=== PATIENT | female | born 1940 | race Two or more races ===

== ENCOUNTER → 2020-05-24 10:58 | Outpatient (BNVA) | payer MEDICARE, SELFPAY | PROVIDERS: PCP Nurse Practitioner Family; Visit Provider Surgery Vascular Surgery | DX: Z76.89 Persons encountering health services in other specified circumstances (principal) ==

== ENCOUNTER → 2020-05-30 11:12 | Outpatient (BNVA) | payer MEDICARE, SELFPAY | PROVIDERS: PCP Nurse Practitioner Family; Referring Provider Nurse Practitioner Family; Visit Provider Internal Medicine | DX: I10 Essential (primary) hypertension (principal); I20.9 Angina pectoris, unspecified; E11.8 Type 2 diabetes mellitus with unspecified complications; E78.49 Other hyperlipidemia | CPT/HCPCS: 93005; 99202 ==

== ENCOUNTER 2020-06-11 10:39 | Outpatient (REF) | payer MEDICARE, SELFPAY ==
--- NOTE | 2020-06-11 10:57 | XR_ITS ---
EXAMINATION: BILATERAL SHOULDER X-RAY CLINICAL INFORMATION: Bilateral shoulder pain COMPARISON: Right shoulder x-ray January 2020 and left shoulder x-ray September 2015 TECHNIQUE: 3 views of the shoulder FINDINGS: Bone alignment is normal. No fracture or dislocation is seen. There is mild arthritis at the glenohumeral and acromioclavicular joints with small osteophytes. Soft tissues are unremarkable. XR/XR shoulder RT min 2V IMPRESSION: Mild bilateral arthritis.
--- NOTE | 2020-06-11 10:57 | XR_ITS ---
EXAMINATION: BILATERAL SHOULDER X-RAY CLINICAL INFORMATION: Bilateral shoulder pain COMPARISON: Right shoulder x-ray January 2020 and left shoulder x-ray September 2015 TECHNIQUE: 3 views of the shoulder FINDINGS: Bone alignment is normal. No fracture or dislocation is seen. There is mild arthritis at the glenohumeral and acromioclavicular joints with small osteophytes. Soft tissues are unremarkable. XR/XR shoulder LT min 2V IMPRESSION: Mild bilateral arthritis.
== END 2020-06-11 10:40 | disposition home or self-care (01) ==
LOC: HO.HOSX 10:39
PROVIDERS: PCP Nurse Practitioner Family; Referring Provider Nurse Practitioner Family; Visit Provider Orthopaedic Surgery
DX: M25.519 Pain in unspecified shoulder (principal); M25.512 Pain in left shoulder; M75.51 Bursitis of right shoulder
CPT/HCPCS: 20610; 73030; 99212; J1100

== ENCOUNTER → 2020-06-12 10:20 | Outpatient (BNVA) | payer MEDICARE, SELFPAY | PROVIDERS: PCP Nurse Practitioner Family; Referring Provider Nurse Practitioner Family; Visit Provider Hospitalist | DX: R91.8 Other nonspecific abnormal finding of lung field (principal); J45.909 Unspecified asthma, uncomplicated | CPT/HCPCS: 99202 ==

== ENCOUNTER 2020-06-20 09:47 | Outpatient (REF) | payer MEDICARE, SELFPAY ==
--- NOTE | 2020-06-20 10:00 | PFT_ITS ---
FLOWS: FEV1 of 142% of predicted at 2.41 L. FVC 142% of predicted at 3.22 L. FEV1 to FVC ratio of 0.75. No bronchodilator response. LUNG VOLUMES: Total lung capacity 109% of predicted at 5.02 L. Residual volume 83% of predicted at 1.87 L. Slow vital capacity 133% of predicted at 3.14 L. Expiratory reserve volume 199% of predicted at 0.80 L. Diffusion capacity is mildly decreased. IMPRESSION: No obstructive or restrictive ventilatory defect. No bronchodilator response. Decreased diffusion capacity suggests emphysema. Ryan Moran MD AP/MODL / [id number]
[2020-06-20 12:10] LABS: Estimated Average Glucose 194 mg/dL; Hemoglobin A1c % 8.4 %
[2020-06-20 12:23] LABS: Alanine Aminotransferase 41 U/L (0-31); Albumin Level 4.1 g/dL (3.5-5.0); Alkaline Phosphatase 101 U/L (39-117); Anion Gap 13 (12-20); Aspartate Amino Transferase 25 U/L (5-31); Bilirubin Total 1.1 mg/dL (0.0-1.0); Blood Urea Nitrogen 22 mg/dL (9-16); Calcium 9.2 mg/dL (8.4-10.2); Carbon Dioxide 28 mmol/L (22-29); Chloride 103 mmol/L (96-108); Cholesterol 144 mg/dL; Estimated Glomerular Filt Rate 55; Glucose Random 295 mg/dL (60-115); HDL Cholesterol 68 mg/dL; LDL Cholesterol Calculated 56 mg/dl; Potassium 3.9 mmol/l (3.3-5.1); Sodium 140 mmol/L (135-145); Total Protein 6.9 g/dL (6.5-8.0); Triglycerides 100 mg/dL
[2020-06-20 12:24] LABS: Creatinine Urine 55.15 mg/dL; Microalbumin Urine < 5.0 mg/L
[2020-06-21 12:01] LABS: LDL Cholesterol Direct 57 mg/dL (<100)
== END 2020-06-20 09:48 | disposition home or self-care (01) ==
LOC: HO.RESP 09:47
PROVIDERS: PCP Nurse Practitioner Family; Visit Provider Hospitalist
DX: J44.9 Chronic obstructive pulmonary disease, unspecified (principal); R06.02 Shortness of breath
CPT/HCPCS: 80053; 80061; 82043; 83036; 83721; 94060; 94727; 94729

== ENCOUNTER → 2020-06-28 13:19 | Outpatient (BNVA) | payer MEDICARE, SELFPAY | PROVIDERS: PCP Nurse Practitioner Family; Visit Provider Internal Medicine | DX: E11.65 Type 2 diabetes mellitus with hyperglycemia (principal); Z79.4 Long term (current) use of insulin; E78.5 Hyperlipidemia, unspecified; I10 Essential (primary) hypertension | CPT/HCPCS: 82947; Q3014 ==

== ENCOUNTER 2020-07-13 10:28 | Outpatient (REF) | payer MEDICARE, SELFPAY | END 2020-07-13 10:29 | disposition home or self-care (01) | LOC: HO.LAB 10:28 | PROVIDERS: PCP Nurse Practitioner Family; Visit Provider Internal Medicine | DX: Z20.828 Contact with and (suspected) exposure to other viral communicable diseases (principal) | CPT/HCPCS: C9803; U0003 ==

== ENCOUNTER → 2020-07-18 08:22 | Outpatient (REF) | payer MEDICARE, SELFPAY ==
--- NOTE | 2020-07-18 | NM_ITS ---
Myocardial perfusion study Indication: Chest pain to evaluate for myocardial ischemia Technique: The patient was brought in for a Lexiscan perfusion study on 07/18/2020. Patient performed low-level exercise and was injected 0.4 mg of Lexiscan intravenously. Within a minute of injection, 25 mCi of sestamibi was given intravenously. Images were obtained using the SPECT gamma camera interlaced with the gating device. Images were obtained in supine position. Resting perfusion study was performed on 07/25/2020. Patient was administered 25 mCi of sestamibi intravenously at rest. Images were then obtained in supine position. Images obtained with and without CT attenuation. Total DLP 68 mGy-cm. Images were processed with the software and compared side to side in short axis, horizontal long axis and vertical long axis views. Findings: The stress perfusion study showed non attenuated images show small area of mildly to moderately reduced uptake in the apex of the LV myocardium. Attenuation corrected images also shows small area of mildly reduced uptake in the apex of the LV myocardium. The gated study shows normal LV systolic function with calculated LVEF of greater than 70 %. LV cavity is normal in size. The gated study shows normal systolic wall thickening and contraction of segments. Resting study shows normal uptake of radiotracer in all segments of LV myocardium. Gating at rest reveals systolic wall motion with ejection fraction at greater than 70 %. The findings are consistent with small area of mild intensity apical ischemia. NM/NM velma perf SPECT rest & str Impression: 1. Myocardial perfusion imaging study shows mild intensity apical ischemia 2. Gated LVEF is greater than 70% 3. Transient ischemic dilatation not present EKG is nondiagnostic for ischemia
--- NOTE | 2020-07-18 08:38 | CA_ITS ---
Transthoracic Echocardiogram Patient (Last, First, Middle): Ana Varghese, Gender: Female Date of : 1940 Age: 79 Procedure Date: 07/18/2020 Procedure Type: Transthoracic Echocardiogram Location: OP Height: 154.94 cm Weight: 65.77 kg BSA: 1.65 m2 Heart Rate: bpm BP: 118 / 54 mmHg Racecar Driver: Lisandro MD: [place] MD General Internist And Physician Leader: Lionel Mcdermott MD Symptoms: I20.9 - Angina pectoris, unspecified Study Quality: Good ECG Rhythm: Sinus Conclusions: - 1. Normal LV systolic function with grade 1 diastolic dysfunction 2. Normal cardiac valvular Doppler 3. Normal RV systolic pressure 4. No pericardial effusion Findings Left Ventricle Normal left ventricular size, thickness, and systolic function. The visually estimated ejection fraction is between 60-65%. Spectral Doppler is indicative of an impaired relaxation filling pattern. E/E prime ratio is <8, consistent with normal filling pressures. Evidence suggests grade I (mild) diastolic dysfunction. Atria The left atrium is normal in size. There is lipomatous hypertrophy of the interatrial septum. There is no evidence of interatrial shunt. The right atrium is normal in size. Aortic Valve There is mild thickening of the aortic valve. There is no aortic valve stenosis. There is no aortic valve regurgitation. Mitral Valve There is mild anterior and posterior mitral leaflet thickening. There is trace mitral valve regurgitation. There is no mitral valve stenosis. Pulmonic Valve The pulmonic valve was not well visualized. Tricuspid Valve Likely normal tricuspid valve structure and function. There is trace tricuspid valve regurgitation. The right ventricular systolic pressure is normal. The right ventricular systolic pressure is 23 mmHg. Normal right atrial pressure. There is no evidence of pulmonary hypertension. Great Vessels All visible segments of the aorta are normal in size. The pulmonary artery was not well visualized. Venous The inferior vena cava is normal in size and collapses greater than 50% with inspiration. Pericardium/Pleural There is no evidence of pericardial effusion. Prior Study Comparison No previous study in the last 5 years for comparison Measurements 2D Linear Measurements RVIDd: 3.22 RVIDd Index: 1.95 IVSd: 1.06 0.6-0.9/0.6-1.0 cm LVIDd: 3.73 3.9-5.3/4.2-5.9 cm LVIDd Index: 2.26 2.4-3.2/2.2-3.1 cm/m2 LVIDs: 2.55 2.0-3.6 cm LVPWd: 0.97 0.7-1.1 cm Ao Root: 2.70 2.1-3.5 cm LA Diam: 3.10 2.7-3.8/3.0-4.0 cm LAIDs Index: 1.88 1.5-2.3 cm/m2 LV Mass: 144.26 67-162/88-224 g LV Mass Index: 87.43 43-95/49-115 g/m2 LVOT Diam: 2.00 3.0+(-)1.3 cm 2D Systolic Function EF 4C: 42.40 >55% EF 2C: 72.30 >55% EF BiP: 59.10 >55% Mitral Valve MV Pk E: 0.55 MV PK A: 1.12 MV Decel Time: 155.00 E/A: 0.50 E'Lateral: 8.27 E'Medial: 4.79 E/E' Med: 11.40 E/E' Lat: 6.60 Aortic Valve AoV Pk Paulino: 1.31 AoV Mn Paulino: 1.08 AoV VTI: 0.24 AoV Pk Grad: 7.00 Aov Mn Grad: 5.00 PIPPA Cont.VTI: 2.57 LVOT LVOT Pk Paulino: 1.14 LVOT Mn Paulino: 0.76 LVOT VTI: 0.20 LVOT Pk Grad: 5.00 LVOT Mn Grad: 3.00 LVOT Diam: 2.00 LVOT Area: 3.14 Diastolic Function MV Pk E: 0.55 MV Pk A: 1.12 E/A: 0.50 E'Medial: 4.79 E/E' Med: 11.40 E' Laterial: 8.27 E/E' Lat: 6.60 Tricuspid Valve TR Pk Paulino: 2.21 TR Pk Grad: 20.00 RA Press: 3.00 RVSP: 23.00 Great Vessels Aorta Ao Root-2D: 2.70 2.0-3.7 cm Ao Asc: 3.30 2.1-3.4 cm Ao Arch: 2.20 Updated in Other Vendor System with Status of Final Lionel Mcdermott MD electronically signed on 07/19/2020 2:24:15 PM with status of Final
--- NOTE | 2020-07-18 08:38 | CA_ITS ---
Acquisition Time: 2020-07-18 10:29:14 Total Exercise Time: 00:02:00 Test Indications: CP Medications: SEE CHART Protocol: LEXISCAN Max HR: 120 BPM 85% of Pred: 140 BPM Max BP: 124/076 mmHG Max Work Load: 1.0 METS Pharmacological stress test with Lexiscan injection, while sitting and kicking her legs, without anginal symptoms, without arrythmia, with normotensive response to injection, with nondiagnostic EKG for ischemia. In recovery she had report of fatigue and was treated with Aminophylline 50mg IVP to reverse Lexiscan with improvement in symptom. Nuclear images pending. Test reviewed with Dr Mcdermott. Referred By: [place] Overread By: ALLYN DOUGLAS
== END ==
LOC: HO.CARD 08:22
PROVIDERS: PCP Nurse Practitioner Family; Visit Provider Internal Medicine
DX: I20.9 Angina pectoris, unspecified (principal)
CPT/HCPCS: 78452; 93017; 93306; A9500; J0280; J2785

== ENCOUNTER → 2020-08-07 12:56 | Outpatient (BNVA) | payer MEDICARE, SELFPAY | PROVIDERS: PCP Nurse Practitioner Family; Visit Provider Internal Medicine | DX: I25.118 Atherosclerotic heart disease of native coronary artery with other forms of angina pectoris (principal); I10 Essential (primary) hypertension; E78.49 Other hyperlipidemia; E11.8 Type 2 diabetes mellitus with unspecified complications | CPT/HCPCS: 99212 ==

== ENCOUNTER 2020-08-14 13:37 | Outpatient (REF) | payer MEDICARE, SELFPAY | END 2020-08-14 13:38 | disposition home or self-care (01) | LOC: HO.LAB 13:37 | PROVIDERS: Visit Provider Internal Medicine | DX: Z20.822 Contact with and (suspected) exposure to COVID-19 (principal) | CPT/HCPCS: 36415; C9803; U0003 ==

== ENCOUNTER 2020-08-15 13:25 | Outpatient (REF) | payer MEDICARE, SELFPAY ==
--- NOTE | 2020-08-15 13:34 | XR_ITS ---
EXAMINATION: XR CHEST CLINICAL INFORMATION: Shortness of breath COMPARISON: Previous chest x-rays most recent September [address] a May 2016 TECHNIQUE: 2 views of the chest were obtained. FINDINGS: The cardiac and mediastinal contours are stable. There are nodules seen at both lung bases. The largest measures approximately 1.6 x 1.8 cm at the right lung base. These do not appear appreciably changed from most recent chest x-ray. B better assessed with chest CT scan if clinically indicated. The lungs are otherwise clear. There is no pleural effusion or pneumothorax. There are degenerative changes of the spine. XR/XR chest 2V IMPRESSION: No change in nodules at the lung bases from previous chest x-ray. No evidence for acute disease in the chest.
== END 2020-08-15 13:26 | disposition home or self-care (01) ==
LOC: HO.XRAY 13:25
PROVIDERS: Absent Provider Nurse Practitioner Family; PCP Nurse Practitioner Family; Visit Provider Nurse Practitioner Family
DX: R06.02 Shortness of breath (principal)
CPT/HCPCS: 71046

== ENCOUNTER 2020-08-20 09:46 | Inpatient (IN) | payer MEDICARE, SELFPAY ==
[2020-08-20] VITALS (8 sets, daily range): BP systolic 114–118; BP diastolic 45–62; PULSE 74–115; RESP 20–116; TEMP 36.7–36.9; O2SAT 68–94; BMI 27.3
--- NOTE | ~2020-08-20 | XR_ITS ---
EXAMINATION: XR CHEST CLINICAL INFORMATION: Dyspnea COMPARISON: Previous chest x-rays most recent 08/27/[address] a July 2020 TECHNIQUE: Frontal view of the chest was obtained. FINDINGS: The cardiac and mediastinal contours are normal. The lung volumes are low. There is evidence of diffuse interstitial lung disease. This does not appear appreciably changed from recent exam. There is question of a new nodular opacity projecting over the left upper lobe scapula and fourth left posterior fourth rib measuring 8 mm. There is question of several new nodular opacities in the right lateral mid lung example measuring 8 mm projecting over the right posterior eighth rib. There may be right apical pleural thickening. There is blunting at the right lateral costophrenic angle questionable. For a small right pleural effusion. There is no left pleural effusion. There is no pneumothorax. There are degenerative changes of the spine and curvature of the lower thoracic and upper lumbar spine to the left. XR/XR chest 1V IMPRESSION: Diffuse interstitial lung disease. This is not appreciably changed from recent exams. Question new small bilateral nodular opacities.
--- NOTE | 2020-08-20 10:10 | ECG_ITS ---
Test Reason : SOB Blood Pressure : / mmHG Vent. Rate : 111 BPM Atrial Rate : 111 BPM P-R Int : 138 ms QRS Dur : 078 ms QT Int : 332 ms P-R-T Axes : 030 -15 035 degrees QTc Int : 451 ms Sinus tachycardia Otherwise normal ECG When compared with ECG of 02-MAY-2017 02:59, Vent. rate has increased BY 45 BPM Referred By: Sruthi Hall Electronically Signed By:Socrates Izaguirre
--- NOTE | 2020-08-20 10:10 | XR_ITS ---
EXAMINATION: XR CHEST CLINICAL INFORMATION: SOB. Covid Positive. COMPARISON: None TECHNIQUE: Frontal view of the chest was obtained. FINDINGS: The lungs are well-expanded with increase interstitial markings in both lungs suggestive of interstitial pneumonitis. No pleural effusion or confluent infiltrate seen. Punctate nodular densities in the left lung base likely small nodules are stable but less distinct. The heart size and pulmonary vascularity is normal. XR/XR chest 1V IMPRESSION: New bilateral interstitial prominence suggestive of interstitial pneumonitis/infiltrate.
--- NOTE | 2020-08-20 10:11 | ED.URI ---
HPI - URI/Sore Throat General Chief Complaint: Upper Respiratory Symptoms Stated Complaint: SOB,LOW SAT 95% ON NRB Time Seen by Provider: 08/20/20 09:58 Source: patient Mode of arrival: ambulatory Limitations: language barrier (Ecuadorean-speaking) History of Present Illness HPI Narrative: 79yoF c PMHx of arthrosclerotic cardiovascular disease, angina pectoralis, hypertension, hyperlipidemia, type 2 diabetes, asthma, COPD and pulmonary nodules presenting to the ED via EMS with complaints of worsening shortness of breath that started yesterday. Reports that she was recently diagnosed with COVID on 08/14/2020 although patient has been having symptoms for 2 weeks. She reports she has been having a sore throat and a dry cough and the shortness of breath started yesterday. Reports that despite taking her albuterol inhalers and nebulized solutions there is no symptomatic relief therefore she called the ambulance to come to the emergency department. Denies any fevers, dizziness, lightheadedness, , headaches, changes in vision, neck pain/stiffness, palpitations, chest pain, focal weakness, extremity edema, any symptoms or any other symptoms complaints or concerns at this time. Patient stated that her daughter's father here of COVID-19 and that she wants to live until she is 89. Related Data Home Medications Medication Instructions Recorded Confirmed atorvastatin 80 mg tablet 80 mg PO BEDTIME 05/30/20 08/20/20 calcium carbonate 600 mg (1,500 1 tab PO BID 05/30/20 08/20/20 mg)-vitamin D3 400 unit tablet clopidogrel 75 mg tablet 75 mg PO DAILY 05/30/20 08/20/20 ergocalciferol (vitamin D2) 1,250 1,250 mcg PO DAILY 05/30/20 08/20/20 mcg (50,000 unit) capsule ezetimibe 10 mg tablet 10 mg PO QAM 05/30/20 08/20/20 metformin 1,000 mg tablet 1,000 mg PO BID 05/30/20 08/20/20 metoprolol succinate 50 mg 50 mg PO DAILY 05/30/20 08/20/20 tablet,extended release 24 hr multivitamin with minerals 1 tab PO QAM 05/30/20 08/20/20 nitroglycerin 0.4 mg sublingual 0.4 mg SUBLINGUAL Q5M PRN 05/30/20 08/20/20 tablet oxybutynin chloride 5 mg 5 mg PO BEDTIME 05/30/20 08/20/20 tablet,extended release 24 hr ramipril 10 mg capsule 10 mg PO QAM 05/30/20 08/20/20 sennosides 8.6 mg tablet 8.6 mg PO BEDTIME PRN 05/30/20 08/20/20 albuterol sulfate 90 mcg/actuation 90 mcg INHALATION Q4H PRN 06/12/20 08/20/20 aerosol inhaler fluticasone propionate 50 2 spray INTRANASAL DAILY PRN 06/12/20 08/20/20 mcg/actuation nasal spray,suspension loratadine 10 mg tablet 10 mg PO QAM 06/12/20 08/20/20 semaglutide 1 mg/dose (2 mg/1.5 2 mg SUBCUT Q28D 06/12/20 08/20/20 mL) subcutaneous pen injector tramadol 50 mg tablet 50 mg PO TID PRN 06/12/20 08/20/20 blood sugar diagnostic #10 ea 06/28/20 08/07/20 insulin glargine 100 unit/mL (3 8 unit SUBCUT BEDTIME ml 06/28/20 08/20/20 mL) subcutaneous pen lancets 33 gauge #100 ea 06/28/20 08/07/20 pen needle, diabetic 32 gauge x #50 ea 06/28/20 08/07/20 5/32 empagliflozin [Jardiance] 1 tab PO QAM 08/20/20 08/20/20 trazodone 1 tab PO BEDTIME PRN 08/20/20 08/20/20 Previous Rx's Medication Instructions Recorded repaglinide 1 mg tablet 1 mg PO TID 30 Days #90 tab 06/28/20 Allergies Allergy/AdvReac Type Severity Reaction Status Date / Time codeine [Codeine] Allergy Mild DIZZINESS, Verified 06/28/20 13:46 VOMITING insulin lispro Allergy Unknown NAUSEA & Verified 06/28/20 13:46 [INSULIN LISPRO] VOMITING oxycodone [OXYCODONE] Allergy Unknown NAUSEA & Verified 06/28/20 13:46 VOMITING Review of Systems Review of Systems: Constitutional : denies med noncompliance, no history of PE or DVT, denies recent travel, No Fever, No Chills ENT/Mouth : No Hoarseness, + sore throat, No Rhinorrhea Eyes: No Redness, No Discharge, No Vision Changes Cardiovascular : +SOB, No Chest Pain, No SOB, No Dyspnea on Exertion, No Edema, no pleurisy, Respiratory : +Cough, No Sputum, no stridor, no hemoptysis, Gastrointestinal : No Nausea, No Vomiting, No Diarrhea, No abdominal Pain Genitourinary : No Dysuria, No Hematuria Musculoskeletal : No joint pain, No Myalgias Extremities: no extremity swelling /pain Skin : No rash, no itching, no swelling Neuro : No Weakness, No Numbness, No Headache Psych : No anxiety, depression Heme/Lymph: No Bruising, No Bleeding Endocrine : No Polyuria, No Polydipsia Yes all other systems are reviewed and are negative [facility] Past Medical History Medical History Asthma Atherosclerotic cardiovascular disease Bursitis of right shoulder COPD (chronic obstructive pulmonary disease) Essential hypertension High cholesterol HLD (hyperlipidemia) HTN (hypertension) Hyperlipidemia, unspecified Pulmonary nodules T2DM (type 2 diabetes mellitus) Type 2 diabetes mellitus with unspecified complications Surgical History History of bunionectomy History of total abdominal hysterectomy and bilateral salpingo-oophorectomy Hx of colonoscopy Family History Family History Mother HTN (hypertension) Social History Social History Smoking Status: Former smoker Advance Directives: No Advance Directives Information Provided: No Physical Exam Vital Signs: Vital Signs: Last Vital Signs Temp 98.5 F 08/20/20 12:43 Pulse 99 08/20/20 14:20 Resp 26 H 08/20/20 14:20 BP 118/62 08/20/20 12:43 Pulse Ox 88 L 08/20/20 14:20 Body Mass Index 27.3 vital signs have been reviewed as normal and appeared to be correct. Blood pressure normal. Heart rate tachycardic. Respiration rate tachypneic. Temperature normal. Oxygen saturation hypoxic. Appearance: Alert. Oriented X3. In respiratory distress oxygen saturations at 68% on room air. Head: Normal external exam. Normocephalic. Atraumatic. Eyes: PERRLA. EOMI. Conjunctiva and sclera normal. Eyelids normal. ENT: Pharynx normal. Uvula midline. Moist mucous membranes. No trismus noted. No drooling noted. No muffled voice noted. Neck: Normal inspection. Neck supple. FROM. No adenopathy. Trachea midline. No meningeal signs. CVS: Normal heart rate and rhythm. Heart sound normal. No murmurs noted. Pulses normal throughout. Respiratory: + respiratory distress. Patient with crackles at bilateral bases of the lungs and decreased breath sounds and accessory muscle usage otherwise no wheezes noted. Chest nontender. Back: Full range of motion noted. Skin: Skin warm and dry. Normal skin color. Normal skin turgor. No rashes/lesions/lacerations noted. Extremities: No lower extremity edema. No calf tenderness noted. No pitting edema noted. Extremities exhibit normal range of motion. Extremities nontender. Neuro: Oriented X 3. No motor deficit. No sensory deficit. Reflexes normal. Course Course Course Narrative: 10:25am - 79yoF c PMHx of arthrosclerotic cardiovascular disease, angina pectoralis, hypertension, hyperlipidemia, type 2 diabetes, asthma, COPD and pulmonary nodules presenting to the ED via EMS with complaints of worsening shortness of breath that started yesterday has been having these symptoms for 2 weeks. Tested positive for COVID on 08/14/2020. Reports has been taking her albuterol and nebulizer solutions without any symptomatic relief. - patient arrived placed on a cardiac cath technologist immediately she was noted to be hypoxic at 68% on room air therefore was placed on 15 L of high-flow nasal cannula oxygen and is now up to 89-91% at 15 L. patient is also tachypneic and tachycardic. Is afebrile. Otherwise appears comfortable. Not septic appearing. - Concern for PE vs COVID-19 PNA - Plan: Labs, CXR, EKG, CT scan of chest for PE. ABGs. Blood cultures and lactic acid although I believe this is viral COVID pneumonia due to patient positive on 08/14/2020. Provide a L of IV fluids and 10 mg of IV Decadron then re-evaluate. Reevaluation(s) Reevaluation #1: - patient's ABG is consistent with mix primary respiratory alkalosis and metabolic acidosis. Troponin 12.9. D-dimer 371. Blood glucose level 503 although patient received a L of IV fluids and rechecking the patient's blood glucose is 300. BUN 34. COVID labs including ferritin/total bilirubin/direct bilirubin/AST/ALT/alkaline phosphate/LDH all elevated. Procalcitonin within normal limits. Lactic acid 2.3. Otherwise all other labs are within normal limits. - chest x-ray revealed new bilateral interstitial prominence suggestive of interstitial pneumonitis/infiltrate. - therefore due to elevated D-dimer and patient having a low O2 sat/hypoxia a CTA was obtained and revealed a pulmonary nodule that has increased in size from 1.5-1.6. Chronic changes no acute processes and no acute consolidation. - patient was given Rocephin. - will repeat troponin 3 hours after the 1st although patient denies any active chest pain and EKG was sinus tachycardia no acute ischemic changes noted. - Will plan to admit for COVID pneumonia/hypoxia/respiratory failure. Patient understands agrees the plan. Time: 13:13 Reevaluation #2: - repeat troponin 22.7 although patient continues to deny any active chest pain. This is most likely elevated due to hypoxic demand. I consulted with soa architect Dr. Izaguirre who reported there is nothing else to do at this time. Will plan to admit. Kemi Santana at room this time evaluating patient. Patient understands agrees the plan. Time: 14:51 MDM - URI/Sore Throat Medical Records Attestation: I reviewed the patient's medical records. Lab Data Attestation: I reviewed the patient's lab results. Result diagrams: 08/20/20 10:23 08/20/20 10:23 Labs: Lab Results 08/20/20 08/20/20 08/20/20 Range/Units 10:15 10:23 10:23 WBC 8.7 (4.8-10.8) X10*3/uL RBC 4.91 (4.20-5.50) X10*6/uL Hgb 12.9 (12.0-16.0) g/dl Hct 39.8 (37-47) % MCV 81.1 (80-98) fL MCH 26.3 L (27.0-33.0) pg MCHC 32.4 (31.0-35.0) g/dl RDW 12.4 (11.0-16.0) % Plt Count 215 (160-400) X10*3/uL MPV 9.4 (9.4-12.3) fL Immature Gran % (Auto) 0.5 H (0.0-0.4) % Neut % (Auto) 90.8 H (45-73) % Lymph % (Auto) 5.3 L (20-40) % Mccone % (Auto) 3.3 (2-11) % Eos % (Auto) 0.0 (0-4) % Baso % (Auto) 0.1 (0-2) % Lymph # (Auto) 0.5 L (1.2-4.9) X10*3/uL Mccone # (Auto) 0.3 (0.1-1.2) X10*3/uL Eos # (Auto) 0.0 (0.0-0.4) X10*3/uL Baso # (Auto) 0.0 (0.0-0.2) X10*3/uL Abs Immat Gran (auto) 0.04 H (0.00-0.03) X10*3/uL Absolute Neuts (auto) 7.9 (2.0-8.3) X10*3/uL Absolute Nucleated RBC 0.000 (0.0-0.012) X10*3/uL Nucleated RBC % (auto) 0.0 (0.0-0.2) /100WBC Smear Tech's Comments VERIFIED PT (10.8-13.0) SEC INR (0.9-1.1) APTT (24.1-38.0) SEC D-Dimer NG/ML ABG pH 7.42 (7.35-7.45) ABG pCO2 30 L (32-45) mmHg ABG pO2 68 L (83-108) mmHg ABG HCO3 20 L (22-26) mmol/L ABG O2 Saturation 92.0 % ABG Base Excess -3.1 Oxygen Given 9-15 L Sodium 136 (135-145) mmol/L Potassium 3.7 (3.3-5.1) mmol/l Chloride 99 (96-108) mmol/L Carbon Dioxide 23 (22-29) mmol/L Anion Gap 18 (12-20) BUN 34 H D (9-16) mg/dL Creatinine 1.05 (0.5-1.4) mg/dL Estim Creat Clear Calc 37.1 Estimated GFR 50 POC Glucose (60-115) mg/dL Random Glucose 503 H* (60-115) mg/dL Lactic Acid (0.5-2.0) mmol/L Lactic Acid Fup @ 2Hr (0.5-2.0) mmol/L Calcium 8.4 D (8.4-10.2) mg/dL Magnesium 2.2 (1.6-2.6) mg/dL Ferritin (10-250) ng/mL Total Bilirubin 1.2 H (0.0-1.0) mg/dL Direct Bilirubin 0.6 H (0.0-0.5) mg/dL AST 39 H D (5-31) U/L ALT 37 H (0-31) U/L Alkaline Phosphatase 118 H (39-117) U/L Lactate Dehydrogenase 320 H (122-220) U/L Troponin I High Sens (<3.5-17.0) ng/L B-Natriuretic Peptide (<100) pg/mL Total Protein 7.0 (6.5-8.0) g/dL Albumin 4.0 (3.5-5.0) g/dL Procalcitonin ng/mL 08/20/20 08/20/20 08/20/20 Range/Units 10:23 10:23 10:23 WBC (4.8-10.8) X10*3/uL RBC (4.20-5.50) X10*6/uL Hgb (12.0-16.0) g/dl Hct (37-47) % MCV (80-98) fL MCH (27.0-33.0) pg MCHC (31.0-35.0) g/dl RDW (11.0-16.0) % Plt Count (160-400) X10*3/uL MPV (9.4-12.3) fL Immature Gran % (Auto) (0.0-0.4) % Neut % (Auto) (45-73) % Lymph % (Auto) (20-40) % Mccone % (Auto) (2-11) % Eos % (Auto) (0-4) % Baso % (Auto) (0-2) % Lymph # (Auto) (1.2-4.9) X10*3/uL Mccone # (Auto) (0.1-1.2) X10*3/uL Eos # (Auto) (0.0-0.4) X10*3/uL Baso # (Auto) (0.0-0.2) X10*3/uL Abs Immat Gran (auto) (0.00-0.03) X10*3/uL Absolute Neuts (auto) (2.0-8.3) X10*3/uL Absolute Nucleated RBC (0.0-0.012) X10*3/uL Nucleated RBC % (auto) (0.0-0.2) /100WBC Smear Tech's Comments PT 14.0 H (10.8-13.0) SEC INR 1.2 H (0.9-1.1) APTT 28.5 (24.1-38.0) SEC D-Dimer 371 NG/ML ABG pH (7.35-7.45) ABG pCO2 (32-45) mmHg ABG pO2 (83-108) mmHg ABG HCO3 (22-26) mmol/L ABG O2 Saturation % ABG Base Excess Oxygen Given Sodium (135-145) mmol/L Potassium (3.3-5.1) mmol/l Chloride (96-108) mmol/L Carbon Dioxide (22-29) mmol/L Anion Gap (12-20) BUN (9-16) mg/dL Creatinine (0.5-1.4) mg/dL Estim Creat Clear Calc Estimated GFR POC Glucose (60-115) mg/dL Random Glucose (60-115) mg/dL Lactic Acid 2.3 H* (0.5-2.0) mmol/L Lactic Acid Fup @ 2Hr (0.5-2.0) mmol/L Calcium (8.4-10.2) mg/dL Magnesium (1.6-2.6) mg/dL Ferritin 453 H (10-250) ng/mL Total Bilirubin (0.0-1.0) mg/dL Direct Bilirubin (0.0-0.5) mg/dL AST (5-31) U/L ALT (0-31) U/L Alkaline Phosphatase (39-117) U/L Lactate Dehydrogenase (122-220) U/L Troponin I High Sens (<3.5-17.0) ng/L B-Natriuretic Peptide (<100) pg/mL Total Protein (6.5-8.0) g/dL Albumin (3.5-5.0) g/dL Procalcitonin ng/mL 08/20/20 08/20/20 08/20/20 Range/Units 10:23 10:23 13:05 WBC (4.8-10.8) X10*3/uL RBC (4.20-5.50) X10*6/uL Hgb (12.0-16.0) g/dl Hct (37-47) % MCV (80-98) fL MCH (27.0-33.0) pg MCHC (31.0-35.0) g/dl RDW (11.0-16.0) % Plt Count (160-400) X10*3/uL MPV (9.4-12.3) fL Immature Gran % (Auto) (0.0-0.4) % Neut % (Auto) (45-73) % Lymph % (Auto) (20-40) % Mccone % (Auto) (2-11) % Eos % (Auto) (0-4) % Baso % (Auto) (0-2) % Lymph # (Auto) (1.2-4.9) X10*3/uL Mccone # (Auto) (0.1-1.2) X10*3/uL Eos # (Auto) (0.0-0.4) X10*3/uL Baso # (Auto) (0.0-0.2) X10*3/uL Abs Immat Gran (auto) (0.00-0.03) X10*3/uL Absolute Neuts (auto) (2.0-8.3) X10*3/uL Absolute Nucleated RBC (0.0-0.012) X10*3/uL Nucleated RBC % (auto) (0.0-0.2) /100WBC Smear Tech's Comments PT (10.8-13.0) SEC INR (0.9-1.1) APTT (24.1-38.0) SEC D-Dimer NG/ML ABG pH (7.35-7.45) ABG pCO2 (32-45) mmHg ABG pO2 (83-108) mmHg ABG HCO3 (22-26) mmol/L ABG O2 Saturation % ABG Base Excess Oxygen Given Sodium (135-145) mmol/L Potassium (3.3-5.1) mmol/l Chloride (96-108) mmol/L Carbon Dioxide (22-29) mmol/L Anion Gap (12-20) BUN (9-16) mg/dL Creatinine (0.5-1.4) mg/dL Estim Creat Clear Calc Estimated GFR POC Glucose 300 H (60-115) mg/dL Random Glucose (60-115) mg/dL Lactic Acid (0.5-2.0) mmol/L Lactic Acid Fup @ 2Hr (0.5-2.0) mmol/L Calcium (8.4-10.2) mg/dL Magnesium (1.6-2.6) mg/dL Ferritin (10-250) ng/mL Total Bilirubin (0.0-1.0) mg/dL Direct Bilirubin (0.0-0.5) mg/dL AST (5-31) U/L ALT (0-31) U/L Alkaline Phosphatase (39-117) U/L Lactate Dehydrogenase (122-220) U/L Troponin I High Sens 12.9 (<3.5-17.0) ng/L B-Natriuretic Peptide 27 (<100) pg/mL Total Protein (6.5-8.0) g/dL Albumin (3.5-5.0) g/dL Procalcitonin 0.13 ng/mL 08/20/20 08/20/20 Range/Units 13:54 13:54 WBC (4.8-10.8) X10*3/uL RBC (4.20-5.50) X10*6/uL Hgb (12.0-16.0) g/dl Hct (37-47) % MCV (80-98) fL MCH (27.0-33.0) pg MCHC (31.0-35.0) g/dl RDW (11.0-16.0) % Plt Count (160-400) X10*3/uL MPV (9.4-12.3) fL Immature Gran % (Auto) (0.0-0.4) % Neut % (Auto) (45-73) % Lymph % (Auto) (20-40) % Mccone % (Auto) (2-11) % Eos % (Auto) (0-4) % Baso % (Auto) (0-2) % Lymph # (Auto) (1.2-4.9) X10*3/uL Mccone # (Auto) (0.1-1.2) X10*3/uL Eos # (Auto) (0.0-0.4) X10*3/uL Baso # (Auto) (0.0-0.2) X10*3/uL Abs Immat Gran (auto) (0.00-0.03) X10*3/uL Absolute Neuts (auto) (2.0-8.3) X10*3/uL Absolute Nucleated RBC (0.0-0.012) X10*3/uL Nucleated RBC % (auto) (0.0-0.2) /100WBC Smear Tech's Comments PT (10.8-13.0) SEC INR (0.9-1.1) APTT (24.1-38.0) SEC D-Dimer NG/ML ABG pH (7.35-7.45) ABG pCO2 (32-45) mmHg ABG pO2 (83-108) mmHg ABG HCO3 (22-26) mmol/L ABG O2 Saturation % ABG Base Excess Oxygen Given Sodium (135-145) mmol/L Potassium (3.3-5.1) mmol/l Chloride (96-108) mmol/L Carbon Dioxide (22-29) mmol/L Anion Gap (12-20) BUN (9-16) mg/dL Creatinine (0.5-1.4) mg/dL Estim Creat Clear Calc Estimated GFR POC Glucose (60-115) mg/dL Random Glucose (60-115) mg/dL Lactic Acid (0.5-2.0) mmol/L Lactic Acid Fup @ 2Hr 1.1 (0.5-2.0) mmol/L Calcium (8.4-10.2) mg/dL Magnesium (1.6-2.6) mg/dL Ferritin (10-250) ng/mL Total Bilirubin (0.0-1.0) mg/dL Direct Bilirubin (0.0-0.5) mg/dL AST (5-31) U/L ALT (0-31) U/L Alkaline Phosphatase (39-117) U/L Lactate Dehydrogenase (122-220) U/L Troponin I High Sens 22.7 H D (<3.5-17.0) ng/L B-Natriuretic Peptide (<100) pg/mL Total Protein (6.5-8.0) g/dL Albumin (3.5-5.0) g/dL Procalcitonin ng/mL Imaging Data Chest x-ray: Attestation: I personally reviewed and interpreted this imaging study as follows: Radiologist's impression: FINDINGS: The lungs are well-expanded with increase interstitial markings in both lungs suggestive of interstitial pneumonitis. No pleural effusion or confluent infiltrate seen. Punctate nodular densities in the left lung base likely small nodules are stable but less distinct. The heart size and pulmonary vascularity is normal. XR/XR chest 1V IMPRESSION: New bilateral interstitial prominence suggestive of interstitial pneumonitis/infiltrate. CTA of chest for PE: Attestation: I personally reviewed and interpreted this imaging study as follows: Radiologist's impression: FINDINGS: QUALITY OF STUDY/CONTRAST BOLUS: Satisfactory. PULMONARY ARTERIES: No central or segmental pulmonary emboli. THORACIC AORTA: No aneurysm or dissection. LUNG: There is diffuse paraseptal emphysema with extensive reticular linear changes and honeycombing in both upper lobes, lower lobes, right middle lobe and lingula suggestive of chronic interstitial lung changes. There is a 1.7 cm nodule right lower lobe, appears comminuted the right inferior pulmonary artery. On previous CTA chest it measured 1.6 cm. No additional nodules seen. PLEURA: No pleural effusion or pneumothorax. MEDIASTINUM: The heart size is normal. The great vessels are normal caliber. No evidence of septal bowing or right heart strain. There is widely patent. Moderate shotty lymph nodes in the mediastinum. CHEST WALL/AXILLA: No axillary or internal mammary lymphadenopathy. OSSEOUS STRUCTURES: No acute or suspicious osseous abnormality. UPPER ABDOMEN: Visualized liver, spleen, pancreas and bilateral adrenal glands are unremarkable. No radiopaque gallstones. No reflux of contrast into the hepatic veins to suggest elevated right heart pressures. CT/CT angio chest PE protocol IMPRESSION: No evidence of. No evidence of aortic dissection or aneurysm. Findings suggestive chronic interstitial fibrosis. Large enhancing pulmonary nodule right lower lobe likely indicating to the inferior pulmonary artery. No major change. Para spiculated lesion seen in the right upper lobe on the previous exam is not seen at this time. There is no suggestion for acute consolidation. ECG Data Attestation: I personally reviewed and interpreted this ECG as follows: ECG interpretation date: 08/20/20 ECG interpretation time: 10:05 Interpretation: Sinus tachycardia with a ventricular rate of 111 with a normal NV interval normal QRS duration normal QT/QTC interval. No acute ischemic changes noted. Compared to prior EKG on 05/30/2020. Critical Care Time Critical Care Time Critical Care Time: Yes Total Critical Care Time: 60 Attestation: I personally attest to this time spent taking care of the patient Discharge Plan Discharge Clinical Impression: COVID-19, Hypoxia, Acute respiratory alkalosis, Metabolic acidosis, Acute respiratory failure due to COVID-19, Viral sepsis Patient Disposition: Admitted As Inpatient
--- NOTE | 2020-08-20 10:19 | CT_ITS ---
EXAMINATION: CT ANGIOGRAM OF THE CHEST WITH AND WITHOUT CONTRAST (CT PULMONARY ANGIOGRAM FOR PE) CLINICAL INFORMATION: Reason for Exam pt c sob + covid ? PE COMPARISON: Chest x-ray 08/15/2020 and CTA chest 05/27/2016 TECHNIQUE: Prior to contrast administration, noncontrast localization images were obtained. Subsequently, multidetector volumetric imaging was performed from the thoracic inlet to below the diaphragms following the administration of 80 mL Omnipaque 350 intravenous contrast. No contrast reaction reported Sagittal, coronal, and MIP oblique sagittal reformatted images were obtained on the CT workstation, uploaded to PACS, and reviewed. This CT examination was performed using dose optimization techniques as appropriate, variously including the following: *Automated exposure control *Adjustment of mA and/or kV according to patient size (this includes techniques or standardized protocols for targeted exams where dose is matched to indication/reason for exam; i.e. extremities or head) *Use of iterative reconstruction technique Total exam dose-length product 242 mGy-cm FINDINGS: QUALITY OF STUDY/CONTRAST BOLUS: Satisfactory. PULMONARY ARTERIES: No central or segmental pulmonary emboli. THORACIC AORTA: No aneurysm or dissection. LUNG: There is diffuse paraseptal emphysema with extensive reticular linear changes and honeycombing in both upper lobes, lower lobes, right middle lobe and lingula suggestive of chronic interstitial lung changes. There is a 1.7 cm nodule right lower lobe, appears comminuted the right inferior pulmonary artery. On previous CTA chest it measured 1.6 cm. No additional nodules seen. PLEURA: No pleural effusion or pneumothorax. MEDIASTINUM: The heart size is normal. The great vessels are normal caliber. No evidence of septal bowing or right heart strain. There is widely patent. Moderate shotty lymph nodes in the mediastinum. CHEST WALL/AXILLA: No axillary or internal mammary lymphadenopathy. OSSEOUS STRUCTURES: No acute or suspicious osseous abnormality. UPPER ABDOMEN: Visualized liver, spleen, pancreas and bilateral adrenal glands are unremarkable. No radiopaque gallstones. No reflux of contrast into the hepatic veins to suggest elevated right heart pressures. CT/CT angio chest PE protocol IMPRESSION: No evidence of. No evidence of aortic dissection or aneurysm. Findings suggestive chronic interstitial fibrosis. Large enhancing pulmonary nodule right lower lobe likely indicating to the inferior pulmonary artery. No major change. Para spiculated lesion seen in the right upper lobe on the previous exam is not seen at this time. There is no suggestion for acute consolidation.
[2020-08-20 10:32] LABS: Basophils Percent Auto 0.1 % (0-2); Hematocrit 39.8 % (37-47); Hemoglobin 12.9 g/dl (12.0-16.0); Imm Gran Abs Auto 0.04 X10*3/uL (0.00-0.03); Imm Gran Pct Auto 0.5 % (0.0-0.4); Lymphocytes Absolute Auto 0.5 X10*3/uL (1.2-4.9); Lymphocytes Percent Auto 5.3 % (20-40); MANUAL DIFF FLAG SCAN; Mean Corpuscular HGB Conc 32.4 g/dl (31.0-35.0); Mean Corpuscular Hemoglobin 26.3 pg (27.0-33.0); Mean Corpuscular Volume 81.1 fL (80-98); Mean Platelet Volume 9.4 fL (9.4-12.3); Monocytes Absolute Auto 0.3 X10*3/uL (0.1-1.2); Monocytes Percent Auto 3.3 % (2-11); Neutrophils Absolute Auto 7.9 X10*3/uL (2.0-8.3); Neutrophils Percent Auto 90.8 % (45-73); Platelet Count 215 X10*3/uL (160-400); Red Blood Count 4.91 X10*6/uL (4.20-5.50); Red Cell Distribution Width 12.4 % (11.0-16.0); SCAN SMEAR FLAG 1; White Blood Count 8.7 X10*3/uL (4.8-10.8)
[2020-08-20] MEDS: 0.9 % Sodium Chloride 1,000 ML 999 ML IVCONT ×2 (10:32→14:22)
[2020-08-20 10:33] LABS: ABG PCO2 30 mmHg (32-45); Base Excess ABG -3.1; HCO3 ABG 20 mmol/L (22-26); PO2 ABG 68 mmHg (83-108); pH ABG 7.42 (7.35-7.45)
[2020-08-20 10:38] LABS: INTERNATIONAL NORM RATIO 1.2 (0.9-1.1)
[2020-08-20 10:41] LABS: Partial Thromboplastin Time 28.5 SEC (24.1-38.0)
[2020-08-20 10:47] LABS: D Dimer 371 NG/ML
[2020-08-20 10:59] LABS: Lactic Acid 2.3 mmol/L (0.5-2.0)
[2020-08-20 11:05] LABS: B Type Natriuretic Peptide 27 pg/mL (<100); Troponin-I High Sensitivity 12.9 ng/L (<3.5-17.0)
[2020-08-20 11:10] LABS: SLIDE REVIEW VERIFIED
[2020-08-20 11:21] LABS: Procalcitonin 0.13 ng/mL
[2020-08-20 11:24] LABS: Ferritin 453 ng/mL (10-250)
[2020-08-20 11:35] LABS: Alanine Aminotransferase 37 U/L (0-31); Alkaline Phosphatase 118 U/L (39-117); Anion Gap 18 (12-20); Aspartate Amino Transferase 39 U/L (5-31); Bilirubin Direct 0.6 mg/dL (0.0-0.5); Bilirubin Total 1.2 mg/dL (0.0-1.0); Blood Urea Nitrogen 34 mg/dL (9-16); Calcium 8.4 mg/dL (8.4-10.2); Carbon Dioxide 23 mmol/L (22-29); Chloride 99 mmol/L (96-108); Creatinine Clr Calc Pharmacy 37.1; Estimated Glomerular Filt Rate 50; Glucose Random 503 mg/dL (60-115); Lactate Dehydrogenase 320 U/L (122-220); Magnesium 2.2 mg/dL (1.6-2.6); Potassium 3.7 mmol/l (3.3-5.1); Sodium 136 mmol/L (135-145)
[2020-08-20 12:29] LABS: Reflex Lactate? Lactic Acid Added
[2020-08-20] MEDS: iohexoL 350 MG/ML 100 ML INFUS..BTL 65 ML IV (12:39)
[2020-08-20] MEDS: cefTRIAXone sodium 1 GM in 0.9 % Sodium Chloride 50 ML IV (12:44)
[2020-08-20 13:08] LABS: Glucose, Whole Blood 300 mg/dL (60-115)
[2020-08-20 14:21] LABS: ~Lactic Acid-LAB USE ONLY 1.1 mmol/L (0.5-2.0)
[2020-08-20 14:34] LABS: Troponin-I High Sensitivity 22.7 ng/L (<3.5-17.0)
--- NOTE | 2020-08-20 14:43 | PC.NURSE ---
PT SPO2 NOTED TO BE IN MID-UPPER 80'S, O2 INCREASED FROM 12LPM TO 15LPM, PT C/O ABD PAIN, APPEARS TO BE IN DISCOMFORT, MOANING, GUARDING ABDOMEN. PT PLACED ON BED RESENDIZ, LINENS CHANGED. WITH MINIMAL MOVEMENT TO SIT UPRIGHT IN BED PT'S SPO2 DROPPED FROM 89% TO LOW 80'S, LIS BENJAMIN AT BEDSIDE AWARE. PT ASKING FOR FOOD.
--- NOTE | 2020-08-20 15:17 | P.HPHOSP_ITS ---
History of Present Illness Date of Service: 08/20/20 Chief Complaint: shortness of breath This is a female recently diagnosed with COVID-19 who presents to the emergency department with shortness of breath. She was tested last Thursday (6 days ago) found on as she was positive. Symptoms started 3 days prior to being tested. As well as dry cough. Today she checked her oxygen saturation at home and it was low and her daughter told her to come to the emergency department. Oxygen saturation was documented as low as 68% on room air. She was was tachycardic and tachypneic on arrival. Has improved somewhat on supplemental oxygen, oxygen saturation 88-91% on 12 L nasal cannula. CTA shows chronic i nterstitial fibrosis, pulmonary nodule, no evidence for PE. COVID 19 test positive, Inflammatory markers elevated ferritin 453, LDH 320, CRP 12.84. She was started on Decadron and the decision was made to admit her for further management Review of Systems Review of Systems: Yes all other systems are reviewed and are negative Constitutional: Constitutional: Denies chills and Denies fever(s) Cardiovascular: Cardiovascular: Denies chest pain and Reports dyspnea Respiratory: Respiratory: Reports cough and Reports dyspnea Gastrointestinal: Gastrointestinal: Denies abdominal pain [facility] Medical History Asthma Atherosclerotic cardiovascular disease Bursitis of right shoulder COPD (chronic obstructive pulmonary disease) Essential hypertension High cholesterol HLD (hyperlipidemia) HTN (hypertension) Hyperlipidemia, unspecified Pulmonary nodules T2DM (type 2 diabetes mellitus) Type 2 diabetes mellitus with unspecified complications Functional capacity: uses cane/walker Family History Mother HTN (hypertension) Surgical History History of bunionectomy History of total abdominal hysterectomy and bilateral salpingo-oophorectomy Hx of colonoscopy Social History (Updated 08/20/20 @ 15:26 by LIS Schmitt) Alcohol intake: never Smoking Status: Former smoker Use of substances other than those prescribed or required for medical reasons: No Advance Directives: No Advance Directives Information Provided: No Meds Allergies Allergy/AdvReac Type Severity Reaction Status Date / Time codeine [Codeine] Allergy Mild DIZZINESS, Verified 06/28/20 13:46 VOMITING insulin lispro Allergy Unknown NAUSEA & Verified 06/28/20 13:46 [INSULIN LISPRO] VOMITING oxycodone [OXYCODONE] Allergy Unknown NAUSEA & Verified 06/28/20 13:46 VOMITING Home Medications Medication Instructions Recorded Confirmed Type atorvastatin 80 mg tablet 80 mg PO BEDTIME 05/30/20 08/20/20 History calcium carbonate 600 mg (1,500 1 tab PO BID 05/30/20 08/20/20 History mg)-vitamin D3 400 unit tablet clopidogrel 75 mg tablet 75 mg PO DAILY 05/30/20 08/20/20 History ergocalciferol (vitamin D2) 1,250 1,250 mcg PO DAILY 05/30/20 08/20/20 History mcg (50,000 unit) capsule ezetimibe 10 mg tablet 10 mg PO QAM 05/30/20 08/20/20 History metformin 1,000 mg tablet 1,000 mg PO BID 05/30/20 08/20/20 History metoprolol succinate 50 mg 50 mg PO DAILY 05/30/20 08/20/20 History tablet,extended release 24 hr multivitamin with minerals 1 tab PO QAM 05/30/20 08/20/20 History nitroglycerin 0.4 mg sublingual 0.4 mg SUBLINGUAL Q5M PRN 05/30/20 08/20/20 History tablet oxybutynin chloride 5 mg 5 mg PO BEDTIME 05/30/20 08/20/20 History tablet,extended release 24 hr ramipril 10 mg capsule 10 mg PO QAM 05/30/20 08/20/20 History sennosides 8.6 mg tablet 8.6 mg PO BEDTIME PRN 05/30/20 08/20/20 History albuterol sulfate 90 mcg/actuation 90 mcg INHALATION Q4H PRN 06/12/20 08/20/20 History aerosol inhaler fluticasone propionate 50 2 spray INTRANASAL DAILY PRN 06/12/20 08/20/20 History mcg/actuation nasal spray,suspension loratadine 10 mg tablet 10 mg PO QAM 06/12/20 08/20/20 History semaglutide 1 mg/dose (2 mg/1.5 2 mg SUBCUT Q28D 06/12/20 08/20/20 History mL) subcutaneous pen injector tramadol 50 mg tablet 50 mg PO TID PRN 06/12/20 08/20/20 History blood sugar diagnostic #10 ea 06/28/20 08/07/20 History insulin glargine 100 unit/mL (3 8 unit SUBCUT BEDTIME ml 06/28/20 08/20/20 History mL) subcutaneous pen lancets 33 gauge #100 ea 06/28/20 08/07/20 History pen needle, diabetic 32 gauge x #50 ea 06/28/20 08/07/20 History empagliflozin [Jardiance] 1 tab PO QAM 08/20/20 08/20/20 History trazodone 1 tab PO BEDTIME PRN 08/20/20 08/20/20 History Physical Exam Vital Signs and Narrative: Vital Signs: Last Vital Signs Temp 98.5 F 08/20/20 12:43 Pulse 99 08/20/20 14:20 Resp 26 H 08/20/20 14:20 BP 118/62 08/20/20 12:43 Pulse Ox 88 L 08/20/20 14:20 Body Mass Index 27.3 Const: Nutritional Appearance: well nourished Orientation/consciousness: patient oriented x3 HENMT: Head: Yes normocephalic and Yes atraumatic Eyes: Sclerae: sclerae normal Chest: Chest palpation & inspection: normal inspection of the chest Resp: Effort & Inspection: tachypneic Cardio: Rate: regular rate Rhythm: regular rhythm GI: Palpation (GI): Soft to palpation and nontender Skin: General skin exam: no rashes or lesions noted Neuro: General: patient oriented x3 Cranial nerves: Yes CN's II-XII intact bilaterally and Yes Bilaterally intact EOM present Extrem: General: Yes normal to inspection Results Labs CBC and Chem 7: 08/20/20 10:23 08/20/20 10:23 Labs: Laboratory Results - last 24 hr 08/20/20 08/20/20 08/20/20 10:15 10:23 10:23 MCV 81.1 MCH 26.3 L MCHC 32.4 RDW 12.4 Plt Count 215 MPV 9.4 Immature Gran % (Auto) 0.5 H Neut % (Auto) 90.8 H Lymph % (Auto) 5.3 L [place] % (Auto) 3.3 Eos % (Auto) 0.0 Baso % (Auto) 0.1 Lymph # (Auto) 0.5 L [place] # (Auto) 0.3 Eos # (Auto) 0.0 Baso # (Auto) 0.0 Abs Immat Gran (auto) 0.04 H Absolute Neuts (auto) 7.9 Absolute Nucleated RBC 0.000 Nucleated RBC % (auto) 0.0 Smear Tech's Comments VERIFIED PT INR APTT D-Dimer ABG pH 7.42 ABG pCO2 30 L ABG pO2 68 L ABG HCO3 20 L ABG O2 Saturation 92.0 ABG Base Excess -3.1 Oxygen Given 9-15 L Anion Gap 18 Estim Creat Clear Calc 37.1 Estimated GFR 50 POC Glucose Random Glucose 503 H* Lactic Acid Lactic Acid Fup @ 2Hr Calcium 8.4 D Magnesium 2.2 Ferritin Total Bilirubin 1.2 H Direct Bilirubin 0.6 H AST 39 H D ALT 37 H Alkaline Phosphatase 118 H Lactate Dehydrogenase 320 H Troponin I High Sens B-Natriuretic Peptide Total Protein 7.0 Albumin 4.0 Procalcitonin 08/20/20 08/20/20 08/20/20 10:23 10:23 10:23 MCV MCH MCHC RDW Plt Count MPV Immature Gran % (Auto) Neut % (Auto) Lymph % (Auto) [place] % (Auto) Eos % (Auto) Baso % (Auto) Lymph # (Auto) [place] # (Auto) Eos # (Auto) Baso # (Auto) Abs Immat Gran (auto) Absolute Neuts (auto) Absolute Nucleated RBC Nucleated RBC % (auto) Smear Tech's Comments PT 14.0 H INR 1.2 H APTT 28.5 D-Dimer 371 ABG pH ABG pCO2 ABG pO2 ABG HCO3 ABG O2 Saturation ABG Base Excess Oxygen Given Anion Gap Estim Creat Clear Calc Estimated GFR POC Glucose Random Glucose Lactic Acid 2.3 H* Lactic Acid Fup @ 2Hr Calcium Magnesium Ferritin 453 H Total Bilirubin Direct Bilirubin AST ALT Alkaline Phosphatase Lactate Dehydrogenase Troponin I High Sens B-Natriuretic Peptide Total Protein Albumin Procalcitonin 08/20/20 08/20/20 08/20/20 10:23 10:23 13:05 MCV MCH MCHC RDW Plt Count MPV Immature Gran % (Auto) Neut % (Auto) Lymph % (Auto) [place] % (Auto) Eos % (Auto) Baso % (Auto) Lymph # (Auto) [place] # (Auto) Eos # (Auto) Baso # (Auto) Abs Immat Gran (auto) Absolute Neuts (auto) Absolute Nucleated RBC Nucleated RBC % (auto) Smear Tech's Comments PT INR APTT D-Dimer ABG pH ABG pCO2 ABG pO2 ABG HCO3 ABG O2 Saturation ABG Base Excess Oxygen Given Anion Gap Estim Creat Clear Calc Estimated GFR POC Glucose 300 H Random Glucose Lactic Acid Lactic Acid Fup @ 2Hr Calcium Magnesium Ferritin Total Bilirubin Direct Bilirubin AST ALT Alkaline Phosphatase Lactate Dehydrogenase Troponin I High Sens 12.9 B-Natriuretic Peptide 27 Total Protein Albumin Procalcitonin 0.13 08/20/20 08/20/20 13:54 13:54 MCV MCH MCHC RDW Plt Count MPV Immature Gran % (Auto) Neut % (Auto) Lymph % (Auto) [place] % (Auto) Eos % (Auto) Baso % (Auto) Lymph # (Auto) [place] # (Auto) Eos # (Auto) Baso # (Auto) Abs Immat Gran (auto) Absolute Neuts (auto) Absolute Nucleated RBC Nucleated RBC % (auto) Smear Tech's Comments PT INR APTT D-Dimer ABG pH ABG pCO2 ABG pO2 ABG HCO3 ABG O2 Saturation ABG Base Excess Oxygen Given Anion Gap Estim Creat Clear Calc Estimated GFR POC Glucose Random Glucose Lactic Acid Lactic Acid Fup @ 2Hr 1.1 Calcium Magnesium Ferritin Total Bilirubin Direct Bilirubin AST ALT Alkaline Phosphatase Lactate Dehydrogenase Troponin I High Sens 22.7 H D B-Natriuretic Peptide Total Protein Albumin Procalcitonin Imaging Radiologist's Impressions: Impressions Chest X-Ray 08/20/20 10:10 IMPRESSION: New bilateral interstitial prominence suggestive of interstitial pneumonitis/infiltrate. Chest CTA 08/20/20 10:19 IMPRESSION: No evidence of. No evidence of aortic dissection or aneurysm. Findings suggestive chronic interstitial fibrosis. Large enhancing pulmonary nodule right lower lobe likely indicating to the inferior pulmonary artery. No major change. Para spiculated lesion seen in the right upper lobe on the previous exam is not seen at this time. There is no suggestion for acute consolidation. 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 Status: Acute This is an 79-year-old female with history of hypertension, dyslipidemia, diabetes, emphysema, recent diagnosis of COVID-19 who to the emergency department with worsening shortness of breath Acute respiratory failure with hypoxia pneumonia secondary to COVID-19 viral sepsis elevated inflammatory markers ferritin 453, LDH 320, CRP 12.84 -dexamethasone -supplemental o2 Diabetes with hyperglycemia random sugar 503 on multiple medications -was ozempic, Jardiance, repaglinide NF -hold metformin for increased LA -increase home dose of lantus from 8 to 20 -SSI, POC, ADA diet Hyperlipidemia Continue statin, zetia Hypertension Continue Andrae, beta-michelle Urinary incontinence Continue oxybutynin DVT prophylaxis-Lovenox Code status-full code This case was discussed with Dr. Suarez
[2020-08-20] MEDS: Dicyclomine HCl 10 MG CAPSULE PO (15:18)
[2020-08-20 15:21] LABS: C Reactive Protein 12.84 mg/dL (< or = 0.50)
--- NOTE | 2020-08-20 18:33 | PC.NURSE ---
SALAMANCA, INCREASED WORK OF BREATHING AND SAO2 DROPS TO 77% WHILE ON 15L NC DURING TRANSFER TO COMMODE. PT INSISTS ON USING COMMODE.
[2020-08-20] MEDS: 0.9 % Sodium Chloride Flush 3 ML SYRINGE IVFLUSH (18:38)
[2020-08-20 19:00] LABS: Glucose, Whole Blood 252 mg/dL (60-115)
--- NOTE | 2020-08-20 19:06 | PC.NURSE ---
pt to nuclear med in stretcher in NAD.
--- NOTE | 2020-08-20 19:31 | PC.NURSE ---
PT UPRIGHT IN BED WATCHING TV, RR EVEN UNLABORED, PT REPEATEDLY COUGHING, SPO2 WITH CONSISTENT PLETH WAVE 85%, RT CONTACTED, PT PLACED ON HFNC PER HOSPITALIST ORDER, PT TOLERATING WELL, SPO2 INCREASED TO 96% ATT.
--- NOTE | 2020-08-20 20:53 | PC.NURSE ---
PT SITTING UP IN STRETCHER IN NAD. PT REMAINS ON MONITOR WITH HR 75. PT IN NAD, RESPIRATIONS EASY, N/L. SKIN W/D. PT AWAITING FOR BED ASSIGNMENT. WILL CONTINUE TO MONITOR PT.
[2020-08-20 21:21] LABS: Glucose, Whole Blood 341 mg/dL (60-115)
[2020-08-20] MEDS: Enoxaparin Sodium 40 MG/0.4 ML SYRINGE SUBCUT (21:32)
[2020-08-20] MEDS: Atorvastatin Calcium 80 MG TABLET PO (21:33)
[2020-08-20] MEDS: Insulin Lispro 100 UNIT/ML 3 ML VIAL SUBCUT (21:33)
[2020-08-20] MEDS: Calcium + Vitamin D 250 MG TABLET 500 MG PO (21:33)
[2020-08-20] MEDS: Insulin Glargine,Hum.rec.anlog 100 UNIT/ML 10 ML VIAL 20 UNIT SUBCUT (21:34)
[2020-08-20 22:22] LABS: Troponin-I High Sensitivity 11.8 ng/L (<3.5-17.0)
[2020-08-21] VITALS (11 sets, daily range): BP systolic 122–129; BP diastolic 42–61; PULSE 67–102; RESP 14–30; TEMP 36.6–37.3; O2SAT 84–92
[2020-08-21] MEDS: 0.9 % Sodium Chloride Flush 3 ML SYRINGE IVFLUSH ×3 (02:09→17:53)
[2020-08-21 02:11] LABS: Troponin-I High Sensitivity 11.6 ng/L (<3.5-17.0)
--- NOTE | 2020-08-21 03:58 | PC.NURSE ---
PT HAD WITNESSED DESATURATION WITH GOOD PLETH TO 48%. PATIENT REPOSITIONED SATURATION ON HIGHFLOW REMAINS 68%. RT CONTACTED ED PROVIDER. PLAN OF CARE TO PLACE ON NRB ON HIGHFLOW. PATIETN SATS REMAIN IN HIGH 70S MENTATION IS FINE. HOSPITALIST CONTACTED. AWAITING HOSPITALIST ORALIA.
--- NOTE | 2020-08-21 04:35 | PC.RT ---
rn called stated PT sats decreased to the 40s at one point and now up to the 60s, upon arrival pt SATS in the 70s added a NRB sats now 82-89%. MD and Rn at bedside. inter. called to discuss code status.
--- NOTE | 2020-08-21 04:57 | PM.EVENT ---
Event Note Date of Service: 08/21/20 Event Note: Called to bedside for increasing oxygen requirements. Patient is now on high-flow as well as nonrebreather and oxygen sats are in the mid to upper 80's. She reports some chest pain with deep breathing but otherwise is not dyspneic. Some coughing noted-whitish phlegm produced. Exam: Dry inspiratory crackles at the lung bases, no exp wheezing. CV: regular rate, no murmur. Patient listed as full code. Had goals of care discussion at bedside with her using correspondence representative and also her healthcare proxy Katia who we reached by phone. Patient stated she did not want to be intubated at this very moment but when I asked whether she understood that if her breathing worsened and she did not want intubation that she would likely she did not answer. As such I do not think she fully understands the rammifications of being DNR/DNI so will continue full code. Her healthcare proxy also stated that she would defer to mom on this decision but would discuss with her siblings. Continue full code for now and she is on max support with high flow and NRB. Time spent in advanced care planning was 20 minutes.
--- NOTE | 2020-08-21 06:02 | PC.NURSE ---
late entry: 424: pt a and o x3. md at bedside refuses intubation. vs: Hr84, SPO2 88% on nrb and highflow. bp 110/46. Pt reports generalized face pain. maybe i'm better until morning. pt denies needs at this time. MD educated patient on potential . pt appears to understand and wishes to remain full code at this time. Parameter to call MD and RT if SPo2 drops to 80%. 0432: 3x calls placed to codie no answer. 0435: call to kenzie. Per kenzie phonumber for codie is [phone]. Contact made to codie, she is not HCP. Sister merrill is. phone number [phone]. 0445: call placed to merrill. full code at this time. but no wishes were expressly discussed. Sisters need to be involved.
--- NOTE | 2020-08-21 06:11 | PC.NURSE ---
permission given to give [facility] updates regarding condition and status
[2020-08-21 06:35] LABS: MANUAL DIFF FLAG NO
[2020-08-21 06:47] LABS: Basophils Percent Auto 0.2 % (0-2); Hemoglobin 12.3 g/dl (12.0-16.0); Imm Gran Abs Auto 0.04 X10*3/uL (0.00-0.03); Imm Gran Pct Auto 0.3 % (0.0-0.4); Lymphocytes Absolute Auto 1.1 X10*3/uL (1.2-4.9); Lymphocytes Percent Auto 9.7 % (20-40); Mean Corpuscular HGB Conc 32.4 g/dl (31.0-35.0); Mean Corpuscular Volume 80.3 fL (80-98); Mean Platelet Volume 9.7 fL (9.4-12.3); Monocytes Absolute Auto 0.5 X10*3/uL (0.1-1.2); Neutrophils Absolute Auto 9.8 X10*3/uL (2.0-8.3); Neutrophils Percent Auto 85.8 % (45-73); Platelet Count 246 X10*3/uL (160-400); Red Blood Count 4.73 X10*6/uL (4.20-5.50); Red Cell Distribution Width 12.3 % (11.0-16.0); White Blood Count 11.4 X10*3/uL (4.8-10.8)
--- NOTE | 2020-08-21 07:00 | PC.NURSE ---
PT ON THE BED RESENDIZ, HAD A MEDIUM WATERY BROWN STOOL, PT REPORTS LOWER ABD PAIN AT 4/10. PT SATTING AT 82-85 ON THE HIGH FLOW AT 100% AND NON-REBREATHER AT THE SAME TIME. NS ON THE MONITOR.
--- NOTE | 2020-08-21 07:17 | PM.EVENT ---
Event Note Date of Service: 08/20/20 Event Note: the patient was seen and evaluated with LIS Mejia. I agree with her note, assessment and plan with the following. In summary, an 79 years old lady with PMH of COPD, HTN, type 2 diabetes, CAD among others who presented to the hospital with with shortness of breath. She developed symptoms of upper respiratory tract infection around 9 days ago and was tested positive for COVID 6 days ago. Her oxygen level was noticed to be low with increased symptoms of shortness of breath and respiratory distress. In the emergency she was found to be hypoxic and a CTA showed interstitial fibrosis, nodules the with ground grass opacities suggestive of COVID infection. She was admitted for further treatment. On exam she looks respiratory distress with increased work of breathing, alert, bilateral chest wall movement, no accessory muscle usage.. Acute hypoxic respiratory failure COVID-19 pneumonia Start dexamethasone On high-dose requirement of nasal cannula at 12 L, Start high-flow To wean oxygen down as tolerated Rest of evaluations by PA note.
[2020-08-21 07:21] LABS: Anion Gap 15 (12-20); Blood Urea Nitrogen 19 mg/dL (9-16); Calcium 8.8 mg/dL (8.4-10.2); Carbon Dioxide 22 mmol/L (22-29); Chloride 109 mmol/L (96-108); Creatinine Clr Calc Pharmacy 59.8; Estimated Glomerular Filt Rate > 60; Glucose Random 125 mg/dL (60-115); Potassium 3.9 mmol/l (3.3-5.1); Sodium 142 mmol/L (135-145)
--- NOTE | 2020-08-21 08:39 | PC.NURSE ---
REPORT GIVEN TO ISO RN
--- NOTE | 2020-08-21 09:06 | MHC.CM.PN ---
pt is in iso unit, kyrgyz speaking c high flow o2. pt's daughter/primary contact - codie clay ph: [phone] called x 2 , both times line was busy. call was made in effort to ascertain home living situation of patient and preliminarily develope dc plan as patient is not picking up phone. will cont. to try to contact daughter for this information. dc plan uncertain at this time. cm to cont. to follow.
[2020-08-21] MEDS: Metoprolol Succinate ER 50 MG TAB.ER.24H PO (10:27)
[2020-08-21] MEDS: Calcium + Vitamin D 250 MG TABLET 500 MG PO ×2 (10:27→21:59)
[2020-08-21] MEDS: Loratadine 10 MG TABLET PO (10:27)
[2020-08-21] MEDS: Clopidogrel Bisulfate 75 MG TABLET PO (10:27)
[2020-08-21] MEDS: Ezetimibe 10 MG TABLET PO (10:28)
[2020-08-21 12:01] LABS: Glucose, Whole Blood 199 mg/dL (60-115)
--- NOTE | 2020-08-21 12:12 | HO.PM.IMPN ---
Subjective Subjective Date of Service: 08/21/20 Interval History: the patient was seen and evaluated this morning Laying in bed, for requiring high-flow oxygen and non-rebreather mask, looks fairly comfortable but her oxygen drops with any minimal exertion No reported fever, chills No reported other overnight events. Systemic review: No fever, chills complain of generalized weakness No chest pain, palpitation Increased dyspnea and shortness of breath with minimal exertion No abdominal pain, nausea or vomiting No urinary symptoms No any rash or wounds Physical Exam Vital Signs: Vital Signs: Last Vital Signs Temp 98 F 08/21/20 09:40 Pulse 69 08/21/20 10:28 Resp 14 08/21/20 11:34 BP 124/53 L 08/21/20 10:28 Pulse Ox 86 L 08/21/20 09:40 Body Mass Index 27.3 Constitutional : Alert, in mild respiratory distress Neck : Normal inspection, Supple Cardiovascular : RRR, no lower extremity edema Respiratory : Chest wall moving bilaterally, no accessory muscle usage, mild respiratory distress, on high-flow and non-rebreather mask Gastrointestinal: soft, lax, Normal bowel sounds, Non tender Skin : Warm/Dry, No rash Neurological : Alert , oriented, No focal deficit Objective Data Current Medications Generic Name Dose Route Start Last Admin Trade Name Freq PRN Reason Stop Dose Admin Acetaminophen 650 mg 08/20/20 16:18 Acetaminophen 325 Mg Tablet PO Q6H PRN Pain, Mild (Pain Scale 1-3) Albuterol Sulfate 2 puff 08/20/20 16:18 Albuterol Sulfate 90 Mcg 8 Gm Inhaler INHALE Q4H PRN Wheezing Atorvastatin Calcium 80 mg 08/20/20 21:00 08/20/20 21:33 Atorvastatin Calcium 80 Mg Tablet PO 80 mg BEDTIME LUCIE Administration Calcium Carbonate/Cholecalciferol 500 mg 08/20/20 21:00 08/21/20 10:27 Calcium + Vitamin D 250 Mg Tablet PO 500 mg BID LUCIE Administration Clopidogrel Bisulfate 75 mg 08/21/20 09:00 08/21/20 10:27 Clopidogrel Bisulfate 75 Mg Tablet PO 75 mg DAILY LUCIE Administration Dexamethasone Sodium Phosphate 6 mg 08/21/20 09:00 08/21/20 10:29 Dexamethasone Sod Phosphate/Pf 10 Mg/Ml Vial IVPUSH 6 mg DAILY LUCIE Administration Docusate Sodium 100 mg 08/20/20 16:18 Docusate Sodium 100 Mg Capsule PO DAILY PRN Constipation Ezetimibe 10 mg 08/21/20 09:00 08/21/20 10:28 Ezetimibe 10 Mg Tablet PO 10 mg DAILY [facility] Administration Enoxaparin Sodium 40 mg 08/20/20 18:00 08/20/20 21:32 Enoxaparin Sodium 40 Mg/0.4 Ml Syringe SUBCUT 40 mg Q24H [facility] Administration Ergocalciferol 1,250 mcg 09/10/20 09:00 Ergocalciferol (Vitamin D2) 1,250 Mcg Capsule PO Q30D [facility] Fluticasone Propionate 2 spray 08/20/20 16:18 Fluticasone Propionate Nasal 16 Gm [place] NOSTRIL-B DAILY PRN ashma Insulin Glargine 20 unit 08/20/20 21:00 08/20/20 21:34 Insulin Glargine,Hum.Rec.Anlog 100 Unit/Ml 10 Ml Vial SUBCUT 20 unit BEDTIME [facility] Administration Insulin Human Lispro 0 unit 08/20/20 16:30 08/21/20 07:37 Insulin Lispro 100 Unit/Ml 3 Ml Vial SUBCUT Not Given QIDACHS [facility] Protocol Lisinopril 40 mg 08/21/20 09:00 08/21/20 10:28 Lisinopril 40 Mg Tablet PO 40 mg DAILY [facility] Administration Loratadine 10 mg 08/21/20 09:00 08/21/20 10:27 Loratadine 10 Mg Tablet PO 10 mg DAILY [facility] Administration Metoprolol Succinate 50 mg 08/21/20 09:00 08/21/20 10:27 Metoprolol Succinate Er 50 Mg Tab.Er.24h PO 50 mg DAILY [facility] Administration Protocol Ondansetron HCl 4 mg 08/20/20 16:18 Ondansetron Hcl 4 Mg/2 Ml Vial IVPUSH Q8H PRN Nausea and Vomiting Oxybutynin Chloride 5 mg 08/20/20 21:00 08/20/20 21:00 Oxybutynin Chloride Er 5 Mg Tab.Er.24 PO 5 mg BEDTIME [facility] Administration Pharmacy Consult 1 each 08/20/20 10:14 Consult Rx Perform Med Rec MISCELLANE ONCE PRN Consult order Senna 8.6 mg 08/20/20 16:18 Sennosides 8.6 Mg Tablet PO BEDTIME PRN constipation Sodium Chloride 3 ml 08/20/20 16:18 08/21/20 09:38 0.9 % Sodium Chloride Flush 3 Ml Syringe IVFLUSH 3 ml QSHIFT LUCIE Administration Tramadol HCl 50 mg 08/20/20 16:18 Tramadol Hcl 50 Mg Tablet PO TID PRN Pain Trazodone HCl 50 mg 08/20/20 16:18 Trazodone Hcl 50 Mg Tablet PO BEDTIME PRN Insomnia Labs CBC & Chem 7: 08/21/20 06:28 08/21/20 06:28 Assessment and Plan (1) Acute respiratory failure due to COVID-19: Status: Acute (2) T2DM (type 2 diabetes mellitus): Status: Acute Assessment and Plan: This is an 79-year-old female with history of hypertension, dyslipidemia, diabetes, emphysema, recent diagnosis of COVID-19 who to the emergency department with worsening shortness of breath Acute respiratory failure with hypoxia pneumonia secondary to COVID-19 Increased oxygen requirement continue high-flow, non-rebreather, Consider [facility] aware of the patient Continue IV dexamethasone Wean oxygen down as tolerated Diabetes with hyperglycemia Sugar better controlled today on multiple medications at home ozempic, Jardiance, repaglinide NF increase home dose of lantus from 8 to 20 SSI, POC, ADA diet Hyperlipidemia Continue statin, zetia Hypertension Continue Andrae, beta-michelle Urinary incontinence Continue oxybutynin DVT prophylaxis Lovenox Code status full code
[2020-08-21] MEDS: Insulin Lispro 100 UNIT/ML 3 ML VIAL SUBCUT ×3 (12:47→22:00)
[2020-08-21 15:06] LABS: Glucose, Whole Blood 122 mg/dL (60-115)
[2020-08-21 15:40] LABS: Glucose, Whole Blood 192 mg/dL (60-115)
[2020-08-21 17:01] LABS: Pt Ventilation O2% 100%
[2020-08-21 17:10] LABS: ABG PCO2 48 mmHg (32-45); pH ABG 7.43 (7.35-7.45)
[2020-08-21 17:11] LABS: HCO3 ABG 32 mmol/L (22-26)
[2020-08-21 17:13] LABS: PO2 ABG 45 mmHg (83-108)
[2020-08-21] MEDS: Enoxaparin Sodium 40 MG/0.4 ML SYRINGE SUBCUT (17:53)
[2020-08-21 20:32] LABS: Glucose, Whole Blood 344 mg/dL (60-115)
[2020-08-21] MEDS: Atorvastatin Calcium 80 MG TABLET PO (21:59)
[2020-08-21] MEDS: Insulin Glargine,Hum.rec.anlog 100 UNIT/ML 10 ML VIAL 20 UNIT SUBCUT (22:00)
[2020-08-22] VITALS (23 sets, daily range): BP systolic 96–165; BP diastolic 40–65; PULSE 52–91; RESP 14–35; TEMP 36.2–36.6; O2SAT 87–98
[2020-08-22] MEDS: 0.9 % Sodium Chloride Flush 3 ML SYRINGE IVFLUSH ×3 (00:34→17:15)
[2020-08-22 07:44] LABS: Glucose, Whole Blood 94 mg/dL (60-115)
[2020-08-22 07:59] LABS: Hematocrit 39.1 % (37-47); Hemoglobin 12.6 g/dl (12.0-16.0); Mean Corpuscular HGB Conc 32.2 g/dl (31.0-35.0); Mean Corpuscular Hemoglobin 26.4 pg (27.0-33.0); Mean Platelet Volume 9.4 fL (9.4-12.3); Platelet Count 280 X10*3/uL (160-400); Red Blood Count 4.77 X10*6/uL (4.20-5.50); Red Cell Distribution Width 12.6 % (11.0-16.0); White Blood Count 12.7 X10*3/uL (4.8-10.8)
[2020-08-22 08:25] LABS: Anion Gap 13 (12-20); Blood Urea Nitrogen 17 mg/dL (9-16); Calcium 8.7 mg/dL (8.4-10.2); Carbon Dioxide 26 mmol/L (22-29); Chloride 106 mmol/L (96-108); Estimated Glomerular Filt Rate > 60; Glucose Random 75 mg/dL (60-115); Potassium 4.1 mmol/l (3.3-5.1); Sodium 141 mmol/L (135-145)
--- NOTE | 2020-08-22 09:23 | PC.NURSE ---
pt has had oxygen saturations of 82 to 83%. She has become anxious and removes all oxygen, then has saturations of 64-70%. She is difficult to reassure. Sitter at bedside, oxygen saturations not improving. Pt has respiratory rate 38, also has been coughing bloody sputum. Repositioned pt, she has taken deep breaths but not improving.
--- NOTE | 2020-08-22 09:26 | PC.NURSE ---
rapid response called, MD and director wholesale to bedside, respiratory to bedside. pt to be placed on CPAP and transferred to ICU when bed available
--- NOTE | 2020-08-22 09:41 | HO.PM.IMPN ---
Subjective Subjective Date of Service: 08/22/20 Interval History: Patient was seen this morning upon rapid response called. More lethargic respiratory distress. Requiring high-flow oxygen, non-rebreather mask and surgeries in dropping to 70s. Patient was not able to verbalize her concerns. Physical Exam Vital Signs: Vital Signs: Last Vital Signs Temp 97.2 F 08/22/20 07:39 Pulse 71 08/22/20 07:39 Resp 22 H 08/22/20 07:39 BP 136/63 08/22/20 07:39 Pulse Ox 93 08/22/20 07:39 Body Mass Index 27.3 Const: Other: Patient in respiratory distress, on oxygen requirement tachypneic, regular rhythm No JVD or Edema No rash Alert, interactive but very anxious Resp: Effort & Inspection: tachypneic Objective Data Current Medications Generic Name Dose Route Start Last Admin Trade Name Freq PRN Reason Stop Dose Admin Acetaminophen 650 mg 08/20/20 16:18 Acetaminophen 325 Mg Tablet PO Q6H PRN Pain, Mild (Pain Scale 1-3) Albuterol Sulfate 2 puff 08/20/20 16:18 Albuterol Sulfate 90 Mcg 8 Gm Inhaler INHALE Q4H PRN Wheezing Atorvastatin Calcium 80 mg 08/20/20 21:00 08/21/20 21:59 Atorvastatin Calcium 80 Mg Tablet PO 80 mg BEDTIME LUCIE Administration Calcium Carbonate/Cholecalciferol 500 mg 08/20/20 21:00 08/22/20 09:30 Calcium + Vitamin D 250 Mg Tablet PO Not Given BID LUCIE Clopidogrel Bisulfate 75 mg 08/21/20 09:00 08/22/20 09:30 Clopidogrel Bisulfate 75 Mg Tablet PO Not Given DAILY LUCIE Dexamethasone Sodium Phosphate 6 mg 08/21/20 09:00 08/22/20 09:36 Dexamethasone Sod Phosphate/Pf 10 Mg/Ml Vial IVPUSH 6 mg DAILY LUCIE Administration Docusate Sodium 100 mg 08/20/20 16:18 Docusate Sodium 100 Mg Capsule PO DAILY PRN Constipation Ezetimibe 10 mg 08/21/20 09:00 08/22/20 09:30 Ezetimibe 10 Mg Tablet PO Not Given DAILY LUCIE Enoxaparin Sodium 40 mg 08/20/20 18:00 08/21/20 17:53 Enoxaparin Sodium 40 Mg/0.4 Ml Syringe SUBCUT 40 mg Q24H LUCIE Administration Ergocalciferol 1,250 mcg 09/10/20 09:00 Ergocalciferol (Vitamin D2) 1,250 Mcg Capsule PO Q30D [facility] Fluticasone Propionate 2 spray 08/20/20 16:18 Fluticasone Propionate Nasal 16 Gm [place] NOSTRIL-B DAILY PRN ashma Insulin Glargine 20 unit 08/20/20 21:00 08/21/20 22:00 Insulin Glargine,Hum.Rec.Anlog 100 Unit/Ml 10 Ml Vial SUBCUT 20 unit BEDTIME [facility] Administration Insulin Human Lispro 0 unit 08/20/20 16:30 08/22/20 08:37 Insulin Lispro 100 Unit/Ml 3 Ml Vial SUBCUT Not Given QIDACHS [facility] Protocol Lisinopril 40 mg 08/21/20 09:00 08/22/20 09:30 Lisinopril 40 Mg Tablet PO Not Given DAILY [facility] Loratadine 10 mg 08/21/20 09:00 08/22/20 09:31 Loratadine 10 Mg Tablet PO Not Given DAILY [facility] Metoprolol Succinate 50 mg 08/21/20 09:00 08/22/20 09:31 Metoprolol Succinate Er 50 Mg Tab.Er.24h PO Not Given DAILY [facility] Protocol Ondansetron HCl 4 mg 08/20/20 16:18 Ondansetron Hcl 4 Mg/2 Ml Vial IVPUSH Q8H PRN Nausea and Vomiting Oxybutynin Chloride 5 mg 08/20/20 21:00 08/21/20 21:59 Oxybutynin Chloride Er 5 Mg Tab.Er.24 PO 5 mg BEDTIME [facility] Administration Pharmacy Consult 1 each 08/20/20 10:14 Consult Rx Perform Med Rec MISCELLANE ONCE PRN Consult order Senna 8.6 mg 08/20/20 16:18 Sennosides 8.6 Mg Tablet PO BEDTIME PRN constipation Sodium Chloride 3 ml 08/20/20 16:18 08/22/20 09:30 0.9 % Sodium Chloride Flush 3 Ml Syringe IVFLUSH 3 ml QSHIFT [facility] Administration Tramadol HCl 50 mg 08/20/20 16:18 Tramadol Hcl 50 Mg Tablet PO TID PRN Pain Trazodone HCl 50 mg 08/20/20 16:18 Trazodone Hcl 50 Mg Tablet PO BEDTIME PRN Insomnia Labs CBC & Chem 7: 08/22/20 07:41 08/22/20 07:41 Microbiology Microbiology Results: Microbiology 08/20/20 10:59 Blood - Venous Blood Culture - Preliminary No growth after 24 hours. 08/20/20 10:55 Blood - Venous Blood Culture - Preliminary No growth after 24 hours. Assessment and Plan (1) Acute respiratory failure due to COVID-19: Status: Acute (2) T2DM (type 2 diabetes mellitus): Status: Acute Assessment and Plan: This is an 79-year-old female with history of hypertension, dyslipidemia, diabetes, emphysema, recent diagnosis of COVID-19 who to the emergency department with worsening shortness of breath Acute respiratory failure with hypoxia pneumonia secondary to COVID-19 Continue to desat Increased oxygen requirement to max high-flow, non-rebreather, Continue IV dexamethasone Transfer to ICU for CPAP pending possible intubation Diabetes with hyperglycemia Sugar better controlled today on multiple medications at home ozempic, Jardiance, repaglinide NF increase home dose of lantus from 8 to 20 SSI, POC, ADA diet Hyperlipidemia Continue statin, zetia Hypertension Continue Andrae, beta-michelle Urinary incontinence Continue oxybutynin DVT prophylaxis Lovenox Code status full code
[2020-08-22 11:02] LABS: Glucose, Whole Blood 79 mg/dL (60-115)
--- NOTE | 2020-08-22 12:58 | PM.CCPN ---
Subjective Subjective Date of Service: 08/22/20 Interval History: 79-year-old lady with underlying history of asthma/COPD, hypertension, diabetes mellitus COVID positive on 08/14/2020 admitted on 08/21/2020 with progressive dyspnea initially able to maintain normoxemia on high-flow nasal cannula. Treated with dexamethasone. Hospital course complicated by worsening hypoxemia requiring initiation of CPAP support on 08/22/2020 and transfer to intensive care. Physical Exam Vital Signs: Vital Signs: Last Vital Signs Temp 97.2 F 08/22/20 07:39 Pulse 64 08/22/20 11:22 Resp 35 H 08/22/20 11:28 BP 165/44 H 08/22/20 11:22 Pulse Ox 97 08/22/20 11:22 Body Mass Index 27.3 Const: General: no acute distress, alert and awake Eyes: Sclerae: sclerae normal EOM: EOMs intact bilaterally Neck: Neck: Yes no lymphadenopathy, Yes trachea midline and Yes supple Resp: Effort & Inspection: normal respiratory effort and no respiratory distress Auscultation: crackles (Diffuse bilateral) Cardio: Rate: regular rate Rhythm: regular rhythm Heart sounds: no gallops, no murmurs and no rubs GI: Palpation (GI): Soft to palpation and Other GI palpation findings present ( Nontender) Auscultation: normal bowel sounds Extrem: General: No clubbing, No cyanosis and Yes edema (Trace bilateral) Objective Data Labs CBC & Chem 7: 08/22/20 07:41 08/22/20 07:41 Labs: Laboratory Results - last 24 hr 08/21/20 08/21/20 08/21/20 07:34 15:34 16:50 WBC RBC Hgb Hct MCV MCH MCHC RDW Plt Count MPV Absolute Nucleated RBC Nucleated RBC % (auto) ABG pH 7.43 ABG pCO2 48 H ABG pO2 45 L* ABG HCO3 32 H ABG O2 Saturation 75.0 ABG Base Excess 7.0 Oxygen Given 100% Sodium Potassium Chloride Carbon Dioxide Anion Gap BUN Creatinine Estim Creat Clear Calc Estimated GFR POC Glucose 122 H 192 H Random Glucose Calcium 08/21/20 08/22/20 08/22/20 20:30 07:41 07:41 WBC 12.7 H RBC 4.77 Hgb 12.6 Hct 39.1 MCV 82.0 MCH 26.4 L MCHC 32.2 RDW 12.6 Plt Count 280 MPV 9.4 Absolute Nucleated RBC 0.000 Nucleated RBC % (auto) 0.0 ABG pH ABG pCO2 ABG pO2 ABG HCO3 ABG O2 Saturation ABG Base Excess Oxygen Given Sodium 141 Potassium 4.1 Chloride 106 Carbon Dioxide 26 Anion Gap 13 BUN 17 H Creatinine 0.59 Estim Creat Clear Calc 66.0 Estimated GFR > 60 POC Glucose 344 H Random Glucose 75 D Calcium 8.7 08/22/20 08/22/20 07:41 10:58 WBC RBC Hgb Hct MCV MCH MCHC RDW Plt Count MPV Absolute Nucleated RBC Nucleated RBC % (auto) ABG pH ABG pCO2 ABG pO2 ABG HCO3 ABG O2 Saturation ABG Base Excess Oxygen Given Sodium Potassium Chloride Carbon Dioxide Anion Gap BUN Creatinine Estim Creat Clear Calc Estimated GFR POC Glucose 94 79 Random Glucose Calcium Microbiology Microbiology Results: Microbiology 08/20/20 10:59 Blood - Venous Blood Culture - Preliminary No growth after 24 hours. 08/20/20 10:55 Blood - Venous Blood Culture - Preliminary No growth after 24 hours. Progress Note: A&P Assessment and plan (1) Acute respiratory failure due to COVID-19: Status: Acute Assessment and Plan: Assessment: 79-year-old lady with underlying history of asthma/COPD, hypertension, and diabetes mellitus COVID positive on 08/14/2020, admitted on 08/21/2020 with acute hypoxic respiratory failure secondary to COVID-19 ARDS with progressive hypoxemia requiring initiation of CPAP support and transfer to intensive care. Plan: Neuro: No acute issues. Cardiac: No acute issues. Underlying history of hypertension. Pulmonary: Acute hypoxic respiratory failure secondary to COVID-19 ARDS. Continue to titrate off noninvasive positive pressure ventilatory support as tolerated. Renal: No acute issues. Endo: No acute issues. Underlying diabetes mellitus. GI: No acute issues. ID: COVID-19 ARDS on continue with dexamethasone. Heme/Onc: No acute issues. Psych: No acute issues. Miscellaneous: No acute issues. Prophylaxis: Lovenox Diet: Diabetic Critical care time spent: 45 minutes (2) Asthma: Status: Acute (3) Type 2 diabetes mellitus with unspecified complications: Status: Acute (4) Essential hypertension: Status: Acute (5) Acute respiratory failure with hypoxia: Status: Acute Time Spent With Patient Total time spent with greater than 50% in coordination of care (as documented) at patient's floor/unit and/or counseling patient:: 0 Critical Care Time 45
[2020-08-22 16:52] LABS: Glucose, Whole Blood 89 mg/dL (60-115)
--- NOTE | 2020-08-22 17:37 | PC.NURSE ---
Patient transferred from Iso unit to ICU for increased oxygen demands and increased work of breathing. Patient placed on CPAP and transferred to ICU. Patient had decreased agitation and decreased work of breathing on cpap. Remains NPO while on Cpap. Vitals stable. Family updated. Will continue to monitor.
[2020-08-22] MEDS: Enoxaparin Sodium 40 MG/0.4 ML SYRINGE SUBCUT (18:01)
[2020-08-22 20:57] LABS: Glucose, Whole Blood 100 mg/dL (60-115)
[2020-08-22] MEDS: Dextrose 5 % 1,000 ML 50 ML IVCONT (22:08)
[2020-08-23] VITALS (28 sets, daily range): BP systolic 92–136; BP diastolic 36–84; PULSE 54–102; RESP 14–30; TEMP 36.1–36.6; O2SAT 86–97
[2020-08-23 00:29] LABS: Glucose, Whole Blood 111 mg/dL (60-115)
[2020-08-23 05:28] LABS: Base Excess VBG 4.8 mmol/L; HCO3 VBG 29 mmol/L; PCO2 VBG 43 mmHg; PO2 VBG 142 mmHg; pH VBG 7.43 (7.32-7.43)
[2020-08-23 05:35] LABS: MANUAL DIFF FLAG NO
[2020-08-23 05:37] LABS: Basophils Percent Auto 0.1 % (0-2); Hematocrit 37.6 % (37-47); Hemoglobin 12.1 g/dl (12.0-16.0); Imm Gran Abs Auto 0.05 X10*3/uL (0.00-0.03); Imm Gran Pct Auto 0.5 % (0.0-0.4); Lymphocytes Absolute Auto 1.2 X10*3/uL (1.2-4.9); Lymphocytes Percent Auto 10.8 % (20-40); Mean Corpuscular HGB Conc 32.2 g/dl (31.0-35.0); Mean Corpuscular Hemoglobin 26.3 pg (27.0-33.0); Mean Corpuscular Volume 81.7 fL (80-98); Mean Platelet Volume 9.2 fL (9.4-12.3); Monocytes Absolute Auto 0.4 X10*3/uL (0.1-1.2); Neutrophils Absolute Auto 9.4 X10*3/uL (2.0-8.3); Neutrophils Percent Auto 84.6 % (45-73); Platelet Count 288 X10*3/uL (160-400); Red Cell Distribution Width 12.5 % (11.0-16.0); White Blood Count 11.1 X10*3/uL (4.8-10.8)
--- NOTE | 2020-08-23 06:08 | PC.NURSE ---
ASSUMED CARE OF PT AT 1900. PT SLEPT MOST OF THE NIGHT WHILE ON CPAP FACEMASK 12/80% O2. SHE IS AROUSABLE AND FOLLOWS COMMADS/PROMPTS MUCH SHE CAN UNDERSTAND WITH HER LIMITED [place]DA. SHE SPEAKS SOME K[place]YAR[place]ANDA BUT IS MOSTLY LATVIAN SPEAKING. FIO2 WAS DECREASED TO 70% O2 SATS HAVE BEEN IN THE MID 90'S RANGE. POC AT HS WAS 100. RETAIL ACCOUNT EXECUTIVE [place] AWARE AND IV OF D5W AT 50 ML/HR ORDERED. POC REPEATED AT MIDNIGHT WAS 111. PT NPO WHILE ON CPAP. IN BED WITH HOB UP 30-45 DEGREES. NO ACUTE RESP DISTRESS. PT CALM AND COOPERATIVE. AVASYS CAMERA IN ROOM. BED ALARM ON. PT OFFERED BEDPAN AND VOIDED SMALL AMOUNTS, 100-200 ML DARK [place] URINE ON BEDPAN. ALSO HAS BEEN INCONTINENT OF URINE. SMITA CARE GIVEN AND PT REPOS. SKIN IS INTACT. VITAL SIGNS STABLE. MONITOR SHOWS SB, 50'S-60'S, RARE PVC NOTED.
[2020-08-23 06:23] LABS: Alanine Aminotransferase 26 U/L (0-31); Albumin Level 3.2 g/dL (3.5-5.0); Alkaline Phosphatase 108 U/L (39-117); Anion Gap 16 (12-20); Aspartate Amino Transferase 40 U/L (5-31); Blood Urea Nitrogen 23 mg/dL (9-16); Calcium 8.2 mg/dL (8.4-10.2); Carbon Dioxide 25 mmol/L (22-29); Chloride 106 mmol/L (96-108); Creatinine Clr Calc Pharmacy 64.9; Estimated Glomerular Filt Rate > 60; Glucose Random 114 mg/dL (60-115); Magnesium 2.1 mg/dL (1.6-2.6); Phosphorus 3.7 mg/dL (2.7-4.5); Potassium 4.1 mmol/l (3.3-5.1); Sodium 143 mmol/L (135-145); Total Protein 5.9 g/dL (6.5-8.0)
--- NOTE | 2020-08-23 07:24 | P.CDIC_ITS ---
CDI Concurrent Query Service Date: 08/23/20 Documentation Clarification: Please clarify if you are treating a proba ble/suspected/likely or confirmed: Consistency and clarity of documentation within the medial record: Viral Sepsis due to Covid-19/ARDS with acute hypoxic respiratory failure, POA Covid-19/ARDS w acute hypoxic respiratory failure Please specify if known or other Provider Response: Other Other Diagnosis: Viral Sepsis due to Covid-19/ARDS with acute hypoxic respiratory failure, POA PLEASE DO NOT DELETE/MODIFY EXISTING CONTENT Additional information is needed in order to code to the highest accuracy and appropriate Severity of Illness (SOI). Please clarify the information noted below in your progress notes and discharge summary. Risk Factors/Clinical Indicators/Treatments ED: hypoxic, tachycardic, tachypneic, using accessory muscles, covid positive. Impression: acute respiratory failure due to Covid-19, viral sepsis. H&P: 08/20 - Acute hypoxic respiratory failure pna 2nd to Covid-19 Viral Sepsis. Dexamethasone, oxygen w RR 26 LA 2.3 WBC 12.7 ICU admit CDS: Lilly Schwab CCS, [facility]IS Contact Number: [phone] Please Review the information above and exercise your independent professional judgment in responding to the query. If you concur, pleas document in the PROGRESS NOTES and DISCHARGE SUMMARY. If you do not agree with the query, please document in the query above. THIS QUERY IS PART OF THE PERMANENT MEDICAL RECORD
[2020-08-23 07:33] LABS: Glucose, Whole Blood 125 mg/dL (60-115)
[2020-08-23] MEDS: 0.9 % Sodium Chloride Flush 3 ML SYRINGE IVFLUSH ×2 (10:40→17:27)
[2020-08-23] MEDS: Clopidogrel Bisulfate 75 MG TABLET PO (10:40)
[2020-08-23 11:17] LABS: Glucose, Whole Blood 118 mg/dL (60-115)
--- NOTE | 2020-08-23 14:57 | P.PNCC_ITS ---
Subjective Subjective Date of Service: 08/23/20 Interval History: 79-year-old lady with underlying history of asthma/COPD, hypertension, diabetes mellitus COVID positive on 08/14/2020 admitted on 08/21/2020 with progressive dyspnea initially able to maintain normoxemia on high-flow nasal cannula. Treated with dexamethasone. Hospital course complicated by worsening hypoxemia requiring initiation of CPAP support on 08/22/2020 and transfer to intensive care. No events overnight. Continues to require CPAP support. Tolerated being on high-flow nasal cannula for several hours today. Physical Exam Vital Signs: Vital Signs: Last Vital Signs Temp 96.9 F 08/23/20 12:00 Pulse 78 08/23/20 14:00 Resp 30 H 08/23/20 14:00 BP 126/52 L 08/23/20 14:00 Pulse Ox 89 L 08/23/20 14:00 Body Mass Index 27.3 Const: General: no acute distress, alert and awake Eyes: Sclerae: sclerae normal EOM: EOMs intact bilaterally Neck: Neck: Yes no lymphadenopathy, Yes trachea midline and Yes supple Resp: Effort & Inspection: normal respiratory effort (On CPAP) and no respiratory distress Auscultation: crackles (Diffuse bilateral) Cardio: Rate: regular rate Rhythm: regular rhythm Heart sounds: no g allops, no murmurs and no rubs GI: Palpation (GI): Soft to palpation and Other GI palpation findings present ( Nontender) Auscultation: normal bowel sounds Extrem: General: No clubbing, No cyanosis and Yes edema (Trace bilateral) Objective Data Labs CBC & Chem 7: 08/23/20 05:17 08/23/20 05:17 Labs: Laboratory Results - last 24 hr 08/22/20 08/22/20 08/23/20 16:49 20:39 00:12 WBC RBC Hgb Hct MCV MCH MCHC RDW Plt Count MPV Immature Gran % (Auto) Neut % (Auto) Lymph % (Auto) [place] % (Auto) Eos % (Auto) Baso % (Auto) Lymph # (Auto) [place] # (Auto) Eos # (Auto) Baso # (Auto) Abs Immat Gran (auto) Absolute Neuts (auto) Absolute Nucleated RBC Nucleated RBC % (auto) VBG pH VBG pCO2 VBG pO2 VBG HCO3 VBG O2 Saturation VBG Base Excess Sodium Potassium Chloride Carbon Dioxide Anion Gap BUN Creatinine Estim Creat Clear Calc Estimated GFR POC Glucose 89 100 111 Random Glucose Calcium Phosphorus Magnesium Total Bilirubin AST ALT Alkaline Phosphatase Total Protein Albumin 08/23/20 08/23/20 08/23/20 05:17 05:17 05:17 WBC 11.1 H RBC 4.60 Hgb 12.1 Hct 37.6 MCV 81.7 MCH 26.3 L MCHC 32.2 RDW 12.5 Plt Count 288 MPV 9.2 L Immature Gran % (Auto) 0.5 H Neut % (Auto) 84.6 H Lymph % (Auto) 10.8 L [place] % (Auto) 4.0 Eos % (Auto) 0.0 Baso % (Auto) 0.1 Lymph # (Auto) 1.2 [place] # (Auto) 0.4 Eos # (Auto) 0.0 Baso # (Auto) 0.0 Abs Immat Gran (auto) 0.05 H Absolute Neuts (auto) 9.4 H Absolute Nucleated RBC 0.000 Nucleated RBC % (auto) 0.0 VBG pH 7.43 VBG pCO2 43 VBG pO2 142 VBG HCO3 29 VBG O2 Saturation 99.0 VBG Base Excess 4.8 Sodium 143 Potassium 4.1 Chloride 106 Carbon Dioxide 25 Anion Gap 16 BUN 23 H Creatinine 0.60 Estim Creat Clear Calc 64.9 Estimated GFR > 60 POC Glucose Random Glucose 114 D Calcium 8.2 L Phosphorus 3.7 Magnesium 2.1 Total Bilirubin 1.0 AST 40 H ALT 26 Alkaline Phosphatase 108 Total Protein 5.9 L Albumin 3.2 L 08/23/20 08/23/20 07:27 11:10 WBC RBC Hgb Hct MCV MCH MCHC RDW Plt Count MPV Immature Gran % (Auto) Neut % (Auto) Lymph % (Auto) [place] % (Auto) Eos % (Auto) Baso % (Auto) Lymph # (Auto) [place] # (Auto) Eos # (Auto) Baso # (Auto) Abs Immat Gran (auto) Absolute Neuts (auto) Absolute Nucleated RBC Nucleated RBC % (auto) VBG pH VBG pCO2 VBG pO2 VBG HCO3 VBG O2 Saturation VBG Base Excess Sodium Potassium Chloride Carbon Dioxide Anion Gap BUN Creatinine Estim Creat Clear Calc Estimated GFR POC Glucose 125 H 118 H Random Glucose Calcium Phosphorus Magnesium Total Bilirubin AST ALT Alkaline Phosphatase Total Protein Albumin Microbiology Microbiology Results: Microbiology 08/20/20 10:59 Blood - Venous Blood Culture - Preliminary No growth after 48 hours. 08/20/20 10:55 Blood - Venous Blood Culture - Preliminary No growth after 48 hours. Progress Note: A&P Assessment and plan (1) Acute respiratory failure with hypoxia: Status: Acute Assessment and Plan: Assessment: 79-year-old lady with underlying history of asthma/COPD, hypertension, and diabetes mellitus COVID positive on 08/14/2020, admitted on 08/21/2020 with acute hypoxic respiratory failure secondary to COVID-19 ARDS with progressive hypoxemia requiring initiation of CPAP support and transfer to intensive care. Plan: Neuro: No acute issues. Cardiac: No acute issues. Underlying history of hypertension and CAD. Pulmonary: Acute hypoxic respiratory failure secondary to COVID-19 ARDS. Continue to titrate off noninvasive positive pressure ventilatory support as tolerated. Renal: No acute issues. Endo: No acute issues. Underlying diabetes mellitus. GI: No acute issues. ID: COVID-19 ARDS on continue with dexamethasone. Heme/Onc: No acute issues. Psych: No acute issues. Miscellaneous: No acute issues. Prophylaxis: Lovenox Diet: Diabetic Critical care time spent: 45 minutes (2) COVID-19: Status: Acute (3) Acute respiratory failure due to COVID-19: Status: Acute (4) T2DM (type 2 diabetes mellitus): Status: Acute (5) HTN (hypertension): Status: Acute (6) Atherosclerotic cardiovascular disease: Status: Acute Time Spent With Patient Total time spent with greater than 50% in coordination of care (as documented) at patient's floor/unit and/or counseling patient:: 0 Critical Care Time 45
[2020-08-23] MEDS: Enoxaparin Sodium 40 MG/0.4 ML SYRINGE SUBCUT (17:27)
[2020-08-23] MEDS: Insulin Lispro 100 UNIT/ML 3 ML VIAL SUBCUT ×2 (17:36→23:16)
--- NOTE | 2020-08-23 18:14 | PC.NURSE ---
Patient transitioned from CPAP to high [place] and nonrebreather. Patient has been eating and drinking and able to take PO meds. Family updated and patient spoke with family over the phone. Vitals stable. Will continue to monitor.
[2020-08-23 18:23] LABS: Glucose, Whole Blood 311 mg/dL (60-115)
[2020-08-23 23:01] LABS: Glucose, Whole Blood 211 mg/dL (60-115)
[2020-08-23] MEDS: Insulin Glargine,Hum.rec.anlog 100 UNIT/ML 10 ML VIAL 20 UNIT SUBCUT (23:15)
[2020-08-24] VITALS (31 sets, daily range): BP systolic 110–177; BP diastolic 53–69; PULSE 64–97; RESP 20–31; TEMP 36.2–37.2; O2SAT 85–99
[2020-08-24] MEDS: 0.9 % Sodium Chloride Flush 3 ML SYRINGE IVFLUSH ×3 (01:48→15:38)
[2020-08-24 05:29] LABS: MANUAL DIFF FLAG NO
[2020-08-24 05:31] LABS: Basophils Percent Auto 0.2 % (0-2); Eosinophils Percent Auto 0.2 % (0-4); Hematocrit 40.1 % (37-47); Hemoglobin 12.9 g/dl (12.0-16.0); Imm Gran Pct Auto 0.8 % (0.0-0.4); Lymphocytes Absolute Auto 1.6 X10*3/uL (1.2-4.9); Lymphocytes Percent Auto 12.5 % (20-40); Mean Corpuscular HGB Conc 32.2 g/dl (31.0-35.0); Mean Corpuscular Hemoglobin 26.1 pg (27.0-33.0); Mean Corpuscular Volume 81.2 fL (80-98); Monocytes Absolute Auto 0.3 X10*3/uL (0.1-1.2); Monocytes Percent Auto 2.1 % (2-11); Neutrophils Absolute Auto 10.6 X10*3/uL (2.0-8.3); Neutrophils Percent Auto 84.2 % (45-73); Platelet Count 294 X10*3/uL (160-400); Red Blood Count 4.94 X10*6/uL (4.20-5.50); Red Cell Distribution Width 12.2 % (11.0-16.0); White Blood Count 12.6 X10*3/uL (4.8-10.8)
[2020-08-24 05:33] LABS: Base Excess VBG 14.8 mmol/L; HCO3 VBG 42 mmol/L; PCO2 VBG 64 mmHg; PO2 VBG 59 mmHg; pH VBG 7.42 (7.32-7.43)
--- NOTE | 2020-08-24 05:54 | PC.NURSE ---
1 assist to commode prior to being placed on cpap for the night. gait is weak. pt is moroccan speaking. with the assistance of screenplay writer ankita alvarez as interpretter, pt presents with clear sensorium. she follows commands. complexion patricio. trace pedal and ankle edema. placed on cpap 10 cm with fio2 100%. monet with minimal exertion. sao2 93-95%. breath sounds coarse with scattered exp rhonchi. ecg displays sr. with activity hr will increase 110-120 bpm. hemodynamically stable. abdomen round/semisoft. pt passed a large fromed brown stool. voiding conc shell urine.
[2020-08-24 06:18] LABS: Albumin Level 3.3 g/dL (3.5-5.0); Anion Gap 15 (12-20); Blood Urea Nitrogen 18 mg/dL (9-16); Calcium 8.7 mg/dL (8.4-10.2); Carbon Dioxide 28 mmol/L (22-29); Chloride 104 mmol/L (96-108); Creatinine Clr Calc Pharmacy 68.3; Estimated Glomerular Filt Rate > 60; Glucose Random 53 mg/dL (60-115); Phosphorus 2.4 mg/dL (2.7-4.5); Potassium 3.9 mmol/l (3.3-5.1); Sodium 143 mmol/L (135-145)
[2020-08-24 07:18] LABS: Glucose, Whole Blood 168 mg/dL (60-115)
[2020-08-24] MEDS: Insulin Lispro 100 UNIT/ML 3 ML VIAL SUBCUT (08:29)
[2020-08-24] MEDS: Clopidogrel Bisulfate 75 MG TABLET PO (08:30)
[2020-08-24] MEDS: Potassium Phosphate 30 MMOL in 0.9 % Sodium Chloride 500 ML 85 MMOL IV (09:32)
--- NOTE | 2020-08-24 10:33 | P.PNCC_ITS ---
Subjective Subjective Date of Service: 08/24/20 Interval History: 79-year-old lady with underlying history of asthma/COPD, hypertension, diabetes mellitus COVID positive on 08/14/2020 admitted on 08/21/2020 with progressive dyspnea initially able to maintain normoxemia on high-flow nasal cannula. Treated with dexamethasone. Hospital course complicated by worsening hypoxemia requiring initiation of CPAP support on 08/22/2020 and transfer to intensive care. No events overnight. Continues to require being on and off CPAP support. Physical Exam Vital Signs: Vital Signs: Last Vital Signs Temp 98.8 F 08/24/20 09:00 Pulse 82 08/24/20 10:00 Resp 26 H 08/24/20 10:00 BP 120/65 08/24/20 10:00 Pulse Ox 95 08/24/20 10:00 Body Mass Index 27.3 Const: General: no acute distress, alert and awake Eyes: Sclerae: sclerae normal EOM: EOMs intact bilaterally Neck: Neck: Yes no lymphadenopathy, Yes trachea midline and Yes supple Resp: Effort & Inspection: normal respiratory effort (On CPAP support) and no respiratory distress Auscultation: clear to auscultation bilaterally Cardio: Rate: tachycardic Rhythm: regular rhythm Heart sounds: no gallops, no murmurs and no rubs GI: Palpation (GI): Soft to palpation and Other GI palpation findings present ( Nontender) Auscultation: normal bowel sounds Extrem: General: Yes no pedal edema, No clubbing and No cyanosis Objective Data Labs CBC & Chem 7: 08/24/20 05:20 08/24/20 05:20 Labs: Laboratory Results - last 24 hr 08/23/20 08/23/20 08/23/20 11:10 17:31 22:56 WBC RBC Hgb Hct MCV MCH MCHC RDW Plt Count MPV Immature Gran % (Auto) Neut % (Auto) Lymph % (Auto) [place] % (Auto) Eos % (Auto) Baso % (Auto) Lymph # (Auto) [place] # (Auto) Eos # (Auto) Baso # (Auto) Abs Immat Gran (auto) Absolute Neuts (auto) Absolute Nucleated RBC Nucleated RBC % (auto) VBG pH VBG pCO2 VBG pO2 VBG HCO3 VBG O2 Saturation VBG Base Excess Sodium Potassium Chloride Carbon Dioxide Anion Gap BUN Creatinine Estim Creat Clear Calc Estimated GFR POC Glucose 118 H 311 H 211 H Random Glucose Calcium Phosphorus Magnesium Albumin 08/24/20 08/24/20 08/24/20 05:20 05:20 05:20 WBC 12.6 H RBC 4.94 Hgb 12.9 Hct 40.1 MCV 81.2 MCH 26.1 L MCHC 32.2 RDW 12.2 Plt Count 294 MPV 9.0 L Immature Gran % (Auto) 0.8 H Neut % (Auto) 84.2 H Lymph % (Auto) 12.5 L [place] % (Auto) 2.1 Eos % (Auto) 0.2 Baso % (Auto) 0.2 Lymph # (Auto) 1.6 [place] # (Auto) 0.3 Eos # (Auto) 0.0 Baso # (Auto) 0.0 Abs Immat Gran (auto) 0.10 H Absolute Neuts (auto) 10.6 H Absolute Nucleated RBC 0.000 Nucleated RBC % (auto) 0.0 VBG pH 7.42 VBG pCO2 64 VBG pO2 59 VBG HCO3 42 VBG O2 Saturation 88.0 VBG Base Excess 14.8 Sodium 143 Potassium 3.9 Chloride 104 Carbon Dioxide 28 Anion Gap 15 BUN 18 H Creatinine 0.57 Estim Creat Clear Calc 68.3 Estimated GFR > 60 POC Glucose Random Glucose 53 L* Calcium 8.7 D Phosphorus 2.4 L Magnesium 2.0 Albumin 3.3 L 08/24/20 07:13 WBC RBC Hgb Hct MCV MCH MCHC RDW Plt Count MPV Immature Gran % (Auto) Neut % (Auto) Lymph % (Auto) [place] % (Auto) Eos % (Auto) Baso % (Auto) Lymph # (Auto) [place] # (Auto) Eos # (Auto) Baso # (Auto) Abs Immat Gran (auto) Absolute Neuts (auto) Absolute Nucleated RBC Nucleated RBC % (auto) VBG pH VBG pCO2 VBG pO2 VBG HCO3 VBG O2 Saturation VBG Base Excess Sodium Potassium Chloride Carbon Dioxide Anion Gap BUN Creatinine Estim Creat Clear Calc Estimated GFR POC Glucose 168 H Random Glucose Calcium Phosphorus Magnesium Albumin Microbiology Microbiology Results: Microbiology 08/20/20 10:59 Blood - Venous Blood Culture - Preliminary No growth after 48 hours. 08/20/20 10:55 Blood - Venous Blood Culture - Preliminary No growth after 48 hours. Progress Note: A&P Assessment and plan (1) Acute respiratory failure with hypoxia: Status: Acute Assessment and Plan: Assessment: 79-year-old lady with underlying history of asthma/COPD, hypertension, and diabetes mellitus COVID positive on 08/14/2020, admitted on 08/21/2020 with acute hypoxic respiratory failure secondary to COVID-19 ARDS with progressive hypoxemia requiring initiation of CPAP support and transfer to intensive care. Plan: Neuro: No acute issues. Cardiac: No acute issues. Underlying history of hypertension and CAD. Pulmonary: Acute hypoxic respiratory failure secondary to COVID-19 ARDS. Requires being on and off CPAP/high-flow nasal cannula support Continue to titrate off noninvasive positive pressure ventilatory support as tolerated. Renal: No acute issues. Endo: No acute issues. Underlying diabetes mellitus. GI: No acute issues. ID: COVID-19 ARDS on continue with dexamethasone. Heme/Onc: No acute issues. Psych: No acute issues. Miscellaneous: No acute issues. Prophylaxis: Lovenox Diet: Diabetic Critical care time spent: 45 minutes (2) COVID-19: Status: Acute (3) HTN (hypertension): Status: Acute (4) T2DM (type 2 diabetes mellitus): Status: Acute (5) Asthma: Status: Acute (6) COPD (chronic obstructive pulmonary disease): Status: Acute Time Spent With Patient Total time spent with greater than 50% in coordination of care (as documented) at patient's floor/unit and/or counseling patient:: 0 Critical Care Time 45
[2020-08-24 11:22] LABS: Glucose, Whole Blood 79 mg/dL (60-115)
[2020-08-24 11:22] LABS: Glucose, Whole Blood 58 mg/dL (60-115)
[2020-08-24] MEDS: Dextrose 5 % 1,000 ML 50 ML IVCONT (15:52)
[2020-08-24 17:30] LABS: Glucose, Whole Blood 139 mg/dL (60-115)
[2020-08-24] MEDS: Enoxaparin Sodium 40 MG/0.4 ML SYRINGE SUBCUT (18:01)
--- NOTE | 2020-08-24 19:04 | PC.NURSE ---
Attempt to switch patient back on highflow/nonrebreather with respiratory x3 today without success. sao2 as low as 70%. pt unable to eat. iv fluids restarted. oob to chair/commode with minimal monet. update to [facility] x2. continue on cpap and continue skin protectant to maintain skin integrity.
[2020-08-24 20:09] LABS: Glucose, Whole Blood 166 mg/dL (60-115)
[2020-08-25] VITALS (29 sets, daily range): BP systolic 100–141; BP diastolic 43–69; PULSE 65–100; RESP 20–30; TEMP 36.1–37.3; O2SAT 80–94
[2020-08-25 05:36] LABS: MANUAL DIFF FLAG NO
[2020-08-25 05:37] LABS: Eosinophils Percent Auto 0.3 % (0-4); Hematocrit 39.2 % (37-47); Hemoglobin 12.5 g/dl (12.0-16.0); Imm Gran Pct Auto 0.9 % (0.0-0.4); Lymphocytes Absolute Auto 1.1 X10*3/uL (1.2-4.9); Mean Corpuscular HGB Conc 31.9 g/dl (31.0-35.0); Mean Corpuscular Hemoglobin 25.9 pg (27.0-33.0); Mean Corpuscular Volume 81.2 fL (80-98); Monocytes Absolute Auto 0.2 X10*3/uL (0.1-1.2); Monocytes Percent Auto 1.9 % (2-11); Neutrophils Absolute Auto 9.6 X10*3/uL (2.0-8.3); Neutrophils Percent Auto 86.9 % (45-73); Platelet Count 276 X10*3/uL (160-400); Red Blood Count 4.83 X10*6/uL (4.20-5.50); Red Cell Distribution Width 12.2 % (11.0-16.0)
[2020-08-25 05:44] LABS: HCO3 VBG 34 mmol/L; PCO2 VBG 45 mmHg; PO2 VBG 82 mmHg; pH VBG 7.47 (7.32-7.43)
[2020-08-25 05:45] LABS: Base Excess VBG 9.5 mmol/L
[2020-08-25 06:07] LABS: Anion Gap 14 (12-20); Blood Urea Nitrogen 15 mg/dL (9-16); Carbon Dioxide 30 mmol/L (22-29); Chloride 102 mmol/L (96-108); Estimated Glomerular Filt Rate > 60; Glucose Random 179 mg/dL (60-115); Phosphorus 2.6 mg/dL (2.7-4.5); Sodium 142 mmol/L (135-145)
[2020-08-25] MEDS: 0.9 % Sodium Chloride Flush 3 ML SYRINGE IVFLUSH ×2 (07:38→15:32)
[2020-08-25 07:52] LABS: Glucose, Whole Blood 168 mg/dL (60-115)
--- NOTE | 2020-08-25 08:38 | PC.NURSE ---
VERIFIED WITH MD THAT TUBE FEEDS REMAIN ON HOLD AT THIS TIME. MD ORDERED AND ADMINISTERED D5 @ 100ML/HR.
[2020-08-25] MEDS: Potassium Phosphate 30 MMOL in 0.9 % Sodium Chloride 500 ML 85 MMOL IV (08:53)
--- NOTE | 2020-08-25 10:52 | P.PNCC_ITS ---
Subjective Subjective Date of Service: 08/25/20 Interval History: 79-year-old lady with underlying history of asthma/COPD, hypertension, diabetes mellitus COVID positive on 08/14/2020 admitted on 08/21/2020 with progressive dyspnea initially able to maintain normoxemia on high-flow nasal cannula. Treated with dexamethasone. Hospital course complicated by worsening hypoxemia requiring initiation of CPAP support on 08/22/2020 and transfer to intensive care. No events overnight. Continues to require CPAP support. Physical Exam Vital Signs: Vital Signs: Last Vital Signs Temp 97.8 F 08/25/20 03:00 Pulse 100 08/25/20 09:59 Resp 29 H 08/25/20 09:59 BP 128/64 08/25/20 09:59 Pulse Ox 90 L 08/25/20 09:59 Body Mass Index 27.3 Const: General: no acute distress, alert and awake Eyes: Sclerae: sclerae normal EOM: EOMs intact bilaterally Neck: Neck: Yes no lymphadenopathy, Yes trachea midline and Yes supple Resp: Effort & Inspection: normal respiratory effort (On CPAP) and no respiratory distress Auscultation: crackles (Diffuse bilateral) Cardio: Rate: regular rate Rhythm: regular rhythm Heart sounds: no gallops, no murmurs and no rubs GI: Palpation (GI): Soft to palpation and Other GI palpation findings present ( Nontender) Auscultation: normal bowel sounds Extrem: General: No clubbing, No cyanosis and Yes edema (Trace bilateral) Objective Data Labs CBC & Chem 7: 08/25/20 05:30 08/25/20 05:30 Labs: Laboratory Results - last 24 hr 08/24/20 08/24/20 08/24/20 11:16 11:18 17:20 WBC RBC Hgb Hct MCV MCH MCHC RDW Plt Count MPV Immature Gran % (Auto) Neut % (Auto) Lymph % (Auto) [place] % (Auto) Eos % (Auto) Baso % (Auto) Lymph # (Auto) [place] # (Auto) Eos # (Auto) Baso # (Auto) Abs Immat Gran (auto) Absolute Neuts (auto) Absolute Nucleated RBC Nucleated RBC % (auto) VBG pH VBG pCO2 VBG pO2 VBG HCO3 VBG O2 Saturation VBG Base Excess Sodium Potassium Chloride Carbon Dioxide Anion Gap BUN Creatinine Estim Creat Clear Calc Estimated GFR POC Glucose 58 L* 79 139 H Random Glucose Calcium Phosphorus Magnesium Albumin 08/24/20 08/25/20 08/25/20 19:58 05:30 05:30 WBC 11.0 H RBC 4.83 Hgb 12.5 Hct 39.2 MCV 81.2 MCH 25.9 L MCHC 31.9 RDW 12.2 Plt Count 276 MPV 9.0 L Immature Gran % (Auto) 0.9 H Neut % (Auto) 86.9 H Lymph % (Auto) 10.0 L [place] % (Auto) 1.9 L Eos % (Auto) 0.3 Baso % (Auto) 0.0 Lymph # (Auto) 1.1 L [place] # (Auto) 0.2 Eos # (Auto) 0.0 Baso # (Auto) 0.0 Abs Immat Gran (auto) 0.10 H Absolute Neuts (auto) 9.6 H Absolute Nucleated RBC 0.000 Nucleated RBC % (auto) 0.0 VBG pH VBG pCO2 VBG pO2 VBG HCO3 VBG O2 Saturation VBG Base Excess Sodium 142 Potassium 4.0 Chloride 102 Carbon Dioxide 30 H Anion Gap 14 BUN 15 Creatinine 0.59 Estim Creat Clear Calc 66.0 Estimated GFR > 60 POC Glucose 166 H Random Glucose 179 H D Calcium 8.0 L D Phosphorus 2.6 L Magnesium 2.0 Albumin 3.0 L 08/25/20 08/25/20 05:30 07:39 WBC RBC Hgb Hct MCV MCH MCHC RDW Plt Count MPV Immature Gran % (Auto) Neut % (Auto) Lymph % (Auto) [place] % (Auto) Eos % (Auto) Baso % (Auto) Lymph # (Auto) [place] # (Auto) Eos # (Auto) Baso # (Auto) Abs Immat Gran (auto) Absolute Neuts (auto) Absolute Nucleated RBC Nucleated RBC % (auto) VBG pH 7.47 H VBG pCO2 45 VBG pO2 82 VBG HCO3 34 VBG O2 Saturation 95.0 VBG Base Excess 9.5 Sodium Potassium Chloride Carbon Dioxide Anion Gap BUN Creatinine Estim Creat Clear Calc Estimated GFR POC Glucose 168 H Random Glucose Calcium Phosphorus Magnesium Albumin Microbiology Microbiology Results: Microbiology 08/20/20 10:59 Blood - Venous Blood Culture - Preliminary No growth after 48 hours. 08/20/20 10:55 Blood - Venous Blood Culture - Preliminary No growth after 48 hours. Progress Note: A&P Assessment and plan (1) Acute respiratory failure with hypoxia: Status: Acute Assessment and Plan: Assessment: 79-year-old lady with underlying history of asthma/COPD, hypertension, and diabetes mellitus COVID positive on 08/14/2020, admitted on 08/21/2020 with acute hypoxic respiratory failure secondary to COVID-19 ARDS with progressive hypoxemia requiring initiation of CPAP support and transfer to intensive care. Plan: Neuro: No acute issues. Cardiac: No acute issues. Underlying history of hypertension and CAD. Pulmonary: Acute hypoxic respiratory failure secondary to COVID-19 ARDS. Requires being on and off CPAP/high-flow nasal cannula support Continue to titrate off noninvasive positive pressure ventilatory support as tolerated. Renal: No acute issues. Endo: No acute issues. Underlying diabetes mellitus. GI: No acute issues. ID: COVID-19 ARDS continue with dexamethasone. Heme/Onc: No acute issues. Psych: No acute issues. Miscellaneous: No acute issues. Prophylaxis: Lovenox Diet: Diabetic Critical care time spent: 45 minutes (2) COVID-19: Status: Acute (3) ARDS (adult respiratory distress syndrome): Status: Acute (4) HTN (hypertension): Status: Acute (5) T2DM (type 2 diabetes mellitus): Status: Acute (6) COPD (chronic obstructive pulmonary disease): Status: Acute Time Spent With Patient Total time spent with greater than 50% in coordination of care (as documented) at patient's floor/unit and/or counseling patient:: 0 Critical Care Time 45
[2020-08-25 11:35] LABS: Glucose, Whole Blood 186 mg/dL (60-115)
[2020-08-25] MEDS: Dextrose 5 % 1,000 ML 30 ML IVCONT (11:55)
[2020-08-25] MEDS: Insulin Lispro 100 UNIT/ML 3 ML VIAL SUBCUT (17:07)
[2020-08-25 17:27] LABS: Glucose, Whole Blood 240 mg/dL (60-115)
[2020-08-25] MEDS: fentaNYL citrate/PF 100 MCG/2 ML VIAL 50 MCG IVPUSH (17:27)
[2020-08-25] MEDS: Enoxaparin Sodium 40 MG/0.4 ML SYRINGE SUBCUT (17:28)
--- NOTE | 2020-08-25 17:28 | PC.RT ---
Pt removed from CPAP for a HFNC trial. Pt was coughing and spitting, having trouble swallowing. RN and I observed airway. to find large hardened mucus plug stuck to tongue and roof of mouth. Pt unable to swallow normally till removed. MD notified. once airway was clear returned to CPAP 12 100%. Since HFNC 100/60 and NRB sPo2 was 73-83%. Pt complaining of chest pain under left breast and tingling in her right hand fingers. MD aware. Will continue to monitor. Dressing applied to bridge of nose for sore red area.
--- NOTE | 2020-08-25 17:44 | PC.NURSE ---
Addendum entered by Zuleyka Samuel RN 08/25/20 18:10: BREAKFAST AND LUNCH INSULIN HELD DUE TO NOT BEING ABLE TO COME OFF CPAP TO EAT. DINNER POC 240, NOTIFIED AND INSTRUCTED TO COVER WITH SLIDING SCALE DOSE ORDERED. Original Note: CPAP REMOVED AT 1435 TO TRY TO SWITCH OVER TO HIGH FLOW. ORAL CAVITY OCCULTED BY LARGE, THICK, DRIED MUCUS PLUG STUCK TO TONGUE, ROOF OF MOUTH AND BACK OF THROAT BY RN AND RT. ORAL CARE DONE WITH ASSIST FROM PATIENT. UPPER PARTIAL DENTURE REMOVED, CLEANED AND NOW SOAKING IN LABELED DENTURE CUP. PT UNABLE TO MAINTAIN 02 ON HIGH FLOW, DE-SAT TO 78-80%. MD NOTIFIED. PT RETURNED TO CPAP 12 ON 100% AND 02 RETURNED > 90% BRIDGE OF NOSE NOTED TO BE PINK, BUT BLANCHABLE - DRESSING APPLIED FOR PROTECTION. PT STARTING POINTING TO HER CHEST, PASTE MIXING SUPERVISOR CALLED BEDSIDE. PT STATES SHE IS HAVING PAIN IN HER CHEST. 8/10 AND IT'S A CRUNCHING FEELING. MD NOTIFIED AND ORDERED PRN FENTANYL 50 MCG. ADMINISTERED AND PT IS NOW RESTING COMFORTABLY. AFEBRILE. VSS. SR W/ PACS ON TELE. LS DIMINISHED THROUGHOUT. OOB TO COMMODE W/ 1 ASSIST TO VOID. NO BM THIS SHIFT. Q2H REPO, BARRIER CREAM, BATHED, PILLOWS UTILIZED. FAMILY UPDATED MULTIPLE TIMES THROUGHOUT SHIFT.
[2020-08-25 22:43] LABS: Glucose, Whole Blood 140 mg/dL (60-115)
[2020-08-26] VITALS (30 sets, daily range): BP systolic 110–161; BP diastolic 51–73; PULSE 70–125; RESP 16–32; TEMP 36.5–37.3; O2SAT 85–96
[2020-08-26 05:33] LABS: MANUAL DIFF FLAG NO
[2020-08-26 05:34] LABS: Basophils Percent Auto 0.1 % (0-2); Eosinophils Absolute Auto 0.1 X10*3/uL (0.0-0.4); Eosinophils Percent Auto 0.4 % (0-4); Hematocrit 38.4 % (37-47); Hemoglobin 12.2 g/dl (12.0-16.0); Imm Gran Abs Auto 0.12 X10*3/uL (0.00-0.03); Lymphocytes Absolute Auto 1.1 X10*3/uL (1.2-4.9); Lymphocytes Percent Auto 8.9 % (20-40); Mean Corpuscular HGB Conc 31.8 g/dl (31.0-35.0); Mean Corpuscular Hemoglobin 25.9 pg (27.0-33.0); Mean Corpuscular Volume 81.5 fL (80-98); Mean Platelet Volume 9.2 fL (9.4-12.3); Monocytes Absolute Auto 0.2 X10*3/uL (0.1-1.2); Monocytes Percent Auto 1.2 % (2-11); Neutrophils Absolute Auto 10.8 X10*3/uL (2.0-8.3); Neutrophils Percent Auto 88.4 % (45-73); Platelet Count 277 X10*3/uL (160-400); Red Blood Count 4.71 X10*6/uL (4.20-5.50); Red Cell Distribution Width 12.2 % (11.0-16.0); White Blood Count 12.2 X10*3/uL (4.8-10.8)
[2020-08-26 05:35] LABS: pH VBG 7.42 (7.32-7.43)
[2020-08-26 05:36] LABS: Base Excess VBG 12.8 mmol/L; HCO3 VBG 39 mmol/L; PCO2 VBG 60 mmHg; PO2 VBG 50 mmHg
[2020-08-26 06:12] LABS: Anion Gap 14 (12-20); Blood Urea Nitrogen 15 mg/dL (9-16); Carbon Dioxide 30 mmol/L (22-29); Chloride 100 mmol/L (96-108); Creatinine Clr Calc Pharmacy 67.2; Estimated Glomerular Filt Rate > 60; Glucose Random 141 mg/dL (60-115); Magnesium 2.2 mg/dL (1.6-2.6); Phosphorus 2.3 mg/dL (2.7-4.5); Potassium 4.2 mmol/L (3.3-5.1); Sodium 140 mmol/L (135-145)
[2020-08-26 07:44] LABS: Glucose, Whole Blood 177 mg/dL (60-115)
[2020-08-26] MEDS: 0.9 % Sodium Chloride Flush 3 ML SYRINGE IVFLUSH ×2 (08:17→13:55)
[2020-08-26] MEDS: Potassium Phosphate 30 MMOL in 0.9 % Sodium Chloride 500 ML 85 MMOL IV (10:29)
--- NOTE | 2020-08-26 11:26 | P.PNCC_ITS ---
Subjective Subjective Date of Service: 08/26/20 Interval History: ICU day 5 for acute hypoxic respiratory failure secondary to COVID-19 ARDS. 79-year-old lady with underlying history of asthma/COPD, hypertension, diabetes mellitus COVID positive on 08/14/2020 admitted on 08/21/2020 with progressive dyspnea initially able to maintain normoxemia on high-flow nasal cannula. Treated with dexamethasone. Hospital course complicated by worsening hypoxemia requiring initiation of CPAP support on 08/22/2020 and transfer to intensive care. No events overnight. Continues to require CPAP support. Physical Exam Vital Signs: Vital Signs: Last Vital Signs Temp 97.1 F 08/25/20 21:00 Pulse 101 H 08/26/20 11:00 Resp 20 08/26/20 11:00 BP 142/67 H 08/26/20 11:00 Pulse Ox 93 08/26/20 11:00 Body Mass Index 27.3 Const: General: no acute distress, alert and awake Eyes: Sclerae: sclerae normal EOM: EOMs intact bilaterally Neck: Neck: Yes no lymphadenopathy, Yes trachea midline and Yes supple Resp: Effort & Inspection: normal respiratory effort and no respiratory distress Auscultation: crackles (Diffuse bilateral) Cardio: Rate: regular rate Rhythm: regular rhythm Heart sounds: no gal lops, no murmurs and no rubs GI: Palpation (GI): Soft to palpation and Other GI palpation findings present ( Nontender) Auscultation: normal bowel sounds Extrem: General: No clubbing, No cyanosis and Yes edema (Trace bilateral) Objective Data Labs CBC & Chem 7: 08/26/20 05:27 08/26/20 05:27 Labs: Laboratory Results - last 24 hr 08/25/20 08/25/20 08/25/20 11:32 16:31 22:32 WBC RBC Hgb Hct MCV MCH MCHC RDW Plt Count MPV Immature Gran % (Auto) Neut % (Auto) Lymph % (Auto) [place] % (Auto) Eos % (Auto) Baso % (Auto) Lymph # (Auto) [place] # (Auto) Eos # (Auto) Baso # (Auto) Abs Immat Gran (auto) Absolute Neuts (auto) Absolute Nucleated RBC Nucleated RBC % (auto) VBG pH VBG pCO2 VBG pO2 VBG HCO3 VBG O2 Saturation VBG Base Excess Sodium Potassium Chloride Carbon Dioxide Anion Gap BUN Creatinine Estim Creat Clear Calc Estimated GFR POC Glucose 186 H 240 H 140 H Random Glucose Calcium Phosphorus Magnesium Albumin 08/26/20 08/26/20 08/26/20 05:27 05:27 05:27 WBC 12.2 H RBC 4.71 Hgb 12.2 Hct 38.4 MCV 81.5 MCH 25.9 L MCHC 31.8 RDW 12.2 Plt Count 277 MPV 9.2 L Immature Gran % (Auto) 1.0 H Neut % (Auto) 88.4 H Lymph % (Auto) 8.9 L [place] % (Auto) 1.2 L Eos % (Auto) 0.4 Baso % (Auto) 0.1 Lymph # (Auto) 1.1 L [place] # (Auto) 0.2 Eos # (Auto) 0.1 Baso # (Auto) 0.0 Abs Immat Gran (auto) 0.12 H Absolute Neuts (auto) 10.8 H Absolute Nucleated RBC 0.000 Nucleated RBC % (auto) 0.0 VBG pH 7.42 VBG pCO2 60 VBG pO2 50 VBG HCO3 39 VBG O2 Saturation 80.0 VBG Base Excess 12.8 Sodium 140 Potassium 4.2 Chloride 100 Carbon Dioxide 30 H Anion Gap 14 BUN 15 Creatinine 0.58 Estim Creat Clear Calc 67.2 Estimated GFR > 60 POC Glucose Random Glucose 141 H Calcium 8.0 L Phosphorus 2.3 L Magnesium 2.2 Albumin 3.0 L 08/26/20 07:38 WBC RBC Hgb Hct MCV MCH MCHC RDW Plt Count MPV Immature Gran % (Auto) Neut % (Auto) Lymph % (Auto) [place] % (Auto) Eos % (Auto) Baso % (Auto) Lymph # (Auto) [place] # (Auto) Eos # (Auto) Baso # (Auto) Abs Immat Gran (auto) Absolute Neuts (auto) Absolute Nucleated RBC Nucleated RBC % (auto) VBG pH VBG pCO2 VBG pO2 VBG HCO3 VBG O2 Saturation VBG Base Excess Sodium Potassium Chloride Carbon Dioxide Anion Gap BUN Creatinine Estim Creat Clear Calc Estimated GFR POC Glucose 177 H Random Glucose Calcium Phosphorus Magnesium Albumin Microbiology Microbiology Results: Microbiology 08/20/20 10:59 Blood - Venous Blood Culture - Final No growth after 5 days. 08/20/20 10:55 Blood - Venous Blood Culture - Final No growth after 5 days. Progress Note: A&P Assessment and plan (1) ARDS (adult respiratory distress syndrome): Status: Acute Assessment and Plan: Assessment: 79-year-old lady with underlying history of asthma/COPD, hypertension, and diabetes mellitus COVID positive on 08/14/2020, admitted on 08/21/2020 with acute hypoxic respiratory failure secondary to COVID-19 ARDS with progressive hypoxemia requiring initiation of CPAP support and transfer to intensive care. Plan: Neuro: No acute issues. Cardiac: No acute issues. Underlying history of hypertension and CAD. Pulmonary: Acute hypoxic respiratory failure secondary to COVID-19 ARDS requ iring CPAP support. Continue to titrate off noninvasive positive pressure ventilatory support as tolerated. Renal: No acute issues. Endo: No acute issues. Underlying diabetes mellitus. GI: No acute issues. ID: COVID-19 ARDS continue with dexamethasone. Heme/Onc: No acute issues. Psych: No acute issues. Miscellaneous: No acute issues. Prophylaxis: Lovenox Diet: Diabetic Critical care time spent: 45 minutes (2) Acute respiratory failure with hypoxia: Status: Acute (3) COVID-19: Status: Acute (4) HTN (hypertension): Status: Acute (5) T2DM (type 2 diabetes mellitus): Status: Acute (6) COPD (chronic obstructive pulmonary disease): Status: Acute (7) Asthma: Status: Acute Time Spent With Patient Total time spent with greater than 50% in coordination of care (as documented) at patient's floor/unit and/or counseling patient:: 0 Critical Care Time 45 minutes
[2020-08-26 11:34] LABS: Glucose, Whole Blood 235 mg/dL (60-115)
[2020-08-26] MEDS: Insulin Lispro 100 UNIT/ML 3 ML VIAL SUBCUT ×3 (11:36→21:04)
[2020-08-26] MEDS: Dextrose 5 % 1,000 ML 30 ML IVCONT (11:38)
[2020-08-26] MEDS: Metoprolol Succinate ER 50 MG TAB.ER.24H PO (13:54)
[2020-08-26] MEDS: Enoxaparin Sodium 40 MG/0.4 ML SYRINGE SUBCUT (16:53)
[2020-08-26 16:55] LABS: Glucose, Whole Blood 381 mg/dL (60-115)
--- NOTE | 2020-08-26 18:41 | PC.NURSE ---
Pt changed to nasal cpap 15 FiO2 100%, at 0930, SaO2 down to 76%, instructed to keep mouth closed to hold pressure, SaO2 up to 91%. RR 18-32. Lungs dim all lobes, FC bases bilat. Started to drink ensure for meals and tolerated well. Suctioned oropharynx with yankeur suction for moderate amt thick patricio/white sputum from intermittent coughing. HR trending up to 130 STACH, 50mg PO metoprolol given, HR 90, mild JVD, no edema. Urine output 990ml, intake 2L. clear yellow. Fungal rash to groin bilat, coccyx red blanchable, barrier cream applied. Incontinent of stool x1, attempt bed holm. POC 177, 235-4unit lispro, 381-10unit MD crys aware. Granddaughter updated. Bed locked and in lowest position, bed alarm on, call ornelas in reach. Plan to use CPAP full mask at night.
[2020-08-26] MEDS: Insulin Glargine,Hum.rec.anlog 100 UNIT/ML 10 ML VIAL 20 UNIT SUBCUT (21:04)
[2020-08-26 21:32] LABS: Glucose, Whole Blood 289 mg/dL (60-115)
[2020-08-26] MEDS: Acetaminophen 325 MG TABLET 650 MG PO (22:26)
[2020-08-27] VITALS (30 sets, daily range): BP systolic 112–153; BP diastolic 56–77; PULSE 25–116; RESP 17–35; TEMP 37.4–38.6; O2SAT 85–95
--- NOTE | 2020-08-27 | XR_ITS ---
EXAMINATION: XR CHEST CLINICAL INFORMATION: IJ placement COMPARISON: Chest x-ray 08/27/2020, 11:47 AM TECHNIQUE: Frontal portable view of the chest was obtained. 10:27 PM FINDINGS: Tubes and lines: 1. Right IJ catheter tip at caval atrial junction in the superior vena cava. There is no pneumothorax. There is persistent extensive bilateral alveolar and interstitial airspace disease unchanged since prior chest x-ray. Findings concerning for Covid pneumonia. No pleural effusion. Heart size normal. Cardiac mediastinal contours are normal. XR/XR chest 1V IMPRESSION: Right IJ catheter tip at caval atrial junction in the superior vena cava. There is no pneumothorax.
--- NOTE | 2020-08-27 | XR_ITS ---
EXAMINATION: XR CHEST CLINICAL INFORMATION: COVID pneumonia. COMPARISON: Chest done on 08/20/2020. TECHNIQUE: Frontal view of the chest was obtained. FINDINGS: Diffuse interstitial airspace opacities are noted bilaterally with predominant involvement of both lower lobes. In the appropriate clinical setting, the finding may represent COVID pneumonia. No dense airspace consolidation. No evidence of any effusion or pneumothorax. The heart size is within normal limits. XR/XR chest 1V IMPRESSION: Bilateral diffuse interstitial airspace disease with predominant involvement of both lower lobes, shows significant progression since 08/20/2020. In the appropriate clinical setting, the finding may represent COVID pneumonia.
[2020-08-27 05:40] LABS: MANUAL DIFF FLAG NO
[2020-08-27 05:43] LABS: Base Excess VBG 13.6 mmol/L; HCO3 VBG 38 mmol/L; PCO2 VBG 47 mmHg; PO2 VBG 76 mmHg; pH VBG 7.51 (7.32-7.43)
[2020-08-27 05:44] LABS: Basophils Percent Auto 0.1 % (0-2); Eosinophils Absolute Auto 0.1 X10*3/uL (0.0-0.4); Eosinophils Percent Auto 0.8 % (0-4); Hematocrit 40.9 % (37-47); Hemoglobin 13.2 g/dl (12.0-16.0); Imm Gran Abs Auto 0.22 X10*3/uL (0.00-0.03); Imm Gran Pct Auto 1.4 % (0.0-0.4); Lymphocytes Absolute Auto 1.2 X10*3/uL (1.2-4.9); Lymphocytes Percent Auto 7.7 % (20-40); Mean Corpuscular HGB Conc 32.3 g/dl (31.0-35.0); Mean Corpuscular Hemoglobin 26.2 pg (27.0-33.0); Mean Corpuscular Volume 81.2 fL (80-98); Mean Platelet Volume 9.6 fL (9.4-12.3); Monocytes Absolute Auto 0.2 X10*3/uL (0.1-1.2); Neutrophils Absolute Auto 14.2 X10*3/uL (2.0-8.3); Platelet Count 217 X10*3/uL (160-400); Red Blood Count 5.04 X10*6/uL (4.20-5.50); Red Cell Distribution Width 12.1 % (11.0-16.0)
[2020-08-27 06:14] LABS: Albumin Level 3.1 g/dL (3.5-5.0); Anion Gap 13 (12-20); Blood Urea Nitrogen 16 mg/dL (9-16); Calcium 8.4 mg/dL (8.4-10.2); Carbon Dioxide 29 mmol/L (22-29); Chloride 103 mmol/L (96-108); Creatinine Clr Calc Pharmacy 73.4; Estimated Glomerular Filt Rate > 60; Glucose Random 99 mg/dL (60-115); Magnesium 2.1 mg/dL (1.6-2.6); Phosphorus 2.3 mg/dL (2.7-4.5); Potassium 4.4 mmol/L (3.3-5.1); Sodium 141 mmol/L (135-145)
[2020-08-27 07:26] LABS: Glucose, Whole Blood 118 mg/dL (60-115)
--- NOTE | 2020-08-27 07:57 | PC.NURSE ---
Shift eval 7p-7a: Patient on CPAP 15, 100% nasal pillows. Anytime mouth breathing occurs or off mask, 02sat drops to 70's at start of night. At approx 4am, patient desat to 80's, with no activity, Per Daniel NEGATIVE RETOUCHER - tire changer to facemask CPAP, patient tolerated better. Patient attempted to have one drink, O2sat dropped to 50's, but recovered w/ mask back on. Dyspnea without oxygen, but then able to rest. crackles heard at bases. Temp up to 100.8 - NEGATIVE RETOUCHER made aware. Patient repositioning on own and with 1 assist. RR low 20's. Productive cough - clear sputum.
[2020-08-27] MEDS: acetaZOLAMIDE sodium 500 MG VIAL IVPUSH (10:21)
[2020-08-27] MEDS: Nystatin Powder 15 GM BOTTLE 1 APPL TOPICAL ×2 (11:12→20:29)
[2020-08-27 11:21] LABS: Glucose, Whole Blood 151 mg/dL (60-115)
--- NOTE | 2020-08-27 12:48 | P.PNCC_ITS ---
Subjective Subjective Date of Service: 08/27/20 Interval History: Mrs. Varghese was admitted to the ICU on August 22 with hypoxemic respiratory failure secondary to COVID pneumonia. The patient is an 79-year-old lady with underlying history of ASCVD with angina, asthma/COPD, hypertension, diabetes mellitus, hyperlipidemia, and pulmonary nodules. She tested COVID positive on 08/14/2020 after having been symptomatic since approximately August 11. CXR on Aug 15 showed NAPD. She was admitted to [facility] on 08/20/2020 with hypoxemia at home, Sat?s down to 68% on room air, and progressive dyspnea. Sat in ED improved to 88-91% on 12L NC. CTA showed no evidence of PE; there was diffuse emphysema with extensive severe reticular changes and honeycombing throughout, suggestive of chronic interstitial lung disease. By my reading, there may also be some subtle ground glass changes c/w COVID pneumonia. COVID 19 test was positive, biomarkers showed DDimer 371, ferritin 453, LDH 320, CRP 12.84. She was admitted and started on Decadron. Initial initially able to maintain oxygenation on high-flow nasal cannula. Worsening hypoxemia lead to initiation of CPAP support on 08/22 and transfer to ICU. Since Aug 23, she?s been on 100% FiO2 continuously, mostly by CPAP. Has not been able to come off CPAP to HFNC at all today. See vital signs below. New low-grade temps up to 101.5 degrees this morning. This morning, she?s on facemask CPAP +15/100%; when the RT tried nasal pillows or naso/oral CPAP, her Sat?s plummeted. Tidal vols on the CPAP are running 600?s, Ve about 18L, RR 27- 31, Sat low 90?s. Venous blood gas this morning showed 7.51/47/+13. She has no JVD. Expiratory phase is normal. She has minimal accessory muscle use, work of breathing looks almost normal, other than that attributable to her respiratory rate. She has no gross edema. LABORATORY DATA: As below. Notably, white count today's bumped to 16. IMAGING: Chest x-ray today shows diffuse bilateral interstitial disease, significantly worse than the chest x-ray of August 20. IMPRESSION: 1. Underlying baseline severe interstitial lung disease. 2. Bilateral acute COVID pneumonia. Changed her Decadron to Solu-Medrol 80 mg bid. Added vitamin-C, vitamin-D, Pepcid, and thiamine. (Was not a candidate for remdesivir or convalescent plasma -- presented too late. 3. Severe acute hypoxemic respiratory failure, secondary to the above. Supportive management with CPAP and opiates prn. Diurese, given her normal BUN & creat. Can up to BiPAP if/when necessary. Considering pulse steroids. 4. ID: New fever and bumped white count. Rule out bacterial superinfection. Discussed with pharmacy. Started her on doxycycline. 5. Diabetes. On Lantus plus sliding scale. 6. Hypertension. On beta-blockers. Change to esmolol if unable to take po?s. 7. Coronary artery disease. Asymptomatic at present. Continue Plavix. 8. Metabolic alkalosis. Started Diamox. 9. Anticoagulation. Currently only standard dose Lovenox DVT prophylaxis. Prognosis is very guarded. Hard to believe she will survive this with the severity of her underlying lung disease. Seems like only a matter of time till she winds up intubated. Critical care time (including full chart review and hospital course summary): 75+ minutes. Physical Exam Vital Signs: Vital Signs: Last Vital Signs Temp 101.1 F H 08/27/20 12:00 Pulse 97 08/27/20 12:00 Resp 25 H 08/27/20 12:00 BP 153/59 H 08/27/20 12:00 Pulse Ox 91 L 08/27/20 12:00 Body Mass Index 27.3 Objective Data Labs CBC & Chem 7: 08/27/20 05:31 08/27/20 05:31 Labs: Laboratory Results - last 24 hr 08/26/20 08/26/20 08/27/20 16:46 20:58 05:31 WBC 16.0 H RBC 5.04 Hgb 13.2 Hct 40.9 MCV 81.2 MCH 26.2 L MCHC 32.3 RDW 12.1 Plt Count 217 MPV 9.6 Immature Gran % (Auto) 1.4 H Neut % (Auto) 89.0 H Lymph % (Auto) 7.7 L [place] % (Auto) 1.0 L Eos % (Auto) 0.8 Baso % (Auto) 0.1 Lymph # (Auto) 1.2 [place] # (Auto) 0.2 Eos # (Auto) 0.1 Baso # (Auto) 0.0 Abs Immat Gran (auto) 0.22 H Absolute Neuts (auto) 14.2 H Absolute Nucleated RBC 0.000 Nucleated RBC % (auto) 0.0 VBG pH VBG pCO2 VBG pO2 VBG HCO3 VBG O2 Saturation VBG Base Excess Sodium Potassium Chloride Carbon Dioxide Anion Gap BUN Creatinine Estim Creat Clear Calc Estimated GFR POC Glucose 381 H* 289 H Random Glucose Calcium Phosphorus Magnesium Albumin 08/27/20 08/27/20 08/27/20 05:31 05:31 07:19 WBC RBC Hgb Hct MCV MCH MCHC RDW Plt Count MPV Immature Gran % (Auto) Neut % (Auto) Lymph % (Auto) [place] % (Auto) Eos % (Auto) Baso % (Auto) Lymph # (Auto) [place] # (Auto) Eos # (Auto) Baso # (Auto) Abs Immat Gran (auto) Absolute Neuts (auto) Absolute Nucleated RBC Nucleated RBC % (auto) VBG pH 7.51 H VBG pCO2 47 VBG pO2 76 VBG HCO3 38 VBG O2 Saturation 96.0 VBG Base Excess 13.6 Sodium 141 Potassium 4.4 Chloride 103 Carbon Dioxide 29 Anion Gap 13 BUN 16 Creatinine 0.53 Estim Creat Clear Calc 73.4 Estimated GFR > 60 POC Glucose 118 H Random Glucose 99 Calcium 8.4 Phosphorus 2.3 L Magnesium 2.1 Albumin 3.1 L 08/27/20 11:17 WBC RBC Hgb Hct MCV MCH MCHC RDW Plt Count MPV Immature Gran % (Auto) Neut % (Auto) Lymph % (Auto) [place] % (Auto) Eos % (Auto) Baso % (Auto) Lymph # (Auto) [place] # (Auto) Eos # (Auto) Baso # (Auto) Abs Immat Gran (auto) Absolute Neuts (auto) Absolute Nucleated RBC Nucleated RBC % (auto) VBG pH VBG pCO2 VBG pO2 VBG HCO3 VBG O2 Saturation VBG Base Excess Sodium Potassium Chloride Carbon Dioxide Anion Gap BUN Creatinine Estim Creat Clear Calc Estimated GFR POC Glucose 151 H Random Glucose Calcium Phosphorus Magnesium Albumin Microbiology Microbiology Results: Microbiology 08/20/20 10:59 Blood - Venous Blood Culture - Final No growth after 5 days. 08/20/20 10:55 Blood - Venous Blood Culture - Final No growth after 5 days. Progress Note: A&P Time Spent With Patient Time: Total time spent is greater than 50% in coordination of care (as documented) at patient's floor/unit and/or counseling patient: Total time spent with greater than 50% in coordination of care (as documented) at patient's floor/unit and/or counseling patient:: 0 Critical Care Time Critical Care Time (minutes): 90
[2020-08-27 13:50] LABS: Appearance Urine HAZY; Color Urine YELLOW; Glucose Urine UA NEG (NEG); Leukocyte Esterase Urine NEG (NEG); Nitrite Urine NEG (NEG); PH >= 9.0 (5.0-8.0); Urine Blood 2+ (NEG); Urine Ketones NEG (NEG); Urine Protein 1+ MG/DL (NEG-TRACE)
[2020-08-27 13:56] LABS: Mucus Urine TRACE /LPF; RBC Urine 30-49 /HPF (0); Squamous Epithelial Cell Urine 1+ /LPF
[2020-08-27 13:58] LABS: Lactic Acid 1.9 mmol/L (0.5-2.0)
[2020-08-27] MEDS: methylPREDNISolone Sod Succ/PF 125 MG/2 ML VIAL 80 MG IVPUSH (14:23)
[2020-08-27] MEDS: Doxycycline Hyclate 100 MG in 0.9 % Sodium Chloride 250 ML 166.67 MG IV (14:23)
[2020-08-27] MEDS: Furosemide 20 MG/2 ML VIAL IVPUSH (14:24)
[2020-08-27 16:32] LABS: Glucose, Whole Blood 263 mg/dL (60-115)
[2020-08-27] MEDS: Famotidine/PF 20 MG/2 ML VIAL IVPUSH (20:27)
[2020-08-27] MEDS: Enoxaparin Sodium 40 MG/0.4 ML SYRINGE SUBCUT (20:27)
[2020-08-27] MEDS: Thiamine HCL 200 MG/2 ML VIAL IVPUSH (20:27)
[2020-08-27] MEDS: Insulin Glargine,Hum.rec.anlog 100 UNIT/ML 10 ML VIAL 20 UNIT SUBCUT (20:27)
[2020-08-27] MEDS: Insulin Lispro 100 UNIT/ML 3 ML VIAL SUBCUT (21:00)
[2020-08-27 22:15] LABS: Glucose, Whole Blood 306 mg/dL (60-115)
--- NOTE | 2020-08-27 22:23 | P.PCNCC_ITS ---
Procedures Central Line Placement A QUICK TIME-OUT WAS MADE FOR CLARIFICATION AND PROPER PATIENT IDENTIFICATION, PATIENT WAS POSITIONED, LANDMARKS WERE IDENTIFIED, US USED TO LOCATE A LARGE COMPRESSIBLE IJ. THE RIGHT NECK WAS WIDELY PREPPED AND DRAPED IN A FULL STERILE FASHION. ULTRASOUND WAS USED TO LOCATE AGAIN THE RIGHT IJ, THE VEIN WAS CANNUL ATED ON THE 1ST PASS WITH AN 18 GAUGE THIN NEEDLE, DARK NONPULSATILE BLOOD RETURN WAS OBTAINED. THE WIRE WAS THREADED, A SMALL INCISION WAS MADE AT ITS BASE AND DILATOR INSERTED. A TRIPLE-LUMEN CENTRAL VENOUS CATHETER WAS ADVANCED INTO THE VEIN UP TO THE HUB WITHOUT PROBLEMS, WIRED WAS REMOVED. PORTS HAD GOOD BLOOD RETURN AND FLUSHED X3. THE CATHETER WAS SECURED WITH 3 SUTURES AT 3 SITES, A BIOPATCH AND DRY STERILE DRESSING WERE APPLIED.POST PROCEDURE CHEST X- RAY SHOWED THE LINE TO BE IN GOOD POSITION WITHOUT PNEUMOTHORAX. NO BLEEDING OR COMPLICATIONS NOTED.: Consent for Procedure: Elective - informed consent obtained Time out performed: Yes Sterile Technique Used: Yes Patient placed on monitor/pulse ox: Yes MD prep: mask Central line prep: Povidone-Iodine 1% Local anesthesia used: other anesthetic (Dilaudid 0.5 mg x 1 IV ) Ultrasound used for placement: Yes Central line lumen inserted: single Post procedure: sutured in place, good blood return, all ports aspirated, flushed, capped and sterile dressing applied Post procedure x-ray: tip of catheter in good position Patient tolerated procedure: well Complications: none
[2020-08-27] MEDS: HYDROmorphone HCl 0.5 MG/0.5 ML SYRINGE IVPUSH (22:25)
[2020-08-28] VITALS (32 sets, daily range): BP systolic 107–145; BP diastolic 31–92; PULSE 72–108; RESP 16–34; TEMP 36.4–37.4; O2SAT 86–98
[2020-08-28] MEDS: Doxycycline Hyclate 100 MG in 0.9 % Sodium Chloride 250 ML 166.67 MG IV ×2 (00:04→13:36)
[2020-08-28] MEDS: methylPREDNISolone Sod Succ/PF 125 MG/2 ML VIAL 80 MG IVPUSH ×2 (00:04→13:36)
[2020-08-28 06:14] LABS: Basophils Percent Auto 0.1 % (0-2); Hematocrit 38.8 % (37-47); Hemoglobin 12.4 g/dl (12.0-16.0); Imm Gran Abs Auto 0.15 X10*3/uL (0.00-0.03); Imm Gran Pct Auto 1.2 % (0.0-0.4); Lymphocytes Absolute Auto 0.7 X10*3/uL (1.2-4.9); MANUAL DIFF FLAG SCAN; Mean Corpuscular Hemoglobin 26.3 pg (27.0-33.0); Mean Corpuscular Volume 82.4 fL (80-98); Mean Platelet Volume 9.6 fL (9.4-12.3); Monocytes Absolute Auto 0.1 X10*3/uL (0.1-1.2); Monocytes Percent Auto 0.9 % (2-11); Neutrophils Absolute Auto 11.4 X10*3/uL (2.0-8.3); Neutrophils Percent Auto 91.8 % (45-73); Platelet Count 194 X10*3/uL (160-400); Red Blood Count 4.71 X10*6/uL (4.20-5.50); Red Cell Distribution Width 12.4 % (11.0-16.0); SCAN SMEAR FLAG 1; White Blood Count 12.4 X10*3/uL (4.8-10.8)
[2020-08-28 06:48] LABS: SLIDE REVIEW VERIFIED
[2020-08-28 06:59] LABS: Anion Gap 13 (12-20); Blood Urea Nitrogen 23 mg/dL (9-16); C Reactive Protein 15.68 mg/dL (< or = 0.50); Calcium 8.3 mg/dL (8.4-10.2); Carbon Dioxide 27 mmol/L (22-29); Chloride 104 mmol/L (96-108); Creatinine Clr Calc Pharmacy 62.8; Estimated Glomerular Filt Rate > 60; Glucose Random 191 mg/dL (60-115); Magnesium 2.2 mg/dL (1.6-2.6); Phosphorus 2.8 mg/dL (2.7-4.5); Sodium 140 mmol/L (135-145)
[2020-08-28 07:07] LABS: D Dimer 36280 NG/ML
[2020-08-28 07:12] LABS: Procalcitonin 0.09 ng/mL
[2020-08-28 07:14] LABS: Ferritin 715 ng/mL (10-250)
[2020-08-28 07:25] LABS: Glucose, Whole Blood 200 mg/dL (60-115)
[2020-08-28 07:28] LABS: Base Excess VBG 0.2 mmol/L; HCO3 VBG 26 mmol/L; PCO2 VBG 46 mmHg; PO2 VBG 47 mmHg; pH VBG 7.35 (7.32-7.43)
--- NOTE | 2020-08-28 10:07 | MHC.CM.PN ---
pt lives alone in her apt. she is still in the icu and requiring 100% o2 via cpap at this time. pt does have children in the area. she will benefit from a PT eval when able to participate. depending on the results patient may benefit from going to [facility]. if pt is able then she may stay c one of her children and have vna at home. dc plan remains uncertain at this time. cm to cont. to follow.
[2020-08-28] MEDS: Famotidine/PF 20 MG/2 ML VIAL IVPUSH ×2 (10:30→22:08)
[2020-08-28] MEDS: Nystatin Powder 15 GM BOTTLE 1 APPL TOPICAL ×2 (10:30→22:19)
[2020-08-28] MEDS: Thiamine HCL 200 MG/2 ML VIAL IVPUSH ×2 (10:30→22:08)
[2020-08-28] MEDS: Morphine Sulfate 2 MG/ML CARTRIDGE 1 MG IVPUSH (10:44)
[2020-08-28] MEDS: Insulin Glargine,Hum.rec.anlog 100 UNIT/ML 10 ML VIAL 15 UNIT SUBCUT ×2 (10:44→22:08)
[2020-08-28 11:15] LABS: Glucose, Whole Blood 209 mg/dL (60-115)
--- NOTE | 2020-08-28 14:24 | US_ITS ---
EXAMINATION: US VENOUS ULTRASOUND WITH DOPPLER LOWER EXTREMITY, BILATERAL CLINICAL INFORMATION: Covid positive COMPARISON: None TECHNIQUE: Ultrasound of the deep veins is performed from the hip to the calf with compression sonography and color and pulse Doppler assessment. Spectral analysis with color-flow imaging is performed. FINDINGS: RIGHT: There is normal vascular flow demonstrated from the groin to the popliteal vein. Within the calf there is thrombus at the gastrocnemius vein extending into the lower saphenous vein. There is also thrombus in the proximal posterior tibial vein. LEFT: There is normal vascular flow demonstrated in the groin through the popliteal vein. Within the calf there is thrombus in the gastrocnemius vein extending into the lower saphenous vein. There is thrombus in the proximal to mid posterior tibial vein. US/US venous duplex LE BI IMPRESSION: Deep vein thrombosis involving the calf bilaterally. This critical result was discussed with Dr. Monico Camarillo on 08/28/2020, 10:22 PM and it was ascertained that the content and urgency of the report was understood at the time of direct communication.
--- NOTE | 2020-08-28 14:33 | PC.NURSE ---
pt alert and oriented to situation, napping throughout the day, pt remains on CPAP 15 and 100%, when mask comes off patient desats to 50's, NPO at this time, unable to take PO meds, MD aware, explained plan of care to patient and family. SR occasioanlly ST, BP stable, queen intact, pt bathed, barrier cream to coccyx, nystatin powder to fungal groin, pt repositioned q2h, will cont to monitor
--- NOTE | 2020-08-28 14:37 | PM.CCPN ---
Subjective Subjective Date of Service: 08/28/20 Interval History: Mrs. Varghese was admitted to the ICU on August 22 with hypoxemic respiratory failure secondary to COVID pneumonia. The patient is an 79-year-old lady with underlying history of ASCVD with angina, asthma/COPD, hypertension, diabetes mellitus, hyperlipidemia, and pulmonary nodules. She tested COVID positive on 08/14/2020 after having been symptomatic since approximately August 11. CXR on Aug 15 showed NAPD. [place] [facility] [place] with hypoxemia at home, Sat?s down to 68% on room air, and progressive dyspnea. Sat in ED improved to 88-91% on 12L NC. CTA showed no evidence of PE; there was diffuse emphysema with extensive severe reticular changes and honeycombing throughout, suggestive of chronic interstitial lung disease. By my reading, there may also be some subtle ground glass changes c/w COVID pneumonia. COVID 19 test was positive, biomarkers showed DDimer 371, ferritin 453, LDH 320, CRP 12.84. She was admitted and started on Decadron. Initial initially able to maintain oxygenation on high-flow nasal cannula. Worsening hypoxemia lead to initiation of CPAP support on 08/22 and transfer to ICU. Since Aug 23, she?s been on 100% FiO2 continuously, mostly by CPAP. Has not been able to come off CPAP to HFNC at all yesterday or today. See vital signs below. Yesterday had new low-grade temps up to 101.5 degrees. We started her on doxycycline and she?s been afebrile since then. We also bumped her steroids yest to Solumedrol 80mg bid, and added Pepcid and thiamine. This afternoon, she?s on facemask CPAP +15/100%. See Vital Signs below. RR 20-23, Vt 450cc, Ve down to 10L, Sat up to 95-96%. Venous blood gas this morning showed 7.35/46/+0 (base deficit down to 0 after Diamox yesterday). She has no JVD. Expiratory phase is normal. She has minimal accessory muscle use, work of breathing looks almost normal, other than that attributable to her respiratory rate. She has no gross edema. LABORATORY DATA: As below. Notably, white count today is down to 12. BUN/creat bumped slightly to 23/0.6 after the [place] [address]. Ferritin up to 715 CRP up slightly to 15. IMPRESSION: 1. Underlying baseline severe interstitial lung disease. 2. Bilateral acute COVID pneumonia. Upped her steroids and added Pepcid and thiamine. Unable to take Vit C and Vit D bec unable to take orals. (Was not a candidate for remdesivir or convalescent plasma -- presented too late. 3. Severe acute hypoxemic respiratory failure, secondary to the above. Supportive management with CPAP and opiates prn. Hold further diuresis. Can change to BiPAP if/when necessary. Considering pulse steroids, but her Sat is signif improved today, Ve is down, so maybe she?s turned the corner. 4. ID: New fever and bumped white count yesterday. Rule out bacterial superinfection. Blood cx?s negative so far. Started her on doxycycline, with subsequent resolution of fever, decr in WBC. 5. Diabetes. On Lantus plus sliding scale. Upped her Lantus to 15 mg bid. 6. Hypertension. On beta-blockers. Change to esmolol if unable to take po?s. 7. Coronary artery disease. Asymptomatic at present. Continue Plavix if/when able to take po?s. 8. Metabolic alkalosis. Resolved on Diamox. 9. Anticoagulation. Currently only standard dose Lovenox DVT prophylaxis. Prognosis is very guarded. Hard to believe she will survive this with the severity of her underlying lung disease. Central line placed last night by LIS Camarillo for IV access and resp monitoring. Critical care time: 50 minutes. Physical Exam Vital Signs: Vital Signs: Last Vital Signs Temp 99.0 F 08/28/20 14:00 Pulse 95 08/28/20 14:00 Resp 25 H 08/28/20 14:00 BP 128/61 08/28/20 14:00 Pulse Ox 95 08/28/20 14:00 Body Mass Index 27.3 Objective Data Labs CBC & Chem 7: 08/28/20 05:50 08/28/20 05:50 Labs: Laboratory Results - last 24 hr 08/27/20 08/27/20 08/28/20 16:27 20:45 05:49 WBC RBC Hgb Hct MCV MCH MCHC RDW Plt Count MPV Immature Gran % (Auto) Neut % (Auto) Lymph % (Auto) [place] % (Auto) Eos % (Auto) Baso % (Auto) Lymph # (Auto) [place] # (Auto) Eos # (Auto) Baso # (Auto) Abs Immat Gran (auto) Absolute Neuts (auto) Absolute Nucleated RBC Nucleated RBC % (auto) Smear Tech's Comments D-Dimer VBG pH VBG pCO2 VBG pO2 VBG HCO3 VBG O2 Saturation VBG Base Excess Sodium Potassium Chloride Carbon Dioxide Anion Gap BUN Creatinine Estim Creat Clear Calc Estimated GFR POC Glucose 263 H 306 H Random Glucose Calcium Phosphorus Magnesium Ferritin 715 H C-Reactive Protein Procalcitonin 08/28/20 08/28/20 08/28/20 05:49 05:49 05:50 WBC RBC Hgb Hct MCV MCH MCHC RDW Plt Count MPV Immature Gran % (Auto) Neut % (Auto) Lymph % (Auto) [place] % (Auto) Eos % (Auto) Baso % (Auto) Lymph # (Auto) [place] # (Auto) Eos # (Auto) Baso # (Auto) Abs Immat Gran (auto) Absolute Neuts (auto) Absolute Nucleated RBC Nucleated RBC % (auto) Smear Tech's Comments D-Dimer VBG pH Cancelled VBG pCO2 Cancelled VBG pO2 Cancelled VBG HCO3 Cancelled VBG O2 Saturation Cancelled VBG Base Excess Cancelled Sodium 140 Potassium 4.0 Chloride 104 Carbon Dioxide 27 Anion Gap 13 BUN 23 H Creatinine 0.62 Estim Creat Clear Calc 62.8 Estimated GFR > 60 POC Glucose Random Glucose 191 H D Calcium 8.3 L Phosphorus 2.8 Magnesium 2.2 Ferritin C-Reactive Protein 15.68 H Procalcitonin 0.09 08/28/20 08/28/20 08/28/20 05:50 05:50 07:17 WBC 12.4 H RBC 4.71 Hgb 12.4 Hct 38.8 MCV 82.4 MCH 26.3 L MCHC 32.0 RDW 12.4 Plt Count 194 MPV 9.6 Immature Gran % (Auto) 1.2 H Neut % (Auto) 91.8 H Lymph % (Auto) 6.0 L [place] % (Auto) 0.9 L Eos % (Auto) 0.0 Baso % (Auto) 0.1 Lymph # (Auto) 0.7 L [place] # (Auto) 0.1 Eos # (Auto) 0.0 Baso # (Auto) 0.0 Abs Immat Gran (auto) 0.15 H Absolute Neuts (auto) 11.4 H Absolute Nucleated RBC 0.000 Nucleated RBC % (auto) 0.0 Smear Tech's Comments VERIFIED D-Dimer 97066 VBG pH VBG pCO2 VBG pO2 VBG HCO3 VBG O2 Saturation VBG Base Excess Sodium Potassium Chloride Carbon Dioxide Anion Gap BUN Creatinine Estim Creat Clear Calc Estimated GFR POC Glucose 200 H Random Glucose Calcium Phosphorus Magnesium Ferritin C-Reactive Protein Procalcitonin 08/28/20 08/28/20 07:22 11:10 WBC RBC Hgb Hct MCV MCH MCHC RDW Plt Count MPV Immature Gran % (Auto) Neut % (Auto) Lymph % (Auto) [place] % (Auto) Eos % (Auto) Baso % (Auto) Lymph # (Auto) [place] # (Auto) Eos # (Auto) Baso # (Auto) Abs Immat Gran (auto) Absolute Neuts (auto) Absolute Nucleated RBC Nucleated RBC % (auto) Smear Tech's Comments D-Dimer VBG pH 7.35 VBG pCO2 46 VBG pO2 47 VBG HCO3 26 VBG O2 Saturation 76.0 VBG Base Excess 0.2 Sodium Potassium Chloride Carbon Dioxide Anion Gap BUN Creatinine Estim Creat Clear Calc Estimated GFR POC Glucose 209 H Random Glucose Calcium Phosphorus Magnesium Ferritin C-Reactive Protein Procalcitonin Microbiology Microbiology Results: Microbiology 08/27/20 13:24 Blood - Venous Blood Culture - Preliminary No growth after 24 hours. 08/20/20 10:59 Blood - Venous Blood Culture - Final No growth after 5 days. 08/20/20 10:55 Blood - Venous Blood Culture - Final No growth after 5 days. Progress Note: A&P Time Spent With Patient Time: Total time spent is greater than 50% in coordination of care (as documented) at patient's floor/unit and/or counseling patient: Total time spent with greater than 50% in coordination of care (as documented) at patient's floor/unit and/or counseling patient:: 0 Critical Care Time Critical Care Time (minutes): 60
--- NOTE | 2020-08-28 14:45 | CA_ITS ---
Transthoracic Echocardiogram Patient (Last, First, Middle): Ana Varghese, Gender: Female Date of : 1940 Age: 79 Procedure Date: 08/28/2020 Procedure Type: Transthoracic Echocardiogram Location: ICU Height: 154.94 cm Weight: 65.77 kg BSA: 1.65 m2 Heart Rate: bpm BP: 122 / 66 mmHg Song Lyricist: KALEIGH Referring MD: Samuel Baez Pest Management Supervisor: Lionel Mcdermott MD Symptoms: r/o pulmon embolism Study Quality: Fair ECG Rhythm: Sinus Conclusions: - 1. Hyperdynamic LV systolic function with impaired relaxation filling pattern 2. Trivial aortic regurgitation 3. Normal RV systolic pressure 4. No pericardial effusion Findings Left Ventricle Normal left ventricular cavity size. There is normal left ventricular wall thickness. The left ventricular systolic function is hyperdynamic. The visually estimated ejection fraction is >70%. Spectral Doppler is indicative of an impaired relaxation filling pattern. E/E prime ratio is between 8 and 15 consistent with indeterminate filling pressures. Right Ventricle The right ventricle was not well visualized. Atria The left atrium is normal in size. Interatrial shunt cannot be excluded. The right atrium was not well visualized. Aortic Valve The aortic valve was not well visualized. There is no aortic valve stenosis. There is trace (trivial) aortic valve regurgitation. Mitral Valve Likely normal mitral valve structure and function. There is trace mitral valve regurgitation. There is no mitral valve stenosis. Pulmonic Valve The pulmonic valve was not well visualized. Tricuspid Valve Likely normal tricuspid valve structure and function. There is trace tricuspid valve regurgitation. The right ventricular systolic pressure is normal. The right ventricular systolic pressure is 27 mmHg. There is no evidence of pulmonary hypertension. Great Vessels All visible segments of the aorta are normal in size. The pulmonary artery was not well visualized. Venous The inferior vena cava is normal in size and collapses greater than 50% with inspiration. Pericardium/Pleural There is no evidence of pericardial effusion. Prior Study Comparison No significant change compared to prior study. Measurements 2D Linear Measurements IVSd: 1.04 0.6-0.9/0.6-1.0 cm LVIDd: 2.57 3.9-5.3/4.2-5.9 cm LVIDd Index: 1.56 2.4-3.2/2.2-3.1 cm/m2 LVIDs: 1.68 2.0-3.6 cm LVPWd: 1.09 0.7-1.1 cm Ao Root: 3.30 2.1-3.5 cm LA Diam: 2.80 2.7-3.8/3.0-4.0 cm LAIDs Index: 1.70 1.5-2.3 cm/m2 LV Mass: 90.32 67-162/88-224 g LV Mass Index: 54.74 43-95/49-115 g/m2 LVOT Diam: 1.90 3.0+(-)1.3 cm Mitral Valve MV Pk E: 0.82 MV PK A: 1.02 MV Decel Time: 144.00 E/A: 0.80 E'Lateral: 3.09 E'Medial: 5.42 E/E' Med: 15.10 E/E' Lat: 26.50 PHT: 42.00 MVA PHT: 5.24 Decel [place]: 5.68 Aortic Valve AoV Pk [place]: 1.39 AoV Mn Paulino: 0.93 AoV VTI: 0.28 AoV Pk Grad: 8.00 Aov Mn Grad: 4.00 PIPPA Cont.VTI: 2.44 LVOT LVOT Pk [place]: 1.00 LVOT Mn [place]: 0.72 LVOT VTI: 0.24 LVOT Pk Grad: 4.00 LVOT Mn Grad: 2.00 LVOT Diam: 1.90 LVOT Area: 2.84 Diastolic Function MV Pk E: 0.82 MV Pk A: 1.02 E/A: 0.80 E'Medial: 5.42 E/E' Med: 15.10 E' Laterial: 3.09 E/E' Lat: 26.50 Tricuspid Valve TR Pk [place]: 2.45 TR Pk Grad: 24.00 RA Press: 3.00 RVSP: 27.00 Great Vessels Aorta Ao Root-2D: 3.30 2.0-3.7 cm Pulmonary Valve PV Pk Paulino: 1.03 Peak PV Grad: 4.00 Updated in Other Vendor System with Status of Final Lionel Mcdermott MD electronically signed on 08/28/2020 4:24:24 PM with status of Final
[2020-08-28] MEDS: 0.9 % Sodium Chloride Flush 3 ML SYRINGE IVFLUSH ×2 (18:09→22:09)
[2020-08-28] MEDS: Enoxaparin Sodium 40 MG/0.4 ML SYRINGE SUBCUT (18:09)
[2020-08-28 20:41] LABS: Appearance Urine HAZY; Color Urine YELLOW; Glucose Urine UA NEG (NEG); Leukocyte Esterase Urine NEG (NEG); Nitrite Urine NEG (NEG); Specific Gravity - Urine >= 1.030 (1.005-1.025); Urine Blood 3+ (NEG); Urine Ketones 15 MG/DL (NEG); Urine Protein NEG (NEG-TRACE)
[2020-08-28 20:47] LABS: RBC Urine TNTC /HPF (0); WBC Urine 0-2 /HPF (0-4)
[2020-08-28] MEDS: Insulin Lispro 100 UNIT/ML 3 ML VIAL SUBCUT (22:14)
[2020-08-28 22:17] LABS: Glucose, Whole Blood 269 mg/dL (60-115)
[2020-08-28] MEDS: Enoxaparin Sodium 30 MG/0.3 ML SYRINGE SUBCUT (22:38)
--- NOTE | 2020-08-28 23:13 | PC.NURSE ---
PT AWAKE AND ALERT. FOLLOWS COMMANDS APPROPRIATELY. IN BED WITH HOB UP 30-40 DEGREES. WAS ON CPAP FACEMASK BUT THIS WAS CHANGED TO HIGH FLOW NASAL CANNULA AT 2010 OF 100% AND 60 L WITH NRB MASK OVER IT. PT WAS REPOSITIONED PRIOR TO THIS CHANGE AND BACK CARE WAS GIVEN WITH C&DB DONE. PT WAS GIVEN MOUTH CARE WITH A SWAB AND MOUTH MOISTURIZER. ORAL MUCOSA IS VERY DRY. PT HAS A STRONG COUGH AND EXPECTORATED A LARGE THICK MUCOUS BOLUS. SHE IS TOLERATING THE HIGH FLOW AND MAINTAINING O2 SATS 85-94%. PER LIS DE DIOS, GOAL IS TO MAINTAIN O2 SAT >85%. SHE SUCTIONS SELF WITH YANKAUR SUCTION WHEN SHE CAN COUGH UP SPUTUM TO THE BACK OF HER THROAT. VITAL SIGNS STABLE. MONITOR SHOWS NSR, 80'S, RARE PVC. HR WILL GO UP TO 120'S WHEN COUGHING BUT COMES RIGHT BACK DOWN. PT DENIES PAIN. VENOUS DOPPLAR STUDY OF LOWER EXTREMITIES WAS DONE AND RADIOLOGIST REPORTED TO LIS DE DIOS POSITIVE DVT BILAT. LOVENOX SQ DOSE WAS INCREASED AND EXTRA DOSE WAS GIVEN.
[2020-08-29] VITALS (30 sets, daily range): BP systolic 107–138; BP diastolic 45–79; PULSE 77–132; RESP 16–29; TEMP 36.8–37.7; O2SAT 85–98
[2020-08-29] MEDS: methylPREDNISolone Sod Succ/PF 125 MG/2 ML VIAL 80 MG IVPUSH ×2 (02:25→13:13)
[2020-08-29] MEDS: Doxycycline Hyclate 100 MG in 0.9 % Sodium Chloride 250 ML 166.67 MG IV ×2 (02:25→13:16)
--- NOTE | 2020-08-29 03:23 | PC.NURSE ---
O2 SATS STARTED TO DROP WHILE PT WAS ON HIGH FLOW O2 AFTER SHE FELL ASLEEP. SATS LOW 82%. IT WAS AT THIS TIME PT WAS PUT BACK ON CPAP WITH THE SAME PREVIOUS SETTINGS OF 15 AND 100% O2. O2 SATS 92-96 WHILE PT ASLEEP. SHE WAS ON HIGH FLOW FROM 2009 TO 2339. SHE WAS ABLE TO HAVE MOUTH CARE WHILE ON HIGH FLOW AND EXPECTORATE THICK MOON SPUTUM. MOUTH CARE WAS DIFFICULT WITH CPAP BECAUSE PT WOULD DESAT TO 60'S-70'S IMMEDIATELY IF MASK WAS OFF. PT RESTING COMFORTABLE AT PRESENT. NO RESP DIFFICULTIES NOTED. O2 SAT CURRENTLY 96%.
[2020-08-29] MEDS: Enoxaparin Sodium 80 MG/0.8 ML SYRINGE 65 MG SUBCUT ×2 (05:55→17:02)
[2020-08-29 06:15] LABS: Basophils Percent Auto 0.1 % (0-2); Hematocrit 40.1 % (37-47); Hemoglobin 12.9 g/dl (12.0-16.0); Imm Gran Abs Auto 0.25 X10*3/uL (0.00-0.03); Imm Gran Pct Auto 1.3 % (0.0-0.4); Lymphocytes Absolute Auto 0.8 X10*3/uL (1.2-4.9); Lymphocytes Percent Auto 4.2 % (20-40); MANUAL DIFF FLAG SCAN; Mean Corpuscular HGB Conc 32.2 g/dl (31.0-35.0); Mean Corpuscular Hemoglobin 26.5 pg (27.0-33.0); Mean Corpuscular Volume 82.5 fL (80-98); Mean Platelet Volume 9.8 fL (9.4-12.3); Monocytes Absolute Auto 0.2 X10*3/uL (0.1-1.2); Monocytes Percent Auto 1.2 % (2-11); Neutrophils Absolute Auto 18.1 X10*3/uL (2.0-8.3); Neutrophils Percent Auto 93.2 % (45-73); Platelet Count 240 X10*3/uL (160-400); Red Blood Count 4.86 X10*6/uL (4.20-5.50); Red Cell Distribution Width 12.4 % (11.0-16.0); SCAN SMEAR FLAG 1; White Blood Count 19.4 X10*3/uL (4.8-10.8)
[2020-08-29 06:20] LABS: Base Excess VBG 9.8 mmol/L; HCO3 VBG 37 mmol/L; PCO2 VBG 60 mmHg; PO2 VBG 57 mmHg; pH VBG 7.39 (7.32-7.43)
[2020-08-29 06:36] LABS: Anion Gap 12 (12-20); Blood Urea Nitrogen 33 mg/dL (9-16); C Reactive Protein 6.63 mg/dL (< or = 0.50); Calcium 8.6 mg/dL (8.4-10.2); Carbon Dioxide 31 mmol/L (22-29); Chloride 109 mmol/L (96-108); Creatinine Clr Calc Pharmacy 64.9; Estimated Glomerular Filt Rate > 60; Glucose Random 126 mg/dL (60-115); Potassium 4.4 mmol/L (3.3-5.1); SLIDE REVIEW VERIFIED; Sodium 148 mmol/L (135-145)
[2020-08-29 06:58] LABS: Ferritin 820 ng/mL (10-250)
[2020-08-29 06:59] LABS: Procalcitonin 0.06 ng/mL
[2020-08-29 07:14] LABS: Glucose, Whole Blood 136 mg/dL (60-115)
[2020-08-29 07:30] LABS: D Dimer 23560 NG/ML
[2020-08-29 07:57] LABS: B Type Natriuretic Peptide 23 pg/mL (<100); Troponin-I High Sensitivity < 3.5 ng/L (<3.5-17.0)
[2020-08-29] MEDS: 0.9 % Sodium Chloride Flush 3 ML SYRINGE IVFLUSH ×2 (08:12→17:03)
[2020-08-29] MEDS: Famotidine/PF 20 MG/2 ML VIAL IVPUSH ×2 (08:12→19:24)
[2020-08-29] MEDS: Insulin Glargine,Hum.rec.anlog 100 UNIT/ML 10 ML VIAL 15 UNIT SUBCUT (08:12)
[2020-08-29] MEDS: Clopidogrel Bisulfate 75 MG TABLET PO (08:13)
[2020-08-29] MEDS: Cholecalciferol (Vitamin D3) 25 MCG TABLET 50 MCG PO (08:13)
[2020-08-29] MEDS: Ascorbic Acid 500 MG TABLET PO ×3 (08:13→19:25)
[2020-08-29] MEDS: Nystatin Powder 15 GM BOTTLE 1 APPL TOPICAL ×2 (08:57→19:25)
--- NOTE | 2020-08-29 10:27 | PM.CCPN ---
Subjective Subjective Date of Service: 08/29/20 Interval History: Mrs. Varghese was admitted to the ICU on August 22 with hypoxemic respiratory failure secondary to COVID pneumonia. The patient is an 79-year-old lady with underlying history of ASCVD with angina, asthma/COPD, hypertension, diabetes mellitus, hyperlipidemia, and pulmonary nodules. She tested COVID positive on 08/14/2020 after having been symptomatic since approximately August 11. CXR on Aug 15 showed NAPD. She was admitted to [facility] [place] on 08/20/2020 with hypoxemia at home, Sat?s down to 68% on room air, and progressive dyspnea. Sat in ED improved to 88-91% on 12L NC. 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 By my reading, there may also be some subtle ground glass changes c/w COVID pneumonia. COVID 19 test was positive, biomarkers showed DDimer 371, ferritin 453, LDH 320, CRP 12.84. She was admitted and started on Decadron. (Was not a candidate for remdesivir or convalescent plasma -- presented too late.) Initially able to maintain oxygenation on high-flow nasal cannula. Worsening hypoxemia lead to initiation of CPAP support on 08/22 and transfer to ICU. Since Aug 23, she?s been on 100% FiO2 continuously, mostly by CPAP. On Aug 27 we upped her steroids to Solu-Medrol 80 mg bid and added Pepcid and thiamine. Doxycycline was added because of new fevers. On Aug 27 and Aug 28 she was not able to come off CPAP to HFNC at all, but yesterday afternoon, her Sat was up and Ve was down significantly. She was able to change to HFNC with NRBFM last night. This morning she?s on HFNC 60L/100%. Only trivial accessory musc use and WOB. See vital signs below. RR is 20-25, with SpO2 88-92%. CVBG this morning showed 7.39/60/+9. Heart rate is 109, sinus rhythm. Blood pressure 133/45. She is afebrile since the doxycycline was started on August 27. This morning she is much more alert and animated than she was yesterday. She?s eating breakfast and having coffee. She?s currently watching television. She has no JVD. Expiratory phase is normal. She has no gross edema. LABORATORY DATA: As below. Notably, white count today is up to 19. BUN bumped further to 33, creat stable at 0[place] [address]. Ferritin up slightly, CRP is down, PCT is 0.06. Troponin and BNP both negative this morning. IMAGING: Duplex scan of her lower extremities last night showed bilateral calf DVT. She was started on full dose bid Lovenox. ECHO yesterday: Normal LV cavity size, wall thickness, systolic function is hyperdynamic, EF is >70%. Impaired relaxation filling pattern. RV probably normal size. No significant valvular dz. IVC normal in size w > 50% insp collapse. RVSP estimate 27mm. IMPRESSION: 1. Underlying baseline severe interstitial lung disease. 2. Bilateral acute COVID pneumonia. Upped her steroids and added Pepcid and thiamine. Added Vit C and Vit D and Zinc today bec she?s able to take orals 3. Severe acute hypoxemic respiratory failure, secondary to the above. Supportive management with CPAP and opiates prn. Hold further diuresis. Can change to BiPAP if necessary. Considering pulse steroids, but w her Sat signif improved and Ve down, no reason to do so now. 4. ID: New fever and bumped white count on Aug 27. Started her on doxycycline, with subsequent resolution of fever, and improved resp parameters. It?s possible she had a bacterial or atypical infection. BC?s were negative, screening u/a negative. I?ve sent mycoplasma and Legionella titers. 5. DVT. Increased to full dose Lovenox. 6. Diabetes. On Lantus plus sliding scale. I upped her Lantus further to 20 mg bid. 7. Hypertension. On beta-blockers. Restart metoprolol, now that she?s able to take orals. 8. Coronary artery disease. Asymptomatic at present. Continue Plavix. 9. Metabolic alkalosis. Restart oral Diamox today. Prognosis is guarded, but we?re heartened to see the improvement over the last 24 hrs. Critical care time: 50 minutes. Physical Exam Vital Signs: Vital Signs: Last Vital Signs Temp 99.0 F 08/29/20 10:00 Pulse 103 H 08/29/20 10:00 Resp 20 08/29/20 10:00 BP 133/45 L 08/29/20 10:00 Pulse Ox 93 08/29/20 10:00 Body Mass Index 27.3 Objective Data Labs CBC & Chem 7: 08/29/20 06:00 08/29/20 06:00 Labs: Laboratory Results - last 24 hr 08/28/20 08/28/20 08/28/20 11:10 22:11 Unknown WBC RBC Hgb Hct MCV MCH MCHC RDW Plt Count MPV Immature Gran % (Auto) Neut % (Auto) Lymph % (Auto) [place] % (Auto) Eos % (Auto) Baso % (Auto) Lymph # (Auto) [place] # (Auto) Eos # (Auto) Baso # (Auto) Abs Immat Gran (auto) Absolute Neuts (auto) Absolute Nucleated RBC Nucleated RBC % (auto) Smear Tech's Comments D-Dimer VBG pH VBG pCO2 VBG pO2 VBG HCO3 VBG O2 Saturation VBG Base Excess Sodium Potassium Chloride Carbon Dioxide Anion Gap BUN Creatinine Estim Creat Clear Calc Estimated GFR POC Glucose 209 H 269 H Random Glucose Calcium Ferritin Troponin I High Sens C-Reactive Protein B-Natriuretic Peptide Procalcitonin Urine Color YELLOW Urine Appearance HAZY Urine pH 6.0 Ur Specific [place] >= 1.030 H Urine Protein NEG Urine Glucose (UA) NEG Urine Ketones 15 Urine Blood 3+ H Urine Nitrite NEG Ur Leukocyte Esterase NEG Urine RBC TNTC H Urine WBC 0-2 Ur Squamous Epith Cells NONE Urine Bacteria NONE Urine Yeast 3+ 08/29/20 08/29/20 08/29/20 06:00 06:00 06:00 WBC 19.4 H RBC 4.86 Hgb 12.9 Hct 40.1 MCV 82.5 MCH 26.5 L MCHC 32.2 RDW 12.4 Plt Count 240 MPV 9.8 Immature Gran % (Auto) 1.3 H Neut % (Auto) 93.2 H Lymph % (Auto) 4.2 L [place] % (Auto) 1.2 L Eos % (Auto) 0.0 Baso % (Auto) 0.1 Lymph # (Auto) 0.8 L [place] # (Auto) 0.2 Eos # (Auto) 0.0 Baso # (Auto) 0.0 Abs Immat Gran (auto) 0.25 H Absolute Neuts (auto) 18.1 H Absolute Nucleated RBC 0.000 Nucleated RBC % (auto) 0.0 Smear Tech's Comments VERIFIED D-Dimer 19176 VBG pH VBG pCO2 VBG pO2 VBG HCO3 VBG O2 Saturation VBG Base Excess Sodium 148 H Potassium 4.4 Chloride 109 H Carbon Dioxide 31 H Anion Gap 12 BUN 33 H Creatinine 0.60 Estim Creat Clear Calc 64.9 Estimated GFR > 60 POC Glucose Random Glucose 126 H Calcium 8.6 Ferritin 820 H Troponin I High Sens C-Reactive Protein 6.63 H B-Natriuretic Peptide Procalcitonin Urine Color Urine Appearance Urine pH Ur Specific [place] Urine Protein Urine Glucose (UA) Urine Ketones Urine Blood Urine Nitrite Ur Leukocyte Esterase Urine RBC Urine WBC Ur Squamous Epith Cells Urine Bacteria Urine Yeast 08/29/20 08/29/20 08/29/20 06:00 06:00 07:09 WBC RBC Hgb Hct MCV MCH MCHC RDW Plt Count MPV Immature Gran % (Auto) Neut % (Auto) Lymph % (Auto) [place] % (Auto) Eos % (Auto) Baso % (Auto) Lymph # (Auto) [place] # (Auto) Eos # (Auto) Baso # (Auto) Abs Immat Gran (auto) Absolute Neuts (auto) Absolute Nucleated RBC Nucleated RBC % (auto) Smear Tech's Comments D-Dimer VBG pH 7.39 VBG pCO2 60 VBG pO2 57 VBG HCO3 37 VBG O2 Saturation 87.0 VBG Base Excess 9.8 Sodium Potassium Chloride Carbon Dioxide Anion Gap BUN Creatinine Estim Creat Clear Calc Estimated GFR POC Glucose 136 H Random Glucose Calcium Ferritin Troponin I High Sens C-Reactive Protein B-Natriuretic Peptide Procalcitonin 0.06 Urine Color Urine Appearance Urine pH Ur Specific [place] Urine Protein Urine Glucose (UA) Urine Ketones Urine Blood Urine Nitrite Ur Leukocyte Esterase Urine RBC Urine WBC Ur Squamous Epith Cells Urine Bacteria Urine Yeast 08/29/20 07:20 WBC RBC Hgb Hct MCV MCH MCHC RDW Plt Count MPV Immature Gran % (Auto) Neut % (Auto) Lymph % (Auto) [place] % (Auto) Eos % (Auto) Baso % (Auto) Lymph # (Auto) [place] # (Auto) Eos # (Auto) Baso # (Auto) Abs Immat Gran (auto) Absolute Neuts (auto) Absolute Nucleated RBC Nucleated RBC % (auto) Smear Tech's Comments D-Dimer VBG pH VBG pCO2 VBG pO2 VBG HCO3 VBG O2 Saturation VBG Base Excess Sodium Potassium Chloride Carbon Dioxide Anion Gap BUN Creatinine Estim Creat Clear Calc Estimated GFR POC Glucose Random Glucose Calcium Ferritin Troponin I High Sens < 3.5 D C-Reactive Protein B-Natriuretic Peptide 23 Procalcitonin Urine Color Urine Appearance Urine pH Ur Specific [place] Urine Protein Urine Glucose (UA) Urine Ketones Urine Blood Urine Nitrite Ur Leukocyte Esterase Urine RBC Urine WBC Ur Squamous Epith Cells Urine Bacteria Urine Yeast Microbiology Microbiology Results: Microbiology 08/27/20 13:24 Blood - Venous Blood Culture - Preliminary No growth after 24 hours. 08/27/20 13:24 Blood - Venous Blood Culture - Preliminary No growth after 24 hours. 08/20/20 10:59 Blood - Venous Blood Culture - Final No growth after 5 days. 08/20/20 10:55 Blood - Venous Blood Culture - Final No growth after 5 days. Progress Note: A&P Time Spent With Patient Time: Total time spent is greater than 50% in coordination of care (as documented) at patient's floor/unit and/or counseling patient: Total time spent with greater than 50% in coordination of care (as documented) at patient's floor/unit and/or counseling patient:: 0 Critical Care Time Critical Care Time (minutes): 60
[2020-08-29] MEDS: Insulin Lispro 100 UNIT/ML 3 ML VIAL SUBCUT ×3 (11:18→19:37)
[2020-08-29] MEDS: Thiamine HCL 200 MG/2 ML VIAL IVPUSH ×2 (11:18→19:25)
[2020-08-29 11:45] LABS: Glucose, Whole Blood 353 mg/dL (60-115)
[2020-08-29] MEDS: acetaZOLAMIDE 250 MG TABLET PO ×2 (13:14→19:24)
[2020-08-29] MEDS: Metoprolol Tartrate 25 MG TABLET PO ×2 (13:14→19:24)
[2020-08-29] MEDS: Zinc Sulfate 220 MG CAPSULE PO (13:15)
--- NOTE | 2020-08-29 15:07 | MHC.CM.PN ---
Review of EMR: pt making progress towards recovery: original d/c plan is dependent on pt's physical capabilty to manage at home. Call placed to pt's dtr/HCP Tiana [phone] x 3 varied times throughout the day: busy: Call placed to pt's secondary contact, Marimar: message left to have Marimar contact [facility] CM to revisit d/c plan. Referral placed to [facility] in the event pt can return to home with skilled RN visits. CM to follow
[2020-08-29 16:32] LABS: Glucose, Whole Blood 273 mg/dL (60-115)
[2020-08-29 19:37] LABS: Glucose, Whole Blood 276 mg/dL (60-115)
[2020-08-29] MEDS: Insulin Glargine,Hum.rec.anlog 100 UNIT/ML 10 ML VIAL 20 UNIT SUBCUT (19:37)
[2020-08-30] VITALS (33 sets, daily range): BP systolic 103–131; BP diastolic 35–68; PULSE 76–122; RESP 18–32; TEMP 37.1–38.6; O2SAT 83–95
[2020-08-30] MEDS: methylPREDNISolone Sod Succ/PF 125 MG/2 ML VIAL 80 MG IVPUSH ×2 (00:45→14:24)
[2020-08-30] MEDS: Doxycycline Hyclate 100 MG in 0.9 % Sodium Chloride 250 ML 166.67 MG IV ×2 (00:45→14:21)
[2020-08-30] MEDS: 0.9 % Sodium Chloride Flush 3 ML SYRINGE IVFLUSH ×4 (00:46→21:52)
[2020-08-30] MEDS: Enoxaparin Sodium 80 MG/0.8 ML SYRINGE 65 MG SUBCUT ×2 (05:18→17:29)
[2020-08-30 05:19] LABS: Basophils Percent Auto 0.1 % (0-2); Hematocrit 39.2 % (37-47); Hemoglobin 12.4 g/dl (12.0-16.0); Imm Gran Abs Auto 0.17 X10*3/uL (0.00-0.03); Imm Gran Pct Auto 0.9 % (0.0-0.4); Lymphocytes Absolute Auto 1.2 X10*3/uL (1.2-4.9); Lymphocytes Percent Auto 5.9 % (20-40); MANUAL DIFF FLAG SCAN; Mean Corpuscular HGB Conc 31.6 g/dl (31.0-35.0); Mean Corpuscular Hemoglobin 26.3 pg (27.0-33.0); Mean Corpuscular Volume 83.2 fL (80-98); Mean Platelet Volume 9.9 fL (9.4-12.3); Monocytes Absolute Auto 0.4 X10*3/uL (0.1-1.2); Monocytes Percent Auto 1.8 % (2-11); Neutrophils Absolute Auto 18.2 X10*3/uL (2.0-8.3); Neutrophils Percent Auto 91.3 % (45-73); Platelet Count 278 X10*3/uL (160-400); Red Blood Count 4.71 X10*6/uL (4.20-5.50); Red Cell Distribution Width 12.4 % (11.0-16.0); SCAN SMEAR FLAG 1; White Blood Count 19.9 X10*3/uL (4.8-10.8)
[2020-08-30 05:27] LABS: Base Excess VBG -0.1 mmol/L; HCO3 VBG 22 mmol/L; PCO2 VBG 31 mmHg; PO2 VBG 60 mmHg; pH VBG 7.46 (7.32-7.43)
[2020-08-30 05:39] LABS: SLIDE REVIEW VERIFIED
[2020-08-30 05:41] LABS: Anion Gap 13 (12-20); Blood Urea Nitrogen 30 mg/dL (9-16); Calcium 8.5 mg/dL (8.4-10.2); Carbon Dioxide 25 mmol/L (22-29); Chloride 110 mmol/L (96-108); Creatinine Clr Calc Pharmacy 62.8; Estimated Glomerular Filt Rate > 60; Glucose Random 164 mg/dL (60-115); Potassium 3.7 mmol/L (3.3-5.1); Sodium 144 mmol/L (135-145)
[2020-08-30 05:55] LABS: D Dimer 6630 NG/ML
--- NOTE | 2020-08-30 06:31 | PC.NURSE ---
A&Ox3. SPA only. Membership Manager at bedside to facilitate assessment/education. On highflow 100%/69 LPM at start of shift, satting low-mid 90's, respirations unlabored. Switched to CPAP @ 2000 with good effect. Able to titrate fio2 down to 80%. Patient tolerating short breaks for sips of H20 and mouth care. Redness to groin, and buttocks (blanchable)- nystatin and barrier cream applied.
[2020-08-30 07:11] LABS: Glucose, Whole Blood 107 mg/dL (60-115)
[2020-08-30] MEDS: Famotidine/PF 20 MG/2 ML VIAL IVPUSH ×2 (08:22→21:51)
[2020-08-30] MEDS: Nystatin Powder 15 GM BOTTLE 1 APPL TOPICAL ×2 (08:22→21:52)
[2020-08-30] MEDS: Thiamine HCL 200 MG/2 ML VIAL IVPUSH ×2 (08:22→21:51)
[2020-08-30] MEDS: Insulin Glargine,Hum.rec.anlog 100 UNIT/ML 10 ML VIAL 20 UNIT SUBCUT ×2 (08:23→21:51)
[2020-08-30] MEDS: Zinc Sulfate 220 MG CAPSULE PO (08:23)
[2020-08-30] MEDS: Ascorbic Acid 500 MG TABLET PO ×3 (08:23→21:51)
[2020-08-30] MEDS: acetaZOLAMIDE 250 MG TABLET PO (08:23)
[2020-08-30] MEDS: Metoprolol Tartrate 25 MG TABLET PO ×2 (08:23→21:50)
[2020-08-30] MEDS: Clopidogrel Bisulfate 75 MG TABLET PO (08:23)
[2020-08-30] MEDS: Cholecalciferol (Vitamin D3) 25 MCG TABLET 50 MCG PO (08:24)
[2020-08-30 09:02] LABS: Glucose, Whole Blood 349 mg/dL (60-115)
[2020-08-30 09:18] LABS: Procalcitonin 0.04 ng/mL
[2020-08-30 11:43] LABS: Glucose, Whole Blood 86 mg/dL (60-115)
[2020-08-30 16:12] LABS: Glucose, Whole Blood 138 mg/dL (60-115)
--- NOTE | 2020-08-30 16:24 | P.PNCC_ITS ---
Subjective Subjective Date of Service: 08/30/20 Interval History: Mrs. Varghese was admitted to the ICU on August 22 with hypoxemic respiratory failure secondary to COVID pneumonia. The patient is an 79-year-old lady with underlying history of ASCVD with angina, asthma/COPD, hypertension, diabetes mellitus, hyperlipidemia, and pulmonary nodules. She tested COVID positive on 08/14/2020 after having been symptomatic since approximately August 11. CXR on Aug 15 showed NAPD. She was admitted to [facility] on 08/20/2020 with hypoxemia at home, Sat?s down to 68% on room air, and progressive dyspnea. Sat in ED improved to 88-91% on 12L NC. 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 By my reading, there may also be some subtle ground glass changes c/w COVID pneumonia. COVID 19 test was positive, biomarkers showed DDimer 371, ferritin 453, LDH 320, CRP 12.84. She was admitted and started on Decadron. (Was not a candidate for remdesivir or convalescent plasma -- presented too late.) Initially able to maintain oxygenation on high-flow nasal cannula. Worsening hypoxemia lead to initiation of CPAP support on 08/22 and transfer to ICU. Since Aug 23, she?s been on 100% FiO2 continuously, mostly by CPAP. On Aug 27 we upped her steroids to Solu-Medrol 80 mg bid and added Pepcid and thiamine. Doxycycline was added because of new fevers. On Aug 28 Sat?s improved and Ve came down. She was able to come off CPAP to HFNC w NRBFM that night. A Duplex scan of her LEs showed bilat calf DVT. Her Lovenox was increased to 1mg/kg bid. Did well on Aug 29 on HFNC most of the day. Able to east breakfast, lunch and dinner. Spent the night last night on CPAP +15/80%. This morning switched over to HFNC 60L/100%. Sat?s have been mid-high 80?s all day, but she?s comfortable. No accessory musc use, only increased WOB attributa ble to her respiratory rate. See Vital Signs below. RR is 18-28. CVBG this morning showed 7.46/31/0. She was afebrile for almost 3 days since the doxycycline was started on August 27, but started having low grade temps again this morning, up to 101.5?. She remains alert though, and eating br eakfast and lunch with gusto. She has no JVD. Expiratory phase is normal. She has no gross edema. LABORATORY DATA: As below. Notably, white count is steady. BUN/creat steady. DDimer is down to 6600. Ferritin up slightly, CRP down further, PCT is 0.04. Trop and BNP were negative on Aug 28. ECHO Aug 28: Normal LV cavity size, wall thickness, systolic function is hyperdynamic, EF is >70%. Impaired relaxation filling pattern. RV probably normal size. No significant valvular dz. IVC normal in size w > 50% insp collapse. RVSP estimate 27mm. IMPRESSION: 1. Underlying baseline severe interstitial lung disease. 2. Bilateral acute COVID pneumonia. Upped her steroids and added Pepcid and thiamine. Added Vit C and Vit D and Zinc. 3. Severe acute hypoxemic respiratory failure, secondary to the above. She fulfills criteria for ARDS. Supportive management with CPAP and opiates prn. Hold further diuresis. Can change to BiPAP if necessary. Considering pulse steroids, d/w Dr. Moran. 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 No real value to pulsing her. 4. ID: Fulfills criteria for viral sepsis. The fever and white count she had on Aug 27 responded well to doxycycline, with subsequent resolution of fever, and improved resp parameters. It?s possible she had a bacterial or atypical infection. BC?s were negative, screening u/a negative. I?ve sent mycoplasma and Legionella titers. But now she has new fever. Reculturing. No change in abx at this point. 5. DVT. Increased to full dose Lovenox. PE unlikely (or at least clinically insignificant), based on echo, troponin, and BNP. 6. Diabetes. On Lantus plus sliding scale. I upped her Lantus further to 20 mg bid, resulting in much improved POCs. 7. Hypertension. On beta-blockers. Restarted metoprolol now that she?s able to take orals. 8. Coronary artery disease. Asymptomatic at present. Continuing Plavix. 9. Metabolic alkalosis. Resolved after Diamox. Prognosis is guarded, but we?re heartened that at least she came off CPAP. Critical care time: 50 minutes. Physical Exam Vital Signs: Vital Signs: Last Vital Signs Temp 101.5 F H 08/30/20 16:00 Pulse 114 H 08/30/20 16:00 Resp 24 H 08/30/20 16:00 BP 126/59 L 08/30/20 16:00 Pulse Ox 85 L 08/30/20 16:00 Body Mass Index 27.3 Objective Data Labs CBC & Chem 7: 08/30/20 05:04 08/30/20 05:04 Labs: Laboratory Results - last 24 hr 08/29/20 08/29/20 08/29/20 11:13 16:22 19:30 WBC RBC Hgb Hct MCV MCH MCHC RDW Plt Count MPV Immature Gran % (Auto) Neut % (Auto) Lymph % (Auto) [place] % (Auto) Eos % (Auto) Baso % (Auto) Lymph # (Auto) [place] # (Auto) Eos # (Auto) Baso # (Auto) Abs Immat Gran (auto) Absolute Neuts (auto) Absolute Nucleated RBC Nucleated RBC % (auto) Smear Tech's Comments D-Dimer VBG pH VBG pCO2 VBG pO2 VBG HCO3 VBG O2 Saturation VBG Base Excess Sodium Potassium Chloride Carbon Dioxide Anion Gap BUN Creatinine Estim Creat Clear Calc Estimated GFR POC Glucose 349 H 273 H 276 H Random Glucose Calcium C-Reactive Protein Procalcitonin 08/30/20 08/30/20 08/30/20 05:04 05:04 05:04 WBC 19.9 H RBC 4.71 Hgb 12.4 Hct 39.2 MCV 83.2 MCH 26.3 L MCHC 31.6 RDW 12.4 Plt Count 278 MPV 9.9 Immature Gran % (Auto) 0.9 H Neut % (Auto) 91.3 H Lymph % (Auto) 5.9 L [place] % (Auto) 1.8 L Eos % (Auto) 0.0 Baso % (Auto) 0.1 Lymph # (Auto) 1.2 [place] # (Auto) 0.4 Eos # (Auto) 0.0 Baso # (Auto) 0.0 Abs Immat Gran (auto) 0.17 H Absolute Neuts (auto) 18.2 H Absolute Nucleated RBC 0.000 Nucleated RBC % (auto) 0.0 Smear Tech's Comments VERIFIED D-Dimer 6630 VBG pH VBG pCO2 VBG pO2 VBG HCO3 VBG O2 Saturation VBG Base Excess Sodium 144 Potassium 3.7 Chloride 110 H Carbon Dioxide 25 Anion Gap 13 BUN 30 H Creatinine 0.62 Estim Creat Clear Calc 62.8 Estimated GFR > 60 POC Glucose Random Glucose 164 H Calcium 8.5 C-Reactive Protein 2.90 H Procalcitonin 08/30/20 08/30/20 08/30/20 05:04 05:04 07:07 WBC RBC Hgb Hct MCV MCH MCHC RDW Plt Count MPV Immature Gran % (Auto) Neut % (Auto) Lymph % (Auto) [place] % (Auto) Eos % (Auto) Baso % (Auto) Lymph # (Auto) [place] # (Auto) Eos # (Auto) Baso # (Auto) Abs Immat Gran (auto) Absolute Neuts (auto) Absolute Nucleated RBC Nucleated RBC % (auto) Smear Tech's Comments D-Dimer VBG pH 7.46 H VBG pCO2 31 VBG pO2 60 VBG HCO3 22 VBG O2 Saturation 92.0 VBG Base Excess -0.1 Sodium Potassium Chloride Carbon Dioxide Anion Gap BUN Creatinine Estim Creat Clear Calc Estimated GFR POC Glucose 107 Random Glucose Calcium C-Reactive Protein Procalcitonin 0.04 08/30/20 08/30/20 11:39 16:05 WBC RBC Hgb Hct MCV MCH MCHC RDW Plt Count MPV Immature Gran % (Auto) Neut % (Auto) Lymph % (Auto) [place] % (Auto) Eos % (Auto) Baso % (Auto) Lymph # (Auto) [place] # (Auto) Eos # (Auto) Baso # (Auto) Abs Immat Gran (auto) Absolute Neuts (auto) Absolute Nucleated RBC Nucleated RBC % (auto) Smear Tech's Comments D-Dimer VBG pH VBG pCO2 VBG pO2 VBG HCO3 VBG O2 Saturation VBG Base Excess Sodium Potassium Chloride Carbon Dioxide Anion Gap BUN Creatinine Estim Creat Clear Calc Estimated GFR POC Glucose 86 138 H Random Glucose Calcium C-Reactive Protein Procalcitonin Microbiology Microbiology Results: Microbiology 08/27/20 13:24 Blood - Venous Blood Culture - Preliminary No growth after 48 hours. 08/27/20 13:24 Blood - Venous Blood Culture - Preliminary No growth after 48 hours. 08/20/20 10:59 Blood - Venous Blood Culture - Final No growth after 5 days. 08/20/20 10:55 Blood - Venous Blood Culture - Final No growth after 5 days. Progress Note: A&P Time Spent With Patient Time: Total time spent is greater than 50% in coordination of care (as docume nted) at patient's floor/unit and/or counseling patient: Total time spent with greater than 50% in coordination of care (as documented) at patient's floor/unit and/or counseling patient:: 0 Critical Care Time Critical Care Time (minutes): 60
--- NOTE | 2020-08-30 16:46 | PC.NURSE ---
Addendum entered by Zuleyka Samuel RN 08/30/20 18:26: CRITICAL LACTIC OF 3.1. MD NOTIFIED AND ORDERED A BOLUS 1/2 NS AT 250 ML X 2 HOURS. 02 DROPPING TO 80-82%. CHANGED BACK TO CPAP 15 AT 90% AT 1825. 02 NOW 91%. WILL CONTINUE TO MONITOR. Original Note: TMAX 101.5 W/ CORE TEMP AND HR 120S ON TELE, MD NOTIFIED. MD ORDERED AND COLLECTED BC X 2, URINE SAMPLE, SPUTUM SAMPLE, AND LACTIC ACID. WILL CONTINUE TO MONITOR. CPAP 15 ON 80% WHILE SLEEPING, CHANGED TO HIGH FLOW 100%/60L DURING THE DAY TO MAINTAIN 02 GOAL > 85% PER MD. FAMILY UPDATED MULTIPLE TIMES THROUGHOUT THE DAY BY THIS RN.
[2020-08-30 16:49] LABS: Glucose Urine UA NEG (NEG); Leukocyte Esterase Urine NEG (NEG); Nitrite Urine NEG (NEG); Specific Gravity - Urine 1.015 (1.005-1.025); Urine Blood 3+ (NEG); Urine Ketones NEG (NEG); Urine Protein NEG (NEG-TRACE)
[2020-08-30 16:50] LABS: Appearance Urine CLOUDY; Color Urine YELLOW
[2020-08-30 16:57] LABS: Amorphous Sediment Urine 1+ /LPF; Bacteria Urine 1+ /LPF; RBC Urine 50-75 /HPF (0); WBC Urine 0 /HPF (0-4)
[2020-08-30 17:19] LABS: Lactic Acid 3.1 mmol/L (0.5-2.0)
[2020-08-30 17:35] LABS: Cancel Lactic Acid Canceled
[2020-08-30 21:17] LABS: Glucose, Whole Blood 210 mg/dL (60-115)
[2020-08-30] MEDS: Insulin Lispro 100 UNIT/ML 3 ML VIAL SUBCUT (21:51)
[2020-08-31] VITALS (28 sets, daily range): BP systolic 102–140; BP diastolic 45–85; PULSE 74–108; RESP 14–30; TEMP 36.2–37.6; O2SAT 82–95
[2020-08-31] MEDS: Doxycycline Hyclate 100 MG in 0.9 % Sodium Chloride 250 ML 166.67 MG IV ×2 (00:29→14:14)
[2020-08-31] MEDS: methylPREDNISolone Sod Succ/PF 125 MG/2 ML VIAL 80 MG IVPUSH ×2 (00:29→14:14)
[2020-08-31 05:22] LABS: Basophils Percent Auto 0.1 % (0-2); Hemoglobin 12.1 g/dl (12.0-16.0); Imm Gran Abs Auto 0.12 X10*3/uL (0.00-0.03); Imm Gran Pct Auto 0.7 % (0.0-0.4); Lymphocytes Absolute Auto 0.7 X10*3/uL (1.2-4.9); Lymphocytes Percent Auto 4.2 % (20-40); MANUAL DIFF FLAG SCAN; Mean Corpuscular HGB Conc 31.8 g/dl (31.0-35.0); Mean Corpuscular Volume 81.7 fL (80-98); Monocytes Absolute Auto 0.1 X10*3/uL (0.1-1.2); Monocytes Percent Auto 0.4 % (2-11); Neutrophils Absolute Auto 15.2 X10*3/uL (2.0-8.3); Neutrophils Percent Auto 94.6 % (45-73); Platelet Count 241 X10*3/uL (160-400); Red Blood Count 4.65 X10*6/uL (4.20-5.50); Red Cell Distribution Width 12.6 % (11.0-16.0); SCAN SMEAR FLAG 1; White Blood Count 16.1 X10*3/uL (4.8-10.8)
[2020-08-31 05:46] LABS: Lactic Acid 1.3 mmol/L (0.5-2.0)
[2020-08-31 05:50] LABS: Anion Gap 11 (12-20); Blood Urea Nitrogen 25 mg/dL (9-16); C Reactive Protein 8.58 mg/dL (< or = 0.50); Calcium 7.8 mg/dL (8.4-10.2); Carbon Dioxide 24 mmol/L (22-29); Chloride 111 mmol/L (96-108); Creatinine Clr Calc Pharmacy 68.3; Estimated Glomerular Filt Rate > 60; Glucose Random 141 mg/dL (60-115); Sodium 142 mmol/L (135-145)
[2020-08-31] MEDS: Enoxaparin Sodium 80 MG/0.8 ML SYRINGE 65 MG SUBCUT ×2 (05:55→17:52)
[2020-08-31] MEDS: 0.9 % Sodium Chloride Flush 3 ML SYRINGE IVFLUSH ×2 (08:32→17:07)
[2020-08-31] MEDS: Insulin Lispro 100 UNIT/ML 3 ML VIAL SUBCUT (08:32)
[2020-08-31] MEDS: Famotidine/PF 20 MG/2 ML VIAL IVPUSH (08:33)
[2020-08-31] MEDS: Metoprolol Tartrate 25 MG TABLET PO (08:33)
[2020-08-31] MEDS: Cholecalciferol (Vitamin D3) 25 MCG TABLET 50 MCG PO (08:33)
[2020-08-31] MEDS: Ascorbic Acid 500 MG TABLET PO (08:33)
[2020-08-31] MEDS: Zinc Sulfate 220 MG CAPSULE PO (08:33)
[2020-08-31] MEDS: Thiamine HCL 200 MG/2 ML VIAL IVPUSH (08:33)
[2020-08-31] MEDS: Insulin Glargine,Hum.rec.anlog 100 UNIT/ML 10 ML VIAL 20 UNIT SUBCUT (08:35)
[2020-08-31] MEDS: Clopidogrel Bisulfate 75 MG TABLET PO (08:35)
[2020-08-31] MEDS: Nystatin Powder 15 GM BOTTLE 1 APPL TOPICAL (08:36)
[2020-08-31 09:12] LABS: SLIDE REVIEW VERIFIED
[2020-08-31 10:30] LABS: Glucose, Whole Blood 160 mg/dL (60-115)
[2020-08-31 11:23] LABS: Glucose, Whole Blood 147 mg/dL (60-115)
--- NOTE | 2020-08-31 11:59 | P.PNCC_ITS ---
Subjective Subjective Date of Service: 08/31/20 Interval History: Mrs. Varghese was admitted to the ICU on August 22 with hypoxemic respiratory failure secondary to COVID pneumonia. The patient is an 79-year-old lady with underlying history of ASCVD with angina, asthma/COPD, hypertension, diabetes mellitus, hyperlipidemia, and pulmonary nodules. She tested COVID positive on 08/14/2020 after having been symptomatic since approximately August 11. CXR on Aug 15 showed NAPD. She was admitted to [facility] on 08/20/2020 with hypoxemia at home, Sat?s down to 68% on room air, and progressive dyspnea. Sat in ED improved to 88-91% on 12L NC. 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 By my reading, there may also be some subtle ground glass changes c/w COVID pneumonia. COVID 19 test was positive, biomarkers showed DDimer 371, ferritin 453, LDH 320, CRP 12.84. She was admitted and started on Decadron. (Was not a candidate for remdesivir or convalescent plasma -- presented too late.) Initially able to maintain oxygenation on high-flow nasal cannula. Worsening hypoxemia lead to initiation of CPAP support on 08/22 and transfer to ICU. For the next few days she was on 100% FiO2 continuously, mostly by CPAP. On Aug 27 we upped her steroids to Solu-Medrol 80 mg bid and added Pepcid and thiamine. Doxycycline was added because of new fevers. On Aug 28, her Sat?s improved and Ve came down. She was able to come off CPAP to HFNC w NRBFM that night. A Duplex scan of her LEs showed bilat calf DVT. Her Lovenox was increased to 1mg/kg bid. Last two days she?s been doing well on HFNC during the day and CPAP at night.Did well on Aug 29 on HFNC most of the day. Able to east breakfast, lunch and dinner. FiO2 on CPAP las night was down to 75%. This morning switched when she switched over to HFNC, she required the addition of the NRBFM. Currently, on HFNC 60L/100% + NRBFM @ 15L, Sat?s are mid-high 80?s. See Vital Signs below. RR is 22-26, no accessory musc use, excellent excursion, only increased WOB attributable to her respiratory rate. She ran a low grade temp up to 101.5? for six hours yest afternoon, but has been afebrile since. She continues on doxycycline since August 27. Looks more washed out today compared w yesterday. She has no JVD. Expiratory phase is normal. She has no gross edema. LABORATORY DATA: As below. Notably, white count is down slightly. BUN/creat down slightly. CRP up to 8. MICROBIOLOGY: Blood cultures from 08/30 are negative. Sputum Gram stain from 08/30 shows 1+ polys and 2+ Gram-positive cocci. Culture negative so far. Screening urinalysis from 08/30 was negative. SEROLOGIES: Legionella urinary antigen and mycoplasma titers are pending. ECHO Aug 28: Normal LV cavity size, wall thickness, systolic function is hyperdynamic, EF is >70%. Impaired relaxation filling pattern. RV probably normal size. No significant valvular dz. IVC normal in size w > 50% insp collapse. RVSP estimate 27mm. IMPRESSION: 1. Underlying baseline severe interstitial lung disease. 2. Bilateral acute COVID pneumonia. On Solu-Medrol 80 mg bid, plus Pepcid, thiamine, Vit C, Vit D, and Zinc. 3. Severe acute hypoxemic respiratory failure, secondary to the above. She fulfills [place] criteria for ARDS. Supportive management with CPAP and opiates prn. Hold further diuresis. Can change to BiPAP if necessary. 4. ID: Fulfills criteria for viral sepsis. The fever and white count she had on Aug 27 responded well to doxycycline, with subsequent resolution of fever, and improved resp parameters, but she had recurrent low grade fever yesterday. All cultures negative so far; serologies are pending. We?ll continue the doxycycline for now. 5. DVT. On full dose Lovenox. PE unlikely (or at least clinically insignificant), based on echo, troponin, and BNP. 6. Diabetes. On Lantus plus sliding scale. I?ll up her Lantus further to 25 units bid. 7. Hypertension. On beta-blockers. Restarted metoprolol. 8. Coronary artery disease. Asymptomatic at present. Continuing Plavix. 9. Metabolic alkalosis. Resolved after Diamox. Prognosis remains guarded. Critical care time: 50 minutes. Physical Exam Vital Signs: Vital Signs: Last Vital Signs Temp 99.5 F 08/31/20 11:00 Pulse 78 08/31/20 11:00 Resp 21 H 08/31/20 11:00 BP 140/59 H 08/31/20 11:00 Pulse Ox 89 L 08/31/20 11:00 Body Mass Index 27.3 Objective Data Labs CBC & Chem 7: 08/31/20 05:09 08/31/20 05:09 Labs: Laboratory Results - last 24 hr 08/30/20 08/30/20 08/30/20 16:05 16:35 16:45 WBC RBC Hgb Hct MCV MCH MCHC RDW Plt Count MPV Immature Gran % (Auto) Neut % (Auto) Lymph % (Auto) [place] % (Auto) Eos % (Auto) Baso % (Auto) Lymph # (Auto) [place] # (Auto) Eos # (Auto) Baso # (Auto) Abs Immat Gran (auto) Absolute Neuts (auto) Absolute Nucleated RBC Nucleated RBC % (auto) Smear Tech's Comments Sodium Potassium Chloride Carbon Dioxide Anion Gap BUN Creatinine Estim Creat Clear Calc Estimated GFR POC Glucose 138 H Random Glucose Lactic Acid 3.1 H* Calcium C-Reactive Protein Urine Color YELLOW Urine Appearance CLOUDY Urine pH 8.0 Ur Specific [place] 1.015 Urine Protein NEG Urine Glucose (UA) NEG Urine Ketones NEG Urine Blood 3+ H Urine Nitrite NEG Ur Leukocyte Esterase NEG Urine RBC 50-75 H Urine WBC 0 Ur Squamous Epith Cells NONE Amorphous Sediment 1+ Urine Bacteria 1+ Urine Yeast 3+ 08/30/20 08/30/20 08/31/20 21:12 22:06 05:09 WBC 16.1 H RBC 4.65 Hgb 12.1 Hct 38.0 MCV 81.7 MCH 26.0 L MCHC 31.8 RDW 12.6 Plt Count 241 MPV 10.0 Immature Gran % (Auto) 0.7 H Neut % (Auto) 94.6 H Lymph % (Auto) 4.2 L [place] % (Auto) 0.4 L Eos % (Auto) 0.0 Baso % (Auto) 0.1 Lymph # (Auto) 0.7 L [place] # (Auto) 0.1 Eos # (Auto) 0.0 Baso # (Auto) 0.0 Abs Immat Gran (auto) 0.12 H Absolute Neuts (auto) 15.2 H Absolute Nucleated RBC 0.000 Nucleated RBC % (auto) 0.0 Smear Tech's Comments VERIFIED Sodium Potassium Chloride Carbon Dioxide Anion Gap BUN Creatinine Estim Creat Clear Calc Estimated GFR POC Glucose 210 H Random Glucose Lactic Acid 2.0 Calcium C-Reactive Protein Urine Color Urine Appearance Urine pH Ur Specific [place] Urine Protein Urine Glucose (UA) Urine Ketones Urine Blood Urine Nitrite Ur Leukocyte Esterase Urine RBC Urine WBC Ur Squamous Epith Cells Amorphous Sediment Urine Bacteria Urine Yeast 08/31/20 08/31/20 08/31/20 05:09 05:09 08:16 WBC RBC Hgb Hct MCV MCH MCHC RDW Plt Count MPV Immature Gran % (Auto) Neut % (Auto) Lymph % (Auto) [place] % (Auto) Eos % (Auto) Baso % (Auto) Lymph # (Auto) [place] # (Auto) Eos # (Auto) Baso # (Auto) Abs Immat Gran (auto) Absolute Neuts (auto) Absolute Nucleated RBC Nucleated RBC % (auto) Smear Tech's Comments Sodium 142 Potassium 4.0 Chloride 111 H Carbon Dioxide 24 Anion Gap 11 L BUN 25 H Creatinine 0.57 Estim Creat Clear Calc 68.3 Estimated GFR > 60 POC Glucose 160 H Random Glucose 141 H Lactic Acid 1.3 Calcium 7.8 L D C-Reactive Protein 8.58 H Urine Color Urine Appearance Urine pH Ur Specific [place] Urine Protein Urine Glucose (UA) Urine Ketones Urine Blood Urine Nitrite Ur Leukocyte Esterase Urine RBC Urine WBC Ur Squamous Epith Cells Amorphous Sediment Urine Bacteria Urine Yeast 08/31/20 11:19 WBC RBC Hgb Hct MCV MCH MCHC RDW Plt Count MPV Immature Gran % (Auto) Neut % (Auto) Lymph % (Auto) [place] % (Auto) Eos % (Auto) Baso % (Auto) Lymph # (Auto) [place] # (Auto) Eos # (Auto) Baso # (Auto) Abs Immat Gran (auto) Absolute Neuts (auto) Absolute Nucleated RBC Nucleated RBC % (auto) Smear Tech's Comments Sodium Potassium Chloride Carbon Dioxide Anion Gap BUN Creatinine Estim Creat Clear Calc Estimated GFR POC Glucose 147 H Random Glucose Lactic Acid Calcium C-Reactive Protein Urine Color Urine Appearance Urine pH Ur Specific [place] Urine Protein Urine Glucose (UA) Urine Ketones Urine Blood Urine Nitrite Ur Leukocyte Esterase Urine RBC Urine WBC Ur Squamous Epith Cells Amorphous Sediment Urine Bacteria Urine Yeast Microbiology Microbiology Results: Microbiology 08/30/20 16:35 Sputum - Suctioned Gram Stain - Final 08/27/20 13:24 Blood - Venous Blood Culture - Preliminary No growth after 48 hours. 08/27/20 13:24 Blood - Venous Blood Culture - Preliminary No growth after 48 hours. 08/20/20 10:59 Blood - Venous Blood Culture - Final No growth after 5 days. 08/20/20 10:55 Blood - Venous Blood Culture - Final No growth after 5 days. Progress Note: A&P Time Spent With Patient Time: Total time spent is greater than 50% in coordination of care (as documented) at patient's floor/unit and/or counseling patient: Total time spent with greater than 50% in coordination of care (as documented) at patient's floor/unit and/or counseling patient:: 0 Critical Care Time Critical Care Time (minutes): 60
--- NOTE | 2020-08-31 15:00 | MHC.CM.PN ---
Call placed to grand daughter Jenna who has been the family contact manager for pt. Jenna is a SW in [place] at a [employer] hospital and is fluent in Lithuanian and Greenlandic. Discussed goals of care at d/c: Jenna states her two aunts, Tiana and Katia are able to provide 24/7 care for pt when she is discharged. They prefer pt to return to home vs STR. Jenna notes that pt was very independent at home prior to admission with ? services for light housekeeping. Family assisted pt with any care needs including transportation. CM requested a conference call with Jenna and pt's daughters to review d/c plan and answer any questions they may have. We will discuss on Thursday, 2.8 at 1pm. CM to contact Jenna at # listed.
--- NOTE | 2020-08-31 15:01 | PC.NURSE ---
Pt A&Ox3, on highflow at 60L/min FiO2 100% and NRB fully open 100%, lung sounds clear. Intermittent cough with thick white sputum, suctioned with yankeur, on doxycycline Pt intermittently desat as low as 70% at times. RR 23. Pt ate breakfast with assist to maintain oxygenation, only ate 15%. Pt NSR 90s, BP stable. No edema. Khoury cath in place, urine output 325ml [id number] clear yellow. Fungal rash groin bilat nystatin given. coccyx red, blanchable barrier cream applied, skin dry. Pt had BM this shift soft stool on bed holm. At 1400 pt placed back on CPAP 10 FiO2 80%, SaO2 87%.
[2020-08-31 17:14] LABS: Glucose, Whole Blood 47 mg/dL (60-115)
[2020-08-31 17:14] LABS: Glucose, Whole Blood 46 mg/dL (60-115)
[2020-08-31 22:02] LABS: Glucose, Whole Blood 86 mg/dL (60-115)
[2020-09-01] VITALS (38 sets, daily range): BP systolic 113–148; BP diastolic 48–89; PULSE 80–118; RESP 14–37; TEMP 37–37.9; O2SAT 80–92
[2020-09-01] MEDS: Nystatin Powder 15 GM BOTTLE 1 APPL TOPICAL ×3 (01:44→22:18)
[2020-09-01] MEDS: methylPREDNISolone Sod Succ/PF 125 MG/2 ML VIAL 80 MG IVPUSH ×2 (02:29→12:40)
[2020-09-01] MEDS: 0.9 % Sodium Chloride Flush 3 ML SYRINGE IVFLUSH ×3 (02:29→17:06)
[2020-09-01] MEDS: Doxycycline Hyclate 100 MG in 0.9 % Sodium Chloride 250 ML 166.67 MG IV ×2 (02:30→12:40)
[2020-09-01] MEDS: Enoxaparin Sodium 80 MG/0.8 ML SYRINGE 65 MG SUBCUT ×2 (05:43→18:46)
[2020-09-01 05:53] LABS: Base Excess VBG 7.2 mmol/L; HCO3 VBG 32 mmol/L; PCO2 VBG 48 mmHg; PO2 VBG 43 mmHg; pH VBG 7.43 (7.32-7.43)
[2020-09-01 05:54] LABS: Basophils Percent Auto 0.1 % (0-2); Hematocrit 37.8 % (37-47); Hemoglobin 12.3 g/dl (12.0-16.0); Imm Gran Abs Auto 0.18 X10*3/uL (0.00-0.03); Lymphocytes Absolute Auto 0.7 X10*3/uL (1.2-4.9); Lymphocytes Percent Auto 3.6 % (20-40); MANUAL DIFF FLAG SCAN; Mean Corpuscular HGB Conc 32.5 g/dl (31.0-35.0); Mean Corpuscular Hemoglobin 26.3 pg (27.0-33.0); Mean Corpuscular Volume 80.8 fL (80-98); Mean Platelet Volume 10.2 fL (9.4-12.3); Monocytes Absolute Auto 0.2 X10*3/uL (0.1-1.2); Neutrophils Absolute Auto 17.7 X10*3/uL (2.0-8.3); Neutrophils Percent Auto 94.3 % (45-73); Platelet Count 307 X10*3/uL (160-400); Red Blood Count 4.68 X10*6/uL (4.20-5.50); Red Cell Distribution Width 12.7 % (11.0-16.0); SCAN SMEAR FLAG 1; White Blood Count 18.7 X10*3/uL (4.8-10.8)
[2020-09-01 06:19] LABS: SLIDE REVIEW VERIFIED
[2020-09-01 06:20] LABS: Alanine Aminotransferase 28 U/L (0-31); Albumin Level 2.7 g/dL (3.5-5.0); Alkaline Phosphatase 136 U/L (39-117); Anion Gap 12 (12-20); Aspartate Amino Transferase 25 U/L (5-31); Bilirubin Total 0.9 mg/dL (0.0-1.0); Blood Urea Nitrogen 21 mg/dL (9-16); C Reactive Protein 4.12 mg/dL (< or = 0.50); Carbon Dioxide 27 mmol/L (22-29); Chloride 109 mmol/L (96-108); Creatinine Clr Calc Pharmacy 74.9; Estimated Glomerular Filt Rate > 60; Glucose Random 121 mg/dL (60-115); Magnesium 2.2 mg/dL (1.6-2.6); Phosphorus 2.2 mg/dL (2.7-4.5); Sodium 144 mmol/L (135-145); Total Protein 5.6 g/dL (6.5-8.0)
[2020-09-01 06:30] LABS: D Dimer 7005 NG/ML
[2020-09-01 06:39] LABS: Ferritin 870 ng/mL (10-250)
[2020-09-01 07:30] LABS: Glucose, Whole Blood 145 mg/dL (60-115)
[2020-09-01] MEDS: Metoprolol Tartrate 25 MG TABLET PO ×2 (08:46→20:05)
[2020-09-01] MEDS: Cholecalciferol (Vitamin D3) 25 MCG TABLET 50 MCG PO (08:47)
[2020-09-01] MEDS: Famotidine/PF 20 MG/2 ML VIAL IVPUSH ×2 (08:47→20:02)
[2020-09-01] MEDS: Ascorbic Acid 500 MG TABLET PO ×3 (08:47→20:05)
[2020-09-01] MEDS: Thiamine HCL 200 MG/2 ML VIAL IVPUSH ×2 (08:48→20:01)
[2020-09-01] MEDS: Insulin Glargine,Hum.rec.anlog 100 UNIT/ML 10 ML VIAL 25 UNIT SUBCUT ×2 (08:48→22:16)
[2020-09-01] MEDS: Zinc Sulfate 220 MG CAPSULE PO (08:48)
[2020-09-01] MEDS: Clopidogrel Bisulfate 75 MG TABLET PO (08:48)
[2020-09-01 11:29] LABS: Glucose, Whole Blood 307 mg/dL (60-115)
[2020-09-01] MEDS: Insulin Lispro 100 UNIT/ML 3 ML VIAL SUBCUT ×3 (11:56→22:17)
--- NOTE | 2020-09-01 12:25 | PM.CCPN ---
Subjective Subjective Date of Service: 09/01/20 Interval History: Mrs. Varghese was admitted to the ICU on August 22 with hypoxemic respiratory failure secondary to COVID pneumonia. The patient is an 79-year-old lady with underlying history of ASCVD with angina, asthma/COPD, hypertension, diabetes mellitus, hyperlipidemia, and pulmonary nodules. She tested COVID positive on 08/14/2020 after having been symptomatic since approximately August 11. CXR on Aug 15 showed NAPD. She was admitted to [facility] [place] on 08/20/2020 with hypoxemia at home, Sat?s down to 68% on room air, and progressive dyspnea. Sat in ED improved to 88-91% on 12L NC. 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 By my reading, there may also be some subtle ground glass changes c/w COVID pneumonia. COVID 19 test was positive, biomarkers showed DDimer 371, ferritin 453, LDH 320, CRP 12.84. She was admitted and started on Decadron. (Was not a candidate for remdesivir or convalescent plasma -- presented too late.) Initially able to maintain oxygenation on high-flow nasal cannula. Worsening hypoxemia lead to initiation of CPAP support on 08/22 and transfer to ICU. For the next few days she was on 100% FiO2 continuously, mostly by CPAP. On Aug 27 we upped her steroids to Solu-Medrol 80 mg bid and added Pepcid and thiamine. Doxycycline was added because of new fevers. On Aug 28, her Sat?s improved and Ve came down. She was able to come off CPAP to HFNC w NRBFM that night. A Duplex scan of her LEs showed bilat calf DVT. Her Lovenox was increased to 1mg/kg bid. Last three days she?s been doing well on HFNC during the day, +/- NRBFM, and CPAP at night. Able to east breakfast, lunch and dinner. Demands her coffee in the morning. Last night, FiO2 on CPAP las night was down to 80% early on, but had to be bumped up to 100% this morning. And since the switchover to HFNC this morning, she?s needed the addition of the NRBFM most of the day. She?s been able to drink some of her coffee and eat some breakfast and lunch though. See Vital Signs below. Currently on HFNC 60L/100% + NRBFM @ 15L, Sat?s are steady at 85%. RR has been 21-29, maybe trivial accessory musc use, good excursion, minor increased WOB attributable to her respiratory rate. Central venous blood gas this morning showed 7.43/48/+7. She was afebrile yesterday, today is running 99.4-100.2?. She continues on doxycycline since August 27. Looks a little more animated today than yesterday. She has no JVD. Expiratory phase is normal. She has no gross edema. LABORATORY DATA: As below. Notably, BUN/creat down slightly. D-dimer and ferritin steady, CRP is down. MICROBIOLOGY: Blood cultures from 08/30 are negative. Sputum Gram stain from 08/30 shows 1+ polys and 2+ Gram-positive cocci. Culture grew mixed resp james. Screening urinalysis from 08/30 was negative. SEROLOGIES: Legionella urinary antigen and mycoplasma titers are pending. ECHO Aug 28: Normal LV cavity size, wall thickness, systolic function is hyperdynamic, EF is >70%. Impaired relaxation filling pattern. RV probably normal size. No significant valvular dz. IVC normal in size w > 50% insp collapse. RVSP estimate 27mm. IMPRESSION: 1. Underlying baseline severe interstitial lung disease. 2. Bilateral acute COVID pneumonia. On Solu-Medrol 80 mg bid, plus Pepcid, thiamine, Vit C, Vit D, and Zinc. 3. Severe acute hypoxemic respiratory failure, secondary to the above. She fulfills [place] criteria for ARDS. Supportive management with CPAP and opiates prn. Hold further diuresis. Can up to BiPAP if necessary. 4. ID: Fulfills criteria for viral sepsis. The fever and white count she had on Aug 27 responded well to doxycycline, with subsequent resolution of fever, and improved resp parameters, but she had recurrent low grade fever yesterday and today. All cultures negative so far; serologies are pending. We?ll continue the doxycycline for now. 5. DVT. On full dose Lovenox. PE unlikely (or at least clinically insignificant), based on echo, troponin, and BNP. 6. Diabetes. On Lantus plus sliding scale. Episode of hypoglycemia to the 40?s yesterday. Dropped her Lantus back down to 15 units bid. 7. Hypertension. On beta-blockers. Restarted metoprolol. 8. Coronary artery disease. Asymptomatic at present. Continuing Plavix. 9. Metabolic alkalosis. Restart Diamox 250 mg tid. Prognosis is very guarded. Critical care time: 50 minutes. Physical Exam Vital Signs: Vital Signs: Last Vital Signs Temp 99.9 F 09/01/20 11:00 Pulse 86 09/01/20 11:00 Resp 29 H 09/01/20 11:36 BP 127/60 09/01/20 11:00 Pulse Ox 84 L 09/01/20 11:00 Body Mass Index 27.3 Objective Data Labs CBC & Chem 7: 09/01/20 05:40 09/01/20 05:40 Labs: Laboratory Results - last 24 hr 08/31/20 08/31/20 08/31/20 16:42 16:44 21:46 WBC RBC Hgb Hct MCV MCH MCHC RDW Plt Count MPV Immature Gran % (Auto) Neut % (Auto) Lymph % (Auto) [place] % (Auto) Eos % (Auto) Baso % (Auto) Lymph # (Auto) [place] # (Auto) Eos # (Auto) Baso # (Auto) Abs Immat Gran (auto) Absolute Neuts (auto) Absolute Nucleated RBC Nucleated RBC % (auto) Smear Tech's Comments D-Dimer VBG pH VBG pCO2 VBG pO2 VBG HCO3 VBG O2 Saturation VBG Base Excess Sodium Potassium Chloride Carbon Dioxide Anion Gap BUN Creatinine Estim Creat Clear Calc Estimated GFR POC Glucose 47 L* 46 L* 86 Random Glucose Calcium Phosphorus Magnesium Ferritin Total Bilirubin AST ALT Alkaline Phosphatase C-Reactive Protein Total Protein Albumin 09/01/20 09/01/20 09/01/20 05:40 05:40 05:40 WBC 18.7 H RBC 4.68 Hgb 12.3 Hct 37.8 MCV 80.8 MCH 26.3 L MCHC 32.5 RDW 12.7 Plt Count 307 D MPV 10.2 Immature Gran % (Auto) 1.0 H Neut % (Auto) 94.3 H Lymph % (Auto) 3.6 L [place] % (Auto) 1.0 L Eos % (Auto) 0.0 Baso % (Auto) 0.1 Lymph # (Auto) 0.7 L [place] # (Auto) 0.2 Eos # (Auto) 0.0 Baso # (Auto) 0.0 Abs Immat Gran (auto) 0.18 H Absolute Neuts (auto) 17.7 H Absolute Nucleated RBC 0.000 Nucleated RBC % (auto) 0.0 Smear Tech's Comments VERIFIED D-Dimer 7005 VBG pH VBG pCO2 VBG pO2 VBG HCO3 VBG O2 Saturation VBG Base Excess Sodium 144 Potassium 4.0 Chloride 109 H Carbon Dioxide 27 Anion Gap 12 BUN 21 H Creatinine 0.52 Estim Creat Clear Calc 74.9 Estimated GFR > 60 POC Glucose Random Glucose 121 H Calcium 8.0 L Phosphorus 2.2 L Magnesium 2.2 Ferritin 870 H Total Bilirubin 0.9 AST 25 ALT 28 Alkaline Phosphatase 136 H D C-Reactive Protein 4.12 H Total Protein 5.6 L Albumin 2.7 L 09/01/20 09/01/20 09/01/20 05:40 07:26 11:21 WBC RBC Hgb Hct MCV MCH MCHC RDW Plt Count MPV Immature Gran % (Auto) Neut % (Auto) Lymph % (Auto) [place] % (Auto) Eos % (Auto) Baso % (Auto) Lymph # (Auto) [place] # (Auto) Eos # (Auto) Baso # (Auto) Abs Immat Gran (auto) Absolute Neuts (auto) Absolute Nucleated RBC Nucleated RBC % (auto) Smear Tech's Comments D-Dimer VBG pH 7.43 VBG pCO2 48 VBG pO2 43 VBG HCO3 32 VBG O2 Saturation 74.0 VBG Base Excess 7.2 Sodium Potassium Chloride Carbon Dioxide Anion Gap BUN Creatinine Estim Creat Clear Calc Estimated GFR POC Glucose 145 H 307 H Random Glucose Calcium Phosphorus Magnesium Ferritin Total Bilirubin AST ALT Alkaline Phosphatase C-Reactive Protein Total Protein Albumin Microbiology Microbiology Results: Microbiology 08/27/20 13:24 Blood - Venous Blood Culture - Final No growth after 5 days. 08/30/20 16:35 Sputum - Suctioned Gram Stain - Final 08/30/20 16:35 Sputum - Suctioned Sputum Culture - Final 08/30/20 16:44 Blood - Venous Blood Culture - Preliminary No growth after 24 hours. 08/30/20 16:44 Blood - Venous Blood Culture - Preliminary No growth after 24 hours. 08/27/20 13:24 Blood - Venous Blood Culture - Preliminary No growth after 48 hours. 08/20/20 10:59 Blood - Venous Blood Culture - Final No growth after 5 days. 08/20/20 10:55 Blood - Venous Blood Culture - Final No growth after 5 days. Progress Note: A&P Time Spent With Patient Time: Total time spent is greater than 50% in coordination of care (as documented) at patient's floor/unit and/or counseling patient: Total time spent with greater than 50% in coordination of care (as documented) at patient's floor/unit and/or counseling patient:: 0 Critical Care Time Critical Care Time (minutes): 60
[2020-09-01] MEDS: Morphine Sulfate 2 MG/ML CARTRIDGE 1 MG IVPUSH (15:00)
[2020-09-01] MEDS: acetaZOLAMIDE 250 MG TABLET PO ×2 (15:01→20:06)
[2020-09-01 16:51] LABS: Glucose, Whole Blood 211 mg/dL (60-115)
[2020-09-01 19:07] LABS: Legionella Ag Urine Not Detected (Not Detected)
[2020-09-01 20:48] LABS: Glucose, Whole Blood 167 mg/dL (60-115)
[2020-09-02] VITALS (30 sets, daily range): BP systolic 105–146; BP diastolic 44–118; PULSE 71–119; RESP 16–34; TEMP 36.6–37.6; O2SAT 86–95
[2020-09-02] MEDS: 0.9 % Sodium Chloride Flush 3 ML SYRINGE IVFLUSH ×3 (00:33→16:25)
[2020-09-02] MEDS: Doxycycline Hyclate 100 MG in 0.9 % Sodium Chloride 250 ML 166.67 MG IV ×2 (00:44→13:00)
[2020-09-02] MEDS: methylPREDNISolone Sod Succ/PF 125 MG/2 ML VIAL 80 MG IVPUSH ×2 (00:45→12:59)
[2020-09-02] MEDS: Enoxaparin Sodium 80 MG/0.8 ML SYRINGE 65 MG SUBCUT ×2 (05:25→17:17)
[2020-09-02 07:37] LABS: Glucose, Whole Blood 128 mg/dL (60-115)
[2020-09-02] MEDS: Clopidogrel Bisulfate 75 MG TABLET PO (07:41)
[2020-09-02] MEDS: acetaZOLAMIDE 250 MG TABLET PO (07:41)
[2020-09-02] MEDS: Famotidine/PF 20 MG/2 ML VIAL IVPUSH ×2 (07:41→20:41)
[2020-09-02] MEDS: Metoprolol Tartrate 25 MG TABLET PO ×2 (07:41→20:41)
[2020-09-02] MEDS: Insulin Glargine,Hum.rec.anlog 100 UNIT/ML 10 ML VIAL 25 UNIT SUBCUT (09:15)
[2020-09-02 10:17] LABS: Base Excess VBG 0.3 mmol/L; HCO3 VBG 25 mmol/L; PCO2 VBG 44 mmHg; PO2 VBG 54 mmHg; pH VBG 7.37 (7.32-7.43)
[2020-09-02 10:35] LABS: Lactic Acid 1.4 mmol/L (0.5-2.0)
[2020-09-02 10:38] LABS: D Dimer 3593 NG/ML
[2020-09-02 10:46] LABS: Blood Urea Nitrogen 25 mg/dL (9-16); Calcium 8.1 mg/dL (8.4-10.2); Estimated Glomerular Filt Rate > 60; Glucose Random 253 mg/dL (60-115); Magnesium 2.2 mg/dL (1.6-2.6); Phosphorus 2.7 mg/dL (2.7-4.5)
[2020-09-02 10:57] LABS: Anion Gap 13 (12-20); Carbon Dioxide 24 mmol/L (22-29); Chloride 113 mmol/L (96-108); Potassium 3.8 mmol/L (3.3-5.1); Sodium 146 mmol/L (135-145)
[2020-09-02 11:14] LABS: Procalcitonin 0.03 ng/mL
[2020-09-02 11:31] LABS: Glucose, Whole Blood 296 mg/dL (60-115)
[2020-09-02] MEDS: Thiamine HCL 200 MG/2 ML VIAL IVPUSH ×2 (11:42→20:41)
[2020-09-02] MEDS: Insulin Lispro 100 UNIT/ML 3 ML VIAL SUBCUT ×2 (11:42→20:42)
[2020-09-02] MEDS: Nystatin Powder 15 GM BOTTLE 1 APPL TOPICAL ×2 (11:42→20:41)
--- NOTE | 2020-09-02 13:54 | P.PNCC_ITS ---
Subjective Subjective Date of Service: 09/02/20 Interval History: Mrs. Varghese was admitted to the ICU on August 22 with hypoxemic respiratory failure secondary to COVID pneumonia. The patient is an 79-year-old lady with underlying history of ASCVD with angina, asthma/COPD, hypertension, diabetes mellitus, hyperlipidemia, and pulmonary nodules. She tested COVID positive on 08/14/2020 after having been symptomatic since approximately August 11. CXR on Aug 15 showed no acute disease. She was admitted to [facility] [place] on 08/20/2020 with hypoxemia at home, Sat?s down to 60?s on room air, and progressive dyspnea. Sat in ED improved to 88-91% on 12L NC. 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 By my reading, there were also be some subtle ground glass changes c/w COVID pneumonia. COVID 19 test was positive, biomarkers showed DDimer 371, ferritin 453, LDH 320, CRP 12.84. She was admitted and started on Decadron. (Was not a candidate for remdesivir or convalescent plasma -- presented too late.) Initially able to maintain oxygenation on high-flow nasal cannula. Worsening hypoxemia lead to initiation of CPAP support on 08/22 and transfer to ICU. For the next few days she was on 100% FiO2 continuously, mostly by CPAP. On Aug 27 we upped her steroids to Solu-Medrol 80 mg bid and added Pepcid and thiamine. Doxycycline was added because of new fevers. On Aug 28, her Sat?s improved and Ve came down. She was able to come off CPAP to HFNC w NRBFM. A Duplex scan of her LEs showed bilat calf DVT. Her Lovenox was increased to 1mg/kg bid. In subsequent days she?d been doing well on HFNC during the day, with or without NRBFM. She?s been going on CPAP at night. She?s been able to east breakfast, lunch and dinner during the day. Loves her coffee in the morning. Yesterday, she required the high-flow nasal cannula plus non-rebreather all day long. Last night, FiO2 on CPAP was down to 90% all night. Today she has been on the high flow +non-rebreather all day. See Vital Signs below. Currently on HFNC 60L/100% + NRBFM @ 15L, Sat?s are 88-92%. RR was 20-30 this morning; currently low 30?s. Trivial accessory musc use, good excursion, minor increased WOB attributable to her respiratory rate. Central venous blood gas this morning showed 7.37/44/0. (Base excess down to 0 after Diamox.) Afebrile today. She continues on doxycycline since August 27. Reasonably animated, about the same as yesterday. She has no JVD. Expiratory phase is normal. She has no gross edema. LABORATORY DATA: As below. Notably, sodium is up to 146, BUN/creat up slightly, glucose up into the 200s. D-dimer is down. Procalcitonin is normal. MICROBIOLOGY: Blood cultures from 08/30 are negative. Sputum Gram stain from 08/30 shows 1+ polys and 2+ Gram-positive cocci. Culture grew mixed resp james. Screening urinalysis from 08/30 was negative. SEROLOGIES: Legionella urinary antigen was negative; mycoplasma titers are pending. ECHO Aug 28: Normal LV cavity size, wall thickness, systolic function is hyper dynamic, EF is >70%. Impaired relaxation filling pattern. RV probably normal size. No significant valvular dz. IVC normal in size w > 50% insp collapse. RVSP estimate 27mm. IMPRESSION: 1. Underlying baseline severe interstitial lung disease. 2. Bilateral acute COVID pneumonia. On Solu-Medrol 80 mg bid, plus Pepcid, thiamine, Vit C, Vit D, and Zinc. 3. Severe acute hypoxemic respiratory failure, secondary to the above. She fulfills [place] criteria for ARDS. Supportive management with CPAP and opiates prn. Hold further diuresis. Can up to BiPAP if necessary. 4. ID: Fulfills criteria for viral sepsis. The fever and white count she had on Aug 27 responded well to doxycycline, with subsequent resolution of fever, and improved resp parameters. All cultures negative so far; serologies are pending. Not clear how long to continue the doxycycline. I would suggest d/c after tomorrow?s afternoon dose (which would be a 7-day course). 5. DVT. On full dose Lovenox. PE unlikely (or at least clinically insignificant), based on echo, troponin, and BNP. 6. Diabetes. On Lantus plus sliding scale. Episode of hypoglycemia to the 40?s on Aug 31. I?ll change her Lantus to 20 units bid. 7. Hypertension. On beta-blockers. Restarted metoprolol. 8. Coronary artery disease. Asymptomatic at present. Continuing Plavix. 9. Metabolic alkalosis. Resolved with Diamox. Now d/c?d. 10. Hypernatremia. She?s not on any IV fluids. I?ll add D5W at 30cc/hr. Prognosis is very guarded. Critical care time: 50 minutes. Physical Exam Vital Signs: Vital Signs: Last Vital Signs Temp 99.7 F 09/02/20 12:00 Pulse 101 H 09/02/20 13:00 Resp 25 H 09/02/20 13:00 BP 130/61 09/02/20 13:00 Pulse Ox 86 L 09/02/20 13:00 Body Mass Index 27.3 Objective Data Labs CBC & Chem 7: 09/01/20 05:40 09/02/20 10:01 Labs: Laboratory Results - last 24 hr 08/29/20 09/01/20 09/01/20 11:50 16:43 20:42 D-Dimer VBG pH VBG pCO2 VBG pO2 VBG HCO3 VBG O2 Saturation VBG Base Excess Sodium Potassium Chloride Carbon Dioxide Anion Gap BUN Creatinine Estim Creat Clear Calc Estimated GFR POC Glucose 211 H 167 H Random Glucose Lactic Acid Calcium Phosphorus Magnesium Procalcitonin Ur L.pneumophila Ag Not Detected 09/02/20 09/02/20 09/02/20 07:30 10:01 10:01 D-Dimer 3593 VBG pH VBG pCO2 VBG pO2 VBG HCO3 VBG O2 Saturation VBG Base Excess Sodium Potassium Chloride Carbon Dioxide Anion Gap BUN Creatinine Estim Creat Clear Calc Estimated GFR POC Glucose 128 H Random Glucose Lactic Acid 1.4 Calcium Phosphorus Magnesium Procalcitonin Ur L.pneumophila Ag 09/02/20 09/02/20 09/02/20 10:01 10:01 10:01 D-Dimer VBG pH 7.37 VBG pCO2 44 VBG pO2 54 VBG HCO3 25 VBG O2 Saturation 84.0 VBG Base Excess 0.3 Sodium 146 H Potassium 3.8 Chloride 113 H Carbon Dioxide 24 Anion Gap 13 BUN 25 H Creatinine 0.59 Estim Creat Clear Calc 66.0 Estimated GFR > 60 POC Glucose Random Glucose 253 H D Lactic Acid Calcium 8.1 L Phosphorus 2.7 Magnesium 2.2 Procalcitonin 0.03 Ur L.pneumophila Ag 09/02/20 11:26 D-Dimer VBG pH VBG pCO2 VBG pO2 VBG HCO3 VBG O2 Saturation VBG Base Excess Sodium Potassium Chloride Carbon Dioxide Anion Gap BUN Creatinine Estim Creat Clear Calc Estimated GFR POC Glucose 296 H Random Glucose Lactic Acid Calcium Phosphorus Magnesium Procalcitonin Ur L.pneumophila Ag Microbiology Microbiology Results: Microbiology 08/30/20 16:44 Blood - Venous Blood Culture - Preliminary No growth after 48 hours. 08/30/20 16:44 Blood - Venous Blood Culture - Preliminary No growth after 48 hours. 08/27/20 13:24 Blood - Venous Blood Culture - Final No growth after 5 days. 08/27/20 13:24 Blood - Venous Blood Culture - Final No growth after 5 days. 08/30/20 16:35 Sputum - Suctioned Gram Stain - Final 08/30/20 16:35 Sputum - Suctioned Sputum Culture - Final 08/20/20 10:59 Blood - Venous Blood Culture - Final No growth after 5 days. 08/20/20 10:55 Blood - Venous Blood Culture - Final No growth after 5 days. Progress Note: A&P Time Spent With Patient Time: Total time spent is greater than 50% in coordination of care (as documented) at patient's floor/unit and/or counseling patient: Total time spent with greater than 50% in coordination of care (as documented) at patient's floor/unit and/or counseling patient:: 0 Critical Care Time Critical Care Time (minutes): 60
[2020-09-02] MEDS: Ascorbic Acid 500 MG TABLET PO ×2 (16:24→20:41)
[2020-09-02] MEDS: Dextrose 5 % 1,000 ML 30 ML IVCONT (16:24)
[2020-09-02 16:27] LABS: Glucose, Whole Blood 147 mg/dL (60-115)
--- NOTE | 2020-09-02 17:50 | PC.NURSE ---
Patient was taken off of CPAP at approximately 0800 and placed on NRBM/HFNC. Patient had been holding sats of 84-91% and has been able to eat all three meals and take PO meds. Nystatin powder to groin rash. Vitals stable. Khoury catheter pulled and external catheter placed. Grand daughter updated and patient spoke with granddaughter on the phone. Will continue to monitor.
[2020-09-02] MEDS: Insulin Glargine,Hum.rec.anlog 100 UNIT/ML 10 ML VIAL 20 UNIT SUBCUT (20:41)
[2020-09-02 21:21] LABS: Glucose, Whole Blood 335 mg/dL (60-115)
[2020-09-03] VITALS (27 sets, daily range): BP systolic 92–161; BP diastolic 47–87; PULSE 71–118; RESP 17–50; TEMP 36.4–37.3; O2SAT 83–95
[2020-09-03] MEDS: methylPREDNISolone Sod Succ/PF 125 MG/2 ML VIAL 80 MG IVPUSH ×2 (00:26→13:51)
[2020-09-03] MEDS: Doxycycline Hyclate 100 MG in 0.9 % Sodium Chloride 250 ML 166.67 MG IV ×2 (00:27→13:52)
[2020-09-03] MEDS: Enoxaparin Sodium 80 MG/0.8 ML SYRINGE 65 MG SUBCUT ×2 (05:33→17:53)
[2020-09-03 05:50] LABS: Basophils Percent Auto 0.1 % (0-2); Hematocrit 39.5 % (37-47); Hemoglobin 12.6 g/dl (12.0-16.0); Imm Gran Abs Auto 0.36 X10*3/uL (0.00-0.03); Imm Gran Pct Auto 1.7 % (0.0-0.4); Lymphocytes Absolute Auto 0.9 X10*3/uL (1.2-4.9); Lymphocytes Percent Auto 4.2 % (20-40); MANUAL DIFF FLAG SCAN; Mean Corpuscular HGB Conc 31.9 g/dl (31.0-35.0); Mean Corpuscular Volume 81.6 fL (80-98); Mean Platelet Volume 9.7 fL (9.4-12.3); Monocytes Absolute Auto 0.1 X10*3/uL (0.1-1.2); Monocytes Percent Auto 0.5 % (2-11); Neutrophils Absolute Auto 20.2 X10*3/uL (2.0-8.3); Neutrophils Percent Auto 93.5 % (45-73); Platelet Count 467 X10*3/uL (160-400); Red Blood Count 4.84 X10*6/uL (4.20-5.50); SCAN SMEAR FLAG 1; White Blood Count 21.6 X10*3/uL (4.8-10.8)
[2020-09-03 06:13] LABS: Anion Gap 12 (12-20); Blood Urea Nitrogen 20 mg/dL (9-16); C Reactive Protein 2.14 mg/dL (< or = 0.50); Calcium 8.1 mg/dL (8.4-10.2); Carbon Dioxide 25 mmol/L (22-29); Chloride 114 mmol/L (96-108); Creatinine Clr Calc Pharmacy 73.4; Estimated Glomerular Filt Rate > 60; Glucose Random 99 mg/dL (60-115); Potassium 3.8 mmol/L (3.3-5.1); Sodium 147 mmol/L (135-145)
[2020-09-03 06:14] LABS: D Dimer 3430 NG/ML
[2020-09-03 07:51] LABS: Glucose, Whole Blood 108 mg/dL (60-115)
[2020-09-03] MEDS: 0.9 % Sodium Chloride Flush 3 ML SYRINGE IVFLUSH ×3 (08:18→19:53)
[2020-09-03] MEDS: Ascorbic Acid 500 MG TABLET PO (08:18)
[2020-09-03] MEDS: Cholecalciferol (Vitamin D3) 25 MCG TABLET 50 MCG PO (08:18)
[2020-09-03] MEDS: Nystatin Powder 15 GM BOTTLE 1 APPL TOPICAL ×2 (08:19→19:52)
[2020-09-03] MEDS: Clopidogrel Bisulfate 75 MG TABLET PO (08:19)
[2020-09-03] MEDS: Metoprolol Tartrate 25 MG TABLET PO (08:19)
[2020-09-03] MEDS: Insulin Glargine,Hum.rec.anlog 100 UNIT/ML 10 ML VIAL 20 UNIT SUBCUT (08:20)
[2020-09-03] MEDS: Famotidine/PF 20 MG/2 ML VIAL IVPUSH (08:21)
[2020-09-03] MEDS: Thiamine HCL 200 MG/2 ML VIAL IVPUSH (08:21)
[2020-09-03 09:45] LABS: Rheumatoid Factor < 15.0 IU/mL (<15.0)
[2020-09-03 11:04] LABS: Erythrocyte Sedimentation Rate 7 MM/HR (0-20)
[2020-09-03 11:18] LABS: SLIDE REVIEW VERIFIED
[2020-09-03 11:24] LABS: Glucose, Whole Blood 175 mg/dL (60-115)
--- NOTE | 2020-09-03 13:24 | MHC.CM.PN ---
Addendum entered by Lashay Shukal 09/03/20 14:36: with family but they are holding out for a miracle from God and do not wish to consider Hospice at this time. Family requested another conference call on Tuesday 09/05 at 1pm to discuss d/c options again. At this time, consensus was for a return to home with family support and VNA however, this seems unlikely d/t pt's high flow O2 needs. Will revisit on 09/05 with family Original Note: Family phone conference with pt's dtrs Tiana Montalvo and grand daughter Fide to discuss d/c goals of care. Explored all possible d/c scenairos: home with VNA and family, Home with Hospice, STR vs LTAC, even a return to family in [place]: Educated family on barriers and advantages to each scenario: answered all questions and provided resource information Family would like pt to be able to return to home with VNA and family report but understand the d/c plan may need to be modified based on the pt's medical condition. Very gently suggested the possibility of Hospice care
--- NOTE | 2020-09-03 13:59 | PM.CCPN ---
Subjective Subjective Date of Service: 09/03/20 Interval History: 79-year-old female hospitalized now for 14 days remaining on noninvasive support with 100% non-rebreather maintaining oxygen saturations 86-91% but recently declared herself in conjunction with her family as a DNR and DNI and wishes not to progress to intubation as she is a advanced COVID-19 bilateral pneumonitis and ARDS apparently superimposed on very extensive interstitial fibrotic pulmonary disease/emphysema noted on her a CT scan She has known ischemic heart disease with history of coronary stenting on Plavix and is an underlying hypertensive type 2 diabetic with COPD and hyperlipidemia and reactive airway disease as well Currently stable but in any movement creates oxygen desaturation with secondary elevation of heart rate along with a drop in her oxygen saturations Has noted bilateral lower extremity deep vein thrombosis on full dose Lovenox No other apparent organ system involvement Physical Exam Vital Signs: Vital Signs: Last Vital Signs Temp 97.6 F 09/03/20 11:58 Pulse 86 09/03/20 13:00 Resp 27 H 09/03/20 13:00 BP 127/55 L 09/03/20 13:00 Pulse Ox 90 L 09/03/20 13:00 Body Mass Index 27.3 Const: Other: Awake and oriented and nonfocal neurologically Skin with no acrocyanosis no wounds Cardiac with normal S1 and normal S2 and no neck vein distension and good bilateral carotid upstrokes Chest with scattered bilateral rales Abdomen benign with no organomegaly and good bowel sounds nontender tolerating diet Objective Data Labs CBC & Chem 7: 09/03/20 05:30 09/03/20 05:30 Labs: Laboratory Results - last 24 hr 09/02/20 09/02/20 09/03/20 16:19 20:49 05:30 WBC 21.6 H RBC 4.84 Hgb 12.6 Hct 39.5 MCV 81.6 MCH 26.0 L MCHC 31.9 RDW 13.0 Plt Count 467 H D MPV 9.7 Immature Gran % (Auto) 1.7 H Neut % (Auto) 93.5 H Lymph % (Auto) 4.2 L [place] % (Auto) 0.5 L Eos % (Auto) 0.0 Baso % (Auto) 0.1 Lymph # (Auto) 0.9 L [place] # (Auto) 0.1 Eos # (Auto) 0.0 Baso # (Auto) 0.0 Abs Immat Gran (auto) 0.36 H Absolute Neuts (auto) 20.2 H Absolute Nucleated RBC 0.000 Nucleated RBC % (auto) 0.0 Smear Tech's Comments VERIFIED ESR D-Dimer Sodium Potassium Chloride Carbon Dioxide Anion Gap BUN Creatinine Estim Creat Clear Calc Estimated GFR POC Glucose 147 H 335 H Random Glucose Calcium C-Reactive Protein Rheumatoid Factor 09/03/20 09/03/20 09/03/20 05:30 05:30 07:45 WBC RBC Hgb Hct MCV MCH MCHC RDW Plt Count MPV Immature Gran % (Auto) Neut % (Auto) Lymph % (Auto) [place] % (Auto) Eos % (Auto) Baso % (Auto) Lymph # (Auto) [place] # (Auto) Eos # (Auto) Baso # (Auto) Abs Immat Gran (auto) Absolute Neuts (auto) Absolute Nucleated RBC Nucleated RBC % (auto) Smear Tech's Comments ESR D-Dimer 3430 Sodium 147 H Potassium 3.8 Chloride 114 H Carbon Dioxide 25 Anion Gap 12 BUN 20 H Creatinine 0.53 Estim Creat Clear Calc 73.4 Estimated GFR > 60 POC Glucose 108 Random Glucose 99 D Calcium 8.1 L C-Reactive Protein 2.14 H Rheumatoid Factor 09/03/20 09/03/20 09/03/20 09:18 09:18 11:20 WBC RBC Hgb Hct MCV MCH MCHC RDW Plt Count MPV Immature Gran % (Auto) Neut % (Auto) Lymph % (Auto) [place] % (Auto) Eos % (Auto) Baso % (Auto) Lymph # (Auto) [place] # (Auto) Eos # (Auto) Baso # (Auto) Abs Immat Gran (auto) Absolute Neuts (auto) Absolute Nucleated RBC Nucleated RBC % (auto) Smear Tech's Comments ESR 7 D-Dimer Sodium Potassium Chloride Carbon Dioxide Anion Gap BUN Creatinine Estim Creat Clear Calc Estimated GFR POC Glucose 175 H Random Glucose Calcium C-Reactive Protein Rheumatoid Factor < 15.0 Microbiology Microbiology Results: Microbiology 08/30/20 16:44 Blood - Venous Blood Culture - Preliminary No growth after 48 hours. 08/30/20 16:44 Blood - Venous Blood Culture - Preliminary No growth after 48 hours. 08/27/20 13:24 Blood - Venous Blood Culture - Final No growth after 5 days. 08/27/20 13:24 Blood - Venous Blood Culture - Final No growth after 5 days. 08/30/20 16:35 Sputum - Suctioned Gram Stain - Final 08/30/20 16:35 Sputum - Suctioned Sputum Culture - Final 08/20/20 10:59 Blood - Venous Blood Culture - Final No growth after 5 days. 08/20/20 10:55 Blood - Venous Blood Culture - Final No growth after 5 days. Progress Note: A&P Assessment and plan (1) ARDS (adult respiratory distress syndrome): Status: Acute (2) Acute respiratory failure with hypoxia: Status: Acute (3) Angina pectoris: Status: Acute (4) COVID-19: Status: Acute (5) Hypoxia: Status: Acute (6) Metabolic acidosis: Status: Acute (7) Acute respiratory failure due to COVID-19: Status: Acute (8) Viral sepsis: Status: Acute (9) Elevated troponin: Status: Acute (10) Atherosclerotic cardiovascular disease: Status: Acute (11) HLD (hyperlipidemia): Status: Acute (12) HTN (hypertension): Status: Acute (13) T2DM (type 2 diabetes mellitus): Status: Acute (14) COPD (chronic obstructive pulmonary disease): Status: Acute (15) Asthma: Status: Acute (16) Hyperlipidemia, unspecified: Status: Acute (17) Hypernatremia: Status: Acute Assessment and Plan: The plan is to continue low-dose D5W for the hypernatremia and metabolic acidosis appears to be iatrogenic from normal saline and noninvasive oxygen support will continue no advanced life support however according to the patient Time Spent With Patient Time: Total time spent is greater than 50% in coordination of care (as documented) at patient's floor/unit and/or counseling patient: Total time spent with greater than 50% in coordination of care (as documented) at patient's floor/unit and/or counseling patient:: 35
[2020-09-03 15:02] LABS: Mycoplasma Pneumoniae - IgG 1.59 (<=0.90); Mycoplasma Pneumoniae - IgM 129 U/mL (<770)
[2020-09-03 16:32] LABS: Glucose, Whole Blood 124 mg/dL (60-115)
[2020-09-03] MEDS: Morphine Sulfate 4 MG/ML CARTRIDGE IVPUSH (19:52)
[2020-09-04] VITALS (11 sets, daily range): BP systolic 94–123; BP diastolic 44–53; PULSE 83–122; RESP 16–36; TEMP 35.8; O2SAT 90–96
[2020-09-04] MEDS: methylPREDNISolone Sod Succ/PF 125 MG/2 ML VIAL 80 MG IVPUSH ×2 (01:32→14:23)
[2020-09-04] MEDS: Morphine Sulfate 4 MG/ML CARTRIDGE IVPUSH (04:00)
[2020-09-04 07:48] LABS: Glucose, Whole Blood 59 mg/dL (60-115)
[2020-09-04 08:35] LABS: Glucose, Whole Blood 55 mg/dL (60-115)
[2020-09-04 08:44] LABS: Glucose, Whole Blood 190 mg/dL (60-115)
[2020-09-04 09:28] LABS: Glucose Random 208 mg/dL (60-115)
[2020-09-04] MEDS: Thiamine HCL 200 MG/2 ML VIAL IVPUSH ×2 (10:16→21:40)
[2020-09-04] MEDS: Famotidine/PF 20 MG/2 ML VIAL IVPUSH ×2 (10:16→21:40)
[2020-09-04] MEDS: Nystatin Powder 15 GM BOTTLE 1 APPL TOPICAL ×2 (10:17→21:51)
[2020-09-04 11:27] LABS: Glucose, Whole Blood 95 mg/dL (60-115)
[2020-09-04 12:41] LABS: Myeloperoxidase Antibody <1.0 AI; Proteinase 3 PR3 Antibodies <1.0 AI
[2020-09-04 13:26] LABS: Anti Nuclear Antibody Screen NEGATIVE (NEGATIVE)
--- NOTE | 2020-09-04 13:42 | PC.NURSE ---
pt remains on CPAP mask 10 and 100%, when mask off pt desats to high 60's low 70's within 30 seconds, took mask off with RT to swab mouth, mouth is extremely dry, cracked and bloody, pt coughed up 2 large amounts of sputum patricio and brown and bloody. Pt hr SR but up to ST with any exertion, TLC in RIJ, pt bathed, pad changed, purewick in place, spoke with mirtha in am for update, Dr. Kwok at bedside to see patient and will speak with family about plan of care later today, Pt unable to tolerate PO meds, aware, barrier cream applied to coccyx, will cont to monitor
[2020-09-04] MEDS: Enoxaparin Sodium 80 MG/0.8 ML SYRINGE 65 MG SUBCUT (15:14)
[2020-09-04] MEDS: Morphine Sulfate 2 MG/ML CARTRIDGE IVPUSH (15:14)
--- NOTE | 2020-09-04 15:43 | HO.PM.IMPN ---
Subjective Subjective Date of Service: 09/04/20 Interval History: Quite short of breath. On CPAP at fiO2 100% and immediately desaturates if mask removed. C/o abd discomfort. Physical Exam Vital Signs: Vital Signs: Last Vital Signs Temp 98.3 F 09/03/20 23:51 Pulse 113 H 09/04/20 12:00 Resp 24 H 09/04/20 15:32 BP 123/51 L 09/04/20 12:00 Pulse Ox 91 L 09/04/20 12:00 Body Mass Index 27.3 Gen: iill-appearing HEENT: sclera anicteric, very dry oral mucosa Neck: supple Lungs: moderate respiratory distress, auscultation deferred due to COVID-19 Heart: normal peripheral pulses Abd: soft, non-tender, non-distended Ext: no cyanosis, clubbing, or edema Skin: warm/well-perfused Neuro: no focal findings Psych: appropriate affect Objective Data Current Medications Generic Name Dose Route Start Last Admin Trade Name Freq PRN Reason Stop Dose Admin Acetaminophen 650 mg 08/20/20 16:18 08/26/20 22:26 Acetaminophen 325 Mg Tablet PO 650 mg Q6H PRN Administration Pain, Mild (Pain Scale 1-3) Ascorbic Acid 500 mg 08/27/20 15:00 09/04/20 14:23 Ascorbic Acid 500 Mg Tablet PO Not Given TID [facility] Clopidogrel Bisulfate 75 mg 08/21/20 09:00 09/04/20 10:17 Clopidogrel Bisulfate 75 Mg Tablet PO Not Given DAILY [facility] Docusate Sodium 100 mg 08/20/20 16:18 Docusate Sodium 100 Mg Capsule PO DAILY PRN Constipation Enoxaparin Sodium 65 mg 08/29/20 06:00 09/04/20 15:14 Enoxaparin Sodium 80 Mg/0.8 Ml Syringe 1 mg/kg (65 mg) 65 mg SUBCUT Administration Q12H LUCIE Famotidine 20 mg 08/27/20 21:00 09/04/20 10:16 Famotidine/Pf 20 Mg/2 Ml Vial IVPUSH 20 mg BID LUCIE Administration Dextrose 1,000 mls @ 30 mls/hr 09/02/20 14:00 09/04/20 03:25 D5w IVCONT Infused .Q24H LUCIE Infusion Insulin Human Lispro 0 unit 08/20/20 16:30 09/04/20 12:59 Insulin Lispro 100 Unit/Ml 3 Ml Vial SUBCUT Not Given QIDACHS [facility] Protocol Lisinopril 40 mg 08/21/20 09:00 09/04/20 10:17 Lisinopril 40 Mg Tablet PO Not Given DAILY [facility] Methylprednisolone Sodium Succinate 80 mg 08/27/20 13:00 09/04/20 14:23 Methylprednisolone Sod Succ/Pf 125 Mg/2 Ml Vial IVPUSH 80 mg Q12H LUCIE Administration Metoprolol Tartrate 25 mg 08/29/20 12:55 09/04/20 10:17 Metoprolol Tartrate 25 Mg Tablet PO Not Given BID [facility] Protocol Morphine Sulfate 2 mg 09/04/20 11:51 09/04/20 15:14 Morphine Sulfate 2 Mg/Ml Cartridge IVPUSH 2 mg Q2H PRN Administration severe pain or discomfort Nystatin 1 appl 08/27/20 11:00 09/04/20 10:17 Nystatin Powder 15 Gm Bottle TOPICAL 1 appl BID [facility] Administration Protocol Ondansetron HCl 4 mg 08/20/20 16:18 Ondansetron Hcl 4 Mg/2 Ml Vial IVPUSH Q8H PRN Nausea and Vomiting Sodium Chloride 3 ml 08/20/20 16:18 09/04/20 07:40 0.9 % Sodium Chloride Flush 3 Ml Syringe IVFLUSH Not Given QSHIFT [facility] Thiamine HCl 200 mg 08/27/20 21:00 09/04/20 10:16 Thiamine Hcl 200 Mg/2 Ml Vial IVPUSH 200 mg BID [facility] Administration Vitamin D 50 mcg 08/28/20 09:00 09/04/20 10:17 Cholecalciferol (Vitamin D3) 25 Mcg Tablet PO Not Given DAILY [facility] Zinc Sulfate 220 mg 08/29/20 12:45 09/04/20 10:17 Zinc Sulfate 220 Mg Capsule PO Not Given DAILY [facility] Labs CBC & Chem 7: 09/03/20 05:30 09/04/20 08:34 Labs: Laboratory Results - last 24 hr 09/03/20 09/03/20 09/03/20 09:18 09:18 16:27 POC Glucose 124 H Random Glucose TARI Screen NEGATIVE TARI Titer TNP TARI Titer 2 TNP TARI Titer 3 TNP TARI Pattern TNP TARI Pattern 2 TNP TARI Pattern 3 TNP Proteinase 3 (PR3) Ab <1.0 Myeloperoxidase Ab <1.0 09/04/20 09/04/20 09/04/20 07:42 07:43 08:34 POC Glucose 59 L* 55 L* Random Glucose 208 H D TARI Screen TARI Titer TARI Titer 2 TARI Titer 3 TARI Pattern TARI Pattern 2 TARI Pattern 3 Proteinase 3 (PR3) Ab Myeloperoxidase Ab 09/04/20 09/04/20 08:34 11:18 POC Glucose 190 H 95 Random Glucose TARI Screen TARI Titer TARI Titer 2 TARI Titer 3 TARI Pattern TARI Pattern 2 TARI Pattern 3 Proteinase 3 (PR3) Ab Myeloperoxidase Ab Microbiology Microbiology Results: Microbiology 08/30/20 16:44 Blood - Venous Blood Culture - Preliminary No growth after 48 hours. 08/30/20 16:44 Blood - Venous Blood Culture - Preliminary No growth after 48 hours. 08/27/20 13:24 Blood - Venous Blood Culture - Final No growth after 5 days. 08/27/20 13:24 Blood - Venous Blood Culture - Final No growth after 5 days. 08/30/20 16:35 Sputum - Suctioned Gram Stain - Final 08/30/20 16:35 Sputum - Suctioned Sputum Culture - Final 08/20/20 10:59 Blood - Venous Blood Culture - Final No growth after 5 days. 08/20/20 10:55 Blood - Venous Blood Culture - Final No growth after 5 days. Assessment and Plan (1) Acute respiratory failure due to COVID-19: Status: Acute (2) T2DM (type 2 diabetes mellitus): Status: Acute Assessment and Plan: hospital d#16 79yo F with HTN, DM2, COPD admitted for hypoxia due to COVID-19 pneumonia symptom onset 08/11, test positive 08/14, admit 08/20, ICU 08/22 severely hypoxic on HFNC+NRB, now on CPAP BLE DVTs diagnosed 08/28 DNR/DNI 09/02 IMC status 09/03 # acute hypoxic resp failure - CPAP vs HFNC + NRB # COVID-19 pneumonia - on steroids- methylprednisolone 80mg q12h. presented out of window for remdesivir. on EV[facility] vit B1/C/D protocol. # bilateral DVTs - therapeutic LMWH # hyperNa - continue D5W # DM2 with hypoglycemia - d/c Lantus; give correction-dose Humalog # CAD - clopidogrel # HLD - statin # HTN - lisinopril, metoprolol Very grave prognosis. Spoke with pt's guardian/granddaughter Jenna Varghese and pt's daughters Tiana, Katia and Melinda by phone
[2020-09-04 15:54] LABS: Glucose, Whole Blood 70 mg/dL (60-115)
--- NOTE | 2020-09-04 16:04 | P.ACPN_ITS ---
Advanced Care Planning Note Advanced Care Planning Note Discussed with: family member(s) Time spent (in minutes): 20 Narrative: Pt with refractory hypoxia and now hypoglycemia as well. Unable to take off CPAP fiO2 100% due to hypoxia. On D5W. Very grave prognosis. I discussed her situation with pt's guardian/granddaughter Jenna Varghese and pt's daughters Katia Montiel and Rosanne by phone. Jenna provided interpretation between [place] and [place]. 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 Will update CM. A Problems Discussed (1) Acute respiratory failure due to COVID-19: (2) Hypoglycemia:
[2020-09-04] MEDS: Dextrose 5 % 1,000 ML 100 ML IVCONT (16:23)
[2020-09-04] MEDS: 0.9 % Sodium Chloride Flush 3 ML SYRINGE IVFLUSH ×2 (16:25→21:41)
[2020-09-04 20:40] LABS: Glucose, Whole Blood 119 mg/dL (60-115)
[2020-09-05] VITALS (9 sets, daily range): BP systolic 102–121; BP diastolic 45–80; PULSE 77–114; RESP 17–26; TEMP 36.2–36.5; O2SAT 88–96
[2020-09-05] MEDS: Dextrose 5 % 1,000 ML 100 ML IVCONT (01:04)
[2020-09-05] MEDS: methylPREDNISolone Sod Succ/PF 125 MG/2 ML VIAL 80 MG IVPUSH (01:04)
[2020-09-05 05:50] LABS: Basophils Percent Auto 0.1 % (0-2); Hematocrit 35.8 % (37-47); Hemoglobin 11.3 g/dl (12.0-16.0); Imm Gran Abs Auto 0.18 X10*3/uL (0.00-0.03); Imm Gran Pct Auto 1.1 % (0.0-0.4); Lymphocytes Absolute Auto 0.6 X10*3/uL (1.2-4.9); Lymphocytes Percent Auto 3.8 % (20-40); MANUAL DIFF FLAG SCAN; Mean Corpuscular HGB Conc 31.6 g/dl (31.0-35.0); Mean Corpuscular Hemoglobin 26.2 pg (27.0-33.0); Mean Corpuscular Volume 82.9 fL (80-98); Mean Platelet Volume 9.8 fL (9.4-12.3); Monocytes Absolute Auto 0.1 X10*3/uL (0.1-1.2); Monocytes Percent Auto 0.4 % (2-11); Neutrophils Absolute Auto 15.9 X10*3/uL (2.0-8.3); Neutrophils Percent Auto 94.6 % (45-73); Platelet Count 458 X10*3/uL (160-400); Red Blood Count 4.32 X10*6/uL (4.20-5.50); Red Cell Distribution Width 13.2 % (11.0-16.0); SCAN SMEAR FLAG 1; White Blood Count 16.8 X10*3/uL (4.8-10.8)
[2020-09-05 06:13] LABS: SLIDE REVIEW VERIFIED
[2020-09-05 06:18] LABS: Alanine Aminotransferase 27 U/L (0-31); Albumin Level 2.5 g/dL (3.5-5.0); Alkaline Phosphatase 104 U/L (39-117); Anion Gap 12 (12-20); Aspartate Amino Transferase 22 U/L (5-31); Bilirubin Total 1.2 mg/dL (0.0-1.0); Blood Urea Nitrogen 25 mg/dL (9-16); C Reactive Protein 7.85 mg/dL (< or = 0.50); Calcium 7.9 mg/dL (8.4-10.2); Carbon Dioxide 30 mmol/L (22-29); Chloride 102 mmol/L (96-108); Creatinine Clr Calc Pharmacy 69.5; Estimated Glomerular Filt Rate > 60; Glucose Random 281 mg/dL (60-115); Lactate Dehydrogenase 432 U/L (122-220); Sodium 140 mmol/L (135-145)
[2020-09-05] MEDS: Enoxaparin Sodium 80 MG/0.8 ML SYRINGE 65 MG SUBCUT ×2 (06:21→16:49)
[2020-09-05 06:38] LABS: Ferritin 788 ng/mL (10-250)
[2020-09-05 07:16] LABS: Procalcitonin 0.04 ng/mL
[2020-09-05 07:22] LABS: Glucose, Whole Blood 288 mg/dL (60-115)
[2020-09-05] MEDS: 0.9 % Sodium Chloride Flush 3 ML SYRINGE IVFLUSH ×3 (09:12→22:08)
[2020-09-05] MEDS: Famotidine/PF 20 MG/2 ML VIAL IVPUSH ×2 (09:13→22:07)
[2020-09-05] MEDS: Thiamine HCL 200 MG/2 ML VIAL IVPUSH ×2 (09:13→22:08)
[2020-09-05] MEDS: Nystatin Powder 15 GM BOTTLE 1 APPL TOPICAL ×2 (09:15→22:08)
[2020-09-05] MEDS: Insulin Lispro 100 UNIT/ML 3 ML VIAL SUBCUT ×4 (09:25→22:06)
--- NOTE | 2020-09-05 09:59 | P.PNIM_ITS ---
Subjective Subjective Date of Service: 09/05/20 Interval History: SaO2 93-95% on CPAP with fiO2 100% wants to try going back on HFNC + NRB denies pain Physical Exam Vital Signs: Vital Signs: Last Vital Signs Temp 97.5 F 09/05/20 00:00 Pulse 80 09/05/20 08:00 Resp 19 09/05/20 08:00 BP 105/50 L 09/05/20 08:00 Pulse Ox 96 09/05/20 08:00 Body Mass Index 27.3 Gen: iill-appearing HEENT: sclera anicteric, very dry oral mucosa Neck: supple Lungs: mild respiratory distress, auscultation deferred due to COVID-19 Heart: normal peripheral pulses Abd: soft, non-tender, non-distended Ext: no cyanosis, clubbing, or edema Skin: warm/well-perfused Neuro: no focal findings Psych: appropriate affect Objective Data Current Medications Generic Name Dose Route Start Last Admin Trade Name Freq PRN Reason Stop Dose Admin Acetaminophen 650 mg 08/20/20 16:18 08/26/20 22:26 Acetaminophen 325 Mg Tablet PO 650 mg Q6H PRN Administration Pain, Mild (Pain Scale 1-3) Ascorbic Acid 500 mg 08/27/20 15:00 09/05/20 09:14 Ascorbic Acid 500 Mg Tablet PO Not Given TID [facility] Clopidogrel Bisulfate 75 mg 08/21/20 09:00 09/05/20 09:14 Clopidogrel Bisulfate 75 Mg Tablet PO Not Given DAILY [facility] Docusate Sodium 100 mg 08/20/20 16:18 Docusate Sodium 100 Mg Capsule PO DAILY PRN Constipation Enoxaparin Sodium 65 mg 08/29/20 06:00 09/05/20 06:21 Enoxaparin Sodium 80 Mg/0.8 Ml Syringe 1 mg/kg (65 mg) 65 mg SUBCUT Administration Q12H LUCIE Famotidine 20 mg 08/27/20 21:00 09/05/20 09:13 Famotidine/Pf 20 Mg/2 Ml Vial IVPUSH 20 mg BID LUCIE Administration Insulin Human Lispro 0 unit 08/20/20 16:30 09/05/20 09:25 Insulin Lispro 100 Unit/Ml 3 Ml Vial SUBCUT 6 unit QIDACHS [facility] Administration Protocol Lisinopril 40 mg 08/21/20 09:00 09/05/20 09:14 Lisinopril 40 Mg Tablet PO Not Given DAILY [facility] Methylprednisolone Sodium Succinate 80 mg 08/27/20 13:00 09/05/20 01:04 Methylprednisolone Sod Succ/Pf 125 Mg/2 Ml Vial IVPUSH 80 mg Q12H LUCIE Administration Metoprolol Tartrate 25 mg 08/29/20 12:55 09/05/20 09:15 Metoprolol Tartrate 25 Mg Tablet PO Not Given BID [facility] Protocol Morphine Sulfate 2 mg 09/04/20 11:51 09/04/20 15:14 Morphine Sulfate 2 Mg/Ml Cartridge IVPUSH 2 mg Q2H PRN Administration severe pain or discomfort Nystatin 1 appl 08/27/20 11:00 09/05/20 09:15 Nystatin Powder 15 Gm Bottle TOPICAL 1 appl BID [facility] Administration Protocol Ondansetron HCl 4 mg 08/20/20 16:18 Ondansetron Hcl 4 Mg/2 Ml Vial IVPUSH Q8H PRN Nausea and Vomiting Sodium Chloride 3 ml 08/20/20 16:18 09/05/20 09:12 0.9 % Sodium Chloride Flush 3 Ml Syringe IVFLUSH 3 ml QSHIFT [facility] Administration Thiamine HCl 200 mg 08/27/20 21:00 09/05/20 09:13 Thiamine Hcl 200 Mg/2 Ml Vial IVPUSH 200 mg BID [facility] Administration Vitamin D 50 mcg 08/28/20 09:00 09/05/20 09:14 Cholecalciferol (Vitamin D3) 25 Mcg Tablet PO Not Given DAILY [facility] Zinc Sulfate 220 mg 08/29/20 12:45 09/05/20 09:16 Zinc Sulfate 220 Mg Capsule PO Not Given DAILY [facility] Labs CBC & Chem 7: 09/05/20 05:30 09/05/20 05:30 Microbiology Microbiology Results: Microbiology 08/30/20 16:44 Blood - Venous Blood Culture - Final No growth after 5 days. 08/30/20 16:44 Blood - Venous Blood Culture - Final No growth after 5 days. 08/27/20 13:24 Blood - Venous Blood Culture - Final No growth after 5 days. 08/27/20 13:24 Blood - Venous Blood Culture - Final No growth after 5 days. 08/30/20 16:35 Sputum - Suctioned Gram Stain - Final 08/30/20 16:35 Sputum - Suctioned Sputum Culture - Final 08/20/20 10:59 Blood - Venous Blood Culture - Final No growth after 5 days. 08/20/20 10:55 Blood - Venous Blood Culture - Final No growth after 5 days. Assessment and Plan (1) Acute respiratory failure due to COVID-19: Status: Acute (2) T2DM (type 2 diabetes mellitus): Status: Acute Assessment and Plan: hospital d#17 79yo F with HTN, DM2, COPD admitted for hypoxia due to COVID-19 pneumonia symptom onset 08/11, test positive 08/14, admit 08/20, ICU 08/22 severely hypoxic on HFNC+NRB, now on CPAP BLE DVTs diagnosed 08/28 DNR/DNI 09/02 IMC status 09/03 # acute hypoxic resp failure - will try to transition back to HFNC + NRB # COVID-19 pneumonia - on methylprednisolone 80mg q12h- wean gradually. presented out of window for remdesivir. on [facility] vit B1/C/D protocol. # bilateral DVTs - therapeutic LMWH # hyperNa - resolved, d/c D5W # DM2 - Lantus stopped, hypoglycemia resolved, and now hyperglycemic; d/c D5W; continue correction-dose Humalog # CAD - clopidogrel # HLD - statin # HTN - lisinopril, metoprolol # dispo - family considering MEDICAL RESEARCH SCIENTIST status pending visit. will update by phone
[2020-09-05 11:23] LABS: Glucose, Whole Blood 338 mg/dL (60-115)
[2020-09-05] MEDS: methylPREDNISolone Sod Succ/PF 125 MG/2 ML VIAL 60 MG IVPUSH ×2 (13:18→22:07)
--- NOTE | 2020-09-05 13:22 | MHC.CM.PN ---
Patient remains in ICU as an IMC patient. Currently on 100% NRB. 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 Continue to monitor for d/c needs.
[2020-09-05 16:20] LABS: Glucose, Whole Blood 187 mg/dL (60-115)
[2020-09-05 21:43] LABS: Glucose, Whole Blood 262 mg/dL (60-115)
[2020-09-05] MEDS: Ascorbic Acid 500 MG TABLET PO (22:08)
[2020-09-06] VITALS (16 sets, daily range): BP systolic 108–122; BP diastolic 46–66; PULSE 82–129; RESP 15–38; TEMP 36.6–36.9; O2SAT 82–96
[2020-09-06] MEDS: Morphine Sulfate 2 MG/ML CARTRIDGE IVPUSH ×2 (00:35→05:14)
--- NOTE | 2020-09-06 04:56 | PC.NURSE ---
CARE ASSUMED 23:15..AWAKE...RR 36-40...HI-KAYLEY CANNULA 100% & 50 L/M AND 100% NRB MASK IN PLACE...SAO2 82-83%...RETURNED TO CPAP 10CM & FIO2 100%...MEDICATED PRN MORPHINE 2MG IV FOR WORK OF BREATHING...SAO2 GRADUALLY IMPROVED TO 93-94% AND RR 20-24 AND DECREASED WORK OF BREATHING
[2020-09-06] MEDS: Enoxaparin Sodium 80 MG/0.8 ML SYRINGE 65 MG SUBCUT ×2 (05:13→22:07)
[2020-09-06 07:21] LABS: Glucose, Whole Blood 215 mg/dL (60-115)
--- NOTE | 2020-09-06 09:52 | MHC.CLN ---
F/U O INTAKE REMAINS POOR 0-25% DIET RX; 1500DM-APPROPRIATE PT RECEIVES GLUCERNA TID TO INCREASE KCALS PT WITH 100% ACCEPTANCE OF SUPPLEMENT PT POSSIBLE PENDING FRONT END UI DEVELOPER FOLLOWING
[2020-09-06] MEDS: 0.9 % Sodium Chloride Flush 3 ML SYRINGE IVFLUSH ×3 (10:07→22:09)
[2020-09-06] MEDS: Nystatin Powder 15 GM BOTTLE 1 APPL TOPICAL ×2 (10:09→22:09)
[2020-09-06] MEDS: Insulin Glargine,Hum.rec.anlog 100 UNIT/ML 10 ML VIAL 10 UNIT SUBCUT (10:15)
[2020-09-06] MEDS: methylPREDNISolone Sod Succ/PF 125 MG/2 ML VIAL 60 MG IVPUSH ×2 (10:17→22:08)
[2020-09-06] MEDS: Famotidine/PF 20 MG/2 ML VIAL IVPUSH ×2 (10:17→22:08)
[2020-09-06] MEDS: Thiamine HCL 200 MG/2 ML VIAL IVPUSH (10:26)
[2020-09-06] MEDS: Zinc Oxide 20% Ointment 28.35 GM TUBE 1 APPL TOPICAL (10:27)
--- NOTE | 2020-09-06 11:20 | HO.PM.IMPN ---
Subjective Subjective Date of Service: 09/06/20 Interval History: awake and alert desaturated overnight and placed back on CPAP at FiO2 100% thirsty, wants ice no pain Physical Exam Vital Signs: Vital Signs: Last Vital Signs Temp 98.1 F 09/06/20 08:00 Pulse 82 09/06/20 08:00 Resp 31 H 09/06/20 08:00 BP 111/61 09/06/20 08:00 Pulse Ox 96 09/06/20 08:00 Body Mass Index 27.3 Gen: ill-appearing but awake and alert HEENT: sclera anicteric, very dry oral mucosa Neck: supple Lungs: moderate respiratory distress, auscultation deferred due to COVID-19 Heart: normal peripheral pulses Abd: soft, non-tender, non-distended Ext: no cyanosis, clubbing, or edema Skin: warm/well-perfused Neuro: no focal findings Psych: appropriate affect Objective Data Current Medications Generic Name Dose Route Start Last Admin Trade Name Freq PRN Reason Stop Dose Admin Acetaminophen 650 mg 08/20/20 16:18 08/26/20 22:26 Acetaminophen 325 Mg Tablet PO 650 mg Q6H PRN Administration Pain, Mild (Pain Scale 1-3) Ascorbic Acid 500 mg 08/27/20 15:00 09/06/20 10:19 Ascorbic Acid 500 Mg Tablet PO Not Given TID [facility] Clopidogrel Bisulfate 75 mg 08/21/20 09:00 09/06/20 10:19 Clopidogrel Bisulfate 75 Mg Tablet PO Not Given DAILY [facility] Docusate Sodium 100 mg 08/20/20 16:18 Docusate Sodium 100 Mg Capsule PO DAILY PRN Constipation Enoxaparin Sodium 65 mg 08/29/20 06:00 09/06/20 05:13 Enoxaparin Sodium 80 Mg/0.8 Ml Syringe 1 mg/kg (65 mg) 65 mg SUBCUT Administration Q12H LUCIE Famotidine 20 mg 08/27/20 21:00 09/06/20 10:17 Famotidine/Pf 20 Mg/2 Ml Vial IVPUSH 20 mg BID LUCIE Administration Insulin Glargine 10 unit 09/06/20 09:00 09/06/20 10:15 Insulin Glargine,Hum.Rec.Anlog 100 Unit/Ml 10 Ml Vial SUBCUT 10 unit DAILY [facility] Administration Insulin Human Lispro 0 unit 08/20/20 16:30 09/06/20 10:19 Insulin Lispro 100 Unit/Ml 3 Ml Vial SUBCUT Not Given QIDACHS [facility] Protocol Lisinopril 40 mg 08/21/20 09:00 09/06/20 10:11 Lisinopril 40 Mg Tablet PO Not Given DAILY [facility] Methylprednisolone Sodium Succinate 60 mg 09/05/20 10:02 09/06/20 10:17 Methylprednisolone Sod Succ/Pf 125 Mg/2 Ml Vial IVPUSH 60 mg Q12H LUCIE Administration Metoprolol Tartrate 25 mg 08/29/20 12:55 09/06/20 10:10 Metoprolol Tartrate 25 Mg Tablet PO Not Given BID [facility] Protocol Morphine Sulfate 2 mg 09/04/20 11:51 09/06/20 05:14 Morphine Sulfate 2 Mg/Ml Cartridge IVPUSH 2 mg Q2H PRN Administration severe pain or discomfort Nystatin 1 appl 08/27/20 11:00 09/06/20 10:09 Nystatin Powder 15 Gm Bottle TOPICAL 1 appl BID [facility] Administration Protocol Ondansetron HCl 4 mg 08/20/20 16:18 Ondansetron Hcl 4 Mg/2 Ml Vial IVPUSH Q8H PRN Nausea and Vomiting Sodium Chloride 3 ml 08/20/20 16:18 09/06/20 10:07 0.9 % Sodium Chloride Flush 3 Ml Syringe IVFLUSH 3 ml QSHIFT [facility] Administration Thiamine HCl 200 mg 08/27/20 21:00 09/06/20 10:26 Thiamine Hcl 200 Mg/2 Ml Vial IVPUSH 200 mg BID [facility] Administration Vitamin D 50 mcg 08/28/20 09:00 09/06/20 10:19 Cholecalciferol (Vitamin D3) 25 Mcg Tablet PO Not Given DAILY [facility] Zinc Sulfate 220 mg 08/29/20 12:45 09/06/20 10:09 Zinc Sulfate 220 Mg Capsule PO Not Given DAILY [facility] Labs CBC & Chem 7: 09/05/20 05:30 09/05/20 05:30 Labs: Laboratory Results - last 24 hr 09/05/20 09/05/20 09/06/20 16:13 21:37 07:12 POC Glucose 187 H 262 H 215 H Microbiology Microbiology Results: Microbiology 08/30/20 16:44 Blood - Venous Blood Culture - Final No growth after 5 days. 08/30/20 16:44 Blood - Venous Blood Culture - Final No growth after 5 days. 08/27/20 13:24 Blood - Venous Blood Culture - Final No growth after 5 days. 08/27/20 13:24 Blood - Venous Blood Culture - Final No growth after 5 days. 08/30/20 16:35 Sputum - Suctioned Gram Stain - Final 08/30/20 16:35 Sputum - Suctioned Sputum Culture - Final 08/20/20 10:59 Blood - Venous Blood Culture - Final No growth after 5 days. 08/20/20 10:55 Blood - Venous Blood Culture - Final No growth after 5 days. Assessment and Plan (1) Acute respiratory failure due to COVID-19: Status: Acute (2) T2DM (type 2 diabetes mellitus): Status: Acute Assessment and Plan: hospital d#18 79yo F with HTN, DM2, COPD admitted for hypoxia due to COVID-19 pneumonia symptom onset 08/11, test positive 08/14, admit 08/20, ICU 08/22 for ARDS severely hypoxic on HFNC+NRB, now on CPAP BLE DVTs diagnosed 08/28 DNR/DNI 09/02 [facility] status 09/03 # acute hypoxic resp failure - alternating between CPAP and HFNC+NRB at fiO2 100% # COVID-19 pneumonia - continue to taper down methylprednisolone- on 60 mg q12h currently. presented out of window for remdesivir. 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 family updated by phone.
[2020-09-06 11:39] LABS: Glucose, Whole Blood 188 mg/dL (60-115)
[2020-09-06 16:29] LABS: Glucose, Whole Blood 212 mg/dL (60-115)
--- NOTE | 2020-09-06 16:31 | P.CONIM_ITS ---
History of Present Illness Data of Consult Service Date: 09/05/20 Requesting physician: Nanci Kwok Primary Care Provider: Alva Keyes NP HPI Reason for consult: rash on buttocks and groin The patient is a 79-year-old female who is admitted to the ICU with COVID respiratory issues. Generally she is slowly improving requiring less oxygenation. Unfortunately she has been in the hospital for a long time and has developed a rash on the buttocks going into the perineum and gluteal cleft. As result wound care consultation is requested. The been using barrier cream in the area. The patient does not speak Hungarian and automotive parts coordinator was used to speak and [place] with her. She was also little short of breath secondary to needing high flow oxygenation due to her respiratory status and so limited conversation was had. Review of Systems 2 Review of Systems: Constitutional : denies med noncompliance, no history of PE or DVT, denies recent travel, No Fever, No Chills ENT/Mouth : No Hoarseness, + sore throat, No Rhinorrhea Eyes: No Redness, No Discharge, No Vision Changes Cardiovascular : +SOB, No Chest Pain, No SOB, No Dyspnea on Exertion, No Edema, no pleurisy, Respiratory : +Cough, No Sputum, no stridor, no hemoptysis, Gastrointestinal : No Nausea, No Vomiting, No Diarrhea, No abdominal Pain Genitourinary : No Dysuria, No Hematuria Musculoskeletal : No joint pain, No Myalgias Extremities: no extremity swelling /pain Skin : No rash, no itching, no swelling Neuro : No Weakness, No Numbness, No Headache Psych : No anxiety, depression Heme/Lymph: No Bruising, No Bleeding Endocrine : No Polyuria, No Polydipsia Yes all other systems are reviewed and are negative Constitutional: Constitutional: Denies chills and Denies fever(s) Cardiovascular: Cardiovascular: Denies chest pain and Reports dyspnea Respiratory: Respiratory: Reports cough and Reports dyspnea Gastrointestinal: Gastrointestinal: Denies abdominal pain [facility] Medical History Asthma Atherosclerotic cardiovascular disease Bursitis of right shoulder COPD (chronic obstructive pulmonary disease) Essential hypertension High cholesterol HLD (hyperlipidemia) HTN (hypertension) Hyperlipidemia, unspecified Pulmonary nodules T2DM (type 2 diabetes mellitus) Type 2 diabetes mellitus with unspecified complications Functional capacity: uses cane/walker Family History Mother HTN (hypertension) Surgical History History of bunionectomy History of total abdominal hysterectomy and bilateral salpingo-oophorectomy Hx of colonoscopy Social History (Updated 08/20/20 @ 15:26 by LIS Schmitt) Household Members: None Housing: Apartment Alcohol intake: never Smoking Status: Former smoker Second Hand Smoke Exposure: No service: No Current occupational status: retired [employer] Allergies Allergy/AdvReac Type Severity Reaction Status Date / Time codeine [Codeine] Allergy Mild DIZZINESS, Verified 06/28/20 13:46 VOMITING insulin lispro Allergy Unknown NAUSEA & Verified 06/28/20 13:46 [INSULIN LISPRO] VOMITING oxycodone [OXYCODONE] Allergy Unknown NAUSEA & Verified 06/28/20 13:46 VOMITING Active Medications: Current Medications Generic Name Dose Route Start Last Admin Trade Name Freq PRN Reason Stop Dose Admin Acetaminophen 650 mg 08/20/20 16:18 08/26/20 22:26 Acetaminophen 325 Mg Tablet PO 650 mg Q6H PRN Administration Pain, Mild (Pain Scale 1-3) Clopidogrel Bisulfate 75 mg 08/21/20 09:00 09/06/20 10:19 Clopidogrel Bisulfate 75 Mg Tablet PO Not Given DAILY LUCIE Docusate Sodium 100 mg 08/20/20 16:18 Docusate Sodium 100 Mg Capsule PO DAILY PRN Constipation Enoxaparin Sodium 65 mg 08/29/20 06:00 09/06/20 05:13 Enoxaparin Sodium 80 Mg/0.8 Ml Syringe 1 mg/kg (65 mg) 65 mg SUBCUT Administration Q12H LUCIE Famotidine 20 mg 08/27/20 21:00 09/06/20 10:17 Famotidine/Pf 20 Mg/2 Ml Vial IVPUSH 20 mg BID [facility]CIE Administration Insulin Glargine 10 unit 09/06/20 09:00 09/06/20 10:15 Insulin Glargine,Hum.Rec.Anlog 100 Unit/Ml 10 Ml Vial SUBCUT 10 unit DAILY [facility]E Administration Insulin Human Lispro 0 unit 08/20/20 16:30 09/06/20 12:40 Insulin Lispro 100 Unit/Ml 3 Ml Vial SUBCUT Not Given QIDACHS [facility] Protocol Lisinopril 40 mg 08/21/20 09:00 09/06/20 10:11 Lisinopril 40 Mg Tablet PO Not Given DAILY [facility] Methylprednisolone Sodium Succinate 60 mg 09/05/20 10:02 09/06/20 10:17 Methylprednisolone Sod Succ/Pf 125 Mg/2 Ml Vial IVPUSH 60 mg Q12H [facility]CIE Administration Metoprolol Tartrate 25 mg 08/29/20 12:55 09/06/20 10:10 Metoprolol Tartrate 25 Mg Tablet PO Not Given BID [facility] Protocol Morphine Sulfate 2 mg 09/04/20 11:51 09/06/20 05:14 Morphine Sulfate 2 Mg/Ml Cartridge IVPUSH 2 mg Q2H PRN Administration severe pain or discomfort Nystatin 1 appl 08/27/20 11:00 09/06/20 10:09 Nystatin Powder 15 Gm Bottle TOPICAL 1 appl BID [facility] Administration Protocol Ondansetron HCl 4 mg 08/20/20 16:18 Ondansetron Hcl 4 Mg/2 Ml Vial IVPUSH Q8H PRN Nausea and Vomiting Sodium Chloride 3 ml 08/20/20 16:18 09/06/20 15:22 0.9 % Sodium Chloride Flush 3 Ml Syringe IVFLUSH 3 ml QSHIFT [facility] Administration Vitamin D 50 mcg 08/28/20 09:00 09/06/20 10:19 Cholecalciferol (Vitamin D3) 25 Mcg Tablet PO Not Given DAILY [facility] Home Medications Medication Instructions Recorded Confirmed Last Taken Type atorvastatin 80 mg tablet 80 mg PO BEDTIME 05/30/20 08/20/20 Unknown History calcium carbonate 600 mg (1,500 1 tab PO BID 05/30/20 08/20/20 Unknown History mg)-vitamin D3 400 unit tablet clopidogrel 75 mg tablet 75 mg PO DAILY 05/30/20 08/20/20 Unknown History ergocalciferol (vitamin D2) 1,250 1,250 mcg PO Q30D 05/30/20 08/20/20 Unknown History mcg (50,000 unit) capsule ezetimibe 10 mg tablet 10 mg PO QAM 05/30/20 08/20/20 Unknown History metformin 1,000 mg tablet 1,000 mg PO BID 05/30/20 08/20/20 Unknown History metoprolol succinate 50 mg 50 mg PO DAILY 05/30/20 08/20/20 Unknown History tablet,extended release 24 hr multivitamin with minerals 1 tab PO QAM 05/30/20 08/20/20 Unknown History nitroglycerin 0.4 mg sublingual 0.4 mg SUBLINGUAL Q5M PRN 05/30/20 08/20/20 Unknown History tablet oxybutynin chloride 5 mg 5 mg PO BEDTIME 05/30/20 08/20/20 Unknown History tablet,extended release 24 hr ramipril 10 mg capsule 10 mg PO QAM 05/30/20 08/20/20 Unknown History sennosides 8.6 mg tablet 8.6 mg PO BEDTIME PRN 05/30/20 08/20/20 Unknown History albuterol sulfate 90 mcg/actuation 90 mcg INHALATION Q4H PRN 06/12/20 08/20/20 Unknown History aerosol inhaler fluticasone propionate 50 2 spray INTRANASAL DAILY PRN 06/12/20 08/20/20 Unknown History mcg/actuation nasal spray,suspension loratadine 10 mg tablet 10 mg PO QAM 06/12/20 08/20/20 Unknown History semaglutide 1 mg/dose (2 mg/1.5 2 mg SUBCUT Q28D 06/12/20 08/20/20 Unknown History mL) subcutaneous pen injector tramadol 50 mg tablet 50 mg PO TID PRN 06/12/20 08/20/20 Unknown History blood sugar diagnostic #10 ea 06/28/20 09/02/20 Unknown History insulin glargine 100 unit/mL (3 8 unit SUBCUT BEDTIME ml 06/28/20 08/20/20 Unknown History mL) subcutaneous pen lancets 33 gauge #100 ea 06/28/20 09/02/20 Unknown History pen needle, diabetic 32 gauge x #50 ea 06/28/20 09/02/20 Unknown History empagliflozin [Jardiance] 1 tab PO QAM 08/20/20 08/20/20 Unknown History trazodone 1 tab PO BEDTIME PRN 08/20/20 08/20/20 Unknown History Physical Exam Vital Signs and Narrative: Vital Signs: Last Vital Signs Temp 97.8 F 09/06/20 16:00 Pulse 124 H 09/06/20 16:00 Resp 20 09/06/20 16:00 BP 122/59 L 09/06/20 16:00 Pulse Ox 83 L 09/06/20 16:00 Body Mass Index 27.3 Const: General: no acute distress, alert and awake Nutritional Appearance: well nourished Resp: Effort & Inspection: tachypneic Skin: Other: Patient has along the lower sacral coccygeal area going into the gluteal cleft perianal area and down into the perineum some erythema and petechial changes that are consistent with a slight fungal reaction. There is some mild erythema and little bit of dry skin with maybe some very superficial epidermal sloughing but no true full-thickness skin breakdown. Patient describes this areas being tender not itchy Neuro: Cranial nerves: Yes CN's II-XII intact bilaterally and Yes Bilaterally intact EOM present Extrem: General: Yes normal to inspection, Yes no pedal edema, No clubbing, No cyanosis and Yes edema (Trace bilateral) Results Labs CBC and Chem 7: 09/05/20 05:30 09/05/20 05:30 Labs: Laboratory Results - last 24 hr 09/05/20 09/06/20 09/06/20 21:37 07:12 11:24 POC Glucose 262 H 215 H 188 H 09/06/20 16:24 POC Glucose 212 H Assessment and Plan (1) Fungal dermatitis: Status: Acute hospital d#18 79yo F with HTN, DM2, COPD admitted for hypoxia due to COVID-19 pneumonia symptom onset 08/11, test positive 08/14, admit 08/20, ICU 08/22 for ARDS severely hypoxic on HFNC+NRB, now on CPAP BLE DVTs diagnosed 08/28 DNR/DNI 09/02 [facility] status 09/03 # acute hypoxic resp failure - alternating between CPAP and HFNC+NRB at fiO2 100% # COVID-19 pneumonia - continue to taper down methylprednisolone- on 60 mg q12h currently. presented out of window for remdesivir. 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 family updated by phone. Wound care fungal dermatitis. Recommend offloading pressure point changing patient position frequently. Also use mixture of nystatin cream and zinc oxide 20% to the buttock and perineal area affected and changed daily. Discussed with nursing team
[2020-09-06 20:44] LABS: Glucose, Whole Blood 188 mg/dL (60-115)
[2020-09-06] MEDS: Metoprolol Tartrate 25 MG TABLET PO (22:08)
[2020-09-06] MEDS: Insulin Lispro 100 UNIT/ML 3 ML VIAL SUBCUT (22:09)
[2020-09-07] VITALS (13 sets, daily range): BP systolic 111–152; BP diastolic 56–76; PULSE 76–115; RESP 16–37; TEMP 35.9–36.6; O2SAT 82–99
[2020-09-07] MEDS: Enoxaparin Sodium 80 MG/0.8 ML SYRINGE 65 MG SUBCUT ×2 (05:53→17:08)
[2020-09-07 06:21] LABS: Basophils Percent Auto 0.1 % (0-2); Hematocrit 34.1 % (37-47); Hemoglobin 10.8 g/dl (12.0-16.0); Imm Gran Abs Auto 0.11 X10*3/uL (0.00-0.03); Imm Gran Pct Auto 0.8 % (0.0-0.4); Lymphocytes Absolute Auto 0.5 X10*3/uL (1.2-4.9); Lymphocytes Percent Auto 3.6 % (20-40); MANUAL DIFF FLAG SCAN; Mean Corpuscular HGB Conc 31.7 g/dl (31.0-35.0); Mean Corpuscular Hemoglobin 26.3 pg (27.0-33.0); Mean Corpuscular Volume 83.2 fL (80-98); Mean Platelet Volume 9.7 fL (9.4-12.3); Monocytes Absolute Auto 0.1 X10*3/uL (0.1-1.2); Monocytes Percent Auto 0.5 % (2-11); Neutrophils Absolute Auto 13.6 X10*3/uL (2.0-8.3); Platelet Count 415 X10*3/uL (160-400); Red Cell Distribution Width 13.3 % (11.0-16.0); SCAN SMEAR FLAG 1; White Blood Count 14.3 X10*3/uL (4.8-10.8)
[2020-09-07 06:43] LABS: Alanine Aminotransferase 22 U/L (0-31); Albumin Level 2.4 g/dL (3.5-5.0); Alkaline Phosphatase 102 U/L (39-117); Anion Gap 12 (12-20); Aspartate Amino Transferase 19 U/L (5-31); Bilirubin Total 1.4 mg/dL (0.0-1.0); Blood Urea Nitrogen 22 mg/dL (9-16); Calcium 7.9 mg/dL (8.4-10.2); Carbon Dioxide 33 mmol/L (22-29); Chloride 103 mmol/L (96-108); Creatinine Clr Calc Pharmacy 76.3; Estimated Glomerular Filt Rate > 60; Glucose Random 166 mg/dL (60-115); Potassium 4.8 mmol/L (3.3-5.1); Sodium 143 mmol/L (135-145); Total Protein 4.8 g/dL (6.5-8.0)
[2020-09-07 07:49] LABS: SLIDE REVIEW VERIFIED
[2020-09-07 07:55] LABS: Glucose, Whole Blood 182 mg/dL (60-115)
[2020-09-07] MEDS: 0.9 % Sodium Chloride Flush 3 ML SYRINGE IVFLUSH ×3 (09:08→20:48)
[2020-09-07] MEDS: Morphine Sulfate 2 MG/ML CARTRIDGE IVPUSH ×2 (09:10→20:46)
[2020-09-07] MEDS: methylPREDNISolone Sod Succ/PF 125 MG/2 ML VIAL 40 MG IVPUSH ×2 (09:11→20:45)
[2020-09-07] MEDS: Famotidine/PF 20 MG/2 ML VIAL IVPUSH ×2 (09:11→20:49)
[2020-09-07] MEDS: Clopidogrel Bisulfate 75 MG TABLET PO (09:12)
[2020-09-07] MEDS: Insulin Glargine,Hum.rec.anlog 100 UNIT/ML 10 ML VIAL 10 UNIT SUBCUT (09:12)
[2020-09-07] MEDS: Cholecalciferol (Vitamin D3) 25 MCG TABLET 50 MCG PO (09:12)
[2020-09-07] MEDS: Metoprolol Tartrate 25 MG TABLET PO ×2 (09:12→20:48)
[2020-09-07] MEDS: Nystatin Powder 15 GM BOTTLE 1 APPL TOPICAL ×2 (09:14→20:48)
--- NOTE | 2020-09-07 09:32 | P.PNIM_ITS ---
Subjective Subjective Date of Service: 09/07/20 Interval History: Dyspneic but denies pain. Alternating between CPAP and HFNC + NRB, always on fiO2 100%. Hungry- requests mashed potatoes, orange juice, and tomato juice. Physical Exam Vital Signs: Vital Signs: Last Vital Signs Temp 97.8 F 09/07/20 08:00 Pulse 115 H 09/07/20 08:00 Resp 24 H 09/07/20 08:12 BP 152/76 H 09/07/20 08:00 Pulse Ox 86 L 09/07/20 08:00 Body Mass Index 27.3 Gen: moderate respiratory distress but alert and not tired-appearing HEENT: sclera anicteric, moist mucus membranes Neck: supple Lungs: moderate respiratory distress, auscultation deferred due to COVID-19 Heart: normal peripheral pulses Abd: soft, non-tender, non-distended Ext: no cyanosis, clubbing, or edema Skin: warm/well-perfused Neuro: alert and oriented x3, no focal findings Psych: appropriate affect Objective Data Current Medications Generic Name Dose Route Start Last Admin Trade Name Freq PRN Reason Stop Dose Admin Acetaminophen 650 mg 08/20/20 16:18 08/26/20 22:26 Acetaminophen 325 Mg Tablet PO 650 mg Q6H PRN Administration Pain, Mild (Pain Scale 1-3) Clopidogrel Bisulfate 75 mg 08/21/20 09:00 09/07/20 09:12 Clopidogrel Bisulfate 75 Mg Tablet PO 75 mg DAILY LUCIE Administration Docusate Sodium 100 mg 08/20/20 16:18 Docusate Sodium 100 Mg Capsule PO DAILY PRN Constipation Enoxaparin Sodium 65 mg 08/29/20 06:00 09/07/20 05:53 Enoxaparin Sodium 80 Mg/0.8 Ml Syringe 1 mg/kg (65 mg) 65 mg SUBCUT Administration Q12H LUCIE Famotidine 20 mg 08/27/20 21:00 09/07/20 09:11 Famotidine/Pf 20 Mg/2 Ml Vial IVPUSH 20 mg BID [facility] Administration Insulin Glargine 10 unit 09/06/20 09:00 09/07/20 09:12 Insulin Glargine,Hum.Rec.Anlog 100 Unit/Ml 10 Ml Vial SUBCUT 10 unit DAILY [facility] Administration Insulin Human Lispro 0 unit 08/20/20 16:30 09/07/20 09:07 Insulin Lispro 100 Unit/Ml 3 Ml Vial SUBCUT Not Given QIDACHS [facility] Protocol Lisinopril 40 mg 08/21/20 09:00 09/07/20 09:12 Lisinopril 40 Mg Tablet PO 40 mg DAILY [facility] Administration Methylprednisolone Sodium Succinate 40 mg 09/07/20 08:00 09/07/20 09:11 Methylprednisolone Sod Succ/Pf 125 Mg/2 Ml Vial IVPUSH 40 mg Q12H [facility] Administration Metoprolol Tartrate 25 mg 08/29/20 12:55 09/07/20 09:12 Metoprolol Tartrate 25 Mg Tablet PO 25 mg BID [facility] Administration Protocol Morphine Sulfate 2 mg 09/04/20 11:51 09/07/20 09:10 Morphine Sulfate 2 Mg/Ml Cartridge IVPUSH 2 mg Q2H PRN Administration severe pain or discomfort Nystatin 1 appl 08/27/20 11:00 09/07/20 09:14 Nystatin Powder 15 Gm Bottle TOPICAL 1 appl BID [facility] Administration Protocol Ondansetron HCl 4 mg 08/20/20 16:18 Ondansetron Hcl 4 Mg/2 Ml Vial IVPUSH Q8H PRN Nausea and Vomiting Sodium Chloride 3 ml 08/20/20 16:18 09/07/20 09:08 0.9 % Sodium Chloride Flush 3 Ml Syringe IVFLUSH 3 ml QSHIFT [facility] Administration Vitamin D 50 mcg 08/28/20 09:00 09/07/20 09:12 Cholecalciferol (Vitamin D3) 25 Mcg Tablet PO 50 mcg DAILY [facility] Administration Labs CBC & Chem 7: 09/07/20 05:23 09/07/20 05:23 Labs: Laboratory Results - last 24 hr 09/06/20 09/06/20 09/06/20 11:24 16:24 20:37 WBC RBC Hgb Hct MCV MCH MCHC RDW Plt Count MPV Immature Gran % (Auto) Neut % (Auto) Lymph % (Auto) [place] % (Auto) Eos % (Auto) Baso % (Auto) Lymph # (Auto) [place] # (Auto) Eos # (Auto) Baso # (Auto) Abs Immat Gran (auto) Absolute Neuts (auto) Absolute Nucleated RBC Nucleated RBC % (auto) Smear Tech's Comments Sodium Potassium Chloride Carbon Dioxide Anion Gap BUN Creatinine Estim Creat Clear Calc Estimated GFR POC Glucose 188 H 212 H 188 H Random Glucose Calcium Total Bilirubin AST ALT Alkaline Phosphatase C-Reactive Protein Total Protein Albumin 09/07/20 09/07/20 09/07/20 05:23 05:23 07:44 WBC 14.3 H RBC 4.10 L Hgb 10.8 L Hct 34.1 L MCV 83.2 MCH 26.3 L MCHC 31.7 RDW 13.3 Plt Count 415 H MPV 9.7 Immature Gran % (Auto) 0.8 H Neut % (Auto) 95.0 H Lymph % (Auto) 3.6 L [place] % (Auto) 0.5 L Eos % (Auto) 0.0 Baso % (Auto) 0.1 Lymph # (Auto) 0.5 L [place] # (Auto) 0.1 Eos # (Auto) 0.0 Baso # (Auto) 0.0 Abs Immat Gran (auto) 0.11 H Absolute Neuts (auto) 13.6 H Absolute Nucleated RBC 0.000 Nucleated RBC % (auto) 0.0 Smear Tech's Comments VERIFIED Sodium 143 Potassium 4.8 Chloride 103 Carbon Dioxide 33 H Anion Gap 12 BUN 22 H Creatinine 0.51 Estim Creat Clear Calc 76.3 Estimated GFR > 60 POC Glucose 182 H Random Glucose 166 H D Calcium 7.9 L Total Bilirubin 1.4 H AST 19 ALT 22 Alkaline Phosphatase 102 C-Reactive Protein 6.40 H Total Protein 4.8 L Albumin 2.4 L Microbiology Microbiology Results: Microbiology 08/30/20 16:44 Blood - Venous Blood Culture - Final No growth after 5 days. 08/30/20 16:44 Blood - Venous Blood Culture - Final No growth after 5 days. 08/27/20 13:24 Blood - Venous Blood Culture - Final No growth after 5 days. 08/27/20 13:24 Blood - Venous Blood Culture - Final No growth after 5 days. 08/30/20 16:35 Sputum - Suctioned Gram Stain - Final 08/30/20 16:35 Sputum - Suctioned Sputum Culture - Final 08/20/20 10:59 Blood - Venous Blood Culture - Final No growth after 5 days. 08/20/20 10:55 Blood - Venous Blood Culture - Final No growth after 5 days. Assessment and Plan (1) Acute respiratory failure due to COVID-19: Status: Acute (2) T2DM (type 2 diabetes mellitus): Status: Acute Assessment and Plan: hospital d#19 79yo F with HTN, DM2, COPD admitted for hypoxia due to COVID-19 pneumonia symptom onset 08/11, test positive 08/14, admit 08/20, ICU 08/22 for ARDS BLE DVTs diagnosed 08/28 DNR/DNI 09/02 [facility] [place] status 09/03 persistent severe hypoxia, dependent on HFNC+NRB and CPAP # acute hypoxic resp failure - alternating between CPAP and HFNC+NRB at fiO2 100%. awake proning not really practical but will try to get up to chair # COVID-19 pneumonia - continue to taper down methylprednisolone, 60 -> 40 mg q12h. presented out of window for remdesivir. now in postviral inflammatory phase. 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 family updated by phone- pt's grandda vitor Varghese [phone]
[2020-09-07] MEDS: HYDROcodone Bit/Acetam 5/325 TABLET 1 TAB PO ×2 (10:58→14:41)
[2020-09-07 11:43] LABS: Glucose, Whole Blood 261 mg/dL (60-115)
[2020-09-07] MEDS: Insulin Lispro 100 UNIT/ML 3 ML VIAL SUBCUT ×3 (11:56→20:47)
--- NOTE | 2020-09-07 12:36 | MHC.CM.PN ---
Patient is on IV Solu-medrol and O2 at 30 liters with an FIO2 of 100% NRB mask for +COVID. Per morning rounds MD reports patient is more alert today and will be holding off on making patient SPEAR FISHER at this time. CM will continue to follow Patient for discharge needs.
[2020-09-07] MEDS: Zinc Oxide (Triple Paste) 56.7 GM OINT 1 APPL TOPICAL (14:41)
[2020-09-07 16:52] LABS: Glucose, Whole Blood 277 mg/dL (60-115)
[2020-09-07 20:43] LABS: Glucose, Whole Blood 192 mg/dL (60-115)
[2020-09-08] VITALS (13 sets, daily range): BP systolic 94–136; BP diastolic 48–76; PULSE 80–116; RESP 18–25; TEMP 35.5–36.6; O2SAT 88–99
[2020-09-08] MEDS: Morphine Sulfate 2 MG/ML CARTRIDGE IVPUSH ×2 (03:24→20:44)
[2020-09-08] MEDS: Enoxaparin Sodium 80 MG/0.8 ML SYRINGE 65 MG SUBCUT ×2 (03:25→17:38)
[2020-09-08 07:26] LABS: Glucose, Whole Blood 182 mg/dL (60-115)
[2020-09-08] MEDS: 0.9 % Sodium Chloride Flush 3 ML SYRINGE IVFLUSH ×3 (08:06→20:49)
[2020-09-08] MEDS: methylPREDNISolone Sod Succ/PF 125 MG/2 ML VIAL 40 MG IVPUSH ×2 (08:06→20:43)
[2020-09-08] MEDS: Insulin Lispro 100 UNIT/ML 3 ML VIAL SUBCUT ×3 (08:06→17:38)
[2020-09-08] MEDS: Insulin Glargine,Hum.rec.anlog 100 UNIT/ML 10 ML VIAL 12 UNIT SUBCUT (08:06)
[2020-09-08] MEDS: Clopidogrel Bisulfate 75 MG TABLET PO (08:07)
[2020-09-08] MEDS: Nystatin Powder 15 GM BOTTLE 1 APPL TOPICAL ×2 (08:07→20:47)
[2020-09-08] MEDS: Famotidine/PF 20 MG/2 ML VIAL IVPUSH ×2 (08:07→20:45)
[2020-09-08] MEDS: Metoprolol Tartrate 25 MG TABLET PO (08:07)
[2020-09-08] MEDS: Cholecalciferol (Vitamin D3) 25 MCG TABLET 50 MCG PO (08:07)
[2020-09-08 11:23] LABS: Glucose, Whole Blood 236 mg/dL (60-115)
--- NOTE | 2020-09-08 13:32 | P.PNIM_ITS ---
Subjective Subjective Date of Service: 09/08/20 Interval History: SaO2 down to 81% on HFNC + NRB fiO2 100%, recovered to mid-90s with CPAP 10 cm other than dyspnea, c/o some trouble swallowing very alert and makes her needs known Physical Exam Vital Signs: Vital Signs: Last Vital Signs Temp 96 F L 09/08/20 11:06 Pulse 88 09/08/20 11:06 Resp 23 H 09/08/20 11:30 BP 116/55 L 09/08/20 11:06 Pulse Ox 95 09/08/20 11:06 Body Mass Index 27.3 Gen: moderate respiratory distress but alert and not tired-appearing HEENT: sclera anicteric, moist mucus membranes Neck: supple Lungs: moderate respiratory distress, auscultation deferred due to COVID-19 Heart: normal peripheral pulses Abd: soft, non-tender, non-distended Ext: no cyanosis, clubbing, or edema Skin: warm/well-perfused Neuro: alert and oriented x3, no focal findings Psych: appropriate affect Objective Data Current Medications Generic Name Dose Route Start Last Admin Trade Name Freq PRN Reason Stop Dose Admin Acetaminophen 650 mg 08/20/20 16:18 08/26/20 22:26 Acetaminophen 325 Mg Tablet PO 650 mg Q6H PRN Administration Pain, Mild (Pain Scale 1-3) Hydrocodone Bitart/Acetaminophen 1 tab 09/07/20 10:46 09/07/20 14:41 Hydrocodone Bit/Acetam 5/325 Tablet PO 1 tab Q4H PRN Administration moderate pain Clopidogrel Bisulfate 75 mg 08/21/20 09:00 09/08/20 08:07 Clopidogrel Bisulfate 75 Mg Tablet PO 75 mg DAILY [facility]E Administration Docusate Sodium 100 mg 08/20/20 16:18 Docusate Sodium 100 Mg Capsule PO DAILY PRN Constipation Enoxaparin Sodium 65 mg 08/29/20 06:00 09/08/20 03:25 Enoxaparin Sodium 80 Mg/0.8 Ml Syringe 1 mg/kg (65 mg) 65 mg SUBCUT Administration Q12H LUCIE Famotidine 20 mg 08/27/20 21:00 09/08/20 08:07 Famotidine/Pf 20 Mg/2 Ml Vial IVPUSH 20 mg BID [facility] Administration Insulin Glargine 12 unit 09/08/20 09:00 09/08/20 08:06 Insulin Glargine,Hum.Rec.Anlog 100 Unit/Ml 10 Ml Vial SUBCUT 12 unit DAILY [facility] Administration Insulin Human Lispro 0 unit 08/20/20 16:30 09/08/20 12:01 Insulin Lispro 100 Unit/Ml 3 Ml Vial SUBCUT 4 unit QIDACHS [facility] Administration Protocol Lisinopril 40 mg 08/21/20 09:00 09/08/20 08:07 Lisinopril 40 Mg Tablet PO 40 mg DAILY [facility] Administration Methylprednisolone Sodium Succinate 40 mg 09/07/20 08:00 09/08/20 08:06 Methylprednisolone Sod Succ/Pf 125 Mg/2 Ml Vial IVPUSH 40 mg Q12H [facility]E Administration Metoprolol Tartrate 25 mg 08/29/20 12:55 09/08/20 08:07 Metoprolol Tartrate 25 Mg Tablet PO 25 mg BID [facility] Administration Protocol Morphine Sulfate 2 mg 09/04/20 11:51 09/08/20 03:24 Morphine Sulfate 2 Mg/Ml Cartridge IVPUSH 2 mg Q2H PRN Administration severe pain or discomfort Nystatin 1 appl 08/27/20 11:00 09/08/20 08:07 Nystatin Powder 15 Gm Bottle TOPICAL 1 appl BID [facility] Administration Protocol Ondansetron HCl 4 mg 08/20/20 16:18 Ondansetron Hcl 4 Mg/2 Ml Vial IVPUSH Q8H PRN Nausea and Vomiting Sodium Chloride 3 ml 08/20/20 16:18 09/08/20 08:06 0.9 % Sodium Chloride Flush 3 Ml Syringe IVFLUSH 3 ml QSHIFT [facility] Administration Vitamin D 50 mcg 08/28/20 09:00 09/08/20 08:07 Cholecalciferol (Vitamin D3) 25 Mcg Tablet PO 50 mcg DAILY [facility] Administration Zinc Oxide 1 appl 09/07/20 10:47 09/07/20 14:41 Zinc Oxide (Triple Paste) 56.7 Gm Oint TOPICAL 1 appl QID PRN Administration SKIN BREAKDOWN/BUTTOCKS/PERINE Labs CBC & Chem 7: 09/07/20 05:23 09/07/20 05:23 Microbiology Microbiology Results: Microbiology 08/30/20 16:44 Blood - Venous Blood Culture - Final No growth after 5 days. 08/30/20 16:44 Blood - Venous Blood Culture - Final No growth after 5 days. 08/27/20 13:24 Blood - Venous Blood Culture - Final No growth after 5 days. 08/27/20 13:24 Blood - Venous Blood Culture - Final No growth after 5 days. 08/30/20 16:35 Sputum - Suctioned Gram Stain - Final 08/30/20 16:35 Sputum - Suctioned Sputum Culture - Final 08/20/20 10:59 Blood - Venous Blood Culture - Final No growth after 5 days. 08/20/20 10:55 Blood - Venous Blood Culture - Final No growth after 5 days. Assessment and Plan (1) Acute respiratory failure due to COVID-19: Status: Acute (2) T2DM (type 2 diabetes mellitus): Status: Acute Assessment and Plan: hospital d#20 79yo F with HTN, DM2, COPD admitted for hypoxia due to COVID-19 pneumonia symptom onset 08/11, test positive 08/14, admit 08/20, ICU 08/22 for ARDS BLE DVTs diagnosed 08/28 DNR/DNI 09/02 [facility] status 09/03 persistent severe hypoxia, dependent on HFNC+NRB and CPAP # acute hypoxic resp failure - alternating between CPAP 10 cm and HFNC+NRB at fiO2 100%. try to get up to chair. # COVID-19 pneumonia - continue to taper down methylprednisolone, 40 -> 20 mg q12h starting tomorrow. presented out of window for remdesivir. now in postviral inflammatory phase. 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 family updated by phone- pt's granddaughter Jenna Varghese [phone]
[2020-09-08 16:13] LABS: Glucose, Whole Blood 262 mg/dL (60-115)
--- NOTE | 2020-09-08 18:29 | PC.NURSE ---
02 sat this am dropping to 60's on high flow/NRB mask with little exertion. RT at bedside and placed pt back on CPAP. 02 sats maintaining mid 90's throughout shift. liquids offered to pt, can only tolerate a few sips at a time. repositioned q 2 hours to maintain skin integrity. fungal redness to luis area. nystatin applied.
[2020-09-08 19:55] LABS: Glucose, Whole Blood 121 mg/dL (60-115)
[2020-09-09] VITALS (16 sets, daily range): BP systolic 90–138; BP diastolic 54–75; PULSE 80–118; RESP 15–32; TEMP 36.3–36.9; O2SAT 88–97
[2020-09-09] MEDS: Enoxaparin Sodium 80 MG/0.8 ML SYRINGE 65 MG SUBCUT ×2 (03:56→16:35)
[2020-09-09] MEDS: Morphine Sulfate 2 MG/ML CARTRIDGE IVPUSH ×3 (03:57→20:01)
[2020-09-09 06:37] LABS: Basophils Percent Auto 0.1 % (0-2); Eosinophils Percent Auto 0.1 % (0-4); Hematocrit 36.2 % (37-47); Hemoglobin 11.2 g/dl (12.0-16.0); Imm Gran Pct Auto 0.7 % (0.0-0.4); Lymphocytes Absolute Auto 0.9 X10*3/uL (1.2-4.9); Lymphocytes Percent Auto 6.6 % (20-40); MANUAL DIFF FLAG SCAN; Mean Corpuscular HGB Conc 30.9 g/dl (31.0-35.0); Mean Corpuscular Volume 84.2 fL (80-98); Mean Platelet Volume 9.6 fL (9.4-12.3); Monocytes Absolute Auto 0.2 X10*3/uL (0.1-1.2); Monocytes Percent Auto 1.2 % (2-11); Neutrophils Absolute Auto 12.7 X10*3/uL (2.0-8.3); Neutrophils Percent Auto 91.3 % (45-73); Platelet Count 416 X10*3/uL (160-400); Red Cell Distribution Width 13.6 % (11.0-16.0); SCAN SMEAR FLAG 1; White Blood Count 13.9 X10*3/uL (4.8-10.8)
[2020-09-09 07:22] LABS: Alanine Aminotransferase 27 U/L (0-31); Albumin Level 2.6 g/dL (3.5-5.0); Alkaline Phosphatase 98 U/L (39-117); Anion Gap 11 (12-20); Aspartate Amino Transferase 23 U/L (5-31); Bilirubin Total 1.4 mg/dL (0.0-1.0); Blood Urea Nitrogen 18 mg/dL (9-16); C Reactive Protein 2.79 mg/dL (< or = 0.50); Calcium 8.4 mg/dL (8.4-10.2); Carbon Dioxide 37 mmol/L (22-29); Chloride 100 mmol/L (96-108); Creatinine Clr Calc Pharmacy 81.1; Estimated Glomerular Filt Rate > 60; Glucose Random 128 mg/dL (60-115); Magnesium 2.3 mg/dL (1.6-2.6); Potassium 5.1 mmol/L (3.3-5.1); Sodium 143 mmol/L (135-145); Total Protein 5.1 g/dL (6.5-8.0)
[2020-09-09 07:23] LABS: Ferritin 678 ng/mL (10-250)
[2020-09-09 07:33] LABS: Procalcitonin 0.02 ng/mL
[2020-09-09 07:50] LABS: SLIDE REVIEW VERIFIED
[2020-09-09 07:52] LABS: Glucose, Whole Blood 117 mg/dL (60-115)
[2020-09-09] MEDS: Clopidogrel Bisulfate 75 MG TABLET PO (09:38)
[2020-09-09] MEDS: Cholecalciferol (Vitamin D3) 25 MCG TABLET 50 MCG PO (09:38)
[2020-09-09] MEDS: Insulin Glargine,Hum.rec.anlog 100 UNIT/ML 10 ML VIAL 12 UNIT SUBCUT (09:38)
[2020-09-09] MEDS: Famotidine/PF 20 MG/2 ML VIAL IVPUSH ×2 (09:39→20:00)
[2020-09-09] MEDS: 0.9 % Sodium Chloride Flush 3 ML SYRINGE IVFLUSH ×3 (09:43→20:01)
[2020-09-09] MEDS: Metoprolol Tartrate 25 MG TABLET PO (09:48)
[2020-09-09] MEDS: Lidocaine HCl Viscous 2 % 15 ML SOLUTION MUCOUS MEM (10:05)
[2020-09-09] MEDS: Nystatin Powder 15 GM BOTTLE 1 APPL TOPICAL ×2 (11:00→20:01)
[2020-09-09 11:44] LABS: Glucose, Whole Blood 116 mg/dL (60-115)
--- NOTE | 2020-09-09 11:47 | P.PNIM_ITS ---
Subjective Subjective Date of Service: 09/09/20 Interval History: pt interviewed in Turkmen very short of breath but very much alert and hungry otherwise no complaints pt spoke to her family members via Face Time this am and bright, alert, and in good humor Physical Exam Vital Signs: Vital Signs: Last Vital Signs Temp 97.5 F 09/09/20 08:00 Pulse 111 H 09/09/20 09:48 Resp 28 H 09/09/20 10:52 BP 137/65 09/09/20 09:48 Pulse Ox 94 09/09/20 08:00 Body Mass Index 27.3 Gen: moderate respiratory distress on CPAP 10 cm H20 HEENT: sclera anicteric, moist mucus membranes Neck: supple Lungs: moderate respiratory distress, auscultation deferred due to COVID-19 Heart: normal peripheral pulses Abd: soft, non-tender, non-distended Ext: no cyanosis, clubbing, or edema Skin: warm/well-perfused Neuro: alert and oriented x3, no focal findings Psych: appropriate affect Objective Data Current Medications Generic Name Dose Route Start Last Admin Trade Name Caseq PRN Reason Stop Dose Admin Acetaminophen 650 mg 08/20/20 16:18 08/26/20 22:26 Acetaminophen 325 Mg Tablet PO 650 mg Q6H PRN Administration Pain, Mild (Pain Scale 1-3) Hydrocodone Bitart/Acetaminophen 1 tab 09/07/20 10:46 09/07/20 14:41 Hydrocodone Bit/Acetam 5/325 Tablet PO 1 tab Q4H PRN Administration moderate pain Clopidogrel Bisulfate 75 mg 08/21/20 09:00 09/09/20 09:38 Clopidogrel Bisulfate 75 Mg Tablet PO 75 mg DAILY [facility] Administration Docusate Sodium 100 mg 08/20/20 16:18 Docusate Sodium 100 Mg Capsule PO DAILY PRN Constipation Enoxaparin Sodium 65 mg 08/29/20 06:00 09/09/20 03:56 Enoxaparin Sodium 80 Mg/0.8 Ml Syringe 1 mg/kg (65 mg) 65 mg SUBCUT Administration Q12H [facility] Famotidine 20 mg 08/27/20 21:00 09/09/20 09:39 Famotidine/Pf 20 Mg/2 Ml Vial IVPUSH 20 mg BID [facility] Administration Insulin Glargine 12 unit 09/08/20 09:00 09/09/20 09:38 Insulin Glargine,Hum.Rec.Anlog 100 Unit/Ml 10 Ml Vial SUBCUT 12 unit DAILY [facility] Administration Insulin Human Lispro 0 unit 08/20/20 16:30 09/09/20 09:43 Insulin Lispro 100 Unit/Ml 3 Ml Vial SUBCUT Not Given QIDACHS [facility] Protocol Lidocaine HCl 15 ml 09/08/20 14:05 09/09/20 10:05 Lidocaine Hcl Viscous 2 % 15 Ml Solution MUCOUS MEM 15 ml Q3H PRN Administration oral pain Lisinopril 40 mg 08/21/20 09:00 09/09/20 09:47 Lisinopril 40 Mg Tablet PO 40 mg DAILY [facility] Administration Methylprednisolone Sodium Succinate 20 mg 09/09/20 09:00 09/09/20 09:39 Methylprednisolone Sod Succ/Pf 40 Mg/Ml Vial IVPUSH 20 mg Q12H [facility] Administration Metoprolol Tartrate 25 mg 08/29/20 12:55 09/09/20 09:48 Metoprolol Tartrate 25 Mg Tablet PO 25 mg BID [facility] Administration Protocol Morphine Sulfate 2 mg 09/04/20 11:51 09/09/20 10:05 Morphine Sulfate 2 Mg/Ml Cartridge IVPUSH 2 mg Q2H PRN Administration severe pain or discomfort Nystatin 1 appl 08/27/20 11:00 09/09/20 11:00 Nystatin Powder 15 Gm Bottle TOPICAL 1 appl BID [facility] Administration Protocol Ondansetron HCl 4 mg 08/20/20 16:18 Ondansetron Hcl 4 Mg/2 Ml Vial IVPUSH Q8H PRN Nausea and Vomiting Sodium Chloride 3 ml 08/20/20 16:18 09/09/20 09:43 0.9 % Sodium Chloride Flush 3 Ml Syringe IVFLUSH 3 ml QSHIFT [facility] Administration Vitamin D 50 mcg 08/28/20 09:00 09/09/20 09:38 Cholecalciferol (Vitamin D3) 25 Mcg Tablet PO 50 mcg DAILY [facility] Administration Zinc Oxide 1 appl 09/07/20 10:47 09/07/20 14:41 Zinc Oxide (Triple Paste) 56.7 Gm Oint TOPICAL 1 appl QID PRN Administration SKIN BREAKDOWN/BUTTOCKS/PERINE Labs CBC & Chem 7: 09/09/20 05:52 09/09/20 05:52 Microbiology Microbiology Results: Microbiology 08/30/20 16:44 Blood - Venous Blood Culture - Final No growth after 5 days. 08/30/20 16:44 Blood - Venous Blood Culture - Final No growth after 5 days. 08/27/20 13:24 Blood - Venous Blood Culture - Final No growth after 5 days. 08/27/20 13:24 Blood - Venous Blood Culture - Final No growth after 5 days. 08/30/20 16:35 Sputum - Suctioned Gram Stain - Final 08/30/20 16:35 Sputum - Suctioned Sputum Culture - Final 08/20/20 10:59 Blood - Venous Blood Culture - Final No growth after 5 days. 08/20/20 10:55 Blood - Venous Blood Culture - Final No growth after 5 days. Assessment and Plan (1) Acute respiratory failure due to COVID-19: Status: Acute (2) T2DM (type 2 diabetes mellitus): Status: Acute Assessment and Plan: hospital d#21 79yo F with HTN, DM2, COPD admitted to [facility] [place] for hypoxia due to COVID-19 pneumonia symptom onset 08/11, test positive 08/14, admit 08/20, ICU 08/22 for ARDS BLE DVTs diagnosed 08/28 DNR/DNI 09/02 [facility] status 09/03 persistent severe hypoxia, dependent on HFNC+NRB and CPAP # acute hypoxic resp failure - alternating between CPAP 10 cm and HFNC+NRB at fiO2 100%. try to get up to chair. # COVID-19 pneumonia - continue to taper down methylprednisolone, 40 -> 20 mg q12h today. she presented out of window for remdesivir and is now in a prolonged postviral inflammatory phase. # bilateral DVTs - therapeutic LMWH 1 mg/kg bid # hyperNa - resolved # DM2 - Lantus + Humalog # CAD - clopidogrel # HLD - statin # HTN - lisinopril, metoprolol # fungal sacral/perineal dermatitis - nystatin + Zn oxide, appreciate Wound Care consult # FEN - NDD2 regular diet, Glucerna tid. family will bring in some foods from home that she likes. # dispo - we discussed [employer] status on 09/04 but since the pt's mental status is excellent, she is hungry/eating, and she expresses hope that she can improve, we are continuing the current care. - updated pt's granddaughter, her HCP, Jenna Varghese [phone]
[2020-09-09 16:01] LABS: Glucose, Whole Blood 166 mg/dL (60-115)
[2020-09-09] MEDS: Insulin Lispro 100 UNIT/ML 3 ML VIAL SUBCUT ×2 (16:35→20:01)
[2020-09-09 19:55] LABS: Glucose, Whole Blood 225 mg/dL (60-115)
[2020-09-10] VITALS (15 sets, daily range): BP systolic 98–120; BP diastolic 44–59; PULSE 77–127; RESP 12–28; TEMP 36.4–36.7; O2SAT 85–100
[2020-09-10] MEDS: Enoxaparin Sodium 80 MG/0.8 ML SYRINGE 65 MG SUBCUT ×2 (05:13→16:45)
[2020-09-10 07:14] LABS: PCO2 VBG 58 mmHg; pH VBG 7.47 (7.32-7.43)
[2020-09-10 07:15] LABS: Base Excess VBG 16.8 mmol/L; HCO3 VBG 43 mmol/L; PO2 VBG 35 mmHg
[2020-09-10 07:44] LABS: Glucose, Whole Blood 97 mg/dL (60-115)
--- NOTE | 2020-09-10 09:31 | PC.NURSE ---
pt vomited mucus-like liquid with small red blood clots while wearing CPAP this am. RT and t/w in to assess. lungs rhonchorous throughout, similar to yesterday. productive cough noted. md aware. spo02 91-94% on 60L HF and NRB. requires frequent redirection to keep mask on at times. states she is hungry. able to eat and rink with frequent breaks to place NRB back on. a & o x 3. denies pain/discomfort at this time.
[2020-09-10] MEDS: 0.9 % Sodium Chloride Flush 3 ML SYRINGE IVFLUSH ×3 (09:36→21:46)
[2020-09-10] MEDS: Insulin Glargine,Hum.rec.anlog 100 UNIT/ML 10 ML VIAL 12 UNIT SUBCUT (09:36)
[2020-09-10] MEDS: Famotidine/PF 20 MG/2 ML VIAL IVPUSH ×2 (09:37→21:38)
[2020-09-10] MEDS: Cholecalciferol (Vitamin D3) 25 MCG TABLET 50 MCG PO (09:37)
[2020-09-10] MEDS: Clopidogrel Bisulfate 75 MG TABLET PO (09:37)
[2020-09-10] MEDS: Metoprolol Tartrate 25 MG TABLET PO ×2 (09:43→21:41)
[2020-09-10] MEDS: Morphine Sulfate 2 MG/ML CARTRIDGE IVPUSH (09:43)
[2020-09-10] MEDS: Nystatin Powder 15 GM BOTTLE 1 APPL TOPICAL ×2 (09:44→21:45)
[2020-09-10 11:49] LABS: Glucose, Whole Blood 188 mg/dL (60-115)
[2020-09-10] MEDS: Insulin Lispro 100 UNIT/ML 3 ML VIAL SUBCUT ×3 (11:55→21:37)
--- NOTE | 2020-09-10 12:29 | HO.PM.IMPN ---
Subjective Subjective Date of Service: 09/10/20 Interval History: coughing, otherwise not uncomfortable Cardiovascular Cardiovascular: Reports no additional cardiovascular complaints Gastrointestinal Gastrointestinal: Reports no additional gastrointestinal complaints Physical Exam Vital Signs: Vital Signs: Last Vital Signs Temp 98.0 F 09/10/20 08:00 Pulse 122 H 09/10/20 09:43 Resp 18 09/10/20 11:52 BP 98/50 L 09/10/20 09:43 Pulse Ox 85 L 09/10/20 08:00 Body Mass Index 27.3 General: AO X 3, ill appearing Resp: rhonchi CVS: S1,S2,RRR GI: soft, non tender, non distended Neuro: motor grossly intact Psych: appropriate affect Objective Data Current Medications Generic Name Dose Route Start Last Admin Trade Name Freq PRN Reason Stop Dose Admin Acetaminophen 650 mg 08/20/20 16:18 08/26/20 22:26 Acetaminophen 325 Mg Tablet PO 650 mg Q6H PRN Administration Pain, Mild (Pain Scale 1-3) Hydrocodone Bitart/Acetaminophen 1 tab 09/07/20 10:46 09/07/20 14:41 Hydrocodone Bit/Acetam 5/325 Tablet PO 1 tab Q4H PRN Administration moderate pain Clopidogrel Bisulfate 75 mg 08/21/20 09:00 09/10/20 09:37 Clopidogrel Bisulfate 75 Mg Tablet PO 75 mg DAILY [facility] Administration Docusate Sodium 100 mg 08/20/20 16:18 Docusate Sodium 100 Mg Capsule PO DAILY PRN Constipation Enoxaparin Sodium 65 mg 08/29/20 06:00 09/10/20 05:13 Enoxaparin Sodium 80 Mg/0.8 Ml Syringe 1 mg/kg (65 mg) 65 mg SUBCUT Administration Q12H [facility] Famotidine 20 mg 08/27/20 21:00 09/10/20 09:37 Famotidine/Pf 20 Mg/2 Ml Vial IVPUSH 20 mg BID [facility] Administration Insulin Glargine 12 unit 09/08/20 09:00 09/10/20 09:36 Insulin Glargine,Hum.Rec.Anlog 100 Unit/Ml 10 Ml Vial SUBCUT 12 unit DAILY [facility] Administration Insulin Human Lispro 0 unit 08/20/20 16:30 09/10/20 11:55 Insulin Lispro 100 Unit/Ml 3 Ml Vial SUBCUT 2 unit QIDACHS [facility] Administration Protocol Lidocaine HCl 15 ml 09/08/20 14:05 09/09/20 10:05 Lidocaine Hcl Viscous 2 % 15 Ml Solution MUCOUS MEM 15 ml Q3H PRN Administration oral pain Lisinopril 40 mg 08/21/20 09:00 09/10/20 09:37 Lisinopril 40 Mg Tablet PO 40 mg DAILY [facility] Administration Methylprednisolone Sodium Succinate 20 mg 09/09/20 09:00 09/10/20 09:37 Methylprednisolone Sod Succ/Pf 40 Mg/Ml Vial IVPUSH 20 mg Q12H [facility] Administration Metoprolol Tartrate 25 mg 08/29/20 12:55 09/10/20 09:43 Metoprolol Tartrate 25 Mg Tablet PO 25 mg BID [facility] Administration Protocol Morphine Sulfate 2 mg 09/04/20 11:51 09/10/20 09:43 Morphine Sulfate 2 Mg/Ml Cartridge IVPUSH 2 mg Q2H PRN Administration severe pain or discomfort Nystatin 1 appl 08/27/20 11:00 09/10/20 09:44 Nystatin Powder 15 Gm Bottle TOPICAL 1 appl BID [facility] Administration Protocol Ondansetron HCl 4 mg 08/20/20 16:18 Ondansetron Hcl 4 Mg/2 Ml Vial IVPUSH Q8H PRN Nausea and Vomiting Sodium Chloride 3 ml 08/20/20 16:18 09/10/20 09:36 0.9 % Sodium Chloride Flush 3 Ml Syringe IVFLUSH 3 ml QSHIFT [facility] Administration Vitamin D 50 mcg 08/28/20 09:00 09/10/20 09:37 Cholecalciferol (Vitamin D3) 25 Mcg Tablet PO 50 mcg DAILY [facility] Administration Zinc Oxide 1 appl 09/07/20 10:47 09/07/20 14:41 Zinc Oxide (Triple Paste) 56.7 Gm Oint TOPICAL 1 appl QID PRN Administration SKIN BREAKDOWN/BUTTOCKS/PERINE Labs CBC & Chem 7: 09/09/20 05:52 09/09/20 05:52 Microbiology Microbiology Results: Microbiology 08/30/20 16:44 Blood - Venous Blood Culture - Final No growth after 5 days. 08/30/20 16:44 Blood - Venous Blood Culture - Final No growth after 5 days. 08/27/20 13:24 Blood - Venous Blood Culture - Final No growth after 5 days. 08/27/20 13:24 Blood - Venous Blood Culture - Final No growth after 5 days. 08/30/20 16:35 Sputum - Suctioned Gram Stain - Final 08/30/20 16:35 Sputum - Suctioned Sputum Culture - Final 08/20/20 10:59 Blood - Venous Blood Culture - Final No growth after 5 days. 08/20/20 10:55 Blood - Venous Blood Culture - Final No growth after 5 days. Assessment and Plan (1) Acute respiratory failure due to COVID-19: Status: Acute (2) T2DM (type 2 diabetes mellitus): Status: Acute Assessment and Plan: hospital d#21 79yo F with HTN, DM2, COPD admitted to [facility] [place] for hypoxia due to COVID-19 pneumonia symptom onset 08/11, test positive 08/14, admit 08/20, ICU 08/22 for ARDS BLE DVTs diagnosed 08/28 DNR/DNI 09/02 [facility] status 09/03 persistent severe hypoxia, dependent on HFNC+NRB and CPAP acute hypoxic resp failure due to covid pneumonia alternating between CPAP 10 cm and HFNC+NRB at fiO2 100%. try to get up to chair. - continue to taper down methylprednisolone, 20 mg q12h. she presented out of window for remdesivir and is now in a prolonged postviral inflammatory phase. bilateral DVTs - therapeutic LMWH 1 mg/kg bid hyperNa - resolved DM2 - Lantus + Humalog CAD - clopidogrel HLD - statin HTN - lisinopril, metoprolol fungal sacral/perineal dermatitis - nystatin + Zn oxide, appreciate Wound Care consult FEN - NDD2 regular diet, Glucerna tid. family will bring in some foods from home that she likes. abhijeeto had discussed [employer] status on 09/04 but since the pt's mental status is excellent, she is hungry/eating, and she expresses hope that she can improve, continuing the current care. updated pt's granddaughter, her HCP, Jenna Varghese [phone]
[2020-09-10 16:15] LABS: Glucose, Whole Blood 271 mg/dL (60-115)
[2020-09-10 19:54] LABS: Glucose, Whole Blood 186 mg/dL (60-115)
[2020-09-11] VITALS (15 sets, daily range): BP systolic 103–135; BP diastolic 54–66; PULSE 70–120; RESP 18–24; TEMP 36.6–37.1; O2SAT 88–97
[2020-09-11] MEDS: Enoxaparin Sodium 80 MG/0.8 ML SYRINGE 65 MG SUBCUT ×2 (05:58→17:14)
[2020-09-11 07:35] LABS: Glucose, Whole Blood 131 mg/dL (60-115)
[2020-09-11] MEDS: Metoprolol Tartrate 25 MG TABLET PO ×2 (09:50→21:46)
[2020-09-11] MEDS: Cholecalciferol (Vitamin D3) 25 MCG TABLET 50 MCG PO (09:50)
[2020-09-11] MEDS: 0.9 % Sodium Chloride Flush 3 ML SYRINGE IVFLUSH ×2 (09:51→17:14)
[2020-09-11] MEDS: Clopidogrel Bisulfate 75 MG TABLET PO (09:51)
[2020-09-11] MEDS: Famotidine/PF 20 MG/2 ML VIAL IVPUSH ×2 (09:51→21:47)
[2020-09-11] MEDS: Insulin Glargine,Hum.rec.anlog 100 UNIT/ML 10 ML VIAL 12 UNIT SUBCUT (09:51)
[2020-09-11] MEDS: Nystatin Powder 15 GM BOTTLE 1 APPL TOPICAL ×2 (10:16→21:47)
[2020-09-11 11:14] LABS: Glucose, Whole Blood 174 mg/dL (60-115)
[2020-09-11] MEDS: Insulin Lispro 100 UNIT/ML 3 ML VIAL SUBCUT ×3 (12:01→21:46)
--- NOTE | 2020-09-11 14:32 | HO.PM.IMPN ---
Subjective Subjective Date of Service: 09/11/20 Interval History: tired Cardiovascular Cardiovascular: Reports no additional cardiovascular complaints Respiratory Respiratory: Reports no additional respiratory complaints Physical Exam Vital Signs: Vital Signs: Last Vital Signs Temp 98.7 F 09/11/20 11:39 Pulse 70 09/11/20 11:39 Resp 20 09/11/20 11:44 BP 135/66 09/11/20 11:39 Pulse Ox 95 09/11/20 11:39 Body Mass Index 27.3 General: Alert, ill appearing Resp: diminished CVS: S1,S2,RRR GI: soft, non tender, non distended Neuro: motor grossly intact Psych: appropriate affect Objective Data Current Medications Generic Name Dose Route Start Last Admin Trade Name Freq PRN Reason Stop Dose Admin Acetaminophen 650 mg 08/20/20 16:18 08/26/20 22:26 Acetaminophen 325 Mg Tablet PO 650 mg Q6H PRN Administration Pain, Mild (Pain Scale 1-3) Hydrocodone Bitart/Acetaminophen 1 tab 09/07/20 10:46 09/07/20 14:41 Hydrocodone Bit/Acetam 5/325 Tablet PO 1 tab Q4H PRN Administration moderate pain Clopidogrel Bisulfate 75 mg 08/21/20 09:00 09/11/20 09:51 Clopidogrel Bisulfate 75 Mg Tablet PO 75 mg DAILY [facility] Administration Docusate Sodium 100 mg 08/20/20 16:18 Docusate Sodium 100 Mg Capsule PO DAILY PRN Constipation Enoxaparin Sodium 65 mg 08/29/20 06:00 09/11/20 05:58 Enoxaparin Sodium 80 Mg/0.8 Ml Syringe 1 mg/kg (65 mg) 65 mg SUBCUT Administration Q12H [facility] Famotidine 20 mg 08/27/20 21:00 09/11/20 09:51 Famotidine/Pf 20 Mg/2 Ml Vial IVPUSH 20 mg BID [facility] Administration Insulin Glargine 12 unit 09/08/20 09:00 09/11/20 09:51 Insulin Glargine,Hum.Rec.Anlog 100 Unit/Ml 10 Ml Vial SUBCUT 12 unit DAILY [facility] Administration Insulin Human Lispro 0 unit 08/20/20 16:30 09/11/20 12:01 Insulin Lispro 100 Unit/Ml 3 Ml Vial SUBCUT 2 unit QIDACHS [facility] Administration Protocol Lidocaine HCl 15 ml 09/08/20 14:05 09/09/20 10:05 Lidocaine Hcl Viscous 2 % 15 Ml Solution MUCOUS MEM 15 ml Q3H PRN Administration oral pain Lisinopril 40 mg 08/21/20 09:00 09/11/20 09:50 Lisinopril 40 Mg Tablet PO 40 mg DAILY [facility] Administration Methylprednisolone Sodium Succinate 20 mg 09/09/20 09:00 09/11/20 09:51 Methylprednisolone Sod Succ/Pf 40 Mg/Ml Vial IVPUSH 20 mg Q12H [facility] Administration Metoprolol Tartrate 25 mg 08/29/20 12:55 09/11/20 09:50 Metoprolol Tartrate 25 Mg Tablet PO 25 mg BID [facility] Administration Protocol Morphine Sulfate 2 mg 09/04/20 11:51 09/10/20 09:43 Morphine Sulfate 2 Mg/Ml Cartridge IVPUSH 2 mg Q2H PRN Administration severe pain or discomfort Nystatin 1 appl 08/27/20 11:00 09/11/20 10:16 Nystatin Powder 15 Gm Bottle TOPICAL 1 appl BID [facility] Administration Protocol Ondansetron HCl 4 mg 08/20/20 16:18 Ondansetron Hcl 4 Mg/2 Ml Vial IVPUSH Q8H PRN Nausea and Vomiting Sodium Chloride 3 ml 08/20/20 16:18 09/11/20 09:51 0.9 % Sodium Chloride Flush 3 Ml Syringe IVFLUSH 3 ml QSHIFT [facility] Administration Vitamin D 50 mcg 08/28/20 09:00 09/11/20 09:50 Cholecalciferol (Vitamin D3) 25 Mcg Tablet PO 50 mcg DAILY [facility] Administration Zinc Oxide 1 appl 09/07/20 10:47 09/07/20 14:41 Zinc Oxide (Triple Paste) 56.7 Gm Oint TOPICAL 1 appl QID PRN Administration SKIN BREAKDOWN/BUTTOCKS/PERINE Labs CBC & Chem 7: 09/09/20 05:52 09/09/20 05:52 Microbiology Microbiology Results: Microbiology 08/30/20 16:44 Blood - Venous Blood Culture - Final No growth after 5 days. 08/30/20 16:44 Blood - Venous Blood Culture - Final No growth after 5 days. 08/27/20 13:24 Blood - Venous Blood Culture - Final No growth after 5 days. 08/27/20 13:24 Blood - Venous Blood Culture - Final No growth after 5 days. 08/30/20 16:35 Sputum - Suctioned Gram Stain - Final 08/30/20 16:35 Sputum - Suctioned Sputum Culture - Final 08/20/20 10:59 Blood - Venous Blood Culture - Final No growth after 5 days. 08/20/20 10:55 Blood - Venous Blood Culture - Final No growth after 5 days. Assessment and Plan (1) Acute respiratory failure due to COVID-19: Status: Acute (2) T2DM (type 2 diabetes mellitus): Status: Acute Assessment and Plan: hospital d#21 79yo F with HTN, DM2, COPD admitted to [facility] [place] for hypoxia due to COVID-19 pneumonia symptom onset 08/11, test positive 08/14, admit 08/20, ICU 08/22 for ARDS BLE DVTs diagnosed 08/28 DNR/DNI 09/02 [facility] [place] status 09/03 persistent severe hypoxia, dependent on HFNC+NRB and CPAP acute hypoxic resp failure due to covid pneumonia alternating between CPAP 10 cm and HFNC+NRB at fiO2 100%. try to get up to chair. - continue to taper down methylprednisolone, 20 mg q12h. she presented out of window for remdesivir and is now in a prolonged postviral inflammatory phase. continues to require high o2, family to monitor comfort level and determine if/when transition to comfort measures will be appropriate bilateral DVTs - therapeutic LMWH 1 mg/kg bid hyperNa - resolved DM2 - Lantus + Humalog CAD - clopidogrel HLD - statin HTN - lisinopril, metoprolol fungal sacral/perineal dermatitis - nystatin + Zn oxide, appreciate Wound Care consult FEN - NDD2 regular diet, Glucerna tid. family will bring in some foods from home that she likes.
[2020-09-11 16:45] LABS: Glucose, Whole Blood 302 mg/dL (60-115)
--- NOTE | 2020-09-11 18:41 | PC.NURSE ---
facetimed after dinner with HCP, patient with improved spirits and alertness.
[2020-09-11 20:19] LABS: Glucose, Whole Blood 333 mg/dL (60-115)
--- NOTE | 2020-09-11 22:12 | PC.NURSE ---
TLC TO R IJ REMOVED. CATHETER TIP INTACT. OCCLUSIVE DRESSING APPLIED. PRESSURE HELD. NO IMMEDIATE COMPLICATIONS NOTED, TOLERATED WELL. HOB LOWERED TOLERATED. SpO2 90% VIA CPAP 10/100%, HR 100s.
[2020-09-12] VITALS (15 sets, daily range): BP systolic 90–157; BP diastolic 50–81; PULSE 90–112; RESP 16–27; TEMP 36.1–36.7; O2SAT 90–98
[2020-09-12] MEDS: 0.9 % Sodium Chloride Flush 3 ML SYRINGE IVFLUSH ×4 (00:02→22:28)
[2020-09-12] MEDS: Enoxaparin Sodium 80 MG/0.8 ML SYRINGE 65 MG SUBCUT ×2 (05:26→17:31)
[2020-09-12 08:25] LABS: Glucose, Whole Blood 169 mg/dL (60-115)
[2020-09-12] MEDS: Insulin Glargine,Hum.rec.anlog 100 UNIT/ML 10 ML VIAL 12 UNIT SUBCUT (08:41)
[2020-09-12] MEDS: Insulin Lispro 100 UNIT/ML 3 ML VIAL SUBCUT ×3 (08:41→17:31)
[2020-09-12] MEDS: Metoprolol Tartrate 25 MG TABLET PO ×2 (08:42→21:56)
[2020-09-12] MEDS: Cholecalciferol (Vitamin D3) 25 MCG TABLET 50 MCG PO (08:42)
[2020-09-12] MEDS: Clopidogrel Bisulfate 75 MG TABLET PO (08:42)
[2020-09-12] MEDS: Nystatin Powder 15 GM BOTTLE 1 APPL TOPICAL ×2 (08:43→22:28)
[2020-09-12] MEDS: Famotidine/PF 20 MG/2 ML VIAL IVPUSH ×2 (08:43→22:28)
--- NOTE | 2020-09-12 11:50 | P.PNIM_ITS ---
Subjective Subjective Date of Service: 09/12/20 Interval History: told meño she feels well, wants to go home, has good appetitie Cardiovascular Cardiovascular: Reports no additional cardiovascular complaints Respiratory Respiratory: Reports no additional respiratory complaints Physical Exam Vital Signs: Vital Signs: Last Vital Signs Temp 97.7 F 09/12/20 08:00 Pulse 90 09/12/20 08:00 Resp 22 H 09/12/20 11:24 BP 90/50 L 09/12/20 08:00 Pulse Ox 90 L 09/12/20 08:00 Body Mass Index 27.3 General: AO X 3, no acute distress Resp: diminished CVS: S1,S2,RRR GI: soft, non tender, non distended Neuro: motor grossly intact Psych: appropriate affect Objective Data Current Medications Generic Name Dose Route Start Last Admin Trade Name Freq PRN Reason Stop Dose Admin Acetaminophen 650 mg 08/20/20 16:18 08/26/20 22:26 Acetaminophen 325 Mg Tablet PO 650 mg Q6H PRN Administration Pain, Mild (Pain Scale 1-3) Clopidogrel Bisulfate 75 mg 08/21/20 09:00 09/12/20 08:42 Clopidogrel Bisulfate 75 Mg Tablet PO 75 mg DAILY [facility] Administration Docusate Sodium 100 mg 08/20/20 16:18 Docusate Sodium 100 Mg Capsule PO DAILY PRN Constipation Enoxaparin Sodium 65 mg 08/29/20 06:00 09/12/20 05:26 Enoxaparin Sodium 80 Mg/0.8 Ml Syringe 1 mg/kg (65 mg) 65 mg SUBCUT Administration Q12H [facility] Famotidine 20 mg 08/27/20 21:00 09/12/20 08:43 Famotidine/Pf 20 Mg/2 Ml Vial IVPUSH 20 mg BID [facility] Administration Insulin Glargine 12 unit 09/08/20 09:00 09/12/20 08:41 Insulin Glargine,Hum.Rec.Anlog 100 Unit/Ml 10 Ml Vial SUBCUT 12 unit DAILY [facility] Administration Insulin Human Lispro 0 unit 08/20/20 16:30 09/12/20 08:41 Insulin Lispro 100 Unit/Ml 3 Ml Vial SUBCUT 2 unit QIDACHS [facility] Administration Protocol Lidocaine HCl 15 ml 09/08/20 14:05 09/09/20 10:05 Lidocaine Hcl Viscous 2 % 15 Ml Solution MUCOUS MEM 15 ml Q3H PRN Administration oral pain Lisinopril 40 mg 08/21/20 09:00 09/12/20 08:45 Lisinopril 40 Mg Tablet PO Not Given DAILY [facility] Methylprednisolone Sodium Succinate 20 mg 09/09/20 09:00 09/12/20 08:43 Methylprednisolone Sod Succ/Pf 40 Mg/Ml Vial IVPUSH 20 mg Q12H [facility] Administration Metoprolol Tartrate 25 mg 08/29/20 12:55 09/12/20 08:42 Metoprolol Tartrate 25 Mg Tablet PO 25 mg BID [facility] Administration Protocol Morphine Sulfate 2 mg 09/04/20 11:51 09/10/20 09:43 Morphine Sulfate 2 Mg/Ml Cartridge IVPUSH 2 mg Q2H PRN Administration severe pain or discomfort Nystatin 1 appl 08/27/20 11:00 09/12/20 08:43 Nystatin Powder 15 Gm Bottle TOPICAL 1 appl BID [facility] Administration Protocol Ondansetron HCl 4 mg 08/20/20 16:18 Ondansetron Hcl 4 Mg/2 Ml Vial IVPUSH Q8H PRN Nausea and Vomiting Sodium Chloride 3 ml 08/20/20 16:18 09/12/20 08:43 0.9 % Sodium Chloride Flush 3 Ml Syringe IVFLUSH 3 ml QSHIFT [facility] Administration Vitamin D 50 mcg 08/28/20 09:00 09/12/20 08:42 Cholecalciferol (Vitamin D3) 25 Mcg Tablet PO 50 mcg DAILY [facility] Administration Zinc Oxide 1 appl 09/07/20 10:47 09/07/20 14:41 Zinc Oxide (Triple Paste) 56.7 Gm Oint TOPICAL 1 appl QID PRN Administration SKIN BREAKDOWN/BUTTOCKS/PERINE Labs CBC & Chem 7: 09/09/20 05:52 09/09/20 05:52 Microbiology Microbiology Results: Microbiology 08/30/20 16:44 Blood - Venous Blood Culture - Final No growth after 5 days. 08/30/20 16:44 Blood - Venous Blood Culture - Final No growth after 5 days. 08/27/20 13:24 Blood - Venous Blood Culture - Final No growth after 5 days. 08/27/20 13:24 Blood - Venous Blood Culture - Final No growth after 5 days. 08/30/20 16:35 Sputum - Suctioned Gram Stain - Final 08/30/20 16:35 Sputum - Suctioned Sputum Culture - Final 08/20/20 10:59 Blood - Venous Blood Culture - Final No growth after 5 days. 08/20/20 10:55 Blood - Venous Blood Culture - Final No growth after 5 days. Assessment and Plan (1) Acute respiratory failure due to COVID-19: Status: Acute (2) T2DM (type 2 diabetes mellitus): Status: Acute Assessment and Plan: hospital d#21 79yo F with HTN, DM2, COPD admitted to [facility] [place] for hypoxia due to COVID-19 pneumonia symptom onset 08/11, test positive 08/14, admit 08/20, ICU 08/22 for ARDS BLE DVTs diagnosed 08/28 DNR/DNI 09/02 C status 09/03 persistent severe hypoxia, dependent on HFNC+NRB and CPAP acute hypoxic resp failure due to covid pneumonia alternating between CPAP 10 cm and HFNC+NRB at fiO2 100%. try to get up to chair. - continue to tapered down methylprednisolone, 20 mg q12h. she presented out of window for remdesivir and is now in a prolonged postviral inflammatory phase. continues to require high o2, family to monitor comfort level and determine if/when transition to comfort measures will be appropriate, currently still appears comfortable bilateral DVTs - therapeutic LMWH 1 mg/kg bid hyperNa - resolved DM2 - Lantus + Humalog CAD - clopidogrel HLD - statin HTN - lisinopril, metoprolol fungal sacral/perineal dermatitis - nystatin + Zn oxide, appreciate Wound Care consult FEN - NDD2 regular diet, Glucerna tid.
--- NOTE | 2020-09-12 11:56 | MHC.CM.PN ---
Patient continues to require O2 at 40 liters high flow with FIO2 at 100% NRB mask and also using CPAP intermittently for +COVID on 08/14/20. Also on IV Solu-medrol and IV MS for resp distress. Discharge plan is home no services once O2 needs have decreased. CM will continue to follow patient for discharge needs.
[2020-09-12 12:03] LABS: Glucose, Whole Blood 296 mg/dL (60-115)
[2020-09-12 16:31] LABS: Glucose, Whole Blood 362 mg/dL (60-115)
[2020-09-12 20:47] LABS: Glucose, Whole Blood 98 mg/dL (60-115)
[2020-09-13] VITALS (15 sets, daily range): BP systolic 84–128; BP diastolic 44–70; PULSE 96–123; RESP 18–36; TEMP 36.1–36.3; O2SAT 82–100
--- NOTE | 2020-09-13 02:06 | PC.NURSE ---
CARE ASSUMED 23:15...HS 100% NRB MASK AND HI-KAYLEY CANNULA 100%/60 L/M..NO DISTRESS AT REST..SAO2 90-91%...INITIALLY HAD REFUSED HS CPAP ..SAO2 DECREASED TO 85-86% ASLEEP...RT PRESENT AND PLACED ON CPAP WITH ASSENT..NO DISTRESS ON CPAP...SAO2 93%
[2020-09-13] MEDS: Enoxaparin Sodium 80 MG/0.8 ML SYRINGE 65 MG SUBCUT ×2 (05:40→18:42)
[2020-09-13 05:59] LABS: MANUAL DIFF FLAG NO
[2020-09-13 06:10] LABS: Basophils Percent Auto 0.2 % (0-2); Eosinophils Absolute Auto 0.1 X10*3/uL (0.0-0.4); Eosinophils Percent Auto 0.4 % (0-4); Hemoglobin 10.8 g/dl (12.0-16.0); Imm Gran Abs Auto 0.22 X10*3/uL (0.00-0.03); Imm Gran Pct Auto 1.8 % (0.0-0.4); Lymphocytes Absolute Auto 0.9 X10*3/uL (1.2-4.9); Mean Corpuscular HGB Conc 30.9 g/dl (31.0-35.0); Mean Corpuscular Hemoglobin 25.7 pg (27.0-33.0); Mean Corpuscular Volume 83.1 fL (80-98); Mean Platelet Volume 9.5 fL (9.4-12.3); Monocytes Absolute Auto 0.2 X10*3/uL (0.1-1.2); Monocytes Percent Auto 1.2 % (2-11); Neutrophils Percent Auto 89.4 % (45-73); Platelet Count 299 X10*3/uL (160-400); Red Blood Count 4.21 X10*6/uL (4.20-5.50); Red Cell Distribution Width 13.9 % (11.0-16.0); White Blood Count 12.3 X10*3/uL (4.8-10.8)
[2020-09-13 06:27] LABS: D Dimer 1456 NG/ML
[2020-09-13 06:31] LABS: Anion Gap 16 (12-20); Blood Urea Nitrogen 15 mg/dL (9-16); Carbon Dioxide 31 mmol/L (22-29); Chloride 99 mmol/L (96-108); Creatinine Clr Calc Pharmacy 81.1; Estimated Glomerular Filt Rate > 60; Glucose Fasting 139 mg/dL (60-99); Potassium 4.7 mmol/L (3.3-5.1); Sodium 141 mmol/L (135-145)
[2020-09-13] MEDS: 0.9 % Sodium Chloride Flush 3 ML SYRINGE IVFLUSH ×3 (07:50→22:01)
[2020-09-13 08:03] LABS: Glucose, Whole Blood 132 mg/dL (60-115)
[2020-09-13] MEDS: Cholecalciferol (Vitamin D3) 25 MCG TABLET 50 MCG PO (09:57)
[2020-09-13] MEDS: Metoprolol Tartrate 25 MG TABLET PO (09:57)
[2020-09-13] MEDS: Clopidogrel Bisulfate 75 MG TABLET PO (09:57)
[2020-09-13] MEDS: Famotidine/PF 20 MG/2 ML VIAL IVPUSH ×2 (09:57→22:01)
--- NOTE | 2020-09-13 09:57 | HO.PM.IMPN ---
Subjective Subjective Date of Service: 09/13/20 Interval History: secretions bothering her Cardiovascular Cardiovascular: Reports no additional cardiovascular complaints Gastrointestinal Gastrointestinal: Reports no additional gastrointestinal complaints Physical Exam Vital Signs: Vital Signs: Last Vital Signs Temp 97.2 F 09/13/20 08:00 Pulse 109 H 09/13/20 08:00 Resp 20 09/13/20 09:22 BP 123/68 09/13/20 08:00 Pulse Ox 99 09/13/20 08:00 Body Mass Index 27.3 General: AO X 3, ill appearing Resp: rhonchi CVS: S1,S2,RRR GI: soft, non tender, non distended Neuro: motor grossly intact Psych: appropriate affect Objective Data Current Medications Generic Name Dose Route Start Last Admin Trade Name Freq PRN Reason Stop Dose Admin Acetaminophen 650 mg 08/20/20 16:18 08/26/20 22:26 Acetaminophen 325 Mg Tablet PO 650 mg Q6H PRN Administration Pain, Mild (Pain Scale 1-3) Clopidogrel Bisulfate 75 mg 08/21/20 09:00 09/12/20 08:42 Clopidogrel Bisulfate 75 Mg Tablet PO 75 mg DAILY [facility]CIE Administration Docusate Sodium 100 mg 08/20/20 16:18 Docusate Sodium 100 Mg Capsule PO DAILY PRN Constipation Enoxaparin Sodium 65 mg 08/29/20 06:00 09/13/20 05:40 Enoxaparin Sodium 80 Mg/0.8 Ml Syringe 1 mg/kg (65 mg) 65 mg SUBCUT Administration Q12H [facility] Famotidine 20 mg 08/27/20 21:00 09/12/20 22:28 Famotidine/Pf 20 Mg/2 Ml Vial IVPUSH 20 mg BID [facility]CIE Administration Insulin Glargine 12 unit 09/08/20 09:00 09/12/20 08:41 Insulin Glargine,Hum.Rec.Anlog 100 Unit/Ml 10 Ml Vial SUBCUT 12 unit DAILY [facility] Administration Insulin Human Lispro 0 unit 08/20/20 16:30 09/13/20 08:43 Insulin Lispro 100 Unit/Ml 3 Ml Vial SUBCUT Not Given QIDACHS [facility] Protocol Lidocaine HCl 15 ml 09/08/20 14:05 09/09/20 10:05 Lidocaine Hcl Viscous 2 % 15 Ml Solution MUCOUS MEM 15 ml Q3H PRN Administration oral pain Lisinopril 40 mg 08/21/20 09:00 09/12/20 08:45 Lisinopril 40 Mg Tablet PO Not Given DAILY [facility] Methylprednisolone Sodium Succinate 20 mg 09/09/20 09:00 09/12/20 21:50 Methylprednisolone Sod Succ/Pf 40 Mg/Ml Vial IVPUSH 20 mg Q12H [facility] Administration Metoprolol Tartrate 25 mg 08/29/20 12:55 09/12/20 21:56 Metoprolol Tartrate 25 Mg Tablet PO 25 mg BID [facility] Administration Protocol Morphine Sulfate 2 mg 09/04/20 11:51 09/10/20 09:43 Morphine Sulfate 2 Mg/Ml Cartridge IVPUSH 2 mg Q2H PRN Administration severe pain or discomfort Nystatin 1 appl 08/27/20 11:00 09/12/20 22:28 Nystatin Powder 15 Gm Bottle TOPICAL 1 appl BID [facility] Administration Protocol Ondansetron HCl 4 mg 08/20/20 16:18 Ondansetron Hcl 4 Mg/2 Ml Vial IVPUSH Q8H PRN Nausea and Vomiting Sodium Chloride 3 ml 08/20/20 16:18 09/13/20 07:50 0.9 % Sodium Chloride Flush 3 Ml Syringe IVFLUSH 3 ml QSHIFT [facility] Administration Vitamin D 50 mcg 08/28/20 09:00 09/12/20 08:42 Cholecalciferol (Vitamin D3) 25 Mcg Tablet PO 50 mcg DAILY [facility] Administration Zinc Oxide 1 appl 09/07/20 10:47 09/07/20 14:41 Zinc Oxide (Triple Paste) 56.7 Gm Oint TOPICAL 1 appl QID PRN Administration SKIN BREAKDOWN/BUTTOCKS/PERINE Labs CBC & Chem 7: 09/13/20 05:28 09/13/20 05:28 Microbiology Microbiology Results: Microbiology 08/30/20 16:44 Blood - Venous Blood Culture - Final No growth after 5 days. 08/30/20 16:44 Blood - Venous Blood Culture - Final No growth after 5 days. 08/27/20 13:24 Blood - Venous Blood Culture - Final No growth after 5 days. 08/27/20 13:24 Blood - Venous Blood Culture - Final No growth after 5 days. 08/30/20 16:35 Sputum - Suctioned Gram Stain - Final 08/30/20 16:35 Sputum - Suctioned Sputum Culture - Final 08/20/20 10:59 Blood - Venous Blood Culture - Final No growth after 5 days. 08/20/20 10:55 Blood - Venous Blood Culture - Final No growth after 5 days. Assessment and Plan (1) Acute respiratory failure due to COVID-19: Status: Acute (2) T2DM (type 2 diabetes mellitus): Status: Acute Assessment and Plan: hospital d#21 79yo F with HTN, DM2, COPD admitted to [facility] for hypoxia due to COVID-19 pneumonia symptom onset 08/11, test positive 08/14, admit 08/20, ICU 08/22 for ARDS BLE DVTs diagnosed 08/28 DNR/DNI 09/02 C status 09/03 persistent severe hypoxia acute hypoxic resp failure due to covid pneumonia continue to tapered down methylprednisolone, 20 mg q24h. she presented out of window for remdesivir and is now in a prolonged postviral inflammatory phase. continues to require high o2, family to monitor comfort level and determine if/when transition to comfort measures will be appropriate, currently still appears comfortable wean o2 as tolerated bilateral DVTs - therapeutic LMWH 1 mg/kg bid hyperNa - resolved DM2 - Lantus + Humalog CAD - clopidogrel HLD - statin HTN - lisinopril, metoprolol fungal sacral/perineal dermatitis - nystatin + Zn oxide, appreciate Wound Care consult FEN - NDD2 regular diet, Glucerna tid.
[2020-09-13] MEDS: Insulin Glargine,Hum.rec.anlog 100 UNIT/ML 10 ML VIAL 12 UNIT SUBCUT (09:58)
[2020-09-13] MEDS: Nystatin Powder 15 GM BOTTLE 1 APPL TOPICAL ×2 (10:23→22:02)
[2020-09-13 11:38] LABS: Glucose, Whole Blood 307 mg/dL (60-115)
[2020-09-13] MEDS: Insulin Lispro 100 UNIT/ML 3 ML VIAL SUBCUT ×2 (11:51→22:01)
--- NOTE | 2020-09-13 13:25 | MHC.CLN ---
F/U PO INTAKE 50% DIET RX; GRD/M/S -APPROPRIATE PT RECEIVES GLUCERNA TID TO INCREASE KCALS FOLLOWING
[2020-09-13 16:38] LABS: Glucose, Whole Blood 126 mg/dL (60-115)
[2020-09-13 20:37] LABS: Glucose, Whole Blood 257 mg/dL (60-115)
[2020-09-13] MEDS: 0.9 % Sodium Chloride 500 ML 250 ML IV (22:34)
--- NOTE | 2020-09-13 23:01 | PC.NURSE ---
Pt was recorded to have a Bp of 84/44. Md advised to reposition patient and retake BP. BP was 87/54. Md ordered 500 normal saline running @ 250.
[2020-09-14] VITALS (14 sets, daily range): BP systolic 98–116; BP diastolic 41–71; PULSE 100–120; RESP 14–28; TEMP 36–37.5; O2SAT 88–99
[2020-09-14] MEDS: Enoxaparin Sodium 80 MG/0.8 ML SYRINGE 65 MG SUBCUT ×2 (05:26→16:53)
[2020-09-14 07:56] LABS: Glucose, Whole Blood 91 mg/dL (60-115)
[2020-09-14] MEDS: Insulin Glargine,Hum.rec.anlog 100 UNIT/ML 10 ML VIAL 12 UNIT SUBCUT (09:25)
[2020-09-14] MEDS: 0.9 % Sodium Chloride Flush 3 ML SYRINGE IVFLUSH ×3 (09:26→20:59)
[2020-09-14] MEDS: Famotidine/PF 20 MG/2 ML VIAL IVPUSH ×2 (09:27→20:58)
[2020-09-14] MEDS: Cholecalciferol (Vitamin D3) 25 MCG TABLET 50 MCG PO (09:28)
[2020-09-14] MEDS: Clopidogrel Bisulfate 75 MG TABLET PO (09:28)
[2020-09-14] MEDS: Metoprolol Tartrate 25 MG TABLET PO (09:49)
[2020-09-14] MEDS: Nystatin Powder 15 GM BOTTLE 1 APPL TOPICAL ×2 (10:08→21:12)
--- NOTE | 2020-09-14 11:18 | HO.PM.IMPN ---
Subjective Subjective Date of Service: 09/14/20 Interval History: sob Cardiovascular Cardiovascular: Reports no additional cardiovascular complaints Gastrointestinal Gastrointestinal: Reports no additional gastrointestinal complaints Physical Exam Vital Signs: Vital Signs: Last Vital Signs Temp 99.5 F 09/14/20 08:00 Pulse 120 H 09/14/20 09:49 Resp 24 H 09/14/20 08:00 BP 98/50 L 09/14/20 09:49 Pulse Ox 88 L 09/14/20 08:00 Body Mass Index 27.3 General: AO X 3, ill appearing Resp: rhonchi CVS: S1,S2,RRR GI: soft, non tender, non distended Neuro: motor grossly intact Psych: appropriate affect Objective Data Current Medications Generic Name Dose Route Start Last Admin Trade Name Freq PRN Reason Stop Dose Admin Acetaminophen 650 mg 08/20/20 16:18 08/26/20 22:26 Acetaminophen 325 Mg Tablet PO 650 mg Q6H PRN Administration Pain, Mild (Pain Scale 1-3) Clopidogrel Bisulfate 75 mg 08/21/20 09:00 09/14/20 09:28 Clopidogrel Bisulfate 75 Mg Tablet PO 75 mg DAILY [facility] Administration Docusate Sodium 100 mg 08/20/20 16:18 Docusate Sodium 100 Mg Capsule PO DAILY PRN Constipation Enoxaparin Sodium 65 mg 08/29/20 06:00 09/14/20 05:26 Enoxaparin Sodium 80 Mg/0.8 Ml Syringe 1 mg/kg (65 mg) 65 mg SUBCUT Administration Q12H [facility] Famotidine 20 mg 08/27/20 21:00 09/14/20 09:27 Famotidine/Pf 20 Mg/2 Ml Vial IVPUSH 20 mg BID [facility]CIE Administration Insulin Glargine 12 unit 09/08/20 09:00 09/14/20 09:25 Insulin Glargine,Hum.Rec.Anlog 100 Unit/Ml 10 Ml Vial SUBCUT 12 unit DAILY [facility] Administration Insulin Human Lispro 0 unit 08/20/20 16:30 09/14/20 09:26 Insulin Lispro 100 Unit/Ml 3 Ml Vial SUBCUT Not Given QIDACHS [facility] Protocol Lidocaine HCl 15 ml 09/08/20 14:05 09/09/20 10:05 Lidocaine Hcl Viscous 2 % 15 Ml Solution MUCOUS MEM 15 ml Q3H PRN Administration oral pain Lisinopril 40 mg 08/21/20 09:00 09/13/20 09:57 Lisinopril 40 Mg Tablet PO 40 mg DAILY [facility] Administration Methylprednisolone Sodium Succinate 20 mg 09/13/20 10:00 09/14/20 09:27 Methylprednisolone Sod Succ/Pf 40 Mg/Ml Vial IVPUSH 20 mg Q24H [facility] Administration Metoprolol Tartrate 25 mg 08/29/20 12:55 09/14/20 09:49 Metoprolol Tartrate 25 Mg Tablet PO 25 mg BID [facility] Administration Protocol Morphine Sulfate 2 mg 09/13/20 12:52 Morphine Sulfate 2 Mg/Ml Cartridge IVPUSH Q2H PRN severe pain or discomfort Nystatin 1 appl 08/27/20 11:00 09/14/20 10:08 Nystatin Powder 15 Gm Bottle TOPICAL 1 appl BID [facility] Administration Protocol Ondansetron HCl 4 mg 08/20/20 16:18 Ondansetron Hcl 4 Mg/2 Ml Vial IVPUSH Q8H PRN Nausea and Vomiting Sodium Chloride 3 ml 08/20/20 16:18 09/14/20 09:26 0.9 % Sodium Chloride Flush 3 Ml Syringe IVFLUSH 3 ml QSHIFT [facility] Administration Vitamin D 50 mcg 08/28/20 09:00 09/14/20 09:28 Cholecalciferol (Vitamin D3) 25 Mcg Tablet PO 50 mcg DAILY [facility] Administration Zinc Oxide 1 appl 09/07/20 10:47 09/07/20 14:41 Zinc Oxide (Triple Paste) 56.7 Gm Oint TOPICAL 1 appl QID PRN Administration SKIN BREAKDOWN/BUTTOCKS/PERINE Labs CBC & Chem 7: 09/13/20 05:28 09/13/20 05:28 Microbiology Microbiology Results: Microbiology 08/30/20 16:44 Blood - Venous Blood Culture - Final No growth after 5 days. 08/30/20 16:44 Blood - Venous Blood Culture - Final No growth after 5 days. 08/27/20 13:24 Blood - Venous Blood Culture - Final No growth after 5 days. 08/27/20 13:24 Blood - Venous Blood Culture - Final No growth after 5 days. 08/30/20 16:35 Sputum - Suctioned Gram Stain - Final 08/30/20 16:35 Sputum - Suctioned Sputum Culture - Final 08/20/20 10:59 Blood - Venous Blood Culture - Final No growth after 5 days. 08/20/20 10:55 Blood - Venous Blood Culture - Final No growth after 5 days. Assessment and Plan (1) Acute respiratory failure due to COVID-19: Status: Acute (2) T2DM (type 2 diabetes mellitus): Status: Acute Assessment and Plan: 79yo F with HTN, DM2, COPD admitted to [facility] [place] for hypoxia due to COVID-19 pneumonia symptom onset 08/11, test positive 08/14, admit 08/20, ICU 08/22 for ARDS BLE DVTs diagnosed 08/28 DNR/DNI 09/02 [facility] status 09/03 persistent severe hypoxia acute hypoxic resp failure due to covid pneumonia continue to tapered down methylprednisolone, 20 mg q24h. she presented out of window for remdesivir and is now in a prolonged postviral inflammatory phase. continues to require high o2, family to monitor comfort level and determine if/when transition to comfort measures will be appropriate, currently still appears comfortable, with moments of fatigue and distress wean o2 as tolerated bilateral DVTs - therapeutic LMWH 1 mg/kg bid hyperNa - resolved DM2 - Lantus + Humalog CAD - clopidogrel HLD - statin HTN - lisinopril, metoprolol fungal sacral/perineal dermatitis - nystatin + Zn oxide, appreciate Wound Care consult FEN - NDD2 regular diet, Glucerna tid.
--- NOTE | 2020-09-14 11:20 | MHC.CM.PN ---
Patient is needing CPAP to keep O2 sats >90%. Also continues on IV Solu-medrol and IV MS for +COVID. Discharge disposition will be pending PT eval once patient is medically stable. CM will continue to follow patient for discharge needs.
[2020-09-14 11:25] LABS: Glucose, Whole Blood 124 mg/dL (60-115)
[2020-09-14 16:18] LABS: Glucose, Whole Blood 178 mg/dL (60-115)
[2020-09-14] MEDS: Insulin Lispro 100 UNIT/ML 3 ML VIAL SUBCUT ×2 (16:52→21:02)
[2020-09-14 20:08] LABS: Glucose, Whole Blood 218 mg/dL (60-115)
[2020-09-15] VITALS (15 sets, daily range): BP systolic 100–116; BP diastolic 50–70; PULSE 87–124; RESP 18–26; TEMP 36.2–37.1; O2SAT 88–98
--- NOTE | 2020-09-15 03:22 | PC.NURSE ---
Bilateral stage 2's noted to buttocks. Pictures updated in patients chart. Triad applied to open areas, with foams. Nystatin and zinc oxide applied to surrounding area and groin. Patient continues to desat to 60s when coughing and suctioning. Patient wore CPAP until 0300. Now back on high flow 100% and non-rebreather. Repo Q2H, airloss bed in place.
[2020-09-15] MEDS: Enoxaparin Sodium 80 MG/0.8 ML SYRINGE 65 MG SUBCUT ×2 (05:24→17:09)
[2020-09-15 07:55] LABS: Glucose, Whole Blood 84 mg/dL (60-115)
[2020-09-15] MEDS: Famotidine/PF 20 MG/2 ML VIAL IVPUSH ×2 (10:34→21:30)
[2020-09-15] MEDS: Clopidogrel Bisulfate 75 MG TABLET PO (10:35)
[2020-09-15] MEDS: Metoprolol Tartrate 25 MG TABLET PO ×2 (10:35→21:31)
[2020-09-15] MEDS: Cholecalciferol (Vitamin D3) 25 MCG TABLET 50 MCG PO (10:35)
[2020-09-15] MEDS: Insulin Glargine,Hum.rec.anlog 100 UNIT/ML 10 ML VIAL 12 UNIT SUBCUT (10:35)
[2020-09-15] MEDS: 0.9 % Sodium Chloride Flush 3 ML SYRINGE IVFLUSH ×3 (10:35→21:30)
[2020-09-15] MEDS: Nystatin Powder 15 GM BOTTLE 1 APPL TOPICAL ×2 (10:36→22:43)
[2020-09-15 11:20] LABS: Glucose, Whole Blood 122 mg/dL (60-115)
--- NOTE | 2020-09-15 12:21 | P.PNIM_ITS ---
Subjective Subjective Date of Service: 09/15/20 Interval History: tired Cardiovascular Cardiovascular: Reports no additional cardiovascular complaints Gastrointestinal Gastrointestinal: Reports no additional gastrointestinal complaints Physical Exam Vital Signs: Vital Signs: Last Vital Signs Temp 97.6 F 09/15/20 11:24 Pulse 111 H 09/15/20 11:24 Resp 22 H 09/15/20 11:33 BP 115/59 L 09/15/20 11:24 Pulse Ox 96 09/15/20 11:24 Body Mass Index 27.3 General: ill appearing Resp: rhonchi CVS: S1,S2,RRR GI: soft, non tender, non distended Neuro: motor grossly intact Psych: appropriate affect Objective Data Current Medications Generic Name Dose Route Start Last Admin Trade Name Freq PRN Reason Stop Dose Admin Acetaminophen 650 mg 08/20/20 16:18 08/26/20 22:26 Acetaminophen 325 Mg Tablet PO 650 mg Q6H PRN Administration Pain, Mild (Pain Scale 1-3) Clopidogrel Bisulfate 75 mg 08/21/20 09:00 09/15/20 10:35 Clopidogrel Bisulfate 75 Mg Tablet PO 75 mg DAILY [facility]CIE Administration Docusate Sodium 100 mg 08/20/20 16:18 Docusate Sodium 100 Mg Capsule PO DAILY PRN Constipation Enoxaparin Sodium 65 mg 08/29/20 06:00 09/15/20 05:24 Enoxaparin Sodium 80 Mg/0.8 Ml Syringe 1 mg/kg (65 mg) 65 mg SUBCUT Administration Q12H [facility] Famotidine 20 mg 08/27/20 21:00 09/15/20 10:34 Famotidine/Pf 20 Mg/2 Ml Vial IVPUSH 20 mg BID [facility] Administration Insulin Glargine 12 unit 09/08/20 09:00 09/15/20 10:35 Insulin Glargine,Hum.Rec.Anlog 100 Unit/Ml 10 Ml Vial SUBCUT 12 unit DAILY [facility] Administration Insulin Human Lispro 0 unit 08/20/20 16:30 09/15/20 12:16 Insulin Lispro 100 Unit/Ml 3 Ml Vial SUBCUT Not Given QIDACHS [facility] Protocol Lidocaine HCl 15 ml 09/08/20 14:05 09/09/20 10:05 Lidocaine Hcl Viscous 2 % 15 Ml Solution MUCOUS MEM 15 ml Q3H PRN Administration oral pain Lisinopril 40 mg 08/21/20 09:00 09/13/20 09:57 Lisinopril 40 Mg Tablet PO 40 mg DAILY [facility] Administration Methylprednisolone Sodium Succinate 20 mg 09/13/20 10:00 09/15/20 10:35 Methylprednisolone Sod Succ/Pf 40 Mg/Ml Vial IVPUSH 20 mg Q24H [facility] Administration Metoprolol Tartrate 25 mg 08/29/20 12:55 09/15/20 10:35 Metoprolol Tartrate 25 Mg Tablet PO 25 mg BID [facility] Administration Protocol Morphine Sulfate 2 mg 09/13/20 12:52 Morphine Sulfate 2 Mg/Ml Cartridge IVPUSH Q2H PRN severe pain or discomfort Nystatin 1 appl 08/27/20 11:00 09/15/20 10:36 Nystatin Powder 15 Gm Bottle TOPICAL 1 appl BID [facility] Administration Protocol Ondansetron HCl 4 mg 08/20/20 16:18 Ondansetron Hcl 4 Mg/2 Ml Vial IVPUSH Q8H PRN Nausea and Vomiting Sodium Chloride 3 ml 08/20/20 16:18 09/15/20 10:35 0.9 % Sodium Chloride Flush 3 Ml Syringe IVFLUSH 3 ml QSHIFT [facility] Administration Vitamin D 50 mcg 08/28/20 09:00 09/15/20 10:35 Cholecalciferol (Vitamin D3) 25 Mcg Tablet PO 50 mcg DAILY [facility] Administration Zinc Oxide 1 appl 09/07/20 10:47 09/07/20 14:41 Zinc Oxide (Triple Paste) 56.7 Gm Oint TOPICAL 1 appl QID PRN Administration SKIN BREAKDOWN/BUTTOCKS/PERINE Labs CBC & Chem 7: 09/13/20 05:28 09/13/20 05:28 Microbiology Microbiology Results: Microbiology 08/30/20 16:44 Blood - Venous Blood Culture - Final No growth after 5 days. 08/30/20 16:44 Blood - Venous Blood Culture - Final No growth after 5 days. 08/27/20 13:24 Blood - Venous Blood Culture - Final No growth after 5 days. 08/27/20 13:24 Blood - Venous Blood Culture - Final No growth after 5 days. 08/30/20 16:35 Sputum - Suctioned Gram Stain - Final 08/30/20 16:35 Sputum - Suctioned Sputum Culture - Final 08/20/20 10:59 Blood - Venous Blood Culture - Final No growth after 5 days. 08/20/20 10:55 Blood - Venous Blood Culture - Final No growth after 5 days. Assessment and Plan (1) Acute respiratory failure due to COVID-19: Status: Acute (2) T2DM (type 2 diabetes mellitus): Status: Acute Assessment and Plan: 79yo F with HTN, DM2, COPD admitted to [facility] [place] for hypoxia due to COVID-19 pneumonia symptom onset 08/11, test positive 08/14, admit 08/20, ICU 08/22 for ARDS BLE DVTs diagnosed 08/28 DNR/DNI 09/02 [facility] status 09/03 persistent severe hypoxia no significant changes today acute hypoxic resp failure due to covid pneumonia continue to tapere down methylprednisolone, 20 mg q24h. she presented out of window for remdesivir and is now in a prolonged postviral inflammatory phase. continues to require high o2, family to monitor comfort level and determine if/when transition to comfort measures will be appropriate, currently still appears comfortable, with moments of fatigue and distress wean o2 as tolerated bilateral DVTs - therapeutic LMWH 1 mg/kg bid hyperNa - resolved DM2 - Lantus + Humalog CAD - clopidogrel HLD - statin HTN - lisinopril, metoprolol fungal sacral/perineal dermatitis - nystatin + Zn oxide, appreciate Wound Care consult FEN - NDD2 regular diet, Glucerna tid.
[2020-09-15 16:28] LABS: Glucose, Whole Blood 155 mg/dL (60-115)
[2020-09-15] MEDS: Insulin Lispro 100 UNIT/ML 3 ML VIAL SUBCUT (17:09)
--- NOTE | 2020-09-15 17:58 | PC.NURSE ---
Pt fatigued throughout day but able to make needs known. Pt tolerated titration to high flow 60L/85%, Pt resting comfortabley throughout shift, repo q2hr.
[2020-09-15 21:10] LABS: Glucose, Whole Blood 150 mg/dL (60-115)
[2020-09-16] VITALS (13 sets, daily range): BP systolic 96–142; BP diastolic 40–77; PULSE 79–109; RESP 16–24; TEMP 36.1–36.8; O2SAT 89–99
[2020-09-16] MEDS: Enoxaparin Sodium 80 MG/0.8 ML SYRINGE 65 MG SUBCUT ×2 (05:16→16:56)
[2020-09-16 07:40] LABS: Glucose, Whole Blood 80 mg/dL (60-115)
[2020-09-16] MEDS: Cholecalciferol (Vitamin D3) 25 MCG TABLET 50 MCG PO (09:10)
[2020-09-16] MEDS: Clopidogrel Bisulfate 75 MG TABLET PO (09:10)
[2020-09-16] MEDS: Metoprolol Tartrate 25 MG TABLET PO ×2 (09:10→21:07)
[2020-09-16] MEDS: 0.9 % Sodium Chloride Flush 3 ML SYRINGE IVFLUSH ×3 (09:10→21:08)
[2020-09-16] MEDS: Insulin Glargine,Hum.rec.anlog 100 UNIT/ML 10 ML VIAL 12 UNIT SUBCUT (09:11)
[2020-09-16] MEDS: Famotidine/PF 20 MG/2 ML VIAL IVPUSH ×2 (09:11→21:08)
--- NOTE | 2020-09-16 11:31 | HO.PM.IMPN ---
Subjective Subjective Date of Service: 09/16/20 Interval History: feels ok Cardiovascular Cardiovascular: Reports no additional cardiovascular complaints Gastrointestinal Gastrointestinal: Reports no additional gastrointestinal complaints Physical Exam Vital Signs: Vital Signs: Last Vital Signs Temp 97.0 F 09/16/20 10:59 Pulse 101 H 09/16/20 10:59 Resp 18 09/16/20 10:59 BP 115/56 L 09/16/20 10:59 Pulse Ox 96 09/16/20 10:59 Body Mass Index 27.3 General: AO X 3, ill appearing Resp: CTA bilateral CVS: S1,S2,RRR GI: soft, non tender, non distended Neuro: motor grossly intact Psych: appropriate affect Objective Data Current Medications Generic Name Dose Route Start Last Admin Trade Name Freq PRN Reason Stop Dose Admin Acetaminophen 650 mg 08/20/20 16:18 08/26/20 22:26 Acetaminophen 325 Mg Tablet PO 650 mg Q6H PRN Administration Pain, Mild (Pain Scale 1-3) Clopidogrel Bisulfate 75 mg 08/21/20 09:00 09/16/20 09:10 Clopidogrel Bisulfate 75 Mg Tablet PO 75 mg DAILY [facility] Administration Docusate Sodium 100 mg 08/20/20 16:18 Docusate Sodium 100 Mg Capsule PO DAILY PRN Constipation Enoxaparin Sodium 65 mg 08/29/20 06:00 09/16/20 05:16 Enoxaparin Sodium 80 Mg/0.8 Ml Syringe 1 mg/kg (65 mg) 65 mg SUBCUT Administration Q12H [facility] Famotidine 20 mg 08/27/20 21:00 09/16/20 09:11 Famotidine/Pf 20 Mg/2 Ml Vial IVPUSH 20 mg BID [facility] Administration Insulin Glargine 12 unit 09/08/20 09:00 09/16/20 09:11 Insulin Glargine,Hum.Rec.Anlog 100 Unit/Ml 10 Ml Vial SUBCUT 12 unit DAILY [facility] Administration Insulin Human Lispro 0 unit 08/20/20 16:30 09/16/20 09:11 Insulin Lispro 100 Unit/Ml 3 Ml Vial SUBCUT Not Given QIDACHS [facility] Protocol Lidocaine HCl 15 ml 09/08/20 14:05 09/09/20 10:05 Lidocaine Hcl Viscous 2 % 15 Ml Solution MUCOUS MEM 15 ml Q3H PRN Administration oral pain Lisinopril 40 mg 08/21/20 09:00 09/13/20 09:57 Lisinopril 40 Mg Tablet PO 40 mg DAILY [facility] Administration Methylprednisolone Sodium Succinate 20 mg 09/13/20 10:00 09/16/20 09:10 Methylprednisolone Sod Succ/Pf 40 Mg/Ml Vial IVPUSH 20 mg Q24H [facility] Administration Metoprolol Tartrate 25 mg 08/29/20 12:55 09/16/20 09:10 Metoprolol Tartrate 25 Mg Tablet PO 25 mg BID [facility] Administration Protocol Morphine Sulfate 2 mg 09/13/20 12:52 Morphine Sulfate 2 Mg/Ml Cartridge IVPUSH Q2H PRN severe pain or discomfort Nystatin 1 appl 08/27/20 11:00 09/15/20 22:43 Nystatin Powder 15 Gm Bottle TOPICAL 1 appl BID [facility] Administration Protocol Ondansetron HCl 4 mg 08/20/20 16:18 Ondansetron Hcl 4 Mg/2 Ml Vial IVPUSH Q8H PRN Nausea and Vomiting Sodium Chloride 3 ml 08/20/20 16:18 09/16/20 09:10 0.9 % Sodium Chloride Flush 3 Ml Syringe IVFLUSH 3 ml QSHIFT [facility] Administration Vitamin D 50 mcg 08/28/20 09:00 09/16/20 09:10 Cholecalciferol (Vitamin D3) 25 Mcg Tablet PO 50 mcg DAILY [facility] Administration Zinc Oxide 1 appl 09/07/20 10:47 09/07/20 14:41 Zinc Oxide (Triple Paste) 56.7 Gm Oint TOPICAL 1 appl QID PRN Administration SKIN BREAKDOWN/BUTTOCKS/PERINE Labs CBC & Chem 7: 09/13/20 05:28 09/13/20 05:28 Microbiology Microbiology Results: Microbiology 08/30/20 16:44 Blood - Venous Blood Culture - Final No growth after 5 days. 08/30/20 16:44 Blood - Venous Blood Culture - Final No growth after 5 days. 08/27/20 13:24 Blood - Venous Blood Culture - Final No growth after 5 days. 08/27/20 13:24 Blood - Venous Blood Culture - Final No growth after 5 days. 08/30/20 16:35 Sputum - Suctioned Gram Stain - Final 08/30/20 16:35 Sputum - Suctioned Sputum Culture - Final 08/20/20 10:59 Blood - Venous Blood Culture - Final No growth after 5 days. 01/25/21 10:55 Blood - Venous Blood Culture - Final No growth after 5 days. Assessment and Plan (1) Acute respiratory failure due to COVID-19: Status: Acute (2) T2DM (type 2 diabetes mellitus): Status: Acute Assessment and Plan: 79yo F with HTN, DM2, COPD admitted to [facility] [place] for hypoxia due to COVID-19 pneumonia symptom onset 08/11, test positive 08/14, admit 08/20, ICU 08/22 for ARDS BLE DVTs diagnosed 08/28 DNR/DNI 09/02 [facility] status 09/03 persistent severe hypoxia no significant changes today acute hypoxic resp failure due to covid pneumonia continue to tapere down methylprednisolone, 20 mg q24h. she presented out of window for remdesivir and is now in a prolonged postviral inflammatory phase. continues to require high o2, family to monitor comfort level and determine if/when transition to comfort measures will be appropriate, currently still appears comfortable, with moments of fatigue and distress wean o2 as tolerated, expect to take a long time, but wishes to continue with high level o2 support bilateral DVTs - therapeutic LMWH 1 mg/kg bid hyperNa - resolved DM2 - Lantus + Humalog CAD - clopidogrel HLD - statin HTN - lisinopril, metoprolol fungal sacral/perineal dermatitis - nystatin + Zn oxide, appreciate Wound Care consult FEN - NDD2 regular diet, Glucerna tid.
[2020-09-16 11:32] LABS: Glucose, Whole Blood 239 mg/dL (60-115)
[2020-09-16] MEDS: Insulin Lispro 100 UNIT/ML 3 ML VIAL SUBCUT ×2 (12:07→21:08)
[2020-09-16 16:37] LABS: Glucose, Whole Blood 107 mg/dL (60-115)
[2020-09-16 20:20] LABS: Glucose, Whole Blood 167 mg/dL (60-115)
[2020-09-16] MEDS: Nystatin Powder 15 GM BOTTLE 1 APPL TOPICAL (22:57)
[2020-09-17] VITALS (14 sets, daily range): BP systolic 94–118; BP diastolic 54–64; PULSE 89–114; RESP 0–26; TEMP 35.8–36.3; O2SAT 90–99
[2020-09-17] MEDS: Enoxaparin Sodium 80 MG/0.8 ML SYRINGE 65 MG SUBCUT ×2 (05:15→17:27)
[2020-09-17 07:33] LABS: Glucose, Whole Blood 62 mg/dL (60-115)
[2020-09-17] MEDS: Cholecalciferol (Vitamin D3) 25 MCG TABLET 50 MCG PO (09:35)
[2020-09-17] MEDS: Metoprolol Tartrate 25 MG TABLET PO ×2 (09:38→21:20)
[2020-09-17] MEDS: 0.9 % Sodium Chloride Flush 3 ML SYRINGE IVFLUSH ×3 (09:45→21:21)
[2020-09-17] MEDS: Famotidine/PF 20 MG/2 ML VIAL IVPUSH ×2 (09:45→21:20)
[2020-09-17] MEDS: Insulin Glargine,Hum.rec.anlog 100 UNIT/ML 10 ML VIAL 12 UNIT SUBCUT (09:53)
[2020-09-17 09:54] LABS: Glucose, Whole Blood 249 mg/dL (60-115)
[2020-09-17] MEDS: Clopidogrel Bisulfate 75 MG TABLET PO (09:55)
[2020-09-17] MEDS: Nystatin Powder 15 GM BOTTLE 1 APPL TOPICAL ×2 (09:59→21:26)
--- NOTE | 2020-09-17 11:31 | MHC.CM.PN ---
Patient is requiring 10 liters via CPAP to keep o2 sats >90% r/t +COVID. Also on IV Solu-Medrol. Discharge plan is home with new referral to [facility] and 16/02 family support. CM will continue to follow patient for discharge needs.
[2020-09-17 12:10] LABS: Glucose, Whole Blood 302 mg/dL (60-115)
--- NOTE | 2020-09-17 12:29 | HO.PM.IMPN ---
Subjective Subjective Date of Service: 09/17/20 Interval History: feeling ok, occasionally sob Cardiovascular Cardiovascular: Reports no additional cardiovascular complaints Respiratory Respiratory: Reports no additional respiratory complaints Physical Exam Vital Signs: Vital Signs: Last Vital Signs Temp 97.2 F 09/17/20 12:00 Pulse 101 H 09/17/20 12:00 Resp 20 09/17/20 12:00 BP 99/59 L 09/17/20 12:00 Pulse Ox 94 09/17/20 12:00 Body Mass Index 27.3 General: Alert, ill appearing, no acute distress Resp: rhonchi CVS: S1,S2,RRR GI: soft, non tender, non distended Neuro: motor grossly intact Psych: appropriate affect Objective Data Current Medications Generic Name Dose Route Start Last Admin Trade Name Freq PRN Reason Stop Dose Admin Acetaminophen 650 mg 08/20/20 16:18 08/26/20 22:26 Acetaminophen 325 Mg Tablet PO 650 mg Q6H PRN Administration Pain, Mild (Pain Scale 1-3) Clopidogrel Bisulfate 75 mg 08/21/20 09:00 09/17/20 09:55 Clopidogrel Bisulfate 75 Mg Tablet PO 75 mg DAILY [facility] Administration Docusate Sodium 100 mg 08/20/20 16:18 Docusate Sodium 100 Mg Capsule PO DAILY PRN Constipation Enoxaparin Sodium 65 mg 08/29/20 06:00 09/17/20 05:15 Enoxaparin Sodium 80 Mg/0.8 Ml Syringe 1 mg/kg (65 mg) 65 mg SUBCUT Administration Q12H [facility] Famotidine 20 mg 08/27/20 21:00 09/17/20 09:45 Famotidine/Pf 20 Mg/2 Ml Vial IVPUSH 20 mg BID [facility] Administration Insulin Glargine 12 unit 09/08/20 09:00 09/17/20 09:53 Insulin Glargine,Hum.Rec.Anlog 100 Unit/Ml 10 Ml Vial SUBCUT 12 unit DAILY [facility] Administration Insulin Human Lispro 0 unit 08/20/20 16:30 09/17/20 09:44 Insulin Lispro 100 Unit/Ml 3 Ml Vial SUBCUT Not Given QIDACHS [facility] Protocol Lidocaine HCl 15 ml 09/08/20 14:05 09/09/20 10:05 Lidocaine Hcl Viscous 2 % 15 Ml Solution MUCOUS MEM 15 ml Q3H PRN Administration oral pain Lisinopril 40 mg 08/21/20 09:00 09/13/20 09:57 Lisinopril 40 Mg Tablet PO 40 mg DAILY [facility] Administration Methylprednisolone Sodium Succinate 20 mg 09/13/20 10:00 09/17/20 09:45 Methylprednisolone Sod Succ/Pf 40 Mg/Ml Vial IVPUSH 20 mg Q24H [facility] Administration Metoprolol Tartrate 25 mg 08/29/20 12:55 09/17/20 09:38 Metoprolol Tartrate 25 Mg Tablet PO 25 mg BID [facility] Administration Protocol Morphine Sulfate 2 mg 09/13/20 12:52 Morphine Sulfate 2 Mg/Ml Cartridge IVPUSH Q2H PRN severe pain or discomfort Nystatin 1 appl 08/27/20 11:00 09/17/20 09:59 Nystatin Powder 15 Gm Bottle TOPICAL 1 appl BID [facility] Administration Protocol Ondansetron HCl 4 mg 08/20/20 16:18 Ondansetron Hcl 4 Mg/2 Ml Vial IVPUSH Q8H PRN Nausea and Vomiting Sodium Chloride 3 ml 08/20/20 16:18 09/17/20 09:45 0.9 % Sodium Chloride Flush 3 Ml Syringe IVFLUSH 3 ml QSHIFT [facility] Administration Vitamin D 50 mcg 08/28/20 09:00 09/17/20 09:35 Cholecalciferol (Vitamin D3) 25 Mcg Tablet PO 50 mcg DAILY [facility] Administration Zinc Oxide 1 appl 09/07/20 10:47 09/07/20 14:41 Zinc Oxide (Triple Paste) 56.7 Gm Oint TOPICAL 1 appl QID PRN Administration SKIN BREAKDOWN/BUTTOCKS/PERINE Labs CBC & Chem 7: 09/13/20 05:28 09/13/20 05:28 Microbiology Microbiology Results: Microbiology 08/30/20 16:44 Blood - Venous Blood Culture - Final No growth after 5 days. 08/30/20 16:44 Blood - Venous Blood Culture - Final No growth after 5 days. 08/27/20 13:24 Blood - Venous Blood Culture - Final No growth after 5 days. 08/27/20 13:24 Blood - Venous Blood Culture - Final No growth after 5 days. 08/30/20 16:35 Sputum - Suctioned Gram Stain - Final 08/30/20 16:35 Sputum - Suctioned Sputum Culture - Final 08/20/20 10:59 Blood - Venous Blood Culture - Final No growth after 5 days. 08/20/20 10:55 Blood - Venous Blood Culture - Final No growth after 5 days. Assessment and Plan (1) Acute respiratory failure due to COVID-19: Status: Acute (2) T2DM (type 2 diabetes mellitus): Status: Acute Assessment and Plan: 79yo F with HTN, DM2, COPD admitted to [facility] [place] [place] for hypoxia due to COVID-19 pneumonia symptom onset 08/11, test positive 08/14, admit 08/20, ICU 08/22 for ARDS BLE DVTs diagnosed 08/28 DNR/DNI 09/02 [facility] [place] [place] status 09/03 persistent severe hypoxia acute hypoxic resp failure due to covid pneumonia continue to taper down to prednisone 10mg daily. she presented out of window for remdesivir and is now in a prolonged postviral inflammatory phase. continues to require high o2, family to monitor comfort level and determine if/when transition to comfort measures will be appropriate, currently still appears comfortable, with moments of fatigue and distress wean o2 as tolerated, expect to take a long time, but wishes to continue with high level o2 support bilateral DVTs - therapeutic LMWH 1 mg/kg bid hyperNa - resolved DM2 - Lantus + Humalog CAD - clopidogrel HLD - statin HTN - lisinopril, metoprolol fungal sacral/perineal dermatitis - nystatin + Zn oxide, appreciate Wound Care consult FEN - NDD2 regular diet, Glucerna tid.
[2020-09-17] MEDS: Insulin Lispro 100 UNIT/ML 3 ML VIAL SUBCUT (13:12)
[2020-09-17 16:54] LABS: Glucose, Whole Blood 135 mg/dL (60-115)
[2020-09-17 20:47] LABS: Glucose, Whole Blood 85 mg/dL (60-115)
[2020-09-18] VITALS (13 sets, daily range): BP systolic 91–128; BP diastolic 47–56; PULSE 88–130; RESP 14–23; TEMP 36.1–37.2; O2SAT 81–95
[2020-09-18] MEDS: Enoxaparin Sodium 80 MG/0.8 ML SYRINGE 65 MG SUBCUT ×2 (05:49→05:54)
[2020-09-18 06:52] LABS: Eosinophils Percent Auto 2.1 % (0-4); Hematocrit 34.9 % (37-47); MANUAL DIFF FLAG SCAN; PLT CLUMP 1; SCAN SMEAR FLAG 1
[2020-09-18 06:54] LABS: Basophils Percent Auto 0.4 % (0-2); Eosinophils Absolute Auto 0.2 X10*3/uL (0.0-0.4); Hemoglobin 11.2 g/dl (12.0-16.0); Imm Gran Abs Auto 0.15 X10*3/uL (0.00-0.03); Imm Gran Pct Auto 1.8 % (0.0-0.4); Lymphocytes Absolute Auto 1.8 X10*3/uL (1.2-4.9); Lymphocytes Percent Auto 21.5 % (20-40); Mean Corpuscular HGB Conc 32.1 g/dl (31.0-35.0); Mean Corpuscular Hemoglobin 26.5 pg (27.0-33.0); Mean Corpuscular Volume 82.7 fL (80-98); Mean Platelet Volume 10.3 fL (9.4-12.3); Monocytes Absolute Auto 0.2 X10*3/uL (0.1-1.2); Monocytes Percent Auto 2.5 % (2-11); NRBC Pct Auto 0.2 /100WBC (0.0-0.2); Neutrophils Percent Auto 71.7 % (45-73); Red Blood Count 4.22 X10*6/uL (4.20-5.50); Red Cell Distribution Width 13.8 % (11.0-16.0); White Blood Count 8.4 X10*3/uL (4.8-10.8)
[2020-09-18 07:28] LABS: Anion Gap 14 (12-20); Blood Urea Nitrogen 10 mg/dL (9-16); Calcium 7.9 mg/dL (8.4-10.2); Carbon Dioxide 28 mmol/L (22-29); Chloride 103 mmol/L (96-108); Creatinine Clr Calc Pharmacy 88.5; Estimated Glomerular Filt Rate > 60; Potassium 4.6 mmol/L (3.3-5.1); Sodium 140 mmol/L (135-145)
[2020-09-18 07:34] LABS: Glucose Fasting 52 mg/dL (60-99)
[2020-09-18 07:39] LABS: Glucose, Whole Blood 59 mg/dL (60-115)
[2020-09-18] MEDS: 0.9 % Sodium Chloride Flush 3 ML SYRINGE IVFLUSH ×3 (07:40→21:40)
[2020-09-18] MEDS: Cholecalciferol (Vitamin D3) 25 MCG TABLET 50 MCG PO (07:41)
[2020-09-18] MEDS: predniSONE 10 MG TABLET PO (07:41)
[2020-09-18] MEDS: Nystatin Powder 15 GM BOTTLE 1 APPL TOPICAL ×2 (07:41→21:45)
[2020-09-18] MEDS: Clopidogrel Bisulfate 75 MG TABLET PO (07:41)
[2020-09-18] MEDS: Famotidine/PF 20 MG/2 ML VIAL IVPUSH (07:41)
[2020-09-18 07:49] LABS: Platelet Count 225 X10*3/uL (160-400); SLIDE REVIEW VERIFIED
[2020-09-18] MEDS: Metoprolol Tartrate 25 MG TABLET PO ×2 (07:59→21:44)
[2020-09-18 08:13] LABS: Glucose, Whole Blood 105 mg/dL (60-115)
[2020-09-18 11:21] LABS: Glucose, Whole Blood 233 mg/dL (60-115)
[2020-09-18] MEDS: Insulin Lispro 100 UNIT/ML 3 ML VIAL SUBCUT ×2 (12:03→16:53)
--- NOTE | 2020-09-18 15:43 | P.PNIM_ITS ---
Subjective Subjective Date of Service: 09/19/20 Interval History: No acute issues overnight complaining of shortness of breath requiring high-flow oxygen, noted to have low blood sugars this morning but improved with orange juice. General no headache, no dizziness no fever chills. CVS no chest pain, no palpitation. Respiratory no cough, persistent shortness of breath Gastrointestinal no nausea, no vomiting, no abdominal pain Physical Exam Vital Signs: Vital Signs: Last Vital Signs Temp 98.4 F 09/18/20 11:59 Pulse 109 H 09/18/20 11:59 Resp 18 09/18/20 15:20 BP 91/56 L 09/18/20 11:59 Pulse Ox 95 09/18/20 11:59 Body Mass Index 27.3 General no acute distress, appears tired and weak. Neck is supple no JVD. CVS regular rate rhythm, Respiratory lungs clear to auscultation, no respiratory distress, no wheeze, no rhonchi. Gastrointestinal abdomen soft, nontender, bowel sounds audible, no guarding , no rigidity. Extremities no clubbing cyanosis or edema. Neuro nonfocal ,speech clear. Skin no rash Objective Data Current Medications Generic Name Dose Route Start Last Admin Trade Name Freq PRN Reason Stop Dose Admin Acetaminophen 650 mg 08/20/20 16:18 08/26/20 22:26 Acetaminophen 325 Mg Tablet PO 650 mg Q6H PRN Administration Pain, Mild (Pain Scale 1-3) Clopidogrel Bisulfate 75 mg 08/21/20 09:00 09/18/20 07:41 Clopidogrel Bisulfate 75 Mg Tablet PO 75 mg DAILY [facility] Administration Docusate Sodium 100 mg 08/20/20 16:18 Docusate Sodium 100 Mg Capsule PO DAILY PRN Constipation Enoxaparin Sodium 65 mg 08/29/20 06:00 09/18/20 05:54 Enoxaparin Sodium 80 Mg/0.8 Ml Syringe 1 mg/kg (65 mg) 65 mg SUBCUT Administration Q12H [facility] Famotidine 20 mg 08/27/20 21:00 09/18/20 07:41 Famotidine/Pf 20 Mg/2 Ml Vial IVPUSH 20 mg BID [facility] Administration Insulin Glargine 12 unit 09/08/20 09:00 09/18/20 09:22 Insulin Glargine,Hum.Rec.Anlog 100 Unit/Ml 10 Ml Vial SUBCUT Not Given DAILY [facility] Insulin Human Lispro 0 unit 08/20/20 16:30 09/18/20 12:03 Insulin Lispro 100 Unit/Ml 3 Ml Vial SUBCUT 4 unit QIDACHS [facility] Administration Protocol Lidocaine HCl 15 ml 09/08/20 14:05 09/09/20 10:05 Lidocaine Hcl Viscous 2 % 15 Ml Solution MUCOUS MEM 15 ml Q3H PRN Administration oral pain Lisinopril 40 mg 08/21/20 09:00 09/13/20 09:57 Lisinopril 40 Mg Tablet PO 40 mg DAILY [facility] Administration Metoprolol Tartrate 25 mg 08/29/20 12:55 09/18/20 07:59 Metoprolol Tartrate 25 Mg Tablet PO 25 mg BID [facility] Administration Protocol Nystatin 1 appl 08/27/20 11:00 09/18/20 07:41 Nystatin Powder 15 Gm Bottle TOPICAL 1 appl BID [facility] Administration Protocol Ondansetron HCl 4 mg 08/20/20 16:18 Ondansetron Hcl 4 Mg/2 Ml Vial IVPUSH Q8H PRN Nausea and Vomiting Prednisone 10 mg 09/18/20 09:00 09/18/20 07:41 Prednisone 10 Mg Tablet PO 10 mg DAILY [facility] Administration Sodium Chloride 3 ml 08/20/20 16:18 09/18/20 07:40 0.9 % Sodium Chloride Flush 3 Ml Syringe IVFLUSH 3 ml QSHIFT [facility] Administration Vitamin D 50 mcg 08/28/20 09:00 09/18/20 07:41 Cholecalciferol (Vitamin D3) 25 Mcg Tablet PO 50 mcg DAILY [facility] Administration Zinc Oxide 1 appl 09/07/20 10:47 09/07/20 14:41 Zinc Oxide (Triple Paste) 56.7 Gm Oint TOPICAL 1 appl QID PRN Administration SKIN BREAKDOWN/BUTTOCKS/PERINE Labs CBC & Chem 7: 09/18/20 05:49 09/18/20 05:49 Microbiology Microbiology Results: Microbiology 08/30/20 16:44 Blood - Venous Blood Culture - Final No growth after 5 days. 08/30/20 16:44 Blood - Venous Blood Culture - Final No growth after 5 days. 08/27/20 13:24 Blood - Venous Blood Culture - Final No growth after 5 days. 08/27/20 13:24 Blood - Venous Blood Culture - Final No growth after 5 days. 08/30/20 16:35 Sputum - Suctioned Gram Stain - Final 08/30/20 16:35 Sputum - Suctioned Sputum Culture - Final 08/20/20 10:59 Blood - Venous Blood Culture - Final No growth after 5 days. 08/20/20 10:55 Blood - Venous Blood Culture - Final No growth after 5 days. Assessment and Plan (1) Acute respiratory failure with hypoxia: Status: Acute (2) Hypernatremia: Status: Acute (3) Acute respiratory failure due to COVID-19: Status: Acute (4) T2DM (type 2 diabetes mellitus): Status: Acute (5) HTN (hypertension): Status: Acute (6) HLD (hyperlipidemia): Status: Acute Assessment and Plan: 79yo F with HTN, DM2, COPD admitted to [facility] [place] for hypoxia due to COVID-19 pneumonia symptom onset 08/11, test positive 08/14, admit 08/20, ICU 08/22 for ARDS patient subsequently transferred to [facility] [place] BLE DVTs diagnosed 08/28 on Lovenox, persistent severe hypoxia, acute hypoxic resp failure due to covid pneumonia continue to taper down prednisone gradually currently on 10mg daily. she presented out of window for remdesivir and is now in a prolonged postviral inflammatory phase. continues to require high o2, recommend to use incentive spirometry, out of bed to chair, patient currently appears comfortable will wean oxygen as tolerated. bilateral DVTs cont. therapeutic LMWH 1 mg/kg bid will change to Eliquis hyperNa resolved DM2 Low BS therefore held Lantus , will decrease dose of Lantus and continue Humalog CAD continue clopidogrel and statins HTN low bp will decrease dose of lisinopril from 40 mg to 10 mg daily, continue metoprolol and follow blood pressure closely fungal sacral/perineal dermatitis Continue nystatin + Zn oxide, appreciate Wound Care consult FEN NDD2 regular diet, Glucerna tid.
[2020-09-18 16:36] LABS: Glucose, Whole Blood 227 mg/dL (60-115)
[2020-09-18 20:42] LABS: Glucose, Whole Blood 159 mg/dL (60-115)
[2020-09-19] VITALS (14 sets, daily range): BP systolic 82–136; BP diastolic 48–59; PULSE 95–127; RESP 18–39; TEMP 35.7–36.7; O2SAT 87–98
[2020-09-19] MEDS: Docusate Sodium 100 MG CAPSULE PO (03:54)
[2020-09-19] MEDS: Omeprazole 20 MG CAPSULE.DR PO (05:07)
[2020-09-19] MEDS: Enoxaparin Sodium 80 MG/0.8 ML SYRINGE 65 MG SUBCUT ×2 (05:12→18:27)
[2020-09-19 07:37] LABS: Glucose, Whole Blood 170 mg/dL (60-115)
[2020-09-19] MEDS: Clopidogrel Bisulfate 75 MG TABLET PO (09:01)
[2020-09-19] MEDS: predniSONE 10 MG TABLET PO (09:01)
[2020-09-19] MEDS: Metoprolol Tartrate 25 MG TABLET PO ×2 (09:01→21:24)
[2020-09-19] MEDS: Cholecalciferol (Vitamin D3) 25 MCG TABLET 50 MCG PO (09:01)
[2020-09-19] MEDS: Insulin Lispro 100 UNIT/ML 3 ML VIAL SUBCUT ×3 (09:02→21:23)
[2020-09-19] MEDS: Insulin Glargine,Hum.rec.anlog 100 UNIT/ML 10 ML VIAL 8 UNIT SUBCUT (09:02)
[2020-09-19] MEDS: 0.9 % Sodium Chloride Flush 3 ML SYRINGE IVFLUSH ×2 (09:02→21:23)
[2020-09-19] MEDS: Nystatin Powder 15 GM BOTTLE 1 APPL TOPICAL ×2 (09:03→21:31)
--- NOTE | 2020-09-19 10:57 | MHC.CM.PN ---
Patient is still requiring O2 at 50 liters high flow with FIO2 at 95% NRB mask r/t +COVID. Patient also requiring CPAP at night. Discharge plan pending PT eval when medically stable. CM will continue to follow patient for discharge needs.
[2020-09-19 11:15] LABS: Glucose, Whole Blood 196 mg/dL (60-115)
[2020-09-19] MEDS: Albumin Human 25 % 100 ML IV ×2 (12:21→15:10)
[2020-09-19 16:33] LABS: Glucose, Whole Blood 121 mg/dL (60-115)
--- NOTE | 2020-09-19 17:17 | P.PNIM_ITS ---
Subjective Subjective Date of Service: 09/20/20 Interval History: History obtained via bowling teacher, patient is not offering any acute complaints but generally not feeling well, feels weak and refusing to be out of bed to chair, appetite is poor by mouth. General no headache, no dizziness no fever chills. CVS no chest pain, no palpitation. Respiratory no cough, no shortness of breath (appears short of breath) Gastrointestinal no nausea, no vomiting, no abdominal pain Physical Exam Vital Signs: Vital Signs: Last Vital Signs Temp 97.2 F 09/19/20 15:51 Pulse 108 H 09/19/20 15:51 Resp 18 09/19/20 15:51 BP 104/52 L 09/19/20 15:51 Pulse Ox 91 L 09/19/20 15:51 Body Mass Index 27.3 General appears tired and weak. Neck is supple no JVD. CVS regular rate rhythm, Respiratory lungs clear to auscultation, mild respiratory distress, no wheeze, no rhonchi. Gastrointestinal abdomen soft, nontender, bowel sounds audible, no guarding , no rigidity. Extremities no clubbing cyanosis or edema. Neuro nonfocal ,speech clear. Skin no rash Objective Data Current Medications Generic Name Dose Route Start Last Admin Trade Name Freq PRN Reason Stop Dose Admin Acetaminophen 650 mg 08/20/20 16:18 08/26/20 22:26 Acetaminophen 325 Mg Tablet PO 650 mg Q6H PRN Administration Pain, Mild (Pain Scale 1-3) Clopidogrel Bisulfate 75 mg 08/21/20 09:00 09/19/20 09:01 Clopidogrel Bisulfate 75 Mg Tablet PO 75 mg DAILY [facility] Administration Docusate Sodium 100 mg 08/20/20 16:18 09/19/20 03:54 Docusate Sodium 100 Mg Capsule PO 100 mg DAILY PRN Administration Constipation Enoxaparin Sodium 65 mg 08/29/20 06:00 09/19/20 05:12 Enoxaparin Sodium 80 Mg/0.8 Ml Syringe 1 mg/kg (65 mg) 65 mg SUBCUT Administration Q12H [facility] Insulin Glargine 8 unit 09/19/20 09:00 09/19/20 09:02 Insulin Glargine,Hum.Rec.Anlog 100 Unit/Ml 10 Ml Vial SUBCUT 8 unit DAILY [facility] Administration Insulin Human Lispro 0 unit 08/20/20 16:30 09/19/20 16:49 Insulin Lispro 100 Unit/Ml 3 Ml Vial SUBCUT Not Given QIDACHS [facility] Protocol Lidocaine HCl 15 ml 09/08/20 14:05 09/09/20 10:05 Lidocaine Hcl Viscous 2 % 15 Ml Solution MUCOUS MEM 15 ml Q3H PRN Administration oral pain Metoprolol Tartrate 25 mg 08/29/20 12:55 09/19/20 09:01 Metoprolol Tartrate 25 Mg Tablet PO 25 mg BID [facility] Administration Protocol Nystatin 1 appl 08/27/20 11:00 09/19/20 09:03 Nystatin Powder 15 Gm Bottle TOPICAL 1 appl BID [facility] Administration Protocol Omeprazole 20 mg 09/19/20 06:30 09/19/20 05:07 Omeprazole 20 Mg Capsule. PO 20 mg DAILY@0630 [facility] Administration Ondansetron HCl 4 mg 08/20/20 16:18 Ondansetron Hcl 4 Mg/2 Ml Vial IVPUSH Q8H PRN Nausea and Vomiting Prednisone 10 mg 09/18/20 09:00 09/19/20 09:01 Prednisone 10 Mg Tablet PO 10 mg DAILY [facility] Administration Sodium Chloride 3 ml 08/20/20 16:18 09/19/20 15:10 0.9 % Sodium Chloride Flush 3 Ml Syringe IVFLUSH Not Given QSHIFT [facility] Vitamin D 50 mcg 08/28/20 09:00 09/19/20 09:01 Cholecalciferol (Vitamin D3) 25 Mcg Tablet PO 50 mcg DAILY [facility] Administration Zinc Oxide 1 appl 09/07/20 10:47 09/07/20 14:41 Zinc Oxide (Triple Paste) 56.7 Gm Oint TOPICAL 1 appl QID PRN Administration SKIN BREAKDOWN/BUTTOCKS/PERINE Labs CBC & Chem 7: 09/18/20 05:49 09/18/20 05:49 Microbiology Microbiology Results: Microbiology 08/30/20 16:44 Blood - Venous Blood Culture - Final No growth after 5 days. 08/30/20 16:44 Blood - Venous Blood Culture - Final No growth after 5 days. 08/27/20 13:24 Blood - Venous Blood Culture - Final No growth after 5 days. 08/27/20 13:24 Blood - Venous Blood Culture - Final No growth after 5 days. 08/30/20 16:35 Sputum - Suctioned Gram Stain - Final 08/30/20 16:35 Sputum - Suctioned Sputum Culture - Final 08/20/20 10:59 Blood - Venous Blood Culture - Final No growth after 5 days. 08/20/20 10:55 Blood - Venous Blood Culture - Final No growth after 5 days. Assessment and Plan (1) Acute respiratory failure with hypoxia: Status: Acute (2) ARDS (adult respiratory distress syndrome): Status: Acute (3) Hypernatremia: Status: Acute (4) Hypoglycemia: Status: Acute (5) HTN (hypertension): Status: Acute (6) T2DM (type 2 diabetes mellitus): Status: Acute Assessment and Plan: 79yo F with HTN, DM2, COPD admitted to [facility] [place] for hypoxia due to COVID-19 pneumonia symptom onset 08/11, test positive 08/14, admit 08/20, ICU 08/22 for ARDS patient subsequently transferred to [facility] [place] BLE DVTs diagnosed 08/28 on Lovenox, persistent severe hypoxia, acute hypoxic resp failure due to covid pneumonia Persistent hypoxia although patient denies shortness of breath or chest pain on po prednisone 10mg daily. she presented out of window for remdesivir and is now in a prolonged postviral inflammatory phase. continues to require high o2, recommend to use incentive spirometry, out of bed to chair, patient currently feels weak, appears comfortable will wean oxygen as tolerated. bilateral DVTs cont. therapeutic LMWH 1 mg/kg bid will transition to Eliquis hyperNa resolved DM2 Blood sugars improved continue low-dose of Lantus and continue Humalog CAD continue clopidogrel and statins question need for Plavix patient is on it for > 15 years. HTN low bp will discontinue lisinopril , continue metoprolol and follow blood pressure closely fungal sacral/perineal dermatitis Continue nystatin + Zn oxide, appreciate Wound Care consult FEN NDD2 regular diet, Glucerna tid.
[2020-09-19 21:16] LABS: Glucose, Whole Blood 204 mg/dL (60-115)
[2020-09-20] VITALS (15 sets, daily range): BP systolic 109–133; BP diastolic 47–62; PULSE 92–129; RESP 18–38; TEMP 36.4–37.3; O2SAT 87–99; BMI 27.3
[2020-09-20] MEDS: Omeprazole 20 MG CAPSULE.DR PO (05:24)
[2020-09-20] MEDS: Enoxaparin Sodium 80 MG/0.8 ML SYRINGE 65 MG SUBCUT ×2 (05:25→18:15)
[2020-09-20 07:29] LABS: Glucose, Whole Blood 126 mg/dL (60-115)
[2020-09-20] MEDS: Insulin Glargine,Hum.rec.anlog 100 UNIT/ML 10 ML VIAL 8 UNIT SUBCUT (09:05)
[2020-09-20] MEDS: 0.9 % Sodium Chloride Flush 3 ML SYRINGE IVFLUSH ×2 (09:05→16:27)
[2020-09-20] MEDS: Cholecalciferol (Vitamin D3) 25 MCG TABLET 50 MCG PO (09:05)
[2020-09-20] MEDS: predniSONE 10 MG TABLET PO (09:06)
[2020-09-20] MEDS: Nystatin Powder 15 GM BOTTLE 1 APPL TOPICAL ×2 (09:06→20:38)
[2020-09-20] MEDS: Clopidogrel Bisulfate 75 MG TABLET PO (09:06)
[2020-09-20] MEDS: Metoprolol Tartrate 25 MG TABLET PO ×2 (09:07→20:38)
[2020-09-20 11:52] LABS: Glucose, Whole Blood 253 mg/dL (60-115)
[2020-09-20] MEDS: Insulin Lispro 100 UNIT/ML 3 ML VIAL SUBCUT ×2 (12:37→16:27)
--- NOTE | 2020-09-20 13:44 | P.PNIM_ITS ---
Subjective Subjective Date of Service: 09/21/20 Interval History: History obtained via human resources operations coordinator, Appears very weak not offering any acute complaints, appears tachypneic, denies chest pain, no headache no fever no chills, used CPAP at night, Currently on high-flow oxygen, finger oximetry 95% ros General no headache, no dizziness no fever chills. CVS no chest pain, no palpitation. Respiratory no cough, no shortness of breath (appears short of breath) Gastrointestinal no nausea, no vomiting, no abdominal pain Physical Exam 2 Vital Signs: Vital Signs: Last Vital Signs Temp 98.6 F 09/20/20 12:00 Pulse 104 H 09/20/20 12:00 Resp 28 H 09/20/20 12:09 BP 110/54 L 09/20/20 12:00 Pulse Ox 95 09/20/20 12:00 Body Mass Index 27.3 General appears weak, fatigued, tachypneic Neck is supple no JVD. CVS regular rate rhythm, Respiratory lungs clear to auscultation, mild respiratory distress, no wheeze, no rhonchi. Gastrointestinal abdomen soft, nontender, bowel sounds audible, no guarding , no rigidity. Extremities no clubbing cyanosis or edema. Neuro nonfocal ,speech clear. Skin no rash Objective Data Current Medications Generic Name Dose Route Start Last Admin Trade Name Freq PRN Reason Stop Dose Admin Acetaminophen 650 mg 08/20/20 16:18 08/26/20 22:26 Acetaminophen 325 Mg Tablet PO 650 mg Q6H PRN Administration Pain, Mild (Pain Scale 1-3) Clopidogrel Bisulfate 75 mg 08/21/20 09:00 09/20/20 09:06 Clopidogrel Bisulfate 75 Mg Tablet PO 75 mg DAILY [facility] Administration Docusate Sodium 100 mg 08/20/20 16:18 09/19/20 03:54 Docusate Sodium 100 Mg Capsule PO 100 mg DAILY PRN Administration Constipation Enoxaparin Sodium 65 mg 08/29/20 06:00 09/20/20 05:25 Enoxaparin Sodium 80 Mg/0.8 Ml Syringe 1 mg/kg (65 mg) 65 mg SUBCUT Administration Q12H [facility] Insulin Glargine 8 unit 09/19/20 09:00 09/20/20 09:05 Insulin Glargine,Hum.Rec.Anlog 100 Unit/Ml 10 Ml Vial SUBCUT 8 unit DAILY [facility] Administration Insulin Human Lispro 0 unit 08/20/20 16:30 09/20/20 12:37 Insulin Lispro 100 Unit/Ml 3 Ml Vial SUBCUT 6 unit QIDACHS [facility] Administration Protocol Lidocaine HCl 15 ml 09/08/20 14:05 09/09/20 10:05 Lidocaine Hcl Viscous 2 % 15 Ml Solution MUCOUS MEM 15 ml Q3H PRN Administration oral pain Metoprolol Tartrate 25 mg 08/29/20 12:55 09/20/20 09:07 Metoprolol Tartrate 25 Mg Tablet PO 25 mg BID [facility] Administration Protocol Morphine Sulfate 1 mg 09/20/20 10:31 Morphine Sulfate 2 Mg/Ml Cartridge IVPUSH Q6H PRN sob Nystatin 1 appl 08/27/20 11:00 09/20/20 09:06 Nystatin Powder 15 Gm Bottle TOPICAL 1 appl BID [facility] Administration Protocol Omeprazole 20 mg 09/19/20 06:30 09/20/20 05:24 Omeprazole 20 Mg Capsule.Dr PO 20 mg DAILY@0630 [facility] Administration Ondansetron HCl 4 mg 08/20/20 16:18 Ondansetron Hcl 4 Mg/2 Ml Vial IVPUSH Q8H PRN Nausea and Vomiting Sodium Chloride 3 ml 08/20/20 16:18 09/20/20 09:05 0.9 % Sodium Chloride Flush 3 Ml Syringe IVFLUSH 3 ml QSHIFT [facility] Administration Vitamin D 50 mcg 08/28/20 09:00 09/20/20 09:05 Cholecalciferol (Vitamin D3) 25 Mcg Tablet PO 50 mcg DAILY [facility] Administration Zinc Oxide 1 appl 09/07/20 10:47 09/07/20 14:41 Zinc Oxide (Triple Paste) 56.7 Gm Oint TOPICAL 1 appl QID PRN Administration SKIN BREAKDOWN/BUTTOCKS/PERINE Labs CBC & Chem 7: 09/21/20 05:41 09/21/20 05:41 Microbiology Microbiology Results: Microbiology 08/30/20 16:44 Blood - Venous Blood Culture - Final No growth after 5 days. 08/30/20 16:44 Blood - Venous Blood Culture - Final No growth after 5 days. 08/27/20 13:24 Blood - Venous Blood Culture - Final No growth after 5 days. 08/27/20 13:24 Blood - Venous Blood Culture - Final No growth after 5 days. 08/30/20 16:35 Sputum - Suctioned Gram Stain - Final 08/30/20 16:35 Sputum - Suctioned Sputum Culture - Final 08/20/20 10:59 Blood - Venous Blood Culture - Final No growth after 5 days. 08/20/20 10:55 Blood - Venous Blood Culture - Final No growth after 5 days. Assessment and Plan (1) Acute respiratory failure with hypoxia: Status: Acute (2) Pulmonary nodules: Status: Acute (3) COVID-19: Status: Acute (4) Hypernatremia: Status: Acute Assessment and Plan: 79yo F with HTN, DM2, COPD admitted to [facility] [place] hypoxia due to COVID-19 pneumonia symptom onset 08/11, test positive 08/14, admit 08/20, ICU 08/22 for ARDS patient subsequently transferred to [facility] [place] BLE DVTs diagnosed 08/28 on Lovenox, persistent severe hypoxia. acute hypoxic resp failure due to covid pneumonia Persistent hypoxia, tachypnea and tachycardia, although patient denies shortness of breath or chest pain Continue high-flow oxygen, IV Solu Medrol 40mg twice daily she presented out of window for remdesivir and now in postviral inflammatory phase. Patient feels weak to be out of bed to chair, recommended to sit upright and change position, minimize use of phone,continue oxygen and supportive care Spoke with patient's daughter with help of financial foundations associate in the presence of patient and updated her regarding patient's clinical condition informed her about persistent use of high-flow oxygen and guarded condition. bilateral DVTs cont. therapeutic LMWH 1 mg/kg bid will transition to Eliquis hyperNa resolved DM2 Blood sugars fluctuating continue low-dose of Lantus to avoid hypoglycemia and continue Humalog sliding scale. CAD continue clopidogrel and statins question need for Plavix patient is on it for > 15 years. HTN bp low normal, cont. metoprolol and follow blood pressure closely, lisinopril discontinued. fungal sacral/perineal dermatitis Continue nystatin + Zn oxide, appreciate Wound Care consult FEN NDD2 regular diet, Glucerna tid.
[2020-09-20 16:07] LABS: Glucose, Whole Blood 194 mg/dL (60-115)
[2020-09-20 20:34] LABS: Glucose, Whole Blood 79 mg/dL (60-115)
[2020-09-21] VITALS (11 sets, daily range): BP systolic 99–130; BP diastolic 43–75; PULSE 91–136; RESP 20–41; TEMP 36–37.1; O2SAT 91–99
[2020-09-21] MEDS: 0.9 % Sodium Chloride Flush 3 ML SYRINGE IVFLUSH ×4 (00:29→23:41)
[2020-09-21] MEDS: Omeprazole 20 MG CAPSULE.DR PO (06:08)
[2020-09-21] MEDS: Enoxaparin Sodium 80 MG/0.8 ML SYRINGE 65 MG SUBCUT ×2 (06:08→17:28)
[2020-09-21 06:39] LABS: MANUAL DIFF FLAG NO
[2020-09-21 06:51] LABS: Basophils Percent Auto 0.2 % (0-2); Eosinophils Absolute Auto 0.2 X10*3/uL (0.0-0.4); Eosinophils Percent Auto 2.2 % (0-4); Hematocrit 33.5 % (37-47); Hemoglobin 10.3 g/dl (12.0-16.0); Imm Gran Abs Auto 0.18 X10*3/uL (0.00-0.03); Imm Gran Pct Auto 1.9 % (0.0-0.4); Lymphocytes Percent Auto 31.2 % (20-40); Mean Corpuscular HGB Conc 30.7 g/dl (31.0-35.0); Mean Corpuscular Hemoglobin 25.4 pg (27.0-33.0); Mean Corpuscular Volume 82.7 fL (80-98); Mean Platelet Volume 9.2 fL (9.4-12.3); Monocytes Absolute Auto 0.3 X10*3/uL (0.1-1.2); Monocytes Percent Auto 2.7 % (2-11); Neutrophils Percent Auto 61.8 % (45-73); Platelet Count 276 X10*3/uL (160-400); Red Blood Count 4.05 X10*6/uL (4.20-5.50); Red Cell Distribution Width 14.3 % (11.0-16.0); White Blood Count 9.7 X10*3/uL (4.8-10.8)
[2020-09-21 07:28] LABS: Anion Gap 11 (12-20); Blood Urea Nitrogen 10 mg/dL (9-16); Calcium 8.4 mg/dL (8.4-10.2); Carbon Dioxide 33 mmol/L (22-29); Chloride 101 mmol/L (96-108); Creatinine Clr Calc Pharmacy 92.7; Estimated Glomerular Filt Rate > 60; Glucose Random 107 mg/dL (60-115); Potassium 4.1 mmol/L (3.3-5.1); Sodium 141 mmol/L (135-145)
[2020-09-21 07:51] LABS: Glucose, Whole Blood 139 mg/dL (60-115)
[2020-09-21] MEDS: Metoprolol Tartrate 25 MG TABLET PO ×2 (09:44→22:19)
[2020-09-21] MEDS: Insulin Glargine,Hum.rec.anlog 100 UNIT/ML 10 ML VIAL 8 UNIT SUBCUT (09:44)
[2020-09-21] MEDS: Cholecalciferol (Vitamin D3) 25 MCG TABLET 50 MCG PO (09:44)
[2020-09-21] MEDS: Clopidogrel Bisulfate 75 MG TABLET PO (09:44)
[2020-09-21] MEDS: Nystatin Powder 15 GM BOTTLE 1 APPL TOPICAL ×2 (10:01→22:20)
[2020-09-21 11:31] LABS: Glucose, Whole Blood 222 mg/dL (60-115)
--- NOTE | 2020-09-21 11:47 | MHC.CM.PN ---
Patient is requiring CPAP with 10 liters O2 for +COVID. Discharge disposition is pending PT eval when patient is medically stable. CM will continue to follow patient for discharge needs.
[2020-09-21] MEDS: Insulin Lispro 100 UNIT/ML 3 ML VIAL SUBCUT ×2 (12:11→17:29)
--- NOTE | 2020-09-21 14:15 | MHC.CLN ---
F/U PO INTAKE 25-50% DIET RX; GRD/M/S -APPROPRIATE PT RECEIVES ENSURE AND BELEM TO INCREASE KCALS AND PROMOTE WOUND HEALING WILL ADD PROSOURCE BID TO INCREASE PO PROTEIN FOLLOWING
[2020-09-21 16:09] LABS: Glucose, Whole Blood 175 mg/dL (60-115)
[2020-09-21 19:34] LABS: Glucose, Whole Blood 110 mg/dL (60-115)
[2020-09-22] VITALS (14 sets, daily range): BP systolic 98–127; BP diastolic 54–67; PULSE 80–127; RESP 18–32; TEMP 36–37.1; O2SAT 88–99
[2020-09-22] MEDS: Omeprazole 20 MG CAPSULE.DR PO (06:06)
[2020-09-22] MEDS: Enoxaparin Sodium 80 MG/0.8 ML SYRINGE 65 MG SUBCUT (06:06)
[2020-09-22 07:18] LABS: Glucose, Whole Blood 121 mg/dL (60-115)
[2020-09-22] MEDS: Clopidogrel Bisulfate 75 MG TABLET PO (08:59)
[2020-09-22] MEDS: Insulin Glargine,Hum.rec.anlog 100 UNIT/ML 10 ML VIAL 8 UNIT SUBCUT (08:59)
[2020-09-22] MEDS: Metoprolol Tartrate 25 MG TABLET PO ×2 (08:59→21:01)
[2020-09-22] MEDS: Cholecalciferol (Vitamin D3) 25 MCG TABLET 50 MCG PO (08:59)
[2020-09-22] MEDS: 0.9 % Sodium Chloride 1,000 ML 100 ML IVCONT (08:59)
[2020-09-22] MEDS: 0.9 % Sodium Chloride Flush 3 ML SYRINGE IVFLUSH ×3 (08:59→21:01)
[2020-09-22] MEDS: Nystatin Powder 15 GM BOTTLE 1 APPL TOPICAL ×2 (09:58→21:00)
[2020-09-22] MEDS: guaiFENesin DM 100/10/5 ML 5 ML SYRUP 10 ML PO ×3 (11:10→21:01)
[2020-09-22 11:16] LABS: Glucose, Whole Blood 102 mg/dL (60-115)
--- NOTE | 2020-09-22 13:16 | PM.CCN ---
Critical Care Event Note Summary Date of Service: 09/22/20 Code activated: No Narrative: On exam, respiratory rate 18 to 24, saturating 90-96% on high-flow nasal cannula/non-rebreather, comfortable. Would advised to continue with current management. At this time does not require intensive care unit level of monitoring. Critical Care Time (minutes): 0
--- NOTE | 2020-09-22 15:43 | HO.PM.IMPN ---
Subjective Subjective Date of Service: 09/21/20 Interval History: Patient feels okay, denies chest pain or shortness of breath but noted to be coughing, and hypoxic currently on high-flow oxygen, is tolerating CPAP at night.. ros General no headache, no dizziness no fever chills. CVS no chest pain, no palpitation. Respiratory cough with brown phlegm, no shortness of breath Gastrointestinal no nausea, no vomiting, no abdominal pain Physical Exam Vital Signs: Vital Signs: Last Vital Signs Temp 96.9 F 09/22/20 15:18 Pulse 80 09/22/20 15:18 Resp 20 09/22/20 15:18 BP 114/60 09/22/20 15:18 Pulse Ox 90 L 09/22/20 15:18 Body Mass Index 27.3 General appears weak, tachypneic, not anxious appearing Neck is supple no JVD. CVS regular rate rhythm, Respiratory lungs basilar rhonchi, mild respiratory distress, no wheeze Gastrointestinal abdomen soft, nontender, bowel sounds audible, no guarding , no rigidity. Extremities no clubbing cyanosis or edema. Neuro nonfocal ,speech clear. Skin no rash Objective Data Current Medications Generic Name Dose Route Start Last Admin Trade Name Freq PRN Reason Stop Dose Admin Acetaminophen 650 mg 08/20/20 16:18 08/26/20 22:26 Acetaminophen 325 Mg Tablet PO 650 mg Q6H PRN Administration Pain, Mild (Pain Scale 1-3) Docusate Sodium 100 mg 08/20/20 16:18 09/19/20 03:54 Docusate Sodium 100 Mg Capsule PO 100 mg DAILY PRN Administration Constipation Enoxaparin Sodium 65 mg 08/29/20 06:00 09/22/20 06:06 Enoxaparin Sodium 80 Mg/0.8 Ml Syringe 1 mg/kg (65 mg) 65 mg SUBCUT Administration Q12H [facility] Guaifenesin/Dextromethorphan 10 ml 09/22/20 10:15 09/22/20 11:10 Guaifenesin Dm 100/10/5 Ml 5 Ml Syrup PO 10 ml Q6H [facility] Administration Sodium Chloride 1,000 mls @ 100 mls/hr 09/22/20 08:15 09/22/20 14:17 Ns IVCONT Not Given .Q10H [facility] Insulin Glargine 8 unit 09/19/20 09:00 09/22/20 08:59 Insulin Glargine,Hum.Rec.Anlog 100 Unit/Ml 10 Ml Vial SUBCUT 8 unit DAILY [facility] Administration Insulin Human Lispro 0 unit 08/20/20 16:30 09/22/20 11:30 Insulin Lispro 100 Unit/Ml 3 Ml Vial SUBCUT Not Given QIDACHS [facility] Protocol Lidocaine HCl 15 ml 09/08/20 14:05 09/09/20 10:05 Lidocaine Hcl Viscous 2 % 15 Ml Solution MUCOUS MEM 15 ml Q3H PRN Administration oral pain Metoprolol Tartrate 25 mg 08/29/20 12:55 09/22/20 08:59 Metoprolol Tartrate 25 Mg Tablet PO 25 mg BID [facility] Administration Protocol Morphine Sulfate 1 mg 09/20/20 10:31 Morphine Sulfate 2 Mg/Ml Cartridge IVPUSH Q6H PRN sob Nystatin 1 appl 08/27/20 11:00 09/22/20 09:58 Nystatin Powder 15 Gm Bottle TOPICAL 1 appl BID [facility] Administration Protocol Omeprazole 20 mg 09/19/20 06:30 09/22/20 06:06 Omeprazole 20 Mg Capsule.Dr PO 20 mg DAILY@0630 [facility] Administration Ondansetron HCl 4 mg 08/20/20 16:18 Ondansetron Hcl 4 Mg/2 Ml Vial IVPUSH Q8H PRN Nausea and Vomiting Sodium Chloride 3 ml 08/20/20 16:18 09/22/20 08:59 0.9 % Sodium Chloride Flush 3 Ml Syringe IVFLUSH 3 ml QSHIFT [facility] Administration Vitamin D 50 mcg 08/28/20 09:00 09/22/20 08:59 Cholecalciferol (Vitamin D3) 25 Mcg Tablet PO 50 mcg DAILY [facility] Administration Zinc Oxide 1 appl 09/07/20 10:47 09/07/20 14:41 Zinc Oxide (Triple Paste) 56.7 Gm Oint TOPICAL 1 appl QID PRN Administration SKIN BREAKDOWN/BUTTOCKS/PERINE Labs CBC & Chem 7: 09/21/20 05:41 09/21/20 05:41 Microbiology Microbiology Results: Microbiology 08/30/20 16:44 Blood - Venous Blood Culture - Final No growth after 5 days. 08/30/20 16:44 Blood - Venous Blood Culture - Final No growth after 5 days. 08/27/20 13:24 Blood - Venous Blood Culture - Final No growth after 5 days. 08/27/20 13:24 Blood - Venous Blood Culture - Final No growth after 5 days. 08/30/20 16:35 Sputum - Suctioned Gram Stain - Final 08/30/20 16:35 Sputum - Suctioned Sputum Culture - Final 08/20/20 10:59 Blood - Venous Blood Culture - Final No growth after 5 days. 08/20/20 10:55 Blood - Venous Blood Culture - Final No growth after 5 days. Assessment and Plan (1) Hypernatremia: Status: Acute (2) Acute respiratory failure due to COVID-19: Status: Acute (3) DVT, bilateral lower limbs: Status: Acute Assessment and Plan: 79yo F with HTN, DM2, COPD admitted [place] [facility] for hypoxia due to COVID-19 pneumonia symptom onset 08/11, test positive 08/14, admit 08/20, ICU 08/22 for ARDS patient subsequently transferred to [facility] [place] BLE DVTs diagnosed 08/28 on Lovenox, persistent severe hypoxia. acute hypoxic resp failure due to covid pneumonia No change in hypoxia, tachypnea and tachycardia, therefore will continue high-flow oxygen, IV Solu Medrol 40mg twice daily, goal of oxygen around 90 she presented out of window for remdesivir and now in postviral inflammatory phase. Continue supportive care, cough medicine, encourage Ensure Spoke with patient's daughter with help of rn imcu in the presence of patient and updated her regarding patient's clinical condition informed her about persistent use of high-flow oxygen and guarded condition. bilateral DVTs cont. therapeutic LMWH 1 mg/kg bid will transition to Eliquis hyperNa resolved DM2 Blood sugars fluctuating continue low-dose of Lantus to avoid hypoglycemia and continue Humalog sliding scale. CAD continue statins will discontinue Plavix, due to blood tinged sputum. HTN bp low normal, cont. metoprolol and follow blood pressure closely, lisinopril discontinued. fungal sacral/perineal dermatitis Continue nystatin + Zn oxide, appreciate Wound Care consult FEN NDD2 regular diet, Glucerna tid.
[2020-09-22 16:05] LABS: Glucose, Whole Blood 128 mg/dL (60-115)
--- NOTE | 2020-09-22 16:08 | P.PNIM_ITS ---
Subjective Subjective Date of Service: 09/22/20 Interval History: Patient feeling better this morning history via tube backer patient denies chest pain or shortness of breath wishes to be out of bed to chair for couple hours only, requesting physical therapy for ambulation, noted to have blood-tinged sputum. ros General no headache, no dizziness no fever chills. CVS no chest pain, no palpitation. Respiratory blood tinged sputum, no shortness of breath Gastrointestinal no nausea, no vomiting, no abdominal pain Physical Exam Vital Signs: Vital Signs: Last Vital Signs Temp 96.9 F 09/22/20 15:18 Pulse 80 09/22/20 15:18 Resp 20 09/22/20 15:44 BP 114/60 09/22/20 15:18 Pulse Ox 90 L 09/22/20 15:18 Body Mass Index 27.3 General appears weak, fatigued, tachypneic Neck is supple, no JVD. CVS regular rate rhythm, Respiratory lungs rhonchi at bases, no respiratory distress, no wheeze Gastrointestinal abdomen soft, nontender, bowel sounds audible, no guarding , no rigidity. Extremities no clubbing cyanosis or edema. Neuro nonfocal ,speech clear. Skin no rash Objective Data Current Medications Generic Name Dose Route Start Last Admin Trade Name Freq PRN Reason Stop Dose Admin Acetaminophen 650 mg 08/20/20 16:18 08/26/20 22:26 Acetaminophen 325 Mg Tablet PO 650 mg Q6H PRN Administration Pain, Mild (Pain Scale 1-3) Docusate Sodium 100 mg 08/20/20 16:18 09/19/20 03:54 Docusate Sodium 100 Mg Capsule PO 100 mg DAILY PRN Administration Constipation Enoxaparin Sodium 65 mg 08/29/20 06:00 09/22/20 06:06 Enoxaparin Sodium 80 Mg/0.8 Ml Syringe 1 mg/kg (65 mg) 65 mg SUBCUT Administration Q12H [facility] Guaifenesin/Dextromethorphan 10 ml 09/22/20 10:15 09/22/20 15:43 Guaifenesin Dm 100/10/5 Ml 5 Ml Syrup PO 10 ml Q6H [facility] Administration Sodium Chloride 1,000 mls @ 100 mls/hr 09/22/20 08:15 09/22/20 14:17 Ns IVCONT Not Given .Q10H [facility] Insulin Glargine 8 unit 09/19/20 09:00 09/22/20 08:59 Insulin Glargine,Hum.Rec.Anlog 100 Unit/Ml 10 Ml Vial SUBCUT 8 unit DAILY [facility] Administration Insulin Human Lispro 0 unit 08/20/20 16:30 09/22/20 11:30 Insulin Lispro 100 Unit/Ml 3 Ml Vial SUBCUT Not Given QIDACHS [facility] Protocol Lidocaine HCl 15 ml 09/08/20 14:05 09/09/20 10:05 Lidocaine Hcl Viscous 2 % 15 Ml Solution MUCOUS MEM 15 ml Q3H PRN Administration oral pain Metoprolol Tartrate 25 mg 08/29/20 12:55 09/22/20 08:59 Metoprolol Tartrate 25 Mg Tablet PO 25 mg BID [facility] Administration Protocol Morphine Sulfate 1 mg 09/20/20 10:31 Morphine Sulfate 2 Mg/Ml Cartridge IVPUSH Q6H PRN sob Nystatin 1 appl 08/27/20 11:00 09/22/20 09:58 Nystatin Powder 15 Gm Bottle TOPICAL 1 appl BID [facility] Administration Protocol Omeprazole 20 mg 09/19/20 06:30 09/22/20 06:06 Omeprazole 20 Mg Capsule. PO 20 mg DAILY@0630 [facility] Administration Ondansetron HCl 4 mg 08/20/20 16:18 Ondansetron Hcl 4 Mg/2 Ml Vial IVPUSH Q8H PRN Nausea and Vomiting Sodium Chloride 3 ml 08/20/20 16:18 09/22/20 15:42 0.9 % Sodium Chloride Flush 3 Ml Syringe IVFLUSH 3 ml QSHIFT [facility] Administration Vitamin D 50 mcg 08/28/20 09:00 09/22/20 08:59 Cholecalciferol (Vitamin D3) 25 Mcg Tablet PO 50 mcg DAILY [facility] Administration Zinc Oxide 1 appl 09/07/20 10:47 09/07/20 14:41 Zinc Oxide (Triple Paste) 56.7 Gm Oint TOPICAL 1 appl QID PRN Administration SKIN BREAKDOWN/BUTTOCKS/PERINE Labs CBC & Chem 7: 09/21/20 05:41 09/21/20 05:41 Microbiology Microbiology Results: Microbiology 08/30/20 16:44 Blood - Venous Blood Culture - Final No growth after 5 days. 08/30/20 16:44 Blood - Venous Blood Culture - Final No growth after 5 days. 08/27/20 13:24 Blood - Venous Blood Culture - Final No growth after 5 days. 08/27/20 13:24 Blood - Venous Blood Culture - Final No growth after 5 days. 08/30/20 16:35 Sputum - Suctioned Gram Stain - Final 08/30/20 16:35 Sputum - Suctioned Sputum Culture - Final 08/20/20 10:59 Blood - Venous Blood Culture - Final No growth after 5 days. 08/20/20 10:55 Blood - Venous Blood Culture - Final No growth after 5 days. Assessment and Plan (1) DVT, bilateral lower limbs: Status: Acute (2) Hypernatremia: Status: Acute (3) Acute respiratory failure with hypoxia: Status: Acute (4) COVID-19: Status: Acute (5) Acute respiratory failure due to COVID-19: Status: Acute (6) HLD (hyperlipidemia): Status: Acute (7) HTN (hypertension): Status: Acute Assessment and Plan: 79yo F with HTN, DM2, COPD admitted to [facility] [place] for hypoxia due to COVID-19 pneumonia symptom onset 08/11, test positive 08/14, admit 08/20, ICU 08/22 for ARDS patient subsequently transferred to [facility] [place] BLE DVTs diagnosed 08/28 on Lovenox, persistent severe hypoxia. acute hypoxic resp failure due to covid pneumonia Persistent hypoxia, tachypnea and tachycardia, but clinically feeling better, denies shortness of breath or chest pain Continue high-flow oxygen, IV Solu Medrol 40mg twice daily, case discussed with streetcar starter and he recommended to continue current treatment Will recommend out of bed to chair, and change position, minimize use of phone,continue oxygen , add cough medicine and supportive care Blood tinged sputum likely due to lovenox , will DC Lovenox follow CBC. Patient is not a candidate for physical therapy due to significant hypoxia. Will give 500 mL of IV fluid due to decreased by mouth intake, encourage Ensure can bilateral DVTs on therapeutic LMWH 1 mg/kg bid will transition to low-dose Eliquis due to blood-tinged sputum, total duration 3 months, patient made aware of risk of bleeding with anticoagulation and is agreeable for treatment. hyperNa resolved DM2 Blood sugars fluctuating continue low-dose of Lantus to avoid hypoglycemia and continue Humalog sliding scale. CAD continue beta-blockers and statins HTN bp low normal, cont. metoprolol and follow blood pressure closely, lisinopril discontinued. fungal sacral/perineal dermatitis Continue nystatin + Zn oxide, appreciate Wound Care consult FEN NDD2 regular diet, Glucerna tid.
[2020-09-22 19:39] LABS: Glucose, Whole Blood 112 mg/dL (60-115)
[2020-09-22] MEDS: Apixaban 2.5 MG TABLET PO (21:01)
[2020-09-23] VITALS (10 sets, daily range): BP systolic 103–140; BP diastolic 52–75; PULSE 103–134; RESP 20–22; TEMP 35.9–36.7; O2SAT 88–100
[2020-09-23] MEDS: Omeprazole 20 MG CAPSULE.DR PO (05:28)
[2020-09-23] MEDS: guaiFENesin DM 100/10/5 ML 5 ML SYRUP 10 ML PO ×3 (05:28→15:52)
[2020-09-23 06:59] LABS: MANUAL DIFF FLAG NO
[2020-09-23 07:10] LABS: Basophils Percent Auto 0.4 % (0-2); Eosinophils Absolute Auto 0.2 X10*3/uL (0.0-0.4); Eosinophils Percent Auto 1.5 % (0-4); Hematocrit 34.4 % (37-47); Hemoglobin 10.7 g/dl (12.0-16.0); Imm Gran Abs Auto 0.13 X10*3/uL (0.00-0.03); Imm Gran Pct Auto 1.3 % (0.0-0.4); Lymphocytes Absolute Auto 3.7 X10*3/uL (1.2-4.9); Lymphocytes Percent Auto 36.3 % (20-40); Mean Corpuscular HGB Conc 31.1 g/dl (31.0-35.0); Mean Corpuscular Volume 83.7 fL (80-98); Mean Platelet Volume 8.9 fL (9.4-12.3); Monocytes Absolute Auto 0.3 X10*3/uL (0.1-1.2); Monocytes Percent Auto 2.7 % (2-11); Neutrophils Absolute Auto 5.9 X10*3/uL (2.0-8.3); Neutrophils Percent Auto 57.8 % (45-73); Platelet Count 306 X10*3/uL (160-400); Red Blood Count 4.11 X10*6/uL (4.20-5.50); Red Cell Distribution Width 14.2 % (11.0-16.0); White Blood Count 10.3 X10*3/uL (4.8-10.8)
[2020-09-23 07:12] LABS: Glucose, Whole Blood 102 mg/dL (60-115)
[2020-09-23 07:38] LABS: Anion Gap 12 (12-20); Blood Urea Nitrogen 12 mg/dL (9-16); Carbon Dioxide 33 mmol/L (22-29); Chloride 98 mmol/L (96-108); Creatinine Clr Calc Pharmacy 90.5; Estimated Glomerular Filt Rate > 60; Glucose Random 113 mg/dL (60-115); Sodium 139 mmol/L (135-145)
[2020-09-23] MEDS: Morphine Sulfate 2 MG/ML CARTRIDGE 1 MG IVPUSH (08:42)
[2020-09-23] MEDS: Docusate Sodium 100 MG CAPSULE PO ×2 (09:56→20:41)
[2020-09-23] MEDS: 0.9 % Sodium Chloride Flush 3 ML SYRINGE IVFLUSH ×2 (09:56→15:52)
[2020-09-23] MEDS: Cholecalciferol (Vitamin D3) 25 MCG TABLET 50 MCG PO (09:56)
[2020-09-23] MEDS: Metoprolol Tartrate 25 MG TABLET PO ×2 (09:56→20:41)
[2020-09-23] MEDS: Apixaban 2.5 MG TABLET PO ×2 (09:57→20:41)
[2020-09-23] MEDS: Insulin Glargine,Hum.rec.anlog 100 UNIT/ML 10 ML VIAL 8 UNIT SUBCUT (09:57)
[2020-09-23] MEDS: Nystatin Powder 15 GM BOTTLE 1 APPL TOPICAL ×2 (09:58→21:00)
--- NOTE | 2020-09-23 10:00 | HO.PM.IMPN ---
Subjective Subjective Date of Service: 09/23/20 Interval History: History obtained via data services developer patient denies shortness of breath , complaining of right lower abdominal discomfort, denies bowel movement in last couple days, denies nausea vomiting, decreased by mouth intake noted by RN. No further episodes of blood-tinged sputum. ROS General no headache, no dizziness no fever chills. CVS no chest pain, no palpitation. Respiratory cough , no shortness of breath Gastrointestinal no nausea, no vomiting, right lower quadrant abdominal pain, constipation Physical Exam Vital Signs: Vital Signs: Last Vital Signs Temp 98.1 F 09/23/20 07:02 Pulse 118 H 09/23/20 07:02 Resp 20 09/23/20 07:49 BP 122/75 09/23/20 07:02 Pulse Ox 100 09/23/20 07:02 Body Mass Index 27.3 General sitting comfortably up appears less fatigue and weak, no distress Neck is supple, no JVD. CVS regular rate rhythm, Respiratory lungs rhonchi at bases, no respiratory distress, no wheeze Gastrointestinal abdomen soft, bowel sounds audible, no guarding , no rigidity, mild right lower abdominal discomfort with palpation, no palpable mass. Extremities no clubbing cyanosis or edema. Neuro nonfocal ,speech clear. Skin no rash Objective Data Current Medications Generic Name Dose Route Start Last Admin Trade Name Freq PRN Reason Stop Dose Admin Acetaminophen 650 mg 08/20/20 16:18 08/26/20 22:26 Acetaminophen 325 Mg Tablet PO 650 mg Q6H PRN Administration Pain, Mild (Pain Scale 1-3) Apixaban 2.5 mg 09/22/20 21:00 09/23/20 09:57 Apixaban 2.5 Mg Tablet PO 2.5 mg BID [facility] Administration Docusate Sodium 100 mg 08/20/20 16:18 09/23/20 09:56 Docusate Sodium 100 Mg Capsule PO 100 mg DAILY PRN Administration Constipation Guaifenesin/Dextromethorphan 10 ml 09/22/20 10:15 09/23/20 09:56 Guaifenesin Dm 100/10/5 Ml 5 Ml Syrup PO 10 ml Q6H [facility] Administration Insulin Glargine 8 unit 09/19/20 09:00 09/23/20 09:57 Insulin Glargine,Hum.Rec.Anlog 100 Unit/Ml 10 Ml Vial SUBCUT 8 unit DAILY [facility] Administration Insulin Human Lispro 0 unit 08/20/20 16:30 09/23/20 08:36 Insulin Lispro 100 Unit/Ml 3 Ml Vial SUBCUT Not Given QIDACHS [facility] Protocol Lidocaine HCl 15 ml 09/08/20 14:05 09/09/20 10:05 Lidocaine Hcl Viscous 2 % 15 Ml Solution MUCOUS MEM 15 ml Q3H PRN Administration oral pain Metoprolol Tartrate 25 mg 08/29/20 12:55 09/23/20 09:56 Metoprolol Tartrate 25 Mg Tablet PO 25 mg BID [facility] Administration Protocol Morphine Sulfate 1 mg 09/20/20 10:31 09/23/20 08:42 Morphine Sulfate 2 Mg/Ml Cartridge IVPUSH 1 mg Q6H PRN Administration sob Nystatin 1 appl 08/27/20 11:00 09/23/20 09:58 Nystatin Powder 15 Gm Bottle TOPICAL 1 appl BID [facility] Administration Protocol Omeprazole 20 mg 09/19/20 06:30 09/23/20 05:28 Omeprazole 20 Mg Capsule. PO 20 mg DAILY@0630 [facility] Administration Ondansetron HCl 4 mg 08/20/20 16:18 Ondansetron Hcl 4 Mg/2 Ml Vial IVPUSH Q8H PRN Nausea and Vomiting Sodium Chloride 3 ml 08/20/20 16:18 09/23/20 09:56 0.9 % Sodium Chloride Flush 3 Ml Syringe IVFLUSH 3 ml QSHIFT [facility] Administration Vitamin D 50 mcg 08/28/20 09:00 09/23/20 09:56 Cholecalciferol (Vitamin D3) 25 Mcg Tablet PO 50 mcg DAILY [facility] Administration Zinc Oxide 1 appl 09/07/20 10:47 09/07/20 14:41 Zinc Oxide (Triple Paste) 56.7 Gm Oint TOPICAL 1 appl QID PRN Administration SKIN BREAKDOWN/BUTTOCKS/PERINE Labs CBC & Chem 7: 09/23/20 05:59 09/23/20 05:59 Microbiology Microbiology Results: Microbiology 08/30/20 16:44 Blood - Venous Blood Culture - Final No growth after 5 days. 08/30/20 16:44 Blood - Venous Blood Culture - Final No growth after 5 days. 08/27/20 13:24 Blood - Venous Blood Culture - Final No growth after 5 days. 08/27/20 13:24 Blood - Venous Blood Culture - Final No growth after 5 days. 08/30/20 16:35 Sputum - Suctioned Gram Stain - Final 08/30/20 16:35 Sputum - Suctioned Sputum Culture - Final 08/20/20 10:59 Blood - Venous Blood Culture - Final No growth after 5 days. 08/20/20 10:55 Blood - Venous Blood Culture - Final No growth after 5 days. Assessment and Plan (1) Acute respiratory failure with hypoxia: Status: Acute (2) DVT, bilateral lower limbs: Status: Acute (3) Hypernatremia: Status: Acute (4) COVID-19: Status: Acute (5) HLD (hyperlipidemia): Status: Acute (6) HTN (hypertension): Status: Acute (7) T2DM (type 2 diabetes mellitus): Status: Acute (8) COPD (chronic obstructive pulmonary disease): Status: Acute Assessment and Plan: 79yo F with HTN, DM2, COPD admitted to [facility] [place] for hypoxia due to COVID-19 pneumonia symptom onset 08/11, test positive 08/14, admit 08/20, ICU 08/22 for ARDS patient subsequently transferred to [facility] [place] BLE DVTs diagnosed 08/28 on Lovenox, persistent severe hypoxia. acute hypoxic resp failure due to covid pneumonia, did not receive remdesivir since presented out of window for remdesivir Persistent hypoxia, and tachycardia, but patient clinically feeling better, denies shortness of breath or chest pain, tolerated out of bed to chair for few hours yesterday Continue high-flow oxygen, IV Solu Medrol 40mg twice daily, and gradually wean, rec. change in position, continue cough medicine and supportive care Once oxygenation stabilizes will obtain physical therapy consult, encourage Ensure bilateral DVTs s/p therapeutic LMWH 1 mg/kg bid from 08/29/20 thru 09/21 now on low-dose Eliquis due to blood-tinged sputum, total duration 3 months, patient made aware of risk of bleeding with anticoagulation Constipation will add stool softener hyperNa resolved repeat sodium 139 today DM2 Blood sugars stable, continue low-dose of Lantus to avoid hypoglycemia and continue Humalog sliding scale. CAD continue beta-blockers and statins HTN bp stable on metoprolol 25 b.i.d. follow blood pressure closely, lisinopril discontinued. fungal sacral/perineal dermatitis improving continue nystatin + Zn oxide, appreciate Wound Care consult FEN NDD2 regular diet, Glucerna tid.
[2020-09-23 11:10] LABS: Glucose, Whole Blood 273 mg/dL (60-115)
[2020-09-23] MEDS: Milk of Magnesia 30 ML ORAL.SUSP PO (11:52)
[2020-09-23] MEDS: Insulin Lispro 100 UNIT/ML 3 ML VIAL SUBCUT (11:52)
[2020-09-23] MEDS: Nystatin Oral Susp 500,000 UNIT/5 ML ORAL.SUSP 500000 UNIT PO ×3 (13:50→20:41)
[2020-09-23 16:10] LABS: Glucose, Whole Blood 97 mg/dL (60-115)
[2020-09-23 19:54] LABS: Glucose, Whole Blood 145 mg/dL (60-115)
[2020-09-23] MEDS: Lidocaine HCl Viscous 2 % 15 ML SOLUTION MUCOUS MEM (20:41)
[2020-09-24] VITALS (16 sets, daily range): BP systolic 96–121; BP diastolic 51–78; PULSE 85–131; RESP 16–22; TEMP 36–36.7; O2SAT 92–99
[2020-09-24] MEDS: 0.9 % Sodium Chloride Flush 3 ML SYRINGE IVFLUSH ×3 (00:53→23:59)
[2020-09-24] MEDS: Omeprazole 20 MG CAPSULE.DR PO (06:16)
[2020-09-24 07:43] LABS: Glucose, Whole Blood 124 mg/dL (60-115)
[2020-09-24] MEDS: Insulin Glargine,Hum.rec.anlog 100 UNIT/ML 10 ML VIAL 8 UNIT SUBCUT (09:00)
[2020-09-24] MEDS: Apixaban 2.5 MG TABLET PO ×2 (09:01→20:56)
[2020-09-24] MEDS: Metoprolol Tartrate 25 MG TABLET PO ×2 (09:01→20:55)
[2020-09-24] MEDS: Docusate Sodium 100 MG CAPSULE PO ×2 (09:01→20:56)
[2020-09-24] MEDS: Cholecalciferol (Vitamin D3) 25 MCG TABLET 50 MCG PO (09:01)
[2020-09-24] MEDS: Nystatin Powder 15 GM BOTTLE 1 APPL TOPICAL ×2 (09:01→21:11)
--- NOTE | 2020-09-24 09:20 | MHC.CM.PN ---
Patient continues to need O2 at 60 liters high flow with FIO2 at 100% via NRB mask r/t +COVID. Discharge plan is pending PT rose. CM will continue to follow for discharge needs.
[2020-09-24] MEDS: Morphine Sulfate 2 MG/ML CARTRIDGE 1 MG IVPUSH (09:39)
[2020-09-24] MEDS: Lactulose 20 GM/30 ML SOLUTION 10 GM PO (10:04)
[2020-09-24] MEDS: Lactated Ringers 500 ML 100 ML IVCONT (10:08)
[2020-09-24 11:49] LABS: Glucose, Whole Blood 92 mg/dL (60-115)
--- NOTE | 2020-09-24 12:55 | HO.PM.IMPN ---
Subjective Subjective Date of Service: 09/24/20 Interval History: History via interpreter for the deaf patient complaining of lower abdominal discomfort, has poor appetite , denies nausea vomiting, complaining of palpitations, denies chest pain, currently on 100% non-rebreather and 70 L of high-flow oxygen. ROS General no headache, no dizziness no fever chills. CVS no chest pain, palpitation. Respiratory cough , no shortness of breath Gastrointestinal no nausea, no vomiting, right lower quadrant abdominal pain, constipation Physical Exam Vital Signs: Vital Signs: Last Vital Signs Temp 97.4 F 09/24/20 11:28 Pulse 104 H 09/24/20 11:28 Resp 18 09/24/20 11:49 BP 112/78 09/24/20 11:45 Pulse Ox 99 09/24/20 08:00 Body Mass Index 27.3 General appears tired, fatigue and weak, no distress Neck is supple, no JVD. CVS regular rate rhythm, Respiratory lungs rhonchi at bases, no respiratory distress, no wheeze Gastrointestinal abdomen soft, bowel sounds audible, no guarding , no rigidity, mild bilateral lower abdominal discomfort with palpation, no palpable mass. Extremities no clubbing cyanosis or edema. Neuro nonfocal ,speech clear. Skin no rash Objective Data Current Medications Generic Name Dose Route Start Last Admin Trade Name Freq PRN Reason Stop Dose Admin Acetaminophen 650 mg 08/20/20 16:18 08/26/20 22:26 Acetaminophen 325 Mg Tablet PO 650 mg Q6H PRN Administration Pain, Mild (Pain Scale 1-3) Apixaban 2.5 mg 09/22/20 21:00 09/24/20 09:01 Apixaban 2.5 Mg Tablet PO 2.5 mg BID [facility] Administration Docusate Sodium 100 mg 09/23/20 10:45 09/24/20 09:01 Docusate Sodium 100 Mg Capsule PO 100 mg BID [facility] Administration Guaifenesin/Dextromethorphan 10 ml 09/22/20 10:15 09/24/20 09:17 Guaifenesin Dm 100/10/5 Ml 5 Ml Syrup PO Not Given Q6H [facility] Lactated Ringer's 500 mls @ 100 mls/hr 09/24/20 10:00 09/24/20 10:08 Lr IVCONT 100 mls/hr .Q5H [facility] Administration Insulin Glargine 8 unit 09/19/20 09:00 09/24/20 09:00 Insulin Glargine,Hum.Rec.Anlog 100 Unit/Ml 10 Ml Vial SUBCUT 8 unit DAILY [facility] Administration Insulin Human Lispro 0 unit 08/20/20 16:30 09/24/20 12:31 Insulin Lispro 100 Unit/Ml 3 Ml Vial SUBCUT Not Given QIDACHS [facility] Protocol Lidocaine HCl 15 ml 09/08/20 14:05 09/23/20 20:41 Lidocaine Hcl Viscous 2 % 15 Ml Solution MUCOUS MEM 15 ml Q3H PRN Administration oral pain Magnesium Hydroxide 30 ml 09/23/20 10:32 09/23/20 11:52 Milk Of Magnesia 30 Ml Oral.Susp PO 30 ml DAILY PRN Administration constipation Metoprolol Tartrate 25 mg 08/29/20 12:55 09/24/20 09:01 Metoprolol Tartrate 25 Mg Tablet PO 25 mg BID [facility] Administration Protocol Morphine Sulfate 1 mg 09/20/20 10:31 09/24/20 09:39 Morphine Sulfate 2 Mg/Ml Cartridge IVPUSH 1 mg Q6H PRN Administration sob Nystatin 1 appl 08/27/20 11:00 09/24/20 09:01 Nystatin Powder 15 Gm Bottle TOPICAL 1 appl BID [facility] Administration Protocol Nystatin 500,000 unit 09/23/20 13:00 09/24/20 09:17 Nystatin Oral Susp 500,000 Unit/5 Ml Oral.Susp PO Not Given QID [facility] Protocol Omeprazole 20 mg 09/19/20 06:30 09/24/20 06:16 Omeprazole 20 Mg Capsule. PO 20 mg DAILY@0630 [facility] Administration Ondansetron HCl 4 mg 08/20/20 16:18 Ondansetron Hcl 4 Mg/2 Ml Vial IVPUSH Q8H PRN Nausea and Vomiting Sodium Chloride 3 ml 08/20/20 16:18 09/24/20 09:00 0.9 % Sodium Chloride Flush 3 Ml Syringe IVFLUSH 3 ml QSHIFT [facility] Administration Vitamin D 50 mcg 08/28/20 09:00 09/24/20 09:01 Cholecalciferol (Vitamin D3) 25 Mcg Tablet PO 50 mcg DAILY [facility] Administration Zinc Oxide 1 appl 09/07/20 10:47 09/07/20 14:41 Zinc Oxide (Triple Paste) 56.7 Gm Oint TOPICAL 1 appl QID PRN Administration SKIN BREAKDOWN/BUTTOCKS/PERINE Labs CBC & Chem 7: 09/23/20 05:59 09/23/20 05:59 Microbiology Microbiology Results: Microbiology 08/30/20 16:44 Blood - Venous Blood Culture - Final No growth after 5 days. 08/30/20 16:44 Blood - Venous Blood Culture - Final No growth after 5 days. 08/27/20 13:24 Blood - Venous Blood Culture - Final No growth after 5 days. 08/27/20 13:24 Blood - Venous Blood Culture - Final No growth after 5 days. 08/30/20 16:35 Sputum - Suctioned Gram Stain - Final 08/30/20 16:35 Sputum - Suctioned Sputum Culture - Final 08/20/20 10:59 Blood - Venous Blood Culture - Final No growth after 5 days. 08/20/20 10:55 Blood - Venous Blood Culture - Final No growth after 5 days. Assessment and Plan (1) Acute respiratory failure with hypoxia: Status: Acute (2) DVT, bilateral lower limbs: Status: Acute (3) Hypernatremia: Status: Acute (4) COVID-19: Status: Acute (5) Acute respiratory failure due to COVID-19: Status: Acute (6) HLD (hyperlipidemia): Status: Acute (7) HTN (hypertension): Status: Acute (8) T2DM (type 2 diabetes mellitus): Status: Acute (9) COPD (chronic obstructive pulmonary disease): Status: Acute Assessment and Plan: 79yo F with HTN, DM2, COPD admitted to [facility] for hypoxia due to COVID-19 pneumonia symptom onset 08/11, test positive 08/14, admit 08/20, ICU 08/22 for ARDS patient subsequently transferred to [facility] BLE DVTs diagnosed 08/28 on Lovenox, persistent severe hypoxia. acute hypoxic resp failure due to covid pneumonia, did not receive remdesivir since presented out of window for remdesivir Persistent hypoxia, and tachycardia, patient appears weak this morning, but denies shortness of breath or chest pain Continue high-flow oxygen, IV Solu Medrol 40mg twice daily, and gradually wean, rec. change in position, continue cough medicine and supportive care Will give 500 mL of IV fluid due to decreased by mouth intake likely dehydration contributing to tachycardia, encouraged to take Ensure, On repeat examination later patient appears better, oxygenation is stable will DC 100% non-rebreather continue high-flow oxygen., continue as needed morphine for distress Patient evaluated by rail car loader on 09/22 he recommend to continue current treatment and if oxygenation drops below mid 80s will reconsult rail car loader. bilateral DVTs s/p therapeutic LMWH 1 mg/kg bid from 08/29/20 thru 09/21 now on low-dose Eliquis due to blood-tinged sputum, total duration 3 months, patient made aware of risk of bleeding with anticoagulation Constipation continue stool softener Colace 100 mg b.i.d. add lactulose if no response will give enema hyperNa resolved repeat sodium 139 DM2 Blood sugars stable, continue low-dose of Lantus to avoid hypoglycemia and continue Humalog sliding scale. CAD continue beta-blockers and statins HTN bp stable on metoprolol 25 b.i.d. follow blood pressure closely, lisinopril discontinued due to hypotension. No room to increase dose of metoprolol for tachycardia due to low blood pressure. fungal sacral/perineal dermatitis improving continue nystatin + Zn oxide, appreciate Wound Care consult FEN NDD2 regular diet, Glucerna tid.
--- NOTE | 2020-09-24 14:03 | PC.NURSE ---
At bedside with [employer] financials developer and MD. Patient c/o tachycardia , and lower abdominal pain due to constipation. HR 120s-140s on tele. New order for 500CC LR and 1mg IV morphine given for SOB. Lactulose given for constipation. Patient repositioned q2 hrs. Awaiting wound consult for pressure injury to buttocks. Resting comfortably in bed. At this time sinus HR 90s on tele. Denies any chest pain or discomfort. Encouraged to increase po intake.
--- NOTE | 2020-09-24 14:13 | MHC.CLN ---
RE: CONSULT PO INTAKE 25-50%CONTINUES DIET RX; GRD/M/S -APPROPRIATE PT RECEIVES ENSURE, PROSOURCE AND BELEM TO INCREASE KCALS AND PROMOTE WOUND HEALING PT IS RECEIVING MAXIMUM PO NUTRITION SUPPORT CONSIDER PPN D10 AA4.25 AT 40CC/HR TO MAXIMIZE NUTRITION FOLLOWING
--- NOTE | 2020-09-24 15:33 | HO.WOUNDCONS ---
History of Present Illness Data of Consult Service Date: 09/24/20 Requesting physician: Yaima Ghotra Primary Care Provider: Alva Keyes NP HPI Reason for consult: coccyx wound 79-year-old female admitted on August 20 now with prolonged hospital stay for primary diagnosis of respiratory illness associated with COVID-19, superimposed upon history of asthma, interstital fibrosis and COPD. On chronic inhalers. Carries a history of diabetes mellitus. On decadron. CT scan showed no evidence of PE. Not on remdesivir severe due to chronicity of presentation. No prior history of debility is reported. She has a history of right shoulder bursitis. [facility] Medical History Asthma Atherosclerotic cardiovascular disease Bursitis of right shoulder COPD (chronic obstructive pulmonary disease) Essential hypertension High cholesterol HLD (hyperlipidemia) HTN (hypertension) Hyperlipidemia, unspecified Pulmonary nodules T2DM (type 2 diabetes mellitus) Type 2 diabetes mellitus with unspecified complications Functional capacity: uses cane/walker Family History Mother HTN (hypertension) Surgical History History of bunionectomy History of total abdominal hysterectomy and bilateral salpingo-oophorectomy Hx of colonoscopy Social History (Updated 08/20/20 @ 15:26 by LIS Schmitt) Household Members: None Housing: Apartment Alcohol intake: never Smoking Status: Former smoker Second Hand Smoke Exposure: No service: No Current occupational status: retired Meds Allergies Allergy/AdvReac Type Severity Reaction Status Date / Time codeine [Codeine] Allergy Mild DIZZINESS, Verified 06/28/20 13:46 VOMITING insulin lispro Allergy Unknown NAUSEA & Verified 06/28/20 13:46 [INSULIN LISPRO] VOMITING oxycodone [OXYCODONE] Allergy Unknown NAUSEA & Verified 06/28/20 13:46 VOMITING Active Medications: Current Medications Generic Name Dose Route Start Last Admin Trade Name Freq PRN Reason Stop Dose Admin Acetaminophen 650 mg 08/20/20 16:18 08/26/20 22:26 Acetaminophen 325 Mg Tablet PO 650 mg Q6H PRN Administration Pain, Mild (Pain Scale 1-3) Apixaban 2.5 mg 09/22/20 21:00 09/24/20 09:01 Apixaban 2.5 Mg Tablet PO 2.5 mg BID LUCIE Administration Docusate Sodium 100 mg 09/23/20 10:45 09/24/20 09:01 Docusate Sodium 100 Mg Capsule PO 100 mg BID [facility] Administration Guaifenesin/Dextromethorphan 10 ml 09/22/20 10:15 09/24/20 09:17 Guaifenesin Dm 100/10/5 Ml 5 Ml Syrup PO Not Given Q6H [facility] Lactated Ringer's 500 mls @ 100 mls/hr 09/24/20 10:00 09/24/20 10:08 Lr IVCONT 100 mls/hr .Q5H [facility] Administration Insulin Glargine 8 unit 09/19/20 09:00 09/24/20 09:00 Insulin Glargine,Hum.Rec.Anlog 100 Unit/Ml 10 Ml Vial SUBCUT 8 unit DAILY [facility] Administration Insulin Human Lispro 0 unit 08/20/20 16:30 09/24/20 12:31 Insulin Lispro 100 Unit/Ml 3 Ml Vial SUBCUT Not Given QIDACHS [facility] Protocol Lidocaine HCl 15 ml 09/08/20 14:05 09/23/20 20:41 Lidocaine Hcl Viscous 2 % 15 Ml Solution MUCOUS MEM 15 ml Q3H PRN Administration oral pain Magnesium Hydroxide 30 ml 09/23/20 10:32 09/23/20 11:52 Milk Of Magnesia 30 Ml Oral.Susp PO 30 ml DAILY PRN Administration constipation Metoprolol Tartrate 25 mg 08/29/20 12:55 09/24/20 09:01 Metoprolol Tartrate 25 Mg Tablet PO 25 mg BID [facility] Administration Protocol Morphine Sulfate 1 mg 09/20/20 10:31 09/24/20 09:39 Morphine Sulfate 2 Mg/Ml Cartridge IVPUSH 1 mg Q6H PRN Administration sob Nystatin 1 appl 08/27/20 11:00 09/24/20 09:01 Nystatin Powder 15 Gm Bottle TOPICAL 1 appl BID [facility] Administration Protocol Nystatin 500,000 unit 09/23/20 13:00 09/24/20 14:50 Nystatin Oral Susp 500,000 Unit/5 Ml Oral.Susp PO Not Given QID [facility] Protocol Omeprazole 20 mg 09/19/20 06:30 09/24/20 06:16 Omeprazole 20 Mg Capsule. PO 20 mg DAILY@0630 [facility] Administration Ondansetron HCl 4 mg 08/20/20 16:18 Ondansetron Hcl 4 Mg/2 Ml Vial IVPUSH Q8H PRN Nausea and Vomiting Sodium Chloride 3 ml 08/20/20 16:18 09/24/20 09:00 0.9 % Sodium Chloride Flush 3 Ml Syringe IVFLUSH 3 ml QSHIFT [facility] Administration Vitamin D 50 mcg 08/28/20 09:00 09/24/20 09:01 Cholecalciferol (Vitamin D3) 25 Mcg Tablet PO 50 mcg DAILY [facility] Administration Zinc Oxide 1 appl 09/07/20 10:47 09/07/20 14:41 Zinc Oxide (Triple Paste) 56.7 Gm Oint TOPICAL 1 appl QID PRN Administration SKIN BREAKDOWN/BUTTOCKS/PERINE Home Medications Medication Instructions Recorded Confirmed Last Taken Type atorvastatin 80 mg tablet 80 mg PO BEDTIME 05/30/20 08/20/20 Unknown History calcium carbonate 600 mg (1,500 1 tab PO BID 05/30/20 08/20/20 Unknown History mg)-vitamin D3 400 unit tablet clopidogrel 75 mg tablet 75 mg PO DAILY 05/30/20 08/20/20 Unknown History ergocalciferol (vitamin D2) 1,250 1,250 mcg PO Q30D 05/30/20 08/20/20 Unknown History mcg (50,000 unit) capsule ezetimibe 10 mg tablet 10 mg PO QAM 05/30/20 08/20/20 Unknown History metformin 1,000 mg tablet 1,000 mg PO BID 05/30/20 08/20/20 Unknown History metoprolol succinate 50 mg 50 mg PO DAILY 05/30/20 08/20/20 Unknown History tablet,extended release 24 hr multivitamin with minerals 1 tab PO QAM 05/30/20 08/20/20 Unknown History nitroglycerin 0.4 mg sublingual 0.4 mg SUBLINGUAL Q5M PRN 05/30/20 08/20/20 Unknown History tablet oxybutynin chloride 5 mg 5 mg PO BEDTIME 05/30/20 08/20/20 Unknown History tablet,extended release 24 hr ramipril 10 mg capsule 10 mg PO QAM 05/30/20 08/20/20 Unknown History sennosides 8.6 mg tablet 8.6 mg PO BEDTIME PRN 05/30/20 08/20/20 Unknown History albuterol sulfate 90 mcg/actuation 90 mcg INHALATION Q4H PRN 06/12/20 08/20/20 Unknown History aerosol inhaler fluticasone propionate 50 2 spray INTRANASAL DAILY PRN 06/12/20 08/20/20 Unknown History mcg/actuation nasal spray,suspension loratadine 10 mg tablet 10 mg PO QAM 06/12/20 08/20/20 Unknown History semaglutide 1 mg/dose (2 mg/1.5 2 mg SUBCUT Q28D 06/12/20 08/20/20 Unknown History mL) subcutaneous pen injector tramadol 50 mg tablet 50 mg PO TID PRN 06/12/20 08/20/20 Unknown History blood sugar diagnostic #10 ea 06/28/20 09/02/20 Unknown History insulin glargine 100 unit/mL (3 8 unit SUBCUT BEDTIME ml 06/28/20 08/20/20 Unknown History mL) subcutaneous pen lancets 33 gauge #100 ea 06/28/20 09/02/20 Unknown History pen needle, diabetic 32 gauge x #50 ea 06/28/20 09/02/20 Unknown History empagliflozin [Jardiance] 1 tab PO QAM 08/20/20 08/20/20 Unknown History trazodone 1 tab PO BEDTIME PRN 08/20/20 08/20/20 Unknown History Physical Exam Vital Signs and Narrative: Vital Signs: Last Vital Signs Temp 97.4 F 09/24/20 11:28 Pulse 104 H 09/24/20 11:28 Resp 20 09/24/20 15:24 BP 112/78 09/24/20 11:45 Pulse Ox 99 09/24/20 08:00 Body Mass Index 27.3 These shallow open ulcers are bilateral, left larger than right with a fair amount of slough at the base of the wounds. There is no evidence of blistering on this examination. They are partial thickness. I do not see any evidence of periwound erythema or edema to suggest active infection. It does appear that there is active drainage on the bed sheets, patricio in appearance without significant odor. Results Labs CBC and Chem 7: 09/23/20 05:59 09/23/20 05:59 Labs: Laboratory Results - last 24 hr 09/23/20 09/23/20 09/24/20 16:04 19:51 07:36 POC Glucose 97 145 H 124 H 09/24/20 11:30 POC Glucose 92 Assessment and Plan (1) Pressure ulcer of sacral region, stage 2: Start date: 09/24/20 Problem details: sacral PI stage 2 Status: Acute Patient was seen initially and treated with antifungal, improvement noted. When on to develop partial thickness ulceration. Difficult to say if this is directly related to COVID as I have not seen typical blistering with necrotic epidermis at the start of the course. Today, the appearance is that of stage II pressure ulcer over the sacral region. Do not culture 10 exudate. The wound does not appear to be infected. Manage drainage with alginate. Try hyper fix to apply alginate and change daily or every other day depending on output. Consider alternative to hyper fix if skin does not tolerate it. Avoid foam with this much drainage as maceration is anticipated with occlusive dressing.
[2020-09-24 16:25] LABS: Glucose, Whole Blood 69 mg/dL (60-115)
[2020-09-24 20:36] LABS: Glucose, Whole Blood 89 mg/dL (60-115)
[2020-09-24] MEDS: Nystatin Oral Susp 500,000 UNIT/5 ML ORAL.SUSP 500000 UNIT PO (20:55)
[2020-09-25] VITALS (14 sets, daily range): BP systolic 85–112; BP diastolic 53–67; PULSE 98–120; RESP 16–28; TEMP 36.1–36.9; O2SAT 89–99
[2020-09-25] MEDS: Omeprazole 20 MG CAPSULE.DR PO (05:34)
[2020-09-25 07:45] LABS: Glucose, Whole Blood 90 mg/dL (60-115)
[2020-09-25] MEDS: Apixaban 2.5 MG TABLET PO ×2 (09:20→21:24)
[2020-09-25] MEDS: Metoprolol Tartrate 25 MG TABLET PO (09:20)
[2020-09-25] MEDS: Cholecalciferol (Vitamin D3) 25 MCG TABLET 50 MCG PO (09:20)
[2020-09-25] MEDS: guaiFENesin DM 100/10/5 ML 5 ML SYRUP 10 ML PO ×3 (09:21→21:24)
[2020-09-25] MEDS: Nystatin Oral Susp 500,000 UNIT/5 ML ORAL.SUSP 500000 UNIT PO ×4 (09:21→21:24)
[2020-09-25] MEDS: Docusate Sodium 100 MG CAPSULE PO ×2 (09:21→21:24)
[2020-09-25] MEDS: 0.9 % Sodium Chloride Flush 3 ML SYRINGE IVFLUSH ×2 (10:51→18:06)
[2020-09-25] MEDS: Nystatin Powder 15 GM BOTTLE 1 APPL TOPICAL ×2 (10:51→21:47)
--- NOTE | 2020-09-25 10:54 | HO.PM.IMPN ---
Subjective Subjective Date of Service: 09/25/20 Interval History: tired Cardiovascular Cardiovascular: Reports no additional cardiovascular complaints Gastrointestinal Gastrointestinal: Reports no additional gastrointestinal complaints Physical Exam Vital Signs: Vital Signs: Last Vital Signs Temp 98.2 F 09/25/20 07:37 Pulse 114 H 09/25/20 07:37 Resp 20 09/25/20 07:56 BP 112/65 09/25/20 07:38 Pulse Ox 96 09/25/20 07:37 Body Mass Index 27.3 General: no acute distress, ill appearing Resp: rhonchi CVS: S1,S2,RRR GI: soft, non tender, non distended Neuro: motor grossly intact Psych: appropriate affect fungal sacral/perineal dermatitis Objective Data Current Medications Generic Name Dose Route Start Last Admin Trade Name Freq PRN Reason Stop Dose Admin Acetaminophen 650 mg 08/20/20 16:18 08/26/20 22:26 Acetaminophen 325 Mg Tablet PO 650 mg Q6H PRN Administration Pain, Mild (Pain Scale 1-3) Apixaban 2.5 mg 09/22/20 21:00 09/25/20 09:20 Apixaban 2.5 Mg Tablet PO 2.5 mg BID [facility] Administration Docusate Sodium 100 mg 09/23/20 10:45 09/25/20 09:21 Docusate Sodium 100 Mg Capsule PO 100 mg BID [facility] Administration Guaifenesin/Dextromethorphan 10 ml 09/22/20 10:15 09/25/20 09:21 Guaifenesin Dm 100/10/5 Ml 5 Ml Syrup PO 10 ml Q6H [facility] Administration Lactated Ringer's 500 mls @ 100 mls/hr 09/24/20 10:00 09/25/20 05:22 Lr IVCONT Not Given .Q5H [facility] Insulin Glargine 8 unit 09/19/20 09:00 09/25/20 09:41 Insulin Glargine,Hum.Rec.Anlog 100 Unit/Ml 10 Ml Vial SUBCUT Not Given DAILY [facility] Insulin Human Lispro 0 unit 08/20/20 16:30 09/25/20 09:39 Insulin Lispro 100 Unit/Ml 3 Ml Vial SUBCUT Not Given QIDACHS [facility] Protocol Lidocaine HCl 15 ml 09/08/20 14:05 09/23/20 20:41 Lidocaine Hcl Viscous 2 % 15 Ml Solution MUCOUS MEM 15 ml Q3H PRN Administration oral pain Magnesium Hydroxide 30 ml 09/23/20 10:32 09/23/20 11:52 Milk Of Magnesia 30 Ml Oral.Susp PO 30 ml DAILY PRN Administration constipation Metoprolol Tartrate 25 mg 08/29/20 12:55 09/25/20 09:20 Metoprolol Tartrate 25 Mg Tablet PO 25 mg BID [facility] Administration Protocol Morphine Sulfate 1 mg 09/25/20 10:35 Morphine Sulfate 2 Mg/Ml Cartridge IVPUSH Q6H PRN SHORTNESS OF BREATH Nystatin 1 appl 08/27/20 11:00 09/25/20 10:51 Nystatin Powder 15 Gm Bottle TOPICAL 1 appl BID [facility] Administration Protocol Nystatin 500,000 unit 09/23/20 13:00 09/25/20 09:21 Nystatin Oral Susp 500,000 Unit/5 Ml Oral.Susp PO 500,000 unit QID [facility] Administration Protocol Omeprazole 20 mg 09/19/20 06:30 09/25/20 05:34 Omeprazole 20 Mg Capsule.Dr PO 20 mg DAILY@0630 [facility] Administration Ondansetron HCl 4 mg 08/20/20 16:18 Ondansetron Hcl 4 Mg/2 Ml Vial IVPUSH Q8H PRN Nausea and Vomiting Sodium Chloride 3 ml 08/20/20 16:18 09/25/20 10:51 0.9 % Sodium Chloride Flush 3 Ml Syringe IVFLUSH 3 ml QSHIFT [facility] Administration Vitamin D 50 mcg 08/28/20 09:00 09/25/20 09:20 Cholecalciferol (Vitamin D3) 25 Mcg Tablet PO 50 mcg DAILY [facility] Administration Zinc Oxide 1 appl 09/07/20 10:47 09/07/20 14:41 Zinc Oxide (Triple Paste) 56.7 Gm Oint TOPICAL 1 appl QID PRN Administration SKIN BREAKDOWN/BUTTOCKS/PERINE Labs CBC & Chem 7: 09/23/20 05:59 09/23/20 05:59 Microbiology Microbiology Results: Microbiology 08/30/20 16:44 Blood - Venous Blood Culture - Final No growth after 5 days. 08/30/20 16:44 Blood - Venous Blood Culture - Final No growth after 5 days. 08/27/20 13:24 Blood - Venous Blood Culture - Final No growth after 5 days. 08/27/20 13:24 Blood - Venous Blood Culture - Final No growth after 5 days. 08/30/20 16:35 Sputum - Suctioned Gram Stain - Final 08/30/20 16:35 Sputum - Suctioned Sputum Culture - Final 08/20/20 10:59 Blood - Venous Blood Culture - Final No growth after 5 days. 08/20/20 10:55 Blood - Venous Blood Culture - Final No growth after 5 days. Assessment and Plan (1) Acute respiratory failure with hypoxia: Status: Acute (2) DVT, bilateral lower limbs: Status: Acute (3) Hypernatremia: Status: Acute (4) COVID-19: Status: Acute (5) Acute respiratory failure due to COVID-19: Status: Acute (6) HLD (hyperlipidemia): Status: Acute (7) HTN (hypertension): Status: Acute (8) T2DM (type 2 diabetes mellitus): Status: Acute (9) COPD (chronic obstructive pulmonary disease): Status: Acute Assessment and Plan: 79yo F with HTN, DM2, COPD admitted to [facility] for hypoxia due to COVID-19 pneumonia symptom onset 08/11, test positive 08/14, admit 08/20, ICU 08/22 for ARDS patient subsequently transferred to [facility] BLE DVTs diagnosed 08/28 initially on Lovenox changed to low dose eliquis do to hemoptysis, continues with persistent severe hypoxia. acute hypoxic resp failure due to covid pneumonia, did not receive remdesivir since presented out of window for remdesivir Persistent hypoxia, and tachycardia, patient appears weak this morning, but denies shortness of breath or chest pain Continue high-flow oxygen, and gradually wean, rec. change in position, continue cough medicine and supportive care encouraged to take Ensure, On repeat examination later patient appears better, oxygenation is stable will DC 100% non-rebreather continue high-flow oxygen., continue as needed morphine for distress Patient evaluated by director emergency services on 09/22 he recommend to continue current treatment and if oxygenation drops below mid 80s will reconsult director emergency services. overall grave prognosis, but patient and family wishes to continue current management bilateral DVTs s/p therapeutic LMWH 1 mg/kg bid from 08/29/20 thru 09/21 now on low-dose Eliquis due to blood-tinged sputum, total duration 3 months, patient made aware of risk of bleeding with anticoagulation DM2 Blood sugars stable, continue low-dose of Lantus to avoid hypoglycemia and continue Humalog sliding scale. CAD continue beta-blockers and statins, eliwuis HTN bp stable on metoprolol 25 b.i.d. follow blood pressure closely, lisinopril discontinued due to hypotension. No room to increase dose of metoprolol for tachycardia due to low blood pressure. fungal sacral/perineal dermatitis improving continue nystatin + Zn oxide, appreciate Wound Care appreciared FEN NDD2 regular diet, Glucerna tid.
[2020-09-25 11:19] LABS: Glucose, Whole Blood 317 mg/dL (60-115)
[2020-09-25] MEDS: Insulin Glargine,Hum.rec.anlog 100 UNIT/ML 10 ML VIAL 8 UNIT SUBCUT (11:47)
[2020-09-25] MEDS: Insulin Lispro 100 UNIT/ML 3 ML VIAL SUBCUT (11:48)
[2020-09-25] MEDS: Morphine Sulfate 2 MG/ML CARTRIDGE 1 MG IVPUSH (15:09)
[2020-09-25 17:04] LABS: Glucose, Whole Blood 43 mg/dL (60-115)
[2020-09-25 17:30] LABS: Glucose, Whole Blood 78 mg/dL (60-115)
[2020-09-25 18:22] LABS: Glucose Random 91 mg/dL (60-115)
[2020-09-25 20:26] LABS: Glucose, Whole Blood 127 mg/dL (60-115)
[2020-09-26] VITALS (15 sets, daily range): BP systolic 103–139; BP diastolic 56–70; PULSE 92–119; RESP 16–30; TEMP 36.1–37.3; O2SAT 86–98
[2020-09-26] MEDS: 0.9 % Sodium Chloride Flush 3 ML SYRINGE IVFLUSH ×2 (00:48→08:43)
[2020-09-26] MEDS: guaiFENesin DM 100/10/5 ML 5 ML SYRUP 10 ML PO ×4 (04:29→21:23)
[2020-09-26] MEDS: Omeprazole 20 MG CAPSULE.DR PO (06:11)
[2020-09-26 07:25] LABS: Glucose, Whole Blood 148 mg/dL (60-115)
[2020-09-26] MEDS: Apixaban 2.5 MG TABLET PO ×2 (08:31→21:23)
[2020-09-26] MEDS: Cholecalciferol (Vitamin D3) 25 MCG TABLET 50 MCG PO (08:31)
[2020-09-26] MEDS: Metoprolol Tartrate 25 MG TABLET PO ×2 (08:31→21:24)
[2020-09-26] MEDS: Docusate Sodium 100 MG CAPSULE PO ×2 (08:31→21:23)
[2020-09-26] MEDS: Nystatin Oral Susp 500,000 UNIT/5 ML ORAL.SUSP 500000 UNIT PO ×3 (08:31→21:23)
[2020-09-26] MEDS: Nystatin Powder 15 GM BOTTLE 1 APPL TOPICAL ×2 (10:02→22:22)
--- NOTE | 2020-09-26 10:57 | PC.NURSE ---
Pt. A+O, mexican speaking, LS dim bilat, 60L high flow at 100% with NRB, sats in high 90s, occasional productive cough noted, cream-colored sputum, pt. using yankhauer, occasionally incontinent of urine, poor intake for breakfast, resting in bed, alarm on for safety
[2020-09-26 11:35] LABS: Glucose, Whole Blood 165 mg/dL (60-115)
--- NOTE | 2020-09-26 11:57 | HO.PM.IMPN ---
Subjective Subjective Date of Service: 09/26/20 Interval History: unchanged Cardiovascular Cardiovascular: Reports no additional cardiovascular complaints Gastrointestinal Gastrointestinal: Reports no additional gastrointestinal complaints Physical Exam Vital Signs: Vital Signs: Last Vital Signs Temp 97.5 F 09/26/20 11:30 Pulse 106 H 09/26/20 11:30 Resp 22 H 09/26/20 11:40 BP 139/57 L 09/26/20 11:30 Pulse Ox 93 09/26/20 11:30 Body Mass Index 27.3 General: AO X 3, ill appearing Resp: rhonchi CVS: S1,S2,RRR GI: soft, non tender, non distended Neuro: motor grossly intact Psych: appropriate affect Objective Data Current Medications Generic Name Dose Route Start Last Admin Trade Name Freq PRN Reason Stop Dose Admin Acetaminophen 650 mg 08/20/20 16:18 08/26/20 22:26 Acetaminophen 325 Mg Tablet PO 650 mg Q6H PRN Administration Pain, Mild (Pain Scale 1-3) Apixaban 2.5 mg 09/22/20 21:00 09/26/20 08:31 Apixaban 2.5 Mg Tablet PO 2.5 mg BID [facility] Administration Docusate Sodium 100 mg 09/23/20 10:45 09/26/20 08:31 Docusate Sodium 100 Mg Capsule PO 100 mg BID [facility] Administration Guaifenesin/Dextromethorphan 10 ml 09/22/20 10:15 09/26/20 11:47 Guaifenesin Dm 100/10/5 Ml 5 Ml Syrup PO 10 ml Q6H [facility] Administration Insulin Glargine 8 unit 09/19/20 09:00 09/26/20 09:57 Insulin Glargine,Hum.Rec.Anlog 100 Unit/Ml 10 Ml Vial SUBCUT Not Given DAILY [facility] Insulin Human Lispro 0 unit 08/20/20 16:30 09/26/20 11:47 Insulin Lispro 100 Unit/Ml 3 Ml Vial SUBCUT Not Given QIDACHS [facility] Protocol Lidocaine HCl 15 ml 09/08/20 14:05 09/23/20 20:41 Lidocaine Hcl Viscous 2 % 15 Ml Solution MUCOUS MEM 15 ml Q3H PRN Administration oral pain Magnesium Hydroxide 30 ml 09/23/20 10:32 09/23/20 11:52 Milk Of Magnesia 30 Ml Oral.Susp PO 30 ml DAILY PRN Administration constipation Metoprolol Tartrate 25 mg 08/29/20 12:55 09/26/20 08:31 Metoprolol Tartrate 25 Mg Tablet PO 25 mg BID [facility] Administration Protocol Morphine Sulfate 1 mg 09/25/20 10:35 09/25/20 15:09 Morphine Sulfate 2 Mg/Ml Cartridge IVPUSH 1 mg Q6H PRN Administration SHORTNESS OF BREATH Nystatin 1 appl 08/27/20 11:00 09/26/20 10:02 Nystatin Powder 15 Gm Bottle TOPICAL 1 appl BID [facility] Administration Protocol Nystatin 500,000 unit 09/23/20 13:00 09/26/20 08:31 Nystatin Oral Susp 500,000 Unit/5 Ml Oral.Susp PO 500,000 unit QID [facility] Administration Protocol Omeprazole 20 mg 09/19/20 06:30 09/26/20 06:11 Omeprazole 20 Mg Capsule.Dr PO 20 mg DAILY@0630 [facility] Administration Ondansetron HCl 4 mg 08/20/20 16:18 Ondansetron Hcl 4 Mg/2 Ml Vial IVPUSH Q8H PRN Nausea and Vomiting Sodium Chloride 3 ml 08/20/20 16:18 09/26/20 08:43 0.9 % Sodium Chloride Flush 3 Ml Syringe IVFLUSH 3 ml QSHIFT [facility] Administration Vitamin D 50 mcg 08/28/20 09:00 09/26/20 08:31 Cholecalciferol (Vitamin D3) 25 Mcg Tablet PO 50 mcg DAILY [facility] Administration Zinc Oxide 1 appl 09/07/20 10:47 09/07/20 14:41 Zinc Oxide (Triple Paste) 56.7 Gm Oint TOPICAL 1 appl QID PRN Administration SKIN BREAKDOWN/BUTTOCKS/PERINE Labs CBC & Chem 7: 09/23/20 05:59 09/25/20 17:36 Microbiology Microbiology Results: Microbiology 08/30/20 16:44 Blood - Venous Blood Culture - Final No growth after 5 days. 08/30/20 16:44 Blood - Venous Blood Culture - Final No growth after 5 days. 08/27/20 13:24 Blood - Venous Blood Culture - Final No growth after 5 days. 08/27/20 13:24 Blood - Venous Blood Culture - Final No growth after 5 days. 08/30/20 16:35 Sputum - Suctioned Gram Stain - Final 08/30/20 16:35 Sputum - Suctioned Sputum Culture - Final 08/20/20 10:59 Blood - Venous Blood Culture - Final No growth after 5 days. 08/20/20 10:55 Blood - Venous Blood Culture - Final No growth after 5 days. Assessment and Plan (1) Acute respiratory failure with hypoxia: Status: Acute (2) DVT, bilateral lower limbs: Status: Acute (3) Hypernatremia: Status: Acute (4) COVID-19: Status: Acute (5) Acute respiratory failure due to COVID-19: Status: Acute (6) HLD (hyperlipidemia): Status: Acute (7) HTN (hypertension): Status: Acute (8) T2DM (type 2 diabetes mellitus): Status: Acute (9) COPD (chronic obstructive pulmonary disease): Status: Acute Assessment and Plan: 79yo F with HTN, DM2, COPD admitted to [facility] [place] for hypoxia due to COVID-19 pneumonia symptom onset 08/11, test positive 08/14, admit 08/20, ICU 08/22 for ARDS patient subsequently transferred to [facility] [place] BLE DVTs diagnosed 08/28 initially on Lovenox changed to low dose eliquis do to hemoptysis, continues with persistent severe hypoxia. acute hypoxic resp failure due to covid pneumonia, did not receive remdesivir since presented out of window for remdesivir Persistent hypoxia, and tachycardia Continue high-flow oxygen, and gradually wean, rec. change in position, continue cough medicine and supportive care encouraged to take Ensure, dessaturates everytime she is off nrb to eat Patient evaluated by fur trimmer on 09/22 he recommend to continue current treatment and if oxygenation drops below mid 80s will reconsult fur trimmer. overall grave prognosis, but patient and family wishes to continue current management bilateral DVTs s/p therapeutic LMWH 1 mg/kg bid from 08/29/20 thru 09/21 now on low-dose Eliquis due to blood-tinged sputum, total duration 3 months, patient made aware of risk of bleeding with anticoagulation/non full dose AC DM2 Blood sugars stable, continue low-dose of Lantus to avoid hypoglycemia and continue Humalog sliding scale. CAD continue beta-blockers and statins, eliquis HTN bp stable on metoprolol 25 b.i.d. follow blood pressure closely, lisinopril discontinued due to hypotension. No room to increase dose of metoprolol for tachycardia due to low blood pressure. fungal sacral/perineal dermatitis improving continue nystatin + Zn oxide, appreciate Wound Care appreciared FEN NDD2 regular diet, Glucerna tid.
[2020-09-26] MEDS: Morphine Sulfate 2 MG/ML CARTRIDGE 1 MG IVPUSH (11:59)
--- NOTE | 2020-09-26 12:08 | MHC.CLN ---
F/U PO INTAKE 25% CONTINUES DIET RX; GRD/M/S -APPROPRIATE PT RECEIVES ENSURE, PROSOURCE AND BELEM TO INCREASE KCALS AND PROMOTE WOUND HEALING PT IS RECEIVING MAXIMUM PO NUTRITION SUPPORT CONSIDER PPN IF CONDITION DETERIORATES FOLLOWING
--- NOTE | 2020-09-26 13:31 | MHC.CM.PN ---
Patient does require O2 at 60 liters high flow O2 with FIO2 100% NRB mask for COVID +. Discharge plan is pending PT eval when medically stable. CM will continue to follow patient for discharge needs.
[2020-09-26 16:18] LABS: Glucose, Whole Blood 161 mg/dL (60-115)
[2020-09-26 20:01] LABS: Glucose, Whole Blood 157 mg/dL (60-115)
[2020-09-26] MEDS: Insulin Lispro 100 UNIT/ML 3 ML VIAL SUBCUT (21:26)
[2020-09-27] VITALS (14 sets, daily range): BP systolic 103–144; BP diastolic 55–70; PULSE 66–111; RESP 18–32; TEMP 35.9–36.7; O2SAT 90–98
[2020-09-27] MEDS: guaiFENesin DM 100/10/5 ML 5 ML SYRUP 10 ML PO ×4 (04:15→21:38)
[2020-09-27] MEDS: 0.9 % Sodium Chloride Flush 3 ML SYRINGE IVFLUSH ×3 (04:16→15:46)
[2020-09-27] MEDS: Omeprazole 20 MG CAPSULE.DR PO (05:47)
[2020-09-27 07:32] LABS: Glucose, Whole Blood 138 mg/dL (60-115)
[2020-09-27] MEDS: Nystatin Oral Susp 500,000 UNIT/5 ML ORAL.SUSP 500000 UNIT PO ×4 (09:46→21:38)
[2020-09-27] MEDS: Insulin Glargine,Hum.rec.anlog 100 UNIT/ML 10 ML VIAL 8 UNIT SUBCUT (09:46)
[2020-09-27] MEDS: Cholecalciferol (Vitamin D3) 25 MCG TABLET 50 MCG PO (09:47)
[2020-09-27] MEDS: Docusate Sodium 100 MG CAPSULE PO ×2 (09:47→21:39)
[2020-09-27] MEDS: Apixaban 2.5 MG TABLET PO ×2 (09:47→21:39)
[2020-09-27] MEDS: Metoprolol Tartrate 25 MG TABLET PO ×2 (09:47→21:39)
[2020-09-27] MEDS: Nystatin Powder 15 GM BOTTLE 1 APPL TOPICAL ×2 (09:48→21:40)
--- NOTE | 2020-09-27 11:24 | HO.PM.IMPN ---
Subjective Subjective Date of Service: 09/27/20 Interval History: tired, but overall ok Cardiovascular Cardiovascular: Reports no additional cardiovascular complaints Gastrointestinal Gastrointestinal: Reports no additional gastrointestinal complaints Physical Exam Vital Signs: Vital Signs: Last Vital Signs Temp 97.9 F 09/27/20 07:46 Pulse 102 H 09/27/20 09:47 Resp 32 H 09/27/20 07:55 BP 126/62 09/27/20 09:47 Pulse Ox 94 09/27/20 07:46 Body Mass Index 27.3 General: AO X 3, ill appearing Resp: decreased CVS: S1,S2,RRR GI: soft, non tender, non distended Neuro: motor grossly intact Psych: appropriate affect Objective Data Current Medications Generic Name Dose Route Start Last Admin Trade Name Freq PRN Reason Stop Dose Admin Acetaminophen 650 mg 08/20/20 16:18 08/26/20 22:26 Acetaminophen 325 Mg Tablet PO 650 mg Q6H PRN Administration Pain, Mild (Pain Scale 1-3) Apixaban 2.5 mg 09/22/20 21:00 09/27/20 09:47 Apixaban 2.5 Mg Tablet PO 2.5 mg BID [facility]CIE Administration Docusate Sodium 100 mg 09/23/20 10:45 09/27/20 09:47 Docusate Sodium 100 Mg Capsule PO 100 mg BID [facility] Administration Guaifenesin/Dextromethorphan 10 ml 09/22/20 10:15 09/27/20 09:47 Guaifenesin Dm 100/10/5 Ml 5 Ml Syrup PO 10 ml Q6H [facility] Administration Insulin Glargine 8 unit 09/19/20 09:00 09/27/20 09:46 Insulin Glargine,Hum.Rec.Anlog 100 Unit/Ml 10 Ml Vial SUBCUT 8 unit DAILY [facility] Administration Insulin Human Lispro 0 unit 08/20/20 16:30 09/27/20 07:34 Insulin Lispro 100 Unit/Ml 3 Ml Vial SUBCUT Not Given QIDACHS [facility] Protocol Lidocaine HCl 15 ml 09/08/20 14:05 09/23/20 20:41 Lidocaine Hcl Viscous 2 % 15 Ml Solution MUCOUS MEM 15 ml Q3H PRN Administration oral pain Magnesium Hydroxide 30 ml 09/23/20 10:32 09/23/20 11:52 Milk Of Magnesia 30 Ml Oral.Susp PO 30 ml DAILY PRN Administration constipation Metoprolol Tartrate 25 mg 08/29/20 12:55 09/27/20 09:47 Metoprolol Tartrate 25 Mg Tablet PO 25 mg BID [facility] Administration Protocol Morphine Sulfate 1 mg 09/25/20 10:35 09/26/20 11:59 Morphine Sulfate 2 Mg/Ml Cartridge IVPUSH 1 mg Q6H PRN Administration SHORTNESS OF BREATH Nystatin 1 appl 08/27/20 11:00 09/27/20 09:48 Nystatin Powder 15 Gm Bottle TOPICAL 1 appl BID [facility] Administration Protocol Nystatin 500,000 unit 09/23/20 13:00 09/27/20 09:46 Nystatin Oral Susp 500,000 Unit/5 Ml Oral.Susp PO 500,000 unit QID [facility] Administration Protocol Omeprazole 20 mg 09/19/20 06:30 09/27/20 05:47 Omeprazole 20 Mg Capsule.Dr PO 20 mg DAILY@0630 [facility] Administration Ondansetron HCl 4 mg 08/20/20 16:18 Ondansetron Hcl 4 Mg/2 Ml Vial IVPUSH Q8H PRN Nausea and Vomiting Sodium Chloride 3 ml 08/20/20 16:18 09/27/20 09:46 0.9 % Sodium Chloride Flush 3 Ml Syringe IVFLUSH 3 ml QSHIFT [facility] Administration Vitamin D 50 mcg 08/28/20 09:00 09/27/20 09:47 Cholecalciferol (Vitamin D3) 25 Mcg Tablet PO 50 mcg DAILY [facility] Administration Zinc Oxide 1 appl 09/07/20 10:47 09/07/20 14:41 Zinc Oxide (Triple Paste) 56.7 Gm Oint TOPICAL 1 appl QID PRN Administration SKIN BREAKDOWN/BUTTOCKS/PERINE Labs CBC & Chem 7: 09/23/20 05:59 09/25/20 17:36 Microbiology Microbiology Results: Microbiology 08/30/20 16:44 Blood - Venous Blood Culture - Final No growth after 5 days. 08/30/20 16:44 Blood - Venous Blood Culture - Final No growth after 5 days. 08/27/20 13:24 Blood - Venous Blood Culture - Final No growth after 5 days. 08/27/20 13:24 Blood - Venous Blood Culture - Final No growth after 5 days. 08/30/20 16:35 Sputum - Suctioned Gram Stain - Final 08/30/20 16:35 Sputum - Suctioned Sputum Culture - Final 08/20/20 10:59 Blood - Venous Blood Culture - Final No growth after 5 days. 08/20/20 10:55 Blood - Venous Blood Culture - Final No growth after 5 days. Assessment and Plan (1) Acute respiratory failure with hypoxia: Status: Acute (2) DVT, bilateral lower limbs: Status: Acute (3) Hypernatremia: Status: Acute (4) COVID-19: Status: Acute (5) Acute respiratory failure due to COVID-19: Status: Acute (6) HLD (hyperlipidemia): Status: Acute (7) HTN (hypertension): Status: Acute (8) T2DM (type 2 diabetes mellitus): Status: Acute (9) COPD (chronic obstructive pulmonary disease): Status: Acute Assessment and Plan: 79yo F with HTN, DM2, COPD admitted to [facility] [place] for hypoxia due to COVID-19 pneumonia symptom onset 08/11, test positive 08/14, admit 08/20, ICU 08/22 for ARDS patient subsequently transferred to [facility] [place] BLE DVTs diagnosed 08/28 initially on Lovenox changed to low dose eliquis do to hemoptysis, continues with persistent severe hypoxia. acute hypoxic resp failure due to covid pneumonia, did not receive remdesivir since presented out of window for remdesivir Persistent hypoxia, and tachycardia Continue high-flow oxygen, and gradually wean, rec. change in position, continue cough medicine and supportive care encouraged to take Ensure, looks improving, now on high flow without nrb bilateral DVTs s/p therapeutic LMWH 1 mg/kg bid from 08/29/20 thru 09/21 now on low-dose Eliquis due to blood-tinged sputum, total duration 3 months, patient made aware of risk of bleeding with anticoagulation/non full dose AC DM2 continue low-dose of Lantus to avoid hypoglycemia and continue Humalog sliding scale. CAD continue beta-blockers and statins, eliquis HTN bp stable on metoprolol 25 b.i.d. follow blood pressure closely, lisinopril discontinued due to hypotension. No room to increase dose of metoprolol for tachycardia due to low blood pressure. fungal sacral/perineal dermatitis improving continue nystatin + Zn oxide, appreciate Wound Care appreciared FEN NDD2 regular diet, Glucerna tid.
[2020-09-27 11:26] LABS: Glucose, Whole Blood 255 mg/dL (60-115)
[2020-09-27] MEDS: Insulin Lispro 100 UNIT/ML 3 ML VIAL SUBCUT ×2 (11:51→16:38)
[2020-09-27 16:16] LABS: Glucose, Whole Blood 219 mg/dL (60-115)
[2020-09-27 19:33] LABS: Glucose, Whole Blood 77 mg/dL (60-115)
[2020-09-27 20:50] LABS: Glucose, Whole Blood 162 mg/dL (60-115)
[2020-09-28] VITALS (15 sets, daily range): BP systolic 96–111; BP diastolic 51–65; PULSE 97–111; RESP 18–26; TEMP 35.9–36.6; O2SAT 90–100
[2020-09-28] MEDS: 0.9 % Sodium Chloride Flush 3 ML SYRINGE IVFLUSH ×4 (01:12→23:32)
[2020-09-28] MEDS: guaiFENesin DM 100/10/5 ML 5 ML SYRUP 10 ML PO ×4 (03:56→22:48)
[2020-09-28] MEDS: Omeprazole 20 MG CAPSULE.DR PO (05:28)
[2020-09-28 05:58] LABS: MANUAL DIFF FLAG NO
[2020-09-28 06:02] LABS: Basophils Absolute Auto 0.1 X10*3/uL (0.0-0.2); Basophils Percent Auto 0.7 % (0-2); Eosinophils Absolute Auto 0.2 X10*3/uL (0.0-0.4); Eosinophils Percent Auto 1.6 % (0-4); Hematocrit 32.8 % (37-47); Hemoglobin 10.1 g/dl (12.0-16.0); Imm Gran Abs Auto 0.23 X10*3/uL (0.00-0.03); Imm Gran Pct Auto 2.3 % (0.0-0.4); Lymphocytes Absolute Auto 3.7 X10*3/uL (1.2-4.9); Lymphocytes Percent Auto 36.7 % (20-40); Mean Corpuscular HGB Conc 30.8 g/dl (31.0-35.0); Mean Corpuscular Hemoglobin 25.6 pg (27.0-33.0); Mean Platelet Volume 8.7 fL (9.4-12.3); Monocytes Absolute Auto 0.4 X10*3/uL (0.1-1.2); Monocytes Percent Auto 3.8 % (2-11); NRBC Pct Auto 0.2 /100WBC (0.0-0.2); Neutrophils Absolute Auto 5.6 X10*3/uL (2.0-8.3); Neutrophils Percent Auto 54.9 % (45-73); Platelet Count 389 X10*3/uL (160-400); Red Blood Count 3.95 X10*6/uL (4.20-5.50); Red Cell Distribution Width 14.3 % (11.0-16.0); White Blood Count 10.1 X10*3/uL (4.8-10.8)
[2020-09-28 06:42] LABS: Anion Gap 11 (12-20); Blood Urea Nitrogen 9 mg/dL (9-16); Carbon Dioxide 38 mmol/L (22-29); Chloride 95 mmol/L (96-108); Creatinine Clr Calc Pharmacy 84.7; Estimated Glomerular Filt Rate > 60; Glucose Fasting 137 mg/dL (60-99); Potassium 4.1 mmol/L (3.3-5.1); Sodium 140 mmol/L (135-145)
[2020-09-28 07:33] LABS: Glucose, Whole Blood 130 mg/dL (60-115)
[2020-09-28] MEDS: Cholecalciferol (Vitamin D3) 25 MCG TABLET 50 MCG PO (09:19)
[2020-09-28] MEDS: Nystatin Oral Susp 500,000 UNIT/5 ML ORAL.SUSP 500000 UNIT PO ×4 (09:19→20:11)
[2020-09-28] MEDS: Docusate Sodium 100 MG CAPSULE PO ×2 (09:20→20:11)
[2020-09-28] MEDS: Apixaban 2.5 MG TABLET PO ×2 (09:20→20:12)
[2020-09-28] MEDS: Insulin Glargine,Hum.rec.anlog 100 UNIT/ML 10 ML VIAL 8 UNIT SUBCUT (09:20)
[2020-09-28] MEDS: Nystatin Powder 15 GM BOTTLE 1 APPL TOPICAL ×2 (09:33→20:23)
[2020-09-28] MEDS: Metoprolol Tartrate 25 MG TABLET PO ×2 (09:46→20:12)
--- NOTE | 2020-09-28 11:04 | MHC.CM.PN ---
DP Female 79 DX Covid+ DP TBD by the Pts recovery from Covid-19. PT eval will be ordered when Pt improves. Pt currently on a NRB @ 100%. CM will follow.
[2020-09-28 11:24] LABS: Glucose, Whole Blood 228 mg/dL (60-115)
[2020-09-28] MEDS: Insulin Lispro 100 UNIT/ML 3 ML VIAL SUBCUT ×2 (12:04→16:33)
--- NOTE | 2020-09-28 12:05 | MHC.CLN ---
F/U PO INTAKE 25% CONTINUES DIET RX; GRD/M/S -APPROPRIATE PT RECEIVES ENSURE BID, PROSOURCE BID AND BELEM TO INCREASE KCALS AND SUPPORT WOUND HEALING PROVIDES [id number] (80% EST KCALS NEEDS), 75G PROTEIN (109% EST PROTEIN NEEDS) PT IS RECEIVING MAXIMUM PO NUTRITION SUPPORT CONSIDER PPN IF CONDITION DETERIORATES FOLLOWING
[2020-09-28 16:20] LABS: Glucose, Whole Blood 226 mg/dL (60-115)
[2020-09-28] MEDS: Acetaminophen 325 MG TABLET 650 MG PO (20:12)
[2020-09-28 20:47] LABS: Glucose, Whole Blood 109 mg/dL (60-115)
[2020-09-28] MEDS: Zinc Oxide (Triple Paste) 56.7 GM OINT 1 APPL TOPICAL (23:07)
[2020-09-29] VITALS (13 sets, daily range): BP systolic 104–150; BP diastolic 56–74; PULSE 100–126; RESP 18–28; TEMP 36.3–36.7; O2SAT 90–99
[2020-09-29] MEDS: Omeprazole 20 MG CAPSULE.DR PO (06:20)
[2020-09-29 07:44] LABS: Glucose, Whole Blood 106 mg/dL (60-115)
[2020-09-29] MEDS: guaiFENesin DM 100/10/5 ML 5 ML SYRUP 10 ML PO ×2 (08:05→15:43)
[2020-09-29] MEDS: Nystatin Oral Susp 500,000 UNIT/5 ML ORAL.SUSP 500000 UNIT PO ×3 (08:05→20:04)
[2020-09-29] MEDS: 0.9 % Sodium Chloride Flush 3 ML SYRINGE IVFLUSH ×3 (08:06→23:52)
[2020-09-29] MEDS: Metoprolol Tartrate 25 MG TABLET PO ×2 (08:06→20:04)
[2020-09-29] MEDS: Apixaban 2.5 MG TABLET PO ×2 (08:07→20:04)
[2020-09-29] MEDS: Docusate Sodium 100 MG CAPSULE PO ×2 (08:07→20:04)
[2020-09-29] MEDS: Cholecalciferol (Vitamin D3) 25 MCG TABLET 50 MCG PO (08:07)
[2020-09-29] MEDS: Nystatin Powder 15 GM BOTTLE 1 APPL TOPICAL ×3 (08:28→22:54)
[2020-09-29 11:18] LABS: Glucose, Whole Blood 160 mg/dL (60-115)
--- NOTE | 2020-09-29 11:36 | HO.PM.IMPN ---
Subjective Subjective Date of Service: 09/29/20 Interval History: improving Cardiovascular Cardiovascular: Reports no additional cardiovascular complaints Genitourinary Genitourinary: Reports no additional female genitourinary complaints Physical Exam Vital Signs: Vital Signs: Last Vital Signs Temp 97.6 F 09/29/20 07:51 Pulse 106 H 09/29/20 08:06 Resp 22 H 09/29/20 11:26 BP 115/57 L 09/29/20 08:06 Pulse Ox 99 09/29/20 07:51 Body Mass Index 27.3 General: Alert, no acute distress Resp: rhonchi CVS: S1,S2,RRR GI: soft, non tender, non distended Neuro: motor grossly intact Psych: appropriate affect Objective Data Current Medications Generic Name Dose Route Start Last Admin Trade Name Freq PRN Reason Stop Dose Admin Acetaminophen 650 mg 08/20/20 16:18 09/28/20 20:12 Acetaminophen 325 Mg Tablet PO 650 mg Q6H PRN Administration Pain, Mild (Pain Scale 1-3) Apixaban 2.5 mg 09/22/20 21:00 09/29/20 08:07 Apixaban 2.5 Mg Tablet PO 2.5 mg BID [facility]CIE Administration Docusate Sodium 100 mg 09/23/20 10:45 09/29/20 08:07 Docusate Sodium 100 Mg Capsule PO 100 mg BID [facility] Administration Guaifenesin/Dextromethorphan 10 ml 09/22/20 10:15 09/29/20 08:05 Guaifenesin Dm 100/10/5 Ml 5 Ml Syrup PO 10 ml Q6H [facility] Administration Insulin Glargine 8 unit 09/19/20 09:00 09/28/20 09:20 Insulin Glargine,Hum.Rec.Anlog 100 Unit/Ml 10 Ml Vial SUBCUT 8 unit DAILY [facility] Administration Insulin Human Lispro 0 unit 08/20/20 16:30 09/29/20 07:46 Insulin Lispro 100 Unit/Ml 3 Ml Vial SUBCUT Not Given QIDACHS [facility] Protocol Lidocaine HCl 15 ml 09/08/20 14:05 09/23/20 20:41 Lidocaine Hcl Viscous 2 % 15 Ml Solution MUCOUS MEM 15 ml Q3H PRN Administration oral pain Magnesium Hydroxide 30 ml 09/23/20 10:32 09/23/20 11:52 Milk Of Magnesia 30 Ml Oral.Susp PO 30 ml DAILY PRN Administration constipation Metoprolol Tartrate 25 mg 08/29/20 12:55 09/29/20 08:06 Metoprolol Tartrate 25 Mg Tablet PO 25 mg BID [facility] Administration Protocol Morphine Sulfate 1 mg 09/25/20 10:35 09/26/20 11:59 Morphine Sulfate 2 Mg/Ml Cartridge IVPUSH 1 mg Q6H PRN Administration SHORTNESS OF BREATH Nystatin 1 appl 08/27/20 11:00 09/29/20 08:28 Nystatin Powder 15 Gm Bottle TOPICAL 1 appl BID [facility] Administration Protocol Nystatin 500,000 unit 09/23/20 13:00 09/29/20 08:05 Nystatin Oral Susp 500,000 Unit/5 Ml Oral.Susp PO 500,000 unit QID [facility] Administration Protocol Omeprazole 20 mg 09/19/20 06:30 09/29/20 06:20 Omeprazole 20 Mg Capsule.Dr PO 20 mg DAILY@0630 [facility] Administration Ondansetron HCl 4 mg 08/20/20 16:18 Ondansetron Hcl 4 Mg/2 Ml Vial IVPUSH Q8H PRN Nausea and Vomiting Sodium Chloride 3 ml 08/20/20 16:18 09/29/20 08:06 0.9 % Sodium Chloride Flush 3 Ml Syringe IVFLUSH 3 ml QSHIFT [facility] Administration Vitamin D 50 mcg 08/28/20 09:00 09/29/20 08:07 Cholecalciferol (Vitamin D3) 25 Mcg Tablet PO 50 mcg DAILY [facility] Administration Zinc Oxide 1 appl 09/07/20 10:47 09/28/20 23:07 Zinc Oxide (Triple Paste) 56.7 Gm Oint TOPICAL 1 appl QID PRN Administration SKIN BREAKDOWN/BUTTOCKS/PERINE Labs CBC & Chem 7: 09/28/20 05:33 09/28/20 05:34 Microbiology Microbiology Results: Microbiology 08/30/20 16:44 Blood - Venous Blood Culture - Final No growth after 5 days. 08/30/20 16:44 Blood - Venous Blood Culture - Final No growth after 5 days. 08/27/20 13:24 Blood - Venous Blood Culture - Final No growth after 5 days. 08/27/20 13:24 Blood - Venous Blood Culture - Final No growth after 5 days. 08/30/20 16:35 Sputum - Suctioned Gram Stain - Final 08/30/20 16:35 Sputum - Suctioned Sputum Culture - Final 08/20/20 10:59 Blood - Venous Blood Culture - Final No growth after 5 days. 08/20/20 10:55 Blood - Venous Blood Culture - Final No growth after 5 days. Assessment and Plan (1) Acute respiratory failure with hypoxia: Status: Acute (2) DVT, bilateral lower limbs: Status: Acute (3) Hypernatremia: Status: Acute (4) COVID-19: Status: Acute (5) Acute respiratory failure due to COVID-19: Status: Acute (6) HLD (hyperlipidemia): Status: Acute (7) HTN (hypertension): Status: Acute (8) T2DM (type 2 diabetes mellitus): Status: Acute (9) COPD (chronic obstructive pulmonary disease): Status: Acute Assessment and Plan: 79yo F with HTN, DM2, COPD admitted to [facility] [place] for hypoxia due to COVID-19 pneumonia symptom onset 08/11, test positive 08/14, admit 08/20, ICU 08/22 for ARDS patient subsequently transferred to [facility] [place] BLE DVTs diagnosed 08/28 initially on Lovenox changed to low dose eliquis do to hemoptysis, continues with persistent severe hypoxia. acute hypoxic resp failure due to covid pneumonia, did not receive remdesivir since presented out of window for remdesivir Persistent hypoxia, and tachycardia Continue high-flow oxygen, and gradually wean, rec. change in position, continue cough medicine and supportive care encouraged to take Ensure, looks improving, now on high flow without nrb and continues to wean down on high flow settings bilateral DVTs s/p therapeutic LMWH 1 mg/kg bid from 08/29/20 thru 09/21 now on low-dose Eliquis due to blood-tinged sputum, total duration 3 months, patient made aware of risk of bleeding with anticoagulation/non full dose AC DM2 continue low-dose of Lantus to avoid hypoglycemia and continue Humalog sliding scale. CAD continue beta-blockers and statins, eliquis HTN bp stable on metoprolol 25 b.i.d. follow blood pressure closely, lisinopril discontinued due to hypotension. No room to increase dose of metoprolol for tachycardia due to low blood pressure. fungal sacral/perineal dermatitis improving continue nystatin + Zn oxide, appreciate Wound Care appreciared FEN NDD2 regular diet, Glucerna tid.
[2020-09-29] MEDS: Insulin Glargine,Hum.rec.anlog 100 UNIT/ML 10 ML VIAL 8 UNIT SUBCUT (11:45)
[2020-09-29] MEDS: Insulin Lispro 100 UNIT/ML 3 ML VIAL SUBCUT ×2 (11:46→17:01)
[2020-09-29 16:57] LABS: Glucose, Whole Blood 210 mg/dL (60-115)
--- NOTE | 2020-09-29 17:19 | PC.NURSE ---
LOW O2 SAT DOWN TO MID 70'S NOTED ON SOCIAL SERVICE AGENCY DIRECTOR. PT DRINKING BROTH AT THE TIME FOR DINNER. SOME INCREASED WOB BUT NO DISTRESS NOTED. REPOSITIONED,MOUTH SUCTION,PLACED 100% NONREBREATHER BACK ON PATIENT OVER HIGH FLOW FOR SEVERAL MINUTES UNTIL SAO2 READING UP TO 90%. REMOVED BUT THEN AGAIN NOTED TO DESAT WITHIN A FEW SECONDS. 100% NONREBREATHER PLACED BACK ON PATIENT. STAYED WITH PATIENT AND INSTRCUTED C&DB SAO2 SLOWLY BACK UP TO 89-91%. RESPIRATORY AND HOSPITALIST NOTIFIED.
[2020-09-29 20:54] LABS: Glucose, Whole Blood 87 mg/dL (60-115)
[2020-09-30] VITALS (16 sets, daily range): BP systolic 99–115; BP diastolic 50–63; PULSE 91–118; RESP 18–36; TEMP 36.4–37.1; O2SAT 91–96
[2020-09-30] MEDS: guaiFENesin DM 100/10/5 ML 5 ML SYRUP 10 ML PO ×4 (00:04→22:28)
[2020-09-30] MEDS: Omeprazole 20 MG CAPSULE.DR PO (05:30)
[2020-09-30 07:38] LABS: Glucose, Whole Blood 95 mg/dL (60-115)
[2020-09-30] MEDS: Cholecalciferol (Vitamin D3) 25 MCG TABLET 50 MCG PO (08:22)
[2020-09-30] MEDS: Metoprolol Tartrate 25 MG TABLET PO ×2 (08:23→22:28)
[2020-09-30] MEDS: 0.9 % Sodium Chloride Flush 3 ML SYRINGE IVFLUSH ×3 (08:23→22:29)
[2020-09-30] MEDS: Docusate Sodium 100 MG CAPSULE PO ×2 (08:23→22:28)
[2020-09-30] MEDS: Nystatin Oral Susp 500,000 UNIT/5 ML ORAL.SUSP 500000 UNIT PO ×4 (08:23→22:28)
[2020-09-30] MEDS: Apixaban 2.5 MG TABLET PO ×2 (08:23→22:28)
[2020-09-30] MEDS: Nystatin Powder 15 GM BOTTLE 1 APPL TOPICAL ×2 (08:40→22:59)
--- NOTE | 2020-09-30 11:08 | HO.PM.IMPN ---
Subjective Subjective Date of Service: 09/30/20 Interval History: sob Cardiovascular Cardiovascular: Reports no additional cardiovascular complaints Genitourinary Genitourinary: Reports no additional female genitourinary complaints Physical Exam Vital Signs: Vital Signs: Last Vital Signs Temp 97.5 F 09/30/20 07:35 Pulse 106 H 09/30/20 08:23 Resp 20 09/30/20 07:35 BP 115/56 L 09/30/20 08:23 Pulse Ox 96 09/30/20 07:35 Body Mass Index 27.3 General: AO X 3, no acute distress, ill appearing Resp: diminished CVS: S1,S2,RRR GI: soft, non tender, non distended Neuro: motor grossly intact Psych: appropriate affect Objective Data Current Medications Generic Name Dose Route Start Last Admin Trade Name Freq PRN Reason Stop Dose Admin Acetaminophen 650 mg 08/20/20 16:18 09/28/20 20:12 Acetaminophen 325 Mg Tablet PO 650 mg Q6H PRN Administration Pain, Mild (Pain Scale 1-3) Apixaban 2.5 mg 09/22/20 21:00 09/30/20 08:23 Apixaban 2.5 Mg Tablet PO 2.5 mg BID [facility] Administration Docusate Sodium 100 mg 09/23/20 10:45 09/30/20 08:23 Docusate Sodium 100 Mg Capsule PO 100 mg BID [facility] Administration Guaifenesin/Dextromethorphan 10 ml 09/22/20 10:15 09/30/20 05:21 Guaifenesin Dm 100/10/5 Ml 5 Ml Syrup PO 10 ml Q6H [facility] Administration Insulin Glargine 8 unit 09/19/20 09:00 09/29/20 11:45 Insulin Glargine,Hum.Rec.Anlog 100 Unit/Ml 10 Ml Vial SUBCUT 8 unit DAILY [facility] Administration Insulin Human Lispro 0 unit 08/20/20 16:30 09/30/20 08:20 Insulin Lispro 100 Unit/Ml 3 Ml Vial SUBCUT Not Given QIDACHS [facility] Protocol Lidocaine HCl 15 ml 09/08/20 14:05 09/23/20 20:41 Lidocaine Hcl Viscous 2 % 15 Ml Solution MUCOUS MEM 15 ml Q3H PRN Administration oral pain Magnesium Hydroxide 30 ml 09/23/20 10:32 09/23/20 11:52 Milk Of Magnesia 30 Ml Oral.Susp PO 30 ml DAILY PRN Administration constipation Metoprolol Tartrate 25 mg 08/29/20 12:55 09/30/20 08:23 Metoprolol Tartrate 25 Mg Tablet PO 25 mg BID [facility] Administration Protocol Morphine Sulfate 1 mg 09/25/20 10:35 09/26/20 11:59 Morphine Sulfate 2 Mg/Ml Cartridge IVPUSH 1 mg Q6H PRN Administration SHORTNESS OF BREATH Nystatin 1 appl 08/27/20 11:00 09/30/20 08:40 Nystatin Powder 15 Gm Bottle TOPICAL 1 appl BID [facility] Administration Protocol Nystatin 500,000 unit 09/23/20 13:00 09/30/20 08:23 Nystatin Oral Susp 500,000 Unit/5 Ml Oral.Susp PO 500,000 unit QID [facility] Administration Protocol Omeprazole 20 mg 09/19/20 06:30 09/30/20 05:30 Omeprazole 20 Mg Capsule.Dr PO 20 mg DAILY@0630 [facility] Administration Ondansetron HCl 4 mg 08/20/20 16:18 Ondansetron Hcl 4 Mg/2 Ml Vial IVPUSH Q8H PRN Nausea and Vomiting Sodium Chloride 3 ml 08/20/20 16:18 09/30/20 08:23 0.9 % Sodium Chloride Flush 3 Ml Syringe IVFLUSH 3 ml QSHIFT [facility] Administration Vitamin D 50 mcg 08/28/20 09:00 09/30/20 08:22 Cholecalciferol (Vitamin D3) 25 Mcg Tablet PO 50 mcg DAILY [facility] Administration Zinc Oxide 1 appl 09/07/20 10:47 09/28/20 23:07 Zinc Oxide (Triple Paste) 56.7 Gm Oint TOPICAL 1 appl QID PRN Administration SKIN BREAKDOWN/BUTTOCKS/PERINE Labs CBC & Chem 7: 09/28/20 05:33 09/28/20 05:34 Microbiology Microbiology Results: Microbiology 08/30/20 16:44 Blood - Venous Blood Culture - Final No growth after 5 days. 08/30/20 16:44 Blood - Venous Blood Culture - Final No growth after 5 days. 08/27/20 13:24 Blood - Venous Blood Culture - Final No growth after 5 days. 08/27/20 13:24 Blood - Venous Blood Culture - Final No growth after 5 days. 08/30/20 16:35 Sputum - Suctioned Gram Stain - Final 08/30/20 16:35 Sputum - Suctioned Sputum Culture - Final 08/20/20 10:59 Blood - Venous Blood Culture - Final No growth after 5 days. 08/20/20 10:55 Blood - Venous Blood Culture - Final No growth after 5 days. Assessment and Plan (1) Acute respiratory failure with hypoxia: Status: Acute (2) DVT, bilateral lower limbs: Status: Acute (3) Hypernatremia: Status: Acute (4) COVID-19: Status: Acute (5) Acute respiratory failure due to COVID-19: Status: Acute (6) HLD (hyperlipidemia): Status: Acute (7) HTN (hypertension): Status: Acute (8) T2DM (type 2 diabetes mellitus): Status: Acute (9) COPD (chronic obstructive pulmonary disease): Status: Acute Assessment and Plan: 79yo F with HTN, DM2, COPD [place] [facility] [place] COVID-19 pneumonia symptom onset 08/11, test positive 08/14, admit 08/20, ICU 08/22 for ARDS patient subsequently transferred [place] [facility] [place] DVTs diagnosed 08/28 initially on Lovenox changed to low dose eliquis do to hemoptysis, continues with persistent severe hypoxia. acute hypoxic resp failure due to covid pneumonia, did not receive remdesivir since presented out of window for remdesivir Persistent hypoxia, and tachycardia Continue high-flow oxygen, and gradually wean, rec. change in position, continue cough medicine and supportive care encouraged to take Ensure, was doing well for several days, but yesterday needed high flow and nrb again, will try to wean back down. bilateral DVTs s/p therapeutic LMWH 1 mg/kg bid from 08/29/20 thru 09/21 now on low-dose Eliquis due to blood-tinged sputum, total duration 3 months, patient made aware of risk of bleeding with anticoagulation/non full dose AC DM2 continue low-dose of Lantus to avoid hypoglycemia and continue Humalog sliding scale. CAD continue beta-blockers and statins, eliquis HTN bp stable on metoprolol 25 b.i.d. follow blood pressure closely, lisinopril discontinued due to hypotension. No room to increase dose of metoprolol for tachycardia due to low blood pressure. fungal sacral/perineal dermatitis improving continue nystatin + Zn oxide, appreciate Wound Care appreciared FEN NDD2 regular diet, Glucerna tid.
[2020-09-30 11:15] LABS: Glucose, Whole Blood 164 mg/dL (60-115)
[2020-09-30] MEDS: Morphine Sulfate 2 MG/ML CARTRIDGE 1 MG IVPUSH (14:37)
[2020-09-30 16:23] LABS: Glucose, Whole Blood 244 mg/dL (60-115)
[2020-09-30] MEDS: Insulin Lispro 100 UNIT/ML 3 ML VIAL SUBCUT ×2 (16:57→22:29)
[2020-09-30 20:41] LABS: Glucose, Whole Blood 187 mg/dL (60-115)
[2020-10-01] VITALS (13 sets, daily range): BP systolic 97–115; BP diastolic 53–64; PULSE 88–116; RESP 18–22; TEMP 36.1–36.6; O2SAT 83–97
[2020-10-01] MEDS: guaiFENesin DM 100/10/5 ML 5 ML SYRUP 10 ML PO ×4 (06:08→19:08)
[2020-10-01] MEDS: Omeprazole 20 MG CAPSULE.DR PO (06:08)
[2020-10-01 07:34] LABS: Glucose, Whole Blood 176 mg/dL (60-115)
[2020-10-01] MEDS: Insulin Lispro 100 UNIT/ML 3 ML VIAL SUBCUT ×3 (08:47→19:08)
[2020-10-01] MEDS: Insulin Glargine,Hum.rec.anlog 100 UNIT/ML 10 ML VIAL 8 UNIT SUBCUT (08:47)
[2020-10-01] MEDS: Nystatin Oral Susp 500,000 UNIT/5 ML ORAL.SUSP 500000 UNIT PO ×4 (08:48→19:11)
[2020-10-01] MEDS: 0.9 % Sodium Chloride Flush 3 ML SYRINGE IVFLUSH ×3 (08:48→19:15)
[2020-10-01] MEDS: Cholecalciferol (Vitamin D3) 25 MCG TABLET 50 MCG PO (08:48)
[2020-10-01] MEDS: Docusate Sodium 100 MG CAPSULE PO ×2 (08:48→19:11)
[2020-10-01] MEDS: Apixaban 2.5 MG TABLET PO ×2 (08:48→19:11)
[2020-10-01] MEDS: Metoprolol Tartrate 25 MG TABLET PO ×2 (08:48→19:11)
--- NOTE | 2020-10-01 10:40 | HO.PM.IMPN ---
Subjective Subjective Date of Service: 10/01/20 Interval History: sob Cardiovascular Cardiovascular: Reports no additional cardiovascular complaints Genitourinary Genitourinary: Reports no additional female genitourinary complaints Physical Exam Vital Signs: Vital Signs: Last Vital Signs Temp 97.4 F 10/01/20 08:00 Pulse 116 H 10/01/20 08:00 Resp 20 10/01/20 08:00 BP 111/62 10/01/20 08:00 Pulse Ox 96 10/01/20 08:00 Body Mass Index 27.3 General: AO X 3, ill appearing Resp: rhonchi CVS: S1,S2,RRR GI: soft, non tender, non distended Neuro: motor grossly intact Psych: appropriate affect Objective Data Current Medications Generic Name Dose Route Start Last Admin Trade Name Freq PRN Reason Stop Dose Admin Acetaminophen 650 mg 08/20/20 16:18 09/28/20 20:12 Acetaminophen 325 Mg Tablet PO 650 mg Q6H PRN Administration Pain, Mild (Pain Scale 1-3) Apixaban 2.5 mg 09/22/20 21:00 10/01/20 08:48 Apixaban 2.5 Mg Tablet PO 2.5 mg BID LUCIE Administration Docusate Sodium 100 mg 09/23/20 10:45 10/01/20 08:48 Docusate Sodium 100 Mg Capsule PO 100 mg BID [facility]CIE Administration Guaifenesin/Dextromethorphan 10 ml 09/22/20 10:15 10/01/20 08:48 Guaifenesin Dm 100/10/5 Ml 5 Ml Syrup PO 10 ml Q6H [facility] Administration Insulin Glargine 8 unit 09/19/20 09:00 10/01/20 08:47 Insulin Glargine,Hum.Rec.Anlog 100 Unit/Ml 10 Ml Vial SUBCUT 8 unit DAILY [facility] Administration Insulin Human Lispro 0 unit 08/20/20 16:30 10/01/20 08:47 Insulin Lispro 100 Unit/Ml 3 Ml Vial SUBCUT 2 unit QIDACHS [facility] Administration Protocol Lidocaine HCl 15 ml 09/08/20 14:05 09/23/20 20:41 Lidocaine Hcl Viscous 2 % 15 Ml Solution MUCOUS MEM 15 ml Q3H PRN Administration oral pain Magnesium Hydroxide 30 ml 09/23/20 10:32 09/23/20 11:52 Milk Of Magnesia 30 Ml Oral.Susp PO 30 ml DAILY PRN Administration constipation Metoprolol Tartrate 25 mg 08/29/20 12:55 10/01/20 08:48 Metoprolol Tartrate 25 Mg Tablet PO 25 mg BID [facility] Administration Protocol Morphine Sulfate 1 mg 09/25/20 10:35 09/30/20 14:37 Morphine Sulfate 2 Mg/Ml Cartridge IVPUSH 1 mg Q6H PRN Administration SHORTNESS OF BREATH Nystatin 1 appl 08/27/20 11:00 09/30/20 22:59 Nystatin Powder 15 Gm Bottle TOPICAL 1 appl BID [facility] Administration Protocol Nystatin 500,000 unit 09/23/20 13:00 10/01/20 08:48 Nystatin Oral Susp 500,000 Unit/5 Ml Oral.Susp PO 500,000 unit QID [facility] Administration Protocol Omeprazole 20 mg 09/19/20 06:30 10/01/20 06:08 Omeprazole 20 Mg Capsule.Dr PO 20 mg DAILY@0630 [facility] Administration Ondansetron HCl 4 mg 08/20/20 16:18 Ondansetron Hcl 4 Mg/2 Ml Vial IVPUSH Q8H PRN Nausea and Vomiting Sodium Chloride 3 ml 08/20/20 16:18 10/01/20 08:48 0.9 % Sodium Chloride Flush 3 Ml Syringe IVFLUSH 3 ml QSHIFT [facility] Administration Vitamin D 50 mcg 08/28/20 09:00 10/01/20 08:48 Cholecalciferol (Vitamin D3) 25 Mcg Tablet PO 50 mcg DAILY [facility] Administration Zinc Oxide 1 appl 09/07/20 10:47 09/28/20 23:07 Zinc Oxide (Triple Paste) 56.7 Gm Oint TOPICAL 1 appl QID PRN Administration SKIN BREAKDOWN/BUTTOCKS/PERINE Labs CBC & Chem 7: 09/28/20 05:33 09/28/20 05:34 Microbiology Microbiology Results: Microbiology 08/30/20 16:44 Blood - Venous Blood Culture - Final No growth after 5 days. 08/30/20 16:44 Blood - Venous Blood Culture - Final No growth after 5 days. 08/27/20 13:24 Blood - Venous Blood Culture - Final No growth after 5 days. 08/27/20 13:24 Blood - Venous Blood Culture - Final No growth after 5 days. 08/30/20 16:35 Sputum - Suctioned Gram Stain - Final 08/30/20 16:35 Sputum - Suctioned Sputum Culture - Final 08/20/20 10:59 Blood - Venous Blood Culture - Final No growth after 5 days. 08/20/20 10:55 Blood - Venous Blood Culture - Final No growth after 5 days. Assessment and Plan (1) Acute respiratory failure with hypoxia: Status: Acute (2) DVT, bilateral lower limbs: Status: Acute (3) Hypernatremia: Status: Acute (4) COVID-19: Status: Acute (5) Acute respiratory failure due to COVID-19: Status: Acute (6) HLD (hyperlipidemia): Status: Acute (7) HTN (hypertension): Status: Acute (8) T2DM (type 2 diabetes mellitus): Status: Acute (9) COPD (chronic obstructive pulmonary disease): Status: Acute Assessment and Plan: 79yo F with HTN, DM2, COPD admitted to [facility] [place] for hypoxia due to COVID-19 pneumonia symptom onset 08/11, test positive 08/14, admit 08/20, ICU 08/22 for ARDS patient subsequently transferred to [facility] [place] BLE DVTs diagnosed 08/28 initially on Lovenox changed to low dose eliquis do to hemoptysis, continues with persistent severe hypoxia. acute hypoxic resp failure due to covid pneumonia, did not receive remdesivir since presented out of window for remdesivir Persistent hypoxia, and tachycardia Continue high-flow oxygen, and gradually wean, rec. change in position, continue cough medicine and supportive care encouraged to take Ensure, was doing well for several days, but on 09/29 needed high flow and nrb again, seems a bit better today, will try to wean back down bilateral DVTs s/p therapeutic LMWH 1 mg/kg bid from 08/29/20 thru 09/21 now on low-dose Eliquis due to blood-tinged sputum, total duration 3 months, patient made aware of risk of bleeding with anticoagulation/non full dose AC DM2 continue low-dose of Lantus to avoid hypoglycemia and continue Humalog sliding scale. CAD continue beta-blockers and statins, eliquis HTN bp stable on metoprolol 25 b.i.d. follow blood pressure closely, lisinopril discontinued due to hypotension. No room to increase dose of metoprolol for tachycardia due to low blood pressure. fungal sacral/perineal dermatitis improving continue nystatin + Zn oxide, appreciate Wound Care appreciared FEN NDD2 regular diet, Glucerna tid.
[2020-10-01 11:44] LABS: Glucose, Whole Blood 173 mg/dL (60-115)
[2020-10-01] MEDS: Nystatin Powder 15 GM BOTTLE 1 APPL TOPICAL ×2 (12:11→19:11)
--- NOTE | 2020-10-01 12:30 | PC.NURSE ---
Pt. A=OX3, pleasant, understands limited tanzanian, sats in mid 90s on high flow 50L with 55% FiO2, meds crushed in applesauce, nystatin rinse given as ordered for thrush, continent of urine during day, asks for bedpan, multiple stage II pressure sores to bilat buttocks, covered with silver alginate and ABD pad, dressing does tend to absorb urine when pt. voids on bedpan, dressing changed once this morning, heels floating, pt. using [employer] for oral secretions, resting in bed, call ornelas in reach, bed alarm on for safety
--- NOTE | 2020-10-01 12:44 | MHC.CM.PN ---
DP Initially DP to home with resumption of [facility]. LOS R/T continueed need for high flow supplemental Oxygen. CM will follow to assess for needs for discharge.
[2020-10-01 16:46] LABS: Glucose, Whole Blood 79 mg/dL (60-115)
[2020-10-01 19:06] LABS: Glucose, Whole Blood 177 mg/dL (60-115)
[2020-10-02] VITALS (13 sets, daily range): BP systolic 105–113; BP diastolic 58–60; PULSE 92–121; RESP 18–20; TEMP 36.5–37.1; O2SAT 91–97
[2020-10-02] MEDS: Omeprazole 20 MG CAPSULE.DR PO (05:07)
[2020-10-02] MEDS: Morphine Sulfate 2 MG/ML CARTRIDGE 1 MG IVPUSH (05:59)
[2020-10-02 06:41] LABS: Hematocrit 33.9 % (37-47); Hemoglobin 10.3 g/dl (12.0-16.0); Mean Corpuscular HGB Conc 30.4 g/dl (31.0-35.0); Mean Corpuscular Hemoglobin 25.2 pg (27.0-33.0); Mean Corpuscular Volume 83.1 fL (80-98); Platelet Count 468 X10*3/uL (160-400); Red Blood Count 4.08 X10*6/uL (4.20-5.50); Red Cell Distribution Width 14.7 % (11.0-16.0)
[2020-10-02 06:45] LABS: Anion Gap 11 (12-20); Blood Urea Nitrogen 15 mg/dL (9-16); Calcium 8.1 mg/dL (8.4-10.2); Carbon Dioxide 35 mmol/L (22-29); Chloride 97 mmol/L (96-108); Creatinine Clr Calc Pharmacy 86.5; Estimated Glomerular Filt Rate > 60; Glucose Fasting 106 mg/dL (60-99); Potassium 4.7 mmol/L (3.3-5.1); Sodium 138 mmol/L (135-145)
[2020-10-02 07:11] LABS: Glucose, Whole Blood 110 mg/dL (60-115)
[2020-10-02 08:04] LABS: Band Neutrophils Percent 4 % (3-5); Basophils Abs Manual 0.3 X10*3/uL (0.0-0.3); Basophils Percent Manual 2 % (0-1); Eosinophils Absolute Manual 0.2 X10*3/UL (0.0-0.8); Eosinophils Percent Manual 1 % (0-4); Hypochromasia 1+; Lymphocytes Absolute Manual 8.1 X10*3/uL (0.6-4.8); Lymphocytes Percent Manual 54 % (20-40); Monocytes Absolute Manual 0.2 X10*3/uL (0.0-1.2); Monocytes Percent Manual 1 % (2-11); Neutrophils Absolute Manual 6.3 X10*3/uL (2.2-7.9); Neutrophils Percent Manual 38 % (45-73); RBC Morphology NOTED; Smudge Cells PRESENT
[2020-10-02 08:05] LABS: Ovalocytes 1+; Polychromasia 1+
[2020-10-02 08:06] LABS: Platelet Estimate INCREASED (NORMAL); Schistocytes 1+
[2020-10-02 08:07] LABS: Platelet Morphology Comment NOTE
[2020-10-02] MEDS: Docusate Sodium 100 MG CAPSULE PO ×2 (09:16→20:51)
[2020-10-02] MEDS: Metoprolol Tartrate 25 MG TABLET PO ×2 (09:16→20:50)
[2020-10-02] MEDS: 0.9 % Sodium Chloride Flush 3 ML SYRINGE IVFLUSH ×3 (09:17→23:57)
[2020-10-02] MEDS: Nystatin Oral Susp 500,000 UNIT/5 ML ORAL.SUSP 500000 UNIT PO ×3 (09:17→20:51)
[2020-10-02] MEDS: Cholecalciferol (Vitamin D3) 25 MCG TABLET 50 MCG PO (09:17)
[2020-10-02] MEDS: guaiFENesin DM 100/10/5 ML 5 ML SYRUP 10 ML PO ×2 (09:17→23:57)
[2020-10-02] MEDS: Apixaban 2.5 MG TABLET PO ×2 (09:17→20:51)
[2020-10-02] MEDS: Insulin Glargine,Hum.rec.anlog 100 UNIT/ML 10 ML VIAL 8 UNIT SUBCUT (09:17)
--- NOTE | 2020-10-02 10:38 | PC.NURSE ---
Pt. A+Ox3, LS dim, on High Flow at 50L and 40%, sats at 94% at rest, desats easily with movement, using [employer] for oral secretions, WBC count elevated-MD made aware, incontinent at times, multiple stage II to coccyx, foam dressing in place, no edema noted, 2 max assist to recliner, resting now, call ornelas in reach, alarm on for safety
[2020-10-02] MEDS: Nystatin Powder 15 GM BOTTLE 1 APPL TOPICAL ×2 (10:54→23:57)
[2020-10-02 11:13] LABS: Glucose, Whole Blood 274 mg/dL (60-115)
[2020-10-02] MEDS: Insulin Lispro 100 UNIT/ML 3 ML VIAL SUBCUT (11:24)
--- NOTE | 2020-10-02 11:50 | HO.PM.IMPN ---
Subjective Subjective Date of Service: 10/02/20 Interval History: Seen in for follow up for donte tarango--43 days. She remains hypoxic on non rebreather and high flow with O2 droping to 80s Review of Systems Gen: no fever Resp: + sob, no cough CV: no chest, no SALAMANCA, no leg edema GI: No n/v, no abd pain Neuro: No confusion Physical Exam Vital Signs: Vital Signs: Last Vital Signs Temp 98.8 F 10/02/20 11:22 Pulse 92 10/02/20 11:22 Resp 20 10/02/20 11:22 BP 107/58 L 10/02/20 11:22 Pulse Ox 94 10/02/20 11:22 Body Mass Index 27.3 General: AO X 3, no acute distress Resp: mild respiratory distress at the time of exam CVS: S1,S2,RRR GI: +BS, NT, no distention Skin: No rash Neuro: motor grossly intact Psych: appropriate affect Objective Data Current Medications Generic Name Dose Route Start Last Admin Trade Name Caseq PRN Reason Stop Dose Admin Acetaminophen 650 mg 08/20/20 16:18 09/28/20 20:12 Acetaminophen 325 Mg Tablet PO 650 mg Q6H PRN Administration Pain, Mild (Pain Scale 1-3) Apixaban 2.5 mg 09/22/20 21:00 10/02/20 09:17 Apixaban 2.5 Mg Tablet PO 2.5 mg BID [facility]CIE Administration Docusate Sodium 100 mg 09/23/20 10:45 10/02/20 09:16 Docusate Sodium 100 Mg Capsule PO 100 mg BID [facility] Administration Guaifenesin/Dextromethorphan 10 ml 09/22/20 10:15 10/02/20 09:17 Guaifenesin Dm 100/10/5 Ml 5 Ml Syrup PO 10 ml Q6H [facility] Administration Insulin Glargine 8 unit 09/19/20 09:00 10/02/20 09:17 Insulin Glargine,Hum.Rec.Anlog 100 Unit/Ml 10 Ml Vial SUBCUT 8 unit DAILY [facility] Administration Insulin Human Lispro 0 unit 08/20/20 16:30 10/02/20 11:24 Insulin Lispro 100 Unit/Ml 3 Ml Vial SUBCUT 6 unit QIDACHS [facility] Administration Protocol Lidocaine HCl 15 ml 09/08/20 14:05 09/23/20 20:41 Lidocaine Hcl Viscous 2 % 15 Ml Solution MUCOUS MEM 15 ml Q3H PRN Administration oral pain Magnesium Hydroxide 30 ml 09/23/20 10:32 09/23/20 11:52 Milk Of Magnesia 30 Ml Oral.Susp PO 30 ml DAILY PRN Administration constipation Metoprolol Tartrate 25 mg 08/29/20 12:55 10/02/20 09:16 Metoprolol Tartrate 25 Mg Tablet PO 25 mg BID [facility] Administration Protocol Morphine Sulfate 1 mg 09/25/20 10:35 10/02/20 05:59 Morphine Sulfate 2 Mg/Ml Cartridge IVPUSH 1 mg Q6H PRN Administration SHORTNESS OF BREATH Nystatin 1 appl 08/27/20 11:00 10/02/20 10:54 Nystatin Powder 15 Gm Bottle TOPICAL 1 appl BID [facility] Administration Protocol Nystatin 500,000 unit 09/23/20 13:00 10/02/20 09:17 Nystatin Oral Susp 500,000 Unit/5 Ml Oral.Susp PO 500,000 unit QID [facility] Administration Protocol Omeprazole 20 mg 09/19/20 06:30 10/02/20 05:07 Omeprazole 20 Mg Capsule. PO 20 mg DAILY@0630 [facility] Administration Ondansetron HCl 4 mg 08/20/20 16:18 Ondansetron Hcl 4 Mg/2 Ml Vial IVPUSH Q8H PRN Nausea and Vomiting Sodium Chloride 3 ml 08/20/20 16:18 10/02/20 09:17 0.9 % Sodium Chloride Flush 3 Ml Syringe IVFLUSH 3 ml QSHIFT [facility] Administration Vitamin D 50 mcg 08/28/20 09:00 10/02/20 09:17 Cholecalciferol (Vitamin D3) 25 Mcg Tablet PO 50 mcg DAILY [facility] Administration Zinc Oxide 1 appl 09/07/20 10:47 09/28/20 23:07 Zinc Oxide (Triple Paste) 56.7 Gm Oint TOPICAL 1 appl QID PRN Administration SKIN BREAKDOWN/BUTTOCKS/PERINE Labs CBC & Chem 7: 10/02/20 05:26 10/02/20 05:26 Microbiology Microbiology Results: Microbiology 08/30/20 16:44 Blood - Venous Blood Culture - Final No growth after 5 days. 08/30/20 16:44 Blood - Venous Blood Culture - Final No growth after 5 days. 08/27/20 13:24 Blood - Venous Blood Culture - Final No growth after 5 days. 08/27/20 13:24 Blood - Venous Blood Culture - Final No growth after 5 days. 08/30/20 16:35 Sputum - Suctioned Gram Stain - Final 08/30/20 16:35 Sputum - Suctioned Sputum Culture - Final 08/20/20 10:59 Blood - Venous Blood Culture - Final No growth after 5 days. 08/20/20 10:55 Blood - Venous Blood Culture - Final No growth after 5 days. Assessment and Plan (1) Acute respiratory failure with hypoxia: Status: Acute (2) DVT, bilateral lower limbs: Status: Acute (3) Hypernatremia: Status: Acute (4) COVID-19: Status: Acute (5) Acute respiratory failure due to COVID-19: Status: Acute (6) HLD (hyperlipidemia): Status: Acute (7) HTN (hypertension): Status: Acute (8) T2DM (type 2 diabetes mellitus): Status: Acute (9) COPD (chronic obstructive pulmonary disease): Status: Acute Assessment and Plan: hosp#43, 79yo F with HTN, DM2, COPD [place] [facility] [place] due to COVID-19 pneumonia symptom onset 08/11, test positive 08/14, admit 08/20, ICU 08/22 for ARDS patient subsequently transferred to [facility] DVTs diagnosed 08/28 initially on Lovenox changed to low dose eliquis do to hemoptysis, continues with persistent severe hypoxia--She is essentially now a covid long hauler acute hypoxic resp failure due to covid pneumonia, did not receive remdesivir since presented out of window for remdesivir Persistent hypoxia, and tachycardia Continue high-flow oxygen, and gradually wean, rec. change in position, continue cough medicine and supportive care encouraged to take Ensure, was doing well for several days, but on 09/29 needed high flow and nrb again, seems a bit better today, will try to wean back down bilateral DVTs s/p therapeutic LMWH 1 mg/kg bid from 08/29/20 thru 09/21 now on low-dose Eliquis due to blood-tinged sputum, total duration 3 months, patient made aware of risk of bleeding with anticoagulation/non full dose AC DM2 continue low-dose of Lantus to avoid hypoglycemia and continue Humalog sliding scale. CAD continue beta-blockers and statins, eliquis HTN bp stable on metoprolol 25 b.i.d. follow blood pressure closely, lisinopril discontinued due to hypotension. No room to increase dose of metoprolol for tachycardia due to low blood pressure. fungal sacral/perineal dermatitis improving continue nystatin + Zn oxide, appreciate Wound Care appreciared FEN NDD2 regular diet, Glucerna tid.
[2020-10-02] MEDS: Milk of Magnesia 30 ML ORAL.SUSP PO (13:39)
[2020-10-02 16:13] LABS: Glucose, Whole Blood 109 mg/dL (60-115)
[2020-10-02 20:03] LABS: Glucose, Whole Blood 115 mg/dL (60-115)
[2020-10-03] VITALS (13 sets, daily range): BP systolic 104–120; BP diastolic 56–66; PULSE 84–114; RESP 18–30; TEMP 36.4–36.9; O2SAT 92–100
[2020-10-03] MEDS: Omeprazole 20 MG CAPSULE.DR PO ×2 (05:49→05:56)
[2020-10-03 07:12] LABS: Glucose, Whole Blood 83 mg/dL (60-115)
--- NOTE | 2020-10-03 09:12 | P.PNIM_ITS ---
Subjective Subjective Date of Service: 10/03/20 Interval History: Seen in for follow up for donte tarango--43 days. She is doing better today with oxygenation. Presently satting at 97% however on both non-rebreather and high-flow. Physical Exam Vital Signs: Vital Signs: Last Vital Signs Temp 98.3 F 10/03/20 07:19 Pulse 102 H 10/03/20 07:19 Resp 20 10/03/20 07:30 BP 107/59 L 10/03/20 07:19 Pulse Ox 97 10/03/20 07:19 Body Mass Index 27.3 General: AO X 3, no acute distress Resp: mild respiratory distress at the time of exam CVS: S1,S2,RRR GI: +BS, NT, no distention Skin: No rash, stage 2 buttock pressure ulcer Neuro: motor grossly intact Psych: appropriate affect Objective Data Current Medications Generic Name Dose Route Start Last Admin Trade Name Freq PRN Reason Stop Dose Admin Acetaminophen 650 mg 08/20/20 16:18 09/28/20 20:12 Acetaminophen 325 Mg Tablet PO 650 mg Q6H PRN Administration Pain, Mild (Pain Scale 1-3) Apixaban 2.5 mg 09/22/20 21:00 10/02/20 20:51 Apixaban 2.5 Mg Tablet PO 2.5 mg BID [facility] Administration Docusate Sodium 100 mg 09/23/20 10:45 10/02/20 20:51 Docusate Sodium 100 Mg Capsule PO 100 mg BID [facility] Administration Guaifenesin/Dextromethorphan 10 ml 09/22/20 10:15 10/03/20 05:16 Guaifenesin Dm 100/10/5 Ml 5 Ml Syrup PO Not Given Q6H [facility] Insulin Glargine 8 unit 09/19/20 09:00 10/02/20 09:17 Insulin Glargine,Hum.Rec.Anlog 100 Unit/Ml 10 Ml Vial SUBCUT 8 unit DAILY [facility] Administration Insulin Human Lispro 0 unit 08/20/20 16:30 10/03/20 08:32 Insulin Lispro 100 Unit/Ml 3 Ml Vial SUBCUT Not Given QIDACHS [facility] Protocol Lidocaine HCl 15 ml 09/08/20 14:05 09/23/20 20:41 Lidocaine Hcl Viscous 2 % 15 Ml Solution MUCOUS MEM 15 ml Q3H PRN Administration oral pain Magnesium Hydroxide 30 ml 09/23/20 10:32 10/02/20 13:39 Milk Of Magnesia 30 Ml Oral.Susp PO 30 ml DAILY PRN Administration constipation Metoprolol Tartrate 25 mg 08/29/20 12:55 10/02/20 20:50 Metoprolol Tartrate 25 Mg Tablet PO 25 mg BID [facility] Administration Protocol Morphine Sulfate 1 mg 09/25/20 10:35 10/02/20 05:59 Morphine Sulfate 2 Mg/Ml Cartridge IVPUSH 1 mg Q6H PRN Administration SHORTNESS OF BREATH Nystatin 1 appl 08/27/20 11:00 10/02/20 23:57 Nystatin Powder 15 Gm Bottle TOPICAL 1 appl BID [facility] Administration Protocol Nystatin 500,000 unit 09/23/20 13:00 10/02/20 20:51 Nystatin Oral Susp 500,000 Unit/5 Ml Oral.Susp PO 500,000 unit QID [facility] Administration Protocol Omeprazole 20 mg 09/19/20 06:30 10/03/20 05:56 Omeprazole 20 Mg Capsule.Dr PO 20 mg DAILY@0630 [facility] Administration Ondansetron HCl 4 mg 08/20/20 16:18 Ondansetron Hcl 4 Mg/2 Ml Vial IVPUSH Q8H PRN Nausea and Vomiting Sodium Chloride 3 ml 08/20/20 16:18 10/02/20 23:57 0.9 % Sodium Chloride Flush 3 Ml Syringe IVFLUSH 3 ml QSHIFT [facility] Administration Vitamin D 50 mcg 08/28/20 09:00 10/02/20 09:17 Cholecalciferol (Vitamin D3) 25 Mcg Tablet PO 50 mcg DAILY [facility] Administration Zinc Oxide 1 appl 09/07/20 10:47 09/28/20 23:07 Zinc Oxide (Triple Paste) 56.7 Gm Oint TOPICAL 1 appl QID PRN Administration SKIN BREAKDOWN/BUTTOCKS/PERINE Labs CBC & Chem 7: 10/02/20 05:26 10/02/20 05:26 Microbiology Microbiology Results: Microbiology 08/30/20 16:44 Blood - Venous Blood Culture - Final No growth after 5 days. 08/30/20 16:44 Blood - Venous Blood Culture - Final No growth after 5 days. 08/27/20 13:24 Blood - Venous Blood Culture - Final No growth after 5 days. 08/27/20 13:24 Blood - Venous Blood Culture - Final No growth after 5 days. 08/30/20 16:35 Sputum - Suctioned Gram Stain - Final 08/30/20 16:35 Sputum - Suctioned Sputum Culture - Final 08/20/20 10:59 Blood - Venous Blood Culture - Final No growth after 5 days. 08/20/20 10:55 Blood - Venous Blood Culture - Final No growth after 5 days. Assessment and Plan (1) Acute respiratory failure with hypoxia: Status: Acute (2) DVT, bilateral lower limbs: Status: Acute (3) Hypernatremia: Status: Acute (4) COVID-19: Status: Acute (5) Acute respiratory failure due to COVID-19: Status: Acute (6) HLD (hyperlipidemia): Status: Acute (7) HTN (hypertension): Status: Acute (8) T2DM (type 2 diabetes mellitus): Status: Acute (9) COPD (chronic obstructive pulmonary disease): Status: Acute Assessment and Plan: hosp#44, 79yo F with HTN, DM2, COPD admitted to [facility] for hypoxia due to COVID-19 pneumonia symptom onset 08/11, test positive 08/14, admit 08/20, ICU 08/22 for ARDS patient subsequently transferred to [facility] DVTs diagnosed 08/28 initially on Lovenox changed to low dose eliquis do to hemoptysis, continues with persistent severe hypoxia--She is essentially now a covid long hauler acute hypoxic resp failure due to covid pneumonia, did not receive remdesivir since presented out of window for remdesivir Persistent hypoxia, and tachycardia Continue high-flow oxygen, and gradually wean, rec. change in position, continue cough medicine and supportive care encouraged to take Ensure, was doing well for several days, but on 09/29 needed high flow and nrb again, seems a bit better today, will try to wean back down bilateral DVTs s/p therapeutic LMWH 1 mg/kg bid from 08/29/20 thru 09/21 now on low-dose Eliquis due to blood-tinged sputum, total duration 3 months, patient made aware of risk of bleeding with anticoagulation/non full dose AC DM2 continue low-dose of Lantus to avoid hypoglycemia and continue Humalog sliding scale. CAD continue beta-blockers and statins, eliquis HTN bp stable on metoprolol 25 b.i.d. follow blood pressure closely, lisinopril discontinued due to hypotension. No room to increase dose of metoprolol for tachycardia due to low blood pressure. fungal sacral/perineal dermatitis improving continue nystatin + Zn oxide, appreciate Wound Care appreciared FEN NDD2 regular diet, Glucerna tid. Stage 2 buttock pressure ulcer--barrier cream to the area and foam dressing, continue to offload and rotate and reposition frequently and special air mattress etc. careful with moving pt in regards to dragging across sheet.
[2020-10-03] MEDS: Cholecalciferol (Vitamin D3) 25 MCG TABLET 50 MCG PO (10:41)
[2020-10-03] MEDS: 0.9 % Sodium Chloride Flush 3 ML SYRINGE IVFLUSH ×2 (10:41→14:56)
[2020-10-03] MEDS: Metoprolol Tartrate 25 MG TABLET PO ×2 (10:41→20:57)
[2020-10-03] MEDS: Apixaban 2.5 MG TABLET PO ×2 (10:41→20:58)
[2020-10-03] MEDS: Nystatin Powder 15 GM BOTTLE 1 APPL TOPICAL ×2 (10:42→21:31)
[2020-10-03] MEDS: Nystatin Oral Susp 500,000 UNIT/5 ML ORAL.SUSP 500000 UNIT PO ×4 (10:42→20:57)
[2020-10-03 11:32] LABS: Glucose, Whole Blood 108 mg/dL (60-115)
--- NOTE | 2020-10-03 11:50 | MHC.CM.PN ---
Patient is requiring O2 at 50 liters high flow with FIO2 at 40% NRB mask. Discharge plan is pending decrease in O2 requirements and PT eval. CM will continue to follow patient for discharge needs.
--- NOTE | 2020-10-03 13:51 | MHC.CLN ---
F/U PO INTAKE 25% CONTINUES DIET RX; GRD/M/S -APPROPRIATE PT RECEIVES ENSURE BID, PROSOURCE BID AND BELEM TO INCREASE KCALS AND SUPPORT WOUND HEALING PROVIDES 980KCALS (80% EST KCALS NEEDS), 75G PROTEIN (109% EST PROTEIN NEEDS) PT IS RECEIVING MAXIMUM PO NUTRITION SUPPORT FOLLOWING
[2020-10-03] MEDS: Morphine Sulfate 2 MG/ML CARTRIDGE 1 MG IVPUSH ×2 (14:56→21:15)
[2020-10-03 16:26] LABS: Glucose, Whole Blood 298 mg/dL (60-115)
[2020-10-03] MEDS: Insulin Lispro 100 UNIT/ML 3 ML VIAL SUBCUT (17:50)
[2020-10-03 20:38] LABS: Glucose, Whole Blood 112 mg/dL (60-115)
[2020-10-03] MEDS: Docusate Sodium 100 MG CAPSULE PO (20:58)
[2020-10-03] MEDS: guaiFENesin DM 100/10/5 ML 5 ML SYRUP 10 ML PO (21:28)
--- NOTE | 2020-10-03 23:53 | PC.NURSE ---
P: Patient c/o of severe pain from right armpit radiating to chest. sats dropping while getting PO meds 77% I: Patient given PRN Morphine, MD notified/ non-rebreather mask returned to face. E: Patient reports some improvement, resting eyes closed. O2 Sats 100% on Diaz 10L and non-rebreather. Will continue to monitor and notify MD of any change in patient status.
[2020-10-04] VITALS (12 sets, daily range): BP systolic 100–135; BP diastolic 56–70; PULSE 88–120; RESP 20–22; TEMP 36–37.2; O2SAT 97–108
[2020-10-04] MEDS: 0.9 % Sodium Chloride Flush 3 ML SYRINGE IVFLUSH ×4 (00:07→21:48)
[2020-10-04] MEDS: guaiFENesin DM 100/10/5 ML 5 ML SYRUP 10 ML PO ×2 (04:10→10:35)
[2020-10-04] MEDS: Morphine Sulfate 2 MG/ML CARTRIDGE 1 MG IVPUSH (04:10)
[2020-10-04 07:14] LABS: Glucose, Whole Blood 96 mg/dL (60-115)
[2020-10-04] MEDS: Nystatin Oral Susp 500,000 UNIT/5 ML ORAL.SUSP 500000 UNIT PO ×2 (09:30→13:14)
[2020-10-04] MEDS: Docusate Sodium 100 MG CAPSULE PO ×2 (09:30→21:35)
[2020-10-04] MEDS: Metoprolol Tartrate 25 MG TABLET PO ×2 (09:31→21:36)
[2020-10-04] MEDS: Apixaban 2.5 MG TABLET PO ×2 (09:31→21:35)
[2020-10-04] MEDS: Cholecalciferol (Vitamin D3) 25 MCG TABLET 50 MCG PO (09:31)
[2020-10-04] MEDS: Nystatin Powder 15 GM BOTTLE 1 APPL TOPICAL (09:39)
--- NOTE | 2020-10-04 10:28 | P.PNIM_ITS ---
Subjective Subjective Date of Service: 10/04/20 Interval History: Seen in for follow up for donte tarango--43 days. She is doing better today with oxygenation. Presently satting at 97% however on both non-rebreather and high-flow. Review of Systems Gen: no fever Resp: + sob, no cough CV: no chest, no SALAMANCA, no leg edema GI: No n/v, no abd pain Neuro: No confusion Physical Exam Vital Signs: Vital Signs: Last Vital Signs Temp 97.4 F 10/04/20 07:11 Pulse 107 H 10/04/20 09:31 Resp 20 10/04/20 07:11 BP 100/59 L 10/04/20 09:31 Pulse Ox 100 10/04/20 07:11 Body Mass Index 27.3 Const: Other: General: AO X 3, no acute distress Resp: mild respiratory distress at the time of exam CVS: S1,S2,RRR GI: +BS, NT, no distention Skin: No rash, stage 2 buttock pressure ulcer Neuro: motor grossly intact Psych: appropriate affect Objective Data Current Medications Generic Name Dose Route Start Last Admin Trade Name Freq PRN Reason Stop Dose Admin Acetaminophen 650 mg 08/20/20 16:18 09/28/20 20:12 Acetaminophen 325 Mg Tablet PO 650 mg Q6H PRN Administration Pain, Mild (Pain Scale 1-3) Apixaban 2.5 mg 09/22/20 21:00 10/04/20 09:31 Apixaban 2.5 Mg Tablet PO 2.5 mg BID [facility] Administration Docusate Sodium 100 mg 09/23/20 10:45 10/04/20 09:30 Docusate Sodium 100 Mg Capsule PO 100 mg BID [facility] Administration Guaifenesin/Dextromethorphan 10 ml 09/22/20 10:15 10/04/20 04:10 Guaifenesin Dm 100/10/5 Ml 5 Ml Syrup PO 10 ml Q6H [facility] Administration Insulin Glargine 8 unit 09/19/20 09:00 10/04/20 09:32 Insulin Glargine,Hum.Rec.Anlog 100 Unit/Ml 10 Ml Vial SUBCUT Not Given DAILY [facility] Insulin Human Lispro 0 unit 08/20/20 16:30 10/04/20 07:43 Insulin Lispro 100 Unit/Ml 3 Ml Vial SUBCUT Not Given QIDACHS [facility] Protocol Lidocaine HCl 15 ml 09/08/20 14:05 09/23/20 20:41 Lidocaine Hcl Viscous 2 % 15 Ml Solution MUCOUS MEM 15 ml Q3H PRN Administration oral pain Magnesium Hydroxide 30 ml 09/23/20 10:32 10/02/20 13:39 Milk Of Magnesia 30 Ml Oral.Susp PO 30 ml DAILY PRN Administration constipation Metoprolol Tartrate 25 mg 08/29/20 12:55 10/04/20 09:31 Metoprolol Tartrate 25 Mg Tablet PO 25 mg BID [facility] Administration Protocol Morphine Sulfate 1 mg 09/25/20 10:35 10/04/20 04:10 Morphine Sulfate 2 Mg/Ml Cartridge IVPUSH 1 mg Q6H PRN Administration SHORTNESS OF BREATH Nystatin 1 appl 08/27/20 11:00 10/04/20 09:39 Nystatin Powder 15 Gm Bottle TOPICAL 1 appl BID [facility] Administration Protocol Nystatin 500,000 unit 09/23/20 13:00 10/04/20 09:30 Nystatin Oral Susp 500,000 Unit/5 Ml Oral.Susp PO 500,000 unit QID [facility] Administration Protocol Omeprazole 20 mg 09/19/20 06:30 10/03/20 05:56 Omeprazole 20 Mg Capsule. PO 20 mg DAILY@0630 [facility] Administration Ondansetron HCl 4 mg 08/20/20 16:18 Ondansetron Hcl 4 Mg/2 Ml Vial IVPUSH Q8H PRN Nausea and Vomiting Sodium Chloride 3 ml 08/20/20 16:18 10/04/20 07:44 0.9 % Sodium Chloride Flush 3 Ml Syringe IVFLUSH 3 ml QSHIFT [facility] Administration Vitamin D 50 mcg 08/28/20 09:00 10/04/20 09:31 Cholecalciferol (Vitamin D3) 25 Mcg Tablet PO 50 mcg DAILY [facility] Administration Zinc Oxide 1 appl 09/07/20 10:47 09/28/20 23:07 Zinc Oxide (Triple Paste) 56.7 Gm Oint TOPICAL 1 appl QID PRN Administration SKIN BREAKDOWN/BUTTOCKS/PERINE Labs CBC & Chem 7: 10/02/20 05:26 10/02/20 05:26 Microbiology Microbiology Results: Microbiology 08/30/20 16:44 Blood - Venous Blood Culture - Final No growth after 5 days. 08/30/20 16:44 Blood - Venous Blood Culture - Final No growth after 5 days. 08/27/20 13:24 Blood - Venous Blood Culture - Final No growth after 5 days. 08/27/20 13:24 Blood - Venous Blood Culture - Final No growth after 5 days. 08/30/20 16:35 Sputum - Suctioned Gram Stain - Final 08/30/20 16:35 Sputum - Suctioned Sputum Culture - Final 08/20/20 10:59 Blood - Venous Blood Culture - Final No growth after 5 days. 08/20/20 10:55 Blood - Venous Blood Culture - Final No growth after 5 days. Assessment and Plan (1) Acute respiratory failure with hypoxia: Status: Acute (2) DVT, bilateral lower limbs: Status: Acute (3) Hypernatremia: Status: Acute (4) COVID-19: Status: Acute (5) Acute respiratory failure due to COVID-19: Status: Acute (6) HLD (hyperlipidemia): Status: Acute (7) HTN (hypertension): Status: Acute (8) T2DM (type 2 diabetes mellitus): Status: Acute (9) COPD (chronic obstructive pulmonary disease): Status: Acute Assessment and Plan: Hosp #44, 79yo F with HTN, DM2, COPD admitted to [facility] for hypoxia due to COVID-19 pneumonia symptom onset 08/11, test positive 08/14, admit 08/20, ICU 08/22 for ARDS patient subsequently transferred to [facility] DVTs diagnosed 08/28 initially on Lovenox changed to low dose eliquis do to hemoptysis, continues with persistent severe hypoxia--She is essentially now a covid long hauler acute hypoxic resp failure due to covid pneumonia, did not receive remdesivir since presented out of window for remdesivir Persistent hypoxia, and tachycardia Continue high-flow oxygen and as needed NRB and gradually wean, rec. change in position, continue cough medicine and supportive care bilateral DVTs s/p therapeutic LMWH 1 mg/kg bid from 08/29/20 thru 09/21 now on low-dose Eliquis due to blood-tinged sputum, total duration 3 months, patient made aware of risk of bleeding with anticoagulation/non full dose AC DM2 continue low-dose of Lantus to avoid hypoglycemia and continue Humalog sliding scale. CAD continue beta-blockers and statins, eliquis HTN bp stable on metoprolol 25 b.i.d. follow blood pressure closely, lisinopril discontinued due to hypotension. No room to increase dose of metoprolol for tachycardia due to low blood pressure. fungal sacral/perineal dermatitis improving continue nystatin + Zn oxide, appreciate Wound Care appreciared FEN NDD2 regular diet, Glucerna tid/mild protein calory malnutrition--Ensure supplement Stage 2 buttock pressure ulcer--barrier cream to the area and foam dressing, continue to offload and rotate and reposition frequently and special air mattress etc. careful with moving pt in regards to dragging across sheet.
[2020-10-04] MEDS: Insulin Glargine,Hum.rec.anlog 100 UNIT/ML 10 ML VIAL 8 UNIT SUBCUT (11:01)
[2020-10-04 11:05] LABS: Glucose, Whole Blood 269 mg/dL (60-115)
[2020-10-04] MEDS: Insulin Lispro 100 UNIT/ML 3 ML VIAL SUBCUT ×2 (11:37→21:35)
--- NOTE | 2020-10-04 14:09 | PC.NURSE ---
pt has large foam dressing to coccyx, dressing was soiled and changed. she has moderate amount of sanguineous drainage to dressing, silver dressing was soiled and also changed. pt tolrated well, she does not tolerate being turned and complains of pain. will medicated as needed for pain
[2020-10-04] MEDS: Morphine Sulfate 2 MG/ML CARTRIDGE IVPUSH (14:18)
[2020-10-04 15:59] LABS: Glucose, Whole Blood 158 mg/dL (60-115)
[2020-10-04 20:12] LABS: Glucose, Whole Blood 202 mg/dL (60-115)
[2020-10-05] VITALS (7 sets, daily range): BP systolic 97–120; BP diastolic 57–65; PULSE 88–119; RESP 16–24; TEMP 36.6–37.1; O2SAT 94–100
[2020-10-05 00:46] LABS: Glucose, Whole Blood 53 mg/dL (60-115)
[2020-10-05] MEDS: 0.9 % Sodium Chloride Flush 3 ML SYRINGE IVFLUSH ×3 (07:37→20:00)
[2020-10-05 07:52] LABS: Glucose, Whole Blood 110 mg/dL (60-115)
[2020-10-05] MEDS: Insulin Glargine,Hum.rec.anlog 100 UNIT/ML 10 ML VIAL 8 UNIT SUBCUT (09:30)
[2020-10-05] MEDS: Cholecalciferol (Vitamin D3) 25 MCG TABLET 50 MCG PO (09:30)
[2020-10-05] MEDS: Apixaban 2.5 MG TABLET PO ×2 (09:31→19:59)
[2020-10-05] MEDS: Docusate Sodium 100 MG CAPSULE PO ×2 (09:31→19:59)
[2020-10-05] MEDS: Metoprolol Tartrate 25 MG TABLET PO ×2 (09:31→19:58)
[2020-10-05] MEDS: Nystatin Powder 15 GM BOTTLE 1 APPL TOPICAL ×2 (09:36→20:07)
--- NOTE | 2020-10-05 11:23 | MHC.CM.PN ---
Referral sent to [facility] to determine if pt would be appropriate for that LOC. Currently awaiting response
[2020-10-05 11:32] LABS: Glucose, Whole Blood 209 mg/dL (60-115)
[2020-10-05] MEDS: Insulin Lispro 100 UNIT/ML 3 ML VIAL SUBCUT (11:36)
--- NOTE | 2020-10-05 13:49 | MHC.CLN ---
F/U PO INTAKE 25% REMAINS DIET RX; GRD/M/S -APPROPRIATE PT RECEIVES ENSURE BID, PROSOURCE BID AND BELEM TO INCREASE KCALS AND SUPPORT WOUND HEALING PROVIDES 980KCALS (80% EST KCALS NEEDS), 75G PROTEIN (109% EST PROTEIN NEEDS) PT IS RECEIVING MAXIMUM PO NUTRITION SUPPORT FOLLOWING
[2020-10-05] MEDS: Nystatin Oral Susp 500,000 UNIT/5 ML ORAL.SUSP 500000 UNIT PO ×3 (14:07→19:59)
--- NOTE | 2020-10-05 15:13 | P.PNIM_ITS ---
Subjective Subjective Date of Service: 10/06/20 Interval History: Seen in for follow up for donte tarango--43 days. She is doing better today with oxygenation. Presently satting at 100% on NRB which is a good progress Review of Systems Gen: no fever Resp: + sob, no cough CV: no chest, no SALAMANCA, no leg edema GI: No n/v, no abd pain Neuro: No confusion Physical Exam Vital Signs: Vital Signs: Last Vital Signs Temp 98 F 10/05/20 11:03 Pulse 88 10/05/20 11:03 Resp 16 10/05/20 11:03 BP 109/58 L 10/05/20 11:03 Pulse Ox 100 10/05/20 11:03 Body Mass Index 27.3 Const: Other: General: AO X 3, no acute distress Resp: mild respiratory distress at the time of exam CVS: S1,S2,RRR GI: +BS, NT, no distention Skin: No rash, stage 2 buttock pressure ulcer Neuro: motor grossly intact Psych: appropriate affect Objective Data Current Medications Generic Name Dose Route Start Last Admin Trade Name Freq PRN Reason Stop Dose Admin Acetaminophen 650 mg 08/20/20 16:18 09/28/20 20:12 Acetaminophen 325 Mg Tablet PO 650 mg Q6H PRN Administration Pain, Mild (Pain Scale 1-3) Apixaban 2.5 mg 09/22/20 21:00 10/05/20 09:31 Apixaban 2.5 Mg Tablet PO 2.5 mg BID [facility] Administration Docusate Sodium 100 mg 09/23/20 10:45 10/05/20 09:31 Docusate Sodium 100 Mg Capsule PO 100 mg BID [facility] Administration Guaifenesin/Dextromethorphan 10 ml 09/22/20 10:15 10/05/20 10:20 Guaifenesin Dm 100/10/5 Ml 5 Ml Syrup PO Not Given Q6H [facility] Insulin Glargine 8 unit 09/19/20 09:00 10/05/20 09:30 Insulin Glargine,Hum.Rec.Anlog 100 Unit/Ml 10 Ml Vial SUBCUT 8 unit DAILY [facility] Administration Insulin Human Lispro 0 unit 08/20/20 16:30 10/05/20 11:36 Insulin Lispro 100 Unit/Ml 3 Ml Vial SUBCUT 4 unit QIDACHS [facility] Administration Protocol Lidocaine HCl 15 ml 09/08/20 14:05 09/23/20 20:41 Lidocaine Hcl Viscous 2 % 15 Ml Solution MUCOUS MEM 15 ml Q3H PRN Administration oral pain Magnesium Hydroxide 30 ml 09/23/20 10:32 10/02/20 13:39 Milk Of Magnesia 30 Ml Oral.Susp PO 30 ml DAILY PRN Administration constipation Metoprolol Tartrate 25 mg 08/29/20 12:55 10/05/20 09:31 Metoprolol Tartrate 25 Mg Tablet PO 25 mg BID [facility] Administration Protocol Morphine Sulfate 2 mg 10/04/20 11:00 10/04/20 14:18 Morphine Sulfate 2 Mg/Ml Cartridge IVPUSH 2 mg Q4H PRN Administration Pain, Severe (Pain Scale 7-10) Nystatin 1 appl 08/27/20 11:00 10/05/20 09:36 Nystatin Powder 15 Gm Bottle TOPICAL 1 appl BID [facility] Administration Protocol Nystatin 500,000 unit 09/23/20 13:00 10/05/20 14:07 Nystatin Oral Susp 500,000 Unit/5 Ml Oral.Susp PO 500,000 unit QID [facility] Administration Protocol Omeprazole 20 mg 09/19/20 06:30 10/05/20 05:26 Omeprazole 20 Mg Capsule.Dr PO Not Given DAILY@0630 [facility] Ondansetron HCl 4 mg 08/20/20 16:18 Ondansetron Hcl 4 Mg/2 Ml Vial IVPUSH Q8H PRN Nausea and Vomiting Sodium Chloride 3 ml 08/20/20 16:18 10/05/20 07:37 0.9 % Sodium Chloride Flush 3 Ml Syringe IVFLUSH 3 ml QSHIFT [facility] Administration Vitamin D 50 mcg 08/28/20 09:00 10/05/20 09:30 Cholecalciferol (Vitamin D3) 25 Mcg Tablet PO 50 mcg DAILY [facility] Administration Zinc Oxide 1 appl 09/07/20 10:47 09/28/20 23:07 Zinc Oxide (Triple Paste) 56.7 Gm Oint TOPICAL 1 appl QID PRN Administration SKIN BREAKDOWN/BUTTOCKS/PERINE Labs CBC & Chem 7: 10/02/20 05:26 10/02/20 05:26 Microbiology Microbiology Results: Microbiology 08/30/20 16:44 Blood - Venous Blood Culture - Final No growth after 5 days. 08/30/20 16:44 Blood - Venous Blood Culture - Final No growth after 5 days. 08/27/20 13:24 Blood - Venous Blood Culture - Final No growth after 5 days. 08/27/20 13:24 Blood - Venous Blood Culture - Final No growth after 5 days. 08/30/20 16:35 Sputum - Suctioned Gram Stain - Final 08/30/20 16:35 Sputum - Suctioned Sputum Culture - Final 08/20/20 10:59 Blood - Venous Blood Culture - Final No growth after 5 days. 08/20/20 10:55 Blood - Venous Blood Culture - Final No growth after 5 days. Assessment and Plan (1) Acute respiratory failure with hypoxia: Status: Acute (2) DVT, bilateral lower limbs: Status: Acute (3) Hypernatremia: Status: Acute (4) COVID-19: Status: Acute (5) Acute respiratory failure due to COVID-19: Status: Acute (6) HLD (hyperlipidemia): Status: Acute (7) HTN (hypertension): Status: Acute (8) T2DM (type 2 diabetes mellitus): Status: Acute (9) COPD (chronic obstructive pulmonary disease): Status: Acute Assessment and Plan: Hosp #44, 79yo F with HTN, DM2, COPD admitted to [facility] for hypoxia due to COVID-19 pneumonia symptom onset 08/11, test positive 08/14, admit 08/20, ICU 08/22 for ARDS patient subsequently transferred [facility] DVTs diagnosed 08/28 initially on Lovenox changed to low dose eliquis do to hemoptysis, continues with persistent severe hypoxia--She is essentially now a covid long hauler acute hypoxic resp failure due to covid pneumonia, did not receive remdesivir since presented out of window for remdesivir Persistent hypoxia, and tachycardia Continue weaning, bilateral DVTs s/p therapeutic LMWH 1 mg/kg bid from 08/29/20 thru 09/21 now on low-dose Eliquis due to blood-tinged sputum, total duration 3 months, patient made aware of risk of bleeding with anticoagulation/non full dose AC retest for covid DM2 continue low-dose of Lantus to avoid hypoglycemia and continue Humalog sliding scale. CAD continue beta-blockers and statins, eliquis HTN bp stable on metoprolol 25 b.i.d. follow blood pressure closely, lisinopril discontinued due to hypotension. No room to increase dose of metoprolol for tachycardia due to low blood pressure. fungal sacral/perineal dermatitis improving continue nystatin + Zn oxide, appreciate Wound Care appreciared FEN NDD2 regular diet, Glucerna tid/mild protein calory malnutrition--Ensure supplement Stage 2 buttock pressure ulcer--barrier cream to the area and foam dressing, continue to offload and rotate and reposition frequently and special air mattress etc. careful with moving pt in regards to dragging across sheet.
[2020-10-05] MEDS: guaiFENesin DM 100/10/5 ML 5 ML SYRUP 10 ML PO ×2 (16:32→22:31)
[2020-10-05 16:36] LABS: Glucose, Whole Blood 111 mg/dL (60-115)
[2020-10-05 20:58] LABS: Glucose, Whole Blood 142 mg/dL (60-115)
[2020-10-06] VITALS (7 sets, daily range): BP systolic 92–115; BP diastolic 53–61; PULSE 87–118; RESP 18–35; TEMP 36.5–36.9; O2SAT 91–100
[2020-10-06] MEDS: Omeprazole 20 MG CAPSULE.DR PO (06:20)
[2020-10-06] MEDS: guaiFENesin DM 100/10/5 ML 5 ML SYRUP 10 ML PO ×3 (06:20→21:03)
[2020-10-06 07:22] LABS: Glucose, Whole Blood 116 mg/dL (60-115)
--- NOTE | 2020-10-06 08:50 | HO.PM.IMPN ---
Subjective Subjective Date of Service: 10/06/20 Interval History: Seen in for follow up for donte tarango--43 days. She is doing better today with oxygenation. Presently satting at 100% on NRB which is a good progress Review of Systems Gen: no fever Resp: + sob, no cough CV: no chest, no SALAMANCA, no leg edema GI: No n/v, no abd pain Neuro: No confusion Physical Exam Vital Signs: Vital Signs: Last Vital Signs Temp 98.0 F 10/06/20 08:00 Pulse 118 H 10/06/20 08:00 Resp 35 H 10/06/20 08:00 BP 113/61 10/06/20 08:00 Pulse Ox 91 L 10/06/20 08:00 Body Mass Index 27.3 Const: Other: General: AO X 3, no acute distress Resp: mild respiratory distress at the time of exam CVS: S1,S2,RRR GI: +BS, NT, no distention Skin: No rash, stage 2 buttock pressure ulcer Neuro: motor grossly intact Psych: appropriate affect Objective Data Current Medications Generic Name Dose Route Start Last Admin Trade Name Freq PRN Reason Stop Dose Admin Acetaminophen 650 mg 08/20/20 16:18 09/28/20 20:12 Acetaminophen 325 Mg Tablet PO 650 mg Q6H PRN Administration Pain, Mild (Pain Scale 1-3) Apixaban 2.5 mg 09/22/20 21:00 10/05/20 19:59 Apixaban 2.5 Mg Tablet PO 2.5 mg BID LUCIE Administration Docusate Sodium 100 mg 09/23/20 10:45 10/05/20 19:59 Docusate Sodium 100 Mg Capsule PO 100 mg BID LUCIE Administration Guaifenesin/Dextromethorphan 10 ml 09/22/20 10:15 10/06/20 06:20 Guaifenesin Dm 100/10/5 Ml 5 Ml Syrup PO 10 ml Q6H LUCIE Administration Insulin Glargine 8 unit 09/19/20 09:00 10/05/20 09:30 Insulin Glargine,Hum.Rec.Anlog 100 Unit/Ml 10 Ml Vial SUBCUT 8 unit DAILY [facility]CIE Administration Insulin Human Lispro 0 unit 08/20/20 16:30 10/05/20 21:21 Insulin Lispro 100 Unit/Ml 3 Ml Vial SUBCUT Not Given QIDACHS [facility] Protocol Lidocaine HCl 15 ml 09/08/20 14:05 09/23/20 20:41 Lidocaine Hcl Viscous 2 % 15 Ml Solution MUCOUS MEM 15 ml Q3H PRN Administration oral pain Magnesium Hydroxide 30 ml 09/23/20 10:32 10/02/20 13:39 Milk Of Magnesia 30 Ml Oral.Susp PO 30 ml DAILY PRN Administration constipation Metoprolol Tartrate 25 mg 08/29/20 12:55 10/05/20 19:58 Metoprolol Tartrate 25 Mg Tablet PO 25 mg BID [facility] Administration Protocol Morphine Sulfate 2 mg 10/04/20 11:00 10/04/20 14:18 Morphine Sulfate 2 Mg/Ml Cartridge IVPUSH 2 mg Q4H PRN Administration Pain, Severe (Pain Scale 7-10) Nystatin 1 appl 08/27/20 11:00 10/05/20 20:07 Nystatin Powder 15 Gm Bottle TOPICAL 1 appl BID [facility] Administration Protocol Nystatin 500,000 unit 09/23/20 13:00 10/05/20 19:59 Nystatin Oral Susp 500,000 Unit/5 Ml Oral.Susp PO 500,000 unit QID [facility] Administration Protocol Omeprazole 20 mg 09/19/20 06:30 10/06/20 06:20 Omeprazole 20 Mg Capsule.Dr PO 20 mg DAILY@0630 [facility] Administration Ondansetron HCl 4 mg 08/20/20 16:18 Ondansetron Hcl 4 Mg/2 Ml Vial IVPUSH Q8H PRN Nausea and Vomiting Sodium Chloride 3 ml 08/20/20 16:18 10/05/20 20:00 0.9 % Sodium Chloride Flush 3 Ml Syringe IVFLUSH 3 ml QSHIFT [facility] Administration Vitamin D 50 mcg 08/28/20 09:00 10/05/20 09:30 Cholecalciferol (Vitamin D3) 25 Mcg Tablet PO 50 mcg DAILY [facility] Administration Zinc Oxide 1 appl 09/07/20 10:47 09/28/20 23:07 Zinc Oxide (Triple Paste) 56.7 Gm Oint TOPICAL 1 appl QID PRN Administration SKIN BREAKDOWN/BUTTOCKS/PERINE Labs CBC & Chem 7: 10/02/20 05:26 10/02/20 05:26 Microbiology Microbiology Results: Microbiology 08/30/20 16:44 Blood - Venous Blood Culture - Final No growth after 5 days. 08/30/20 16:44 Blood - Venous Blood Culture - Final No growth after 5 days. 08/27/20 13:24 Blood - Venous Blood Culture - Final No growth after 5 days. 08/27/20 13:24 Blood - Venous Blood Culture - Final No growth after 5 days. 08/30/20 16:35 Sputum - Suctioned Gram Stain - Final 08/30/20 16:35 Sputum - Suctioned Sputum Culture - Final 08/20/20 10:59 Blood - Venous Blood Culture - Final No growth after 5 days. 08/20/20 10:55 Blood - Venous Blood Culture - Final No growth after 5 days. Assessment and Plan (1) Acute respiratory failure with hypoxia: Status: Acute (2) DVT, bilateral lower limbs: Status: Acute (3) Hypernatremia: Status: Acute (4) COVID-19: Status: Acute (5) Acute respiratory failure due to COVID-19: Status: Acute (6) HLD (hyperlipidemia): Status: Acute (7) HTN (hypertension): Status: Acute (8) T2DM (type 2 diabetes mellitus): Status: Acute (9) COPD (chronic obstructive pulmonary disease): Status: Acute Assessment and Plan: Hosp #47, 79yo F with HTN, DM2, COPD admitted to [facility] for hypoxia due to COVID-19 pneumonia symptom onset 08/11, test positive 08/14, admit 08/20, ICU 08/22 for ARDS patient subsequently transferred to [facility] DVTs diagnosed 08/28 initially on Lovenox changed to low dose eliquis do to hemoptysis, continues with persistent severe hypoxia--She is essentially now a covid nighat evangelista acute hypoxic resp failure due to covid pneumonia, now nighat evangelista. -Was out of Remdesevir window -completed dexamethasone. 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 CAD continue beta-blockers and statins, eliquis HTN bp stable on metoprolol 25 b.i.d. follow blood pressure closely, lisinopril discontinued due to hypotension. Increase Metoprolol to 50 bid for persitent tachycardia fungal sacral/perineal dermatitis improving continue nystatin + Zn oxide, appreciate Wound Care appreciared FEN NDD2 regular diet, Glucerna tid/mild protein calory malnutrition--Ensure supplement Stage 2 buttock pressure ulcer--barrier cream to the area and foam dressing, continue to offload and rotate and reposition frequently and special air mattress etc. careful with moving pt in regards to dragging across sheet.
[2020-10-06] MEDS: Apixaban 2.5 MG TABLET PO ×2 (09:50→21:03)
[2020-10-06] MEDS: Docusate Sodium 100 MG CAPSULE PO ×2 (09:50→21:04)
[2020-10-06] MEDS: Metoprolol Tartrate 25 MG TABLET PO ×2 (09:50→21:04)
[2020-10-06] MEDS: Nystatin Oral Susp 500,000 UNIT/5 ML ORAL.SUSP 500000 UNIT PO ×4 (09:50→21:03)
[2020-10-06] MEDS: Cholecalciferol (Vitamin D3) 25 MCG TABLET 50 MCG PO (09:50)
[2020-10-06] MEDS: Nystatin Powder 15 GM BOTTLE 1 APPL TOPICAL ×2 (09:51→22:22)
[2020-10-06] MEDS: Insulin Glargine,Hum.rec.anlog 100 UNIT/ML 10 ML VIAL 8 UNIT SUBCUT (09:51)
[2020-10-06] MEDS: 0.9 % Sodium Chloride Flush 3 ML SYRINGE IVFLUSH ×2 (09:51→15:19)
[2020-10-06 10:42] LABS: IDNOW Serial# 9DD0AD1C
[2020-10-06 10:43] LABS: COVID-19 Test Negative (Negative)
[2020-10-06 11:26] LABS: Glucose, Whole Blood 120 mg/dL (60-115)
[2020-10-06 16:14] LABS: Glucose, Whole Blood 157 mg/dL (60-115)
[2020-10-06] MEDS: Insulin Lispro 100 UNIT/ML 3 ML VIAL SUBCUT ×2 (16:14→21:04)
[2020-10-06 19:57] LABS: Glucose, Whole Blood 151 mg/dL (60-115)
[2020-10-07] VITALS (8 sets, daily range): BP systolic 100–145; BP diastolic 55–68; PULSE 84–113; RESP 18–26; TEMP 36.1–36.9; O2SAT 91–97
[2020-10-07] MEDS: 0.9 % Sodium Chloride Flush 3 ML SYRINGE IVFLUSH ×3 (00:14→16:16)
[2020-10-07] MEDS: guaiFENesin DM 100/10/5 ML 5 ML SYRUP 10 ML PO ×4 (04:11→20:53)
[2020-10-07] MEDS: Omeprazole 20 MG CAPSULE.DR PO (06:22)
[2020-10-07 07:26] LABS: Glucose, Whole Blood 107 mg/dL (60-115)
[2020-10-07] MEDS: Apixaban 2.5 MG TABLET PO ×2 (09:06→20:48)
[2020-10-07] MEDS: Nystatin Oral Susp 500,000 UNIT/5 ML ORAL.SUSP 500000 UNIT PO ×4 (09:06→20:48)
[2020-10-07] MEDS: Metoprolol Tartrate 25 MG TABLET PO ×2 (09:06→20:49)
[2020-10-07] MEDS: Cholecalciferol (Vitamin D3) 25 MCG TABLET 50 MCG PO (09:06)
[2020-10-07] MEDS: Docusate Sodium 100 MG CAPSULE PO ×2 (09:06→20:48)
[2020-10-07] MEDS: Insulin Glargine,Hum.rec.anlog 100 UNIT/ML 10 ML VIAL 8 UNIT SUBCUT (09:07)
[2020-10-07] MEDS: Nystatin Powder 15 GM BOTTLE 1 APPL TOPICAL ×2 (09:07→20:51)
--- NOTE | 2020-10-07 09:23 | P.PNIM_ITS ---
Subjective Subjective Date of Service: 11/24/20 Physical Exam Vital Signs: Vital Signs: Last Vital Signs Temp 98.5 F 10/07/20 08:00 Pulse 113 H 10/07/20 08:00 Resp 26 H 10/07/20 08:00 BP 110/62 10/07/20 08:00 Pulse Ox 96 10/07/20 08:00 Body Mass Index 27.3 Other: General: AO X 3, no acute distress Resp: mild respiratory distress at the time of exam CVS: S1,S2,RRR GI: +BS, NT, no distention Skin: No rash, stage 2 buttock pressure ulcer Neuro: motor grossly intact Psych: appropriate affect Objective Data Current Medications Generic Name Dose Route Start Last Admin Trade Name Freq PRN Reason Stop Dose Admin Acetaminophen 650 mg 08/20/20 16:18 09/28/20 20:12 Acetaminophen 325 Mg Tablet PO 650 mg Q6H PRN Administration Pain, Mild (Pain Scale 1-3) Apixaban 2.5 mg 09/22/20 21:00 10/07/20 09:06 Apixaban 2.5 Mg Tablet PO 2.5 mg BID LUCIE Administration Docusate Sodium 100 mg 09/23/20 10:45 10/07/20 09:06 Docusate Sodium 100 Mg Capsule PO 100 mg BID LUCIE Administration Guaifenesin/Dextromethorphan 10 ml 09/22/20 10:15 10/07/20 09:06 Guaifenesin Dm 100/10/5 Ml 5 Ml Syrup PO 10 ml Q6H [facility] Administration Insulin Glargine 8 unit 09/19/20 09:00 10/07/20 09:07 Insulin Glargine,Hum.Rec.Anlog 100 Unit/Ml 10 Ml Vial SUBCUT 8 unit DAILY [facility] Administration Insulin Human Lispro 0 unit 08/20/20 16:30 10/07/20 09:18 Insulin Lispro 100 Unit/Ml 3 Ml Vial SUBCUT Not Given QIDACHS [facility] Protocol Lidocaine HCl 15 ml 09/08/20 14:05 09/23/20 20:41 Lidocaine Hcl Viscous 2 % 15 Ml Solution MUCOUS MEM 15 ml Q3H PRN Administration oral pain Magnesium Hydroxide 30 ml 09/23/20 10:32 10/02/20 13:39 Milk Of Magnesia 30 Ml Oral.Susp PO 30 ml DAILY PRN Administration constipation Metoprolol Tartrate 25 mg 08/29/20 12:55 10/07/20 09:06 Metoprolol Tartrate 25 Mg Tablet PO 25 mg BID [facility] Administration Protocol Morphine Sulfate 2 mg 10/04/20 11:00 10/04/20 14:18 Morphine Sulfate 2 Mg/Ml Cartridge IVPUSH 2 mg Q4H PRN Administration Pain, Severe (Pain Scale 7-10) Nystatin 1 appl 08/27/20 11:00 10/07/20 09:07 Nystatin Powder 15 Gm Bottle TOPICAL 1 appl BID [facility] Administration Protocol Nystatin 500,000 unit 09/23/20 13:00 10/07/20 09:06 Nystatin Oral Susp 500,000 Unit/5 Ml Oral.Susp PO 500,000 unit QID [facility] Administration Protocol Omeprazole 20 mg 09/19/20 06:30 10/07/20 06:22 Omeprazole 20 Mg Capsule.Dr PO 20 mg DAILY@0630 [facility] Administration Ondansetron HCl 4 mg 08/20/20 16:18 Ondansetron Hcl 4 Mg/2 Ml Vial IVPUSH Q8H PRN Nausea and Vomiting Sodium Chloride 3 ml 08/20/20 16:18 10/07/20 09:07 0.9 % Sodium Chloride Flush 3 Ml Syringe IVFLUSH 3 ml QSHIFT [facility] Administration Vitamin D 50 mcg 08/28/20 09:00 10/07/20 09:06 Cholecalciferol (Vitamin D3) 25 Mcg Tablet PO 50 mcg DAILY [facility] Administration Zinc Oxide 1 appl 09/07/20 10:47 09/28/20 23:07 Zinc Oxide (Triple Paste) 56.7 Gm Oint TOPICAL 1 appl QID PRN Administration SKIN BREAKDOWN/BUTTOCKS/PERINE Labs CBC & Chem 7: 10/12/20 08:21 10/14/20 05:43 Microbiology Microbiology Results: Microbiology 08/30/20 16:44 Blood - Venous Blood Culture - Final No growth after 5 days. 08/30/20 16:44 Blood - Venous Blood Culture - Final No growth after 5 days. 08/27/20 13:24 Blood - Venous Blood Culture - Final No growth after 5 days. 08/27/20 13:24 Blood - Venous Blood Culture - Final No growth after 5 days. 08/30/20 16:35 Sputum - Suctioned Gram Stain - Final 08/30/20 16:35 Sputum - Suctioned Sputum Culture - Final 08/20/20 10:59 Blood - Venous Blood Culture - Final No growth after 5 days. 08/20/20 10:55 Blood - Venous Blood Culture - Final No growth after 5 days. Assessment and Plan (1) Acute respiratory failure with hypoxia: Status: Resolved (2) DVT, bilateral lower limbs: (3) Hypernatremia: Status: Resolved (4) COVID-19: Status: Resolved (5) Acute respiratory failure due to COVID-19: Status: Resolved (6) HLD (hyperlipidemia): (7) HTN (hypertension): (8) T2DM (type 2 diabetes mellitus): (9) COPD (chronic obstructive pulmonary disease): Assessment and Plan: Hosp #48, 79yo F with HTN, DM2, COPD admitted on 08/20/20 with acute hypoxia due to COVID-19 pneumonia symptom onset 08/11, test positive 08/14, admit 08/20, ICU 08/22 for ARDS patient subsequently transferred to [facility] [place] ;BLE DVTs diagnosed 08/28 initially on Lovenox changed to low dose eliquis do to hemoptysis, continues with persistent severe hypoxia--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 -Was out of Remdesevir window -completed dexamethasone. -Persistent hypoxia, and tachycardia -weaning has been slow and painful, going back and forth on NRB or Sofy flow or combination of the 2--today on nasal canula! -IgG level pending (for educational purpose_ -Repeat covid 10/06/20 is negative--and therefore may be transfered out of the units if bed needed Bilateral DVTs 09/17/20 -s/p therapeutic LMWH 1 mg/kg bid from 08/29/20 thru 09/21 -now on Eliquis 2.5 bid, total duration 3 months, patient made aware of risk of bleeding with anticoagulation/non full dose AC Diabetes 2-- accepatable control -continue Lantus 8 HS and SSI CAD continue beta-blockers and statins, eliquis HTN--BP ok on Metoprolol 25 BID, Lisinopril discontinued due low BP tendency fungal sacral/perineal dermatitis improving continue nystatin + Zn oxide, appreciate Wound Care appreciared FEN NDD2 regular diet, Glucerna tid/mild protein calory malnutrition--Ensure supplement Stage 2 buttock pressure ulcer--barrier cream to the area and foam dressing, continue to offload and rotate and reposition frequently and special air mattress etc. careful with moving pt in regards to dragging across sheet. Routine labs at least once a week, check CBC, chemistry today
[2020-10-07 10:15] LABS: Hematocrit 34.5 % (37-47); Hemoglobin 10.3 g/dl (12.0-16.0); Mean Corpuscular HGB Conc 29.9 g/dl (31.0-35.0); Mean Corpuscular Volume 83.7 fL (80-98); Mean Platelet Volume 9.2 fL (9.4-12.3); Platelet Count 442 X10*3/uL (160-400); Red Blood Count 4.12 X10*6/uL (4.20-5.50); Red Cell Distribution Width 14.4 % (11.0-16.0)
[2020-10-07 10:39] LABS: Anion Gap 11 (12-20); Blood Urea Nitrogen 11 mg/dL (9-16); Carbon Dioxide 34 mmol/L (22-29); Chloride 95 mmol/L (96-108); Creatinine Clr Calc Pharmacy 76.3; Estimated Glomerular Filt Rate > 60; Glucose Random 240 mg/dL (60-115); Potassium 4.4 mmol/L (3.3-5.1); Sodium 136 mmol/L (135-145)
[2020-10-07 11:32] LABS: Glucose, Whole Blood 217 mg/dL (60-115)
[2020-10-07] MEDS: Insulin Lispro 100 UNIT/ML 3 ML VIAL SUBCUT (12:32)
[2020-10-07 16:34] LABS: Glucose, Whole Blood 95 mg/dL (60-115)
[2020-10-07 20:06] LABS: Glucose, Whole Blood 110 mg/dL (60-115)
[2020-10-08] VITALS (8 sets, daily range): BP systolic 98–119; BP diastolic 56–66; PULSE 91–117; RESP 18–24; TEMP 36.4–37; O2SAT 94–98
[2020-10-08] MEDS: 0.9 % Sodium Chloride Flush 3 ML SYRINGE IVFLUSH ×4 (00:57→21:27)
[2020-10-08] MEDS: guaiFENesin DM 100/10/5 ML 5 ML SYRUP 10 ML PO ×4 (03:52→21:24)
[2020-10-08] MEDS: Omeprazole 20 MG CAPSULE.DR PO (05:52)
[2020-10-08 07:30] LABS: Glucose, Whole Blood 120 mg/dL (60-115)
--- NOTE | 2020-10-08 08:33 | MHC.CM.PN ---
pt remains on high level of o2. refs made to snfs and ltac's . will follow up c ltac's for available bed. cm to cont. to follow.
[2020-10-08] MEDS: Docusate Sodium 100 MG CAPSULE PO ×2 (09:17→21:37)
[2020-10-08] MEDS: Cholecalciferol (Vitamin D3) 25 MCG TABLET 50 MCG PO (09:18)
[2020-10-08] MEDS: Insulin Glargine,Hum.rec.anlog 100 UNIT/ML 10 ML VIAL 8 UNIT SUBCUT (09:19)
[2020-10-08] MEDS: Apixaban 2.5 MG TABLET PO ×2 (09:19→21:25)
[2020-10-08] MEDS: Nystatin Powder 15 GM BOTTLE 1 APPL TOPICAL (09:20)
[2020-10-08] MEDS: Metoprolol Tartrate 25 MG TABLET PO ×2 (09:20→21:24)
[2020-10-08 11:11] LABS: SARS COV2 IgG Positive (Negative)
[2020-10-08 11:33] LABS: Glucose, Whole Blood 313 mg/dL (60-115)
[2020-10-08] MEDS: Insulin Lispro 100 UNIT/ML 3 ML VIAL SUBCUT ×2 (11:54→21:41)
[2020-10-08] MEDS: Nystatin Oral Susp 500,000 UNIT/5 ML ORAL.SUSP 500000 UNIT PO ×3 (12:53→21:27)
--- NOTE | 2020-10-08 13:19 | MHC.CLN ---
F/U PO INTAKE 25/50% CONTINUES DIET RX; GRD/M/S -APPROPRIATE PT RECEIVES ENSURE BID, PROSOURCE BID AND BELEM PROVIDES 980KCALS (80% EST KCALS NEEDS), 75G PROTEIN (109% EST PROTEIN NEEDS) PT IS RECEIVING MAXIMUM PO NUTRITION SUPPORT FOLLOWING
[2020-10-08 16:37] LABS: Glucose, Whole Blood 79 mg/dL (60-115)
--- NOTE | 2020-10-08 16:57 | HO.PM.IMPN ---
Subjective Subjective Date of Service: 10/08/20 Interval History: remains on O2 via Venturi mask at 12L (fiO2 50%) plus HFNC via Diaz device at 12L wants to get up and walk no fever no pain Physical Exam Vital Signs: Vital Signs: Last Vital Signs Temp 97.6 F 10/08/20 16:00 Pulse 93 10/08/20 16:00 Resp 18 10/08/20 16:00 BP 115/59 L 10/08/20 16:00 Pulse Ox 98 10/08/20 16:00 Body Mass Index 27.3 Gen: in no acute distress HEENT: sclera anicteric, moist mucus membranes Neck: supple Lungs: clear to auscultation bilaterally Heart: regular rate and rhythm, no murmurs Abd: soft, non-tender, non-distended Ext: no edema Skin: warm/well-perfused, stage 2 sacral pressure ulcer Neuro: alert and oriented x3, no focal findings Psych: appropriate affect Objective Data Current Medications Generic Name Dose Route Start Last Admin Trade Name Caseq PRN Reason Stop Dose Admin Acetaminophen 650 mg 08/20/20 16:18 09/28/20 20:12 Acetaminophen 325 Mg Tablet PO 650 mg Q6H PRN Administration Pain, Mild (Pain Scale 1-3) Apixaban 2.5 mg 09/22/20 21:00 10/08/20 09:19 Apixaban 2.5 Mg Tablet PO 2.5 mg BID LUCIE Administration Docusate Sodium 100 mg 09/23/20 10:45 10/08/20 09:17 Docusate Sodium 100 Mg Capsule PO 100 mg BID [facility]CIE Administration Guaifenesin/Dextromethorphan 10 ml 09/22/20 10:15 10/08/20 16:17 Guaifenesin Dm 100/10/5 Ml 5 Ml Syrup PO 10 ml Q6H [facility]CIE Administration Insulin Glargine 8 unit 09/19/20 09:00 10/08/20 09:19 Insulin Glargine,Hum.Rec.Anlog 100 Unit/Ml 10 Ml Vial SUBCUT 8 unit DAILY [facility] Administration Insulin Human Lispro 0 unit 08/20/20 16:30 10/08/20 16:35 Insulin Lispro 100 Unit/Ml 3 Ml Vial SUBCUT Not Given QIDACHS [facility] Protocol Lidocaine HCl 15 ml 09/08/20 14:05 09/23/20 20:41 Lidocaine Hcl Viscous 2 % 15 Ml Solution MUCOUS MEM 15 ml Q3H PRN Administration oral pain Magnesium Hydroxide 30 ml 09/23/20 10:32 10/02/20 13:39 Milk Of Magnesia 30 Ml Oral.Susp PO 30 ml DAILY PRN Administration constipation Metoprolol Tartrate 25 mg 08/29/20 12:55 10/08/20 09:20 Metoprolol Tartrate 25 Mg Tablet PO 25 mg BID [facility] Administration Protocol Morphine Sulfate 2 mg 10/04/20 11:00 10/04/20 14:18 Morphine Sulfate 2 Mg/Ml Cartridge IVPUSH 2 mg Q4H PRN Administration Pain, Severe (Pain Scale 7-10) Nystatin 1 appl 08/27/20 11:00 10/08/20 09:20 Nystatin Powder 15 Gm Bottle TOPICAL 1 appl BID [facility] Administration Protocol Nystatin 500,000 unit 09/23/20 13:00 10/08/20 12:53 Nystatin Oral Susp 500,000 Unit/5 Ml Oral.Susp PO 500,000 unit QID [facility] Administration Protocol Omeprazole 20 mg 09/19/20 06:30 10/08/20 05:52 Omeprazole 20 Mg Capsule. PO 20 mg DAILY@0630 [facility] Administration Ondansetron HCl 4 mg 08/20/20 16:18 Ondansetron Hcl 4 Mg/2 Ml Vial IVPUSH Q8H PRN Nausea and Vomiting Sodium Chloride 3 ml 08/20/20 16:18 10/08/20 16:17 0.9 % Sodium Chloride Flush 3 Ml Syringe IVFLUSH 3 ml QSHIFT [facility] Administration Vitamin D 50 mcg 08/28/20 09:00 10/08/20 09:18 Cholecalciferol (Vitamin D3) 25 Mcg Tablet PO 50 mcg DAILY [facility] Administration Zinc Oxide 1 appl 09/07/20 10:47 09/28/20 23:07 Zinc Oxide (Triple Paste) 56.7 Gm Oint TOPICAL 1 appl QID PRN Administration SKIN BREAKDOWN/BUTTOCKS/PERINE Labs CBC & Chem 7: 10/07/20 09:58 10/07/20 09:58 Microbiology Microbiology Results: Microbiology 08/30/20 16:44 Blood - Venous Blood Culture - Final No growth after 5 days. 08/30/20 16:44 Blood - Venous Blood Culture - Final No growth after 5 days. 08/27/20 13:24 Blood - Venous Blood Culture - Final No growth after 5 days. 08/27/20 13:24 Blood - Venous Blood Culture - Final No growth after 5 days. 08/30/20 16:35 Sputum - Suctioned Gram Stain - Final 08/30/20 16:35 Sputum - Suctioned Sputum Culture - Final 08/20/20 10:59 Blood - Venous Blood Culture - Final No growth after 5 days. 08/20/20 10:55 Blood - Venous Blood Culture - Final No growth after 5 days. Assessment and Plan (1) Acute respiratory failure with hypoxia: Status: Acute (2) DVT, bilateral lower limbs: Status: Acute (3) Hypernatremia: Status: Acute (4) COVID-19: Status: Acute (5) Acute respiratory failure due to COVID-19: Status: Acute (6) HLD (hyperlipidemia): Status: Acute (7) HTN (hypertension): Status: Acute (8) T2DM (type 2 diabetes mellitus): Status: Acute (9) COPD (chronic obstructive pulmonary disease): Status: Acute Assessment and Plan: hospital d#50 79yo F with HTN, DM2, COPD admitted 08/20/20 for acute hypoxic respiratory failure due to COVID-19 (onset of symptoms 08/11/20, initial positive molecular test 08/14/20) to ICU 08/22/20 for ARDS BLE DVTs diagnosed 08/28 DNR/DNI 09/02 IMC status 09/03 persistent severe hypoxia, dependent on HFNC + Venturi mask # acute hypoxic respiratory failure due to COVID-19 pneumonia - completed dexamethasone, presented out of resmdesivir window - gradually weaning supplemental O2 - repeat molecular test 10/06/20 negative, IgG 10/05/20 positive; does not, strictly speaking, require isolation precautions at this point; rather, she is being treated as a long-hauler # B DVTs - s/p therapeutic LMWH 1 mg/kg bid 08/29-09/21/20, now on apixaban 2.5mg bid, total duration 3 mo # DM2 - continue Lantus + correction-dose lispro # CAD - continue metoprolol, statin # HTN - continue metoprolol # fungal dermatitis - nystatin + Zn oxide # stage 2 sacral pressure ulcer - barrier cream to the area and foam dressing, continue to offload and rotate and reposition frequently and special air mattress etc. careful with moving pt in regards to dragging across sheet. # FEN # mild protein-calorie malnutrition - NDD2 regular diet, Glucerna tid # dispo - pending improvement in oxygenation - could be LTACH candidate, will discuss with CM
[2020-10-08 21:17] LABS: Glucose, Whole Blood 320 mg/dL (60-115)
[2020-10-08] MEDS: Atorvastatin Calcium 20 MG TABLET PO (21:25)
[2020-10-09] VITALS (8 sets, daily range): BP systolic 101–122; BP diastolic 55–65; PULSE 86–125; RESP 18–30; TEMP 36.2–37.1; O2SAT 91–100
[2020-10-09] MEDS: Nystatin Powder 15 GM BOTTLE 1 APPL TOPICAL ×3 (01:36→21:26)
[2020-10-09] MEDS: Omeprazole 20 MG CAPSULE.DR PO (05:14)
[2020-10-09] MEDS: guaiFENesin DM 100/10/5 ML 5 ML SYRUP 10 ML PO ×3 (05:14→16:26)
[2020-10-09 07:16] LABS: Glucose, Whole Blood 119 mg/dL (60-115)
[2020-10-09] MEDS: Cholecalciferol (Vitamin D3) 25 MCG TABLET 50 MCG PO (08:57)
[2020-10-09] MEDS: Docusate Sodium 100 MG CAPSULE PO ×2 (08:57→20:34)
[2020-10-09] MEDS: Metoprolol Tartrate 25 MG TABLET PO ×2 (08:57→20:34)
[2020-10-09] MEDS: Apixaban 2.5 MG TABLET PO ×2 (08:57→20:34)
[2020-10-09] MEDS: Nystatin Oral Susp 500,000 UNIT/5 ML ORAL.SUSP 500000 UNIT PO ×4 (08:58→20:33)
[2020-10-09] MEDS: Insulin Glargine,Hum.rec.anlog 100 UNIT/ML 10 ML VIAL 8 UNIT SUBCUT (08:58)
[2020-10-09] MEDS: 0.9 % Sodium Chloride Flush 3 ML SYRINGE IVFLUSH ×3 (09:13→20:34)
[2020-10-09 11:15] LABS: Glucose, Whole Blood 249 mg/dL (60-115)
[2020-10-09] MEDS: Insulin Lispro 100 UNIT/ML 3 ML VIAL SUBCUT ×3 (11:40→20:34)
--- NOTE | 2020-10-09 14:00 | HO.PM.IMPN ---
Subjective Subjective Date of Service: 10/09/20 Interval History: alert more short of breath- now on 12L via Venti mask + 15L via Diaz device Physical Exam Vital Signs: Vital Signs: Last Vital Signs Temp 98.7 F 10/09/20 12:00 Pulse 125 H 10/09/20 12:00 Resp 30 H 10/09/20 12:00 BP 110/56 L 10/09/20 12:00 Pulse Ox 91 L 10/09/20 12:00 Body Mass Index 27.3 Gen: in no acute distress HEENT: sclera anicteric, moist mucus membranes Neck: supple Lungs: clear to auscultation bilaterally Heart: regular rate and rhythm, no murmurs Abd: soft, non-tender, non-distended Ext: no edema Skin: warm/well-perfused, stage 2 sacral pressure ulcer Neuro: alert and oriented x3, no focal findings Psych: appropriate affect Objective Data Current Medications Generic Name Dose Route Start Last Admin Trade Name Freq PRN Reason Stop Dose Admin Acetaminophen 650 mg 08/20/20 16:18 09/28/20 20:12 Acetaminophen 325 Mg Tablet PO 650 mg Q6H PRN Administration Pain, Mild (Pain Scale 1-3) Apixaban 2.5 mg 09/22/20 21:00 10/09/20 08:57 Apixaban 2.5 Mg Tablet PO 2.5 mg BID [facility] Administration Atorvastatin Calcium 20 mg 10/08/20 21:00 10/08/20 21:25 Atorvastatin Calcium 20 Mg Tablet PO 20 mg BEDTIME [facility]E Administration Docusate Sodium 100 mg 09/23/20 10:45 10/09/20 08:57 Docusate Sodium 100 Mg Capsule PO 100 mg BID [facility] Administration Guaifenesin/Dextromethorphan 10 ml 09/22/20 10:15 10/09/20 10:58 Guaifenesin Dm 100/10/5 Ml 5 Ml Syrup PO 10 ml Q6H [facility]CIE Administration Insulin Glargine 8 unit 09/19/20 09:00 10/09/20 08:58 Insulin Glargine,Hum.Rec.Anlog 100 Unit/Ml 10 Ml Vial SUBCUT 8 unit DAILY [facility] Administration Insulin Human Lispro 0 unit 08/20/20 16:30 10/09/20 11:40 Insulin Lispro 100 Unit/Ml 3 Ml Vial SUBCUT 4 unit QIDACHS [facility] Administration Protocol Lidocaine HCl 15 ml 09/08/20 14:05 09/23/20 20:41 Lidocaine Hcl Viscous 2 % 15 Ml Solution MUCOUS MEM 15 ml Q3H PRN Administration oral pain Magnesium Hydroxide 30 ml 09/23/20 10:32 10/02/20 13:39 Milk Of Magnesia 30 Ml Oral.Susp PO 30 ml DAILY PRN Administration constipation Metoprolol Tartrate 25 mg 08/29/20 12:55 10/09/20 08:57 Metoprolol Tartrate 25 Mg Tablet PO 25 mg BID [facility] Administration Protocol Nystatin 1 appl 08/27/20 11:00 10/09/20 08:58 Nystatin Powder 15 Gm Bottle TOPICAL 1 appl BID [facility] Administration Protocol Nystatin 500,000 unit 09/23/20 13:00 10/09/20 13:23 Nystatin Oral Susp 500,000 Unit/5 Ml Oral.Susp PO 500,000 unit QID [facility] Administration Protocol Omeprazole 20 mg 09/19/20 06:30 10/09/20 05:14 Omeprazole 20 Mg Capsule.Dr PO 20 mg DAILY@0630 [facility] Administration Ondansetron HCl 4 mg 08/20/20 16:18 Ondansetron Hcl 4 Mg/2 Ml Vial IVPUSH Q8H PRN Nausea and Vomiting Sodium Chloride 3 ml 08/20/20 16:18 10/09/20 09:13 0.9 % Sodium Chloride Flush 3 Ml Syringe IVFLUSH 3 ml QSHIFT [facility] Administration Vitamin D 50 mcg 08/28/20 09:00 10/09/20 08:57 Cholecalciferol (Vitamin D3) 25 Mcg Tablet PO 50 mcg DAILY [facility] Administration Zinc Oxide 1 appl 09/07/20 10:47 09/28/20 23:07 Zinc Oxide (Triple Paste) 56.7 Gm Oint TOPICAL 1 appl QID PRN Administration SKIN BREAKDOWN/BUTTOCKS/PERINE Labs CBC & Chem 7: 10/07/20 09:58 10/07/20 09:58 Microbiology Microbiology Results: Microbiology 08/30/20 16:44 Blood - Venous Blood Culture - Final No growth after 5 days. 08/30/20 16:44 Blood - Venous Blood Culture - Final No growth after 5 days. 08/27/20 13:24 Blood - Venous Blood Culture - Final No growth after 5 days. 08/27/20 13:24 Blood - Venous Blood Culture - Final No growth after 5 days. 08/30/20 16:35 Sputum - Suctioned Gram Stain - Final 08/30/20 16:35 Sputum - Suctioned Sputum Culture - Final 08/20/20 10:59 Blood - Venous Blood Culture - Final No growth after 5 days. 08/20/20 10:55 Blood - Venous Blood Culture - Final No growth after 5 days. Assessment and Plan (1) Acute respiratory failure with hypoxia: Status: Acute (2) DVT, bilateral lower limbs: Status: Acute (3) Hypernatremia: Status: Acute (4) COVID-19: Status: Acute (5) Acute respiratory failure due to COVID-19: Status: Acute (6) HLD (hyperlipidemia): Status: Acute (7) HTN (hypertension): Status: Acute (8) T2DM (type 2 diabetes mellitus): Status: Acute (9) COPD (chronic obstructive pulmonary disease): Status: Acute Assessment and Plan: hospital d#51 79yo F with HTN, DM2, COPD admitted 08/20/20 for acute hypoxic respiratory failure due to COVID-19 (onset of symptoms 08/11/20, initial positive molecular test 08/14/20) to ICU 08/22/20 for ARDS BLE DVTs diagnosed 08/28 DNR/DNI 09/02 IMC status 09/03 persistent severe hypoxia, dependent on HFNC + Venturi mask # acute hypoxic respiratory failure due to COVID-19 pneumonia - completed dexamethasone, presented out of resmdesivir window - gradually weaning supplemental O2 but still has very high requirements - repeat molecular test 10/06/20 negative, IgG 10/05/20 positive; does not, strictly speaking, require isolation precautions at this point; rather, she is being treated as a long-hauler # B DVTs - s/p therapeutic LMWH 1 mg/kg bid 08/29-09/21/20, now on apixaban 2.5mg bid, total duration 3 mo # DM2 - continue Lantus + correction-dose lispro # CAD - continue metoprolol, statin # HTN - continue metoprolol # fungal dermatitis - nystatin + Zn oxide # stage 2 sacral pressure ulcer - barrier cream to the area and foam dressing, continue to offload and rotate and reposition frequently and special air mattress etc. careful with moving pt in regards to dragging across sheet. # FEN # mild protein-calorie malnutrition - NDD2 regular diet, Glucerna tid # dispo - pending improvement in oxygenation - could be LTACH candidate, will discuss with CM
--- NOTE | 2020-10-09 14:58 | PC.NURSE ---
Pt bilateral buttocks wounds changed per wound dressing orders. Silver alginate and gauze. Pt refusing to reposition to side with pillow. Pt has no other complaints at this time.
[2020-10-09 15:50] LABS: Glucose, Whole Blood 159 mg/dL (60-115)
[2020-10-09 19:53] LABS: Glucose, Whole Blood 188 mg/dL (60-115)
[2020-10-09] MEDS: Atorvastatin Calcium 20 MG TABLET PO (20:34)
[2020-10-10] VITALS (7 sets, daily range): BP systolic 103–127; BP diastolic 56–64; PULSE 93–115; RESP 18–30; TEMP 36.4–36.9; O2SAT 96–104
[2020-10-10] MEDS: guaiFENesin DM 100/10/5 ML 5 ML SYRUP 10 ML PO ×4 (05:47→21:06)
[2020-10-10] MEDS: Omeprazole 20 MG CAPSULE.DR PO (05:47)
[2020-10-10 07:40] LABS: Glucose, Whole Blood 115 mg/dL (60-115)
[2020-10-10] MEDS: Insulin Glargine,Hum.rec.anlog 100 UNIT/ML 10 ML VIAL 8 UNIT SUBCUT (09:24)
[2020-10-10] MEDS: Nystatin Oral Susp 500,000 UNIT/5 ML ORAL.SUSP 500000 UNIT PO ×4 (09:25→21:06)
[2020-10-10] MEDS: Metoprolol Tartrate 25 MG TABLET PO ×2 (09:25→21:06)
[2020-10-10] MEDS: 0.9 % Sodium Chloride Flush 3 ML SYRINGE IVFLUSH ×3 (09:25→21:05)
[2020-10-10] MEDS: Docusate Sodium 100 MG CAPSULE PO ×2 (09:25→21:06)
[2020-10-10] MEDS: Cholecalciferol (Vitamin D3) 25 MCG TABLET 50 MCG PO (09:25)
[2020-10-10] MEDS: Apixaban 2.5 MG TABLET PO ×2 (09:25→21:06)
[2020-10-10] MEDS: Nystatin Powder 15 GM BOTTLE 1 APPL TOPICAL ×2 (09:27→22:33)
[2020-10-10 11:20] LABS: Glucose, Whole Blood 180 mg/dL (60-115)
[2020-10-10] MEDS: Insulin Lispro 100 UNIT/ML 3 ML VIAL SUBCUT ×3 (11:31→21:07)
--- NOTE | 2020-10-10 12:05 | MHC.CLN ---
F/U PO INTAKE 50% AVG DIET RX; GRD/M/S -APPROPRIATE PT RECEIVES ENSURE BID, PROSOURCE BID AND BELEM PROVIDES 980KCALS (80% EST KCALS NEEDS), 75G PROTEIN (109% EST PROTEIN NEEDS) PT IS RECEIVING MAXIMUM PO NUTRITION SUPPORT FOLLOWING
--- NOTE | 2020-10-10 13:34 | MHC.CM.PN ---
Patient continues to require O2 at 12 liters NC with FIO2 at 50% NRB mask. Discharge plan is pending PT eval when medically stable. CM will continue to follow patient for discharge needs.
--- NOTE | 2020-10-10 14:22 | HO.PM.IMPN ---
Subjective Subjective Date of Service: 10/10/20 Interval History: remains on 15L via Diaz + 12L via Venti mask still short of breath no chest pain Physical Exam Vital Signs: Vital Signs: Last Vital Signs Temp 98.2 F 10/10/20 11:31 Pulse 97 10/10/20 11:31 Resp 30 H 10/10/20 11:31 BP 107/58 L 10/10/20 11:31 Pulse Ox 96 10/10/20 11:31 Body Mass Index 27.3 Gen: mild respiratory distress HEENT: sclera anicteric, moist mucus membranes Neck: supple Lungs: tachypneic, no adventitious sounds Heart: regular rate and rhythm, no murmurs Abd: soft, non-tender, non-distended Ext: no edema Skin: warm/well-perfused, stage 2 sacral pressure ulcer Neuro: alert and oriented x3, no focal findings Psych: appropriate affect Objective Data Current Medications Generic Name Dose Route Start Last Admin Trade Name Freq PRN Reason Stop Dose Admin Acetaminophen 650 mg 08/20/20 16:18 09/28/20 20:12 Acetaminophen 325 Mg Tablet PO 650 mg Q6H PRN Administration Pain, Mild (Pain Scale 1-3) Apixaban 2.5 mg 09/22/20 21:00 10/10/20 09:25 Apixaban 2.5 Mg Tablet PO 2.5 mg BID [facility]CIE Administration Atorvastatin Calcium 20 mg 10/08/20 21:00 10/09/20 20:34 Atorvastatin Calcium 20 Mg Tablet PO 20 mg BEDTIME [facility] Administration Docusate Sodium 100 mg 09/23/20 10:45 10/10/20 09:25 Docusate Sodium 100 Mg Capsule PO 100 mg BID [facility]CIE Administration Guaifenesin/Dextromethorphan 10 ml 09/22/20 10:15 10/10/20 09:25 Guaifenesin Dm 100/10/5 Ml 5 Ml Syrup PO 10 ml Q6H [facility] Administration Insulin Glargine 8 unit 09/19/20 09:00 10/10/20 09:24 Insulin Glargine,Hum.Rec.Anlog 100 Unit/Ml 10 Ml Vial SUBCUT 8 unit DAILY [facility] Administration Insulin Human Lispro 0 unit 08/20/20 16:30 10/10/20 11:31 Insulin Lispro 100 Unit/Ml 3 Ml Vial SUBCUT 2 unit QIDACHS [facility] Administration Protocol Lidocaine HCl 15 ml 09/08/20 14:05 09/23/20 20:41 Lidocaine Hcl Viscous 2 % 15 Ml Solution MUCOUS MEM 15 ml Q3H PRN Administration oral pain Magnesium Hydroxide 30 ml 09/23/20 10:32 10/02/20 13:39 Milk Of Magnesia 30 Ml Oral.Susp PO 30 ml DAILY PRN Administration constipation Metoprolol Tartrate 25 mg 08/29/20 12:55 10/10/20 09:25 Metoprolol Tartrate 25 Mg Tablet PO 25 mg BID [facility] Administration Protocol Nystatin 1 appl 08/27/20 11:00 10/10/20 09:27 Nystatin Powder 15 Gm Bottle TOPICAL 1 appl BID [facility] Administration Protocol Nystatin 500,000 unit 09/23/20 13:00 10/10/20 13:04 Nystatin Oral Susp 500,000 Unit/5 Ml Oral.Susp PO 500,000 unit QID [facility] Administration Protocol Omeprazole 20 mg 09/19/20 06:30 10/10/20 05:47 Omeprazole 20 Mg Capsule.Dr PO 20 mg DAILY@0630 [facility] Administration Ondansetron HCl 4 mg 08/20/20 16:18 Ondansetron Hcl 4 Mg/2 Ml Vial IVPUSH Q8H PRN Nausea and Vomiting Sodium Chloride 3 ml 08/20/20 16:18 10/10/20 09:25 0.9 % Sodium Chloride Flush 3 Ml Syringe IVFLUSH 3 ml QSHIFT [facility] Administration Vitamin D 50 mcg 08/28/20 09:00 10/10/20 09:25 Cholecalciferol (Vitamin D3) 25 Mcg Tablet PO 50 mcg DAILY [facility] Administration Zinc Oxide 1 appl 09/07/20 10:47 09/28/20 23:07 Zinc Oxide (Triple Paste) 56.7 Gm Oint TOPICAL 1 appl QID PRN Administration SKIN BREAKDOWN/BUTTOCKS/PERINE Labs CBC & Chem 7: 10/07/20 09:58 10/07/20 09:58 Labs: Laboratory Results - last 24 hr 10/09/20 10/09/20 10/10/20 15:46 19:48 07:36 POC Glucose 159 H 188 H 115 10/10/20 11:17 POC Glucose 180 H Microbiology Microbiology Results: Microbiology 08/30/20 16:44 Blood - Venous Blood Culture - Final No growth after 5 days. 08/30/20 16:44 Blood - Venous Blood Culture - Final No growth after 5 days. 08/27/20 13:24 Blood - Venous Blood Culture - Final No growth after 5 days. 08/27/20 13:24 Blood - Venous Blood Culture - Final No growth after 5 days. 08/30/20 16:35 Sputum - Suctioned Gram Stain - Final 08/30/20 16:35 Sputum - Suctioned Sputum Culture - Final 08/20/20 10:59 Blood - Venous Blood Culture - Final No growth after 5 days. 08/20/20 10:55 Blood - Venous Blood Culture - Final No growth after 5 days. Assessment and Plan (1) Acute respiratory failure with hypoxia: Status: Acute (2) DVT, bilateral lower limbs: Status: Acute (3) Hypernatremia: Status: Acute (4) COVID-19: Status: Acute (5) Acute respiratory failure due to COVID-19: Status: Acute (6) HLD (hyperlipidemia): Status: Acute (7) HTN (hypertension): Status: Acute (8) T2DM (type 2 diabetes mellitus): Status: Acute (9) COPD (chronic obstructive pulmonary disease): Status: Acute Assessment and Plan: hospital d#52 79yo F with HTN, DM2, COPD admitted 08/20/20 for acute hypoxic respiratory failure due to COVID-19 (onset of symptoms 08/11/20, initial positive molecular test 08/14/20) to ICU 08/22/20 for ARDS BLE DVTs diagnosed 2/ DNR/DNI 09/02 IMC status 2/8 persistent severe hypoxia, dependent on HFNC + Venturi mask # acute hypoxic respiratory failure due to COVID-19 pneumonia - completed dexamethasone, presented out of resmdesivir window - gradually weaning supplemental O2 but still has very high requirements - repeat molecular test 10/06/20 negative, IgG 10/05/20 positive; does not, strictly speaking, require isolation precautions at this point; rather, she is being treated as a long-hauler # B DVTs - s/p therapeutic LMWH 1 mg/kg bid 08/29-09/21/20, now on apixaban 2.5mg bid, total duration 3 mo # DM2 - continue Lantus + correction-dose lispro # CAD - continue metoprolol, statin # HTN - continue metoprolol # fungal dermatitis - nystatin + Zn oxide # stage 2 sacral pressure ulcer - barrier cream to the area and foam dressing, continue to offload and rotate and reposition frequently and special air mattress etc. careful with moving pt in regards to dragging across sheet. # FEN # mild protein-calorie malnutrition - NDD2 regular diet, Glucerna tid # dispo - pending improvement in oxygenation - could be LTACH candidate but no bed available per
[2020-10-10 16:01] LABS: Glucose, Whole Blood 209 mg/dL (60-115)
[2020-10-10 19:55] LABS: Glucose, Whole Blood 175 mg/dL (60-115)
[2020-10-10] MEDS: Atorvastatin Calcium 20 MG TABLET PO (21:06)
[2020-10-11] VITALS (12 sets, daily range): BP systolic 98–115; BP diastolic 55–62; PULSE 80–111; RESP 18–32; TEMP 36.4–37.1; O2SAT 77–98
[2020-10-11] MEDS: guaiFENesin DM 100/10/5 ML 5 ML SYRUP 10 ML PO ×4 (03:49→20:51)
[2020-10-11] MEDS: Omeprazole 20 MG CAPSULE.DR PO (06:19)
[2020-10-11 07:26] LABS: Glucose, Whole Blood 128 mg/dL (60-115)
[2020-10-11] MEDS: Insulin Glargine,Hum.rec.anlog 100 UNIT/ML 10 ML VIAL 8 UNIT SUBCUT (08:32)
[2020-10-11] MEDS: Docusate Sodium 100 MG CAPSULE PO ×2 (08:32→20:47)
[2020-10-11] MEDS: Apixaban 2.5 MG TABLET PO ×2 (08:32→20:47)
[2020-10-11] MEDS: Nystatin Oral Susp 500,000 UNIT/5 ML ORAL.SUSP 500000 UNIT PO ×4 (08:32→20:46)
[2020-10-11] MEDS: Cholecalciferol (Vitamin D3) 25 MCG TABLET 50 MCG PO (08:32)
[2020-10-11] MEDS: Metoprolol Tartrate 25 MG TABLET PO ×2 (08:32→20:47)
[2020-10-11] MEDS: 0.9 % Sodium Chloride Flush 3 ML SYRINGE IVFLUSH ×2 (08:33→16:48)
[2020-10-11] MEDS: Nystatin Powder 15 GM BOTTLE 1 APPL TOPICAL ×2 (08:34→20:51)
[2020-10-11 11:18] LABS: Glucose, Whole Blood 183 mg/dL (60-115)
[2020-10-11] MEDS: Insulin Lispro 100 UNIT/ML 3 ML VIAL SUBCUT ×2 (11:36→20:46)
--- NOTE | 2020-10-11 11:45 | PC.NURSE ---
1115 Assisted patient out of bed to recliner using 2 max assist with a walker. Patient oxygen de-sated from 96 to 77. Took approximately 5 minutes for patient to recover and oxygen levels to increase to 87. Patient sating now at 90 on 15L via Diaz and 50% on Venti mask. Patient eating lunch now. Has no signs of respiratory distress. Patient has no further complaints.
--- NOTE | 2020-10-11 15:17 | P.PNIM_ITS ---
Subjective Subjective Date of Service: 10/11/20 Interval History: desaturated to 77% with sitting up in chair remains on 15L via Diaz device, 12L via Venti mask denies pain but c/o leg numbness Physical Exam Vital Signs: Vital Signs: Last Vital Signs Temp 98.4 F 10/11/20 11:49 Pulse 109 H 10/11/20 12:27 Resp 32 H 10/11/20 11:49 BP 111/62 10/11/20 12:27 Pulse Ox 89 L 10/11/20 12:27 Body Mass Index 27.3 Gen: mild respiratory distress HEENT: sclera anicteric, moist mucus membranes Neck: supple Lungs: tachypneic, no adventitious sounds Heart: regular rate and rhythm, no murmurs Abd: soft, non-tender, non-distended Ext: no edema Skin: warm/well-perfused, stage 2 sacral pressure ulcer Neuro: alert and oriented x3, no focal findings Psych: appropriate affect Objective Data Current Medications Generic Name Dose Route Start Last Admin Trade Name Caseq PRN Reason Stop Dose Admin Acetaminophen 650 mg 08/20/20 16:18 09/28/20 20:12 Acetaminophen 325 Mg Tablet PO 650 mg Q6H PRN Administration Pain, Mild (Pain Scale 1-3) Apixaban 2.5 mg 09/22/20 21:00 10/11/20 08:32 Apixaban 2.5 Mg Tablet PO 2.5 mg BID [facility]CIE Administration Atorvastatin Calcium 20 mg 10/08/20 21:00 10/10/20 21:06 Atorvastatin Calcium 20 Mg Tablet PO 20 mg BEDTIME [facility] Administration Docusate Sodium 100 mg 09/23/20 10:45 10/11/20 08:32 Docusate Sodium 100 Mg Capsule PO 100 mg BID [facility]CIE Administration Guaifenesin/Dextromethorphan 10 ml 09/22/20 10:15 10/11/20 09:21 Guaifenesin Dm 100/10/5 Ml 5 Ml Syrup PO 10 ml Q6H [facility]E Administration Insulin Glargine 8 unit 09/19/20 09:00 10/11/20 08:32 Insulin Glargine,Hum.Rec.Anlog 100 Unit/Ml 10 Ml Vial SUBCUT 8 unit DAILY [facility] Administration Insulin Human Lispro 0 unit 08/20/20 16:30 10/11/20 11:36 Insulin Lispro 100 Unit/Ml 3 Ml Vial SUBCUT 2 unit QIDACHS [facility] Administration Protocol Lidocaine HCl 15 ml 09/08/20 14:05 09/23/20 20:41 Lidocaine Hcl Viscous 2 % 15 Ml Solution MUCOUS MEM 15 ml Q3H PRN Administration oral pain Magnesium Hydroxide 30 ml 09/23/20 10:32 10/02/20 13:39 Milk Of Magnesia 30 Ml Oral.Susp PO 30 ml DAILY PRN Administration constipation Metoprolol Tartrate 25 mg 08/29/20 12:55 10/11/20 08:32 Metoprolol Tartrate 25 Mg Tablet PO 25 mg BID [facility] Administration Protocol Nystatin 1 appl 08/27/20 11:00 10/11/20 08:34 Nystatin Powder 15 Gm Bottle TOPICAL 1 appl BID [facility] Administration Protocol Nystatin 500,000 unit 09/23/20 13:00 10/11/20 13:57 Nystatin Oral Susp 500,000 Unit/5 Ml Oral.Susp PO 500,000 unit QID [facility] Administration Protocol Omeprazole 20 mg 09/19/20 06:30 10/11/20 06:19 Omeprazole 20 Mg Capsule. PO 20 mg DAILY@0630 [facility] Administration Ondansetron HCl 4 mg 08/20/20 16:18 Ondansetron Hcl 4 Mg/2 Ml Vial IVPUSH Q8H PRN Nausea and Vomiting Sodium Chloride 3 ml 08/20/20 16:18 10/11/20 08:33 0.9 % Sodium Chloride Flush 3 Ml Syringe IVFLUSH 3 ml QSHIFT [facility] Administration Vitamin D 50 mcg 08/28/20 09:00 10/11/20 08:32 Cholecalciferol (Vitamin D3) 25 Mcg Tablet PO 50 mcg DAILY [facility] Administration Zinc Oxide 1 appl 09/07/20 10:47 09/28/20 23:07 Zinc Oxide (Triple Paste) 56.7 Gm Oint TOPICAL 1 appl QID PRN Administration SKIN BREAKDOWN/BUTTOCKS/PERINE Labs CBC & Chem 7: 10/07/20 09:58 10/07/20 09:58 Labs: Laboratory Results - last 24 hr 10/10/20 10/10/20 10/11/20 15:57 19:51 07:22 POC Glucose 209 H 175 H 128 H 10/11/20 11:12 POC Glucose 183 H Microbiology Microbiology Results: Microbiology 08/30/20 16:44 Blood - Venous Blood Culture - Final No growth after 5 days. 08/30/20 16:44 Blood - Venous Blood Culture - Final No growth after 5 days. 08/27/20 13:24 Blood - Venous Blood Culture - Final No growth after 5 days. 08/27/20 13:24 Blood - Venous Blood Culture - Final No growth after 5 days. 08/30/20 16:35 Sputum - Suctioned Gram Stain - Final 08/30/20 16:35 Sputum - Suctioned Sputum Culture - Final 08/20/20 10:59 Blood - Venous Blood Culture - Final No growth after 5 days. 08/20/20 10:55 Blood - Venous Blood Culture - Final No growth after 5 days. Assessment and Plan (1) Acute respiratory failure with hypoxia: Status: Acute (2) DVT, bilateral lower limbs: Status: Acute (3) Hypernatremia: Status: Acute (4) COVID-19: Status: Acute (5) Acute respiratory failure due to COVID-19: Status: Acute (6) HLD (hyperlipidemia): Status: Acute (7) HTN (hypertension): Status: Acute (8) T2DM (type 2 diabetes mellitus): Status: Acute (9) COPD (chronic obstructive pulmonary disease): Status: Acute Assessment and Plan: hospital d#53 79yo F with HTN, DM2, COPD admitted 08/20/20 for acute hypoxic respiratory failure due to COVID-19 (onset of symptoms 08/11/20, initial positive molecular test 08/14/20) to ICU 08/22/20 for ARDS BLE DVTs diagnosed / DNR/DNI 09/02 IMC status 09/03 persistent severe hypoxia, dependent on HFNC + Venturi mask # acute hypoxic respiratory failure due to COVID-19 pneumonia - completed dexamethasone, presented out of resmdesivir window - gradually weaning supplemental O2 but still has very high requirements - repeat molecular test 10/06/20 negative, IgG 10/05/20 positive; does not, strictly speaking, require isolation precautions at this point; rather, she is being treated as a long-hauler # B DVTs - s/p therapeutic LMWH 1 mg/kg bid 08/29-09/21/20, now on apixaban 2.5mg bid, total duration 3 mo # DM2 - continue Lantus + correction-dose lispro # CAD - continue metoprolol, statin # HTN - continue metoprolol # fungal dermatitis - nystatin + Zn oxide # stage 2 sacral pressure ulcer - barrier cream to the area and foam dressing, continue to offload and rotate and reposition frequently and special air mattress etc. careful with moving pt in regards to dragging across sheet. # FEN # mild protein-calorie malnutrition - NDD2 regular diet, Glucerna tid # dispo - pending improvement in oxygenation - could be LTACH candidate but no bed available per CM
[2020-10-11 16:01] LABS: Glucose, Whole Blood 93 mg/dL (60-115)
[2020-10-11 19:44] LABS: Glucose, Whole Blood 168 mg/dL (60-115)
[2020-10-11] MEDS: Atorvastatin Calcium 20 MG TABLET PO (20:47)
[2020-10-12] VITALS (7 sets, daily range): BP systolic 110–132; BP diastolic 57–81; PULSE 83–120; RESP 18–32; TEMP 36.1–36.7; O2SAT 88–100
[2020-10-12] MEDS: 0.9 % Sodium Chloride Flush 3 ML SYRINGE IVFLUSH ×4 (00:31→20:52)
[2020-10-12] MEDS: Acetaminophen 325 MG TABLET 650 MG PO (05:02)
[2020-10-12] MEDS: guaiFENesin DM 100/10/5 ML 5 ML SYRUP 10 ML PO ×4 (05:02→20:51)
[2020-10-12] MEDS: Omeprazole 20 MG CAPSULE.DR PO (05:09)
[2020-10-12 07:34] LABS: Glucose, Whole Blood 97 mg/dL (60-115)
[2020-10-12 08:44] LABS: Hematocrit 34.2 % (37-47); Hemoglobin 10.1 g/dl (12.0-16.0); Mean Corpuscular HGB Conc 29.5 g/dl (31.0-35.0); Mean Corpuscular Hemoglobin 24.4 pg (27.0-33.0); Mean Corpuscular Volume 82.6 fL (80-98); Platelet Count 441 X10*3/uL (160-400); Red Blood Count 4.14 X10*6/uL (4.20-5.50); Red Cell Distribution Width 14.7 % (11.0-16.0); White Blood Count 15.7 X10*3/uL (4.8-10.8)
[2020-10-12 08:56] LABS: D Dimer 524 NG/ML
[2020-10-12 09:21] LABS: Alanine Aminotransferase < 6 U/L (0-31); Albumin Level 2.2 g/dL (3.5-5.0); Alkaline Phosphatase 98 U/L (39-117); Anion Gap 9 (12-20); Aspartate Amino Transferase 18 U/L (5-31); Bilirubin Direct 0.2 mg/dL (0.0-0.5); Bilirubin Total 0.6 mg/dL (0.0-1.0); Blood Urea Nitrogen 6 mg/dL (9-16); C Reactive Protein 3.12 mg/dL (< or = 0.50); Calcium 8.4 mg/dL (8.4-10.2); Carbon Dioxide 39 mmol/L (22-29); Chloride 97 mmol/L (96-108); Creatinine Clr Calc Pharmacy 88.5; Estimated Glomerular Filt Rate > 60; Glucose Random 104 mg/dL (60-115); Potassium 4.1 mmol/L (3.3-5.1); Sodium 141 mmol/L (135-145); Total Protein 5.8 g/dL (6.5-8.0)
[2020-10-12 09:35] LABS: Procalcitonin 0.03 ng/mL; SLIDE REVIEW MANUAL DIFF
[2020-10-12] MEDS: Insulin Glargine,Hum.rec.anlog 100 UNIT/ML 10 ML VIAL 8 UNIT SUBCUT (10:01)
[2020-10-12] MEDS: Docusate Sodium 100 MG CAPSULE PO ×2 (10:02→20:51)
[2020-10-12] MEDS: Apixaban 2.5 MG TABLET PO ×2 (10:02→20:51)
[2020-10-12] MEDS: Metoprolol Tartrate 25 MG TABLET PO ×2 (10:02→20:51)
[2020-10-12] MEDS: Nystatin Oral Susp 500,000 UNIT/5 ML ORAL.SUSP 500000 UNIT PO ×4 (10:03→20:51)
[2020-10-12] MEDS: Nystatin Powder 15 GM BOTTLE 1 APPL TOPICAL ×2 (10:06→20:53)
--- NOTE | 2020-10-12 10:07 | PM.EVENT ---
Event Note Date of Service: 10/12/20 Event Note: I saw this patient this morning for pulmonary consult and advice. She is now in the hospital almost for 2 months. History and course in the hospital is reviewed. Lab and radiologic findings rid review.
[2020-10-12 11:01] LABS: Atypical Lymph Absolute Manual 0.5 x10*3/uL; Atypical Lymphs Percent Manual 3 % (0-6); Lymphocytes Absolute Manual 7.1 X10*3/uL (0.6-4.8); Lymphocytes Percent Manual 45 % (20-40); Monocytes Absolute Manual 0.2 X10*3/uL (0.0-1.2); Monocytes Percent Manual 1 % (2-11); Neutrophils Percent Manual 51 % (45-73)
[2020-10-12 11:02] LABS: RBC Morphology NOTED
[2020-10-12 11:03] LABS: Hypochromasia 1+ (5-14) /OIF; Platelet Estimate SLIGHTLY INCREASED (NORMAL); Platelet Morphology Comment NORMAL; Polychromasia 1+ (0-2) /OIF; Smudge Cells PRESENT
[2020-10-12 11:04] LABS: Stomatocytes 1+ (5-14) /OIF
--- NOTE | 2020-10-12 11:07 | MHC.CM.PN ---
Patient is still requiring O2 at 12 liters NC with FIO2 at 50% venturi mask. Patient's discharge disposition is pending PT eval when patient is medically stable. CM will continue to follow patient for discharge needs.
[2020-10-12 11:19] LABS: Glucose, Whole Blood 293 mg/dL (60-115)
[2020-10-12 11:36] LABS: Band Neutrophils Percent 0 % (3-5)
[2020-10-12] MEDS: Insulin Lispro 100 UNIT/ML 3 ML VIAL SUBCUT ×3 (11:49→20:51)
--- NOTE | 2020-10-12 13:01 | HO.PM.IMPN ---
Subjective Subjective Date of Service: 10/12/20 Interval History: still hypoxic with minimal movement wants to get up and try walking but even getting her up to a chair requires 2-person assist and makes her SaO2 drop to the 70s no fever Physical Exam Vital Signs: Vital Signs: Last Vital Signs Temp 97.9 F 10/12/20 12:00 Pulse 109 H 10/12/20 12:00 Resp 32 H 10/12/20 12:00 BP 113/60 10/12/20 12:00 Pulse Ox 88 L 10/12/20 12:00 Body Mass Index 27.3 Gen: in no acute distress as long as she does not move HEENT: sclera anicteric, moist mucus membranes Neck: supple Lungs: diminished breath sounds bilaterally Heart: regular rate and rhythm, no murmurs Abd: soft, non-tender, non-distended Ext: no edema Skin: warm/well-perfused Neuro: alert and oriented x3, no focal findings Psych: appropriate affect Objective Data Current Medications Generic Name Dose Route Start Last Admin Trade Name Caseq PRN Reason Stop Dose Admin Acetaminophen 650 mg 08/20/20 16:18 10/12/20 05:02 Acetaminophen 325 Mg Tablet PO 650 mg Q6H PRN Administration Pain, Mild (Pain Scale 1-3) Apixaban 2.5 mg 09/22/20 21:00 10/12/20 10:02 Apixaban 2.5 Mg Tablet PO 2.5 mg BID [facility] Administration Atorvastatin Calcium 20 mg 10/08/20 21:00 10/11/20 20:47 Atorvastatin Calcium 20 Mg Tablet PO 20 mg BEDTIME [facility] Administration Docusate Sodium 100 mg 09/23/20 10:45 10/12/20 10:02 Docusate Sodium 100 Mg Capsule PO 100 mg BID [facility] Administration Guaifenesin/Dextromethorphan 10 ml 09/22/20 10:15 10/12/20 10:01 Guaifenesin Dm 100/10/5 Ml 5 Ml Syrup PO 10 ml Q6H [facility] Administration Insulin Glargine 8 unit 09/19/20 09:00 10/12/20 10:01 Insulin Glargine,Hum.Rec.Anlog 100 Unit/Ml 10 Ml Vial SUBCUT 8 unit DAILY [facility] Administration Insulin Human Lispro 0 unit 08/20/20 16:30 10/12/20 11:49 Insulin Lispro 100 Unit/Ml 3 Ml Vial SUBCUT 6 unit QIDACHS [facility] Administration Protocol Lidocaine HCl 15 ml 09/08/20 14:05 09/23/20 20:41 Lidocaine Hcl Viscous 2 % 15 Ml Solution MUCOUS MEM 15 ml Q3H PRN Administration oral pain Magnesium Hydroxide 30 ml 09/23/20 10:32 10/02/20 13:39 Milk Of Magnesia 30 Ml Oral.Susp PO 30 ml DAILY PRN Administration constipation Metoprolol Tartrate 25 mg 08/29/20 12:55 10/12/20 10:02 Metoprolol Tartrate 25 Mg Tablet PO 25 mg BID [facility] Administration Protocol Nystatin 1 appl 08/27/20 11:00 10/12/20 10:06 Nystatin Powder 15 Gm Bottle TOPICAL 1 appl BID [facility] Administration Protocol Nystatin 500,000 unit 09/23/20 13:00 10/12/20 10:03 Nystatin Oral Susp 500,000 Unit/5 Ml Oral.Susp PO 500,000 unit QID [facility] Administration Protocol Omeprazole 20 mg 09/19/20 06:30 10/12/20 05:09 Omeprazole 20 Mg Capsule. PO 20 mg DAILY@0630 [facility] Administration Ondansetron HCl 4 mg 08/20/20 16:18 Ondansetron Hcl 4 Mg/2 Ml Vial IVPUSH Q8H PRN Nausea and Vomiting Sodium Chloride 3 ml 08/20/20 16:18 10/12/20 10:03 0.9 % Sodium Chloride Flush 3 Ml Syringe IVFLUSH 3 ml QSHIFT [facility] Administration Vitamin D 50 mcg 08/28/20 09:00 10/12/20 10:03 Cholecalciferol (Vitamin D3) 25 Mcg Tablet PO Not Given DAILY [facility] Zinc Oxide 1 appl 09/07/20 10:47 09/28/20 23:07 Zinc Oxide (Triple Paste) 56.7 Gm Oint TOPICAL 1 appl QID PRN Administration SKIN BREAKDOWN/BUTTOCKS/PERINE Labs CBC & Chem 7: 10/12/20 08:21 10/12/20 08:21 Labs: Laboratory Results - last 24 hr 10/11/20 10/11/20 10/12/20 15:57 19:41 07:30 WBC RBC Hgb Hct MCV MCH MCHC RDW Plt Count MPV Immature Gran % (Auto) Neut % (Auto) Lymph % (Auto) [place] % (Auto) Eos % (Auto) Baso % (Auto) Lymph # (Auto) [place] # (Auto) Eos # (Auto) Baso # (Auto) Abs Immat Gran (auto) Absolute Neuts (auto) Absolute Nucleated RBC Nucleated RBC % (auto) Neutrophils % (Manual) Band Neutrophils % Lymphocytes % (Manual) Atypical Lymphs % (Man) Monocytes % (Manual) Abs Neuts (Manual) Lymphocytes # (Manual) Atyp Lymphs # (Manual) Monocytes # (Manual) Smudge Cells Platelet Estimate Plt Morphology Comment RBC Morphology Polychromasia Hypochromasia Stomatocytes Smear Tech's Comments D-Dimer Sodium Potassium Chloride Carbon Dioxide Anion Gap BUN Creatinine Estim Creat Clear Calc Estimated GFR POC Glucose 93 168 H 97 Random Glucose Calcium Total Bilirubin Direct Bilirubin AST ALT Alkaline Phosphatase C-Reactive Protein Total Protein Albumin Procalcitonin 10/12/20 10/12/20 10/12/20 08:21 08:21 08:21 WBC 15.7 H RBC 4.14 L Hgb 10.1 L Hct 34.2 L MCV 82.6 MCH 24.4 L MCHC 29.5 L RDW 14.7 Plt Count 441 H MPV 9.0 L Immature Gran % (Auto) Cancelled Neut % (Auto) Cancelled Lymph % (Auto) Cancelled [place] % (Auto) Cancelled Eos % (Auto) Cancelled Baso % (Auto) Cancelled Lymph # (Auto) Cancelled [place] # (Auto) Cancelled Eos # (Auto) Cancelled Baso # (Auto) Cancelled Abs Immat Gran (auto) Cancelled Absolute Neuts (auto) Cancelled Absolute Nucleated RBC 0.000 Nucleated RBC % (auto) 0.0 Neutrophils % (Manual) 51 Band Neutrophils % 0 L Lymphocytes % (Manual) 45 H Atypical Lymphs % (Man) 3 Monocytes % (Manual) 1 L Abs Neuts (Manual) 8.0 H Lymphocytes # (Manual) 7.1 H Atyp Lymphs # (Manual) 0.5 Monocytes # (Manual) 0.2 Smudge Cells PRESENT Platelet Estimate SLIGHTLY INCREASED Plt Morphology Comment NORMAL RBC Morphology NOTED Polychromasia 1+ (0-2) Hypochromasia 1+ (5-14) Stomatocytes 1+ (5-14) Smear Tech's Comments MANUAL DIFF D-Dimer Sodium 141 Potassium 4.1 Chloride 97 Carbon Dioxide 39 H Anion Gap 9 L BUN 6 L Creatinine 0.44 L Estim Creat Clear Calc 88.5 Estimated GFR > 60 POC Glucose Random Glucose 104 D Calcium 8.4 Total Bilirubin 0.6 Direct Bilirubin 0.2 AST 18 ALT < 6 Alkaline Phosphatase 98 C-Reactive Protein 3.12 H Total Protein 5.8 L Albumin 2.2 L Procalcitonin 0.03 10/12/20 10/12/20 08:21 11:15 WBC RBC Hgb Hct MCV MCH MCHC RDW Plt Count MPV Immature Gran % (Auto) Neut % (Auto) Lymph % (Auto) [place] % (Auto) Eos % (Auto) Baso % (Auto) Lymph # (Auto) [place] # (Auto) Eos # (Auto) Baso # (Auto) Abs Immat Gran (auto) Absolute Neuts (auto) Absolute Nucleated RBC Nucleated RBC % (auto) Neutrophils % (Manual) Band Neutrophils % Lymphocytes % (Manual) Atypical Lymphs % (Man) Monocytes % (Manual) Abs Neuts (Manual) Lymphocytes # (Manual) Atyp Lymphs # (Manual) Monocytes # (Manual) Smudge Cells Platelet Estimate Plt Morphology Comment RBC Morphology Polychromasia Hypochromasia Stomatocytes Smear Tech's Comments D-Dimer 524 Sodium Potassium Chloride Carbon Dioxide Anion Gap BUN Creatinine Estim Creat Clear Calc Estimated GFR POC Glucose 293 H Random Glucose Calcium Total Bilirubin Direct Bilirubin AST ALT Alkaline Phosphatase C-Reactive Protein Total Protein Albumin Procalcitonin Microbiology Microbiology Results: Microbiology 08/30/20 16:44 Blood - Venous Blood Culture - Final No growth after 5 days. 08/30/20 16:44 Blood - Venous Blood Culture - Final No growth after 5 days. 08/27/20 13:24 Blood - Venous Blood Culture - Final No growth after 5 days. 08/27/20 13:24 Blood - Venous Blood Culture - Final No growth after 5 days. 08/30/20 16:35 Sputum - Suctioned Gram Stain - Final 08/30/20 16:35 Sputum - Suctioned Sputum Culture - Final 08/20/20 10:59 Blood - Venous Blood Culture - Final No growth after 5 days. 08/20/20 10:55 Blood - Venous Blood Culture - Final No growth after 5 days. Assessment and Plan (1) Acute respiratory failure with hypoxia: Status: Acute (2) DVT, bilateral lower limbs: Status: Acute (3) Hypernatremia: Status: Acute (4) COVID-19: Status: Acute (5) Acute respiratory failure due to COVID-19: Status: Acute (6) HLD (hyperlipidemia): Status: Acute (7) HTN (hypertension): Status: Acute (8) T2DM (type 2 diabetes mellitus): Status: Acute (9) COPD (chronic obstructive pulmonary disease): Status: Acute Assessment and Plan: hospital d#54 79yo F with HTN, DM2, COPD admitted 08/20/20 for acute hypoxic respiratory failure due to COVID-19 (onset of symptoms 08/11/20, initial positive molecular test 08/14/20) to ICU 08/22/20 for ARDS BLE DVTs diagnosed 08/28 DNR/DNI 09/02 IMC status 09/03 persistent severe hypoxia, dependent on HFNC + Venturi mask # acute hypoxic respiratory failure due to COVID-19 pneumonia - completed dexamethasone, presented out of resmdesivir window - gradually weaning supplemental O2 but still has very high requirements - repeat molecular test 10/06/20 negative, IgG 10/05/20 positive; does not, strictly speaking, require isolation precautions at this point; rather, she is being treated as a long-hauler - inflammatory markers improved - per Pulmonology trial of short course of prednisone # B DVTs - s/p therapeutic LMWH 1 mg/kg bid 08/29-09/21/20, now on apixaban 2.5mg bid, total duration 3 mo - D-dimer improved # DM2 - continue Lantus + correction-dose lispro # CAD - continue metoprolol, statin # HTN - continue metoprolol # fungal dermatitis - nystatin + Zn oxide # stage 2 sacral pressure ulcer - barrier cream to the area and foam dressing, continue to offload and rotate and reposition frequently and special air mattress etc. careful with moving pt in regards to dragging across sheet. 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
[2020-10-12] MEDS: predniSONE 20 MG TABLET 40 MG PO (13:25)
[2020-10-12 16:10] LABS: Glucose, Whole Blood 279 mg/dL (60-115)
--- NOTE | 2020-10-12 17:13 | CONS_ITS ---
DATE OF SERVICE: 10/12/2020 HISTORY OF PRESENT ILLNESS: This patient is an 79-year-old female, who has been admitted to the hospital since 08/20/2020. She came with symptoms of increased shortness of breath for a few days with cough. The patient had a COVID-19 test as an outpatient on 08/14/2020, which was positive. Initially, she stayed at home, but came to the hospital on 08/20 because of increased shortness of breath and cough. The patient was noted to be in acute respiratory distress. CT scan of the chest showed bilateral interstitial lung disease. The Doppler ultrasound of the lower extremities showed bilateral DVT in calf veins. The patient was initially treated in the intensive care unit with a course of dexamethasone and oxygen supplements. She was not a candidate for remdesivir. After few days in the ICU, she was transferred to the intermediate care. She has gradually improved as far as her symptoms are concerned, however, she continues to require high level of oxygen with high-flow and also addition of a Ventimask, because it is almost 2 months and she is not making any big progress, so the Pulmonary consultation was requested for any additional advice. At the time of admission, her past medical history indicates that she does have chronic bronchial asthma and COPD. Her previous chest x-ray and CT scan do show that she has had underlying chronic interstitial lung disease in addition to COPD. The patient has history of smoking in the remote past, but quit many years ago. REVIEW OF SYSTEMS: Includes shortness of breath and generalized weakness with mild intermittent cough, which is nonproductive. She has chronic GERD symptoms and chronic hypertension, which is well controlled, and also has mild diabetes mellitus, otherwise not remarkable. PHYSICAL EXAMINATION: GENERAL: This 79-year-old female is of a thin build, lying down in the bed, very comfortable at this time. VITAL SIGNS: Respiratory rate is in mid 20s, but the respiratory efforts were feeble. THROAT: Clear. NECK: No JVD. Trachea midline. CHEST: Symmetrical. Percussion note resonant. She does have good breath sounds on both sides and a few inspiratory crackles are heard over the lower lobes. CARDIAC: Sounds are normal. No murmurs or gallops. ABDOMEN: Flat. No palpable mass. EXTREMITIES: No edema or varicosities. LABORATORY DATA: Last chest x-ray on 08/27/2020 shows changes of bilateral interstitial disease with faint alveolar opacities. CLINICAL IMPRESSION: 1. Status post acute COVID-19 disease. 2. Acute respiratory distress syndrome, secondary to above. 3. Continued significant interstitial/alveolar disease as late sequela of COVID-19 disease. 4. History of deep vein thrombosis in the calf veins, being treated with anticoagulation. RECOMMENDATIONS: I think patient will need to have high-intensity oxygen supplementation with high-flow and addition of Ventimask if needed. The goal should be O2 saturation of 90% to 92%. Empirically, we can try a short course of steroids to see if that would improve her V/Q abnormalities, so I suggest prednisone 40 mg daily for 5 days and then may be a slow taper for over the next 2 weeks. Continue anticoagulation as she is on already. Incentive spirometry to improve her ventilation. The addition of bronchodilators or inhaled steroids is probably not going to be of much help at this stage. Thank you very much for asking me to see this patient. MD ESTELA Estevez/SAVAGE / [phone]
[2020-10-12 20:05] LABS: Glucose, Whole Blood 271 mg/dL (60-115)
[2020-10-12] MEDS: Atorvastatin Calcium 20 MG TABLET PO (20:51)
[2020-10-13] VITALS (9 sets, daily range): BP systolic 94–130; BP diastolic 53–64; PULSE 82–118; RESP 18–22; TEMP 36–37; O2SAT 89–99
[2020-10-13] MEDS: guaiFENesin DM 100/10/5 ML 5 ML SYRUP 10 ML PO ×3 (03:28→20:40)
[2020-10-13] MEDS: Omeprazole 20 MG CAPSULE.DR PO (05:41)
[2020-10-13] MEDS: Insulin Lispro 100 UNIT/ML 3 ML VIAL SUBCUT ×4 (08:34→20:40)
[2020-10-13 08:35] LABS: Glucose, Whole Blood 220 mg/dL (60-115)
[2020-10-13] MEDS: Cholecalciferol (Vitamin D3) 25 MCG TABLET 50 MCG PO (09:51)
[2020-10-13] MEDS: Docusate Sodium 100 MG CAPSULE PO ×2 (09:51→20:40)
[2020-10-13] MEDS: Apixaban 2.5 MG TABLET PO ×2 (09:52→20:40)
[2020-10-13] MEDS: 0.9 % Sodium Chloride Flush 3 ML SYRINGE IVFLUSH ×2 (09:52→16:58)
[2020-10-13] MEDS: Metoprolol Tartrate 25 MG TABLET PO (09:52)
[2020-10-13] MEDS: Nystatin Powder 15 GM BOTTLE 1 APPL TOPICAL ×2 (09:52→20:41)
[2020-10-13] MEDS: Insulin Glargine,Hum.rec.anlog 100 UNIT/ML 10 ML VIAL 10 UNIT SUBCUT (09:52)
[2020-10-13] MEDS: predniSONE 20 MG TABLET 40 MG PO (09:54)
[2020-10-13 11:35] LABS: Glucose, Whole Blood 265 mg/dL (60-115)
[2020-10-13] MEDS: Nystatin Oral Susp 500,000 UNIT/5 ML ORAL.SUSP 500000 UNIT PO ×3 (12:12→20:40)
--- NOTE | 2020-10-13 14:05 | HO.PM.IMPN ---
Subjective Subjective Date of Service: 10/13/20 Interval History: Moved out of isolation. Hypoxic with any movement but sitting up in a chair. Physical Exam Vital Signs: Vital Signs: Last Vital Signs Temp 97.0 F 10/13/20 12:00 Pulse 92 10/13/20 12:00 Resp 20 10/13/20 12:00 BP 110/55 L 10/13/20 12:00 Pulse Ox 98 10/13/20 12:00 Body Mass Index 27.3 Gen: in no respiratory distress as long as she does not move HEENT: sclera anicteric, moist mucus membranes Neck: supple Lungs: diminished breath sounds bilaterally Heart: regular rate and rhythm, no murmurs Abd: soft, non-tender, non-distended Ext: no edema Skin: warm/well-perfused Neuro: alert and oriented x3, no focal findings Psych: appropriate affect Objective Data Current Medications Generic Name Dose Route Start Last Admin Trade Name Freq PRN Reason Stop Dose Admin Acetaminophen 650 mg 08/20/20 16:18 10/12/20 05:02 Acetaminophen 325 Mg Tablet PO 650 mg Q6H PRN Administration Pain, Mild (Pain Scale 1-3) Apixaban 2.5 mg 09/22/20 21:00 10/13/20 09:52 Apixaban 2.5 Mg Tablet PO 2.5 mg BID [facility] Administration Atorvastatin Calcium 20 mg 10/08/20 21:00 10/12/20 20:51 Atorvastatin Calcium 20 Mg Tablet PO 20 mg BEDTIME [facility] Administration Docusate Sodium 100 mg 09/23/20 10:45 10/13/20 09:51 Docusate Sodium 100 Mg Capsule PO 100 mg BID [facility] Administration Guaifenesin/Dextromethorphan 10 ml 09/22/20 10:15 10/13/20 11:42 Guaifenesin Dm 100/10/5 Ml 5 Ml Syrup PO Not Given Q6H [facility] Insulin Glargine 10 unit 10/13/20 09:00 10/13/20 09:52 Insulin Glargine,Hum.Rec.Anlog 100 Unit/Ml 10 Ml Vial SUBCUT 10 unit DAILY [facility] Administration Insulin Human Lispro 0 unit 08/20/20 16:30 10/13/20 12:11 Insulin Lispro 100 Unit/Ml 3 Ml Vial SUBCUT 6 unit QIDACHS [facility] Administration Protocol Lidocaine HCl 15 ml 09/08/20 14:05 09/23/20 20:41 Lidocaine Hcl Viscous 2 % 15 Ml Solution MUCOUS MEM 15 ml Q3H PRN Administration oral pain Magnesium Hydroxide 30 ml 09/23/20 10:32 10/02/20 13:39 Milk Of Magnesia 30 Ml Oral.Susp PO 30 ml DAILY PRN Administration constipation Metoprolol Tartrate 25 mg 08/29/20 12:55 10/13/20 09:52 Metoprolol Tartrate 25 Mg Tablet PO 25 mg BID [facility] Administration Protocol Nystatin 1 appl 08/27/20 11:00 10/13/20 09:52 Nystatin Powder 15 Gm Bottle TOPICAL 1 appl BID [facility] Administration Protocol Nystatin 500,000 unit 09/23/20 13:00 10/13/20 12:12 Nystatin Oral Susp 500,000 Unit/5 Ml Oral.Susp PO 500,000 unit QID [facility] Administration Protocol Omeprazole 20 mg 09/19/20 06:30 10/13/20 05:41 Omeprazole 20 Mg Capsule.Dr PO 20 mg DAILY@0630 [facility] Administration Ondansetron HCl 4 mg 08/20/20 16:18 Ondansetron Hcl 4 Mg/2 Ml Vial IVPUSH Q8H PRN Nausea and Vomiting Prednisone 40 mg 10/12/20 13:00 10/13/20 09:54 Prednisone 20 Mg Tablet PO 10/16/20 14:00 40 mg DAILY [facility] Administration Prednisone 20 mg 10/17/20 09:00 Prednisone 20 Mg Tablet PO 10/19/20 09:01 DAILY [facility] Prednisone 10 mg 10/20/20 09:00 Prednisone 10 Mg Tablet PO 10/22/20 09:01 DAILY [facility] Prednisone 5 mg 10/23/20 09:00 Prednisone 5 Mg Tablet PO 10/25/20 09:01 DAILY [facility] Sodium Chloride 3 ml 08/20/20 16:18 10/13/20 09:52 0.9 % Sodium Chloride Flush 3 Ml Syringe IVFLUSH 3 ml QSHIFT [facility] Administration Vitamin D 50 mcg 08/28/20 09:00 10/13/20 09:51 Cholecalciferol (Vitamin D3) 25 Mcg Tablet PO 50 mcg DAILY [facility] Administration Zinc Oxide 1 appl 09/07/20 10:47 09/28/20 23:07 Zinc Oxide (Triple Paste) 56.7 Gm Oint TOPICAL 1 appl QID PRN Administration SKIN BREAKDOWN/BUTTOCKS/PERINE Labs CBC & Chem 7: 10/12/20 08:21 10/12/20 08:21 Microbiology Microbiology Results: Microbiology 08/30/20 16:44 Blood - Venous Blood Culture - Final No growth after 5 days. 08/30/20 16:44 Blood - Venous Blood Culture - Final No growth after 5 days. 08/27/20 13:24 Blood - Venous Blood Culture - Final No growth after 5 days. 08/27/20 13:24 Blood - Venous Blood Culture - Final No growth after 5 days. 08/30/20 16:35 Sputum - Suctioned Gram Stain - Final 08/30/20 16:35 Sputum - Suctioned Sputum Culture - Final 08/20/20 10:59 Blood - Venous Blood Culture - Final No growth after 5 days. 08/20/20 10:55 Blood - Venous Blood Culture - Final No growth after 5 days. Assessment and Plan (1) Acute respiratory failure with hypoxia: Status: Acute (2) DVT, bilateral lower limbs: Status: Acute (3) Hypernatremia: Status: Acute (4) COVID-19: Status: Acute (5) Acute respiratory failure due to COVID-19: Status: Acute (6) HLD (hyperlipidemia): Status: Acute (7) HTN (hypertension): Status: Acute (8) T2DM (type 2 diabetes mellitus): Status: Acute (9) COPD (chronic obstructive pulmonary disease): Status: Acute Assessment and Plan: hospital d#55 79yo F with HTN, DM2, COPD admitted 08/20/20 for acute hypoxic respiratory failure due to COVID-19 (onset of symptoms 08/11/20, initial positive molecular test 08/14/20) to ICU 08/22/20 for ARDS BLE DVTs diagnosed 08/28 DNR/DNI 09/02 IMC status 09/03 persistent severe hypoxia, dependent on HFNC + Venturi mask # acute hypoxic respiratory failure due to COVID-19 pneumonia - completed dexamethasone, presented out of resmdesivir window - gradually weaning supplemental O2 but still has very high requirements - repeat molecular test 10/06/20 negative, IgG 10/05/20 positive; no longer needs isolation - inflammatory markers improved - per Pulmonology trial of short course of prednisone with taper- ordered # B DVTs - s/p therapeutic LMWH 1 mg/kg bid 08/29-09/21/20, now on apixaban 2.5mg bid, total duration 3 mo - D-dimer improved # DM2 - continue Lantus (increase dose for hyperglycemia) + correction-dose lispro # CAD - continue metoprolol, statin # HTN - continue metoprolol # fungal dermatitis - nystatin + Zn oxide # stage 2 sacral pressure ulcer - barrier cream to the area and foam dressing, continue to offload and rotate and reposition frequently and special air mattress etc. careful with moving pt in regards to dragging across sheet. # FEN # mild protein-calorie malnutrition - NDD2 regular diet, supplements, GROUT MACHINE TENDER re-evaluation # dispo - pending improvement in oxygenation - could be LTACH candidate but no bed available per CM
[2020-10-13 16:02] LABS: Glucose, Whole Blood 210 mg/dL (60-115)
[2020-10-13 20:15] LABS: Glucose, Whole Blood 406 mg/dL (60-115)
[2020-10-13] MEDS: Atorvastatin Calcium 20 MG TABLET PO (20:40)
[2020-10-14] VITALS (8 sets, daily range): BP systolic 102–122; BP diastolic 51–64; PULSE 77–123; RESP 18–20; TEMP 36.5–36.8; O2SAT 91–100
[2020-10-14] MEDS: 0.9 % Sodium Chloride Flush 3 ML SYRINGE IVFLUSH ×3 (00:30→16:46)
[2020-10-14] MEDS: guaiFENesin DM 100/10/5 ML 5 ML SYRUP 10 ML PO ×4 (04:35→20:28)
[2020-10-14 05:55] LABS: Venous Blood Gas Refer to POC result
[2020-10-14 05:56] LABS: VBG Base Excess 19.6 mmol/L; VBG HCO3 46 mmol/L (22-26); VBG pCO2 64 mmHg; VBG pH 7.46 (7.32-7.43); VBG pO2 63 mmHg
[2020-10-14] MEDS: Omeprazole 20 MG CAPSULE.DR PO (06:19)
[2020-10-14 06:27] LABS: Anion Gap 8 (12-20); Blood Urea Nitrogen 11 mg/dL (9-16); Calcium 8.3 mg/dL (8.4-10.2); Carbon Dioxide 38 mmol/L (22-29); Chloride 97 mmol/L (96-108); Creatinine Clr Calc Pharmacy 82.8; Estimated Glomerular Filt Rate > 60; Glucose Random 240 mg/dL (60-115); Magnesium 1.8 mg/dL (1.6-2.6); Potassium 3.7 mmol/L (3.3-5.1); Sodium 139 mmol/L (135-145)
[2020-10-14 07:19] LABS: Glucose, Whole Blood 227 mg/dL (60-115)
[2020-10-14] MEDS: Insulin Glargine,Hum.rec.anlog 100 UNIT/ML 10 ML VIAL 12 UNIT SUBCUT (08:55)
[2020-10-14] MEDS: Insulin Lispro 100 UNIT/ML 3 ML VIAL SUBCUT ×4 (08:56→21:08)
[2020-10-14] MEDS: Nystatin Oral Susp 500,000 UNIT/5 ML ORAL.SUSP 500000 UNIT PO ×4 (10:01→20:28)
[2020-10-14] MEDS: Cholecalciferol (Vitamin D3) 25 MCG TABLET 50 MCG PO (10:01)
[2020-10-14] MEDS: Apixaban 2.5 MG TABLET PO ×2 (10:01→20:28)
[2020-10-14] MEDS: predniSONE 20 MG TABLET 40 MG PO (10:01)
[2020-10-14] MEDS: Docusate Sodium 100 MG CAPSULE PO ×2 (10:01→20:28)
[2020-10-14] MEDS: Metoprolol Tartrate 25 MG TABLET PO ×2 (10:02→20:28)
[2020-10-14] MEDS: Nystatin Powder 15 GM BOTTLE 1 APPL TOPICAL ×2 (10:02→20:29)
[2020-10-14 11:01] LABS: Glucose, Whole Blood 247 mg/dL (60-115)
--- NOTE | 2020-10-14 12:16 | HO.PM.IMPN ---
Subjective Subjective Date of Service: 10/14/20 Interval History: very slowly improving no cough BG elevated c/o bilateral leg numbness but has good strength in the legs Physical Exam Vital Signs: Vital Signs: Last Vital Signs Temp 97.8 F 10/14/20 11:36 Pulse 80 10/14/20 11:36 Resp 20 10/14/20 11:36 BP 102/51 L 10/14/20 11:36 Pulse Ox 96 10/14/20 11:36 Body Mass Index 27.3 Gen: in no respiratory distress as long as she does not move HEENT: sclera anicteric, moist mucus membranes Neck: supple Lungs: diminished breath sounds bilaterally Heart: regular rate and rhythm, no murmurs Abd: soft, non-tender, non-distended Ext: no edema Skin: warm/well-perfused Neuro: alert and oriented x3, no focal findings Psych: appropriate affect Objective Data Current Medications Generic Name Dose Route Start Last Admin Trade Name Freq PRN Reason Stop Dose Admin Acetaminophen 650 mg 08/20/20 16:18 10/12/20 05:02 Acetaminophen 325 Mg Tablet PO 650 mg Q6H PRN Administration Pain, Mild (Pain Scale 1-3) Apixaban 2.5 mg 09/22/20 21:00 10/14/20 10:01 Apixaban 2.5 Mg Tablet PO 2.5 mg BID LUCIE Administration Atorvastatin Calcium 20 mg 10/08/20 21:00 10/13/20 20:40 Atorvastatin Calcium 20 Mg Tablet PO 20 mg BEDTIME LUCIE Administration Docusate Sodium 100 mg 09/23/20 10:45 10/14/20 10:01 Docusate Sodium 100 Mg Capsule PO 100 mg BID LUCIE Administration Guaifenesin/Dextromethorphan 10 ml 09/22/20 10:15 10/14/20 10:02 Guaifenesin Dm 100/10/5 Ml 5 Ml Syrup PO 10 ml Q6H LUCIE Administration Insulin Glargine 12 unit 10/14/20 09:00 10/14/20 08:55 Insulin Glargine,Hum.Rec.Anlog 100 Unit/Ml 10 Ml Vial SUBCUT 12 unit DAILY [facility]CIE Administration Insulin Human Lispro 0 unit 08/20/20 16:30 10/14/20 12:03 Insulin Lispro 100 Unit/Ml 3 Ml Vial SUBCUT 5 unit QIDACHS [facility]CIE Administration Protocol Lidocaine HCl 15 ml 09/08/20 14:05 09/23/20 20:41 Lidocaine Hcl Viscous 2 % 15 Ml Solution MUCOUS MEM 15 ml Q3H PRN Administration oral pain Magnesium Hydroxide 30 ml 09/23/20 10:32 10/02/20 13:39 Milk Of Magnesia 30 Ml Oral.Susp PO 30 ml DAILY PRN Administration constipation Metoprolol Tartrate 25 mg 08/29/20 12:55 10/14/20 10:02 Metoprolol Tartrate 25 Mg Tablet PO 25 mg BID LUCIE Administration Protocol Nystatin 1 appl 08/27/20 11:00 10/14/20 10:02 Nystatin Powder 15 Gm Bottle TOPICAL 1 appl BID [facility] Administration Protocol Nystatin 500,000 unit 09/23/20 13:00 10/14/20 10:01 Nystatin Oral Susp 500,000 Unit/5 Ml Oral.Susp PO 500,000 unit QID [facility] Administration Protocol Omeprazole 20 mg 09/19/20 06:30 10/14/20 06:19 Omeprazole 20 Mg Capsule. PO 20 mg DAILY@0630 [facility] Administration Ondansetron HCl 4 mg 08/20/20 16:18 Ondansetron Hcl 4 Mg/2 Ml Vial IVPUSH Q8H PRN Nausea and Vomiting Prednisone 40 mg 10/12/20 13:00 10/14/20 10:01 Prednisone 20 Mg Tablet PO 10/16/20 14:00 40 mg DAILY [facility] Administration Prednisone 20 mg 10/17/20 09:00 Prednisone 20 Mg Tablet PO 10/19/20 09:01 DAILY [facility] Prednisone 10 mg 10/20/20 09:00 Prednisone 10 Mg Tablet PO 10/22/20 09:01 DAILY [facility] Prednisone 5 mg 10/23/20 09:00 Prednisone 5 Mg Tablet PO 10/25/20 09:01 DAILY [facility] Sodium Chloride 3 ml 08/20/20 16:18 10/14/20 10:01 0.9 % Sodium Chloride Flush 3 Ml Syringe IVFLUSH 3 ml QSHIFT [facility] Administration Vitamin D 50 mcg 08/28/20 09:00 10/14/20 10:01 Cholecalciferol (Vitamin D3) 25 Mcg Tablet PO 50 mcg DAILY [facility] Administration Zinc Oxide 1 appl 09/07/20 10:47 09/28/20 23:07 Zinc Oxide (Triple Paste) 56.7 Gm Oint TOPICAL 1 appl QID PRN Administration SKIN BREAKDOWN/BUTTOCKS/PERINE Labs CBC & Chem 7: 10/12/20 08:21 10/14/20 05:43 Labs: Laboratory Results - last 24 hr 10/13/20 10/13/20 10/14/20 15:58 20:11 05:43 VBG pH VBG pCO2 VBG pO2 VBG HCO3 VBG O2 Saturation VBG Base Excess Sodium 139 Potassium 3.7 Chloride 97 Carbon Dioxide 38 H Anion Gap 8 L BUN 11 D Creatinine 0.47 L Estim Creat Clear Calc 82.8 Estimated GFR > 60 POC Glucose 210 H 406 H* Random Glucose 240 H D Calcium 8.3 L Magnesium 1.8 10/14/20 10/14/20 10/14/20 05:49 07:04 10:54 VBG pH 7.46 H VBG pCO2 64 VBG pO2 63 VBG HCO3 46 H VBG O2 Saturation 91.0 VBG Base Excess 19.6 Sodium Potassium Chloride Carbon Dioxide Anion Gap BUN Creatinine Estim Creat Clear Calc Estimated GFR POC Glucose 227 H 247 H Random Glucose Calcium Magnesium Microbiology Microbiology Results: Microbiology 08/30/20 16:44 Blood - Venous Blood Culture - Final No growth after 5 days. 08/30/20 16:44 Blood - Venous Blood Culture - Final No growth after 5 days. 08/27/20 13:24 Blood - Venous Blood Culture - Final No growth after 5 days. 08/27/20 13:24 Blood - Venous Blood Culture - Final No growth after 5 days. 08/30/20 16:35 Sputum - Suctioned Gram Stain - Final 08/30/20 16:35 Sputum - Suctioned Sputum Culture - Final 08/20/20 10:59 Blood - Venous Blood Culture - Final No growth after 5 days. 08/20/20 10:55 Blood - Venous Blood Culture - Final No growth after 5 days. Assessment and Plan (1) Acute respiratory failure with hypoxia: Status: Acute (2) DVT, bilateral lower limbs: Status: Acute (3) Hypernatremia: Status: Acute (4) COVID-19: Status: Acute (5) Acute respiratory failure due to COVID-19: Status: Acute (6) HLD (hyperlipidemia): Status: Acute (7) HTN (hypertension): Status: Acute (8) T2DM (type 2 diabetes mellitus): Status: Acute (9) COPD (chronic obstructive pulmonary disease): Status: Acute Assessment and Plan: hospital d#56 79yo F with HTN, DM2, COPD, CAD admitted 08/20/20 for acute hypoxic respiratory failure due to COVID-19 (onset of symptoms 08/11/20, initial positive molecular test 08/14/20) to ICU 08/22/20 for ARDS BLE DVTs diagnosed 08/28 DNR/DNI 09/02 IMC status 09/03 persistent severe hypoxia, dependent on HFNC + Venturi mask # acute hypoxic respiratory failure due to COVID-19 pneumonia - completed dexamethasone, presented out of resmdesivir window - gradually weaning supplemental O2- currently on 10L via Diaz device and 10L via Venti mask - repeat molecular test 10/06/20 negative, IgG 10/05/20 positive; taken off of isolation - inflammatory markers improved - per Pulmonology trial of short course of prednisone with taper- ordered for 10/12-10/25/20 # B DVTs - s/p therapeutic LMWH 1 mg/kg bid 08/29-09/21/20, now on apixaban 2.5mg bid, total duration 3 mo - D-dimer improving # DM2, A1c 8.4 (06/20/20) with hyperglycemia - continue Lantus (increased dosea) + correction-dose lispro (increased sliding scale) # CAD - continue metoprolol, statin # HTN - continue metoprolol # fungal dermatitis - nystatin + Zn oxide # stage 2 sacral pressure ulcer - barrier cream to the area and foam dressing, continue to offload and rotate and reposition frequently and special air mattress etc. careful with moving pt in regards to dragging across sheet. # FEN # mild protein-calorie malnutrition - NDD2 regular diet, supplements, FIRST OFFICER re-evaluation # dispo - pending improvement in oxygenation - could be LTACH candidate but no bed available per CM
[2020-10-14 16:20] LABS: Glucose, Whole Blood 228 mg/dL (60-115)
--- NOTE | 2020-10-14 17:27 | PC.NURSE ---
1600- Pt's O2 levels have been 97-100% most of day on 9L Diaz cannula and 45% venti mask. Per respiratory recommend attempting to take venti mask off. Venti mask removed, pt initially sating 82-85%, Diaz increased to 12L. Pt O2 improved to 88-93%. Dr. Kwok updated. Encouraged to keep pt only on Diaz cannula and maintain O2 level above 89%. 1730- Pt O2 95% on 12L Diaz cannula. No signs of respiratory distress. Pt visiting with family, comfortable has no complaints at this time.
[2020-10-14] MEDS: Atorvastatin Calcium 20 MG TABLET PO (20:28)
[2020-10-14 20:36] LABS: Glucose, Whole Blood 334 mg/dL (60-115)
[2020-10-15] VITALS (7 sets, daily range): BP systolic 91–120; BP diastolic 55–61; PULSE 76–95; RESP 18–22; TEMP 36.4–36.8; O2SAT 90–100
[2020-10-15] MEDS: 0.9 % Sodium Chloride Flush 3 ML SYRINGE IVFLUSH ×4 (00:09→21:56)
[2020-10-15] MEDS: guaiFENesin DM 100/10/5 ML 5 ML SYRUP 10 ML PO ×4 (04:18→21:56)
[2020-10-15] MEDS: Omeprazole 20 MG CAPSULE.DR PO (06:22)
[2020-10-15 07:57] LABS: Glucose, Whole Blood 138 mg/dL (60-115)
--- NOTE | 2020-10-15 09:30 | MHC.SLORD ---
TREE AND [employer] TECHNICIAN checked in with RN this morning. Pt is tolerating baseline diet of ground/mech solids and thin liquids without difficulty. Continue to recommend GROUND/MECH (NDD2) solids and THIN liquids with PILLS CRUSHED or WHOLE in PUREE depending on pt's tolerance/preference. Total supervision and universal aspiration precautions apply. Dysphagia therapy no longer warranted, as pt is tolerating baseline diet. Please re-refer if pt's condition changes or if TREE AND SHRUB TECHNICIAN can be of further assistance. Name: Ana Varghese Date of : 1940 Age: 79 Date of Registration: 08/20/20 Speech Language Pathology Order Status:
[2020-10-15] MEDS: Nystatin Oral Susp 500,000 UNIT/5 ML ORAL.SUSP 500000 UNIT PO ×4 (09:44→20:21)
[2020-10-15] MEDS: Nystatin Powder 15 GM BOTTLE 1 APPL TOPICAL ×2 (09:45→20:32)
[2020-10-15] MEDS: predniSONE 20 MG TABLET 40 MG PO (09:45)
[2020-10-15] MEDS: Insulin Glargine,Hum.rec.anlog 100 UNIT/ML 10 ML VIAL 12 UNIT SUBCUT (09:46)
[2020-10-15] MEDS: Metoprolol Tartrate 25 MG TABLET PO ×2 (09:47→20:22)
[2020-10-15] MEDS: Cholecalciferol (Vitamin D3) 25 MCG TABLET 50 MCG PO (09:47)
[2020-10-15] MEDS: Apixaban 2.5 MG TABLET PO ×2 (09:47→20:22)
[2020-10-15] MEDS: Docusate Sodium 100 MG CAPSULE PO ×2 (09:47→20:21)
--- NOTE | 2020-10-15 11:37 | MHC.CM.PN ---
CM met with patient with a interpreter to get choice for STR. Patient prefers we speak with her dtr Jenna. CM spoke with patient's dtr, choices are Lucy, [facility], [facility] and Russ Mcguire. referrals placed via allscripts. CM will continue to follow patient for discharge needs.
[2020-10-15 11:50] LABS: Glucose, Whole Blood 358 mg/dL (60-115)
[2020-10-15] MEDS: Insulin Lispro 100 UNIT/ML 3 ML VIAL SUBCUT ×3 (12:43→20:22)
--- NOTE | 2020-10-15 13:07 | MHC.CLN ---
F/U PO INTAKE 50% AVG DIET RX; GRD/M/S -APPROPRIATE (continue per family educator) PT RECEIVES ENSURE BID, PROSOURCE BID AND BELEM PROVIDES 980KCALS (80% EST KCALS NEEDS), 75G PROTEIN (109% EST PROTEIN NEEDS) PT IS RECEIVING MAXIMUM PO NUTRITION SUPPORT FOLLOWING
--- NOTE | 2020-10-15 14:51 | P.PNIM_ITS ---
Subjective Subjective Date of Service: 10/15/20 Interval History: the patient was seen and evaluated this morning Laying in bed, feels comfortable Denies any fever, chills or shortness of breath No reported other overnight events. Systemic review: No fever, chills or weakness No chest pain, palpitation No shortness of breath or coughing but still requiring 12 L of oxygen No abdominal pain, nausea or vomiting No urinary symptoms No any rash or wounds Physical Exam Vital Signs: Vital Signs: Last Vital Signs Temp 98.0 F 10/15/20 12:00 Pulse 90 10/15/20 12:00 Resp 22 H 10/15/20 12:00 BP 115/56 L 10/15/20 12:00 Pulse Ox 90 L 10/15/20 08:00 Body Mass Index 27.3 Const: Other: Constitutional : Alert, oriented, not in distress Neck : Normal inspection, Supple Cardiovascular : RRR, S1 S2, no lower extremity edema Respiratory : Good bilateral air entry, no crackles, wheezes or rhonchi Gastrointestinal: soft, lax, Normal bowel sounds, Non tender Skin : Warm/Dry, No rash Neurological : Alert & oriented to self, No focal deficit Objective Data Current Medications Generic Name Dose Route Start Last Admin Trade Name Freq PRN Reason Stop Dose Admin Acetaminophen 650 mg 08/20/20 16:18 10/12/20 05:02 Acetaminophen 325 Mg Tablet PO 650 mg Q6H PRN Administration Pain, Mild (Pain Scale 1-3) Apixaban 2.5 mg 09/22/20 21:00 10/15/20 09:47 Apixaban 2.5 Mg Tablet PO 2.5 mg BID LUCIE Administration Atorvastatin Calcium 20 mg 10/08/20 21:00 10/14/20 20:28 Atorvastatin Calcium 20 Mg Tablet PO 20 mg BEDTIME LUCIE Administration Docusate Sodium 100 mg 09/23/20 10:45 10/15/20 09:47 Docusate Sodium 100 Mg Capsule PO 100 mg BID LUCIE Administration Guaifenesin/Dextromethorphan 10 ml 09/22/20 10:15 10/15/20 09:44 Guaifenesin Dm 100/10/5 Ml 5 Ml Syrup PO 10 ml Q6H [facility]CIE Administration Insulin Glargine 12 unit 10/14/20 09:00 10/15/20 09:46 Insulin Glargine,Hum.Rec.Anlog 100 Unit/Ml 10 Ml Vial SUBCUT 12 unit DAILY [facility] Administration Insulin Human Lispro 0 unit 08/20/20 16:30 10/15/20 12:43 Insulin Lispro 100 Unit/Ml 3 Ml Vial SUBCUT 12 unit QIDACHS [facility] Administration Protocol Lidocaine HCl 15 ml 09/08/20 14:05 09/23/20 20:41 Lidocaine Hcl Viscous 2 % 15 Ml Solution MUCOUS MEM 15 ml Q3H PRN Administration oral pain Magnesium Hydroxide 30 ml 09/23/20 10:32 10/02/20 13:39 Milk Of Magnesia 30 Ml Oral.Susp PO 30 ml DAILY PRN Administration constipation Metoprolol Tartrate 25 mg 08/29/20 12:55 10/15/20 09:47 Metoprolol Tartrate 25 Mg Tablet PO 25 mg BID [facility] Administration Protocol Nystatin 1 appl 08/27/20 11:00 10/15/20 09:45 Nystatin Powder 15 Gm Bottle TOPICAL 1 appl BID [facility] Administration Protocol Nystatin 500,000 unit 09/23/20 13:00 10/15/20 12:43 Nystatin Oral Susp 500,000 Unit/5 Ml Oral.Susp PO 500,000 unit QID [facility] Administration Protocol Omeprazole 20 mg 09/19/20 06:30 10/15/20 06:22 Omeprazole 20 Mg Capsule. PO 20 mg DAILY@0630 [facility] Administration Ondansetron HCl 4 mg 08/20/20 16:18 Ondansetron Hcl 4 Mg/2 Ml Vial IVPUSH Q8H PRN Nausea and Vomiting Prednisone 40 mg 10/12/20 13:00 10/15/20 09:45 Prednisone 20 Mg Tablet PO 10/16/20 14:00 40 mg DAILY [facility] Administration Prednisone 20 mg 10/17/20 09:00 Prednisone 20 Mg Tablet PO 10/19/20 09:01 DAILY [facility] Prednisone 10 mg 10/20/20 09:00 Prednisone 10 Mg Tablet PO 10/22/20 09:01 DAILY [facility] Prednisone 5 mg 10/23/20 09:00 Prednisone 5 Mg Tablet PO 10/25/20 09:01 DAILY [facility] Sodium Chloride 3 ml 08/20/20 16:18 10/15/20 09:46 0.9 % Sodium Chloride Flush 3 Ml Syringe IVFLUSH 3 ml QSHIFT [facility] Administration Vitamin D 50 mcg 08/28/20 09:00 10/15/20 09:47 Cholecalciferol (Vitamin D3) 25 Mcg Tablet PO 50 mcg DAILY [facility] Administration Zinc Oxide 1 appl 09/07/20 10:47 09/28/20 23:07 Zinc Oxide (Triple Paste) 56.7 Gm Oint TOPICAL 1 appl QID PRN Administration SKIN BREAKDOWN/BUTTOCKS/PERINE Labs CBC & Chem 7: 10/12/20 08:21 10/14/20 05:43 Microbiology Microbiology Results: Microbiology 08/30/20 16:44 Blood - Venous Blood Culture - Final No growth after 5 days. 08/30/20 16:44 Blood - Venous Blood Culture - Final No growth after 5 days. 08/27/20 13:24 Blood - Venous Blood Culture - Final No growth after 5 days. 08/27/20 13:24 Blood - Venous Blood Culture - Final No growth after 5 days. 08/30/20 16:35 Sputum - Suctioned Gram Stain - Final 08/30/20 16:35 Sputum - Suctioned Sputum Culture - Final 08/20/20 10:59 Blood - Venous Blood Culture - Final No growth after 5 days. 08/20/20 10:55 Blood - Venous Blood Culture - Final No growth after 5 days. Assessment and Plan (1) Acute respiratory failure with hypoxia: Status: Acute (2) DVT, bilateral lower limbs: Status: Acute (3) Hypernatremia: Status: Acute (4) COVID-19: Status: Acute (5) Acute respiratory failure due to COVID-19: Status: Acute (6) HLD (hyperlipidemia): Status: Acute (7) HTN (hypertension): Status: Acute (8) T2DM (type 2 diabetes mellitus): Status: Acute (9) COPD (chronic obstructive pulmonary disease): Status: Acute Assessment and Plan: hospital d#57 79yo F with HTN, DM2, COPD, CAD admitted 08/20/20 for acute hypoxic respiratory failure due to COVID-19 (onset of symptoms 08/11/20, initial positive molecular t est 08/14/20) to ICU 08/22/20 for ARDS BLE. DVTs diagnosed 2/2 DNR/DNI 09/02 IMC status 28 persistent severe hypoxia # acute hypoxic respiratory failure due to COVID-19 pneumonia completed dexamethasone, presented out of resmdesivir window gradually weaning supplemental O2- currently on 12L via Diaz device and 10L via Venti mask repeat molecular test 10/06/20 negative, IgG 10/05/20 positive; taken off of isolation inflammatory markers improved per Pulmonology trial of short course of prednisone with taper- ordered for 10/12-10/25/20 # DVTs s/p therapeutic LMWH 1 mg/kg bid 08/29-09/21/20, now on apixaban 2.5mg bid, total duration 3 mo D-dimer improving # DM2, A1c 8.4 (06/20/20) with hyperglycemia continue Lantus (increased dosea) + correction-dose lispro (increased sliding scale) # CAD continue metoprolol, statin # HTN continue metoprolol # fungal dermatitis nystatin + Zn oxide # stage 2 sacral pressure ulcer barrier cream to the area and foam dressing, continue to offload and rotate and reposition frequently and special air mattress etc. careful with moving pt in regards to dragging across sheet. 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
[2020-10-15 16:19] LABS: Glucose, Whole Blood 315 mg/dL (60-115)
[2020-10-15 20:10] LABS: Glucose, Whole Blood 315 mg/dL (60-115)
[2020-10-15] MEDS: Atorvastatin Calcium 20 MG TABLET PO (20:21)
[2020-10-16] VITALS (9 sets, daily range): BP systolic 106–114; BP diastolic 56–64; PULSE 86–103; RESP 18; TEMP 36.4–37.1; O2SAT 91–99
[2020-10-16] MEDS: guaiFENesin DM 100/10/5 ML 5 ML SYRUP 10 ML PO ×4 (05:00→20:26)
[2020-10-16 07:14] LABS: Glucose, Whole Blood 137 mg/dL (60-115)
[2020-10-16] MEDS: predniSONE 20 MG TABLET 40 MG PO (08:09)
[2020-10-16] MEDS: Insulin Glargine,Hum.rec.anlog 100 UNIT/ML 10 ML VIAL 12 UNIT SUBCUT (08:09)
[2020-10-16] MEDS: Insulin Lispro 100 UNIT/ML 3 ML VIAL SUBCUT ×4 (08:09→20:18)
[2020-10-16] MEDS: Nystatin Powder 15 GM BOTTLE 1 APPL TOPICAL ×2 (08:10→20:23)
[2020-10-16] MEDS: Cholecalciferol (Vitamin D3) 25 MCG TABLET 50 MCG PO (08:10)
[2020-10-16] MEDS: Nystatin Oral Susp 500,000 UNIT/5 ML ORAL.SUSP 500000 UNIT PO ×4 (08:10→20:18)
[2020-10-16] MEDS: Apixaban 2.5 MG TABLET PO ×2 (08:10→20:18)
[2020-10-16] MEDS: 0.9 % Sodium Chloride Flush 3 ML SYRINGE IVFLUSH ×3 (08:10→23:07)
[2020-10-16] MEDS: Metoprolol Tartrate 25 MG TABLET PO ×2 (08:10→20:18)
[2020-10-16] MEDS: Docusate Sodium 100 MG CAPSULE PO ×2 (08:10→20:18)
--- NOTE | 2020-10-16 09:54 | PM.PNPUL ---
Subjective Subjective Date of Service: 10/16/20 Interval history: The patient was seen on exam. Last night she had difficulty breathing. She had to go on a Ventimask along with her nasal cannula. She was feeling better this morning. She does have significant secretions. She is still on 40 mg of prednisone. She is also getting cough syrup. Objective Data Labs CBC & Chem 7: 10/12/20 08:21 10/14/20 05:43 Labs: Laboratory Results - last 24 hr 10/15/20 10/15/20 10/15/20 11:46 16:07 19:57 POC Glucose 358 H* 315 H 315 H 10/16/20 07:03 POC Glucose 137 H Microbiology Microbiology Results: Microbiology 08/30/20 16:44 Blood - Venous Blood Culture - Final No growth after 5 days. 08/30/20 16:44 Blood - Venous Blood Culture - Final No growth after 5 days. 08/27/20 13:24 Blood - Venous Blood Culture - Final No growth after 5 days. 08/27/20 13:24 Blood - Venous Blood Culture - Final No growth after 5 days. 08/30/20 16:35 Sputum - Suctioned Gram Stain - Final 08/30/20 16:35 Sputum - Suctioned Sputum Culture - Final 08/20/20 10:59 Blood - Venous Blood Culture - Final No growth after 5 days. 08/20/20 10:55 Blood - Venous Blood Culture - Final No growth after 5 days. Review of Systems Review of Systems Yes all other systems are reviewed and are negative Constitutional: Denies chills and Denies fever(s) Cardiovascular: Denies chest pain and Reports dyspnea Respiratory: Reports cough and Reports dyspnea Gastrointestinal: Denies abdominal pain Musculoskeletal: Reports muscle weakness Physical Exam Vital Signs: Vital Signs: Last Vital Signs Temp 98.8 F 10/16/20 07:28 Pulse 103 H 10/16/20 08:10 Resp 18 10/16/20 07:28 BP 106/56 L 10/16/20 08:10 Pulse Ox 91 L 10/16/20 07:28 Body Mass Index 27.3 Const: General: alert HENMT: General nose exam: Abnormal external nose present Neck: Neck: Yes normal visual inspection, Yes full ROM and Yes no lymphadenopathy Chest: Chest palpation & inspection: normal inspection of the chest Resp: Auscultation: diminished lung sounds Cardio: Rate: regular rate Rhythm: regular rhythm Heart sounds: S1 normal heart sound present and S2 normal heart sound present GI: Palpation (GI): Soft to palpation Auscultation: normal bowel sounds : General: Yes no CVA tenderness Back/Spine/Pelvis: Back: no CVA tenderness Skin: General skin exam: rashes and/or lesions noted Assessment and Plan Assessment and plan (1) COVID-19: Status: Acute (2) Acute respiratory failure due to COVID-19: Status: Acute (3) COPD (chronic obstructive pulmonary disease): Status: Acute Assessment and Plan: Respiratory therapy with nebs Add Azithromycin Lasix iv x 1 Cough syrup OOB to chair Slow Prednisone taper Time Spent With Patient Time: Total time spent is greater than 50% in coordination of care (as documented) at patient's floor/unit and/or counseling patient: Time with patient: 15 - 24 minutes
[2020-10-16 11:09] LABS: Glucose, Whole Blood 119 mg/dL (60-115)
[2020-10-16] MEDS: Furosemide 20 MG/2 ML VIAL IVPUSH (11:18)
[2020-10-16] MEDS: Albuterol/Iprat 2.5/0.5MG 3 ML AMPUL.NEB INHALE ×2 (13:06→19:56)
--- NOTE | 2020-10-16 15:41 | P.PNIM_ITS ---
Subjective Subjective Date of Service: 10/16/20 Interval History: the patient was seen and evaluated this morning Laying in bed, feels comfortable Denies any fever, chills or shortness of breath No reported other overnight events. Systemic review: No fever, chills or weakness No chest pain, palpitation No shortness of breath or coughing but still requiring 12 L of oxygen No abdominal pain, nausea or vomiting No urinary symptoms No any rash or wounds Physical Exam Vital Signs: Vital Signs: Last Vital Signs Temp 98.0 F 10/16/20 15: Pulse 100 10/16/20 15:23 Resp 18 10/16/20 15:23 BP 113/56 L 10/16/20 15: Pulse Ox 96 10/16/20 15: Body Mass Index 27.3 Const: Other: Constitutional : Alert, oriented, not in distress Neck : Normal inspection, Supple Cardiovascular : RRR, S1 S2, no lower extremity edema Respiratory : Good bilateral air entry, no crackles, wheezes or rhonchi Gastrointestinal: soft, lax, Normal bowel sounds, Non tender Skin : Warm/Dry, No rash Neurological : Alert & oriented to self, No focal deficit Objective Data Current Medications Generic Name Dose Route Start Last Admin Trade Name Freq PRN Reason Stop Dose Admin Acetaminophen 650 mg 08/20/20 16:18 10/12/20 05:02 Acetaminophen 325 Mg Tablet PO 650 mg Q6H PRN Administration Pain, Mild (Pain Scale 1-3) Albuterol/Ipratropium 3 ml 10/16/20 14:00 10/16/20 13:06 Albuterol/Iprat 2.5/0.5mg 3 Ml Ampul.Neb INHALE 3 ml RQ6H WHILE AWAKE LUCIE Administration Apixaban 2.5 mg 09/22/20 21:00 10/16/20 08:10 Apixaban 2.5 Mg Tablet PO 2.5 mg BID LUCIE Administration Atorvastatin Calcium 20 mg 10/08/20 21:00 10/15/20 20:21 Atorvastatin Calcium 20 Mg Tablet PO 20 mg BEDTIME LUCIE Administration Azithromycin 250 mg 10/16/20 10:00 10/16/20 11:18 Azithromycin 600 Mg/15 Ml Bottle PO 250 mg DAILY LUCIE Administration Docusate Sodium 100 mg 09/23/20 10:45 10/16/20 08:10 Docusate Sodium 100 Mg Capsule PO 100 mg BID LUCIE Administration Guaifenesin/Dextromethorphan 10 ml 09/22/20 10:15 10/16/20 11:18 Guaifenesin Dm 100/10/5 Ml 5 Ml Syrup PO 10 ml Q6H [facility] Administration Insulin Glargine 12 unit 10/14/20 09:00 10/16/20 08:09 Insulin Glargine,Hum.Rec.Anlog 100 Unit/Ml 10 Ml Vial SUBCUT 12 unit DAILY [facility]1983 Administration Insulin Human Lispro 0 unit 08/20/20 16:30 10/16/20 11:18 Insulin Lispro 100 Unit/Ml 3 Ml Vial SUBCUT 1 unit QIDACHS [facility]1983 Administration Protocol Lidocaine HCl 15 ml 09/08/20 14:05 09/23/20 20:41 Lidocaine Hcl Viscous 2 % 15 Ml Solution MUCOUS MEM 15 ml Q3H PRN Administration oral pain Magnesium Hydroxide 30 ml 09/23/20 10:32 10/02/20 13:39 Milk Of Magnesia 30 Ml Oral.Susp PO 30 ml DAILY PRN Administration constipation Metoprolol Tartrate 25 mg 08/29/20 12:55 10/16/20 08:10 Metoprolol Tartrate 25 Mg Tablet PO 25 mg BID [facility]1983 Administration Protocol Nystatin 1 appl 08/27/20 11:00 10/16/20 08:10 Nystatin Powder 15 Gm Bottle TOPICAL 1 appl BID [facility]1983 Administration Protocol Nystatin 500,000 unit 09/23/20 13:00 10/16/20 14:24 Nystatin Oral Susp 500,000 Unit/5 Ml Oral.Susp PO 500,000 unit QID [facility] Administration Protocol Omeprazole 20 mg 09/19/20 06:30 10/16/20 06:17 Omeprazole 20 Mg Capsule.Dr PO Not Given DAILY@0630 [facility] Ondansetron HCl 4 mg 08/20/20 16:18 Ondansetron Hcl 4 Mg/2 Ml Vial IVPUSH Q8H PRN Nausea and Vomiting Prednisone 20 mg 10/17/20 09:00 Prednisone 20 Mg Tablet PO 10/19/20 09:01 DAILY [facility] Prednisone 10 mg 10/20/20 09:00 Prednisone 10 Mg Tablet PO 10/22/20 09:01 DAILY [facility] Prednisone 5 mg 10/23/20 09:00 Prednisone 5 Mg Tablet PO 10/25/20 09:01 DAILY [facility]1983 Sodium Chloride 3 ml 08/20/20 16:18 10/16/20 08:10 0.9 % Sodium Chloride Flush 3 Ml Syringe IVFLUSH 3 ml QSHIFT LUCIE Administration Vitamin D 50 mcg 08/28/20 09:00 10/16/20 08:10 Cholecalciferol (Vitamin D3) 25 Mcg Tablet PO 50 mcg DAILY LUCIE Administration Zinc Oxide 1 appl 09/07/20 10:47 09/28/20 23:07 Zinc Oxide (Triple Paste) 56.7 Gm Oint TOPICAL 1 appl QID PRN Administration SKIN BREAKDOWN/BUTTOCKS/PERINE Labs CBC & Chem 7: 10/12/20 08:21 10/14/20 05:43 Microbiology Microbiology Results: Microbiology 08/30/20 16:44 Blood - Venous Blood Culture - Final No growth after 5 days. 08/30/20 16:44 Blood - Venous Blood Culture - Final No growth after 5 days. 08/27/20 13:24 Blood - Venous Blood Culture - Final No growth after 5 days. 08/27/20 13:24 Blood - Venous Blood Culture - Final No growth after 5 days. 08/30/20 16:35 Sputum - Suctioned Gram Stain - Final 08/30/20 16:35 Sputum - Suctioned Sputum Culture - Final 08/20/20 10:59 Blood - Venous Blood Culture - Final No growth after 5 days. 08/20/20 10:55 Blood - Venous Blood Culture - Final No growth after 5 days. Assessment and Plan (1) Acute respiratory failure with hypoxia: Status: Acute (2) DVT, bilateral lower limbs: Status: Acute (3) Hypernatremia: Status: Acute (4) COVID-19: Status: Acute (5) Acute respiratory failure due to COVID-19: Status: Acute (6) HLD (hyperlipidemia): Status: Acute (7) HTN (hypertension): Status: Acute (8) T2DM (type 2 diabetes mellitus): Status: Acute (9) COPD (chronic obstructive pulmonary disease): Status: Acute Assessment and Plan: hospital d#58 79yo F with HTN, DM2, COPD, CAD admitted 08/20/20 for acute hypoxic respiratory failure due to COVID-19 (onset of symptoms 08/11/20, initial positive molecular test 08/14/20) to ICU 08/22/20 for ARDS BLE. DVTs diagnosed 2/2 DNR/DNI 09/02 IMC status 2/8 persistent severe hypoxia # acute hypoxic respiratory failure due to COVID-19 pneumonia completed dexamethasone, presented out of resmdesivir window gradually weaning supplemental O2- currently on 12L via Diaz device and 10L via Venti mask repeat molecular test 10/06/20 negative, IgG 10/05/20 positive; taken off of isolation inflammatory markers improved per Pulmonology trial of short course of prednisone with taper- ordered for 10/12-10/25/20 # DVTs s/p therapeutic LMWH 1 mg/kg bid 08/29-09/21/20, now on apixaban 2.5mg bid, total duration 3 mo D-dimer improving # DM2, A1c 8.4 (06/20/20) with hyperglycemia continue Lantus (increased dosea) + correction-dose lispro (increased sliding scale) # CAD continue metoprolol, statin # HTN continue metoprolol # fungal dermatitis nystatin + Zn oxide # stage 2 sacral pressure ulcer barrier cream to the area and foam dressing, continue to offload and rotate and reposition frequently and special air mattress etc. careful with moving pt in regards to dragging across sheet. # FEN # mild protein-calorie malnutrition NDD2 regular diet, supplements, [employer] re-evaluation # dispo pending improvement in oxygenation could be LTACH candidate
[2020-10-16 16:16] LABS: Glucose, Whole Blood 437 mg/dL (60-115)
[2020-10-16 16:16] LABS: Glucose, Whole Blood 398 mg/dL (60-115)
[2020-10-16 20:14] LABS: Glucose, Whole Blood 335 mg/dL (60-115)
[2020-10-16] MEDS: Atorvastatin Calcium 20 MG TABLET PO (20:18)
[2020-10-17] VITALS (12 sets, daily range): BP systolic 102–129; BP diastolic 53–69; PULSE 79–113; RESP 17–22; TEMP 36.3–36.9; O2SAT 95–100
[2020-10-17] MEDS: guaiFENesin DM 100/10/5 ML 5 ML SYRUP 10 ML PO ×4 (05:38→21:49)
[2020-10-17] MEDS: Omeprazole 20 MG CAPSULE.DR PO (05:38)
[2020-10-17 07:27] LABS: Glucose, Whole Blood 165 mg/dL (60-115)
[2020-10-17] MEDS: Albuterol/Iprat 2.5/0.5MG 3 ML AMPUL.NEB INHALE ×3 (07:47→20:34)
[2020-10-17] MEDS: Insulin Lispro 100 UNIT/ML 3 ML VIAL SUBCUT ×5 (08:10→21:49)
[2020-10-17] MEDS: Insulin Glargine,Hum.rec.anlog 100 UNIT/ML 10 ML VIAL 15 UNIT SUBCUT (08:11)
[2020-10-17] MEDS: Cholecalciferol (Vitamin D3) 25 MCG TABLET 50 MCG PO (08:12)
[2020-10-17] MEDS: Docusate Sodium 100 MG CAPSULE PO ×2 (08:14→21:50)
[2020-10-17] MEDS: Apixaban 2.5 MG TABLET PO ×2 (08:15→21:50)
[2020-10-17] MEDS: Nystatin Oral Susp 500,000 UNIT/5 ML ORAL.SUSP 500000 UNIT PO ×4 (08:16→21:50)
[2020-10-17] MEDS: predniSONE 20 MG TABLET PO (08:16)
[2020-10-17] MEDS: Metoprolol Tartrate 25 MG TABLET PO ×2 (08:23→21:54)
--- NOTE | 2020-10-17 09:27 | PM.PNPUL ---
Subjective Subjective Date of Service: 10/17/20 Interval history: The patient was seen on exam. She did receive the Lasix yesterday. Feels a little better today. Volume status appears to be euvolemic at this time. No additional Lasix is warranted. 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 On a prednisone taper. Her last echocardiogram was back in August demonstrating no evidence of any pulmonary hypertension. Objective Data Labs CBC & Chem 7: 10/12/20 08:21 10/14/20 05:43 Labs: Laboratory Results - last 24 hr 10/16/20 10/16/20 10/16/20 10:59 16:01 16:03 POC Glucose 119 H 437 H* 398 H* 10/16/20 10/17/20 20:11 07:19 POC Glucose 335 H 165 H Microbiology Microbiology Results: Microbiology 08/30/20 16:44 Blood - Venous Blood Culture - Final No growth after 5 days. 08/30/20 16:44 Blood - Venous Blood Culture - Final No growth after 5 days. 08/27/20 13:24 Blood - Venous Blood Culture - Final No growth after 5 days. 08/27/20 13:24 Blood - Venous Blood Culture - Final No growth after 5 days. 08/30/20 16:35 Sputum - Suctioned Gram Stain - Final 08/30/20 16:35 Sputum - Suctioned Sputum Culture - Final 08/20/20 10:59 Blood - Venous Blood Culture - Final No growth after 5 days. 08/20/20 10:55 Blood - Venous Blood Culture - Final No growth after 5 days. Review of Systems Review of Systems Yes all other systems are reviewed and are negative Constitutional: Denies chills and Denies fever(s) Cardiovascular: Denies chest pain and Reports dyspnea Respiratory: Reports cough and Reports dyspnea Gastrointestinal: Denies abdominal pain Musculoskeletal: Reports muscle weakness Physical Exam Vital Signs: Vital Signs: Last Vital Signs Temp 97.6 F 10/17/20 07:47 Pulse 96 10/17/20 08:23 Resp 22 H 10/17/20 07:47 BP 103/56 L 10/17/20 08:23 Pulse Ox 97 10/17/20 07:47 Body Mass Index 27.3 Const: General: alert Neck: Neck: Yes normal visual inspection, Yes full ROM and Yes no lymphadenopathy Chest: Chest palpation & inspection: normal inspection of the chest Resp: Auscultation: rales and diminished lung sounds Cardio: Rate: regular rate Rhythm: regular rhythm Heart sounds: S1 normal heart sound present and S2 normal heart sound present GI: Palpation (GI): Soft to palpation and nontender Auscultation: normal bowel sounds Skin: General skin exam: rashes and/or lesions noted Assessment and Plan Assessment and plan (1) ARDS (adult respiratory distress syndrome): Status: Acute (2) Acute respiratory failure with hypoxia: Status: Acute (3) Angina pectoris: Status: Acute (4) COPD (chronic obstructive pulmonary disease): Status: Acute Assessment and Plan: Continue respiratory therapy Requesting an Oxymizer pendant for the patient at this time Prednisone taper Out of bed to chair as tolerated Awaiting bed availability at LTAC Time Spent With Patient Time: Total time spent is greater than 50% in coordination of care (as documented) at patient's floor/unit and/or counseling patient: Time with patient: 15 - 24 minutes
[2020-10-17] MEDS: 0.9 % Sodium Chloride Flush 3 ML SYRINGE IVFLUSH ×3 (10:32→21:55)
[2020-10-17 11:26] LABS: Glucose, Whole Blood 455 mg/dL (60-115)
--- NOTE | 2020-10-17 13:18 | MHC.CLN ---
F/U PO INTAKE IMPROVED 75% AVG X3DAYS DIET RX; GRD/M/S -APPROPRIATE (continue per cloth examiner hand) PT RECEIVES ENSURE BID, PROSOURCE BID AND BELEM PROVIDES 980KCALS (80% EST KCALS NEEDS), 75G PROTEIN (109% EST PROTEIN NEEDS) PT IS RECEIVING MAXIMUM PO NUTRITION SUPPORT FOLLOWING
--- NOTE | 2020-10-17 13:44 | MHC.CM.PN ---
Patient is requiring O2 at 15 liters NC with FIO2 at 45% venturi mask for +COVID. Now on PO Prednisone and PO Zithromax. Discharge plan is [facility] (on wait list) or [facility] if O2 needs decrease. Patient will need BLS transport. CM will continue to follow patient for discharge needs.
[2020-10-17] MEDS: Nystatin Powder 15 GM BOTTLE 1 APPL TOPICAL ×2 (14:48→21:55)
--- NOTE | 2020-10-17 14:51 | HO.PM.IMPN ---
Subjective Subjective Date of Service: 10/17/20 Interval History: the patient was seen and evaluated this morning Laying in bed, feels comfortable Still on high oxygen requirement of nasal cannula and Venturi mask Denies any fever, chills or shortness of breath No reported other overnight events. Systemic review: No fever, chills or weakness No chest pain, palpitation No shortness of breath or coughing but still requiring high supplement of oxygen No abdominal pain, nausea or vomiting No urinary symptoms No any rash or wounds Physical Exam Vital Signs: Vital Signs: Last Vital Signs Temp 98.4 F 10/17/20 12:00 Pulse 113 H 10/17/20 12:00 Resp 20 10/17/20 12:00 BP 108/57 L 10/17/20 12:00 Pulse Ox 95 10/17/20 12:00 Body Mass Index 27.3 Const: Other: Constitutional : Alert, oriented, not in distress Neck : Normal inspection, Supple Cardiovascular : RRR, S1 S2, no lower extremity edema Respiratory : Good bilateral air entry, no crackles, wheezes or rhonchi Gastrointestinal: soft, lax, Normal bowel sounds, Non tender Skin : Warm/Dry, No rash Neurological : Alert & oriented to self, No focal deficit Objective Data Current Medications Generic Name Dose Route Start Last Admin Trade Name Freq PRN Reason Stop Dose Admin Acetaminophen 650 mg 08/20/20 16:18 10/12/20 05:02 Acetaminophen 325 Mg Tablet PO 650 mg Q6H PRN Administration Pain, Mild (Pain Scale 1-3) Albuterol/Ipratropium 3 ml 10/16/20 14:00 10/17/20 07:47 Albuterol/Iprat 2.5/0.5mg 3 Ml Ampul.Neb INHALE 3 ml RQ6H WHILE AWAKE LUCIE Administration Apixaban 2.5 mg 09/22/20 21:00 10/17/20 08:15 Apixaban 2.5 Mg Tablet PO 2.5 mg BID LUCIE Administration Atorvastatin Calcium 20 mg 10/08/20 21:00 10/16/20 20:18 Atorvastatin Calcium 20 Mg Tablet PO 20 mg BEDTIME LUCIE Administration Azithromycin 250 mg 10/16/20 10:00 10/17/20 10:32 Azithromycin 600 Mg/15 Ml Bottle PO 250 mg DAILY LUCIE Administration Docusate Sodium 100 mg 09/23/20 10:45 10/17/20 08:14 Docusate Sodium 100 Mg Capsule PO 100 mg BID LUCIE Administration Guaifenesin/Dextromethorphan 10 ml 09/22/20 10:15 10/17/20 11:56 Guaifenesin Dm 100/10/5 Ml 5 Ml Syrup PO 10 ml Q6H LUCIE Administration Insulin Glargine 15 unit 10/17/20 09:00 10/17/20 08:11 Insulin Glargine,Hum.Rec.Anlog 100 Unit/Ml 10 Ml Vial SUBCUT 15 unit DAILY LUCIE Administration Insulin Human Lispro 0 unit 08/20/20 16:30 10/17/20 11:49 Insulin Lispro 100 Unit/Ml 3 Ml Vial SUBCUT 12 unit QIDACHS PENDING SALE TO [facility] Administration Protocol Lidocaine HCl 15 ml 09/08/20 14:05 09/23/20 20:41 Lidocaine Hcl Viscous 2 % 15 Ml Solution MUCOUS MEM 15 ml Q3H PRN Administration oral pain Magnesium Hydroxide 30 ml 09/23/20 10:32 10/02/20 13:39 Milk Of Magnesia 30 Ml Oral.Susp PO 30 ml DAILY PRN Administration constipation Metoprolol Tartrate 25 mg 08/29/20 12:55 10/17/20 08:23 Metoprolol Tartrate 25 Mg Tablet PO 25 mg BID [facility]ENDING [facility] TO [facility] Administration Protocol Nystatin 1 appl 08/27/20 11:00 10/17/20 14:48 Nystatin Powder 15 Gm Bottle TOPICAL 1 appl BID PENDING S[facility] TO [facility] Administration Protocol Nystatin 500,000 unit 09/23/20 13:00 10/17/20 14:48 Nystatin Oral Susp 500,000 Unit/5 Ml Oral.Susp PO 500,000 unit QID PENDING S[facility] TO [facility] Administration Protocol Omeprazole 20 mg 09/19/20 06:30 10/17/20 05:38 Omeprazole 20 Mg Capsule. PO 20 mg DAILY@0630 PENDING [facility] TO [facility] Administration Ondansetron HCl 4 mg 08/20/20 16:18 Ondansetron Hcl 4 Mg/2 Ml Vial IVPUSH Q8H PRN Nausea and Vomiting Prednisone 20 mg 10/17/20 09:00 10/17/20 08:16 Prednisone 20 Mg Tablet PO 10/19/20 09:01 20 mg DAILY LUCIE Administration Prednisone 10 mg 10/20/20 09:00 Prednisone 10 Mg Tablet PO 10/22/20 09:01 DAILY PENDING SALE TO [facility] Prednisone 5 mg 10/23/20 09:00 Prednisone 5 Mg Tablet PO 04/01/21 09:01 DAILY PENDING SALE TO [facility] Sodium Chloride 3 ml 08/20/20 16:18 10/17/20 10:32 0.9 % Sodium Chloride Flush 3 Ml Syringe IVFLUSH 3 ml QSHIFT PENDING [facility] TO [facility] Administration Vitamin D 50 mcg 08/28/20 09:00 10/17/20 08:12 Cholecalciferol (Vitamin D3) 25 Mcg Tablet PO 50 mcg DAILY LUCIE Administration Zinc Oxide 1 appl 09/07/20 10:47 09/28/20 23:07 Zinc Oxide (Triple Paste) 56.7 Gm Oint TOPICAL 1 appl QID PRN Administration SKIN BREAKDOWN/BUTTOCKS/PERINE Labs CBC & Chem 7: 10/12/20 08:21 10/14/20 05:43 Microbiology Microbiology Results: Microbiology 08/30/20 16:44 Blood - Venous Blood Culture - Final No growth after 5 days. 08/30/20 16:44 Blood - Venous Blood Culture - Final No growth after 5 days. 08/27/20 13:24 Blood - Venous Blood Culture - Final No growth after 5 days. 08/27/20 13:24 Blood - Venous Blood Culture - Final No growth after 5 days. 08/30/20 16:35 Sputum - Suctioned Gram Stain - Final 08/30/20 16:35 Sputum - Suctioned Sputum Culture - Final 08/20/20 10:59 Blood - Venous Blood Culture - Final No growth after 5 days. 08/20/20 10:55 Blood - Venous Blood Culture - Final No growth after 5 days. Assessment and Plan (1) Acute respiratory failure with hypoxia: Status: Acute (2) DVT, bilateral lower limbs: Status: Acute (3) Hypernatremia: Status: Acute (4) COVID-19: Status: Acute (5) Acute respiratory failure due to COVID-19: Status: Acute (6) HLD (hyperlipidemia): Status: Acute (7) HTN (hypertension): Status: Acute (8) T2DM (type 2 diabetes mellitus): Status: Acute (9) COPD (chronic obstructive pulmonary disease): Status: Acute Assessment and Plan: hospital d#59 79yo F with HTN, DM2, COPD, CAD admitted 08/20/20 for acute hypoxic respiratory failure due to COVID-19 (onset of symptoms 08/11/20, initial positive molecular test 08/14/20) to ICU 08/22/20 for ARDS BLE. DVTs diagnosed 08/28 DNR/DNI 09/02 IMC status 09/03 repeat molecular test 10/06/20 negative, IgG 10/05/20 positive; taken off of isolation persistent severe hypoxia # acute hypoxic respiratory failure due to COVID-19 pneumonia Finished primary treatment for COVID-19 infection gradually weaning supplemental O2- currently on 12L via Diaz device and 15L via Venti mask per Pulmonology trial of short course of prednisone with taper- ordered for 10/12-10/25/20 # DVTs s/p therapeutic LMWH 1 mg/kg bid 08/29-09/21/20, now on apixaban 2.5mg bid, total duration 3 mo D-dimer improving # DM2, A1c 8.4 (06/20/20) with hyperglycemia continue Lantus (increased dosea) + correction-dose lispro (increased sliding scale) # CAD continue metoprolol, statin # HTN continue metoprolol # fungal dermatitis nystatin + Zn oxide # stage 2 sacral pressure ulcer barrier cream to the area and foam dressing, continue to offload and rotate and reposition frequently and special air mattress etc. careful with moving pt in regards to dragging across sheet. # FEN # mild protein-calorie malnutrition NDD2 regular diet, supplements, [employer] re-evaluation # dispo pending improvement in oxygenation could be LTACH candidate
[2020-10-17 16:20] LABS: Glucose, Whole Blood 153 mg/dL (60-115)
[2020-10-17 20:33] LABS: Glucose, Whole Blood 363 mg/dL (60-115)
[2020-10-17] MEDS: Atorvastatin Calcium 20 MG TABLET PO (21:50)
[2020-10-18] VITALS (11 sets, daily range): BP systolic 102–124; BP diastolic 56–68; PULSE 77–110; RESP 18–20; TEMP 36.2–36.9; O2SAT 90–100
[2020-10-18] MEDS: guaiFENesin DM 100/10/5 ML 5 ML SYRUP 10 ML PO ×4 (03:34→20:29)
[2020-10-18] MEDS: Omeprazole 20 MG CAPSULE.DR PO (05:31)
[2020-10-18 07:25] LABS: Glucose, Whole Blood 155 mg/dL (60-115)
[2020-10-18] MEDS: Docusate Sodium 100 MG CAPSULE PO ×2 (08:16→20:30)
[2020-10-18] MEDS: Metoprolol Tartrate 25 MG TABLET PO ×2 (08:16→20:30)
[2020-10-18] MEDS: Cholecalciferol (Vitamin D3) 25 MCG TABLET 50 MCG PO (08:16)
[2020-10-18] MEDS: Nystatin Oral Susp 500,000 UNIT/5 ML ORAL.SUSP 500000 UNIT PO ×4 (08:16→20:30)
[2020-10-18] MEDS: Apixaban 2.5 MG TABLET PO ×2 (08:16→20:30)
[2020-10-18] MEDS: Insulin Glargine,Hum.rec.anlog 100 UNIT/ML 10 ML VIAL 15 UNIT SUBCUT (08:17)
[2020-10-18] MEDS: predniSONE 20 MG TABLET PO (08:17)
[2020-10-18] MEDS: Insulin Lispro 100 UNIT/ML 3 ML VIAL SUBCUT ×5 (08:18→20:31)
[2020-10-18] MEDS: 0.9 % Sodium Chloride Flush 3 ML SYRINGE IVFLUSH ×2 (08:18→16:32)
[2020-10-18] MEDS: Nystatin Powder 15 GM BOTTLE 1 APPL TOPICAL ×2 (08:21→20:30)
[2020-10-18] MEDS: Albuterol/Iprat 2.5/0.5MG 3 ML AMPUL.NEB INHALE ×3 (08:35→20:02)
[2020-10-18 11:07] LABS: Glucose, Whole Blood 254 mg/dL (60-115)
--- NOTE | 2020-10-18 11:59 | PM.PNPUL ---
Subjective Subjective Date of Service: 10/18/20 Interval history: The patient was seen on exam. Still on a Ventimask and nasal cannula. Has been responding well to the nebulized therapy. At this point she has significant pulmonary fibrosis from her pneumonitis/ JUAN MANUEL from the COVID-19 infection. Will try to wean her oxygen understanding that her parameters will be lower. Objective Data Labs CBC & Chem 7: 10/12/20 08:21 10/14/20 05:43 Labs: Laboratory Results - last 24 hr 10/17/20 10/17/20 10/18/20 15:58 20:19 07:14 POC Glucose 153 H 363 H* 155 H 10/18/20 10:56 POC Glucose 254 H Microbiology Microbiology Results: Microbiology 08/30/20 16:44 Blood - Venous Blood Culture - Final No growth after 5 days. 08/30/20 16:44 Blood - Venous Blood Culture - Final No growth after 5 days. 08/27/20 13:24 Blood - Venous Blood Culture - Final No growth after 5 days. 08/27/20 13:24 Blood - Venous Blood Culture - Final No growth after 5 days. 08/30/20 16:35 Sputum - Suctioned Gram Stain - Final 08/30/20 16:35 Sputum - Suctioned Sputum Culture - Final 08/20/20 10:59 Blood - Venous Blood Culture - Final No growth after 5 days. 08/20/20 10:55 Blood - Venous Blood Culture - Final No growth after 5 days. Review of Systems Review of Systems Yes all other systems are reviewed and are negative Constitutional: Denies chills and Denies fever(s) Cardiovascular: Denies chest pain and Reports dyspnea Respiratory: Reports cough and Reports dyspnea Gastrointestinal: Denies abdominal pain Musculoskeletal: Reports muscle weakness Physical Exam Vital Signs: Vital Signs: Last Vital Signs Temp 97.6 F 10/18/20 11:17 Pulse 82 10/18/20 11:17 Resp 18 10/18/20 11:17 BP 102/68 10/18/20 11:17 Pulse Ox 94 10/18/20 11:17 Body Mass Index 27.3 Const: General: alert HENMT: General nose exam: Abnormal external nose present and Nasal discharge present Eyes: Pupils: Equal, round and reactive pupils present Neck: Neck: Yes normal visual inspection, Yes full ROM and Yes no lymphadenopathy Chest: Chest palpation & inspection: normal inspection of the chest Resp: Auscultation: rales and diminished lung sounds Cardio: Rate: regular rate Rhythm: regular rhythm Heart sounds: S1 normal heart sound present and S2 normal heart sound present GI: Palpation (GI): Soft to palpation and nontender Auscultation: normal bowel sounds : General: Yes no CVA tenderness Back/Spine/Pelvis: Back: no CVA tenderness Skin: General skin exam: rashes and/or lesions noted Neuro: Cranial nerves: Yes Equal, round and reactive pupils present Assessment and Plan Assessment and plan (1) Pulmonary fibrosis: Status: Acute (2) ARDS (adult respiratory distress syndrome): Status: Acute (3) COVID-19: Status: Acute (4) Chronic respiratory failure: Status: Acute (5) COPD (chronic obstructive pulmonary disease): Status: Acute Assessment and Plan: Wean oxygen to maintain a pulse ox above 85%, hopefully we can wean her down to an Oxymizer pendant. We have to accept a lower pulse ox due to her extensive pulmonary fibrosis. Deep breathing exercises and out of bed as tolerated, continue incentive spirometer Continue nebulized therapy Prednisone taper Awaiting LTAC Time Spent With Patient Time: Total time spent is greater than 50% in coordination of care (as documented) at patient's floor/unit and/or counseling patient: Time with patient: 15 - 24 minutes
--- NOTE | 2020-10-18 15:14 | HO.PM.IMPN ---
Subjective Subjective Date of Service: 10/18/20 Interval History: the patient was seen and evaluated this morning Laying in bed, feels comfortable Oxygen requirement decreasing to 4-6 L with sats around 90% Denies any fever, chills or shortness of breath No reported other overnight events. Systemic review: No fever, chills or weakness No chest pain, palpitation No shortness of breath or coughing but still requiring supplement of oxygen No abdominal pain, nausea or vomiting No urinary symptoms No any rash or wounds Physical Exam Vital Signs: Vital Signs: Last Vital Signs Temp 97.6 F 10/18/20 15:11 Pulse 88 10/18/20 15:11 Resp 20 10/18/20 15:11 BP 109/56 L 10/18/20 15:11 Pulse Ox 90 L 10/18/20 15:11 Body Mass Index 27.3 Const: Other: Constitutional : Alert, oriented, not in distress Neck : Normal inspection, Supple Cardiovascular : RRR, S1 S2, no lower extremity edema Respiratory : Good bilateral air entry, no crackles, wheezes or rhonchi Gastrointestinal: soft, lax, Normal bowel sounds, Non tender Skin : Warm/Dry, No rash Neurological : Alert & oriented to self, No focal deficit Objective Data Current Medications Generic Name Dose Route Start Last Admin Trade Name Freq PRN Reason Stop Dose Admin Acetaminophen 650 mg 08/20/20 16:18 10/12/20 05:02 Acetaminophen 325 Mg Tablet PO 650 mg Q6H PRN Administration Pain, Mild (Pain Scale 1-3) Albuterol/Ipratropium 3 ml 10/16/20 14:00 10/18/20 08:35 Albuterol/Iprat 2.5/0.5mg 3 Ml Ampul.Neb INHALE 3 ml RQ6H WHILE AWAKE [facility]CIE Administration Apixaban 2.5 mg 09/22/20 21:00 10/18/20 08:16 Apixaban 2.5 Mg Tablet PO 2.5 mg BID [facility] Administration Atorvastatin Calcium 20 mg 10/08/20 21:00 10/17/20 21:50 Atorvastatin Calcium 20 Mg Tablet PO 20 mg BEDTIME [facility] Administration Azithromycin 250 mg 10/16/20 10:00 10/18/20 08:16 Azithromycin 600 Mg/15 Ml Bottle PO 250 mg DAILY [facility] Administration Docusate Sodium 100 mg 09/23/20 10:45 10/18/20 08:16 Docusate Sodium 100 Mg Capsule PO 100 mg BID [facility] Administration Guaifenesin/Dextromethorphan 10 ml 09/22/20 10:15 10/18/20 10:52 Guaifenesin Dm 100/10/5 Ml 5 Ml Syrup PO 10 ml Q6H [facility] Administration Insulin Glargine 15 unit 10/17/20 09:00 10/18/20 08:17 Insulin Glargine,Hum.Rec.Anlog 100 Unit/Ml 10 Ml Vial SUBCUT 15 unit DAILY [facility] Administration Insulin Human Lispro 0 unit 08/20/20 16:30 10/18/20 11:59 Insulin Lispro 100 Unit/Ml 3 Ml Vial SUBCUT 7 unit QIDACHS [facility] Administration Protocol Lidocaine HCl 15 ml 09/08/20 14:05 09/23/20 20:41 Lidocaine Hcl Viscous 2 % 15 Ml Solution MUCOUS MEM 15 ml Q3H PRN Administration oral pain Magnesium Hydroxide 30 ml 09/23/20 10:32 10/02/20 13:39 Milk Of Magnesia 30 Ml Oral.Susp PO 30 ml DAILY PRN Administration constipation Metoprolol Tartrate 25 mg 08/29/20 12:55 10/18/20 08:16 Metoprolol Tartrate 25 Mg Tablet PO 25 mg BID [facility] Administration Protocol Nystatin 1 appl 08/27/20 11:00 10/18/20 08:21 Nystatin Powder 15 Gm Bottle TOPICAL 1 appl BID [facility] Administration Protocol Nystatin 500,000 unit 09/23/20 13:00 10/18/20 14:19 Nystatin Oral Susp 500,000 Unit/5 Ml Oral.Susp PO 500,000 unit QID [facility] Administration Protocol Omeprazole 20 mg 09/19/20 06:30 10/18/20 05:31 Omeprazole 20 Mg Capsule.Dr PO 20 mg DAILY@0630 [facility] Administration Ondansetron HCl 4 mg 08/20/20 16:18 Ondansetron Hcl 4 Mg/2 Ml Vial IVPUSH Q8H PRN Nausea and Vomiting Prednisone 20 mg 10/17/20 09:00 10/18/20 08:17 Prednisone 20 Mg Tablet PO 10/19/20 09:01 20 mg DAILY [facility] Administration Prednisone 10 mg 10/20/20 09:00 Prednisone 10 Mg Tablet PO 10/22/20 09:01 DAILY [facility] Prednisone 5 mg 10/23/20 09:00 Prednisone 5 Mg Tablet PO 10/25/20 09:01 DAILY [facility] Sodium Chloride 3 ml 08/20/20 16:18 10/18/20 08:18 0.9 % Sodium Chloride Flush 3 Ml Syringe IVFLUSH 3 ml QSHIFT [facility] Administration Vitamin D 50 mcg 08/28/20 09:00 10/18/20 08:16 Cholecalciferol (Vitamin D3) 25 Mcg Tablet PO 50 mcg DAILY [facility] Administration Zinc Oxide 1 appl 09/07/20 10:47 09/28/20 23:07 Zinc Oxide (Triple Paste) 56.7 Gm Oint TOPICAL 1 appl QID PRN Administration SKIN BREAKDOWN/BUTTOCKS/PERINE Labs CBC & Chem 7: 10/12/20 08:21 10/14/20 05:43 Microbiology Microbiology Results: Microbiology 08/30/20 16:44 Blood - Venous Blood Culture - Final No growth after 5 days. 08/30/20 16:44 Blood - Venous Blood Culture - Final No growth after 5 days. 08/27/20 13:24 Blood - Venous Blood Culture - Final No growth after 5 days. 08/27/20 13:24 Blood - Venous Blood Culture - Final No growth after 5 days. 08/30/20 16:35 Sputum - Suctioned Gram Stain - Final 08/30/20 16:35 Sputum - Suctioned Sputum Culture - Final 08/20/20 10:59 Blood - Venous Blood Culture - Final No growth after 5 days. 08/20/20 10:55 Blood - Venous Blood Culture - Final No growth after 5 days. Assessment and Plan (1) Acute respiratory failure with hypoxia: Status: Acute (2) DVT, bilateral lower limbs: Status: Acute (3) Hypernatremia: Status: Acute (4) COVID-19: Status: Acute (5) Acute respiratory failure due to COVID-19: Status: Acute (6) HLD (hyperlipidemia): Status: Acute (7) HTN (hypertension): Status: Acute (8) T2DM (type 2 diabetes mellitus): Status: Acute (9) COPD (chronic obstructive pulmonary disease): Status: Acute Assessment and Plan: hospital d#59 79yo F with HTN, DM2, COPD, CAD admitted 08/20/20 for acute hypoxic respiratory failure due to COVID-19 (onset of symptoms 08/11/20, initial positive molecular test 08/14/20) to ICU 08/22/20 for ARDS BLE. DVTs diagnosed 08/28 DNR/DNI 09/02 IMC status 09/03 repeat molecular test 10/06/20 negative, IgG 10/05/20 positive; taken off of isolation persistent severe hypoxia # acute hypoxic respiratory failure due to COVID-19 pneumonia Finished primary treatment for COVID-19 infection Weaning down as tolerated, on 4-6 L with sat of 90 per Pulmonology trial of short course of prednisone with taper- ordered for 10/12-10/25/20 # DVTs s/p therapeutic LMWH 1 mg/kg bid 08/29-09/21/20, now on apixaban 2.5mg bid, total duration 3 mo D-dimer improving # DM2, A1c 8.4 (06/20/20) with hyperglycemia continue Lantus (increased dosea) + correction-dose lispro (increased sliding scale) # CAD continue metoprolol, statin # HTN continue metoprolol # fungal dermatitis nystatin + Zn oxide # stage 2 sacral pressure ulcer barrier cream to the area and foam dressing, continue to offload and rotate and reposition frequently and special air mattress etc. careful with moving pt in regards to dragging across sheet. # FEN # mild protein-calorie malnutrition NDD2 regular diet, supplements, [employer] re-evaluation # dispo Start looking for facilities for short-term rehab versus long-term care
[2020-10-18 16:03] LABS: Glucose, Whole Blood 279 mg/dL (60-115)
[2020-10-18 20:03] LABS: Glucose, Whole Blood 411 mg/dL (60-115)
[2020-10-18] MEDS: Atorvastatin Calcium 20 MG TABLET PO (20:30)
[2020-10-19] VITALS (12 sets, daily range): BP systolic 102–139; BP diastolic 57–75; PULSE 75–102; RESP 18–26; TEMP 36–37.1; O2SAT 94–100
[2020-10-19] MEDS: 0.9 % Sodium Chloride Flush 3 ML SYRINGE IVFLUSH ×4 (01:07→23:45)
[2020-10-19] MEDS: guaiFENesin DM 100/10/5 ML 5 ML SYRUP 10 ML PO ×4 (03:22→21:12)
[2020-10-19] MEDS: Omeprazole 20 MG CAPSULE.DR PO (05:41)
[2020-10-19 07:21] LABS: Glucose, Whole Blood 125 mg/dL (60-115)
[2020-10-19] MEDS: Albuterol/Iprat 2.5/0.5MG 3 ML AMPUL.NEB INHALE ×3 (08:18→20:43)
[2020-10-19] MEDS: Insulin Glargine,Hum.rec.anlog 100 UNIT/ML 10 ML VIAL 15 UNIT SUBCUT (09:12)
[2020-10-19] MEDS: Nystatin Oral Susp 500,000 UNIT/5 ML ORAL.SUSP 500000 UNIT PO ×4 (09:13→21:12)
[2020-10-19] MEDS: Docusate Sodium 100 MG CAPSULE PO ×2 (09:14→21:08)
[2020-10-19] MEDS: predniSONE 20 MG TABLET PO (09:14)
[2020-10-19] MEDS: Cholecalciferol (Vitamin D3) 25 MCG TABLET 50 MCG PO (09:14)
[2020-10-19] MEDS: Metoprolol Tartrate 25 MG TABLET PO ×2 (09:19→21:09)
[2020-10-19] MEDS: Apixaban 2.5 MG TABLET PO ×2 (09:19→21:10)
[2020-10-19] MEDS: Nystatin Powder 15 GM BOTTLE 1 APPL TOPICAL ×2 (09:20→21:13)
--- NOTE | 2020-10-19 09:24 | PM.PNPUL ---
Subjective Subjective Date of Service: 10/19/20 Interval history: The patient was seen and examined. She was able to be switched over to the Oxymizer pendant. If she is in bed resting she is able to maintain a pulse ox above 90% on 4 L. however, with any activity her pulse ox decreases significantly. This morning she had to move her bowels and ultimately desaturated to the low 80s and her Oxymizer pendant was increased to 8 L. she was able to maintain a pulse ox of above 90% on the 8 L. at nighttime sometimes she is a mouth breather and sometimes requires a Ventimask instead. Objective Data Labs CBC & Chem 7: 10/12/20 08:21 10/14/20 05:43 Labs: Laboratory Results - last 24 hr 10/18/20 10/18/20 10/18/20 10:56 15:56 19:57 POC Glucose 254 H 279 H 411 H* 10/19/20 07:02 POC Glucose 125 H Microbiology Microbiology Results: Microbiology 08/30/20 16:44 Blood - Venous Blood Culture - Final No growth after 5 days. 08/30/20 16:44 Blood - Venous Blood Culture - Final No growth after 5 days. 08/27/20 13:24 Blood - Venous Blood Culture - Final No growth after 5 days. 08/27/20 13:24 Blood - Venous Blood Culture - Final No growth after 5 days. 08/30/20 16:35 Sputum - Suctioned Gram Stain - Final 08/30/20 16:35 Sputum - Suctioned Sputum Culture - Final 08/20/20 10:59 Blood - Venous Blood Culture - Final No growth after 5 days. 08/20/20 10:55 Blood - Venous Blood Culture - Final No growth after 5 days. Review of Systems Review of Systems Yes all other systems are reviewed and are negative Constitutional: Denies chills and Denies fever(s) Cardiovascular: Denies chest pain and Reports dyspnea Respiratory: Reports cough and Reports dyspnea Gastrointestinal: Denies abdominal pain Musculoskeletal: Reports muscle weakness Physical Exam Vital Signs: Vital Signs: Last Vital Signs Temp 97 F 10/19/20 07:02 Pulse 86 10/19/20 08:19 Resp 19 10/19/20 07:02 BP 129/60 10/19/20 07:02 Pulse Ox 94 10/19/20 07:02 Body Mass Index 27.3 Const: General: alert Neck: Neck: Yes normal visual inspection, Yes full ROM and Yes no lymphadenopathy Chest: Chest palpation & inspection: normal inspection of the chest Resp: Auscultation: rales and diminished lung sounds Cardio: Rate: regular rate Rhythm: regular rhythm Heart sounds: S1 normal heart sound present and S2 normal heart sound present GI: Palpation (GI): Soft to palpation and nontender Auscultation: normal bowel sounds Skin: General skin exam: rashes and/or lesions noted Assessment and Plan Assessment and plan (1) Pulmonary fibrosis: Status: Acute (2) Chronic respiratory failure: Status: Acute (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 Will request an ABG to assess for any hypercarbia. The patient may benefit from noninvasive ventilation at nighttime in view of her COPD Out of bed to chair with Center spirometer Continue slow prednisone taper Time Spent With Patient Time: Total time spent is greater than 50% in coordination of care (as documented) at patient's floor/unit and/or counseling patient: Time with patient: 15 - 24 minutes
[2020-10-19] MEDS: Azithromycin 250 MG TABLET PO (09:34)
[2020-10-19 10:44] LABS: ABG HCO3 37 mmol/L (22-26); ABG pCO2 50 mmHg (32-45); ABG pCO2 TC 49 mmHg (32-45); ABG pH 7.48 (7.35-7.45); ABG pH TC 7.49 (7.35-7.45); ABG pO2 50 mmHg (83-108); ABG pO2 TC 49 (83-108)
--- NOTE | 2020-10-19 10:58 | P.PNIM_ITS ---
Subjective Subjective Date of Service: 10/19/20 Interval History: The patient was seen and evaluated this morning Laying in bed, feels comfortable Oxygen requirement increased overnight to keep her sats around 90% Saturation tends to drop with minimal movement Denies any fever, chills or shortness of breath No reported other overnight events. Systemic review: No fever, chills a generally weakness No chest pain, palpitation No shortness of breath or coughing but still requiring supplement of oxygen No abdominal pain, nausea or vomiting No urinary symptoms No any rash or wounds Physical Exam Vital Signs: Vital Signs: Last Vital Signs Temp 97 F 10/19/20 07:02 Pulse 86 10/19/20 09:19 Resp 19 10/19/20 07:02 BP 129/60 10/19/20 09:19 Pulse Ox 94 10/19/20 07:02 Body Mass Index 27.3 Const: Other: Constitutional : Alert, oriented, not in distress Neck : Normal inspection, Supple Cardiovascular : RRR, S1 S2, no lower extremity edema Respiratory : Good bilateral air entry, no crackles, wheezes or rhonchi Gastrointestinal: soft, lax, Normal bowel sounds, Non tender Skin : Warm/Dry, No rash Neurological : Alert & oriented to self, No focal deficit Objective Data Current Medications Generic Name Dose Route Start Last Admin Trade Name Freq PRN Reason Stop Dose Admin Acetaminophen 650 mg 08/20/20 16:18 10/12/20 05:02 Acetaminophen 325 Mg Tablet PO 650 mg Q6H PRN Administration Pain, Mild (Pain Scale 1-3) Albuterol/Ipratropium 3 ml 10/16/20 14:00 10/19/20 08:18 Albuterol/Iprat 2.5/0.5mg 3 Ml Ampul.Neb INHALE 3 ml RQ6H WHILE AWAKE [facility]CIE Administration Apixaban 2.5 mg 09/22/20 21:00 10/19/20 09:19 Apixaban 2.5 Mg Tablet PO 2.5 mg BID [facility] Administration Atorvastatin Calcium 20 mg 10/08/20 21:00 10/18/20 20:30 Atorvastatin Calcium 20 Mg Tablet PO 20 mg BEDTIME [facility] Administration Azithromycin 250 mg 10/19/20 09:00 10/19/20 09:34 Azithromycin 250 Mg Tablet PO 250 mg DAILY [facility] Administration Docusate Sodium 100 mg 09/23/20 10:45 10/19/20 09:14 Docusate Sodium 100 Mg Capsule PO 100 mg BID [facility] Administration Guaifenesin/Dextromethorphan 10 ml 09/22/20 10:15 10/19/20 09:13 Guaifenesin Dm 100/10/5 Ml 5 Ml Syrup PO 10 ml Q6H [facility] Administration Insulin Glargine 15 unit 10/17/20 09:00 10/19/20 09:12 Insulin Glargine,Hum.Rec.Anlog 100 Unit/Ml 10 Ml Vial SUBCUT 15 unit DAILY [facility] Administration Insulin Human Lispro 0 unit 08/20/20 16:30 10/19/20 09:20 Insulin Lispro 100 Unit/Ml 3 Ml Vial SUBCUT Not Given QIDACHS [facility] Protocol Lidocaine HCl 15 ml 09/08/20 14:05 09/23/20 20:41 Lidocaine Hcl Viscous 2 % 15 Ml Solution MUCOUS MEM 15 ml Q3H PRN Administration oral pain Magnesium Hydroxide 30 ml 09/23/20 10:32 10/02/20 13:39 Milk Of Magnesia 30 Ml Oral.Susp PO 30 ml DAILY PRN Administration constipation Metoprolol Tartrate 25 mg 08/29/20 12:55 10/19/20 09:19 Metoprolol Tartrate 25 Mg Tablet PO 25 mg BID [facility] Administration Protocol Nystatin 1 appl 08/27/20 11:00 10/19/20 09:20 Nystatin Powder 15 Gm Bottle TOPICAL 1 appl BID [facility] Administration Protocol Nystatin 500,000 unit 09/23/20 13:00 10/19/20 09:13 Nystatin Oral Susp 500,000 Unit/5 Ml Oral.Susp PO 500,000 unit QID [facility] Administration Protocol Omeprazole 20 mg 09/19/20 06:30 10/19/20 05:41 Omeprazole 20 Mg Capsule. PO 20 mg DAILY@0630 [facility] Administration Ondansetron HCl 4 mg 08/20/20 16:18 Ondansetron Hcl 4 Mg/2 Ml Vial IVPUSH Q8H PRN Nausea and Vomiting Prednisone 10 mg 10/20/20 09:00 Prednisone 10 Mg Tablet PO 10/22/20 09:01 DAILY [facility] Prednisone 5 mg 10/23/20 09:00 Prednisone 5 Mg Tablet PO 10/25/20 09:01 DAILY [facility] Sodium Chloride 3 ml 08/20/20 16:18 10/19/20 09:12 0.9 % Sodium Chloride Flush 3 Ml Syringe IVFLUSH 3 ml QSHIFT [facility] Administration Vitamin D 50 mcg 08/28/20 09:00 10/19/20 09:14 Cholecalciferol (Vitamin D3) 25 Mcg Tablet PO 50 mcg DAILY [facility] Administration Zinc Oxide 1 appl 09/07/20 10:47 09/28/20 23:07 Zinc Oxide (Triple Paste) 56.7 Gm Oint TOPICAL 1 appl QID PRN Administration SKIN BREAKDOWN/BUTTOCKS/PERINE Labs CBC & Chem 7: 10/12/20 08:21 10/14/20 05:43 Microbiology Microbiology Results: Microbiology 08/30/20 16:44 Blood - Venous Blood Culture - Final No growth after 5 days. 08/30/20 16:44 Blood - Venous Blood Culture - Final No growth after 5 days. 08/27/20 13:24 Blood - Venous Blood Culture - Final No growth after 5 days. 08/27/20 13:24 Blood - Venous Blood Culture - Final No growth after 5 days. 08/30/20 16:35 Sputum - Suctioned Gram Stain - Final 08/30/20 16:35 Sputum - Suctioned Sputum Culture - Final 08/20/20 10:59 Blood - Venous Blood Culture - Final No growth after 5 days. 08/20/20 10:55 Blood - Venous Blood Culture - Final No growth after 5 days. Assessment and Plan (1) Acute respiratory failure with hypoxia: Status: Acute (2) DVT, bilateral lower limbs: Status: Acute (3) Hypernatremia: Status: Acute (4) COVID-19: Status: Acute (5) Acute respiratory failure due to COVID-19: Status: Acute (6) HLD (hyperlipidemia): Status: Acute (7) HTN (hypertension): Status: Acute (8) T2DM (type 2 diabetes mellitus): Status: Acute (9) COPD (chronic obstructive pulmonary disease): Status: Acute Assessment and Plan: hospital d#60 79yo F with HTN, DM2, COPD, CAD admitted 08/20/20 for acute hypoxic respiratory failure due to COVID-19 (onset of symptoms 08/11/20, initial positive molecular test 08/14/20) to ICU 08/22/20 for ARDS BLE. DVTs diagnosed 2/2 DNR/DNI 09/02 IMC status 09/03 repeat molecular test 10/06/20 negative, IgG 10/05/20 positive; taken off of isolation persistent severe hypoxia # acute hypoxic respiratory failure due to COVID-19 pneumonia Finished primary treatment for COVID-19 infection Weaning down as tolerated, on 8L with sat of 90 ABG showing hypoxemia with mild alkalosis per Pulmonology trial of short course of prednisone with taper- ordered for 10/12-10/25/20 # DVTs s/p therapeutic LMWH 1 mg/kg bid 08/29-09/21/20, now on apixaban 2.5mg bid, total duration 3 mo until 11/26/2020 D-dimer improved # DM2, A1c 8.4 (06/20/20) with hyperglycemia continue Lantus (increased dosea) + correction-dose lispro (increased sliding scale) # CAD continue metoprolol, statin # HTN continue metoprolol # fungal dermatitis nystatin + Zn oxide # stage 2 sacral pressure ulcer barrier cream to the area and foam dressing, continue to offload and rotate and reposition frequently and special air mattress # FEN # mild protein-calorie malnutrition NDD2 regular diet, supplements, EMS DIRECTOR re-evaluation # dispo Start looking for facilities for short-term rehab versus long-term care
[2020-10-19 11:02] LABS: ABG Refer to POC result
[2020-10-19 11:08] LABS: Glucose, Whole Blood 341 mg/dL (60-115)
[2020-10-19] MEDS: Insulin Lispro 100 UNIT/ML 3 ML VIAL SUBCUT ×5 (11:41→22:16)
--- NOTE | 2020-10-19 12:49 | MHC.CM.PN ---
per multidis rounds pt remains on high 02 f;ow at 15 liters cm will continue to follow
--- NOTE | 2020-10-19 13:39 | MHC.CLN ---
F/U PO INTAKE IMPROVED SLIGHTLY 50-75% DIET RX; GRD/M/S -APPROPRIATE (continue per personal attendant) PT RECEIVES ENSURE BID, PROSOURCE BID AND BELEM PROVIDES [id number] (80% EST KCALS NEEDS), 75G PROTEIN (109% EST PROTEIN NEEDS) FOLLOWING
[2020-10-19 17:05] LABS: Glucose, Whole Blood 484 mg/dL (60-115)
[2020-10-19] MEDS: Insulin Lispro 100 UNIT/ML 3 ML VIAL 7 UNIT SUBCUT (17:43)
--- NOTE | 2020-10-19 18:38 | PC.NURSE ---
PT CURRENTLY ON 8L OXIMIZER. DESATS QUICKLY WHEN REPOSITIONING AND TURNING ONTO SIDE. POC ELEVATED THIS EVENING 484. EXTRA HUMALOG GIVEN PER MD
[2020-10-19 20:01] LABS: Glucose, Whole Blood 402 mg/dL (60-115)
[2020-10-19] MEDS: Atorvastatin Calcium 20 MG TABLET PO (21:10)
[2020-10-19 21:59] LABS: Glucose, Whole Blood 295 mg/dL (60-115)
[2020-10-20] VITALS (9 sets, daily range): BP systolic 102–149; BP diastolic 54–65; PULSE 77–100; RESP 20–22; TEMP 36.1–36.7; O2SAT 93–99
[2020-10-20] MEDS: guaiFENesin DM 100/10/5 ML 5 ML SYRUP 10 ML PO ×4 (03:57→20:49)
[2020-10-20] MEDS: Omeprazole 20 MG CAPSULE.DR PO (06:09)
[2020-10-20 07:41] LABS: Glucose, Whole Blood 140 mg/dL (60-115)
[2020-10-20] MEDS: Albuterol/Iprat 2.5/0.5MG 3 ML AMPUL.NEB INHALE ×3 (07:48→20:31)
[2020-10-20] MEDS: Insulin Lispro 100 UNIT/ML 3 ML VIAL SUBCUT ×4 (08:10→20:50)
[2020-10-20] MEDS: 0.9 % Sodium Chloride Flush 3 ML SYRINGE IVFLUSH ×3 (08:11→23:01)
[2020-10-20] MEDS: Docusate Sodium 100 MG CAPSULE PO ×2 (08:32→20:49)
[2020-10-20] MEDS: Azithromycin 250 MG TABLET PO (08:32)
[2020-10-20] MEDS: predniSONE 10 MG TABLET PO (08:32)
[2020-10-20] MEDS: Cholecalciferol (Vitamin D3) 25 MCG TABLET 50 MCG PO (08:32)
[2020-10-20] MEDS: Nystatin Oral Susp 500,000 UNIT/5 ML ORAL.SUSP 500000 UNIT PO ×4 (08:32→20:49)
[2020-10-20] MEDS: Nystatin Powder 15 GM BOTTLE 1 APPL TOPICAL ×2 (08:33→21:02)
[2020-10-20] MEDS: Metoprolol Tartrate 25 MG TABLET PO ×2 (08:33→20:49)
[2020-10-20] MEDS: Insulin Glargine,Hum.rec.anlog 100 UNIT/ML 10 ML VIAL 15 UNIT SUBCUT (08:33)
[2020-10-20] MEDS: Apixaban 2.5 MG TABLET PO ×2 (08:33→20:50)
[2020-10-20 11:36] LABS: Glucose, Whole Blood 370 mg/dL (60-115)
--- NOTE | 2020-10-20 13:43 | P.PNIM_ITS ---
Subjective Subjective Date of Service: 10/20/20 Interval History: The patient was seen and evaluated this morning Laying in bed, feels comfortable Oxygen requirement of 8 L to keep her sats around 90%, drops to 70s with minimal movement Denies any fever, chills or shortness of breath No reported other overnight events. Systemic review: No fever, chills a generally weakness No chest pain, palpitation No shortness of breath or coughing but still requiring supplement of oxygen No abdominal pain, nausea or vomiting No urinary symptoms No any rash or wounds Physical Exam Vital Signs: Vital Signs: Last Vital Signs Temp 98.0 F 10/20/20 12:00 Pulse 87 10/20/20 12:00 Resp 22 H 10/20/20 12:00 BP 107/54 L 10/20/20 12:00 Pulse Ox 95 10/20/20 12:00 Body Mass Index 27.3 Const: Other: Constitutional : Alert, oriented, not in distress Neck : Normal inspection, Supple Cardiovascular : RRR, S1 S2, no lower extremity edema Respiratory : Good bilateral air entry, no crackles, wheezes or rhonchi Gastrointestinal: soft, lax, Normal bowel sounds, Non tender Skin : Warm/Dry, No rash Neurological : Alert & oriented to self, No focal deficit Objective Data Current Medications Generic Name Dose Route Start Last Admin Trade Name Caseq PRN Reason Stop Dose Admin Acetaminophen 650 mg 08/20/20 16:18 10/12/20 05:02 Acetaminophen 325 Mg Tablet PO 650 mg Q6H PRN Administration Pain, Mild (Pain Scale 1-3) Albuterol/Ipratropium 3 ml 10/16/20 14:00 10/20/20 07:48 Albuterol/Iprat 2.5/0.5mg 3 Ml Ampul.Neb INHALE 3 ml RQ6H WHILE AWAKE LUCIE Administration Apixaban 2.5 mg 09/22/20 21:00 10/20/20 08:33 Apixaban 2.5 Mg Tablet PO 2.5 mg BID LUCIE Administration Atorvastatin Calcium 20 mg 10/08/20 21:00 10/19/20 21:10 Atorvastatin Calcium 20 Mg Tablet PO 20 mg BEDTIME LUCIE Administration Azithromycin 250 mg 10/19/20 09:00 10/20/20 08:32 Azithromycin 250 Mg Tablet PO 250 mg DAILY LUCIE Administration Docusate Sodium 100 mg 09/23/20 10:45 10/20/20 08:32 Docusate Sodium 100 Mg Capsule PO 100 mg BID LUCIE Administration Guaifenesin/Dextromethorphan 10 ml 09/22/20 10:15 10/20/20 10:16 Guaifenesin Dm 100/10/5 Ml 5 Ml Syrup PO 10 ml Q6H LUCIE Administration Insulin Glargine 15 unit 10/17/20 09:00 10/20/20 08:33 Insulin Glargine,Hum.Rec.Anlog 100 Unit/Ml 10 Ml Vial SUBCUT 15 unit DAILY LUCIE Administration Insulin Human Lispro 0 unit 08/20/20 16:30 10/20/20 11:39 Insulin Lispro 100 Unit/Ml 3 Ml Vial SUBCUT 12 unit QIDACHS [facility] Administration Protocol Lidocaine HCl 15 ml 09/08/20 14:05 09/23/20 20:41 Lidocaine Hcl Viscous 2 % 15 Ml Solution MUCOUS MEM 15 ml Q3H PRN Administration oral pain Magnesium Hydroxide 30 ml 09/23/20 10:32 10/02/20 13:39 Milk Of Magnesia 30 Ml Oral.Susp PO 30 ml DAILY PRN Administration constipation Metoprolol Tartrate 25 mg 08/29/20 12:55 10/20/20 08:33 Metoprolol Tartrate 25 Mg Tablet PO 25 mg BID [facility] Administration Protocol Nystatin 1 appl 08/27/20 11:00 10/20/20 08:33 Nystatin Powder 15 Gm Bottle TOPICAL 1 appl BID [facility] Administration Protocol Nystatin 500,000 unit 09/23/20 13:00 10/20/20 08:32 Nystatin Oral Susp 500,000 Unit/5 Ml Oral.Susp PO 500,000 unit QID [facility] Administration Protocol Omeprazole 20 mg 09/19/20 06:30 10/20/20 06:09 Omeprazole 20 Mg Capsule. PO 20 mg DAILY@0630 [facility] Administration Ondansetron HCl 4 mg 08/20/20 16:18 Ondansetron Hcl 4 Mg/2 Ml Vial IVPUSH Q8H PRN Nausea and Vomiting Prednisone 10 mg 10/20/20 09:00 10/20/20 08:32 Prednisone 10 Mg Tablet PO 10/22/20 09:01 10 mg DAILY LUCIE Administration Prednisone 5 mg 10/23/20 09:00 Prednisone 5 Mg Tablet PO 10/25/20 09:01 DAILY [facility] Sodium Chloride 3 ml 08/20/20 16:18 10/20/20 08:11 0.9 % Sodium Chloride Flush 3 Ml Syringe IVFLUSH 3 ml QSHIFT LUCIE Administration Vitamin D 50 mcg 08/28/20 09:00 10/20/20 08:32 Cholecalciferol (Vitamin D3) 25 Mcg Tablet PO 50 mcg DAILY [facility]CIE Administration Zinc Oxide 1 appl 09/07/20 10:47 09/28/20 23:07 Zinc Oxide (Triple Paste) 56.7 Gm Oint TOPICAL 1 appl QID PRN Administration SKIN BREAKDOWN/BUTTOCKS/PERINE Labs CBC & Chem 7: 10/12/20 08:21 10/14/20 05:43 Microbiology Microbiology Results: Microbiology 08/30/20 16:44 Blood - Venous Blood Culture - Final No growth after 5 days. 08/30/20 16:44 Blood - Venous Blood Culture - Final No growth after 5 days. 08/27/20 13:24 Blood - Venous Blood Culture - Final No growth after 5 days. 08/27/20 13:24 Blood - Venous Blood Culture - Final No growth after 5 days. 08/30/20 16:35 Sputum - Suctioned Gram Stain - Final 08/30/20 16:35 Sputum - Suctioned Sputum Culture - Final 08/20/20 10:59 Blood - Venous Blood Culture - Final No growth after 5 days. 08/20/20 10:55 Blood - Venous Blood Culture - Final No growth after 5 days. Assessment and Plan (1) Acute respiratory failure with hypoxia: Status: Acute (2) DVT, bilateral lower limbs: Status: Acute (3) Hypernatremia: Status: Acute (4) COVID-19: Status: Acute (5) Acute respiratory failure due to COVID-19: Status: Acute (6) HLD (hyperlipidemia): Status: Acute (7) HTN (hypertension): Status: Acute (8) T2DM (type 2 diabetes mellitus): Status: Acute (9) COPD (chronic obstructive pulmonary disease): Status: Acute Assessment and Plan: hospital d#60 79yo F with HTN, DM2, COPD, CAD admitted 08/20/20 for acute hypoxic respiratory failure due to COVID-19 (onset of symptoms 08/11/20, initial positive molecular test 08/14/20) to ICU 08/22/20 for ARDS BLE. DVTs diagnosed 2/2 DNR/DNI 09/02 IMC status 09/03 repeat molecular test 10/06/20 negative, IgG 10/05/20 positive; taken off of isolation persistent severe hypoxia # acute and chronic hypoxic respiratory failure post COVID-19 pneumonia Finished primary treatment for COVID-19 infection Weaning down as tolerated, on 8L with sat of 90 Continue to drops to 70s with minimal movement ABG showing hypoxemia with mild alkalosis per Pulmonology trial of short course of prednisone with taper- ordered for 10/12-10/25/20 # DVTs s/p therapeutic LMWH 1 mg/kg bid 08/29-09/21/20, now on apixaban 2.5mg bid, total duration 3 mo until 11/26/2020 D-dimer improved # DM2, A1c 8.4 (06/20/20) with hyperglycemia continue Lantus (increased dosea) + correction-dose lispro (increased sliding scale) # CAD continue metoprolol, statin # HTN continue metoprolol # fungal dermatitis nystatin + Zn oxide # stage 2 sacral pressure ulcer barrier cream to the area and foam dressing, continue to offload and rotate and reposition frequently and special air mattress # FEN # mild protein-calorie malnutrition NDD2 regular diet, supplements, METER ATTENDANT re-evaluation # dispo Start looking for facilities for short-term rehab versus long-term care
[2020-10-20 16:01] LABS: Glucose, Whole Blood 184 mg/dL (60-115)
--- NOTE | 2020-10-20 17:35 | PC.NURSE ---
Pt desats to low 80's with activity but sats improve to 88-90% on 6l oximizer once pt settles. denies pain. tolerating recliner for several hours today. bm on the commode
[2020-10-20 19:54] LABS: Glucose, Whole Blood 241 mg/dL (60-115)
[2020-10-20] MEDS: Atorvastatin Calcium 20 MG TABLET PO (20:49)
[2020-10-21] VITALS (8 sets, daily range): BP systolic 103–139; BP diastolic 51–68; PULSE 72–101; RESP 18–22; TEMP 36.1–36.8; O2SAT 90–98
[2020-10-21] MEDS: Omeprazole 20 MG CAPSULE.DR PO (05:36)
[2020-10-21] MEDS: guaiFENesin DM 100/10/5 ML 5 ML SYRUP 10 ML PO ×4 (05:36→22:28)
[2020-10-21 07:31] LABS: Glucose, Whole Blood 156 mg/dL (60-115)
[2020-10-21] MEDS: Insulin Lispro 100 UNIT/ML 3 ML VIAL SUBCUT ×4 (07:48→20:48)
[2020-10-21] MEDS: 0.9 % Sodium Chloride Flush 3 ML SYRINGE IVFLUSH ×3 (07:49→20:48)
[2020-10-21] MEDS: Metoprolol Tartrate 25 MG TABLET PO ×2 (08:32→20:48)
[2020-10-21] MEDS: Nystatin Oral Susp 500,000 UNIT/5 ML ORAL.SUSP 500000 UNIT PO ×4 (08:32→20:47)
[2020-10-21] MEDS: Cholecalciferol (Vitamin D3) 25 MCG TABLET 50 MCG PO (08:32)
[2020-10-21] MEDS: Docusate Sodium 100 MG CAPSULE PO ×2 (08:32→20:47)
[2020-10-21] MEDS: Azithromycin 250 MG TABLET PO (08:32)
[2020-10-21] MEDS: Insulin Glargine,Hum.rec.anlog 100 UNIT/ML 10 ML VIAL 15 UNIT SUBCUT (08:32)
[2020-10-21] MEDS: Apixaban 2.5 MG TABLET PO ×2 (08:32→20:47)
[2020-10-21] MEDS: predniSONE 10 MG TABLET PO (08:32)
[2020-10-21] MEDS: Nystatin Powder 15 GM BOTTLE 1 APPL TOPICAL ×2 (08:37→22:28)
[2020-10-21 11:17] LABS: Glucose, Whole Blood 138 mg/dL (60-115)
--- NOTE | 2020-10-21 12:50 | MHC.CM.PN ---
Per MD, Patient is ready for dc to the next level of care; referrals in [employer] to LTACH & SNF level have been updated and CM awaits response, pending [facility] Auth. CM will follow.
[2020-10-21] MEDS: Albuterol/Iprat 2.5/0.5MG 3 ML AMPUL.NEB INHALE ×2 (13:40→19:57)
--- NOTE | 2020-10-21 15:01 | P.PNIM_ITS ---
Subjective Subjective Date of Service: 10/21/20 Interval History: The patient was seen and evaluated this morning Laying in bed, feels comfortable Oxygen requirement of 6L to keep her sats around 90%, saturation drops with minimal movement Denies any fever, chills or shortness of breath No reported other overnight events. Systemic review: No fever, chills a generally weakness No chest pain, palpitation No shortness of breath or coughing but still requiring supplement of oxygen No abdominal pain, nausea or vomiting No urinary symptoms No any rash or wounds Physical Exam Vital Signs: Vital Signs: Last Vital Signs Temp 97 F 10/21/20 11:00 Pulse 72 10/21/20 11:00 Resp 20 10/21/20 11:00 BP 129/68 10/21/20 11:00 Pulse Ox 98 10/21/20 11:00 Body Mass Index 27.3 Const: Other: Constitutional : Alert, oriented, not in distress Neck : Normal inspection, Supple Cardiovascular : RRR, S1 S2, no lower extremity edema Respiratory : Good bilateral air entry, no crackles, wheezes or rhonchi Gastrointestinal: soft, lax, Normal bowel sounds, Non tender Skin : Warm/Dry, No rash Neurological : Alert & oriented to self, No focal deficit Objective Data Current Medications Generic Name Dose Route Start Last Admin Trade Name Freq PRN Reason Stop Dose Admin Acetaminophen 650 mg 08/20/20 16:18 10/12/20 05:02 Acetaminophen 325 Mg Tablet PO 650 mg Q6H PRN Administration Pain, Mild (Pain Scale 1-3) Albuterol/Ipratropium 3 ml 10/16/20 14:00 10/21/20 13:40 Albuterol/Iprat 2.5/0.5mg 3 Ml Ampul.Neb INHALE 3 ml RQ6H WHILE AWAKE LUCIE Administration Apixaban 2.5 mg 09/22/20 21:00 10/21/20 08:32 Apixaban 2.5 Mg Tablet PO 2.5 mg BID [facility]CIE Administration Atorvastatin Calcium 20 mg 10/08/20 21:00 10/20/20 20:49 Atorvastatin Calcium 20 Mg Tablet PO 20 mg BEDTIME LUCIE Administration Azithromycin 250 mg 10/19/20 09:00 10/21/20 08:32 Azithromycin 250 Mg Tablet PO 250 mg DAILY [facility]CIE Administration Docusate Sodium 100 mg 09/23/20 10:45 10/21/20 08:32 Docusate Sodium 100 Mg Capsule PO 100 mg BID [facility]CIE Administration Guaifenesin/Dextromethorphan 10 ml 09/22/20 10:15 10/21/20 11:02 Guaifenesin Dm 100/10/5 Ml 5 Ml Syrup PO 10 ml Q6H LUCIE Administration Insulin Glargine 15 unit 10/17/20 09:00 10/21/20 08:32 Insulin Glargine,Hum.Rec.Anlog 100 Unit/Ml 10 Ml Vial SUBCUT 15 unit DAILY [facility]E Administration Insulin Human Lispro 0 unit 08/20/20 16:30 10/21/20 11:21 Insulin Lispro 100 Unit/Ml 3 Ml Vial SUBCUT 1 unit QIDACHS [facility] Administration Protocol Lidocaine HCl 15 ml 09/08/20 14:05 09/23/20 20:41 Lidocaine Hcl Viscous 2 % 15 Ml Solution MUCOUS MEM 15 ml Q3H PRN Administration oral pain Magnesium Hydroxide 30 ml 09/23/20 10:32 10/02/20 13:39 Milk Of Magnesia 30 Ml Oral.Susp PO 30 ml DAILY PRN Administration constipation Metoprolol Tartrate 25 mg 08/29/20 12:55 10/21/20 08:32 Metoprolol Tartrate 25 Mg Tablet PO 25 mg BID [facility] Administration Protocol Nystatin 1 appl 08/27/20 11:00 10/21/20 08:37 Nystatin Powder 15 Gm Bottle TOPICAL 1 appl BID [facility] Administration Protocol Nystatin 500,000 unit 09/23/20 13:00 10/21/20 12:32 Nystatin Oral Susp 500,000 Unit/5 Ml Oral.Susp PO 500,000 unit QID [facility] Administration Protocol Omeprazole 20 mg 09/19/20 06:30 10/21/20 05:36 Omeprazole 20 Mg Capsule. PO 20 mg DAILY@0630 [facility] Administration Ondansetron HCl 4 mg 08/20/20 16:18 Ondansetron Hcl 4 Mg/2 Ml Vial IVPUSH Q8H PRN Nausea and Vomiting Prednisone 10 mg 10/20/20 09:00 10/21/20 08:32 Prednisone 10 Mg Tablet PO 10/22/20 09:01 10 mg DAILY LUCIE Administration Prednisone 5 mg 10/23/20 09:00 Prednisone 5 Mg Tablet PO 10/25/20 09:01 DAILY [facility] Sodium Chloride 3 ml 08/20/20 16:18 10/21/20 07:49 0.9 % Sodium Chloride Flush 3 Ml Syringe IVFLUSH 3 ml QSHIFT [facility]E Administration Vitamin D 50 mcg 08/28/20 09:00 10/21/20 08:32 Cholecalciferol (Vitamin D3) 25 Mcg Tablet PO 50 mcg DAILY [facility] Administration Zinc Oxide 1 appl 09/07/20 10:47 09/28/20 23:07 Zinc Oxide (Triple Paste) 56.7 Gm Oint TOPICAL 1 appl QID PRN Administration SKIN BREAKDOWN/BUTTOCKS/PERINE Labs CBC & Chem 7: 10/12/20 08:21 10/14/20 05:43 Microbiology Microbiology Results: Microbiology 08/30/20 16:44 Blood - Venous Blood Culture - Final No growth after 5 days. 08/30/20 16:44 Blood - Venous Blood Culture - Final No growth after 5 days. 08/27/20 13:24 Blood - Venous Blood Culture - Final No growth after 5 days. 08/27/20 13:24 Blood - Venous Blood Culture - Final No growth after 5 days. 08/30/20 16:35 Sputum - Suctioned Gram Stain - Final 08/30/20 16:35 Sputum - Suctioned Sputum Culture - Final 08/20/20 10:59 Blood - Venous Blood Culture - Final No growth after 5 days. 08/20/20 10:55 Blood - Venous Blood Culture - Final No growth after 5 days. Assessment and Plan (1) Acute respiratory failure with hypoxia: Status: Acute (2) DVT, bilateral lower limbs: Status: Acute (3) Hypernatremia: Status: Acute (4) COVID-19: Status: Acute (5) Acute respiratory failure due to COVID-19: Status: Acute (6) HLD (hyperlipidemia): Status: Acute (7) HTN (hypertension): Status: Acute (8) T2DM (type 2 diabetes mellitus): Status: Acute (9) COPD (chronic obstructive pulmonary disease): Status: Acute Assessment and Plan: hospital d#61 79yo F with HTN, DM2, COPD, CAD admitted 08/20/20 for acute hypoxic respiratory failure due to COVID-19 (onset of symptoms 08/11/20, initial positive molecular test 08/14/20) to ICU 08/22/20 for ARDS BLE. DVTs diagnosed 2/2 DNR/DNI 2/7 IMC status 09/03 repeat molecular test 10/06/20 negative, IgG 10/05/20 positive; taken off of isolation persistent severe hypoxia # acute and chronic hypoxic respiratory failure post COVID-19 pneumonia Finished primary treatment for COVID-19 infection Weaning down as tolerated, on 6L with sat of 90 Continue to drops to 80s with minimal movement ABG showing hypoxemia with mild alkalosis per Pulmonology, O2 sat acceptable down to 85%, trial of short course of prednisone with taper- ordered for 10/12-10/25/20 # DVTs s/p therapeutic LMWH 1 mg/kg bid 08/29-09/21/20, now on apixaban 2.5mg bid, total duration 3 mo until 11/26/2020 D-dimer improved # DM2, A1c 8.4 (06/20/20) with hyperglycemia continue Lantus (increased dosea) + correction-dose lispro (increased sliding scale) # CAD continue metoprolol, statin # HTN continue metoprolol # fungal dermatitis nystatin + Zn oxide # stage 2 sacral pressure ulcer barrier cream to the area and foam dressing, continue to offload and rotate and reposition frequently and special air mat tress # FEN # mild protein-calorie malnutrition NDD2 regular diet, supplements, METAL MODEL BUILDER re-evaluation # dispo Start looking for facilities for short-term rehab versus long-term care
[2020-10-21 16:03] LABS: Glucose, Whole Blood 253 mg/dL (60-115)
[2020-10-21 20:15] LABS: Glucose, Whole Blood 268 mg/dL (60-115)
[2020-10-21] MEDS: Atorvastatin Calcium 20 MG TABLET PO (20:47)
[2020-10-22 03:34] VITALS: BP 136/68; PULSE 90; RESP 18; TEMP 36.5; O2SAT 97
[2020-10-22] MEDS: guaiFENesin DM 100/10/5 ML 5 ML SYRUP 10 ML PO ×2 (04:15→09:10)
[2020-10-22] MEDS: Omeprazole 20 MG CAPSULE.DR PO (06:03)
[2020-10-22 07:51] LABS: Glucose, Whole Blood 194 mg/dL (60-115)
[2020-10-22 08:00] VITALS: BP 108/68; PULSE 107; RESP 16; TEMP 36.1; O2SAT 98
[2020-10-22] MEDS: Insulin Lispro 100 UNIT/ML 3 ML VIAL SUBCUT ×2 (08:06→11:48)
[2020-10-22] MEDS: 0.9 % Sodium Chloride Flush 3 ML SYRINGE IVFLUSH (08:06)
[2020-10-22 08:54] VITALS: PULSE 93; O2SAT 100
[2020-10-22] MEDS: Albuterol/Iprat 2.5/0.5MG 3 ML AMPUL.NEB INHALE (08:54)
[2020-10-22] MEDS: Insulin Glargine,Hum.rec.anlog 100 UNIT/ML 10 ML VIAL 15 UNIT SUBCUT (09:08)
[2020-10-22 09:09] VITALS: BP 128/65; PULSE 93
[2020-10-22] MEDS: Apixaban 2.5 MG TABLET PO (09:09)
[2020-10-22] MEDS: Docusate Sodium 100 MG CAPSULE PO (09:09)
[2020-10-22] MEDS: predniSONE 10 MG TABLET PO (09:09)
[2020-10-22] MEDS: Cholecalciferol (Vitamin D3) 25 MCG TABLET 50 MCG PO (09:09)
[2020-10-22] MEDS: Azithromycin 250 MG TABLET PO (09:09)
[2020-10-22] MEDS: Metoprolol Tartrate 25 MG TABLET PO (09:09)
[2020-10-22] MEDS: Nystatin Powder 15 GM BOTTLE 1 APPL TOPICAL (09:10)
[2020-10-22] MEDS: Nystatin Oral Susp 500,000 UNIT/5 ML ORAL.SUSP 500000 UNIT PO ×2 (09:10→13:27)
[2020-10-22 11:10] VITALS: BP 128/65; PULSE 93
[2020-10-22 11:24] LABS: Glucose, Whole Blood 372 mg/dL (60-115)
[2020-10-22 11:35] VITALS: BP 115/54; PULSE 96; RESP 20; TEMP 36.6; O2SAT 99
--- NOTE | 2020-10-22 12:27 | MHC.CM.PN ---
Patient will be discharged to [facility] today at 3pm via BLS transport. Patient, HCP and nurse are all aware.
--- NOTE | 2020-10-22 14:24 | PM.DS ---
DS: Providers Provider Date of Service: 10/22/20 Date of admission: 08/20/20 15:15 Primary care physician: Alva Keyes NP Consults: 09/05/20 14:49 Consult to Wound Care Routine Consulting Provider: Areli Wood Reason for consultation: ?fungal versus pressure to coccyx, +covid 09/23/20 17:05 Consult to Wound Care Routine Consulting Provider: Areli Wood Reason for consultation: pressure injury to zhou buttocks covered with slough,wound gettin deeper 10/11/20 15:58 Consult to Pulmonology Routine Consulting Provider: Myles Busby Reason for consultation: long-haul COVID O2 dpeendent 10/18/20 13:28 Consult to Wound Care Routine Consulting Provider: [facility] Reason for consultation: stage 2 ulcer for your eval DS: Diagnosis Discharge Diagnosis (1) Acute respiratory failure with hypoxia: Status: Acute (2) DVT, bilateral lower limbs: Status: Acute (3) Hypernatremia: Status: Acute (4) COVID-19: Status: Acute (5) Acute respiratory failure due to COVID-19: Status: Acute (6) 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: Status: Acute (7) Pulmonary fibrosis: Status: Acute (8) Chronic respiratory failure: Status: Acute (9) Pressure ulcer of sacral region, stage 2: Status: Acute Problem details: sacral PI stage 2 (10) Fungal dermatitis: Status: Acute (11) Hypoglycemia: Status: Acute (12) ARDS (adult respiratory distress syndrome): Status: Acute (13) Pulmonary nodules: Status: Acute DS: Medications Discharge Medications Home Medications: Home Medications Medication Instructions Recorded Confirmed atorvastatin 80 mg tablet 80 mg PO BEDTIME 05/30/20 08/20/20 calcium carbonate 600 mg (1,500 1 tab PO BID 05/30/20 08/20/20 mg)-vitamin D3 400 unit tablet ergocalciferol (vitamin D2) 1,250 1,250 mcg PO Q30D 05/30/20 08/20/20 mcg (50,000 unit) capsule ezetimibe 10 mg tablet 10 mg PO QAM 05/30/20 08/20/20 metformin 1,000 mg tablet 1,000 mg PO BID 05/30/20 08/20/20 metoprolol succinate 50 mg 50 mg PO DAILY 05/30/20 08/20/20 tablet,extended release 24 hr multivitamin with minerals 1 tab PO QAM 05/30/20 08/20/20 nitroglycerin 0.4 mg sublingual 0.4 mg SUBLINGUAL Q5M PRN 05/30/20 08/20/20 tablet oxybutynin chloride 5 mg 5 mg PO BEDTIME 05/30/20 08/20/20 tablet,extended release 24 hr sennosides 8.6 mg tablet 8.6 mg PO BEDTIME PRN 05/30/20 08/20/20 albuterol sulfate 90 mcg/actuation 90 mcg INHALATION Q4H PRN 06/12/20 08/20/20 aerosol inhaler fluticasone propionate 50 2 spray INTRANASAL DAILY PRN 06/12/20 08/20/20 mcg/actuation nasal spray,suspension loratadine 10 mg tablet 10 mg PO QAM 06/12/20 08/20/20 semaglutide 1 mg/dose (2 mg/1.5 2 mg SUBCUT Q28D 06/12/20 08/20/20 mL) subcutaneous pen injector tramadol 50 mg tablet 50 mg PO TID PRN 06/12/20 08/20/20 blood sugar diagnostic #10 ea 06/28/20 09/02/20 insulin glargine 100 unit/mL (3 8 unit SUBCUT BEDTIME ml 06/28/20 08/20/20 mL) subcutaneous pen lancets 33 gauge #100 ea 06/28/20 09/02/20 pen needle, diabetic 32 gauge x #50 ea 06/28/20 09/02/20 5/32 Jardiance 1 tab PO QAM 08/20/20 08/20/20 trazodone 1 tab PO BEDTIME PRN 08/20/20 08/20/20 Previous Rx's Medication Instructions Recorded repaglinide 1 mg tablet 1 mg PO TID 30 Days #90 tab 06/28/20 apixaban [Eliquis] 2.5 mg PO BID #60 tab 10/22/20 azithromycin 250 mg PO Q OTHER DAY #15 tab 10/22/20 nystatin 500,000 unit PO QID 7 Days #140 ml 10/22/20 omeprazole 20 mg PO DAILY@0630 #30 cap 10/22/20 DS: Summary Hospital Course Hospital Course: Admission note HPI This is a female recently diagnosed with COVID-19 who presents to the emergency department with shortness of breath. She was tested last Thursday (6 days ago) found on as she was positive. Symptoms started 3 days prior to being tested. As well as dry cough. Today she checked her oxygen saturation at home and it was low and her daughter told her to come to the emergency department. Oxygen saturation was documented as low as 68% on room air. She was was tachycardic and tachypneic on arrival. Has improved somewhat on supplemental oxygen, oxygen saturation 88-91% on 12 L nasal cannula. CTA shows chronic interstitial fibrosis, pulmonary nodule, no evidence for PE. COVID 19 test positive, Inflammatory markers elevated ferritin 453, LDH 320, CRP 12.84. She was started on Decadron and the decision was made to admit her for further management Hospital course The patient has prolonged hospital stay up to 64 days. For full details please returned to EMR. In summary, An 79yo F with HTN, DM2, COPD, CAD admitted 08/20/20 for acute hypoxic respiratory failure due to COVID-19 (onset of symptoms 08/11/20, initial positive molecular test 08/14/20) Transferred to ICU 08/22/20 until to 09/04/2020 for ARDS BLE. Treated with BiPAP. DVTs diagnosed 08/28 DNR/DNI 09/02 [facility] status 09/03 repeat molecular test 10/06/20 negative, IgG 10/05/20 positive; taken off of isolation persistent severe hypoxia review with high oxygen requirement which was weaned down as tolerated. # acute and chronic hypoxic respiratory failure post COVID-19 pneumonia Finished primary treatment for COVID-19 infection Weaning down as tolerated, on 6L with sat of 92% this morning. Drops to 80s with exertion but goes back to 90s upon rest. per Pulmonology, O2 sat acceptable down to 85% # DVTs s/p therapeutic LMWH 1 mg/kg bid 08/29-09/21/20, now on apixaban 2.5mg bid, total duration 3 mo until 11/26/2020 # DM2, A1c 8.4 (06/20/20) with hyperglycemia continue Lantus along the rest of her home medications continue to monitor blood sugar for further adjustments of medications. # fungal dermatitis Continue nystatin + Zn oxide # stage 2 sacral pressure ulcer barrier cream to the area and foam dressing, continue to offload and rotate and reposition frequently and special air mattress # mild protein-calorie malnutrition NDD2 regular diet with addition of Ensure supplement Time spent discussing smoking cessation with patient: more than 10 minutes Time Spent with Patient Time attestation: Total time spent providing and/or coordinating discharge services: Discharge coordination time: Greater than 30 minutes Physical Exam Vital Signs: Vital Signs: Last Vital Signs Temp 97.8 F 10/22/20 11:35 Pulse 96 10/22/20 11:35 Resp 20 10/22/20 11:35 BP 115/54 L 10/22/20 11:35 Pulse Ox 99 10/22/20 11:35 Body Mass Index 27.3 Const: Other: Constitutional : Alert, oriented, not in distress Neck : Normal inspection, Supple Cardiovascular : RRR, S1 S2, no lower extremity edema Respiratory : Good bilateral air entry, no crackles, wheezes or rhonchi Gastrointestinal: soft, lax, Normal bowel sounds, Non tender Skin : Warm/Dry, No rash Neurological : Alert & oriented to self, No focal deficit DS: Data Data Completed and Pending Labs on day of discharge: Laboratory Results - last 24 hr 10/21/20 10/21/20 10/22/20 15:57 20:09 07:38 POC Glucose 253 H 268 H 194 H 10/22/20 11:13 POC Glucose 372 H* Discharge Plan Discharge Patient Disposition: Xfer SNF Referrals: [facility] [Outside] Alva Keyes NP [Primary Care Provider] - Discharge Medications: New azithromycin 250 mg Tablet 250 mg PO Q OTHER DAY Qty: 15 RF: 0 nystatin 100,000 unit/mL Suspension 500,000 unit PO QID 7 Days Qty: 140 RF: 0 Eliquis 2.5 mg Tablet 2.5 mg PO BID Qty: 60 RF: 0 omeprazole 20 mg Capsule,Delayed Release(Dr/Ec) 20 mg PO DAILY@0630 Qty: 30 RF: 0 Continued trazodone 50 mg tablet 1 tab PO BEDTIME PRN (Reason: Insomnia) RF: 0 Jardiance 25 mg tablet 1 tab PO QAM RF: 0 semaglutide 1 mg/dose (2 mg/1.5 mL) pen injector 2 mg subcut Q28D RF: 0 tramadol 50 mg tablet 50 mg PO TID PRN (Reason: Pain) RF: 0 loratadine 10 mg tablet 10 mg PO QAM RF: 0 fluticasone propionate 50 mcg/actuation spray,suspension 2 spray intranasal DAILY PRN (Reason: ashma) RF: 0 albuterol sulfate 90 mcg/actuation HFA aerosol inhaler 90 mcg inhalation Q4H PRN (Reason: Wheezing) RF: 0 insulin glargine 100 unit/mL (3 mL) insulin pen 8 unit subcut BEDTIME RF: 0 (DME) lancets 33 gauge misc See Rx Instructions ea .ROUTE .MEDSUPPLY Qty: 100 RF: 0 (DME) blood sugar diagnostic Strip See Rx Instructions ea Not Applicable TID Qty: 10 RF: 0 (DME) pen needle, diabetic 32 gauge x /32 needle See Rx Instructions ea .ROUTE DAILY Qty: 50 RF: 0 repaglinide [Prandin] 1 mg tablet 1 mg PO TID 30 Days Qty: 90 RF: 3 ezetimibe 10 mg tablet 10 mg PO QAM RF: 0 metoprolol succinate 50 mg tablet extended release 24 hr 50 mg PO DAILY RF: 0 atorvastatin 80 mg tablet 80 mg PO BEDTIME RF: 0 calcium carbonate-vitamin D3 600 mg(1,500mg) -400 unit tablet 1 tab PO BID RF: 0 ergocalciferol (vitamin D2) 1,250 mcg (50,000 unit) capsule 1,250 mcg PO Q30D RF: 0 nitroglycerin 0.4 mg tablet, sublingual 0.4 mg sublingual Q5M PRN (Reason: Angina) RF: 0 sennosides 8.6 mg tablet 8.6 mg PO BEDTIME PRN (Reason: constipation) RF: 0 multivitamin with minerals Tablet 1 tab PO QAM RF: 0 oxybutynin chloride 5 mg tablet extended release 24hr 5 mg PO BEDTIME RF: 0 metformin 1,000 mg tablet 1,000 mg PO BID RF: 0 Discontinued clopidogrel 75 mg tablet 75 mg PO DAILY RF: 0 ramipril 10 mg capsule 10 mg PO QAM RF: 0 Discharge Orders: Discharge Order (Routine); Ordered 10/22/20 Ordered By: Reza Garces Diet: advance to usual diet Activity on Discharge: As tolerated Stand Alone Forms: Patient Portal Discharge page Care Plan Goals: Read below Health Concerns: Read below Plan of Treatment: Read below
== END 2020-10-22 15:05 | disposition skilled nursing facility (03) | DRG 871 ==
LOC: HO.ED 13:04 → HO.EDOVER 15:21 → HO.ISO 08-21 07:37 → HO.ICU 08-22 09:41 → HO.IMC 09-06 14:50
PROVIDERS: Anesthesiology; Family Medicine; Hospitalist; Internal Medicine; Internal Medicine Cardiovascular Disease; Internal Medicine Pulmonary Disease; Physician Assistant Medical; Admitting Provider Student in an Organized Health Care Education/Training Program; Emergency Provider Internal Medicine; PCP Nurse Practitioner Family; Visit Provider Student in an Organized Health Care Education/Training Program
DX: A41.89 Other specified sepsis (principal); U07.1 COVID-19; J12.82 Pneumonia due to coronavirus disease 2019; J80 Acute respiratory distress syndrome; E87.3 Alkalosis; E87.0 Hyperosmolality and hypernatremia; R04.2 Hemoptysis; E44.1 Mild protein-calorie malnutrition; R32 Unspecified urinary incontinence; I25.119 Atherosclerotic heart disease of native coronary artery with unspecified angina pectoris; I10 Essential (primary) hypertension; E11.649 Type 2 diabetes mellitus with hypoglycemia without coma; E11.65 Type 2 diabetes mellitus with hyperglycemia; L89.152 Pressure ulcer of sacral region, stage 2; B36.9 Superficial mycosis, unspecified; E78.5 Hyperlipidemia, unspecified; R91.8 Other nonspecific abnormal finding of lung field; Z20.822 Contact with and (suspected) exposure to COVID-19; I82.463 Acute embolism and thrombosis of calf muscular vein, bilateral; Z87.891 Personal history of nicotine dependence; Z68.27 Body mass index [BMI] 27.0-27.9, adult; Z88.5 Allergy status to narcotic agent; Z79.4 Long term (current) use of insulin; Z79.01 Long term (current) use of anticoagulants; Z79.52 Long term (current) use of systemic steroids; Z79.899 Other long term (current) drug therapy; Z66 Do not resuscitate
CPT/HCPCS: 36415; 36600; 71045; 71275; 80048; 80053; 80076; 81001; 82040; 82728; 82803; 82947; 83605; 83615; 83735; 83880; 84100; 84145; 84443; 84484; 85007; 85025; 85027; 85060; 85379; 85610; 85652; 85730; 86021; 86038; 86039; 86140; 86431; 86738; 86769; 87040; 87070; 87205; 87449; 87635; 92610; 93005; 93306; 93970; 94640; 94660; 96361; 96365; 96375; 97110; 97116; 97163; 97530; 99285; 99291; J0696; J1100; J1170; J1650; J1940; J2270; J2920; J2930; J3010; J3411; P9047; Q9967

== ENCOUNTER → 2020-12-31 14:24 | Outpatient (BNVA) | payer MEDICARE, SELFPAY | PROVIDERS: PCP Nurse Practitioner Family; Visit Provider Hospitalist | DX: R91.8 Other nonspecific abnormal finding of lung field (principal); J84.10 Pulmonary fibrosis, unspecified; B94.8 Sequelae of other specified infectious and parasitic diseases; I82.593 Chronic embolism and thrombosis of other specified deep vein of lower extremity, bilateral; J45.40 Moderate persistent asthma, uncomplicated | CPT/HCPCS: 99212 ==

== ENCOUNTER → 2021-03-14 10:53 | Outpatient (BNVA) | payer MEDICARE, SELFPAY | PROVIDERS: PCP Internal Medicine; Visit Provider Orthopaedic Surgery | DX: M75.51 Bursitis of right shoulder (principal) | CPT/HCPCS: 20610; 99212; J1100 ==

== ENCOUNTER 2021-03-27 10:07 | Outpatient (REF) | payer MEDICARE, SELFPAY ==
--- NOTE | ~2021-03-27 | US_ITS ---
EXAMINATION: US VENOUS ULTRASOUND WITH DOPPLER LOWER EXTREMITY, BILATERAL CLINICAL INFORMATION: History of DVT August 2020. Leg pain. COMPARISON: Previous exam August 2020 TECHNIQUE: Ultrasound of the deep veins is performed from the hip to the calf with compression sonography and color and pulse Doppler assessment. Spectral analysis with color-flow imaging is performed. FINDINGS: RIGHT: There is normal venous compression and respiratory variation and augmented flow. The visualized common femoral vein, superficial femoral vein, profunda femoral vein, popliteal vein, and the trifurcation region shows no evidence of deep venous thrombosis. There is no significant popliteal fossa cyst. LEFT: There is normal venous compression and respiratory variation and augmented flow. The visualized common femoral vein, superficial femoral vein, profunda femoral vein, popliteal vein, and the trifurcation region shows no evidence of deep venous thrombosis. There is no significant popliteal fossa cyst. US/US venous duplex LE BI IMPRESSION: No DVT demonstrated in the bilateral lower extremities.
== END 2021-03-27 10:08 | disposition home or self-care (01) ==
LOC: HO.US 10:07
PROVIDERS: PCP Internal Medicine; Visit Provider Hospitalist
DX: I82.403 Acute embolism and thrombosis of unspecified deep veins of lower extremity, bilateral (principal)
CPT/HCPCS: 93970

== ENCOUNTER → 2021-04-02 14:14 | Outpatient (BNVA) | payer MEDICARE, SELFPAY | PROVIDERS: PCP Internal Medicine; Visit Provider Hospitalist | DX: J96.11 Chronic respiratory failure with hypoxia (principal); J41.0 Simple chronic bronchitis; I82.593 Chronic embolism and thrombosis of other specified deep vein of lower extremity, bilateral; B94.8 Sequelae of other specified infectious and parasitic diseases | CPT/HCPCS: 99212 ==

== ENCOUNTER → 2021-04-10 15:12 | Outpatient (BNVA) | payer MEDICARE, SELFPAY | PROVIDERS: PCP Internal Medicine; Visit Provider Internal Medicine | DX: E11.65 Type 2 diabetes mellitus with hyperglycemia (principal); E78.5 Hyperlipidemia, unspecified; I10 Essential (primary) hypertension; Z79.4 Long term (current) use of insulin | CPT/HCPCS: 82947; 83036; 99212 ==

== ENCOUNTER → 2021-04-15 12:24 | Outpatient (BNVA) | payer MEDICARE, SELFPAY | PROVIDERS: PCP Internal Medicine; Referring Provider Internal Medicine; Visit Provider Internal Medicine | DX: R51.9 Headache, unspecified (principal); R42 Dizziness and giddiness; I25.10 Atherosclerotic heart disease of native coronary artery without angina pectoris; J44.9 Chronic obstructive pulmonary disease, unspecified; J96.10 Chronic respiratory failure, unspecified whether with hypoxia or hypercapnia; R91.8 Other nonspecific abnormal finding of lung field; E11.9 Type 2 diabetes mellitus without complications; I10 Essential (primary) hypertension; E78.5 Hyperlipidemia, unspecified; E55.9 Vitamin D deficiency, unspecified; Z88.6 Allergy status to analgesic agent; Z88.5 Allergy status to narcotic agent; Z88.8 Allergy status to other drugs, medicaments and biological substances; Z99.81 Dependence on supplemental oxygen; Z79.4 Long term (current) use of insulin; Z79.899 Other long term (current) drug therapy | CPT/HCPCS: 99212 ==

== ENCOUNTER 2021-06-07 14:10 | Outpatient (REF) | payer MEDICARE, SELFPAY ==
--- NOTE | ~2021-06-07 | XR_ITS ---
EXAMINATION: XR CHEST CLINICAL INFORMATION: Subpleural of other specified infectious process COMPARISON: Previous chest x-rays most recent September [address] scans most recent July 2020 TECHNIQUE: 2 views of the chest were obtained. FINDINGS: The cardiac and mediastinal contours are stable. There is mild biapical scarring. There are increased interstitial markings seen in the lungs. This appears decreased from previous exams. There is a 5 x 10 mm right base pulmonary nodule probably in the right lower lobe. This likely corresponds to pulmonary nodule seen on prior CT scans. There is a 6 mm nodule in the left lower lung. This may represent a calcified pulmonary nodule seen on chest CT. The lungs are otherwise clear. There is no pleural effusion or pneumothorax. There are degenerative changes of the spine. XR/XR chest 2V IMPRESSION: Improved interstitial disease from September 2020 exam. Bibasilar pulmonary nodules probably not changed from previous CT scans.
[2021-06-07 16:37] LABS: Basophils Absolute Auto 0.1 X10*3/uL (0.0-0.2); Basophils Percent Auto 0.6 % (0-2); Eosinophils Absolute Auto 0.2 X10*3/uL (0.0-0.4); Eosinophils Percent Auto 1.4 % (0-4); Hematocrit 41.6 % (37.0-47.0); Hemoglobin 13.4 g/dl (12.0-16.0); Imm Gran Abs Auto 0.04 X10*3/uL (0.00-0.03); Imm Gran Pct Auto 0.3 % (0.0-0.4); MANUAL DIFF FLAG SCAN; Mean Corpuscular HGB Conc 32.2 g/dl (31.0-35.0); Mean Corpuscular Volume 80.6 fL (80.0-98.0); Mean Platelet Volume 9.6 fL (9.4-12.3); Monocytes Absolute Auto 0.8 X10*3/uL (0.1-1.2); Monocytes Percent Auto 5.5 % (2-11); Neutrophils Absolute Auto 4.6 x10*3/uL (2.0-8.3); Neutrophils Percent Auto 33.2 % (45-73); Platelet Count 326 X10*3/uL (160-400); Red Blood Count 5.16 X10*6/uL (4.20-5.50); Red Cell Distribution Width 13.2 % (11.0-16.0); SCAN SMEAR FLAG 1; White Blood Count 13.9 X10*3/uL (4.8-10.8)
[2021-06-07 17:02] LABS: Lymphocytes Absolute Auto 8.2 X10*3/uL (1.2-4.9)
[2021-06-07 17:31] LABS: Vitamin D 25-OH Total 30.5 ng/mL (>30)
[2021-06-07 17:42] LABS: SLIDE REVIEW VERIFIED
[2021-06-07 17:46] LABS: Erythrocyte Sedimentation Rate 5 MM/HR (0-20)
[2021-06-10 11:01] LABS: SARS-COV-2 IgG Spike, Semi-Qnt >100.00 index (<1.00)
== END 2021-06-07 14:11 | disposition home or self-care (01) ==
LOC: HO.LAB 14:10
PROVIDERS: Internal Medicine; PCP Internal Medicine; Visit Provider Hospitalist
DX: B94.8 Sequelae of other specified infectious and parasitic diseases (principal); I82.593 Chronic embolism and thrombosis of other specified deep vein of lower extremity, bilateral; J96.11 Chronic respiratory failure with hypoxia; J41.0 Simple chronic bronchitis; I10 Essential (primary) hypertension; E11.65 Type 2 diabetes mellitus with hyperglycemia; Z79.4 Long term (current) use of insulin
CPT/HCPCS: 36415; 71046; 82306; 85025; 85652; 86769; 99212

== ENCOUNTER → 2021-08-16 12:35 | Outpatient (BNVA) | payer MEDICARE, SELFPAY | PROVIDERS: PCP Internal Medicine; Visit Provider Nurse Practitioner Gerontology | DX: E11.65 Type 2 diabetes mellitus with hyperglycemia (principal); E78.5 Hyperlipidemia, unspecified; I10 Essential (primary) hypertension; Z79.4 Long term (current) use of insulin | CPT/HCPCS: 82947; 83036; 99212 ==

== ENCOUNTER 2021-09-05 13:58 | Outpatient (REF) | payer MEDICARE, SELFPAY ==
--- NOTE | 2021-09-05 17:36 | PFT_ITS ---
FLOWS: FEV1 141% of predicted at 2.33 L. FVC 190% of predicted at 2.65 L. FEV1 to FVC ratio of 0.88. No bronchodilator response. LUNG VOLUMES: Total lung capacity 79% of predicted at 3.64 L. Residual volume 45% of predicted at 1.03 L. Slow vital capacity 111% of predicted at 2.61 L. Expiratory reserve volume 240% of predicted at 0.91 L. Diffusion capacity is moderately decreased. IMPRESSION: Mild restrictive ventilatory defect with no bronchodilator response. Decreased diffusion capacity together with restrictive ventilatory defect suggest underlying pulmonary parenchymal disease. Clinical correlation is advised. MD MIRELLA Magaña/MODL / [id number] MTDD
== END 2021-09-05 13:59 | disposition home or self-care (01) ==
LOC: HO.RESP 13:58
PROVIDERS: PCP Internal Medicine; Visit Provider Hospitalist
DX: B94.8 Sequelae of other specified infectious and parasitic diseases (principal); J41.0 Simple chronic bronchitis; J96.11 Chronic respiratory failure with hypoxia; I82.593 Chronic embolism and thrombosis of other specified deep vein of lower extremity, bilateral
CPT/HCPCS: 94060; 94727; 94729; 99212

== ENCOUNTER 2021-11-05 14:06 | Emergency (ER) | payer OTHER, SELFPAY ==
--- NOTE | ~2021-11-05 | US_ITS ---
EXAMINATION: US SOFT TISSUE NECK CLINICAL INFORMATION: Left neck pain, tender to palpation for 10 months COMPARISON: None TECHNIQUE: Ultrasound of the left neck soft tissues is performed with high- frequency minaya-scale imaging and color Doppler. FINDINGS: The thyroid was not examined. Scattered architecturally normal level 2 lymph nodes are seen with the largest measuring only 1.2 x 0.5 x 0.9 cm. The nodes show normal fatty hilus, normal cortical thickness, and no cystic change or calcification. No abnormal color flow. US/US soft tiss head and/or neck IMPRESSION: 1. Multiple morphologically normal-appearing small level 2 neck lymph nodes on the left the largest measuring 1.2 x 0.5 x 0.9 cm. 2. If clinically indicated further evaluation of the neck soft tissues and nodes may be performed with CT soft tissue neck with intravenous contrast.
[2021-11-05 14:53] VITALS: BP 120/62; PULSE 101; RESP 19; TEMP 36.9; O2SAT 94; BMI 21.1
--- NOTE | 2021-11-05 16:28 | ED_ITS ---
HPI - General Adult General Chief complaint: General Medical Stated complaint: throat pain Time Seen by Provider: 11/05/21 15:44 Source: patient Mode of arrival: other (walker) Limitations: language barrier History of Present Illness HPI narrative: 80-year-old female with a past medical history of diabetes, atherosclerotic cardiovascular disease, COPD on oxygen, post COVID-19 syndrome, chronic respiratory failure, hypertension, hyperlipidemia, who is on Eliquis and Plavix presents for left-sided throat pain that she has had for the last 10 months. Patient states she has had this left-sided throat pain since she had COVID and was hospitalized 10 months ago. States it feels like food sometimes gets trot caught in her throat. She can swallow and is able to eat and drink. No voice changes, no fever, no ear pain, no chest pain, no shortness of breath. Patient is [place]-speaking, and is frustrated because she was referred to an [facility] but when they call for the appointment the patient does not speak Sami and so could not make the appointment. Related Data Home Medications Medication Instructions Recorded Confirmed atorvastatin 80 mg tablet 80 mg PO BEDTIME 05/30/20 10/07/21 calcium carbonate 600 mg-vitamin 1 tab PO BID 05/30/20 10/07/21 D3 10 mcg (400 unit) tablet ergocalciferol (vitamin D2) 1,250 1,250 mcg PO Q30D 05/30/20 10/07/21 mcg (50,000 unit) capsule ezetimibe 10 mg tablet 10 mg PO QAM 05/30/20 10/07/21 metformin 1,000 mg tablet 1,000 mg PO BID 05/30/20 10/07/21 metoprolol succinate 50 mg 25 mg PO DAILY 05/30/20 10/07/21 tablet,extended release 24 hr multivitamin with minerals 1 tab PO QAM 05/30/20 10/07/21 nitroglycerin 0.4 mg sublingual 0.4 mg SUBLINGUAL Q5M PRN 05/30/20 10/07/21 tablet oxybutynin chloride 5 mg 5 mg PO BEDTIME 05/30/20 10/07/21 tablet,extended release 24 hr sennosides 8.6 mg tablet 8.6 mg PO BEDTIME PRN 05/30/20 10/07/21 albuterol sulfate 90 mcg/actuation 90 mcg INHALATION Q4H PRN 06/12/20 10/07/21 aerosol inhaler fluticasone propionate 50 2 spray INTRANASAL DAILY PRN 06/12/20 10/07/21 mcg/actuation nasal spray,suspension loratadine 10 mg tablet 10 mg PO QAM 06/12/20 10/07/21 tramadol 50 mg tablet 50 mg PO TID PRN 06/12/20 10/07/21 pen needle, diabetic 32 gauge x #50 ea 06/28/20 10/07/21 trazodone 50 mg tablet 1 tab PO BEDTIME PRN 08/20/20 10/07/21 clopidogrel 75 mg tablet 75 mg PO DAILY 12/31/20 10/07/21 semaglutide 1 mg/dose (2 mg/1.5 1 mg SUBCUT QWEEK 08/16/21 10/07/21 mL) subcutaneous pen injector repaglinide 1 mg tablet 1 tab PO TID 10/07/21 10/07/21 Previous Rx's Medication Instructions Recorded apixaban 2.5 mg tablet (Eliquis) 2.5 mg PO BID #60 tab 10/22/20 nystatin 100,000 unit/mL oral 500,000 unit PO QID 7 Days #140 ml 10/22/20 suspension blood sugar diagnostic (FreeStyle #100 ea 05/23/21 Lite Strips) lancets 33 gauge (TRUEplus Lancets) #100 ea 05/23/21 benzonatate 200 mg capsule 200 mg PO BID PRN 30 Days #60 cap 06/07/21 dextromethorphan-guaifenesin 5 10 ml PO Q6H PRN 14 Days #300 ml 06/07/21 mg-100 mg/5 mL oral liquid (Child Robitussin Cough-Chest DM) Allergies Allergy/AdvReac Type Severity Reaction Status Date / Time codeine [Codeine] Allergy Mild DIZZINESS, Verified 11/05/21 14:57 VOMITING insulin lispro Allergy Unknown NAUSEA & Verified 11/05/21 14:57 [INSULIN LISPRO] VOMITING oxycodone [OXYCODONE] Allergy Unknown NAUSEA & Verified 11/05/21 14:57 VOMITING Review of Systems Constitutional: Constitutional: Denies body ache(s), Denies chills, Denies fatigue, Denies fever(s), Denies headache(s), Denies malaise and Denies weakness Eyes: Eyes: Denies diplopia ENT: Denies vertigo, Denies dizziness, Denies otalgia, Denies headache(s), Denies mouth pain, Denies post nasal drip, Denies sinus pain, Denies sinus pressure, Reports sore throat and Reports throat swelling Cardiovascular: Cardiovascular: Denies chest pain, Denies syncope, Denies leg edema, Denies lightheadedness, Denies Loss of Consciousness, Denies palpitations and Denies dyspnea Respiratory: Respiratory: Denies chest congestion, Denies cough and Denies dyspnea Gastrointestinal: Gastrointestinal: Denies abdominal pain, Denies hematochezia, Denies constipation, Denies diarrhea and Denies vomiting Musculoskeletal: Musculoskeletal: Reports no additional musculoskeletal complaints Neurologic: Denies confusion, Denies vertigo, Denies dizziness, Denies syncope, Denies headache(s) and Denies weakness Psychiatric: Psychiatric: Denies anxiety, Denies confusion and Denies depression Endocrine: Endocrine: Denies fatigue and Denies palpitations Allergic/Immunologic: Allergic/Immunologic: Reports throat swelling [facility] Past Medical History Medical History Angina pectoris Asthma Atherosclerotic cardiovascular disease Bursitis of right shoulder Chronic respiratory failure Chronic respiratory failure COPD (chronic obstructive pulmonary disease) DVT, bilateral lower limbs Essential hypertension Fungal dermatitis High cholesterol HLD (hyperlipidemia) HTN (hypertension) Hyperlipidemia, unspecified 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 Pressure ulcer of sacral region, stage 2 Pulmonary fibrosis Pulmonary nodules T2DM (type 2 diabetes mellitus) Type 2 diabetes mellitus with unspecified complications Vitamin D deficiency Surgical History History of bunionectomy History of total abdominal hysterectomy and bilateral salpingo-oophorectomy Hx of colonoscopy Family History Family History (Updated 10/07/21 @ 13:45 by Letty Queen CMA) Mother HTN (hypertension) Brother Lung cancer Daughter Breast cancer Maternal Aunt Breast cancer Daughter Eye cancer Social History Social History (Updated 10/07/21 @ 13:46 by Letty Queen CMA) Household Members: None Housing: Apartment Housing Other:: [facility] Are you a primary animal care supervisor to a significant other at home: No Do 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 have 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 or 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) Alcohol intake: never Patient Tobacco Use Status: Former Tobacco user Second Hand Smoke Exposure: No Advance Directives: No Advance Directives Information Provided: No service: No Current occupational status: retired Physical Exam ED Vital Signs: Vital Signs - 24 hr 11/05/21 14:53 11/05/21 17:15 Temperature 98.4 F Pulse Rate 101 H 77 Respiratory Rate 19 16 Blood Pressure 120/62 131/75 Pulse Oximetry 94 95 BMI result Body Mass Index 21.1 Const General: no acute distress, alert and awake; No confusion Nutritional Appearance: cachectic Orientation/consciousness: patient oriented x3 and No confusion Limitations: language barrier HENMT Head: Yes normal to inspection, Yes No palpable skull fracture present, Yes normocephalic and Yes atraumatic Ears: hearing grossly normal bilaterally, TM's normal bilaterally and EAC's normal General nose exam: Normal external nose present Face and sinus: Yes normal facial exam and Yes sinuses nontender Mouth: moist mucous membranes Throat: Yes uvula midline, Yes abnormal tonsil and Yes posterior oropharynx abnormal Eyes Conjunctivae: conjunctivae normal Pupils: Equal, round and reactive pupils present EOM: EOMs intact bilaterally Neck Other: anterior neck pain, left side Neck: Yes normal visual inspection, Yes full ROM, Yes no lymphadenopathy, Yes no meningeal signs, Yes trachea midline and Yes supple Resp Effort & Inspection: normal respiratory effort and able to speak in complete sentences Auscultation: clear to auscultation bilaterally Cardio Rate: regular rate Rhythm: regular rhythm GI Palpation (GI): Soft to palpation, nontender, no guarding and not rigid Skin General skin exam: no rashes or lesions noted Neuro General: patient oriented x3, no meningeal signs and No confusion Cranial nerves: Yes Equal, round and reactive pupils present Extrem General: Yes normal to inspection and Yes full ROM Psych Appearance: well kempt Mental Status: mental status grossly normal Affect: Sad affect present and Anxious affect present Course Course Course Narrative: 80-year-old female presents for 10 months of left-sided throat pain and throat swelling. Patient had COVID 10 months ago and since then has had pain in her anterior left neck. No trismus, no inability to swallow. She was referred to ENT but could not get an appointment due to the language barrier. On exam, patient tender to palpate left anterior neck, mild erythematous and swollen left tonsil. Will get strep, COVID, ultrasound left anterior neck, have patient follow-up with ENT. Tried to call Dr Pereira's office to be sure they had an asphalt spreader operator available for this patient, however they close at 15:00. Reevaluation(s) Reevaluation #1: Patient is negative for both COVID and strep. Ultrasound is unremarkable. Will have patient follow up with ENT Gave return precautions US/US soft tiss head and/or neck IMPRESSION: 1. Multiple morphologically normal-appearing small level 2 neck lymph nodes on the left the largest measuring 1.2 x 0.5 x 0.9 cm. 2. If clinically indicated further evaluation of the neck soft tissues and nodes may be performed with CT soft tissue neck with intravenous contrast. Medical Decision Making Lab Data Labs: Lab Results 11/05/21 11/05/21 Range/Units 16:40 16:40 COVID-19 (MATEO) Negative (Negative) COVID-19 Clin Com See Note S. pyogenes GrpA DARRELL Negative (Negative) Discharge Plan Discharge Clinical Impression: Chronic throat pain Patient Disposition: Home, Self-Care Additional Instructions: Your COVID test in your strep test were both negative today. The ultrasound showed no abnormalities. Please call the ear nose throat doctor at [phone] I did try to call their office to let them know you must be contacted in [place], however they were closed for the day. Please return to emergency room if you have any new or concerning symptoms Oleary prueba de COVID en oleary prueba de estreptococos fue negativa hoy. La ecograf?a no mostr? anomal?as. Llame al m?dico de o?do, nariz y garganta al [phone] Intent? llamar a olaery oficina para informarles que deben contactarlo en espa?ol, sin embargo, estaban cerrados por el d?a. Regrese a la eliezer de emergencias si tiene s?ntomas nuevos o preocupantes. Prescriptions: No Action (DME) FreeStyle Lite Strips Strip See Rx Instructions ea Not Applicable TID Qty: 100 11RF Rx Instructions: As directed..Test blood sugar 3x per day. (DME) lancets [TRUEplus Lancets] 33 gauge misc See Rx Instructions ea .ROUTE .MEDSUPPLY Qty: 100 11RF Rx Instructions: As directed..Test blood sugar 3x per day. repaglinide 1 mg tablet 1 tab PO TID 0RF trazodone 50 mg tablet 1 tab PO BEDTIME PRN (Reason: Insomnia) 0RF nystatin 100,000 unit/mL Suspension 500,000 unit PO QID 7 Days Qty: 140 0RF Protocol: Apply to: Apply to: oral Eliquis 2.5 mg Tablet 2.5 mg PO BID Qty: 60 0RF tramadol 50 mg tablet 50 mg PO TID PRN (Reason: Pain) 0RF loratadine 10 mg tablet 10 mg PO QAM 0RF fluticasone propionate 50 mcg/actuation spray,suspension 2 spray intranasal DAILY PRN (Reason: ashma) 0RF albuterol sulfate 90 mcg/actuation HFA aerosol inhaler 90 mcg inhalation Q4H PRN (Reason: Wheezing) 0RF clopidogrel 75 mg tablet 75 mg PO DAILY 0RF semaglutide 1 mg/dose (2 mg/1.5 mL) pen injector 1 mg subcut QWEEK 0RF (DME) pen needle, diabetic 32 gauge x 5/32 needle See Rx Instructions ea .ROUTE DAILY Qty: 50 0RF Rx Instructions: As directed ezetimibe 10 mg tablet 10 mg PO QAM 0RF metoprolol succinate 50 mg tablet extended release 24 hr 25 mg PO DAILY 0RF atorvastatin 80 mg tablet 80 mg PO BEDTIME 0RF calcium carbonate-vitamin D3 600 mg(1,500mg) -400 unit tablet 1 tab PO BID 0RF ergocalciferol (vitamin D2) 1,250 mcg (50,000 unit) capsule 1,250 mcg PO Q30D 0RF nitroglycerin 0.4 mg tablet, sublingual 0.4 mg sublingual Q5M PRN (Reason: Angina) 0RF sennosides 8.6 mg tablet 8.6 mg PO BEDTIME PRN (Reason: constipation) 0RF multivitamin with minerals Tablet 1 tab PO QAM 0RF oxybutynin chloride 5 mg tablet extended release 24hr 5 mg PO BEDTIME 0RF metformin 1,000 mg tablet 1,000 mg PO BID 0RF benzonatate 200 mg capsule 200 mg PO BID PRN (Reason: cough) 30 Days Qty: 60 5RF Chld Robitussin Cough-Chest DM 5-100 mg/5 mL liquid 10 ml PO Q6H PRN (Reason: cough) 14 Days Qty: 300 2RF Referrals: Chilango Pereira [Physician] - (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
[2021-11-05 16:58] LABS: IDNOW Serial# 08D9AD1C; Strep A Nucleic Acid Negative (Negative)
[2021-11-05 17:03] LABS: COVID-19 Test Negative (Negative); IDNOW Serial# 55D5AD1C
[2021-11-05 17:15] VITALS: BP 131/75; PULSE 77; RESP 16; O2SAT 95
== END 2021-11-05 17:34 | disposition home or self-care (01) ==
PROVIDERS: Physician Assistant; Emergency Provider Emergency Medicine; PCP Internal Medicine
DX: J31.2 Chronic pharyngitis (principal); Z20.822 Contact with and (suspected) exposure to COVID-19; E11.9 Type 2 diabetes mellitus without complications; I10 Essential (primary) hypertension
CPT/HCPCS: 76536; 87635; 87651; 99283; 99284

== ENCOUNTER 2021-12-18 09:01 | Outpatient (REF) | payer OTHER, SELFPAY ==
[2021-12-18 11:25] LABS: Alanine Aminotransferase 14 U/L (0-31); Albumin Level 3.9 g/dL (3.5-5.0); Alkaline Phosphatase 78 U/L (39-117); Anion Gap 12 (12-20); Aspartate Amino Transferase 16 U/L (5-31); Bilirubin Total 1.4 mg/dL (0.0-1.0); Blood Urea Nitrogen 12 mg/dL (9-16); Calcium 9.6 mg/dL (8.4-10.2); Carbon Dioxide 27 mmol/L (22-29); Chloride 106 mmol/L (96-108); Cholesterol 217 mg/dL; Estimated Glomerular Filt Rate > 60; Glucose Fasting 163 mg/dL (60-99); HDL Cholesterol 54 mg/dL; LDL Cholesterol Calculated 145 mg/dl; Potassium 4.3 mmol/L (3.3-5.1); Sodium 141 mmol/L (135-145); Total Protein 7.2 g/dL (6.5-8.0); Triglycerides 92 mg/dL
[2021-12-18 11:37] LABS: Creatinine Urine 123.61 mg/dL; Microalbum/Creatinine Ratio Ur 10.5 ug/mg cr
[2021-12-20 01:17] LABS: LDL Cholesterol Direct 141 mg/dL (<100)
== END 2021-12-18 09:02 | disposition home or self-care (01) ==
LOC: HO.10HDL 09:01
PROVIDERS: Visit Provider Nurse Practitioner Gerontology
DX: E11.65 Type 2 diabetes mellitus with hyperglycemia (principal); Z79.4 Long term (current) use of insulin
CPT/HCPCS: 36415; 80053; 80061; 82043; 83721

== ENCOUNTER 2022-01-02 12:09 | Outpatient (REF) | payer OTHER, SELFPAY ==
--- NOTE | ~2022-01-02 | MM_ITS ---
EXAMINATION: MM SCREENING DIGITAL BREAST TOMOSYNTHESIS, BILATERAL CLINICAL INFORMATION: Screening. Asymptomatic. The lifetime risk of breast cancer based on the Tyrer-Cuzick Model is 0.7%. COMPARISON: Mammography: September 07, 2019 and studies dating back to May 02, 2014 TECHNIQUE: Digital breast tomosynthesis is performed in both the craniocaudal and mediolateral oblique views along with computer-aided detection (CAD). Synthesized 2D images are generated from the tomosynthesis. FINDINGS: The breasts are heterogeneously dense, which may obscure small masses (ACR BI-RADS breast composition Category c). There are no significant masses, abnormal calcifications, or other abnormalities. MM/MM tomosynthesis screening BI IMPRESSION: There are no significant changes from prior study. ASSESSMENT: BI-RADS 1: Negative RECOMMENDATION: Routine annual mammography screening. This patient's information was entered into a reminder system with a target due date for their next mammogram.
== END 2022-01-02 12:10 | disposition home or self-care (01) ==
LOC: HO.MAMMO 12:09
PROVIDERS: Visit Provider Internal Medicine
DX: Z12.31 Encounter for screening mammogram for malignant neoplasm of breast (principal)
CPT/HCPCS: 77063; 77067

== ENCOUNTER 2022-02-05 12:50 | Outpatient (REF) | payer OTHER, SELFPAY ==
--- NOTE | ~2022-02-05 | XR_ITS ---
EXAMINATION: XR SHOULDER, RIGHT CLINICAL INFORMATION: M25.511 - Pain in right shoulder COMPARISON: Radiographs right shoulder 06/11/2020 TECHNIQUE: Right shoulder is imaged in 3 views. FINDINGS: No fracture, dislocation, destructive process. The acromioclavicular alignment normal. No significant joint narrowing and no erosive changes. There is mild narrowing greater tuberosity. No visible rotator cuff calcifications. XR/XR shoulder RT min 2V IMPRESSION: Mild spurring greater tuberosity. No visible rotator cuff calcifications.
== END 2022-02-05 12:51 | disposition home or self-care (01) ==
LOC: HO.HOSX 12:50
PROVIDERS: Visit Provider Physician Assistant
DX: M75.81 Other shoulder lesions, right shoulder (principal)
CPT/HCPCS: 20610; 73030; 99202; J1020

== ENCOUNTER 2022-03-06 12:13 | Outpatient (REF) | payer OTHER, SELFPAY ==
--- NOTE | ~2022-03-06 | XR_ITS ---
EXAMINATION: XR CHEST 2 VIEWS CLINICAL INFORMATION: Chronic respiratory failure. COMPARISON: Chest radiographs dated 06/07/2021; CTA chest dated 08/20/2020. TECHNIQUE: Frontal and lateral views of the chest were obtained. FINDINGS: There is biapical pleural and parenchymal scarring. There are persistent emphysematous changes. Bilateral lower lobe nodules are redemonstrated, consistent with CT findings dated 08/20/2020 (8:269 and 305). There is again biapical pleural and parenchymal scarring. No new infiltrate, effusion or pneumothorax is seen. There is no acute osseous abnormality. XR/XR chest 2V IMPRESSION: Stable abnormal examination, without superimposed infiltrate or congestive heart failure.
== END 2022-03-06 12:14 | disposition home or self-care (01) ==
LOC: HO.XRAY 12:13
PROVIDERS: PCP Internal Medicine; Visit Provider Hospitalist
DX: B94.8 Sequelae of other specified infectious and parasitic diseases (principal); I82.593 Chronic embolism and thrombosis of other specified deep vein of lower extremity, bilateral; J96.11 Chronic respiratory failure with hypoxia; J41.0 Simple chronic bronchitis; R91.1 Solitary pulmonary nodule
CPT/HCPCS: 71046; 99212

== ENCOUNTER → 2022-04-14 13:41 | Outpatient (BNVA) | payer OTHER, SELFPAY | PROVIDERS: PCP Internal Medicine; Referring Provider Internal Medicine; Visit Provider Internal Medicine | DX: I25.10 Atherosclerotic heart disease of native coronary artery without angina pectoris (principal); I10 Essential (primary) hypertension; E78.5 Hyperlipidemia, unspecified; E11.9 Type 2 diabetes mellitus without complications; Z79.02 Long term (current) use of antithrombotics/antiplatelets; Z79.899 Other long term (current) drug therapy | CPT/HCPCS: 93005; 99212 ==

== ENCOUNTER 2022-04-22 16:17 | Outpatient (REF) | payer OTHER, SELFPAY ==
--- NOTE | ~2022-04-22 | CT_ITS ---
EXAMINATION: CT CHEST WITHOUT CONTRAST CLINICAL INFORMATION: Solitary pulmonary nodule. COMPARISON: Chest x-ray 03/06/2022. CTA chest 08/20/2020 TECHNIQUE: Multidetector volumetric CT imaging of the chest was done. Axial MIP volume rendering provided. Sagittal and coronal reformatted images were obtained. This CT examination was performed using dose optimization techniques as appropriate, variously including the following: *Automated exposure control *Adjustment of mA and/or kV according to patient size (this includes techniques or standardized protocols for targeted exams where dose is matched to indication/reason for exam; i.e. extremities or head) *Use of iterative reconstruction technique DLP: 89 mGy-cm FINDINGS: PARTS COUNTERPERSON: Hypoexpanded lungs. LUNGS: There is diffuse paraseptal emphysema with prominent peripheral-based reticular interstitial prominence in both upper lobes and cystic bullous changes in the lung apices. There is bilateral apical calcification with parenchymal scarring, it appears more prominent. Previously seen honeycombing appearance in both lower lobes and both upper lobes have significantly improved. A few cystic lung changes are seen scattered in both lower lobes. There is a ill-defined nodule in the right lower lobe measuring 1.0 cm on axial image 256/9. Previously it measured the same size on axial image 33/6. There is a 1.5 cm elliptical lesion in the right lower lobe on axial image 33/4 measuring 1.7 cm on the previous exam on axial image 33/6. There is 9 mm cavitary lesion in the right upper lobe on axial image 26/4, new since the previous study. A new 1.0 cm lesion seen in the lingula on axial image 337/9 not seen on previous study. MEDIASTINUM: Central trachea and the bronchi are3 widely patent. The thyroid lobes are symmetric and normal. No abnormal size mediastinal or hilar lymph nodes seen. There is no pericardial effusion. CORONARY ARTERY CALCIFICATION: Moderate coronary artery calcifications are seen. PLEURA: There is no pleural effusion, mass, thickening or calcification. AXILLA: No lymphadenopathy. UPPER ABDOMEN: Visualized liver, spleen, pancreas and bilateral adrenal glands are unremarkable. OSSEOUS STRUCTURES: No aggressive lytic or sclerotic process seen. CT/CT chest wo IV con IMPRESSION: Emphysematous lungs as before. Previously seen significant honeycombing and ground-glass attenuation in both upper and lower lobes have drastically improved. There are nodules in right lower lobe which are unchanged. There are new nodules in the lingula and a cavitary nodule in the right upper lobe anteriorly. Cystic bullous changes in both lower lobes predominantly in the upper lobes anterior segments are stable. Peripheral reticular interstitial changes in both upper lobes and apical pleural thickening and scarring is stable. Bilateral apical pleural calcifications, thickening and apical parenchymal scarring, slightly more prominent than the previous study. Fleischner guidelines were followed.
== END 2022-04-22 16:18 | disposition home or self-care (01) ==
LOC: HO.CT 16:17
PROVIDERS: PCP Internal Medicine; Visit Provider Hospitalist
DX: R91.1 Solitary pulmonary nodule (principal)
CPT/HCPCS: 71250

== ENCOUNTER 2022-06-16 16:30 | Outpatient (REF) | payer OTHER, SELFPAY ==
--- NOTE | ~2022-06-16 | XR_ITS ---
EXAMINATION: XR ABDOMEN COMPLETE CLINICAL INDICATION: R10.9 - Unspecified abdominal pain COMPARISON: CT chest noncontrast 04/22/2022 TECHNIQUE: Supine and upright views of the abdomen are obtained in 3 views. FINDINGS: There is scattered gas in the bowel of normal caliber. No differential air-fluid levels or free air. No abnormal collections of gas. No visible pneumatosis. The lung bases show no definite airspace consolidation and no effusion. The costophrenic sulci are clear. There are multilevel degenerative changes lumbar spine and mild to moderate degenerative changes bilateral hips. No visible urinary tract calculi. XR/XR abdomen min 2V IMPRESSION: 1. No obstruction or abnormal collections of gas. 2. Lung bases grossly clear. No effusion.
== END 2022-06-16 16:31 | disposition home or self-care (01) ==
LOC: HO.XRAY 16:30
PROVIDERS: PCP Internal Medicine; Visit Provider Hospitalist
DX: R10.9 Unspecified abdominal pain (principal); R91.1 Solitary pulmonary nodule; J41.0 Simple chronic bronchitis; J96.11 Chronic respiratory failure with hypoxia; I82.593 Chronic embolism and thrombosis of other specified deep vein of lower extremity, bilateral; B94.8 Sequelae of other specified infectious and parasitic diseases
CPT/HCPCS: 74019; 99212

== ENCOUNTER 2022-08-18 10:09 | Outpatient (REF) | payer OTHER, SELFPAY ==
[2022-08-18 14:57] VITALS: BMI 22.3
[2022-08-18 14:59] VITALS: BP 152/64; PULSE 92; RESP 16; TEMP 37.3; O2SAT 97
== END 2022-08-18 10:10 | disposition home or self-care (01) ==
LOC: HO.MS 10:09
PROVIDERS: PCP Internal Medicine; Visit Provider Ophthalmology
PROC: (CPT 66821; principal; 2022-08-18 13:50)
DX: H26.491 Other secondary cataract, right eye (principal); E11.9 Type 2 diabetes mellitus without complications; I10 Essential (primary) hypertension
CPT/HCPCS: 66821

== ENCOUNTER 2022-09-08 13:22 | Outpatient (REF) | payer OTHER, SELFPAY ==
[2022-09-08 13:34] VITALS: BMI 23.0
[2022-09-08 13:38] VITALS: BP 126/61; PULSE 93; RESP 16; TEMP 36.9; O2SAT 94
== END 2022-09-08 13:23 | disposition home or self-care (01) ==
LOC: HO.MS 13:22
PROVIDERS: PCP Internal Medicine; Visit Provider Ophthalmology
PROC: (CPT 66821; principal; 2022-09-08 15:10)
DX: H26.492 Other secondary cataract, left eye (principal)
CPT/HCPCS: 66821

== ENCOUNTER → 2022-10-13 15:46 | Outpatient (BNVA) | payer OTHER, SELFPAY | PROVIDERS: PCP Internal Medicine; Visit Provider Hospitalist | DX: J96.11 Chronic respiratory failure with hypoxia (principal); J41.0 Simple chronic bronchitis; R91.1 Solitary pulmonary nodule; I10 Essential (primary) hypertension; I82.593 Chronic embolism and thrombosis of other specified deep vein of lower extremity, bilateral; R63.4 Abnormal weight loss; Z99.81 Dependence on supplemental oxygen | CPT/HCPCS: 99212 ==

== ENCOUNTER 2022-10-14 16:03 | Outpatient (REF) | payer OTHER, SELFPAY ==
--- NOTE | ~2022-10-14 | XR_ITS ---
EXAMINATION: XR LUMBAR SPINE XR LEFT HIP CLINICAL INFORMATION: Left-sided pain and left-sided low back pain COMPARISON: Radiograph of pelvis from 02/15/2020 TECHNIQUE: Lumbar spine, 3 views Left hip, 2 views FINDINGS: Lumbar spine: No acute abnormality. There are 5 segmented vertebra of the lumbar spine. The vertebral body heights are maintained. No vertebral compression fractures or pars interarticularis defects. Moderate discovertebral degenerative changes at multiple levels and mild dextrocurvature of the lumbar spine. At L5-S1, there is moderate-to severe loss of the disc space, vacuum disc phenomenon, endplate sclerosis and osteophytosis. 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 There is approximately 0.4 cm of degenerative anterolisthesis and mild right lateral listhesis at L4-5. There is minimal left lateral listhesis retrolisthesis of L2 on L3. Otherwise, lumbar vertebra have normal alignment. The sacrum and sacroiliac joints are intact. There is atherosclerotic calcification of the abdominal aorta and iliac arteries. Left hip: The femoral head is well-positioned within the acetabulum. The hip joint space is maintained. There are no findings of any significant degenerative or inflammatory arthropathy of the left hip. No proximal femoral fracture or osteonecrosis. XR/XR hip LT min 2V IMPRESSION: * Mild dextrocurvature of the degenerated lumbar spine. No acute findings. No compression fractures. * The degenerative disc disease is worst/severe at the L5-S1 level. * Mild vertebral subluxations are noted at L2-L3 and L4-L5. * Left hip is unremarkable.
--- NOTE | ~2022-10-14 | XR_ITS ---
EXAMINATION: XR LUMBAR SPINE XR LEFT HIP CLINICAL INFORMATION: Left-sided pain and left-sided low back pain COMPARISON: Radiograph of pelvis from 02/15/2020 TECHNIQUE: Lumbar spine, 3 views Left hip, 2 views FINDINGS: Lumbar spine: No acute abnormality. There are 5 segmented vertebra of the lumbar spine. The vertebral body heights are maintained. No vertebral compression fractures or pars interarticularis defects. Moderate discovertebral degenerative changes at multiple levels and mild dextrocurvature of the lumbar spine. At L5-S1, there is moderate-to severe loss of the disc space, vacuum disc phenomenon, endplate sclerosis and osteophytosis. 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 There is approximately 0.4 cm of degenerative anterolisthesis and mild right lateral listhesis at L4-5. There is minimal left lateral listhesis retrolisthesis of L2 on L3. Otherwise, lumbar vertebra have normal alignment. The sacrum and sacroiliac joints are intact. There is atherosclerotic calcification of the abdominal aorta and iliac arteries. Left hip: The femoral head is well-positioned within the acetabulum. The hip joint space is maintained. There are no findings of any significant degenerative or inflammatory arthropathy of the left hip. No proximal femoral fracture or osteonecrosis. XR/XR lumbar spine 2-3V IMPRESSION: * Mild dextrocurvature of the degenerated lumbar spine. No acute findings. No compression fractures. * The degenerative disc disease is worst/severe at the L5-S1 level. * Mild vertebral subluxations are noted at L2-L3 and L4-L5. * Left hip is unremarkable.
== END 2022-10-14 16:04 | disposition home or self-care (01) ==
LOC: HO.XRAY 16:03
PROVIDERS: Visit Provider Emergency Medicine
DX: M25.552 Pain in left hip (principal); M54.42 Lumbago with sciatica, left side
CPT/HCPCS: 72100; 73502

== ENCOUNTER 2022-12-11 15:28 | Emergency (ER) | payer OTHER, SELFPAY ==
--- NOTE | ~2022-12-11 | CT_ITS ---
EXAMINATION: CT ABDOMEN AND PELVIS WITH CONTRAST CLINICAL INFORMATION: Lower abdominal pain COMPARISON: None available. TECHNIQUE: Multidetector volumetric images were obtained from the superior aspect of the liver through the pubic symphysis following administration 85 mL of Omnipaque 350 intravenous contrast. Sagittal and coronal reformatted images were obtained on the technologist's workstation. Oral contrast: No This CT examination was performed using dose optimization techniques as appropriate, variously including the following: *Automated exposure control *Adjustment of mA and/or kV according to patient size (this includes techniques or standardized protocols for targeted exams where dose is matched to indication/reason for exam; i.e. extremities or head) *Use of iterative reconstruction technique DLP: 345 mGy-cm FINDINGS: LUNG BASES: There is diffuse emphysematous changes of both lungs with bilateral ill-defined nodules a 7 mm right lower lobe image 1/24 1.5 cm right lower lobe elliptical nodule image 24 1.2 cm nodule right lower lobe axial image 11/17. These nodules are essentially stable compared to 04/22/2022. LIVER, GALLBLADDER, AND BILIARY TREE: The liver is normal in size, shape, and attenuation. No focal hepatic lesion or biliary ductal dilatation is present. The gallbladder is unremarkable with no evidence of radiopaque gallstones, gallbladder wall thickening, or obvious pericholecystic inflammatory changes. PANCREAS: Unremarkable. SPLEEN: Unremarkable. ADRENAL GLANDS: Unremarkable. KIDNEYS AND URETERS: The kidneys are normal in size, shape, and attenuation. No hydronephrosis, hydroureter, or calculi seen. No perinephric stranding. There is a 2 cm cyst mid to lower pole right kidney and tiny 4 mm cyst upper and lower pole left kidney. BLADDER: Unremarkable. GASTROINTESTINAL TRACT: There is scattered stool, diverticuli and gas seen throughout the colon without significant distention or diverticulitis. There is a soft tissue mass or stool in the right ascending colon. The small bowel loops are normal caliber appendix is not visualized. ABDOMINAL WALL: No significant hernia is appreciated. LYMPH NODES: Normal. VASCULAR: There is atherosclerotic calcification of abdominal aorta and common iliac arteries without aneurysmal dilatation. PELVIC VISCERA: The prostate gland is normal size. There is scattered phleboliths in left pelvis.. OSSEOUS STRUCTURES: No aggressive lytic or sclerotic process seen. There is mild ventral spondylosis L3-L4, L4-L5 and L5/S1 disc levels. There is vacuum disc phenomena L4-L5 and L5/S1 disc levels. CT/CT abdomen pelvis w IV con IMPRESSION: 1. Colonic diverticulosis without diverticulitis. Mild constipation. 2. Bilateral renal cysts. No radiopaque urolith or hydroureteronephrosis. 3. Bilateral pulmonary nodules are stable. Fleischner guidelines were followed.
[2022-12-11 15:40] VITALS: BP 138/63; BP 152/80; PULSE 71; PULSE 72; RESP 16; TEMP 37.1; O2SAT 100; BMI 22.4
[2022-12-11 16:37] LABS: MANUAL DIFF FLAG NO
[2022-12-11 16:38] LABS: Basophils Absolute Auto 0.1 X10*3/uL (0.0-0.2); Basophils Percent Auto 0.6 % (0-2); Eosinophils Absolute Auto 0.1 X10*3/uL (0.0-0.4); Eosinophils Percent Auto 0.6 % (0-4); Hematocrit 38.9 % (37.0-47.0); Hemoglobin 12.6 g/dl (12.0-16.0); Imm Gran Abs Auto 0.03 X10*3/uL (0.00-0.03); Imm Gran Pct Auto 0.3 % (0.0-0.4); Lymphocytes Absolute Auto 3.8 X10*3/uL (1.2-4.9); Lymphocytes Percent Auto 37.4 % (20-40); Mean Corpuscular HGB Conc 32.4 g/dl (31.0-35.0); Mean Corpuscular Hemoglobin 26.1 pg (27.0-33.0); Mean Corpuscular Volume 80.5 fL (80.0-98.0); Monocytes Absolute Auto 0.6 X10*3/uL (0.1-1.2); Monocytes Percent Auto 5.5 % (2-11); Neutrophils Absolute Auto 5.6 x10*3/uL (2.0-8.3); Neutrophils Percent Auto 55.6 % (45-73); Platelet Count 290 X10*3/uL (160-400); Red Blood Count 4.83 X10*6/uL (4.20-5.50); White Blood Count 10.1 X10*3/uL (4.8-10.8)
[2022-12-11 16:38] LABS: OBS Int Ctl Valid YES; OBS1 POSITIVE (NEGATIVE)
[2022-12-11 16:43] LABS: INTERNATIONAL NORM RATIO 1.1 (0.9-1.1); Prothrombin Time 12.6 SEC (10.0-13.1)
[2022-12-11 16:46] LABS: Partial Thromboplastin Time 31.9 SEC (26.0-36.4)
--- NOTE | 2022-12-11 16:51 | ED_ITS ---
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 Patient reports that she had a rash to her left upper back/shoulder the last 3 days. She describes as burning in nature. She feels that it may be ?an allergic reaction. ? Patient also complains of lower abdominal pain with difficulty urinating This is been going on for the last few days And lastly, the patient also complains of bloody bowel movements that started 1 week ago She states that when she has a bowel movement, there is no rectal pain but she states that she has bright red blood in the toilet There is also red blood on the toilet paper when she wipes. She is on Plavix but no other anticoagulation No fevers or chills Related Data Home Medications Medication Instructions Recorded Confirmed atorvastatin 80 mg tablet 80 mg PO BEDTIME 05/30/20 04/14/22 ergocalciferol (vitamin D2) 1,250 1,250 mcg PO Q30D 05/30/20 04/14/22 mcg (50,000 unit) capsule ezetimibe 10 mg tablet 10 mg PO QAM 05/30/20 04/14/22 metformin 1,000 mg tablet 1,000 mg PO BID 05/30/20 04/14/22 multivitamin with minerals 1 tab PO QAM 05/30/20 04/14/22 nitroglycerin 0.4 mg sublingual 0.4 mg sublingual Q5M PRN Angina 05/30/20 04/14/22 tablet oxybutynin chloride 5 mg 5 mg PO BEDTIME 05/30/20 04/14/22 tablet,extended release 24 hr sennosides 8.6 mg tablet 8.6 mg PO BEDTIME PRN constipation 05/30/20 04/14/22 albuterol sulfate 90 mcg/actuation 90 mcg inhalation Q4H PRN Wheezing 06/12/20 04/14/22 aerosol inhaler fluticasone propionate 50 2 spray intranasal DAILY PRN ashma 06/12/20 04/14/22 mcg/actuation nasal spray,suspension loratadine 10 mg tablet 10 mg PO QAM 06/12/20 04/14/22 tramadol 50 mg tablet 50 mg PO TID PRN Pain 06/12/20 04/14/22 pen needle, diabetic 32 gauge x #50 ea 06/28/20 04/14/22 trazodone 50 mg tablet 1 tab PO BEDTIME PRN Insomnia 08/20/20 04/14/22 clopidogrel 75 mg tablet 75 mg PO DAILY 12/31/20 04/14/22 alcohol swabs (Alcohol Prep Pads) 1 pad topical QID 02/05/22 04/14/22 melatonin 3 mg tablet 3 mg PO BEDTIME 02/05/22 04/14/22 metoprolol tartrate 25 mg tablet 25 mg PO BID 02/05/22 04/14/22 omeprazole 40 mg capsule,delayed 40 mg PO DAILY 02/05/22 04/14/22 release semaglutide 1 mg/dose (4 mg/3 mL) 1 mg subcut ONCE 02/05/22 04/14/22 subcutaneous pen injector ([employer]) budesonide-formoterol HFA 160 inhalation 10/13/22 mcg-4.5 mcg/actuation aerosol inhaler (Symbicort) calcium carbonate 600 mg-vitamin 0 tab PO 10/13/22 D3 20 mcg (800 unit) tablet Previous Rx's Medication Instructions Recorded benzonatate 200 mg capsule 200 mg PO BID PRN cough 30 days 06/07/21 #60 caps dextromethorphan-guaifenesin 5 10 ml PO Q6H PRN cough 14 days 06/07/21 mg-100 mg/5 mL oral liquid (Child #300 mL Robitussin Cough-Chest DM) repaglinide 1 mg tablet 1 mg PO TID diabetes mellitus #90 01/03/22 tabs blood sugar diagnostic (FreeStyle #100 ea 06/27/22 Lite Strips) lancets 33 gauge (TRUEplus Lancets) #100 ea 06/27/22 polyethylene glycol 3350 17 17 g PO DAILY PRN constipation 12/11/22 gram/dose oral powder #238 grams prednisone 20 mg tablet 40 mg PO DAILY #10 tabs 12/11/22 valacyclovir 1 gram tablet 1,000 mg PO TID #21 tabs 05/18/23 Allergies Allergy/AdvReac Type Severity Reaction Status Date / Time codeine [Codeine] Allergy Mild DIZZINESS, Verified 10/13/22 15:53 VOMITING insulin lispro Allergy Unknown NAUSEA & Verified 10/13/22 15:53 [INSULIN LISPRO] VOMITING oxycodone [OXYCODONE] Allergy Unknown NAUSEA & Verified 10/13/22 15:53 VOMITING Review of Systems Constitutional: Constitutional: Reports as per HPI, Denies chills, Denies fatigue, Denies fever(s) and Denies headache(s) ENT: Denies headache(s) Cardiovascular: Cardiovascular: Denies chest pain and Denies dyspnea Respiratory: Respiratory: Denies cough and Denies dyspnea Gastrointestinal: Gastrointestinal: Reports abdominal pain, Reports hematochezia, Denies constipation and Denies vomiting Genitourinary: Genitourinary: Reports dysuria Integumentary/Breasts: Skin/Breast: Reports rash Neurologic: Denies headache(s) and Denies focal weakness Endocrine: Endocrine: Denies fatigue PMFSH Past Medical History Medical History Angina pectoris Asthma Atherosclerotic cardiovascular disease Bursitis of right shoulder Chronic respiratory failure Chronic respiratory failure COPD (chronic obstructive pulmonary disease) DVT, bilateral lower limbs Essential hypertension Fungal dermatitis High cholesterol HLD (hyperlipidemia) HTN (hypertension) Hyperlipidemia, 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 Pressure ulcer of sacral region, stage 2 Pulmonary fibrosis Pulmonary nodules T2DM (type 2 diabetes mellitus) Type 2 diabetes mellitus with unspecified complications Vitamin D deficiency Surgical History History of bunionectomy History of total abdominal hysterectomy and bilateral salpingo-oophorectomy Hx of colonoscopy Family History Family History Mother HTN (hypertension) Brother Lung cancer Daughter Breast cancer Maternal Aunt Breast cancer Daughter Eye cancer Social History Social History Household Members: None Housing: Apartment Housing Other:: [facility] Are you a primary family day care worker to a significant other at home: No Do 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 have 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) Alcohol intake: current Alcohol intake frequency: holidays/special occasions only Patient Tobacco Use Status: Former Tobacco user Smoked in Last 30 Days: No Second Hand Smoke Exposure: No Use of substances other than those prescribed or required for medical reasons: No Advance Directives: Yes Advance Directives on File: Yes Advance Directives Date on File: 08/27/20 service: No Current occupational status: retired Physical Exam ED Vital Signs: Vital Signs - 24 hr 12/11/22 15:40 12/11/22 18:33 Temperature 98.7 F 97.6 F Pulse Rate 71 68 Respiratory Rate 16 12 Blood Pressure 138/63 109/53 L Pulse Oximetry 100 97 Oxygen Delivery Method Nasal Cannula Nasal Cannula Oxygen Flow Rate 2 BMI result Body Mass Index 22.4 Const General: healthy appearing, comfortable, no acute distress, alert and awake Nutritional Appearance: well nourished Orientation/consciousness: patient oriented x3 HENMT Head: Yes normocephalic and Yes atraumatic Throat: Yes posterior oropharynx normal Eyes Eyelids: Yes eyelids normal Conjunctivae: conjunctivae normal Sclerae: sclerae normal Corneas: corneas normal Pupils: Equal, round and reactive pupils present EOM: EOMs intact bilaterally Neck Neck: Yes full ROM Resp Effort & Inspection: normal respiratory effort, able to speak in complete sentences, no audible wheezes and not labored Auscultation: clear to auscultation bilaterally Cardio Rate: regular rate Rhythm: regular rhythm GI Other: Rectal exam performed with female staff, Vicki in the room as clinical documentation clerk Inspection: No distended Palpation (GI): Soft to palpation, not firm, nontender, no guarding and not rigid Auscultation: normoactive bowel sounds Rectal Exam - Female: visual inspection normal, normal sphincter tone, No Abnormal stool present, heme positive stool, No External hemorrhoid(s) present and other (No palpable masses.) Skin Other: Patient has erythematous, macular rash to the left upper back and inside the left arm. It is consistent with a C8 dermatome pattern. No obvious vesicles or blistering General skin exam: elasticity normal Neuro General: patient oriented x3 Cranial nerves: Yes CN's II-XII intact bilaterally, Yes Equal, round and reactive pupils present and Yes Bilaterally intact EOM present Cognition (Neuro): normal cognition Extrem Other: Moving all extremities well without any obvious deformities Course Reevaluation(s) Reevaluation #1: Patient's UA does not appear infected, CT scan does show diverticulosis without any evidence of diverticulitis. Patient is not anemic. Patient's glucose was elevated without any evidence of DKA. The patient can follow up her rectal bleeding with GI as an outpatient. Patient and daughter updated at bedside using front office medical assistant. Will treat the patient's mild constipation MiraLax. Will discharge the patient with prednisone and valacyclovir the possible shingles rash. Time: 19:39 Medications Administered Discontinued Medications Generic Name Dose Route Start Last Admin Trade Name Freq PRN Reason Stop Dose Admin Iohexol 100 ml 12/11/22 17:19 12/11/22 17:19 Iohexol 350 Mg/Ml 100 Ml Infus..Btl IV 12/11/22 17:20 85 ml ONCE ONE Administration Medical Decision Making Medical Decision Making [facility] Narrative: 82-year-old female presents for evaluation of multiple complaints. Her left upper back across the did not appear to be classic zoster, but does appear to follow a dermatome pattern and she describes as burning. Will treat as herpes zoster. Will check labs, UA given the rectal bleeding and abdominal pain. CT scan of the abdomen pelvis will be obtained as well. Dispo as per results Differential Diagnosis Acute rash Dermatitis Herpes zoster Diverticulitis Colitis Rectal bleeding Hemorrhoids UTI Pyelonephritis Lab Data 12/11/22 16:33 12/11/22 16:32 Labs: Lab Results 12/11/22 12/11/22 12/11/22 Range/Units 16:26 16:32 16:33 WBC 10.1 (4.8-10.8) X10*3/uL RBC 4.83 (4.20-5.50) X10*6/uL Hgb 12.6 (12.0-16.0) g/dl Hct 38.9 (37.0-47.0) % MCV 80.5 (80.0-98.0) fL MCH 26.1 L (27.0-33.0) pg MCHC 32.4 (31.0-35.0) g/dl RDW 13.0 (11.0-16.0) % Plt Count 290 (160-400) X10*3/uL MPV 9.0 L (9.4-12.3) fL Immature Gran % (Auto) 0.3 (0.0-0.4) % Neut % (Auto) 55.6 (45-73) % Lymph % (Auto) 37.4 (20-40) % [place] % (Auto) 5.5 (2-11) % Eos % (Auto) 0.6 (0-4) % Baso % (Auto) 0.6 (0-2) % Lymph # (Auto) 3.8 (1.2-4.9) X10*3/uL [place] # (Auto) 0.6 (0.1-1.2) X10*3/uL Eos # (Auto) 0.1 (0.0-0.4) X10*3/uL Baso # (Auto) 0.1 (0.0-0.2) X10*3/uL Abs Immat Gran (auto) 0.03 (0.00-0.03) X10*3/uL Absolute Neuts (auto) 5.6 (2.0-8.3) x10*3/uL Absolute Nucleated RBC 0.000 (0.0-0.012) X10*3/uL Nucleated RBC % (auto) 0.0 (0.0-0.2) /100WBC PT (10.0-13.1) SEC INR (0.9-1.1) APTT (26.0-36.4) SEC Sodium 144 (135-145) mmol/L Potassium 4.3 (3.3-5.1) mmol/L Chloride 106 (96-108) mmol/L Carbon Dioxide 32 H (22-29) mmol/L Anion Gap 10 L (12-20) BUN 14 (9-16) mg/dL Creatinine 0.73 (0.5-1.4) mg/dL Estim Creat Clear Calc 46.2 Estimated GFR > 60 Random Glucose 148 H (60-115) mg/dL Calcium 9.4 (8.4-10.2) mg/dL Total Bilirubin 1.6 H (0.0-1.0) mg/dL AST 17 (5-31) U/L ALT 11 (0-31) U/L Alkaline Phosphatase 80 (39-117) U/L Total Protein 6.8 (6.5-8.0) g/dL Albumin 4.0 (3.5-5.0) g/dL Lipase 19 (8-78) U/L Urine Color Urine Appearance Urine pH (5.0-9.0) Ur Specific [place] (1.005-1.025) Urine Protein (Neg-Trace) mg/dL Urine Glucose (UA) (Negative) mg/dL Urine Ketones (Negative) mg/dL Urine Blood (Negative) Urine Nitrite (Negative) Ur Leukocyte Esterase (Negative) Urine RBC (0-2) /HPF Urine WBC (0-5) /HPF Ur Squamous Epith Cells (0-2) /HPF Urine Bacteria (None Seen) Hyaline Casts (0-2) /LPF Stool Occult Blood POSITIVE (NEGATIVE) Blood Type 12/11/22 12/11/22 12/11/22 Range/Units 16:33 17:34 18:51 WBC (4.8-10.8) X10*3/uL RBC (4.20-5.50) X10*6/uL Hgb (12.0-16.0) g/dl Hct (37.0-47.0) % MCV (80.0-98.0) fL MCH (27.0-33.0) pg MCHC (31.0-35.0) g/dl RDW (11.0-16.0) % Plt Count (160-400) X10*3/uL MPV (9.4-12.3) fL Immature Gran % (Auto) (0.0-0.4) % Neut % (Auto) (45-73) % Lymph % (Auto) (20-40) % [place] % (Auto) (2-11) % Eos % (Auto) (0-4) % Baso % (Auto) (0-2) % Lymph # (Auto) (1.2-4.9) X10*3/uL [place] # (Auto) (0.1-1.2) X10*3/uL Eos # (Auto) (0.0-0.4) X10*3/uL Baso # (Auto) (0.0-0.2) X10*3/uL Abs Immat Gran (auto) (0.00-0.03) X10*3/uL Absolute Neuts (auto) (2.0-8.3) x10*3/uL Absolute Nucleated RBC (0.0-0.012) X10*3/uL Nucleated RBC % (auto) (0.0-0.2) /100WBC PT 12.6 (10.0-13.1) SEC INR 1.1 (0.9-1.1) APTT 31.9 (26.0-36.4) SEC Sodium (135-145) mmol/L Potassium (3.3-5.1) mmol/L Chloride (96-108) mmol/L Carbon Dioxide (22-29) mmol/L Anion Gap (12-20) BUN (9-16) mg/dL Creatinine (0.5-1.4) mg/dL Estim Creat Clear Calc Estimated GFR Random Glucose (60-115) mg/dL Calcium (8.4-10.2) mg/dL Total Bilirubin (0.0-1.0) mg/dL AST (5-31) U/L ALT (0-31) U/L Alkaline Phosphatase (39-117) U/L Total Protein (6.5-8.0) g/dL Albumin (3.5-5.0) g/dL Lipase (8-78) U/L Urine Color Yellow Urine Appearance Clear Urine pH 6.5 (5.0-9.0) Ur Specific [place] >= 1.030 H (1.005-1.025) Urine Protein Negative (Neg-Trace) mg/dL Urine Glucose (UA) 100 H (Negative) mg/dL Urine Ketones Negative (Negative) mg/dL Urine Blood Negative (Negative) Urine Nitrite Negative (Negative) Ur Leukocyte Esterase Negative (Negative) Urine RBC 0-2 (0-2) /HPF Urine WBC 0-5 (0-5) /HPF Ur Squamous Epith Cells 0-2 (0-2) /HPF Urine Bacteria None Seen (None Seen) Hyaline Casts 0-2 (0-2) /LPF Stool Occult Blood (NEGATIVE) Blood Type O Positive Discharge Plan Discharge Clinical Impression: Bright red rectal bleeding, Constipation, Dermatitis Patient Disposition: Home, Self-Care Instructions: Rectal Bleeding (ED) Additional Instructions: For your rectal bleeding follow-up with GI, Dr. Kirby. Your blood test were all reassuring today For your rash you should take prednisone and valacyclovir. The rash distribution and burning pain is concerning for shingles You may take MiraLax for the constipation Follow-up with your primary doctor Prescriptions: New prednisone 20 mg tablet 40 mg PO DAILY Qty: 10 0RF polyethylene glycol 3350 17 gram/dose powder 17 g PO DAILY PRN (Reason: constipation) Qty: 238 0RF valacyclovir 1 gram tablet 1,000 mg PO TID Qty: 21 0RF No Action repaglinide 1 mg tablet 1 mg PO TID Qty: 90 6RF (DME) FreeStyle Lite Strips Strip See Rx Instructions Not Applicable TID Qty: 100 0RF Rx Instructions: As directed..Test blood sugar 3x per day. (DME) lancets [TRUEplus Lancets] 33 gauge misc See Rx Instructions .ROUTE .MEDSUPPLY Qty: 100 0RF Rx Instructions: As directed..Test blood sugar 3x per day. trazodone 50 mg tablet 1 tab PO BEDTIME PRN (Reason: Insomnia) tramadol 50 mg tablet 50 mg PO TID PRN (Reason: Pain) loratadine 10 mg tablet 10 mg PO QAM fluticasone propionate 50 mcg/actuation spray,suspension 2 spray intranasal DAILY PRN (Reason: ashma) albuterol sulfate 90 mcg/actuation HFA aerosol inhaler 90 mcg inhalation Q4H PRN (Reason: Wheezing) clopidogrel 75 mg tablet 75 mg PO DAILY (DME) pen needle, diabetic 32 gauge x needle See Rx Instructions .ROUTE DAILY Qty: 50 Rx Instructions: As directed ezetimibe 10 mg tablet 10 mg PO QAM atorvastatin 80 mg tablet 80 mg PO BEDTIME ergocalciferol (vitamin D2) 1,250 mcg (50,000 unit) capsule 1,250 mcg PO Q30D nitroglycerin 0.4 mg tablet, sublingual 0.4 mg sublingual Q5M PRN (Reason: Angina) sennosides 8.6 mg tablet 8.6 mg PO BEDTIME PRN (Reason: constipation) multivitamin with minerals Tablet 1 tab PO QAM oxybutynin chloride 5 mg tablet extended release 24hr 5 mg PO BEDTIME metformin 1,000 mg tablet 1,000 mg PO BID benzonatate 200 mg capsule 200 mg PO BID PRN (Reason: cough) 30 Days Qty: 60 5RF Chld Robitussin Cough-Chest DM 5-100 mg/5 mL liquid 10 ml PO Q6H PRN (Reason: cough) 14 Days Qty: 300 2RF budesonide-formoterol [Symbicort] 160-4.5 mcg/actuation HFA aerosol inhaler inhalation calcium carbonate-vitamin D3 600 mg-20 mcg (800 unit) tablet 0 tab PO melatonin 3 mg tablet 3 mg PO BEDTIME omeprazole 40 mg capsule,delayed release(DR/EC) 40 mg PO DAILY alcohol swabs [Alcohol Prep Pads] Pads, Medicated 1 pad topical QID metoprolol tartrate 25 mg tablet 25 mg PO BID Ozempic 1 mg/dose (4 mg/3 mL) pen injector 1 mg subcut ONCE Referrals: Dawson Kirby MD [Physician] - (rectal bleeding)
[2022-12-11 16:52] LABS: Alanine Aminotransferase 11 U/L (0-31); Alkaline Phosphatase 80 U/L (39-117); Anion Gap 10 (12-20); Aspartate Amino Transferase 17 U/L (5-31); Bilirubin Total 1.6 mg/dL (0.0-1.0); Blood Urea Nitrogen 14 mg/dL (9-16); Calcium 9.4 mg/dL (8.4-10.2); Carbon Dioxide 32 mmol/L (22-29); Chloride 106 mmol/L (96-108); Creatinine Clr Calc Pharmacy 46.2; Estimated Glomerular Filt Rate > 60; Glucose Random 148 mg/dL (60-115); Lipase 19 U/L (8-78); Potassium 4.3 mmol/L (3.3-5.1); Sodium 144 mmol/L (135-145); Total Protein 6.8 g/dL (6.5-8.0)
[2022-12-11] MEDS: iohexoL 350 MG/ML 100 ML INFUS..BTL IV (17:19)
[2022-12-11 18:33] VITALS: BP 109/53; PULSE 68; RESP 12; TEMP 36.4; O2SAT 97
[2022-12-11 19:02] LABS: Appearance Urine Clear; Color Urine Yellow; Glucose Urine UA 100 mg/dL (Negative); Leukocyte Esterase Urine Negative (Negative); Nitrite Urine Negative (Negative); PH 6.5 (5.0-9.0); Specific Gravity - Urine >= 1.030 (1.005-1.025); Urine Blood Negative (Negative); Urine Ketones Negative (Negative); Urine Protein Negative (Neg-Trace)
[2022-12-11 19:04] LABS: Bacteria Urine None Seen (None Seen); Hyaline Casts Urine 0-2 /LPF (0-2); RBC Urine 0-2 /HPF (0-2); Squamous Epithelial Cell Urine 0-2 /HPF (0-2); WBC Urine 0-5 /HPF (0-5)
== END 2022-12-11 20:14 | disposition home or self-care (01) ==
PROVIDERS: Physician Assistant; Emergency Provider Internal Medicine; PCP Internal Medicine
DX: K62.5 Hemorrhage of anus and rectum (principal); K59.00 Constipation, unspecified; L30.9 Dermatitis, unspecified; E11.9 Type 2 diabetes mellitus without complications; I10 Essential (primary) hypertension; E78.5 Hyperlipidemia, unspecified; Z79.02 Long term (current) use of antithrombotics/antiplatelets; Z79.84 Long term (current) use of oral hypoglycemic drugs; Z79.899 Other long term (current) drug therapy; Z87.891 Personal history of nicotine dependence
CPT/HCPCS: 36415; 74177; 80053; 81001; 82272; 83690; 85025; 85610; 85730; 86850; 86870; 86885; 86900; 86901; 86905; 99284; Q9967

== ENCOUNTER 2022-12-27 12:40 | Emergency (ER) | payer OTHER, SELFPAY ==
--- NOTE | ~2022-12-27 | CT_ITS ---
EXAMINATION: CT ABDOMEN AND PELVIS WITHOUT CONTRAST CLINICAL INFORMATION: pain. COMPARISON: 12/11/2022 CT scan. TECHNIQUE: Multidetector volumetric imaging was performed from the superior aspect of the liver through the pubic symphysis without contrast per request. Sagittal and coronal reformatted images were obtained on the technologist workstation. This CT examination was performed using dose optimization techniques as appropriate, variously including the following: *Automated exposure control *Adjustment of mA and/or kV according to patient size (this includes techniques or standardized protocols for targeted exams where dose is matched to indication/reason for exam; i.e. extremities or head) *Use of iterative reconstruction technique DLP: 330 mGy-cm. FINDINGS: LUNG BASES: Chronic emphysematous changes with several lung cysts again noted as seen on the prior CT scan. No new focal airspace disease with stable nodular opacities at the right lung base LIVER, GALLBLADDER, BILIARY TREE: The non-contrast liver is normal in size, shape, and attenuation. No focal hepatic lesion or biliary ductal dilatation is present. The gallbladder is unremarkable with no evidence of radiopaque gallstones, gallbladder wall thickening, or obvious pericholecystic inflammatory changes. PANCREAS: Atrophic SPLEEN: Unremarkable. ADRENAL GLANDS: Unremarkable. KIDNEYS AND URETERS: The kidneys are normal in size, shape, and attenuation. No hydronephrosis, hydroureter, or calculi seen. No perinephric stranding. BLADDER: Unremarkable. GASTROINTESTINAL TRACT: Extensive colonic diverticulosis more so in the sigmoid colon. I do not appreciate any acute pericolonic inflammatory change in the setting of chronic diverticular disease. Normal-appearing appendix in the right midabdomen. Visualized small bowel unremarkable. Stomach unremarkable ABDOMINAL WALL: No significant hernia is appreciated. LYMPHOVASCULAR STRUCTURES: No lymphadenopathy. The aorta is unremarkable.. PELVIC VISCERA: Presumably surgically absent OSSEUS STRUCTURES: Unremarkable. CT/CT abdomen pelvis wo IV con IMPRESSION: Chronic appearing changes similar to the 12/11/2022 study. I do not appreciate any acute intra-abdominal process.
[2022-12-27 12:43] VITALS: BP 126/70; PULSE 112; O2SAT 97
[2022-12-27 13:11] VITALS: BP 115/68; PULSE 105; RESP 16; TEMP 36.4; O2SAT 95; BMI 21.9
--- NOTE | 2022-12-27 13:12 | ED_ITS ---
HPI - General Adult General Chief complaint: Abdominal Pain Stated complaint: LOW ABD PAIN X3 MONTHS PER EMS Time Seen by Provider: 12/27/22 16:49 Source: patient, RN notes reviewed and old records reviewed Mode of arrival: ambulatory Limitations: no limitations History of Present Illness HPI narrative: 82-year-old female with past medical history significant for diabetes, hypertension, COPD, hyperlipidemia presents for evaluation of lower abdominal pain Patient was seen here few weeks ago for similar. She also complains of bright red rectal bleeding with bowel movements. Denies any rectal pain but complains of lower abdominal pain mostly left-sided that is a 10 of 10. She states her pain has been present for the last 3 months. She was discharged with MiraLax for mild constipation which she reports that she had taking. Patient did not follow-up with GI that she was referred to She called her primary doctor and was given appointment for January 26 for 1 month from today Denies any fevers, chills Reports a history of total hysterectomy Related Data Home Medications Medication Instructions Recorded Confirmed atorvastatin 80 mg tablet 80 mg PO BEDTIME 05/30/20 04/14/22 ergocalciferol (vitamin D2) 1,250 1,250 mcg PO Q30D 05/30/20 04/14/22 mcg (50,000 unit) capsule ezetimibe 10 mg tablet 10 mg PO QAM 05/30/20 04/14/22 metformin 1,000 mg tablet 1,000 mg PO BID 05/30/20 04/14/22 multivitamin with minerals 1 tab PO QAM 05/30/20 04/14/22 nitroglycerin 0.4 mg sublingual 0.4 mg sublingual Q5M PRN Angina 05/30/20 04/14/22 tablet oxybutynin chloride 5 mg 5 mg PO BEDTIME 05/30/20 04/14/22 tablet,extended release 24 hr sennosides 8.6 mg tablet 8.6 mg PO BEDTIME PRN constipation 05/30/20 04/14/22 albuterol sulfate 90 mcg/actuation 90 mcg inhalation Q4H PRN Wheezing 06/12/20 04/14/22 aerosol inhaler fluticasone propionate 50 2 spray intranasal DAILY PRN ashma 06/12/20 04/14/22 mcg/actuation nasal spray,suspension loratadine 10 mg tablet 10 mg PO QAM 06/12/20 04/14/22 tramadol 50 mg tablet 50 mg PO TID PRN Pain 06/12/20 04/14/22 pen needle, diabetic 32 gauge x #50 ea 06/28/20 04/14/22 trazodone 50 mg tablet 1 tab PO BEDTIME PRN Insomnia 08/20/20 04/14/22 clopidogrel 75 mg tablet 75 mg PO DAILY 12/31/20 04/14/22 alcohol swabs (Alcohol Prep Pads) 1 pad topical QID 02/05/22 04/14/22 melatonin 3 mg tablet 3 mg PO BEDTIME 02/05/22 04/14/22 metoprolol tartrate 25 mg tablet 25 mg PO BID 02/05/22 04/14/22 omeprazole 40 mg capsule,delayed 40 mg PO DAILY 02/05/22 04/14/22 release semaglutide 1 mg/dose (4 mg/3 mL) 1 mg subcut ONCE 02/05/22 04/14/22 subcutaneous pen injector ([employer]) budesonide-formoterol HFA 160 inhalation 10/13/22 mcg-4.5 mcg/actuation aerosol inhaler (Symbicort) calcium carbonate 600 mg-vitamin 0 tab PO 10/13/22 D3 20 mcg (800 unit) tablet Previous Rx's Medication Instructions Recorded benzonatate 200 mg capsule 200 mg PO BID PRN cough 30 days 06/07/21 #60 caps dextromethorphan-guaifenesin 5 10 ml PO Q6H PRN cough 14 days 06/07/21 mg-100 mg/5 mL oral liquid (Child #300 mL Robitussin Cough-Chest DM) repaglinide 1 mg tablet 1 mg PO TID diabetes mellitus #90 01/03/22 tabs blood sugar diagnostic (FreeStyle #100 ea 06/27/22 Lite Strips) lancets 33 gauge (TRUEplus Lancets) #100 ea 06/27/22 polyethylene glycol 3350 17 17 g PO DAILY PRN constipation 12/11/22 gram/dose oral powder #238 grams prednisone 20 mg tablet 40 mg PO DAILY #10 tabs 12/11/22 valacyclovir 1 gram tablet 1,000 mg PO TID #21 tabs 12/11/22 Allergies Allergy/AdvReac Type Severity Reaction Status Date / Time codeine [Codeine] Allergy Mild DIZZINESS, Verified 12/27/22 13:11 VOMITING insulin lispro Allergy Unknown NAUSEA & Verified 12/27/22 13:11 [INSULIN LISPRO] VOMITING oxycodone [OXYCODONE] Allergy Unknown NAUSEA & Verified 12/27/22 13:11 VOMITING Review of Systems Constitutional: Constitutional: Reports as per HPI, Denies chills, Denies fatigue, Denies fever(s) and Denies headache(s) ENT: Denies headache(s) Cardiovascular: Cardiovascular: Denies chest pain and Denies dyspnea Respiratory: Respiratory: Denies cough and Denies dyspnea Gastrointestinal: Gastrointestinal: Reports abdominal pain, Reports hematoc hezia, Reports constipation and Denies vomiting Genitourinary: Genitourinary: Denies dysuria Neurologic: Denies headache(s) and Denies focal weakness Endocrine: Endocrine: Denies fatigue PMFSH Past Medical History Medical History Angina pectoris Asthma Atherosclerotic cardiovascular disease Bursitis of right shoulder Chronic respiratory failure Chronic respiratory failure COPD (chronic obstructive pulmonary disease) DVT, bilateral lower limbs Essential hypertension Fungal dermatitis High cholesterol HLD (hyperlipidemia) HTN (hypertension) Hyperlipidemia, unspecified 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 Pressure ulcer of sacral region, stage 2 Pulmonary fibrosis Pulmonary nodules T2DM (type 2 diabetes mellitus) Type 2 diabetes mellitus with unspecified complications Vitamin D deficiency Surgical History History of bunionectomy History of total abdominal hysterectomy and bilateral salpingo-oophorectomy Hx of colonoscopy Family History Family History Mother HTN (hypertension) Brother Lung cancer Daughter Breast cancer Maternal Aunt Breast cancer Daughter Eye cancer Social History Social History Household Members: None Housing: Apartment Housing Other:: [facility] Are you a primary pet care attendant to a significant other at home: No Do 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 have 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) Alcohol intake: current Alcohol intake frequency: holidays/special occasions only Patient Tobacco Use Status: Former Tobacco user Second Hand Smoke Exposure: No Advance Directives: Yes Advance Directives on File: Yes Advance Directives Date on File: 08/27/20 service: No Current occupational status: retired Physical Exam ED Vital Signs: Vital Signs - 24 hr 12/27/22 13:11 12/27/22 14:00 12/27/22 16:00 Temperature 97.6 F 98.3 F 98.3 F Pulse Rate 105 H 61 61 Respiratory Rate 16 16 16 Blood Pressure 115/68 136/69 136/69 Pulse Oximetry 95 99 99 Oxygen Delivery Method Room Air Room Air Room Air BMI result Body Mass Index 21.9 Const General: healthy appearing, comfortable, no acute distress, alert and awake Nutritional Appearance: well nourished Orientation/consciousness: patient oriented x3 HENMT Head: Yes normocephalic and Yes atraumatic Eyes Eyelids: Yes eyelids normal Conjunctivae: conjunctivae normal Sclerae: sclerae normal Corneas: corneas normal Pupils: Equal, round and reactive pupils present EOM: EOMs intact bilaterally Neck Neck: Yes full ROM Resp Effort & Inspection: normal respiratory effort, able to speak in complete sentences and not labored GI Inspection: No distended Palpation (GI): Soft to palpation, not firm, Tenderness to palpation present (GI) in the LLQ, Guarding due to palpation present (GI) in the LLQ (No guarding) and not rigid Auscultation: normoactive bowel sounds Skin General skin exam: no rashes or lesions noted and elasticity normal Neuro General: patient oriented x3 Cranial nerves: Yes Equal, round and reactive pupils present and Yes Bilaterally intact EOM present Cognition (Neuro): normal cognition Extrem Other: Moving all extremities well without any obvious deformities Course Course Course Narrative: RME performed by Janette Bishop PA-C. Patient is an 82 year old assigned female at presenting to the emergency department with abdominal pain, rectal bleeding, and constipation. Labs ordered. Patient placed back in the waiting room pending room availability and results. Reevaluation(s) Reevaluation #1: I discussed with the patient all of her results including the unremarkable CT scan the other pelvis. This was done with a dispatcher motor vehicle. The patient states that she has not actually had any rectal bleeding since December 21, 6 days ago. She reports that she has been trying to follow up with GI that she was referred to on her last visit they have not given her an appointment yet. Will give the patient another referral to GI. She will call Thursday and Thursday to try to get an appointment Time: 18:10 Medications Administered Discontinued Medications Generic Name Dose Route Start Last Admin Trade Name German PRN Reason Stop Dose Admin Morphine Sulfate 2 mg 12/27/22 17:03 12/27/22 17:40 Morphine Sulfate 2 Mg/Ml Cartridge IM 12/27/22 17:04 2 mg ONCE ONE Administration Protocol Ondansetron HCl 4 mg 12/27/22 17:06 12/27/22 17:41 Ondansetron Odt 4 Mg Tab.Rapdis TRANSLINGU 12/27/22 17:07 4 mg ONCE ONE Administration Medical Decision Making Medical Decision Making [facility] Narrative: Patient presents for evaluation of 3 months of lower abdominal pain with bright red rectal bleeding after bowel movements. She had a rectal exam 3 weeks ago performed by myself and declines rectal examination today. At that time she was heme-positive but there were no masses. The patient was treated with MiraLax for mild constipation but did not follow-up with GI as recommended. Given that she reports her pain is worsening and she is guarding to palpation left lower quadrant will repeat CT scan. I discussed with the patient and her daughter, the importance of following up with GI issue likely need a colonoscopy to rule out colonic mass that may not be seen on CT imaging Differential Diagnosis Abdominal pain Constipation Internal hemorrhoids Colon CA Lab Data [facility] Lab Attestation statement: I reviewed the patient's lab results. 12/27/22 13:43 12/27/22 13:43 Labs: Lab Results 12/27/22 12/27/22 12/27/22 Range/Units 13:43 13:43 13:43 WBC 10.7 (4.8-10.8) X10*3/uL RBC 4.44 (4.20-5.50) X10*6/uL Hgb 11.5 L (12.0-16.0) g/dl Hct 35.7 L (37.0-47.0) % MCV 80.4 (80.0-98.0) fL MCH 25.9 L (27.0-33.0) pg MCHC 32.2 (31.0-35.0) g/dl RDW 13.3 (11.0-16.0) % Plt Count 345 (160-400) X10*3/uL MPV 9.1 L (9.4-12.3) fL Immature Gran % (Auto) 0.4 (0.0-0.4) % Neut % (Auto) 68.0 (45-73) % Lymph % (Auto) 25.0 (20-40) % [place] % (Auto) 5.3 (2-11) % Eos % (Auto) 0.8 (0-4) % Baso % (Auto) 0.5 (0-2) % Lymph # (Auto) 2.7 (1.2-4.9) X10*3/uL [place] # (Auto) 0.6 (0.1-1.2) X10*3/uL Eos # (Auto) 0.1 (0.0-0.4) X10*3/uL Baso # (Auto) 0.1 (0.0-0.2) X10*3/uL Abs Immat Gran (auto) 0.04 H (0.00-0.03) X10*3/uL Absolute Neuts (auto) 7.3 (2.0-8.3) x10*3/uL Absolute Nucleated RBC 0.000 (0.0-0.012) X10*3/uL Nucleated RBC % (auto) 0.0 (0.0-0.2) /100WBC PT 11.6 (10.0-13.1) SEC INR 1.0 (0.9-1.1) APTT 31.8 (26.0-36.4) SEC Sodium 140 (135-145) mmol/L Potassium 4.0 (3.3-5.1) mmol/L Chloride 104 (96-108) mmol/L Carbon Dioxide 26 (22-29) mmol/L Anion Gap 14 (12-20) BUN 11 (9-16) mg/dL Creatinine 0.81 (0.5-1.4) mg/dL Estim Creat Clear Calc 39.7 Estimated GFR > 60 Random Glucose 280 H (60-115) mg/dL Calcium 9.4 (8.4-10.2) mg/dL Magnesium 1.6 (1.6-2.6) mg/dL Total Bilirubin 0.9 (0.0-1.0) mg/dL AST 12 (5-31) U/L ALT 7 (0-31) U/L Alkaline Phosphatase 95 (39-117) U/L Total Protein 6.5 (6.5-8.0) g/dL Albumin 3.7 (3.5-5.0) g/dL Lipase 19 (8-78) U/L Urine Color Urine Appearance Urine pH (5.0-9.0) Ur Specific [place] (1.005-1.025) Urine Protein (Neg-Trace) mg/dL Urine Glucose (UA) (Negative) mg/dL Urine Ketones (Negative) mg/dL Urine Blood (Negative) Urine Nitrite (Negative) Ur Leukocyte Esterase (Negative) 12/27/22 Range/Units 16:47 WBC (4.8-10.8) X10*3/uL RBC (4.20-5.50) X10*6/uL Hgb (12.0-16.0) g/dl Hct (37.0-47.0) % MCV (80.0-98.0) fL MCH (27.0-33.0) pg MCHC (31.0-35.0) g/dl RDW (11.0-16.0) % Plt Count (160-400) X10*3/uL MPV (9.4-12.3) fL Immature Gran % (Auto) (0.0-0.4) % Neut % (Auto) (45-73) % Lymph % (Auto) (20-40) % [place] % (Auto) (2-11) % Eos % (Auto) (0-4) % Baso % (Auto) (0-2) % Lymph # (Auto) (1.2-4.9) X10*3/uL [place] # (Auto) (0.1-1.2) X10*3/uL Eos # (Auto) (0.0-0.4) X10*3/uL Baso # (Auto) (0.0-0.2) X10*3/uL Abs Immat Gran (auto) (0.00-0.03) X10*3/uL Absolute Neuts (auto) (2.0-8.3) x10*3/uL Absolute Nucleated RBC (0.0-0.012) X10*3/uL Nucleated RBC % (auto) (0.0-0.2) /100WBC PT (10.0-13.1) SEC INR (0.9-1.1) APTT (26.0-36.4) SEC Sodium (135-145) mmol/L Potassium (3.3-5.1) mmol/L Chloride (96-108) mmol/L Carbon Dioxide (22-29) mmol/L Anion Gap (12-20) BUN (9-16) mg/dL Creatinine (0.5-1.4) mg/dL Estim Creat Clear Calc Estimated GFR Random Glucose (60-115) mg/dL Calcium (8.4-10.2) mg/dL Magnesium (1.6-2.6) mg/dL Total Bilirubin (0.0-1.0) mg/dL AST (5-31) U/L ALT (0-31) U/L Alkaline Phosphatase (39-117) U/L Total Protein (6.5-8.0) g/dL Albumin (3.5-5.0) g/dL Lipase (8-78) U/L Urine Color Yellow Urine Appearance Clear Urine pH 6.5 (5.0-9.0) Ur Specific [place] <= 1.005 (1.005-1.025) Urine Protein Negative (Neg-Trace) mg/dL Urine Glucose (UA) Negative (Negative) mg/dL Urine Ketones Negative (Negative) mg/dL Urine Blood Negative (Negative) Urine Nitrite Negative (Negative) Ur Leukocyte Esterase Negative (Negative) Discharge Plan Discharge Clinical Impression: Abdominal pain, Bright red rectal bleeding Patient Disposition: Home, Self-Care Instructions: Rectal Bleeding (ED) Additional Instructions: Continue using all her home medications. Follow-up with GI at the number provided Return for new or worsening symptoms Dr Heath.- [phone], GI [address] [place] [address], [address] floor [place], [place] Prescriptions: No Action repaglinide 1 mg tablet 1 mg PO TID Qty: 90 6RF (DME) FreeStyle Lite Strips Strip See Rx Instructions Not Applicable TID Qty: 100 0RF Rx Instructions: As directed..Test blood sugar 3x per day. (DME) lancets [TRUEplus Lancets] 33 gauge misc See Rx Instructions .ROUTE .MEDSUPPLY Qty: 100 0RF Rx Instructions: As directed..Test blood sugar 3x per day. trazodone 50 mg tablet 1 tab PO BEDTIME PRN (Reason: Insomnia) prednisone 20 mg tablet 40 mg PO DAILY Qty: 10 0RF polyethylene glycol 3350 17 gram/dose powder 17 g PO DAILY PRN (Reason: constipation) Qty: 238 0RF valacyclovir 1 gram tablet 1,000 mg PO TID Qty: 21 0RF tramadol 50 mg tablet 50 mg PO TID PRN (Reason: Pain) loratadine 10 mg tablet 10 mg PO QAM fluticasone propionate 50 mcg/actuation spray,suspension 2 spray intranasal DAILY PRN (Reason: ashma) albuterol sulfate 90 mcg/actuation HFA aerosol inhaler 90 mcg inhalation Q4H PRN (Reason: Wheezing) clopidogrel 75 mg tablet 75 mg PO DAILY (DME) pen needle, diabetic 32 gauge x needle See Rx Instructions .ROUTE DAILY Qty: 50 Rx Instructions: As directed ezetimibe 10 mg tablet 10 mg PO QAM atorvastatin 80 mg tablet 80 mg PO BEDTIME ergocalciferol (vitamin D2) 1,250 mcg (50,000 unit) capsule 1,250 mcg PO Q30D nitroglycerin 0.4 mg tablet, sublingual 0.4 mg sublingual Q5M PRN (Reason: Angina) sennosides 8.6 mg tablet 8.6 mg PO BEDTIME PRN (Reason: constipation) multivitamin with minerals Tablet 1 tab PO QAM oxybutynin chloride 5 mg tablet extended release 24hr 5 mg PO BEDTIME metformin 1,000 mg tablet 1,000 mg PO BID benzonatate 200 mg capsule 200 mg PO BID PRN (Reason: cough) 30 Days Qty: 60 5RF Chld Robitussin Cough-Chest DM 5-100 mg/5 mL liquid 10 ml PO Q6H PRN (Reason: cough) 14 Days Qty: 300 2RF budesonide-formoterol [Symbicort] 160-4.5 mcg/actuation HFA aerosol inhaler inhalation calcium carbonate-vitamin D3 600 mg-20 mcg (800 unit) tablet 0 tab PO melatonin 3 mg tablet 3 mg PO BEDTIME omeprazole 40 mg capsule,delayed release(DR/EC) 40 mg PO DAILY alcohol swabs [Alcohol Prep Pads] Pads, Medicated 1 pad topical QID metoprolol tartrate 25 mg tablet 25 mg PO BID Ozempic 1 mg/dose (4 mg/3 mL) pen injector 1 mg subcut ONCE Referrals: Lelo Heath MD [Physician] - (rectal bleeding)
[2022-12-27 13:46] LABS: MANUAL DIFF FLAG NO
[2022-12-27 13:52] LABS: Basophils Absolute Auto 0.1 X10*3/uL (0.0-0.2); Basophils Percent Auto 0.5 % (0-2); Eosinophils Absolute Auto 0.1 X10*3/uL (0.0-0.4); Eosinophils Percent Auto 0.8 % (0-4); Hematocrit 35.7 % (37.0-47.0); Hemoglobin 11.5 g/dl (12.0-16.0); Imm Gran Abs Auto 0.04 X10*3/uL (0.00-0.03); Imm Gran Pct Auto 0.4 % (0.0-0.4); Lymphocytes Absolute Auto 2.7 X10*3/uL (1.2-4.9); Mean Corpuscular HGB Conc 32.2 g/dl (31.0-35.0); Mean Corpuscular Hemoglobin 25.9 pg (27.0-33.0); Mean Corpuscular Volume 80.4 fL (80.0-98.0); Mean Platelet Volume 9.1 fL (9.4-12.3); Monocytes Absolute Auto 0.6 X10*3/uL (0.1-1.2); Monocytes Percent Auto 5.3 % (2-11); Neutrophils Absolute Auto 7.3 x10*3/uL (2.0-8.3); Platelet Count 345 X10*3/uL (160-400); Red Blood Count 4.44 X10*6/uL (4.20-5.50); Red Cell Distribution Width 13.3 % (11.0-16.0); White Blood Count 10.7 X10*3/uL (4.8-10.8)
[2022-12-27 14:00] VITALS: BP 136/69; PULSE 61; RESP 16; TEMP 36.8; O2SAT 99
[2022-12-27 14:02] LABS: Prothrombin Time 11.6 SEC (10.0-13.1)
[2022-12-27 14:04] LABS: Partial Thromboplastin Time 31.8 SEC (26.0-36.4)
[2022-12-27 14:09] LABS: Alanine Aminotransferase 7 U/L (0-31); Albumin Level 3.7 g/dL (3.5-5.0); Alkaline Phosphatase 95 U/L (39-117); Anion Gap 14 (12-20); Aspartate Amino Transferase 12 U/L (5-31); Bilirubin Total 0.9 mg/dL (0.0-1.0); Blood Urea Nitrogen 11 mg/dL (9-16); Calcium 9.4 mg/dL (8.4-10.2); Carbon Dioxide 26 mmol/L (22-29); Chloride 104 mmol/L (96-108); Creatinine Clr Calc Pharmacy 39.7; Estimated Glomerular Filt Rate > 60; Glucose Random 280 mg/dL (60-115); Lipase 19 U/L (8-78); Magnesium 1.6 mg/dL (1.6-2.6); Sodium 140 mmol/L (135-145); Total Protein 6.5 g/dL (6.5-8.0)
[2022-12-27 16:00] VITALS: BP 136/69; PULSE 61; RESP 16; TEMP 36.8; O2SAT 99
--- NOTE | 2022-12-27 16:12 | MHC.EDTECH ---
Brought patient warm blanket.
[2022-12-27 17:40] LABS: Color Urine Yellow; Glucose Urine UA Negative (Negative); Leukocyte Esterase Urine Negative (Negative); Nitrite Urine Negative (Negative); PH 6.5 (5.0-9.0); Specific Gravity - Urine <= 1.005 (1.005-1.025); Urine Blood Negative (Negative); Urine Ketones Negative (Negative); Urine Protein Negative (Neg-Trace)
[2022-12-27] MEDS: Morphine Sulfate 2 MG/ML CARTRIDGE IM (17:40)
[2022-12-27 17:41] LABS: Appearance Urine Clear
[2022-12-27] MEDS: Ondansetron ODT 4 MG TAB.RAPDIS TRANSLINGU (17:41)
[2022-12-27 18:00] VITALS: BP 124/65; PULSE 71; RESP 16; TEMP 36.9; O2SAT 96
== END 2022-12-27 18:29 | disposition home or self-care (01) ==
PROVIDERS: Physician Assistant Medical; Emergency Provider Emergency Medicine; PCP Internal Medicine
DX: K62.5 Hemorrhage of anus and rectum (principal); R10.30 Lower abdominal pain, unspecified; Z79.899 Other long term (current) drug therapy
CPT/HCPCS: 36415; 74176; 80053; 81003; 83690; 83735; 85025; 85610; 85730; 96372; 99283; 99284; J2270

== ENCOUNTER → 2023-01-06 09:31 | Outpatient (BNVA) | payer OTHER, SELFPAY | PROVIDERS: PCP Internal Medicine; Visit Provider Nurse Practitioner Family | DX: K57.90 Diverticulosis of intestine, part unspecified, without perforation or abscess without bleeding (principal); K59.04 Chronic idiopathic constipation; R10.32 Left lower quadrant pain; K62.5 Hemorrhage of anus and rectum | CPT/HCPCS: 99202 ==

== ENCOUNTER 2023-01-20 13:04 | Outpatient (REF) | payer OTHER, SELFPAY ==
--- NOTE | ~2023-01-20 | MM_ITS ---
EXAMINATION: MM SCREENING DIGITAL BREAST TOMOSYNTHESIS, BILATERAL CLINICAL INFORMATION: Screening. Asymptomatic. The lifetime risk of breast cancer based on the Tyrer-Cuzick Model is under 3%. COMPARISON: Mammography: 01/02/2022, 01/06/2020, 07/22/2018 TECHNIQUE: Digital breast tomosynthesis is performed in both the craniocaudal and mediolateral oblique views along with computer-aided detection (CAD). Synthesized 2D images are generated from the tomosynthesis. Additional right MLO view is provided. Technologist notes technically challenging exam. Study tailored to patient capabilities with inherent limitations. FINDINGS: The breasts are heterogeneously dense, which may obscure small masses (ACR BI-RADS breast composition Category c). There are no significant masses, abnormal calcifications, or other abnormalities. Parenchymal pattern is similar to prior studies. There is no developing density or architectural abnormality. The axilla and skin contours are unremarkable. No significant changes. MM/MM tomosynthesis screening BI IMPRESSION: -No mammographic evidence of malignancy. -Technically challenging exam tailored to patient capabilities with inherent limitations. ASSESSMENT: BI-RADS 2: Benign RECOMMENDATION: Routine annual mammography screening. This patient's information was entered into a reminder system with a target due date for their next mammogram.
== END 2023-01-20 13:05 | disposition home or self-care (01) ==
LOC: HO.MAMMO 13:04
PROVIDERS: PCP Internal Medicine; Visit Provider Internal Medicine
DX: Z12.31 Encounter for screening mammogram for malignant neoplasm of breast (principal)
CPT/HCPCS: 77063; 77067

== ENCOUNTER 2023-01-21 12:45 | Outpatient (REF) | payer OTHER, SELFPAY ==
--- NOTE | ~2023-01-21 | CT_ITS ---
EXAMINATION: CT CHEST WITHOUT CONTRAST CLINICAL INFORMATION: Pulmonary nodule COMPARISON: Chest CT 04/22/2022 TECHNIQUE: Multidetector volumetric CT imaging of the chest was done. Axial MIP volume rendering provided. Sagittal and coronal reformatted images were obtained. This CT examination was performed using dose optimization techniques as appropriate, variously including the following: *Automated exposure control *Adjustment of mA and/or kV according to patient size (this includes techniques or standardized protocols for targeted exams where dose is matched to indication/reason for exam; i.e. extremities or head) *Use of iterative reconstruction technique DLP: 88 mGy-cm FINDINGS: Central airways are patent. Lungs are adequately aerated. Moderate to severe emphysematous changes are again noted with similar biapical scarring and scattered subpleural reticular changes. Several cystic foci are again noted throughout the lungs. Several previously visualized pulmonary nodules and nodular densities are stable. No new suspicious pulmonary nodules visualized. The heart is normal in size. Coronary artery stent are present. There is no pericardial effusion. Normal caliber thoracic aorta. No gross mediastinal or hilar lymphadenopathy. No pathologically enlarged axillary lymph nodes. Visualized portion of the upper abdomen are grossly unremarkable. Mild degenerative changes of the spine. CT/CT chest wo IV con IMPRESSION: 1. Previously visualized pulmonary nodules and nodular densities are stable. No new suspicious pulmonary nodules visualized. 2. Emphysema with superimposed fibrosis. Fleischner guidelines were followed.
== END 2023-01-21 12:46 | disposition home or self-care (01) ==
LOC: HO.CT 12:45
PROVIDERS: PCP Internal Medicine; Visit Provider Hospitalist
DX: R91.1 Solitary pulmonary nodule (principal)
CPT/HCPCS: 71250

== ENCOUNTER → 2023-02-06 13:17 | Outpatient (BNVA) | payer OTHER, SELFPAY | PROVIDERS: PCP Internal Medicine; Visit Provider Nurse Practitioner Family | DX: K57.90 Diverticulosis of intestine, part unspecified, without perforation or abscess without bleeding (principal); K21.9 Gastro-esophageal reflux disease without esophagitis; K59.04 Chronic idiopathic constipation | CPT/HCPCS: 99212 ==

== ENCOUNTER → 2023-02-06 13:17 | Outpatient (AMB) | payer OTHER, SELFPAY ==
--- NOTE | 2023-02-06 13:19 | A.OFFVIS_ITS ---
Intake Vital Signs 02/06/23 13:20 Height 5 ft 1 in Weight 116 lb 13.52 oz BMI 22.1 BP 126/62 Blood Pressure Location Lt brachial Position Sitting Pulse 84 Intake Visit Reasons: 3 week follow up Intake Note: Ana presents in the office as a 3 week follow up. CC: She states that she is not having any concerns today. 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 Patient has a history of diverticulosis to sigmoid colon. Diagnosed in [address] scan of abdomen from December of this year and november showed and confirms the diagnosis. There was no inflammation. Patient reports severe constipation. Diverticulosis Chronic idiopathic constipation Chronic constipation. Patient will be started on Trulance. Patient can also take Colace at night time to soften her stools. Rectal bleed Patient reports occasional blood after having bowel movements. Will send a script for Proctosol. Patient will return in 3 weeks, sooner on as needed basis. Will hold off on sending patient for colonoscopy at this point. Will repeat blood work next visit. Her recent H&H mildly low. Patient is on Plavix. Patient denies any melena, unintentional weight loss or ribbon like stools. Patient is agreeable to this plan and verbalizes understanding of instructions. She was given the opportunity to ask questions and all questions answered. ? Thank you for allowing me to participate in her care Plan Medications New diphenhydramine-zinc acetate 2-0.1 % (Benadryl Extra Strength) 1 appl topical BID PRN 28.3 grams 0RF itching plecanatide (Trulance) 3 mg PO DAILY 30 tabs 3RF K59.09 hydrocortisone 2.5% (Proctosol HC) 1 appl [place] BID-QID PRN 30 grams 2RF hemorrhoids K64.9 docusate sodium 200 mg (2 x 100 mg) PO BEDTIME 180 caps 3RF K59.00 TODAY'S VISIT Patient is here today for follow-up. Patient states that she has been feeling better. Moving her bowels without any issues. Occasional acid reflux without dyspepsia, dysphagia or odynophagia. Patient denies melena, hematochezia, unintentional weight loss or ribbon like stools. Patient states that she no longer has abdominal discomfort. Denies any postprandial abdominal pain or bloating. Denies any nausea or vomiting. 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 Pressure ulcer of sacral region, stage 2 Pulmonary fibrosis Pulmonary nodules T2DM (type 2 diabetes mellitus) Type 2 diabetes mellitus with unspecified complications Vitamin D deficiency Surgical History History of bunionectomy History of total abdominal hysterectomy and bilateral salpingo-oophorectomy Hx of colonoscopy Family History Mother HTN (hypertension) Brother Lung cancer Daughter Breast cancer Maternal Aunt Breast cancer Daughter Eye cancer Social History Household Members: None Housing: Apartment Housing Other:: [facility] Are you a primary health care consultant to a significant other at home: No 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) Alcohol intake: current Alcohol intake frequency: holidays/special occasions only Patient Tobacco Use Status: Former Tobacco user Second Hand Smoke Exposure: No Advance Directives Date on File: 08/27/20 service: No Current occupational status: retired Review of Systems Const Denies weight gain and Denies weight loss ENT Reports no additional complaints, Denies dysphagia and Denies odynophagia Card Reports no additional complaints Resp Reports no additional complaints GI Denies abdominal pain, Denies belching, Denies melena, Denies bloating, Denies change in bowel habits, Denies dysphagia, Denies excessive flatus, Denies dyspepsia, Reports heartburn (Occasional), Denies diarrhea, Denies loose stools, Denies nausea, Denies odynophagia and Denies vomiting Reports no additional complaints Musc Reports no additional complaints Neuro Reports no additional complaints Psych Reports no additional complaints Endo Reports no additional complaints Physical Exam Vital Signs: Last Vital Signs Pulse 84 02/06/23 13:20 BP 126/62 02/06/23 13:20 BMI result Body Mass Index 22.1 Const General: healthy appearing, no acute distress and well developed Nutritional Appearance: well nourished Orientation/consciousness: patient oriented x3 HEENT Head: Yes normal to inspection, Yes normocephalic and Yes atraumatic Face and sinus: Yes normal facial exam Mouth: Normal oral and palatal mucosa present Throat: Yes posterior oropharynx normal, Yes tonsils normal and Yes uvula midline Eyes General: appearance normal, both eyes and all related structures Neck Neck: Yes normal visual inspection, Yes full ROM and Yes trachea midline Thyroid: Thyroid normal Resp Other: Uses O2 at 1 liter/minute on as needed basis Effort & Inspection: normal respiratory effort, able to speak in complete sentences, no tracheal deviation and symmetric chest movement Auscultation: clear to auscultation bilaterally Cardio Rate: regular rate Heart sounds: S1 normal heart sound present and S2 normal heart sound present GI Inspection: Yes normal to inspection and No distended Palpation (GI): Soft to palpation, not firm, nontender and No hepatosplenomegaly present Auscultation: normal bowel sounds General: Yes no CVA tenderness Back/Spine/Pelvis Back: no CVA tenderness Skin General skin exam: elasticity normal, turgor normal and dry skin Neuro General: patient oriented x3 Psych Appearance: grossly normal Mental Status: mental status grossly normal Speech and movement: Normal speech and movement present Affect: normal affect Assessment & Plan Assessment & Plan (1) Diverticulosis: Code(s): K57.90 - Diverticulosis of intestine, part unspecified, without perforation or abscess without bleeding Plan: Continue high-fiber diet. Patient was encouraged to increase fluid intake. May use probiotic (2) GERD (gastroesophageal reflux disease): Code(s): K21.9 - Gastro-esophageal reflux disease without esophagitis Qualifiers: Esophagitis presence: esophagitis presence not specified Qualified Code(s): K21.9 - Gastro-esophageal reflux disease without esophagitis Plan: Occasional acid reflux without dyspepsia, dysphagia or odynophagia. Patient can start taking omeprazole daily half an hour before breakfast. Discussed with patient avoiding dietary triggers and late night snacking. Staying upright for minimal 3 hours after meals discussed with patient. (3) Chronic idiopathic constipation: Code(s): K59.04 - Chronic idiopathic constipation Plan: Continue current management. Increase fluid intake and activity to promote better bowel motility. I will see patient in 2 months, sooner on as needed basis. Patient is agreeable to this plan and verbalizes understanding of instructions. She was given the opportunity to ask questions and all questions answered. Thank you for allowing me to participate in her care Medications: New omeprazole 40 mg PO DAILY 90 caps 0RF Coding Level of Care Code Est Pt Level 3 (71326) Diagnoses Diverticulosis K57.90 GERD (gastroesophageal reflux disease) K21.9 Esophagitis presence: esophagitis presence not specified Chronic idiopathic constipation K59.04 Time Spent (min) 30 Comment 20 minutes spent with patient and additional 10 minutes spent reviewing her records
[2023-02-06 13:20] VITALS: BP 126/62; PULSE 84; BMI 22.1
== END ==
PROVIDERS: PCP Internal Medicine; Visit Provider Nurse Practitioner Family
DX: K57.90 Diverticulosis of intestine, part unspecified, without perforation or abscess without bleeding (principal); K21.9 Gastro-esophageal reflux disease without esophagitis; K59.04 Chronic idiopathic constipation
CPT/HCPCS: 99213

== ENCOUNTER 2023-02-09 15:28 | Outpatient (AMB) | payer OTHER, SELFPAY ==
[2023-02-09 15:53] VITALS: BP 104/52; PULSE 90; O2SAT 94; BMI 21.9
--- NOTE | 2023-02-09 15:53 | A.OFFVIS_ITS ---
Intake Vital Signs 02/09/23 15:53 Height 5 ft 1 in Weight 116 lb BMI 21.9 BP 104/52 L Blood Pressure Location Lt brachial Position Standing Pulse 90 Pulse Source Pulse Oximeter Pulse Oximetry (%) 94 Oxygen Delivery Method Room Air Intake Visit Reasons: COPD Intake Note: pt is here for follow up Allergies codeine [Codeine] Allergy (Mild, Verified 02/09/23 15:56) DIZZINESS, VOMITING insulin lispro [INSULIN LISPRO] Allergy (Unknown, Verified 02/09/23 15:56) NAUSEA & VOMITING oxycodone [OXYCODONE] Allergy (Unknown, Verified 02/09/23 15:56) NAUSEA & VOMITING HPI HPI Comments History of Present Illness Details The patient is an 82-year-old woman with a known history of underlying pulmonary nodules. She was evaluated in the past by thoracic surgery at [facility]. She did undergo a PET scan and numerous CT scans demonstrating extensive nodular densities both lungs. She did not undergo any diagnostic interventions at that point. However, she was told that if the density grew that she would need to have a biopsy. she did not follow up further. Subsequently after that she did follow-up with Pulmonary which she had x-rays done at [facility]. Her x-rays did again demonstrate significant nodular opacities. No further testing was done per the patient. In the meantime she does have issues with cough and some shortness of breath. She denies any night sweats and denies any underlying fevers. I did review her CT scans from [facility] back in 2013. I also reviewed the x-rays from [facility]. At this point based on her underlying symptoms in the significant nodular densities and the abnormal chest x-rays the patient needs to have a repeat CT scan of the chest. 12/31/2020 the patient is here for pulmonary hospital follow-up visit. The patient was admitted to the hospital the end of July with severe COVID requiring a prolonged hospital stay due to the high oxygen requirements. The patient was able to be discharged to rehab now she is recuperating. Her oxygen requirement has decreased down to 2 L. she continues to use her respiratory medicine with good effect. While in the hospital she did have a DVT primarily involving her lower extremities. repeat CT a demonstrated no evidence of any pulmonary emboli. The patient was treated effectively for blood clots, although, she is no longer on anticoagulation. Just Plavix. At this point we have to make sure that she does not have any residual nonocclusive clots which will require additional anticoagulation. 04/02/2021 the patient is here for pulmonary follow-up visit. Overall the patient has been doing well. She continues use the oxygen with good response. She feels much improved from the severe COVID infection that she had. She has a hard time carrying her oxygen tanks with her multiple comorbidities and the fact that she uses a walker is hard for her to even put the oxygen tank on the walker. We did go for 6 minute walk test the patient did much better. she was able to ambulate for 6 minutes and after 4 minutes she did desaturate down to 88%. She was placed on 2 L nasal cannula improving her pulse ox to 96% with activity in the 98% on 2 L at rest. Patient will qualify in do very well with a conserving device. Therefore I will send the information over to her DME company, [employer] in order to get her on a B cylinder with a pulse valve. She d oes have the albuterol rescue inhaler that she has not use. She also continues to be on a small dose of Eliquis. 06/07/2021 the patient is here for a pulmonary follow-up visit. The patient has been having difficulties with her oxygen supplementation. Initially we had sent her prescription for her to start small cylinders that she could use with activity and also the concentrator in the home. But she was reluctant to do so. However, she continues to have dyspnea on exertion moderate severity. The patient needs the oxygen. She needs better portability. She has a hard time caring the oxygen tanks and asked why she was reluctant to take it in the 1st place. I did have her go for 6 minute walk test. Patient did desaturate to 88% on room air. She still qualifies for the oxygen. Conserving device would be the better option for her. The patient is agreeable to starting the oxygen at this time. I will send a script to her local DME company in order to do so. I will also request a portable oxygen concentrator for her to start the process to continue providing her better portability outside of the home. Her last chest x-ray still demonstrates significant reticulonodular densities which is the result of the COVID 19 lung infection. The patient will have a repeat chest x- ray to assess the degree of interstitial lung disease. Will also request pulmonary function studies to see her lung capacity at this time. 08/15/2021 the patient is here for a pulmonary follow-up visit. The patient has been doing well. She did have pulmonary function studies today. They appear that she does have a restrictive ventilatory defect from the interstitial lung disease That was the results of the COVID-19. This has resulted in a decreased diffusing capacity. . However, clinically the patient is appears to be doing better she is using the oxygen continuously. I did recommend that she only use it with activity. We did remove the oxygen while she is in the office and she maintain a pulse ox in the 90s and that was reassuring. The patient does need better portability. The oxygen tanks are not able to give her in off portability outside of the home. She needs to get a portable oxygen concentrator in in order to be able to have the portability that she needs outside of the home and also be able to travel. I am requesting a battery operated portable oxygen concentrator for the patient through her [employer] company at this time. the patient does have a rescue inhaler that she rarely uses. She does not have any maintenance therapy. 03/06/2022 the patient is here for a pulmonary follow-up visit. Overall she is doing well. She continues use the oxygen with a pulse valve 2 L pulse with good effect. She initially was getting her oxygen through [employer]. Although, recently changed to reliable respiratory due to the contracture all issues between her insurance company in her previous DME company. The patient was in the process of trying to get a portable oxygen concentrator. Portable oxygen concentrator will provide her with better portability outside of the home specially with significant arthritis difficult carry the tanks and handle the tank valves. Therefore, will submit a prescription for portable oxygen concentrator to her new DME company in order for them to start the process. The patient did have a chest x-ray which I personally reviewed with her. She does have interstitial changes but appeared to be stable. She also has pulmonary nodules appreciated. The nodules were also visualized before. In view of the pulmonary nodules she will need to have a repeat CT scan of the chest. Her last CT scan was back in July 2020 and therefore will have get a CT scan prior to her next visit. 06/16/2022 the patient is here for pulmonary follow-up visit. Overall she is doing relatively well. She is still complaining that she has not been able to get a portable oxygen concentrator. The patient does have a large tank with her with a conserving valve. I did provide her with a small piece then there are tank that she can use with concern valve. I gave her prescription she will talk to the [employer] tomorrow. Please the be 7 the require better with better portability as she Wait for the portable oxygen concentrator. The patient did undergo a CT scan of the chest personally by me. She has stable pulmonary nodules. Overall, she has new nodules be followed. She has also cavitary disease and cystic lesions. Lot of it is related to her significant COVID infection with some residual findings. Immune not do will need to be followed closely. The patient continues use respiratory therapy with good effect. Will go ahead and follow-up in the springtime and will repeat 6 minutes walk test the time. I am hopeful that if she continues to improve hopefully we can wean her off the oxygen altogether. 10/13/2022 the patient is here for a pulmonary follow-up visit. Overall she is doing well. She continues use the oxygen. Unfortunately she was switched over to a [employer] company that does not provide portable oxygen concentrator is. Therefore she is using the small P 70s with good effect. She does have a plann ed trip scheduled to [place]. Before that she will need to leaks a portable oxygen concentrator from the [employer] company. We did review her last CT scan of the chest was back in the summer of 2021 demonstrating some new pulmonary nodules in some that were cavitated. The patient has had significant weight loss. This has been non intentional. Therefore, plan to repeat the CT scan of the chest sometime in the summer of 2022 or sooner if she develops worsening symptoms. In part the patient is having significant tooth decay after having COVID. Is likely related. She was given protein shakes by her insurance company in order to try to maintain her weight and her caloric intake. 02/09/2023 the patient is here for a pulmonary follow-up visit. Overall the patient is doing well. She found that her portable oxygen concentrator. She does not like the battery life but it is reasonable. The patient does not need it all the time just with activity and therefore she can limit the battery lysed. She also needs a senior net software developer for the car. The patient has a planned trip to [place] which I believe at this point is reasonable if she can wait till the fall when is less hot and the humid. The patient also underwent an imaging study demonstrating stability in the pulmonary fibrosis in the emphysema. The pulmonary nodules also appeared to be stable. She will need another repeat CT scan in 6-8 months because the size of the pulmonary nodules. 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 Pressure ulcer of sacral region, stage 2 Pulmonary fibrosis Pulmonary nodules T2DM (type 2 diabetes mellitus) Type 2 diabetes mellitus with unspecified complications Vitamin D deficiency Surgical History History of bunionectomy History of total abdominal hysterectomy and bilateral salpingo-oophorectomy Hx of colonoscopy Family History Mother HTN (hypertension) Brother Lung cancer Daughter Breast cancer Maternal Aunt Breast cancer Daughter Eye cancer Social History Household Members: None Housing: Apartment Housing Other:: [facility] Are you a primary day care home mother to a significant other at home: No Do 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 have 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) Alcohol intake: current Alcohol intake frequency: holidays/special occasions only Patient Tobacco Use Status: Former Tobacco user Second Hand Smoke Exposure: No Advance Directives Date on File: 08/27/20 service: No Current occupational status: retired Review of Systems Const Denies chills, Denies fatigue, Denies fever(s), Denies frequent falls, Denies weakness, Denies weight gain and Denies weight loss ENT Denies dizziness Card Denies chest pain, Denies leg edema, Denies lightheadedness, Denies palpitations, Reports dyspnea on exertion, Denies orthopnea and Denies other (loss of consciousness) Resp Denies cough and Reports dyspnea on exertion GI Reports abdominal pain, Denies hematochezia and Denies change in stool character Musc Reports abnormal gait, Reports myalgias, Reports arthralgias, Reports limited range of motion, Denies muscle weakness, Denies numbness, Denies radiating pain into limb and Denies tingling Neuro Reports abnormal gait, Denies dizziness, Denies frequent falls, Denies numbness, Denies tingling and Denies weakness Endo Denies fatigue and Denies palpitations Physical Exam Vital Signs: Last Vital Signs Pulse 90 02/09/23 15:53 BP 104/52 L 02/09/23 15:53 Pulse Ox 94 02/09/23 15:53 Oxygen Delivery Method Room Air 02/09/23 15:53 BMI result Body Mass Index 21.9 Const General: alert Eyes Pupils: Equal, round and reactive pupils present Neck Neck: Yes normal visual inspection, Yes full ROM and Yes no lymphadenopathy Chest Chest palpation & inspection: normal inspection of the chest Resp Auscultation: no crackles and diminished lung sounds Cardio Rate: regular rate Rhythm: regular rhythm Heart sounds: S1 normal heart sound present and S2 normal heart sound present GI Palpation (GI): Soft to palpation and nontender Auscultation: normal bowel sounds Skin General skin exam: rashes and/or lesions noted Neuro Cranial nerves: Yes Equal, round and reactive pupils present Assessment & Plan Assessment & Plan (1) Chronic respiratory failure: Code(s): J96.10 - Chronic respiratory failure, unspecified whether with hypoxia or hypercapnia Qualifiers: Respiratory failure complication: hypoxia Qualified Code(s): J96.11 - Chronic respiratory failure with hypoxia (2) COPD (chronic obstructive pulmonary disease): Code(s): J44.9 - Chronic obstructive pulmonary disease, unspecified Qualifiers: COPD type: chronic bronchitis Chronic bronchitis type: simple Qualified Code(s): J41.0 - Simple chronic bronchitis (3) DVT, bilateral lower limbs: Code(s): I82.403 - Acute embolism and thrombosis of unspecified deep veins of lower extremity, bilateral Qualifiers: Affected thrombotic vein of extremity: other lower extremity vein Chronicity: chronic Qualified Code(s): I82.593 - Chronic embolism and thrombosis of other specified deep vein of lower extremity, bilateral (4) Pulmonary nodule: Code(s): R91.1 - Solitary pulmonary nodule Plan Continue oxygen supplementation with activity with POC FAUSTINO as needed CT chest in 6 months follow-up 2-3 months Orders: Orders CT chest wo IV con 6 Months R91.1 - Solitary pulmonary nodule Coding Level of Care Code Est Pt Level 4 (33768) Diagnoses Chronic respiratory failure J96.11 Respiratory failure complication: hypoxia COPD (chronic obstructive pulmonary disease) J41.0 COPD type: chronic bronchitis Chronic bronchitis type: simple DVT, bilateral lower limbs I82.593 Affected thrombotic vein of extremity: other lower extremity vein Chronicity: chronic Pulmonary nodule R91.1 Time Spent (min) 18
== END 2023-02-09 16:20 | disposition home or self-care (01) ==
PROVIDERS: PCP Internal Medicine; Visit Provider Hospitalist
DX: J96.11 Chronic respiratory failure with hypoxia (principal); J41.0 Simple chronic bronchitis; I82.593 Chronic embolism and thrombosis of other specified deep vein of lower extremity, bilateral; R91.1 Solitary pulmonary nodule
CPT/HCPCS: 99214

== ENCOUNTER → 2023-02-09 15:28 | Outpatient (BNVA) | payer OTHER, SELFPAY | PROVIDERS: Visit Provider Hospitalist | DX: J41.0 Simple chronic bronchitis (principal); J96.11 Chronic respiratory failure with hypoxia; I82.593 Chronic embolism and thrombosis of other specified deep vein of lower extremity, bilateral; R91.1 Solitary pulmonary nodule | CPT/HCPCS: 99212 ==

== ENCOUNTER 2023-04-06 13:30 | Outpatient (AMB) | payer OTHER, SELFPAY ==
--- NOTE | 2023-04-06 13:59 | MHC.OFFVIS ---
Intake Vital Signs 04/06/23 14:00 Height 5 ft 1 in Weight 127 lb 13.89 oz BMI 24.2 BP 112/76 Blood Pressure Location Rt brachial Position Sitting Pulse 81 Intake Visit Reasons: 1 year fu Intake Note: 1 year follow up w/ EKG Area Operations Manager Required: Yes Area Operations Manager Language: Automatic Nailing Machine Feeder Name: Lizeth [id number] Accompanied by: Daughter Allergies codeine [Codeine] Allergy (Mild, Verified 04/06/23 14:04) DIZZINESS, VOMITING insulin lispro [INSULIN LISPRO] Allergy (Unknown, Verified 04/06/23 14:04) NAUSEA & VOMITING oxycodone [OXYCODONE] Allergy (Unknown, Verified 04/06/23 14:04) NAUSEA & VOMITING Medication List - Last Reconciled 04/06/23 by [place] MD albuterol sulfate 90 mcg/actuation 90 mcg inhalation Q4H PRN alcohol swabs (Alcohol Prep Pads) 1 pad topical QID atorvastatin 80 mg PO BEDTIME blood sugar diagnostic (FreeStyle Lite Strips) As directed..Test blood sugar 3x per day. budesonide-formoterol 160-4.5 mcg/actuation (Symbicort) inhalation calcium carbonate-vitamin D3 600 mg-20 mcg (800 unit) 0 tabs PO clopidogrel 75 mg PO DAILY diphenhydramine-zinc acetate 2-0.1 % (Benadryl Extra Strength) 1 appl topical BID PRN docusate sodium 200 mg (2 x 100 mg) PO BEDTIME ergocalciferol (vitamin D2) 1,250 mcg PO Q30D ezetimibe 10 mg PO QAM fluocinolone 0.01% topical hydrocortisone 2.5% (Proctosol HC) 1 appl [place] BID-QID PRN insulin glargine (Lantus Solostar U-100 Insulin) 10 units subcut QPM lancets (TRUEplus Lancets) As directed..Test blood sugar 3x per day. loratadine 10 mg PO QAM melatonin 3 mg PO BEDTIME metformin 1,000 mg PO BID metoprolol tartrate 25 mg PO BID [id number] fum-folic ac 7.5 mg iron-400 mcg 1 tab PO QAM nitroglycerin 0.4 mg sublingual Q5M PRN omeprazole 40 mg PO DAILY oxybutynin chloride ER 5 mg PO BEDTIME pen needle, diabetic As directed plecanatide (Trulance) 3 mg PO DAILY polyethylene glycol 3350 17 grams PO DAILY PRN repaglinide 1 mg PO TID tramadol 50 mg PO TID PRN trazodone 1 tab PO BEDTIME PRN valacyclovir 1,000 mg PO TID HPI HPI Comments History of Present Illness Details Ana returns for follow-up after regarding suspected coronary disease. She has multiple vascular risk factors including type 2 diabetes, hypertension, dyslipidemia. Overall, she is generally doing okay. Lots of frailty related issues but no clear-cut angina or relevant cardiac symptoms. Daughter is also here for the appointment. Discussed with them using 3rd pressman. 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 Pressure ulcer of sacral region, stage 2 Pulmonary fibrosis Pulmonary nodules T2DM (type 2 diabetes mellitus) Type 2 diabetes mellitus with unspecified complications Vitamin D deficiency Surgical History History of bunionectomy History of total abdominal hysterectomy and bilateral salpingo-oophorectomy Hx of colonoscopy Family History Mother HTN (hypertension) Brother Lung cancer Daughter Breast cancer Maternal Aunt Breast cancer Daughter Eye cancer Social History Household Members: None Housing: Apartment Housing Other:: [facility] Are you a primary acute care clinical nurse specialist to a significant other at home: No Do 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 have 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 or other home services: Yes (head of strategy) Alcohol intake: current Alcohol intake frequency: holidays/special occasions only Patient Tobacco Use Status: Former Tobacco user Second Hand Smoke Exposure: No Advance Directives Date on File: 08/27/20 service: No Current occupational status: retired Review of Systems Const Denies weakness ENT Denies dizziness Card Denies chest pain, Denies chest pain with activity, Denies syncope, Denies rapid heart rate, Denies pedal edema, Denies edema, Denies leg edema, Denies lightheadedness, Denies palpitations, Denies dyspnea, Denies dyspnea on exertion and Denies orthopnea Resp Denies cough, Denies dyspnea and Denies dyspnea on exertion GI Denies hematochezia and Denies change in stool character Musc Denies abnormal gait, Denies muscle cramps, Denies muscle weakness, Denies numbness, Denies radiating pain into limb and Denies tingling Neuro Denies abnormal gait, Denies dizziness, Denies syncope, Denies numbness, Denies tingling and Denies weakness Endo Denies palpitations Physical Exam Vital Signs: Last Vital Signs Pulse 81 04/06/23 14:00 BP 112/76 04/06/23 14:00 BMI result Body Mass Index 24.2 Const General: comfortable and no acute distress Nutritional Appearance: thin Orientation/consciousness: patient oriented x3 HEENT Other: Unremarkable Head: Yes normal to inspection Neck Neck: Yes normal visual inspection Chest Chest palpation & inspection: normal inspection of the chest Resp Auscultation: clear to auscultation bilaterally Cardio Palpation: normal PMI Heart sounds: S1 normal heart sound present, S2 normal heart sound present, no gallops, Murmur heart sound present systolic I/ and at the right sternal border and no rubs GI Palpation (GI): Soft to palpation Back/Spine/Pelvis Other: unremarkable Skin General skin exam: no rashes or lesions noted Neuro General: patient oriented x3 Extrem General: Yes normal to inspection Psych Mental Status: mental status grossly normal Office Procedures EKG Details: EKG with sinus, 81/min, sinus arrhythmia, no significant ST-T changes, no ischemia or infarction patterns, normal [place]/QTc. [id number], Complete Assessment & Plan Assessment & Plan (1) Atherosclerotic cardiovascular disease: Code(s): I25.10 - Atherosclerotic heart disease of [place] coronary artery without angina pectoris (2) Type 2 diabetes mellitus with unspecified complications: Code(s): E11.8 - Type 2 diabetes mellitus with unspecified complications (3) Essential hypertension: Code(s): I10 - Essential (primary) hypertension (4) Other and unspecified hyperlipidemia: Code(s): E78.5 - Hyperlipidemia, unspecified Plan Cardiac studies reviewed. Echocardiogram 2020 with LVEF > 70% and was otherwise unremarkable. Myocardial perfusion imaging study 2020 with mild intensity apical ischemia. She has no clear angina or definitive cardiac symptoms. Overall, considering her age, pulmonary status, comorbidities, frailty, likely conservative care. She has been on long-term Plavix instead of aspirin and that can be continued without changes. Otherwise, on metoprolol. He is also on statins and Zetia. Will need to get lipid panel from PCP. For diabetes, she is on insulin and metformin. Otherwise, stable. They will call us with any ongoing concerns. Follow-up in 1 year. Discussed with patient and daughter using 3rd pressman. Coding Level of Care Code Est Pt Level 4 (93616) Diagnoses Atherosclerotic cardiovascular disease I25.10 Type 2 diabetes mellitus with unspecified complications E11.8 Essential hypertension I10 Other and unspecified hyperlipidemia E78.5 CPT Codes EKG - CPT: 52412-[id number], Complete ([id number])
[2023-04-06 14:00] VITALS: BP 112/76; PULSE 81; BMI 24.2
== END 2023-04-06 14:19 | disposition home or self-care (01) ==
PROVIDERS: PCP Internal Medicine; Referring Provider Internal Medicine; Visit Provider Internal Medicine
DX: I25.10 Atherosclerotic heart disease of native coronary artery without angina pectoris (principal); E11.8 Type 2 diabetes mellitus with unspecified complications; I10 Essential (primary) hypertension; E78.5 Hyperlipidemia, unspecified
CPT/HCPCS: 93010; 99214

== ENCOUNTER → 2023-04-06 13:30 | Outpatient (BNVA) | payer OTHER, SELFPAY | PROVIDERS: PCP Internal Medicine; Referring Provider Internal Medicine; Visit Provider Internal Medicine | DX: I25.10 Atherosclerotic heart disease of native coronary artery without angina pectoris (principal); I10 Essential (primary) hypertension; E11.8 Type 2 diabetes mellitus with unspecified complications; E78.5 Hyperlipidemia, unspecified; Z79.02 Long term (current) use of antithrombotics/antiplatelets; Z79.4 Long term (current) use of insulin; Z79.899 Other long term (current) drug therapy | CPT/HCPCS: 93005; 99212 ==

== ENCOUNTER 2023-04-28 15:09 | Outpatient (REF) | payer OTHER, SELFPAY ==
[2023-04-28 16:49] LABS: Microalbumin Urine < 5.0 mg/L
== END 2023-04-28 15:10 | disposition home or self-care (01) ==
LOC: HO.HHCL 15:09
PROVIDERS: Visit Provider Internal Medicine
DX: E11.65 Type 2 diabetes mellitus with hyperglycemia (principal)
CPT/HCPCS: 82043; 82570

== ENCOUNTER 2023-04-29 08:14 | Outpatient (REF) | payer OTHER, SELFPAY ==
[2023-04-29 11:57] LABS: Anion Gap 10 (12-20); Blood Urea Nitrogen 12 mg/dL (9-16); Carbon Dioxide 29 mmol/L (22-29); Chloride 106 mmol/L (96-108); Cholesterol 224 mg/dL (<200); Estimated Glomerular Filt Rate > 60; Glucose Random 171 mg/dL (60-115); HDL Cholesterol 82 mg/dL (>40); LDL Cholesterol Calculated 130 mg/dL (<100); Potassium 3.9 mmol/L (3.3-5.1); Sodium 141 mmol/L (135-145); Triglycerides 60 mg/dL (<150)
== END 2023-04-29 08:15 | disposition home or self-care (01) ==
LOC: HO.HHCL 08:14
PROVIDERS: Visit Provider Internal Medicine
DX: E11.65 Type 2 diabetes mellitus with hyperglycemia (principal)
CPT/HCPCS: 36415; 80048; 80061

== ENCOUNTER 2023-06-11 10:20 | Outpatient (AMB) | payer OTHER, SELFPAY ==
--- NOTE | 2023-06-11 11:23 | A.OFFVIS_ITS ---
Intake Vital Signs 06/11/23 11:24 Height 5 ft 1 in BP 104/52 L Blood Pressure Location Lt brachial Position Sitting Pulse 90 Pulse Source Pulse Oximeter Pulse Oximetry (%) 96 Oxygen Delivery Method Room Air Intake Visit Reasons: 6 minute walk Allergies codeine [Codeine] Allergy (Mild, Verified 06/11/23 11:24) DIZZINESS, VOMITING insulin lispro [INSULIN LISPRO] Allergy (Unknown, Verified 06/11/23 11:24) NAUSEA & VOMITING oxycodone [OXYCODONE] Allergy (Unknown, Verified 06/11/23 11:24) NAUSEA & VOMITING Medication List - Last Reconciled 06/11/23 by Carol Rodriguez LPN albuterol sulfate 90 mcg/actuation 90 mcg inhalation Q4H PRN alcohol swabs (Alcohol Prep Pads) 1 pad topical QID atorvastatin 80 mg PO BEDTIME blood sugar diagnostic (FreeStyle Lite Strips) As directed..Test blood sugar 3x per day. budesonide-formoterol 160-4.5 mcg/actuation (Symbicort) inhalation calcium carbonate-vitamin D3 600 mg-20 mcg (800 unit) 0 tabs PO clopidogrel 75 mg PO DAILY diphenhydramine-zinc acetate 2-0.1 % (Benadryl Extra Strength) 1 appl topical BID PRN docusate sodium 200 mg (2 x 100 mg) PO BEDTIME ergocalciferol (vitamin D2) 1,250 mcg PO Q30D ezetimibe 10 mg PO QAM fluocinolone 0.01% topical hydrocortisone 2.5% (Proctosol HC) 1 appl [place] BID-QID PRN insulin glargine (Lantus Solostar U-100 Insulin) 10 units subcut QPM lancets (TRUEplus Lancets) As directed..Test blood sugar 3x per day. loratadine 10 mg PO QAM melatonin 3 mg PO BEDTIME metformin 1,000 mg PO BID metoprolol tartrate 25 mg PO BID ndphfkap-qke-ljww fum-folic ac 7.5 mg iron-400 mcg 1 tab PO QAM nitroglycerin 0.4 mg sublingual Q5M PRN omeprazole 40 mg PO DAILY oxybutynin chloride ER 5 mg PO BEDTIME pen needle, diabetic As directed plecanatide (Trulance) 3 mg PO DAILY polyethylene glycol 3350 17 grams PO DAILY PRN repaglinide 1 mg PO TID tramadol 50 mg PO TID PRN trazodone 1 tab PO BEDTIME PRN valacyclovir 1,000 mg PO TID PFSH Medical History Angina pectoris Asthma Atherosclerotic cardiovascular disease Bursitis of right shoulder Chronic respiratory failure Chronic respiratory failure COPD (chronic obstructive pulmonary disease) Diverticulosis DVT, bilateral lower limbs Essential hypertension Fungal dermatitis High cholesterol HLD (hyperlipidemia) HTN (hypertension) Hyperlipidemia, unspecified 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 Pressure ulcer of sacral region, stage 2 Pulmonary fibrosis Pulmonary nodules T2DM (type 2 diabetes mellitus) Type 2 diabetes mellitus with unspecified complications Vitamin D deficiency Surgical History History of bunionectomy History of total abdominal hysterectomy and bilateral salpingo-oophorectomy Hx of colonoscopy Family History Mother HTN (hypertension) Brother Lung cancer Daughter Breast cancer Maternal Aunt Breast cancer Daughter Eye cancer Social History Household Members: None Housing: Apartment Housing Other:: [facility] Are you a primary urgent care nurse practitioner to a significant other at home: No Do 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 have 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 or other home services: Yes (district administrative assistant) Alcohol intake: current Alcohol intake frequency: holidays/special occasions only Patient Tobacco Use Status: Former Tobacco user Second Hand Smoke Exposure: No Advance Directives Date on File: 08/27/20 service: No Current occupational status: retired Office Procedures 6 Minute Walk Time:: 10:30 SPO2 % at rest: 96 Pulse at rest: 100 SPO2 % during excercise: 93 Pulse during excercise: 112 SPO2 % after excercise: 96 Pulse after excercise: 102 Distance in yards walked: 180 Gaurang Score: 2 Performance Observations:: Ana walked on level ground with the use of a walker, she walked on room air for the entire walk maintaining her SPO2 93-94%, no supplemental O2 needed [id number] - 6 Minute Walk Assessment & Plan Assessment & Plan (1) COPD (chronic obstructive pulmonary disease): Code(s): J44.9 - Chronic obstructive pulmonary disease, unspecified Qualifiers: COPD type: chronic bronchitis Chronic bronchitis type: simple Qualified Code(s): J41.0 - Simple chronic bronchitis Orders: Orders AMB 6 minute walk Today J44.9 - Chronic obstructive pulmonary disease, unspecified Coding Level of Care Code Established Pt Est Pt Level 1 (46949) Patient Type Established Diagnoses Simple chronic bronchitis J41.0 COPD type: chronic bronchitis Chronic bronchitis type: simple CPT Codes Coding ([id number]) Comment NURSE VISIT ONLY
[2023-06-11 11:24] VITALS: BP 104/52; PULSE 90; O2SAT 96
[2023-06-11 11:26] VITALS: PULSE 100; O2SAT 96
== END 2023-06-11 10:58 | disposition home or self-care (01) ==
PROVIDERS: PCP Internal Medicine; Visit Provider Hospitalist
DX: J41.0 Simple chronic bronchitis (principal)
CPT/HCPCS: 94618

== ENCOUNTER → 2023-06-11 10:20 | Outpatient (BNVA) | payer OTHER, SELFPAY | PROVIDERS: PCP Internal Medicine; Visit Provider Hospitalist | DX: J41.0 Simple chronic bronchitis (principal) | CPT/HCPCS: 94618; 99211 ==

== ENCOUNTER 2023-08-20 08:31 | Outpatient (AMB) | payer OTHER, SELFPAY ==
--- NOTE | 2023-08-20 09:45 | MHC.OFFVIS ---
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 She was evaluated in the past by thoracic surgery at [facility]. She did undergo a PET scan and numerous CT scans demonstrating extensive nodular densities both lungs. She did not undergo any diagnostic interventions at that point. However, she was told that if the density grew that she would need to have a biopsy. she did not follow up further. Subsequently after that she did follow-up with Pulmonary which she had x-rays done at [facility]. Her x-rays did again demonstrate significant nodular opacities. No further testing was done per the patient. In the meantime she does have issues with cough and some shortness of breath. She denies any night sweats and denies any underlying fevers. I did review her CT scans from [facility] back in 2013. I also reviewed the x-rays from [facility]. At this point based on her underlying symptoms in the significant nodular densities and the abnormal chest x-rays the patient needs to have a repeat CT scan of the chest. 12/31/2020 the patient is here for pulmonary hospital follow-up visit. The patient was admitted to the hospital the end of July with severe COVID requiring a prolonged hospital stay due to the high oxygen requirements. The patient was able to be discharged to rehab now she is recuperating. Her oxygen requirement has decreased down to 2 L. she continues to use her respiratory medicine with good effect. While in the hospital she did have a DVT primarily involving her lower extremities. repeat CT a demonstrated no evidence of any pulmonary emboli. The patient was treated effectively for blood clots, although, she is no longer on anticoagulation. Just Plavix. At this point we have to make sure that she does not have any residual nonocclusive clots which will require additional anticoagulation. 04/02/2021 the patient is here for pulmonary follow-up visit. Overall the patient has been doing well. She continues use the oxygen with good response. She feels much improved from the severe COVID infection that she had. She has a hard time carrying her oxygen tanks with her multiple comorbidities and the fact that she uses a walker is hard for her to even put the oxygen tank on the walker. We did go for 6 minute walk test the patient did much better. she was able to ambulate for 6 minutes and after 4 minutes she did desaturate down to 88%. She was placed on 2 L nasal cannula improving her pulse ox to 96% with activity in the 98% on 2 L at rest. Patient will qualify in do very well with a conserving device. Therefore I will send the information over to her DME company, [facility] in order to get her on a B cylinder with a pulse valve. She does have the albuterol rescue inhaler that she has not use. She also continues to be on a small dose of Eliquis. 06/07/2021 the patient is here for a pulmonary follow-up visit. The patient has been having difficulties with her oxygen supplementation. Initially we had sent her prescription for her to start small cylinders that she could use with activity and also the concentrator in the home. But she was reluctant to do so. However, she continues to have dyspnea on exertion moderate severity. The patient needs the oxygen. She needs better portability. She has a hard time caring the oxygen tanks and asked why she was reluctant to take it in the 1st place. I did have her go for 6 minute walk test. Patient did desaturate to 88% on room air. She still qualifies for the oxygen. Conserving device would be the better option for her. The patient is agreeable to starting the oxygen at this time. I will send a script to her local DME company in order to do so. I will also request a portable oxygen concentrator for her to start the process to continue providing her better portability outside of the home. Her last chest x-ray still demonstrates significant reticulonodular densities which is the result of the COVID 19 lung infection. The patient will have a repeat chest x-ray to assess the degree of interstitial lung disease. Will also request pulmonary function studies to see her lung capacity at this time. 08/15/2021 the patient is here for a pulmonary follow-up visit. The patient has been doing well. She did have pulmonary function studies today. They appear that she does have a restrictive ventilatory defect from the interstitial lung disease That was the results of the COVID-19. This has resulted in a decreased diffusing capacity. . However, clinically the patient is appears to be doing better she is using the oxygen continuously. I did recommend that she only use it with activity. We did remove the oxygen while she is in the office and she maintain a pulse ox in the 90s and that was reassuring. The patient does need better portability. The oxygen tanks are not able to give her in off portability outside of the home. She needs to get a portable oxygen concentrator in in order to be able to have the portability that she needs outside of the home and also be able to travel. I am requesting a battery operated portable oxygen concentrator for the patient through her [employer] company at this time. the patient does have a rescue inhaler that she rarely uses. She does not have any maintenance therapy. 03/06/2022 the patient is here for a pulmonary follow-up visit. Overall she is doing well. She continues use the oxygen with a pulse valve 2 L pulse with good effect. She initially was getting her oxygen through [employer]. Although, recently changed to reliable respiratory due to the contracture all issues between her insurance company in her previous DME company. The patient was in the process of trying to get a portable oxygen concentrator. Portable oxygen concentrator will provide her with better portability outside of the home specially with significant arthritis difficult carry the tanks and handle the tank valves. Therefore, will submit a prescription for portable oxygen concentrator to her new DME company in order for them to start the process. The patient did have a chest x-ray which I personally reviewed with her. She does have interstitial changes but appeared to be stable. She also has pulmonary nodules appreciated. The nodules were also visualized before. In view of the pulmonary nodules she will need to have a repeat CT scan of the chest. Her last CT scan was back in July 2020 and therefore will have get a CT scan prior to her next visit. 06/16/2022 the patient is here for pulmonary follow-up visit. Overall she is doing relatively well. She is still complaining that she has not been able to get a portable oxygen concentrator. The patient does have a large tank with her with a conserving valve. I did provide her with a small piece then there are tank that she can use with concern valve. I gave her prescription she will talk to the [employer] tomorrow. Please the be 7 the require better with better portability as she Wait for the portable oxygen concentrator. The patient did undergo a CT scan of the chest personally by me. She has stable pulmonary nodules. Overall, she has new nodules be followed. She has also cavitary disease and cystic lesions. Lot of it is related to her significant COVID infection with some residual findings. Immune not do will need to be followed closely. The patient continues use respiratory therapy with good effect. Will go ahead and follow-up in the springtime and will repeat 6 minutes walk test the time. I am hopeful that if she continues to improve hopefully we can wean her off the oxygen altogether. 10/13/2022 the patient is here for a pulmonary follow-up visit. Overall she is doing well. She continues use the oxygen. Unfortunately she was switched over to a [employer] company that does not provide portable oxygen concentrator is. Therefore she is using the small P 70s with good effect. She does have a planned trip scheduled to [place]. Before that she will need to leaks a portable oxygen concentrator from the [employer]. We did review her last CT scan of the chest was back in the summer of 2021 demonstrating some new pulmonary nodules in some that were cavitated. The patient has had significant weight loss. This has been non intentional. Therefore, plan to repeat the CT scan of the chest sometime in the summer of 2022 or sooner if she develops worsening symptoms. In part the patient is having significant tooth decay after having COVID. Is likely related. She was given protein shakes by her insurance company in order to try to maintain her weight and her caloric intake. 02/09/2023 the patient is here for a pulmonary follow-up visit. Overall the patient is doing well. She found that her portable oxygen concentrator. She does not like the battery life but it is reasonable. The patient does not need it all the time just with activity and therefore she can limit the battery lysed. She also needs a bull chain operator for the car. The patient has a planned trip to [place] which I believe at this point is reasonable if she can wait till the fall when is less hot and the humid. The patient also underwent an imaging study demonstrating stability in the pulmonary fibrosis in the emphysema. The pulmonary nodules also appeared to be stable. She will need another repeat CT scan in 6-8 months because the size of the pulmonary nodules. 08/20/2023 the patient is here for a pulmonary follow-up visit. She had gone to [place] for about 2 months. Before that she was tested and she did not need oxygen which was reassuring. Ultimately when she got to [place] she got sick with COVID and was feeling malaise from that. Although I did not really affect her respiratory status which is reassuring. Subsequently after that she got sick again with mycoplasma lower respiratory infection. She was given antibiotics. And currently she is feeling better. She still has a cough and soreness of the throat but her overall breathing is better. She feels tired. Denies any fevers or chills. She is also having pain of her foot. She did have x-rays demonstrating some screws that she has had placed before. She is wondering if she needs have those screws taken out. She will talk to her primary care doctor. Explained to her that possibly is not related to the screws and she is having some neuropathy. The patient will start just a short course of antibiotics for her persistent cough to make sure that we treat the mycoplasma completely. She is also has pulmonary nodules and she is scheduled for CT scan sometime in August. Therefore will be able to assess any potential changes at that point. 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 Pressure ulcer of sacral region, stage 2 Pulmonary fibrosis Pulmonary nodules T2DM (type 2 diabetes mellitus) Type 2 diabetes mellitus with unspecified complications Vitamin D deficiency Surgical History History of bunionectomy History of total abdominal hysterectomy and bilateral salpingo-oophorectomy Hx of colonoscopy Family History Mother HTN (hypertension) Brother Lung cancer Daughter Breast cancer Maternal Aunt Breast cancer Daughter Eye cancer Social History Household Members: None Housing: Apartment Housing Other:: [facility] Are you a primary child care aide to a significant other at home: No 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) Alcohol intake: current Alcohol intake frequency: holidays/special occasions only Comment: PT SLEEPING Patient Tobacco Use Status: Former Tobacco user Second Hand Smoke Exposure: No Advance Directives Date on File: 08/27/20 service: No Current occupational status: retired Review of Systems Const Denies chills, Denies fatigue, Denies fever(s), Denies frequent falls, Denies weakness, Denies weight gain and Denies weight loss ENT Denies dizziness Card Denies chest pain, Denies leg edema, Denies lightheadedness, Denies palpitations, Reports dyspnea on exertion, Denies orthopnea and Denies other (loss of consciousness) Resp Reports chest congestion, Reports cough and Reports dyspnea on exertion GI Reports abdominal pain, Denies hematochezia and Denies change in stool character Musc Reports abnormal gait, Reports myalgias, Reports arthralgias, Reports limited range of motion, Denies muscle weakness, Denies numbness, Denies radiating pain into limb and Denies tingling Neuro Reports abnormal gait, Denies dizziness, Denies frequent falls, Denies numbness, Denies tingling and Denies weakness Endo Denies fatigue and Denies palpitations Physical Exam Vital Signs: Last Vital Signs Pulse 76 08/20/23 09:46 Pulse Ox 94 08/20/23 09:46 Oxygen Delivery Method Room Air 08/20/23 09:46 BMI result Body Mass Index 24.2 Const General: alert Eyes Pupils: Equal, round and reactive pupils present Neck Neck: Yes normal visual inspection, Yes full ROM and Yes no lymphadenopathy Chest Chest palpation & inspection: normal inspection of the chest Resp Effort & Inspection: normal respiratory effort Auscultation: no crackles and diminished lung sounds Cardio Rate: regular rate Rhythm: regular rhythm Heart sounds: S1 normal heart sound present and S2 normal heart sound present GI Palpation (GI): Soft to palpation and nontender Auscultation: normal bowel sounds Skin General skin exam: rashes and/or lesions noted Neuro Cranial nerves: Yes Equal, round and reactive pupils present Assessment & Plan Assessment & Plan (1) Bronchitis: Code(s): J40 - Bronchitis, not specified as acute or chronic (2) Chronic respiratory failure: Code(s): J96.10 - Chronic respiratory failure, unspecified whether with hypoxia or hypercapnia Qualifiers: Respiratory failure complication: hypoxia Qualified Code(s): J96.11 - Chronic respiratory failure with hypoxia (3) COPD (chronic obstructive pulmonary disease): Code(s): J44.9 - Chronic obstructive pulmonary disease, unspecified Qualifiers: COPD type: chronic bronchitis Chronic bronchitis type: simple Qualified Code(s): J41.0 - Simple chronic bronchitis (4) DVT, bilateral lower limbs: Code(s): I82.403 - Acute embolism and thrombosis of unspecified deep veins of lower extremity, bilateral Qualifiers: Affected thrombotic vein of extremity: other lower extremity vein Chronicity: chronic Qualified Code(s): I82.593 - Chronic embolism and thrombosis of other specified deep vein of lower extremity, bilateral (5) Pulmonary nodule: Code(s): R91.1 - Solitary pulmonary nodule Plan Holding oxygen at this time start Doxycycline start cough medicine FAUSTINO as needed CT chest follow-up 2-3 months Medications: New benzonatate 200 mg PO BID 30 days PRN 60 caps 6RF cough doxycycline hyclate 100 mg PO BID 10 days 20 caps 0RF dextromethorphan HBr 30 mg (2 x 15 mg) PO Q8H 30 days PRN 60 caps 4RF cough Coding Level of Care Code Est Pt Level 4 (14488) Diagnoses Bronchitis J40 Chronic respiratory failure with hypoxia J96.11 Respiratory failure complication: hypoxia Simple chronic bronchitis J41.0 COPD type: chronic bronchitis Chronic bronchitis type: simple 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
[2023-08-20 09:46] VITALS: PULSE 76; O2SAT 94; BMI 24.2
== END 2023-08-20 10:45 | disposition home or self-care (01) ==
PROVIDERS: PCP Internal Medicine; Visit Provider Hospitalist
DX: J40 Bronchitis, not specified as acute or chronic (principal); J96.11 Chronic respiratory failure with hypoxia; J41.0 Simple chronic bronchitis; I82.593 Chronic embolism and thrombosis of other specified deep vein of lower extremity, bilateral; R91.1 Solitary pulmonary nodule
CPT/HCPCS: 99214

== ENCOUNTER → 2023-08-20 08:31 | Outpatient (BNVA) | payer OTHER, SELFPAY | PROVIDERS: PCP Internal Medicine; Visit Provider Hospitalist | DX: J41.0 Simple chronic bronchitis (principal); J96.11 Chronic respiratory failure with hypoxia; R91.1 Solitary pulmonary nodule; I82.593 Chronic embolism and thrombosis of other specified deep vein of lower extremity, bilateral | CPT/HCPCS: 99212 ==

== ENCOUNTER 2023-09-04 15:05 | Outpatient (REF) | payer OTHER, SELFPAY ==
--- NOTE | ~2023-09-04 | CT_ITS ---
EXAMINATION: CT CHEST WITHOUT CONTRAST CLINICAL INFORMATION: Solitary pulmonary nodule COMPARISON: Previous CTs, most recent, 01/21/2023. TECHNIQUE: Multidetector volumetric CT imaging of the chest was done. Axial MIP volume rendering provided. Sagittal and coronal reformatted images were obtained. This CT examination was performed using dose optimization techniques as appropriate, variously including the following: *Automated exposure control *Adjustment of mA and/or kV according to patient size (this includes techniques or standardized protocols for targeted exams where dose is matched to indication/reason for exam; i.e. 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 Clear lungs. LUNGS: Trachea and bronchi are patent. Redemonstration centrilobular emphysema,, biapical pleural thickening and scattered subpleural reticular changes. Bullous disease and multiple parenchymal cysts, largest measuring 1.6 mm in the left lower lobe, with unchanged posterior thickening/layering fluid, 5:411. Multiple unchanged nodules with calcifications including in the right lower lobe: 1.6 cm on 5:322, 9 mm, 5:319 and 1.1 cm, 5:350. 8mm in the left lower lobe, 5:392. 5 and 3 mm RUL noncalcified nodules on 5:199 and 5:255, respectively. MEDIASTINUM: Nonenlarged thyroid. Nonspecific mediastinal lymph nodes. No pathologic lymphadenopathy. Nonenlarged heart. No pericardial effusion. Atherosclerotic calcifications nonaneurysmal aorta. Nonenlarged pulmonary arteries. CORONARY ARTERY CALCIFICATION: Moderate. PLEURA: There is no pleural effusion. No pleural mass or thickening. AXILLA/CHEST WALL: No lymphadenopathy. Benign appearing bilateral breast calcifications. UPPER ABDOMEN: Unremarkable. OSSEOUS STRUCTURES: Unremarkable. CT/CT chest wo IV con IMPRESSION: Unchanged emphysema, chronic reticular markings, bullous and cystic changes. Multiple stable calcified and noncalcified pulmonary nodules.
== END 2023-09-04 15:06 | disposition home or self-care (01) ==
LOC: HO.CT 15:05
PROVIDERS: PCP Internal Medicine; Visit Provider Physician Assistant Medical
DX: R91.1 Solitary pulmonary nodule (principal)
CPT/HCPCS: 71250

== ENCOUNTER → 2024-01-29 12:15 | Outpatient (BNV) | payer OTHER, SELFPAY | PROVIDERS: PCP Internal Medicine; Visit Provider Radiology Diagnostic Radiology | DX: Z12.31 Encounter for screening mammogram for malignant neoplasm of breast (principal) | CPT/HCPCS: 77063; 77067 ==

== ENCOUNTER 2024-01-29 12:33 | Outpatient (REF) | payer OTHER, SELFPAY ==
--- NOTE | ~2024-01-29 | MM_ITS ---
EXAMINATION: MM SCREENING DIGITAL BREAST TOMOSYNTHESIS, BILATERAL CLINICAL INFORMATION: Screening. Asymptomatic. COMPARISON: Mammography: This study is compared with prior exams dating back to 2018. TECHNIQUE: Digital breast tomosynthesis is performed in both the craniocaudal and mediolateral oblique views along with computer-aided detection (CAD). Synthesized 2D images are generated from the tomosynthesis. FINDINGS: There are scattered areas of fibroglandular density (ACR BI-RADS breast composition Category b). In the 9:00 region of the left breast, at a middle depth, there is an asymmetry which warrants additional mammographic and targeted sonographic imaging. In the right breast, there are no significant masses, abnormal calcifications, or other abnormalities. Scattered, bilateral, benign calcifications are present. MM/MM tomosynthesis screening BI IMPRESSION: Asymmetry of the left breast warrants additional mammographic and targeted sonographic imaging. It is requested that skin markers in place on any prior surgical scars in the left breast for all the diagnostic mammographic images. No mammographic evidence of malignancy right breast. ASSESSMENT: BI-RADS BI-RADS 0 - Incomplete: Needs additional Imaging. RECOMMENDATION: 1. Additional views of the left. 2. Targeted ultrasound if warranted after review of the additional views. 3. Radiology department staff will contact the patient for additional imaging. Additional Imaging required This examination should not preclude the clinical evaluation of a suspicious palpable abnormality. This patient's information was entered into a reminder system with a target due date for their next mammogram.
== END 2024-01-29 12:34 | disposition home or self-care (01) ==
LOC: HO.MAMMO 12:33
PROVIDERS: PCP Internal Medicine; Visit Provider Internal Medicine
DX: Z12.31 Encounter for screening mammogram for malignant neoplasm of breast (principal)
CPT/HCPCS: 77063; 77067

== ENCOUNTER 2024-02-09 11:18 | Outpatient (AMB) | payer OTHER, SELFPAY ==
[2024-02-09 11:22] VITALS: BMI 24.0
--- NOTE | 2024-02-09 11:22 | MHC.OFFVIS ---
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 States this pain began about a year ago. She is on plavix. Patient uses a walker to ambulate. She gets inflamed veins when she stands and walks. Patient has diabetes. Patient is a non smoker. 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 Complaints include pain over varicosities, swelling of lower extremities, cramping, fatigue, and heaviness of the lower extremities. It has been affecting there daily activities including walking. It is noted more so in bilateral leg. Patient denies any previous venous surgery or injections. Patient denies any history of DVT/ PE. Patient denies any history of phlebitis. Trial of compression includes - [id number] They now present for vascular evaluation regarding their varicose veins. 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 Pulmonary fibrosis Chronic respiratory failure Pressure ulcer of sacral region, stage 2 DVT, bilateral lower limbs Fungal dermatitis High cholesterol Atherosclerotic cardiovascular disease HLD (hyperlipidemia) HTN (hypertension) T2DM (type 2 diabetes mellitus) COPD (chronic obstructive pulmonary disease) Pulmonary nodules Asthma Hyperlipidemia, unspecified Type 2 diabetes mellitus with unspecified complications Essential hypertension Angina pectoris Bursitis of right shoulder Surgical History History of bunionectomy History of total abdominal hysterectomy and bilateral salpingo-oophorectomy Hx of colonoscopy Family History Mother HTN (hypertension) Brother Lung cancer Daughter Breast cancer Maternal Aunt Breast cancer Daughter Eye cancer Social History Household Members: None Housing: Apartment Housing Other:: [facility] Are you a primary career guidance technician to a significant other at home: No Do 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 have 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) Alcohol intake: current Alcohol intake frequency: holidays/special occasions only Comment: PT SLEEPING Patient Tobacco Use Status: Former Tobacco user Second Hand Smoke Exposure: No Advance Directives Date on File: 08/27/20 service: No Current occupational status: retired Review of Systems Const Reports as per HPI ENT Reports no additional complaints Card Denies chest pain, Denies chest pain at rest and Denies chest pain with activity Resp Denies chest congestion and Denies cough GI Reports no additional complaints Musc Details: pain over varicosities, aching of lower extremities, swelling, cramping, heaviness and tiredness, itching Denies abnormal gait Skin/Breast Reports pruritus and Denies wounds Neuro Reports no additional complaints and Denies abnormal gait Psych Denies no additional complaints Physical Exam Vital Signs: BMI result Body Mass Index 24.0 Const General: cooperative, healthy appearing and comfortable Orientation/consciousness: oriented to person, oriented to place and oriented to time Neck Carotids: no bruits Chest Chest palpation & inspection: normal inspection of the chest and normal palpation of entire chest wall Resp Effort & Inspection: normal respiratory effort and able to speak in complete sentences Cardio Rate: regular rate Heart sounds: S1 normal heart sound present and S2 normal heart sound present Peripheral pulses: Peripheral pulses 2+ throughout GI Inspection: Yes normal to inspection Skin Other: +2 edema, large rope-like varicosities greater than 4 mm CEAP Classification C4 - skin color changes Ep - Etiology Primary As - superficial veins P - reflux General skin exam: dry skin Neuro General: oriented to person, oriented to place and oriented to time Extrem Right lower extremity: full ROM, normal capillary refill and edema Left lower extremity: full ROM, normal capillary refill and edema Psych Mental Status: mental status grossly normal Assessment & Plan Assessment & Plan (1) Varicose veins of right lower extremity with inflammation: Code(s): I83.11 - Varicose veins of right lower extremity with inflammation Category: Medical Plan: In short, the patient has evidence of venous insufficiency. I have discussed the pathophysiology with the patient. In addition I have provided informational material regarding venous disease to the patient. We have discussed conservative measures including compression, elevation, and exercise. I have also provided a handout regarding appropriate use of compression stockings and where to purchase good compression stockings as well. I have taken the liberty of ordering venous insufficiency testing with the patient. They will follow up with me after testing. The patient had an opportunity to ask questions regarding the treatment plan. All questions were answered. Imaging studies, laboratory studies and physical exam results were discussed and reviewed in detail. No major barriers to understanding were identified. The patient expressed understanding and agreement with the above treatment plan. The patient is aware they should contact our office by phone for worsening of the current condition or the appearance of new symptoms. Thank you for allowing me to participate in the vascular care of this patient. If you have any questions or concerns regarding the treatment for the above condition please do not hesitate to contact me. The office telephone contact is [phone]. This note is constructed using voice recognition software. While every effort has been made to ensure accuracy, janitorial manager errors may have been included. Thank you for allowing me to participate in the care of your patient. Yours sincerely, Rob Glover MD, FACS, R.P.V.I. Orders: Orders US venous duplex LE BI 1 Week I83.11 - Varicose veins of right lower extremity with inflammation Coding Level of Care Code Est Pt Level 4 (96944) Diagnoses Varicose veins of right lower extremity with inflammation I83.11
== END 2024-02-09 11:44 | disposition home or self-care (01) ==
PROVIDERS: PCP Internal Medicine; Visit Provider Surgery Vascular Surgery
DX: I83.11 Varicose veins of right lower extremity with inflammation (principal)
CPT/HCPCS: 99214

== ENCOUNTER → 2024-02-09 11:18 | Outpatient (BNVA) | payer OTHER, SELFPAY | PROVIDERS: PCP Internal Medicine; Visit Provider Surgery Vascular Surgery | DX: I83.11 Varicose veins of right lower extremity with inflammation (principal) | CPT/HCPCS: 99212 ==

== ENCOUNTER 2024-02-23 09:19 | Outpatient (REF) | payer OTHER, SELFPAY ==
[2024-02-23 12:05] LABS: Alanine Aminotransferase 10 U/L (0-31); Albumin Level 4.1 g/dL (3.5-5.0); Alkaline Phosphatase 85 U/L (39-117); Aspartate Amino Transferase 19 U/L (5-31); Bilirubin Direct 0.4 mg/dL (0.0-0.5); Bilirubin Total 1.2 mg/dL (0.0-1.0); Cholesterol 180 mg/dL (<200); HDL Cholesterol 59 mg/dL (>40); LDL Cholesterol Calculated 108 mg/dL (<100); Total Protein 7.3 g/dL (6.5-8.0); Triglycerides 67 mg/dL (<150)
[2024-02-23 12:25] LABS: Vitamin B12 577 pg/mL (200-900)
== END 2024-02-23 09:20 | disposition home or self-care (01) ==
LOC: HO.HHCL 09:19
PROVIDERS: Visit Provider Internal Medicine
DX: E78.2 Mixed hyperlipidemia (principal); E11.65 Type 2 diabetes mellitus with hyperglycemia; Z79.4 Long term (current) use of insulin
CPT/HCPCS: 36415; 80061; 80076; 82607

== ENCOUNTER 2024-02-25 10:16 | Outpatient (REF) | payer OTHER, SELFPAY ==
--- NOTE | ~2024-02-25 | US_ITS ---
EXAMINATION: US LOWER EXTREMITY VENOUS (REFLUX EXAM), BILATERAL CLINICAL INDICATION: Chronic venous insufficiency with lower extremity varicose veins with inflammation COMPARISON: None. TECHNIQUE: Color flow triplex imaging and compression Doppler was performed to evaluate both the deep and the superficial systems bilaterally. To evaluate the superficial system, the examination was performed in the upright position. Color-flow Doppler ultrasound and compression ultrasound were utilized. In addition, maneuvers were utilized to demonstrate reflux. FINDINGS: 1. DEEP VENOUS ULTRASOUND OF THE RIGHT LOWER EXTREMITY: Common Femoral Vein: Compressible, normal respiratory variation and augmented flow. Femoral Vein: Compressible, normal color flow and augmentation. Popliteal Vein: Compressible, normal augmentation. Deep Reflux: There is no evidence of reflux in the deep system in either the common femoral vein, superficial femoral or the popliteal vein. There is no evidence of a Nash's cyst. 2. SUPERFICIAL ULTRASOUND WITH DOPPLER OF RIGHT LOWER EXTREMITY: GREAT SAPHENOUS VEIN: Saphenofemoral Junction: 0.4 cm; Reflux: 0 ms Proximal Thigh: 0.4 cm; Reflux: 0 ms Mid Thigh: 0.3 cm; Reflux: 0 ms Above Knee: 0.2 cm; Reflux: 0 ms At Knee: 0.2 cm; Reflux: 0 ms Below Knee: 0.2 cm; Reflux: 0 ms Mid Calf: 0.2 cm; Reflux: 0 ms Ankle: 0.2 cm; Reflux: 0 ms DUPLICATED MEDIAL GREAT SAPHENOUS VEIN: Diameter: None imaged Reflux: NA DUPLICATED LATERAL GREAT SAPHENOUS VEIN: Diameter: None imaged Reflux: NA SMALL SAPHENOUS VEIN: Saphenopopliteal Junction: 0.3 cm; Reflux: 0 ms Proximal: 0.2 cm; Reflux: 0 ms Distal: 0.4 cm; Reflux: 0 ms VEIN OF GIACOMINI: Size: NA Reflux: NA PERFORATORS: Location: None significant Size: NA Reflux: NA VARICOSITIES: Location: None significant Size: NA Reflux: NA 3. DEEP VENOUS ULTRASOUND OF THE LEFT LOWER EXTREMITY: Common Femoral Vein: Compressible, normal respiratory variation and augmented flow. Femoral Vein: Compressible, normal color flow and augmentation. Popliteal Vein: Compressible, normal augmentation. Deep Reflux: There is no evidence of reflux in the deep system in either the common femoral vein, superficial femoral or the popliteal vein. There is no evidence of a Nash's cyst. 4. SUPERFICIAL ULTRASOUND WITH DOPPLER OF LEFT LOWER EXTREMITY: GREAT SAPHENOUS VEIN: Saphenofemoral Junction: 0.3 cm; Reflux: 0 ms Proximal Thigh: 0.3 cm; Reflux: 0 ms Mid Thigh: 0.3 cm; Reflux: 0 ms Above Knee: 0.2 cm; Reflux: 0 ms At Knee: 0.2 cm; Reflux: 0 ms Below Knee: 0.3 cm; Reflux: 3216 ms Mid Calf: 0.1 cm; Reflux: 0 ms Ankle: 0.1 cm; Reflux: 1456 ms DUPLICATED MEDIAL GREAT SAPHENOUS VEIN: Diameter: None imaged Reflux: NA DUPLICATED LATERAL GREAT SAPHENOUS VEIN: Diameter: None imaged Reflux: NA SMALL SAPHENOUS VEIN: Saphenopopliteal Junction: 0.6 cm; Reflux: 0 ms Mid: 0.3 cm; Reflux: 1660 ms Distal: 0.2 cm; Reflux: 0 ms VEIN OF GIACOMINI: Size: NA Reflux: NA PERFORATORS: Location: None significant Size: NA Reflux: NA VARICOSITIES: Location: Medial knee and proximal calf Size: 0.3 cm Reflux: None US/US venous duplex LE BI IMPRESSION: Right: No significant venous insufficiency or reflux in the great saphenous vein or small saphenous vein. No significant varicose veins. Left: Segmental areas of focal reflux in the great saphenous vein at the proximal calf and ankle and small saphenous vein in the mid calf. Varicose veins in the medial knee and proximal calf without significant reflux
== END 2024-02-25 10:17 | disposition home or self-care (01) ==
LOC: HO.US 10:16
PROVIDERS: Visit Provider Surgery Vascular Surgery
DX: I83.11 Varicose veins of right lower extremity with inflammation (principal)
CPT/HCPCS: 93970

== ENCOUNTER 2024-03-10 11:06 | Outpatient (REF) | payer OTHER, SELFPAY ==
[2024-03-10 14:02] LABS: Vitamin D 25-OH Total 39.5 ng/mL (>30)
== END 2024-03-10 11:07 | disposition home or self-care (01) ==
LOC: HO.HHCL 11:06
PROVIDERS: Visit Provider Internal Medicine
DX: E55.9 Vitamin D deficiency, unspecified (principal)
CPT/HCPCS: 36415; 82306

== ENCOUNTER 2024-03-15 14:37 | Outpatient (AMB) | payer OTHER, SELFPAY ==
[2024-03-15 14:37] VITALS: BMI 24.0
--- NOTE | 2024-03-15 14:37 | MHC.OFFVIS ---
Vital Signs 03/15/24 14:37 Height 5 ft 1 in Weight 127 lb BMI 24.0 Intake Visit Reasons: Follow Up 02/24 Intake Note: Follow up US 02/25/24, pt states bilateral LE pain is equal. Pt states she uses a homemade remedy for LE pain, a liquid. Consumer Credit Counselor Services: Consumer Credit Counselor Present (tristanian) Consumer Credit Counselor Name: omid [id number] Information Interpreted: clinical only Supervisor Network Control Operators: Supervisor Network Control Operators Present Allergies codeine [Codeine] Allergy (Mild, Verified 03/15/24 14:45) DIZZINESS, VOMITING insulin lispro [INSULIN LISPRO] Allergy (Unknown, Verified 03/15/24 14:45) NAUSEA & VOMITING oxycodone [OXYCODONE] Allergy (Unknown, Verified 03/15/24 14:45) NAUSEA & VOMITING HPI HPI Follow Up 02/24 : Details: Very pleasant 83-year-old female presents for swelling and discomfort of the lower extremities. She reports that her discomfort is more so bilateral posterior calves. She has had no interval changes. She has tried using compression but they have been extremely tight and difficult to wear due to her hands. She now presents for routine follow-up with venous insufficiency testing. [facility] Medical History Diverticulosis Vitamin D deficiency Chronic respiratory failure [id number] syndrome Pulmonary fibrosis Chronic respiratory failure Pressure ulcer of sacral region, stage 2 DVT, bilateral lower limbs Fungal dermatitis High cholesterol Atherosclerotic cardiovascular disease HLD (hyperlipidemia) HTN (hypertension) T2DM (type 2 diabetes mellitus) COPD (chronic obstructive pulmonary disease) Pulmonary nodules Asthma Hyperlipidemia, unspecified Type 2 diabetes mellitus with unspecified complications Essential hypertension Angina pectoris Bursitis of right shoulder Surgical History History of bunionectomy History of total abdominal hysterectomy and bilateral salpingo-oophorectomy Hx of colonoscopy Family History Mother HTN (hypertension) Brother Lung cancer Daughter Breast cancer Maternal Aunt Breast cancer Daughter Eye cancer Social History Household Members: None Housing: Apartment Housing Other:: [facility] Are you a primary day care attendant to a significant other at home: No Do 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 have 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) Alcohol intake: current Alcohol intake frequency: holidays/special occasions only Comment: PT SLEEPING Patient Tobacco Use Status: Former Tobacco user Second Hand Smoke Exposure: No Advance Directives Date on File: 08/27/20 service: No Current occupational status: retired Review of Systems Const All systems reviewed & are unremarkable except as noted in HPI and below Reports no additional complaints ENT Reports Normal hearing present Card Denies chest pain, Denies chest pain at rest, Denies chest pain with activity and Denies pedal edema Resp Denies cough GI Denies abdominal pain Musc Denies abnormal gait, Denies muscle cramps and Denies radiating pain into limb Skin/Breast Denies skin ulcer and Denies wounds Neuro Reports Normal hearing present and Denies abnormal gait Psych Reports no additional complaints Physical Exam Vital Signs: BMI result Body Mass Index 24.0 Const General: cooperative, healthy appearing and comfortable Orientation/consciousness: oriented to person, oriented to place and oriented to time HEENT Head: Yes normal to inspection Neck Neck: Yes normal visual inspection Carotids: no bruits Chest Chest palpation & inspection: normal inspection of the chest Resp Effort & Inspection: normal respiratory effort and able to speak in complete sentences Auscultation: clear to auscultation bilaterally, no crackles, no rales, no rhonchi and no wheezes Cardio Rate: regular rate Rhythm: regular rhythm Heart sounds: S1 normal heart sound present and S2 normal heart sound present Bruits: no carotid bruits Peripheral pulses: Peripheral pulses 2+ throughout GI Inspection: Yes normal to inspection Skin Wounds: no wounds Hair: normal Neuro General: oriented to person, oriented to place and oriented to time Cranial nerves: Yes CN's II-XII intact bilaterally and Yes Normal hearing present Cognition (Neuro): normal cognition Motor exam (neuro): 5/5 motor strength present throughout Extrem Other: venous exam: No significant superficial varicosities or spider telangiectasias, minimal edema General: No clubbing, No cyanosis and No edema Psych Appearance: grossly normal Mental Status: mental status grossly normal Speech and movement: Normal speech and movement present Results Reviewed Results Reviewed: Brief summary of venous insufficiency testing is as follows: right great saphenous vein: negative right small saphenous vein: negative right accessory vein: none present left great saphenous vein: negative left small saphenous vein: negative left accessory vein: none present Please note there is no evidence of any venous aneurysms or significant tortuosity Assessment & Plan Assessment & Plan (1) Varicose veins of right lower extremity with inflammation: Code(s): I83.11 - Varicose veins of right lower extremity with inflammation Category: Medical Plan: In short patient is negative for any significant venous insufficiency. She does have some mild varicosities which appeared to be more superficial spider telangiectasias. At the current time would recommend only conservative measures including compression elevation and exercise. I did give her instructions about where to purchase appropriate compression [id number]. This was given to the patient. She will follow up with us on an as-needed basis. Thank you for allowing us to assist in her care. Coding Level of Care Code Est Pt Level 4 (82822) Diagnoses Varicose veins of right lower extremity with inflammation I83.11
== END 2024-03-15 15:17 | disposition home or self-care (01) ==
PROVIDERS: PCP Internal Medicine; Visit Provider Surgery Vascular Surgery
DX: I83.11 Varicose veins of right lower extremity with inflammation (principal)
CPT/HCPCS: 99214

== ENCOUNTER → 2024-03-15 14:37 | Outpatient (BNVA) | payer OTHER, SELFPAY | PROVIDERS: PCP Internal Medicine; Visit Provider Surgery Vascular Surgery | DX: I83.11 Varicose veins of right lower extremity with inflammation (principal) | CPT/HCPCS: 99212 ==

== ENCOUNTER 2024-03-24 14:20 | Outpatient (REF) | payer OTHER, SELFPAY ==
--- NOTE | ~2024-03-24 | MM_ITS ---
EXAMINATION: MM DIAGNOSTIC DIGITAL BREAST TOMOSYNTHESIS, LEFT CLINICAL INFORMATION: Callback from screening for distortion in the inferior aspect left breast. Of note, patient had excisional biopsy previously in this region, and scar markers were placed for repeat views. COMPARISON: Mammography: 01/29/2024, 01/20/2023, 01/02/2022, 09/07/2027, dating back to 2016. TECHNIQUE: Digital breast tomosynthesis is performed in the following views: Full field 3-D digital left MLO view, full field 3-D digital left ML view, and 3-D spot compression left MLO view. Computer-aided diagnosis was used for this study. FINDINGS: The breasts are heterogeneously dense, which may obscure small masses (ACR BI-RADS breast composition Category c). The area of architectural distortion in the slightly inferior medial left breast correlates well with the scar marker and is consistent with postoperative scarring from surgical excisional biopsy in the past. There are a few scattered benign type calcifications and vascular calcifications. No persistent suspicious masses, new areas of architectural distortion, or suspicious calcifications are identified. No skin or axillary abnormality. MM/MM tomosynthesis added views L IMPRESSION: No findings suspicious for malignancy left breast. Benign findings related to prior excisional biopsy as detailed. Recommend the patient resume routine annual screening. ASSESSMENT: BI-RADS BI-RADS 2 - Benign Findings RECOMMENDATION: 1 year F/U Results were provided to the patient at time of visit by the technologist. This patient's information was entered into a reminder system with a target due date for their next mammogram. Electronically signed by: Josue Sainz MD 03/24/2024 03:05 PM EDT
== END 2024-03-24 14:21 | disposition home or self-care (01) ==
LOC: HO.MAMMO 14:20
PROVIDERS: PCP Internal Medicine; Visit Provider Internal Medicine
DX: N64.89 Other specified disorders of breast (principal)
CPT/HCPCS: 77061; 77065

== ENCOUNTER → 2024-03-24 14:30 | Outpatient (BNV) | payer OTHER, SELFPAY | PROVIDERS: PCP Internal Medicine; Visit Provider Radiology Diagnostic Radiology | DX: R92.8 Other abnormal and inconclusive findings on diagnostic imaging of breast (principal) | CPT/HCPCS: 77065; G0279 ==

== ENCOUNTER 2024-06-20 14:51 | Outpatient (REF) | payer OTHER, SELFPAY ==
[2024-06-20 16:37] LABS: Creatinine Urine 165.66 mg/dL; Microalbum/Creatinine Ratio Ur 8.4 ug/mg cr (<30)
[2024-06-20 16:42] LABS: Anion Gap 10 (12-20); Blood Urea Nitrogen 11 mg/dL (9-16); Calcium 10.2 mg/dL (8.4-10.2); Carbon Dioxide 31 mmol/L (22-29); Chloride 101 mmol/L (96-108); Estimated Glomerular Filt Rate > 60; Glucose Random 173 mg/dL (60-115); Sodium 138 mmol/L (135-145)
== END 2024-06-20 14:52 | disposition home or self-care (01) ==
LOC: HO.HHCL 14:51
PROVIDERS: Visit Provider Internal Medicine
DX: E11.65 Type 2 diabetes mellitus with hyperglycemia (principal); Z79.4 Long term (current) use of insulin
CPT/HCPCS: 36415; 80048; 82043; 82570

== ENCOUNTER 2024-06-28 11:10 | Outpatient (REF) | payer OTHER, SELFPAY ==
[2024-06-28 14:49] LABS: Microalbum/Creatinine Ratio Ur 27.5 ug/mg cr (<30)
[2024-06-28 14:59] LABS: Anion Gap 11 (12-20); Blood Urea Nitrogen 16 mg/dL (9-16); Calcium 9.4 mg/dL (8.4-10.2); Carbon Dioxide 27 mmol/L (22-29); Chloride 107 mmol/L (96-108); Estimated Glomerular Filt Rate > 60; Glucose Random 131 mg/dL (60-115); Sodium 141 mmol/L (135-145)
== END 2024-06-28 11:11 | disposition home or self-care (01) ==
LOC: HO.HHCL 11:10
PROVIDERS: Visit Provider Internal Medicine
DX: E11.65 Type 2 diabetes mellitus with hyperglycemia (principal); Z79.4 Long term (current) use of insulin
CPT/HCPCS: 36415; 80048; 82043; 82570

== ENCOUNTER 2024-11-25 10:00 | Outpatient (AMB) | payer OTHER, SELFPAY ==
--- NOTE | 2024-11-25 10:02 | MHC.OFFVIS ---
Vital Signs 11/25/24 10:05 Height 5 ft 1 in Weight 132 lb 4.438 oz BMI 25.0 BP 100/60 Blood Pressure Location Rt brachial Position Sitting Pulse 90 Pulse Source Pulse Oximeter Pulse Oximetry (%) 93 Oxygen Delivery Method Room Air Intake Visit Reasons: COPD-overdue F/U Allergies codeine [Codeine] Allergy (Mild, Verified 11/25/24 10:06) DIZZINESS, VOMITING insulin lispro [INSULIN LISPRO] Allergy (Unknown, Verified 11/25/24 10:06) NAUSEA & VOMITING oxycodone [OXYCODONE] Allergy (Unknown, Verified 11/25/24 10:06) NAUSEA & VOMITING HPI Comments Details: The patient is an 83-year-old woman with a known history of underlying pulmonary nodules. She was evaluated in the past by thoracic surgery at [facility]. She did undergo a PET scan and numerous CT scans demonstrating extensive nodular densities both lungs. She did not undergo any diagnostic interventions at that point. However, she was told that if the density grew that she would need to have a biopsy. she did not follow up further. Subsequently after that she did follow-up with Pulmonary which she had x-rays done at [facility]. Her x-rays did again demonstrate significant nodular opacities. No further testing was done per the patient. In the meantime she does have issues with cough and some shortness of breath. She denies any night sweats and denies any underlying fevers. I did review her CT scans from [facility] back in 2013. I also reviewed the x-rays from [facility]. At this point based on her underlying symptoms in the significant nodular densities and the abnormal chest x-rays the patient needs to have a repeat CT scan of the chest. 12/31/2020 the patient is here for pulmonary hospital follow-up visit. The patient was admitted to the hospital the end of July with severe COVID requiring a prolonged hospital stay due to the high oxygen requirements. The patient was able to be discharged to rehab now she is recuperating. Her oxygen requirement has decreased down to 2 L. she continues to use her respiratory medicine with good effect. While in the hospital she did have a DVT primarily involving her lower extremities. repeat CT a demonstrated no evidence of any pulmonary emboli. The patient was treated effectively for blood clots, although, she is no longer on anticoagulation. Just Plavix. At this point we have to make sure that she does not have any residual nonocclusive clots which will require additional anticoagulation. 04/02/2021 the patient is here for pulmonary follow-up visit. Overall the patient has been doing well. She continues use the oxygen with good response. She feels much improved from the severe COVID infection that she had. She has a hard time carrying her oxygen tanks with her multiple comorbidities and the fact that she uses a walker is hard for her to even put the oxygen tank on the walker. We did go for 6 minute walk test the patient did much better. she was able to ambulate for 6 minutes and after 4 minutes she did desaturate down to 88%. She was placed on 2 L nasal cannula improving her pulse ox to 96% with activity in the 98% on 2 L at rest. Patient will qualify in do very well with a conserving device. Therefore I will send the information over to her DME company, [facility] [place] in order to get her on a B cylinder with a pulse valve. She does have the albuterol rescue inhaler that she has not use. She also continues to be on a small dose of Eliquis. 06/07/2021 the patient is here for a pulmonary follow-up visit. The patient has been having difficulties with her oxygen supplementation. Initially we had sent her prescription for her to start small cylinders that she could use with activity and also the concentrator in the home. But she was reluctant to do so. However, she continues to have dyspnea on exertion moderate severity. The patient needs the oxygen. She needs better portability. She has a hard time caring the oxygen tanks and asked why she was reluctant to take it in the 1st place. I did have her go for 6 minute walk test. Patient did desaturate to 88% on room air. She still qualifies for the oxygen. Conserving device would be the better option for her. The patient is agreeable to starting the oxygen at this time. I will send a script to her local DME company in order to do so. I will also request a portable oxygen concentrator for her to start the process to continue providing her better portability outside of the home. Her last chest x-ray still demonstrates significant reticulonodular densities which is the result of the COVID 19 lung infection. The patient will have a repeat chest x-ray to assess the degree of interstitial lung disease. Will also request pulmonary function studies to see her lung capacity at this time. 08/15/2021 the patient is here for a pulmonary follow-up visit. The patient has been doing well. She did have pulmonary function studies today. They appear that she does have a restrictive ventilatory defect from the interstitial lung disease That was the results of the COVID-19. This has resulted in a decreased diffusing capacity. . However, clinically the patient is appears to be doing better she is using the oxygen continuously. I did recommend that she only use it with activity. We did remove the oxygen while she is in the office and she maintain a pulse ox in the 90s and that was reassuring. The patient does need better portability. The oxygen tanks are not able to give her in off portability outside of the home. She needs to get a portable oxygen concentrator in in order to be able to have the portability that she needs outside of the home and also be able to travel. I am requesting a battery operated portable oxygen concentrator for the patient through her [employer] company at this time. the patient does have a rescue inhaler that she rarely uses. She does not have any maintenance therapy. 03/06/2022 the patient is here for a pulmonary follow-up visit. Overall she is doing well. She continues use the oxygen with a pulse valve 2 L pulse with good effect. She initially was getting her oxygen through [employer]. Although, recently changed to reliable respiratory due to the contracture all issues between her insurance company in her previous DME company. The patient was in the process of trying to get a portable oxygen concentrator. Portable oxygen concentrator will provide her with better portability outside of the home specially with significant arthritis difficult carry the tanks and handle the tank valves. Therefore, will submit a prescription for portable oxygen concentrator to her new DME company in order for them to start the process. The patient did have a chest x-ray which I personally reviewed with her. She does have interstitial changes but appeared to be stable. She also has pulmonary nodules appreciated. The nodules were also visualized before. In view of the pulmonary nodules she will need to have a repeat CT scan of the chest. Her last CT scan was back in July 2020 and therefore will have get a CT scan prior to her next visit. 06/16/2022 the patient is here for pulmonary follow-up visit. Overall she is doing relatively well. She is still complaining that she has not been able to get a portable oxygen concentrator. The patient does have a large tank with her with a conserving valve. I did provide her with a small piece then there are tank that she can use with concern valve. I gave her prescription she will talk to the [employer] tomorrow. Please the be 7 the require better with better portability as she Wait for the portable oxygen concentrator. The patient did undergo a CT scan of the chest personally by me. She has stable pulmonary nodules. Overall, she has new nodules be followed. She has also cavitary disease and cystic lesions. Lot of it is related to her significant COVID infection with some residual findings. Immune not do will need to be followed closely. The patient continues use respiratory therapy with good effect. Will go ahead and follow-up in the springtime and will repeat 6 minutes walk test the time. I am hopeful that if she continues to improve hopefully we can wean her off the oxygen altogether. 10/13/2022 the patient is here for a pulmonary follow-up visit. Overall she is doing well. She continues use the oxygen. Unfortunately she was switched over to a [employer] company that does not provide portable oxygen concentrator is. Therefore she is using the small P 70s with good effect. She does have a planned trip scheduled to [place]. Before that she will need to leaks a portable oxygen concentrator from the [employer]. We did review her last CT scan of the chest was back in the summer of 2021 demonstrating some new pulmonary nodules in some that were cavitated. The patient has had significant weight loss. This has been non intentional. Therefore, plan to repeat the CT scan of the chest sometime in the summer of 2022 or sooner if she develops worsening symptoms. In part the patient is having significant tooth decay after having COVID. Is likely related. She was given protein shakes by her insurance company in order to try to maintain her weight and her caloric intake. 02/09/2023 the patient is here for a pulmonary follow-up visit. Overall the patient is doing well. She found that her portable oxygen concentrator. She does not like the battery life but it is reasonable. The patient does not need it all the time just with activity and therefore she can limit the battery lysed. She also needs a production machine shop supervisor for the car. The patient has a planned trip to [place] which I believe at this point is reasonable if she can wait till the fall when is less hot and the humid. The patient also underwent an imaging study demonstrating stability in the pulmonary fibrosis in the emphysema. The pulmonary nodules also appeared to be stable. She will need another repeat CT scan in 6-8 months because the size of the pulmonary nodules. 08/20/2023 the patient is here for a pulmonary follow-up visit. She had gone to [place] for about 2 months. Before that she was tested and she did not need oxygen which was reassuring. Ultimately when she got to [place] she got sick with COVID and was feeling malaise from that. Although I did not really affect her respiratory status which is reassuring. Subsequently after that she got sick again with mycoplasma lower respiratory infection. She was given antibiotics. And currently she is feeling better. She still has a cough and soreness of the throat but her overall breathing is better. She feels tired. Denies any fevers or chills. She is also having pain of her foot. She did have x-rays demonstrating some screws that she has had placed before. She is wondering if she needs have those screws taken out. She will talk to her primary care doctor. Explained to her that possibly is not related to the screws and she is having some neuropathy. The patient will start just a short course of antibiotics for her persistent cough to make sure that we treat the mycoplasma completely. She is also has pulmonary nodules and she is scheduled for CT scan sometime in August. Therefore will be able to assess any potential changes at that point. 11/25/2024 the patient is here for pulmonary follow-up visit. Overall she is doing well. The patient denies any worsening respiratory symptoms. She does have the oxygen supplementation. It has been affecting beneficial. Although she finds it a little heavy for her. She was asking about a orthotic/prosthetic practitioner device but right now through the [employer] she will be able to get anything orthotic/prosthetic practitioner. In meantime the patient continues her respiratory therapist prescribed. She did have a CT scan back in August 2023 which I personally reviewed with her. Her nodules appear stable. She does have emphysema she has not residual scarring likely from the COVID infection she had back in 2020. Overall the patient is doing well she will continue with the current respiratory therapy will follow-up in 6 months. 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 Pulmonary fibrosis Chronic respiratory failure Pressure ulcer of sacral region, stage 2 DVT, bilateral lower limbs Fungal dermatitis High cholesterol Atherosclerotic cardiovascular disease HLD (hyperlipidemia) HTN (hypertension) T2DM (type 2 diabetes mellitus) COPD (chronic obstructive pulmonary disease) Pulmonary nodules Asthma Hyperlipidemia, unspecified Type 2 diabetes mellitus with unspecified complications Essential hypertension Angina pectoris Bursitis of right shoulder Surgical History History of bunionectomy History of total abdominal hysterectomy and bilateral salpingo-oophorectomy Hx of colonoscopy Family History Mother HTN (hypertension) Brother Lung cancer Daughter Breast cancer Maternal Aunt Breast cancer Daughter Eye cancer Social History Household Members: None Housing: Apartment Housing Other:: [facility] Are you a primary rn patient care to a significant other at home: No Do 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 have 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 or other home services: Yes (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 manager) Alcohol intake: current Alcohol intake frequency: holidays/special occasions only Comment: PT SLEEPING Patient Tobacco Use Status: Former Tobacco user Second Hand Smoke Exposure: No Advance Directives Date on File: 08/27/20 service: No Current occupational status: retired Review of Systems Const Denies chills, Denies fatigue, Denies fever(s), Denies weight gain and Denies weight loss ENT Denies dizziness Card Denies chest pain, Denies leg edema, Denies lightheadedness, Denies palpitations, Denies dyspnea on exertion, Denies orthopnea and Denies other Resp Denies cough and Denies dyspnea on exertion GI Denies hematochezia and Denies change in stool character Musc Denies abnormal gait, Denies muscle weakness, Denies numbness, Denies radiating pain into limb and Denies tingling Neuro Denies abnormal gait, Denies dizziness, Denies numbness and Denies tingling Endo Denies fatigue and Denies palpitations Physical Exam Vital Signs: Last Vital Signs Pulse 90 11/25/24 10:05 BP 100/60 05/02/25 10:05 Pulse Ox 93 11/25/24 10:05 Oxygen Delivery Method Room Air 11/25/24 10:05 BMI result Body Mass Index 25.0 Const General: alert Eyes Pupils: Equal, round and reactive pupils present Neck Neck: Yes normal visual inspection, Yes full ROM and Yes no lymphadenopathy Chest Chest palpation & inspection: normal inspection of the chest Resp Effort & Inspection: normal respiratory effort Auscultation: no crackles and diminished lung sounds Cardio Rate: regular rate Rhythm: regular rhythm Heart sounds: S1 normal heart sound present and S2 normal heart sound present GI Palpation (GI): Soft to palpation and nontender Auscultation: normal bowel sounds Skin General skin exam: rashes and/or lesions noted Neuro Cranial nerves: Yes Equal, round and reactive pupils present Results Reviewed Results Reviewed: [address] [address] [address] Scan Report Signed Patient: Ana Varghese MR#: [id number] : 1940 Acct:[id number] Age/Sex: 82 / F ADM Date: 09/04/23 Loc: HO.CT Attending Dr: Varsha Busby PA-C Ordering Physician: Myles Busby MD Date of Service: 09/04/23 Procedure(s): CT chest wo IV con Accession Number(s): [id number] cc: Melinda Krishnan MD; Myles Busby MD~ EXAMINATION: CT CHEST WITHOUT CONTRAST CLINICAL INFORMATION: Solitary pulmonary nodule COMPARISON: Previous CTs, most recent, 01/21/2023. TECHNIQUE: Multidetector volumetric CT imaging of the chest was done. Axial MIP volume rendering provided. Sagittal and coronal reformatted images were obtained. This CT examination was performed using dose optimization techniques as appropriate, variously including the following: *Automated exposure control *Adjustment of mA and/or kV according to patient size (this includes techniques or standardized protocols for targeted exams where dose is matched to indication/reason for exam; i.e. extremities or head) *Use of iterative reconstruction technique DLP: 115 mGy-cm FINDINGS: SCRAPER BURRER: Aortic calcifications. Clear lungs. LUNGS: Trachea and bronchi are patent. Redemonstration centrilobular emphysema,, biapical pleural thickening and scattered subpleural reticular changes. Bullous disease and multiple parenchymal cysts, largest measuring 1.6 mm in the left lower lobe, with unchanged posterior thickening/layering fluid, 5:411. Multiple unchanged nodules with calcifications including in the right lower lobe: 1.6 cm on 5:322, 9 mm, 5:319 and 1.1 cm, 5:350. 8mm in the left lower lobe, 5:392. 5 and 3 mm RUL noncalcified nodules on 5:199 and 5:255, respectively. MEDIASTINUM: Nonenlarged thyroid. Nonspecific mediastinal lymph nodes. No pathologic lymphadenopathy. Nonenlarged heart. No pericardial effusion. Atherosclerotic calcifications nonaneurysmal aorta. Nonenlarged pulmonary arteries. CORONARY ARTERY CALCIFICATION: Moderate. PLEURA: There is no pleural effusion. No pleural mass or thickening. AXILLA/CHEST WALL: No lymphadenopathy. Benign appearing bilateral breast calcifications. UPPER ABDOMEN: Unremarkable. OSSEOUS STRUCTURES: Unremarkable. CT/CT chest wo IV con IMPRESSION: Unchanged emphysema, chronic reticular markings, bullous and cystic changes. Multiple stable calcified and noncalcified pulmonary nodules. Dictated By: Itzel Kirby MD Signed By: <Electronically signed by Itzel Kirby MD in OV> 09/08/23 1610 Assessment & Plan Assessment & Plan (1) Bronchitis: Code(s): J40 - Bronchitis, not specified as acute or chronic Category: Medical (2) Chronic respiratory failure: Code(s): J96.10 - Chronic respiratory failure, unspecified whether with hypoxia or hypercapnia Category: Medical Qualifiers: Respiratory failure complication: hypoxia Qualified Code(s): J96.11 - Chronic respiratory failure with hypoxia (3) COPD (chronic obstructive pulmonary disease): Code(s): J44.9 - Chronic obstructive pulmonary disease, unspecified Category: Medical Qualifiers: COPD type: chronic bronchitis Chronic bronchitis type: simple Qualified Code(s): J41.0 - Simple chronic bronchitis (4) DVT, bilateral lower limbs: Code(s): I82.403 - Acute embolism and thrombosis of unspecified deep veins of lower extremity, bilateral Category: Medical Qualifiers: Affected thrombotic vein of extremity: other lower extremity vein Chronicity: chronic Qualified Code(s): I82.593 - Chronic embolism and thrombosis of other specified deep vein of lower extremity, bilateral (5) Pulmonary nodule: Code(s): R91.1 - Solitary pulmonary nodule Category: Medical Plan Holding oxygen at this time FAUSTINO as needed OT evaluation follow-up 6 months Orders: Orders OT Evaluation and Treatment 11/25/24 M79.643 - Pain in unspecified hand Coding Level of Care Code Est Pt Level 4 (59149) Complex EM visit Add On G2211 Diagnoses Bronchitis J40 Chronic respiratory failure with hypoxia J96.11 Respiratory failure complication: hypoxia Simple chronic bronchitis J41.0 COPD type: chronic bronchitis Chronic bronchitis type: simple 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
[2024-11-25 10:05] VITALS: BP 100/60; PULSE 90; O2SAT 93; BMI 25.0
--- OUTSIDE RECORDS SUMMARY | 2024-11-25 10:58 | XMS_ITS | Encounter Summary ---
Author Organization [facility] Address [address] [place] [address] Care Team Providers Care Milk Hauler Name Role Phone Melinda Krishnan MD Primary Care Provide r Rosmery Quiles PharmD Unavailable [phone] Reason for Visit * Reason Onset Date Comments Appointment 08/13/2022 Patient came in on 06/18 and is tx planned to have ext with Oral Surgery. She would like to have her appt scheduled soon as she is travelling in October and is upset that she hasn't been scheduled yet. DR Encounter Details Date Type Department Care Team (Late st Contact Info) Description 08/13/2022 Telephone [facility] [address], [place] [id number] Leo Kong DMD [address], [place] [id number] Appointment (Patient came in on 06/18 and is tx planned to have ext with Oral Surgery. She would like to have her appt scheduled soon as she is travelling in October and is upset that she hasn't been scheduled yet. ) Social History Tobacco Use Types Packs/Day Years Used Date Smoking Tobacco: Never Assessed Comments Unknown Sex and Gender Information Value Date Recorded Sex Assigned at Female 05/26/2022 10:14 AM EDT Legal Sex Female 10:14 AM EDT Gender Identity Female 05/26/2022 10:14 AM EDT Sexual Orientation Choose not to disclose 2021 10:14 AM EDT documented as of this encounter Miscellaneous Notes * Telephone Encounter - Eileen Hogue - 08/13/2022 2:34 PM EST Patient came in on 06/18 and is tx planned to have ext with Oral Surgery. She would like to have her appt scheduled soon as she is travelling in October and is upset that she hasn't been scheduled yet.DR documented in this encounter Plan of Treatment Upcoming Encounters Date Type Department Care Team (Late st Contact Info) Description 12/02/2024 1:30 PM EDT Clinical Support [facility] [address] [place] [address] Aurora Cross, SUELLEN [address] [place] [address] 12/05/2024 2:30 PM EDT Office Visit [facility] [address] [place] [address] Hardeep Fontenot, GAVI [address] [place] [address] 01/09/2025 1:30 PM EDT Office Visit [facility] [address] [place] [address] Melinda Krishnan MD [address] [place] [address] 02/03/2025 1:30 PM EDT Telemedicine [facility] [address] [place] [address] Anjana Mendoza RN 05/22/2025 1:00 PM EDT Office Visit [facility] [address] [place] [address] Selma Green [address] [place] [address] documented as of this encounter Visit Diagnoses Not on filedocumented in this encounter Care Teams Milk Hauler Relationship Specialty Start Date End Date Melinda Krishnan MD [address] [place] [address] PCP - General Family Medicine 09/06/20 Rosmery Quiles, Raisa [address] [place] [id number] Pharmacist Internal Medicine 02/01/24 documented as of this encounter
--- OUTSIDE RECORDS SUMMARY | 2024-11-25 10:58 | XMS_ITS | Encounter Summary ---
Author Organization [employer] Address 75 [facility] 7t [place] [address] Care Team Providers Care Animal Keeper Name Role Phone Melinda Krishnan MD Primary Care Provide r Rosmery Quiles PharmD Unavailable [phone]- [phone] Reason for Visit * Reason Comments Med Refill Encounter Details Date Type Department Care Team (Late Contact Info) Description 10/13/2022 Refill [facility] CHC MED & PEDS [address] [place] [address] Julissa Camara MD [address] [place] [address] Social History Tobacco Use Types Packs/Day Years Used Date Smoking Tobacco: Never Assessed Comments Unknown Sex and Gender Information Value Date Recorded Sex Assigned at Female 05/26/2022 10:14 AM EDT Legal Sex Female 10:14 AM EDT Gender Identity Female 05/26/2022 10:14 AM EDT Sexual Orientation Choose not to disclose 2021 10:14 AM EDT COVID-19 Exposure Response Date Recorded In the last 10 days, have yo u been in contact with someone who was confirmed or suspected to have Coronavirus/COVID-19? No / Unsure 10/14/2022 2:41 PM EDT documented as of this encounter Plan of Treatment Upcoming Encounters Date Type Department Care Team ([facility] Contact Info) Description 12/02/2024 1:30 PM EDT Clinical Support [facility] DIABETES/NUTRITION [address] [place] [address] [place] [address] 12/05/2024 2:30 PM EDT Office Visit [facility] ADULT DENTAL [address] [place] [address] Hardeep Fontenot DMD [address] [place] [address] 01/09/2025 1:30 PM EDT Office Visit [facility] MEDICINE [address] [place] [address] Melinda Krishnan MD [address] [place] [address] 02/03/2025 1:30 PM EDT Telemedicine [address] [address] Anjana Mendoza RN 05/22/2025 1:00 PM EDT Office Visit [facility] ADULT DENTAL [address] [place] [address] Selma Green [address] [place] [address] documented as of this encounter Visit Diagnoses Not on filedocumented in this encounter Care Teams Animal Keeper Relationship Specialty Start Date End Date Melinda Krishnan MD [address] [place] [address] PCP - General Family Medicine 09/06/20 Rosmery Quiles, Raisa [address] [place] [address] Pharmacist Internal Medicine 02/01/24 documented as of this encounter
--- OUTSIDE RECORDS SUMMARY | 2024-11-25 10:58 | XMS_ITS | Encounter Summary ---
Author Organization [employer] Address 75 [facility] 7t [place] [address] Care Team Providers Care Certified Genetic Counselor Name Role Phone Melinda Krishnan MD Primary Care Provide r Rosmery Quiles PharmD Unavailable [phone]- [phone] Reason for Visit * Reason Onset Date Comments Durable Medical Equipment 12/25/2023 Encounter Details Date Type Department Care Team ([facility] st Contact Info) Description 12/25/2023 Telephone [facility] MEDICINE [address] [place], [place] [phone] Melinda Krishnan MD [address] [place], [place] [phone] Durable Medical Equipment Social History Tobacco Use Types Packs/Day Years Used Date Smoking Tobacco: Never Passive Smoke Exposure: Never Smokeless Tobacco: Never Alcohol Use Standard Drinks/Week Comments Never 0 (1 standard drink = 0.6 oz pur e alcohol) Depression Answer Date Recorded Patient Health Questionnaire-9 Score 0 11/12/2022 Housing Stability Answer Date Recorded What is your housing situation today? I have anupama vann 05/11/[address] you li ve. Do you have problems with any of the following? None of the above 05/11/2023 Food Insecurity Answer Date Recorded Within the past 12 months, y ou worried that your food would run out before you got money to buy more: Never True 05/11/2023 Within the past 12 months,th e food you bought just didn't last and you didn't have enough money to get more: Never True Transportation Answer Date Recorded In the past 12 months, has l ack of transportation kept you from medical appts, meetings, work or from getting things needed for daily living? No 05/11/2023 Utilities Answer Date Recorded In the past 12 months, has t he electric, gas, oil or water company threatened to shut off services in your home? No 05/11/2023 Depression Answer Date Recorded Patient Health Questionnaire-2 Score 0 11/12/2022 Comments Unknown Sex and Gender Information Value Date Recorded Sex Assigned at Female 05/26/2022 10:14 AM EDT Legal Sex Female 10:14 AM EDT Gender Identity Female 05/26/2022 10:14 AM EDT Sexual Orientation Choose not to disclose 2021 10:14 AM EDT documented as of this encounter Miscellaneous Notes * Telephone Encounter - Kathy Rivero RN - 12/29/2023 9:49 AM EDT Please inform what dx to use and please addend last note to reflect need. Thank you Tc from [facility] is requesting an rx for a rollator with seat to be faxed to [phone]. * Telephone Encounter - Sheryl Nolasco - 12/25/2023 2:48 PM EDT Tc from [facility] is requesting an rx for a rollator with seat to be faxed to [phone]. documented in this encounter Plan of Treatment Upcoming Encounters Date Type Department Care Team (Late st Contact Info) Description 12/02/2024 1:30 PM EDT Clinical Support [facility] DIABETES/NUTRITION [address] [place] [address] [place] [address] 12/05/2024 2:30 PM EDT Office Visit [facility] ADULT DENTAL [address] [place] [address] Hardeep Fontenot DMD [address] [place] [address] 01/09/2025 1:30 PM EDT Office Visit [facility] MEDICINE [address] [place] [address] Melinda Krishnan MD [address] [place] [address] 02/03/2025 1:30 PM EDT Telemedicine [facility] MEDICINE [address] [place] [address] Anjana Mendoza, RN 05/22/2025 1:00 PM EDT Office Visit [facility] ADULT DENTAL [address] [place] [address] Selma Green [address] [place] [address] documented as of this encounter Visit Diagnoses Not on filedocumented in this encounter Additional Health Concerns Assessment Noted Time PHQ-9 Depression Total Score: 0 11/13/19 23 2:46 PM EDT documented as of this encounter Care Teams Certified Genetic Counselor Relationship Specialty Start Date End Date Melinda Krishnan MD [address] [place] [address] PCP - General Family Medicine 09/06/20 Rosmery Quiles, HopeD [address] [place] [address] Pharmacist Internal Medicine 02/01/24 documented as of this encounter
--- OUTSIDE RECORDS SUMMARY | 2024-11-25 10:58 | XMS_ITS | Encounter Summary ---
Author Organization [employer] [facility] Address 75 [facility] 7t [place] [address] Care Team Providers Care Drink Box Mechanic Name Role Phone Melinda Krishnan MD Primary Care Provide r Rosmery Quiles PharmD Unavailable [phone]- [phone] Encounter Details Date Type Department Care Team (Latest Contact Info) Description 07/17/2021 Abstract [facility] CONVERSIONS Dental, Provider, DDS Social History Tobacco Use Types Packs/Day Years Used Date Smoking Tobacco: Never Assessed Comments Unknown Sex and Gender Information Value Date Recorded Sex Assigned at Female 05/26/2022 10:14 AM EDT Legal Sex Female 10:14 AM EDT Gender Identity Female 05/26/2022 10:14 AM EDT Sexual Orientation Choose not to disclose 2021 10:14 AM EDT documented as of this encounter Plan of Treatment Upcoming Encounters Date Type Department Care Team (Late st Contact Info) Description 12/02/2024 1:30 PM EDT Clinical Support [facility] DIABETES/NUTRITION [address] [place] [address] Aurora Cross, SUELLEN [address] [place] [address] 12/05/2024 2:30 PM EDT Office Visit [facility] ADULT DENTAL [address] [place] [address] Hardeep Fontenot, GAVI [address] [place] [address] 01/09/2025 1:30 PM EDT Office Visit [facility] MEDICINE [address] [place] [address] Melinda Krishnan MD [address] [place] [address] 02/03/2025 1:30 PM EDT Telemedicine [facility] MEDICINE [address] [place] [address] Anjana Mendoza RN 05/22/2025 1:00 PM EDT Office Visit [facility] ADULT DENTAL [address] [place] [address] Selma Green [address] [place] [address] documented as of this encounter Visit Diagnoses Not on filedocumented in this encounter Care Teams Drink Box Mechanic Relationship Specialty Start Date End Date Melinda Krishnan MD [address] [place] [address] PCP - General Family Medicine 09/06/20 Rosmery Quiles, HopeD [address] [place] [address] Pharmacist Internal Medicine 02/01/24 documented as of this encounter
--- OUTSIDE RECORDS SUMMARY | 2024-11-25 10:58 | XMS_ITS | Encounter Summary ---
Author Organization [employer] Address 75 [facility] 7t [place] [address] Care Team Providers Care Cigarette Tester Name Role Phone Melinda Krishnan MD Primary Care Provide r Rosmery Quiles PharmD Unavailable [phone]- [phone] Reason for Visit * Reason Onset Date Comments Appointment Request 07/11/2024 Encounter Details Date Type Department Care Team ([facility] st Contact Info) Description 07/11/2024 Telephone [facility] MEDICINE [address] [place], [place] [phone] Melinda Krishnan MD [address] [place] [address] Appointment Request Social History Tobacco Use Types Packs/Day Years Used Date Smoking Tobacco: Never Passive Smoke Exposure: Never Smokeless Tobacco: Never Alcohol Use Standard Drinks/Week Comments Never 0 (1 standard drink = 0.6 oz pur e alcohol) Alcohol Answer Date Recorded Frequency of Alcohol Consumption Not on file 03/16/2024 Average Number of Drinks Not on file 024 Frequency of Binge Drinking Not on file 02/25 Score 0 03/16/2024 Depression Answer Date Recorded Patient Health Questionnaire-9 Score 9 03/16/2024 Patient Health Questionnaire-9 Score 9 03/16/2024 Last PHQ-9: Questionnaire Data Not on file 0 03/16/2024 Housing Stability Answer Date Recorded What is [...] the past 12 months, has t he [employer], gas, oil or water [employer] threatened to shut off services in your home? No 05/11/2023 Depression Answer Date Recorded Patient Health Questionnaire-2 Score 3 03/16/2024 Comments Unknown Sex and Gender Information Value Date Recorded Sex Assigned at Female 05/26/2022 10:14 AM EDT Legal Sex Female 10:14 AM EDT Gender Identity Female 05/26/2022 10:14 AM EDT Sexual Orientation Choose not to disclose 2021 10:14 AM EDT documented as of this encounter Miscellaneous Notes * Telephone Encounter - Luis Manuel Shaw - 07/11/2024 8:25 AM EST Tc from pt requesting to r/s appt for 07/11. Contact pt daughter to r/s at [phone] documented in this encounter Plan of Treatment Upcoming Encounters Date Type Department Care Team (Late st Contact Info) Description 12/02/2024 1:30 PM EDT Clinical Support [facility] DIABETES/NUTRITION [address] [place] [address] [address] Cross, SUELLEN [address] [place] [address] 12/05/2024 2:30 PM EDT Office Visit [facility] ADULT DENTAL [address] [place] [address] Hardeep Fontenot, GAVI [address] [place] [address] 01/09/2025 1:30 PM EDT Office Visit [facility] MEDICINE [address] [place], [place] [phone] Melinda Krishnan MD [address] [place] [address] 02/03/2025 1:30 PM EDT Telemedicine [facility] MEDICINE [address] [place] [address] Anjana Mendoza RN 05/22/2025 1:00 PM EDT Office Visit [facility] ADULT DENTAL [address] [place] [address] Selma [address] [place] [address] documented as of this encounter Goals Goal Patient Goal Type Associated Problems Recent Progress Patient-Stated? Author Hemoglobin A1c < 8 Result Component 7.7( 2:01 PM EST) No Danielle Sharma Record your blood sugar as directed Result Component No Danielle Sharma documented as of this encounter Visit Diagnoses Not on filedocumented in this encounter Additional Health Concerns Assessment Noted Time PHQ-9 Depression Total Score: 9 03/16/20 24 3:28 PM EDT documented as of this encounter Care Teams Cigarette Tester Relationship Specialty Start Date End Date Melinda Krishnan MD [address] [place] [address] PCP - General Family Medicine 09/06/20 Rosmery Quiles, HopeD [address] [place] [address] [phone] Pharmacist Internal Medicine 02/01/24 documented as of this encounter
--- OUTSIDE RECORDS SUMMARY | 2024-11-25 10:58 | XMS_ITS | Encounter Summary ---
Author Organization [employer] Address 75 [facility] 7t [place] [address] Care Team Providers Care Newspaper Peddler Name Role Phone Melinda Krishnan MD Primary Care Provide r Rosmery Quiles PharmD Unavailable [phone]- [phone] Reason for Visit * Reason Onset Date Comments Appointment 10/17/2022 Encounter Details Date Type Department Care Team (Late st Contact Info) Description 10/17/2022 Telephone [facility] ADULT DENTAL [address] [place] [address] Arnaldo To DMD Appointment Social History Tobacco Use Types Packs/Day Years Used Date Smoking Tobacco: Never Smokeless Tobacco: Never Comments Unknown Sex and Gender Information Value [...] PM EDT documented as of this encounter Miscellaneous Notes * Telephone Encounter - Eileen Hogue - 10/17/2022 12:52 PM EDT Latrell missed appt yesterday with Oral Surgery because her daughter had forgotten about. Anxious to get ext done to have new partials done. Would like to reschedule Oral Surgery appt documented in this encounter Plan of Treatment Upcoming Encounters Date Type Department Care Team (Late st Contact Info) Description 12/02/2024 1:30 PM EDT Clinical Support [facility] DIABETES/NUTRITION [address] [place] [address] [address], [address] [place] [address] 12/05/2024 2:30 PM EDT Office Visit [facility] ADULT DENTAL [address] [place] [address] Hardeep Fontenot, DMD [address] [place] [address] 01/09/2025 1:30 PM EDT Office Visit [facility] MEDICINE [address] [place] [address] Melinda Krishnan MD [address] [place] [address] 02/03/2025 1:30 PM EDT Telemedicine [facility] MEDICINE [address] [place] [address] Anjana Mendoza, NARA 05/22/2025 1:00 PM EDT Office Visit [facility] ADULT DENTAL [address] [place] [address] Norma, Selma [address] [place] [address] documented as of this encounter Visit Diagnoses Not on filedocumented in this encounter Care Teams Newspaper Peddler Relationship Specialty Start Date End Date Melinda Krishnan MD [address] [place] [address] PCP - General Family Medicine 09/06/20 Rosmery Quiles, Raisa [address] [place] [address] Pharmacist Internal Medicine 02/01/24 documented as of this encounter
--- OUTSIDE RECORDS SUMMARY | 2024-11-25 10:58 | XMS_ITS | Encounter Summary ---
Author Organization [employer] Address 75 [facility] 7t [place] [address] Care Team Providers Care Ritual Circumciser Name Role Phone Melinda Krishnan MD Primary Care Provide r Rosmery Quiles PharmD Unavailable [phone]- [phone] Reason for Visit * Reason Onset Date Comments Med Refill 07/18/2024 Encounter Details Date Type Department Care Team ([facility] st Contact Info) Description 07/18/2024 Telephone [facility] MEDICINE [address] [place] [address] Melinda Krishnan MD [address] [place] [address] Med Refill Social History Tobacco Use Types Packs/Day Years [...] the past 12 months, has t he [employer], gas, oil or water company threatened to [...] encounter Miscellaneous Notes * Telephone Encounter - Wolf Sibley - 07/18/2024 2:29 PM EST TC from pt requesting medication refill. Medications needing refill : Trulicity 4.5 MG/0.5ML solution auto-injector To be sent to: [facility] - [place], [place] - [address] [place] [address] documented in this encounter Plan of Treatment Upcoming Encounters Date Type Department Care Team (Late st Contact Info) Description 12/02/2024 1:30 PM EDT Clinical Support [facility] DIABETES/NUTRITION [address] [place] [address] [address] Cross, SUELLEN [address] [place] [address] 12/05/2024 2:30 PM EDT Office Visit [facility] ADULT DENTAL [address] [place] [address] Hardeep Fontenot, GAVI [address] [place] [address] 01/09/2025 1:30 PM EDT Office Visit [facility] MEDICINE [address] [place] [address] Melinda Krishnan MD [address] [place] [address] 02/03/2025 1:30 PM EDT Telemedicine [facility] MEDICINE [address] [place] [address] Anjana Mendoza, NARA 05/22/2025 1:00 PM EDT Office Visit [facility] ADULT DENTAL [address] [place] [address] Selma Green [address] [place] [address] documented as of this encounter Goals Goal [...] documented as of this encounter Care Teams Ritual Circumciser Relationship Specialty Start Date End Date Melinda Krishnan MD [address] [place] [address] PCP - General Family Medicine 09/06/20 Rosmery Quiles, HopeD [address] [place] [address] Pharmacist Internal Medicine 02/01/24 documented as of this encounter
--- OUTSIDE RECORDS SUMMARY | 2024-11-25 10:58 | XMS_ITS | Encounter Summary ---
Author Organization [employer] Address 75 [facility] 7t [place] [address] Care Team Providers Care Brineyard Supervisor Name Role Phone Melinda Krishnan MD Primary Care Provide r Rosmery Quiles PharmD Unavailable [phone]- [phone] Reason for Visit * Reason Onset Date Comments Paperwork/Forms 10/15/2022 Encounter Details Date Type Department Care Team (Late st Contact Info) Description 10/15/2022 Telephone [facility] MEDICINE [address] [place] [address] Melinda Krishnan MD [address] [place] [address] Paperwork/Forms Social History Tobacco Use Types Packs/Day Years [...] encounter Miscellaneous Notes * Telephone Encounter - Elisa Felipe - 10/15/2022 1:27 PM EDT TC from Katia Daughter of pt stated pt need a PA for Lidocaine 5% patches. PCP DR. Villa documented in this encounter Plan of Treatment Upcoming Encounters Date Type Department Care Team (Late st Contact Info) Description 12/02/2024 1:30 PM EDT Clinical Support [facility] DIABETES/NUTRITION [address] [place] [address] [address] Cross, SUELLEN [address] [place] [address] 12/05/2024 2:30 PM EDT Office Visit [facility] ADULT DENTAL [address] [place] [address] Hardeep Fontenot, GAVI [address] [place] [address] 01/09/2025 1:30 PM EDT Office Visit [facility] MEDICINE [address] [place] [address] Melinda Krishnan MD [address] [place] [address] 02/03/2025 1:30 PM EDT Telemedicine [facility] MEDICINE [address] [place] [address] Anjana Mendoza, NARA 05/22/2025 1:00 PM EDT Office Visit [facility] ADULT DENTAL [address] [place] [address] Selma Green [address] [place] [address] documented as of this encounter Visit Diagnoses Not on filedocumented in this encounter Care Teams Brineyard Supervisor Relationship Specialty Start Date End Date Melinda Krishnan MD [address] [place] [address] PCP - General Family Medicine 09/06/20 Rosmery Quiles, HopeD [address] [place] [phone] Pharmacist Internal Medicine 02/01/24 documented as of this encounter
--- OUTSIDE RECORDS SUMMARY | 2024-11-25 10:58 | XMS_ITS | Encounter Summary ---
Author Organization [employer] Address 75 [facility] 7t [place] [address] Care Team Providers Care Irrigation Equipment Remover Name Role Phone Melinda Krishnan MD Primary Care Provide r Rosmery Quiles PharmD Unavailable [phone] Encounter Details Date Type Department Care Team (Late st Contact Info) Description 08/15/2022 Orders Only [facility] MEDICINE [address] [place] [address] Silvia Fuentes LPN Social History Tobacco Use Types Packs/Day Years [...] Encounters Date Type Department Care Team (Late Contact Info) Description 12/02/2024 1:30 PM EDT Clinical Support [facility] DIABETES/NUTRITION [address] [place] [address] [address], [address] [place] [address] 12/05/2024 2:30 PM EDT Office Visit [facility] ADULT DENTAL [address] [place] [address] Hardeep Fontenot, GAVI [address] [place] [address] 01/09/2025 1:30 PM EDT Office Visit [facility] MEDICINE [address] [place] [address] Melinda Krishnan MD [address] [place] [address] 02/03/2025 1:30 PM EDT Telemedicine [facility] MEDICINE [address] [place] [address] Anjana Mendoza RN 05/22/2025 1:00 PM EDT Office Visit [facility] ADULT DENTAL [address] [place] [address] Selma Green [address] [place] [address] documented as of this encounter Visit Diagnoses Not on filedocumented in this encounter Care Teams Irrigation Equipment Remover Relationship Specialty Start Date End Date Melinda Krishnan MD [address] [place] [address] PCP - General Family Medicine 09/06/20 Rosmery Quiles, HopeD [address] [place] [address] [phone] Pharmacist Internal Medicine 02/01/24 documented as of this encounter
--- OUTSIDE RECORDS SUMMARY | 2024-11-25 10:58 | XMS_ITS | Encounter Summary ---
Author Organization [employer] Address [address] [facility] 7t [place] [address] Care Team Providers Care Skin Fitter Name Role Phone Melinda Krishnan MD Primary Care Provide r Rosmery Quiles PharmD Unavailable [phone]- [phone] Reason for Visit * Reason Onset Date Comments Appointment 11/05/2022 Encounter Details Date Type Department Care Team (Late st Contact Info) Description 11/05/2022 Telephone [facility] ADULT DENTAL [address] [place] [address] Arnaldo To DMD Appointment Social History Tobacco [...] * Telephone Encounter - Eileen Hogue - 11/05/2022 9:33 AM EDT Patient looking to reschedule oral surgery appt. She stated she received a call to reschedule but when I look at communication history, there were calls for medical or pharmacy unless I am missing something. She stated she was called to reschedule DR documented in this encounter Plan of Treatment Upcoming Encounters Date Type Department Care Team (Late st Contact Info) Description 12/02/2024 1:30 PM EDT Clinical Support [facility] DIABETES/NUTRITION [address] [place] [address] [address], [address] [place] [address] 12/05/2024 2:30 PM EDT Office Visit [facility] ADULT DENTAL [address] [place] [address] Hardeep Fontenot, DMD [address] [place] [address] 01/09/2025 1:30 PM EDT Office Visit [facility] MEDICINE [address] [place] [address] Melinda Krishnan MD [address] [place] [address] 02/03/2025 1:30 PM EDT Telemedicine [facility] MEDICINE [address] [place] [address] Anjana Mendoza, NARA 05/22/2025 1:00 PM EDT Office Visit [facility] ADULT DENTAL [address] [place] [address] NormaSelma [address] [place] [address] documented as of this encounter Visit Diagnoses Not on filedocumented in this encounter Care Teams Skin Fitter Relationship Specialty Start Date End Date Melinda Krishnan MD [address] [place] [address] PCP - General Family Medicine 09/06/20 Rosmery Quiles, HopeD [address] [place] [phone] Pharmacist Internal Medicine 02/01/24 documented as of this encounter
--- OUTSIDE RECORDS SUMMARY | 2024-11-25 10:59 | XMS_ITS | Encounter Summary ---
Author Organization [employer] Address [address] [facility] 7t [place] [address] Care Team Providers Care Construction Secretary Name Role Phone Melinda Krishnan MD Primary Care Provide r Rosmery Quiles PharmD Unavailable [phone]- [phone] Encounter Details Date Type Department Care Team (Latest Contact Info) Description 02/23/2019 Abstract [facility] CONVERSIONS Dental, Provider, DDS Social History Tobacco [...] Description 12/02/2024 1:30 PM EDT Clinical Support [facility] DIABETES/NUTRITION [address] [place] [address] Aurora Cross, SUELLEN [address] [place] [address] 12/05/2024 2:30 PM EDT Office Visit [facility] ADULT DENTAL [address] [place] [address] Hardeep Fontenot, GAVI 230 [place] [address] 01/09/2025 1:30 PM EDT Office Visit [facility] MEDICINE [address] [place] [address] Melinda Krishnan MD 230 [place] [address] 02/03/2025 1:30 PM EDT Telemedicine [facility] MEDICINE [address] [place] [address] Anjana Mendoza RN 05/22/2025 1:00 PM EDT Office Visit [facility] ADULT DENTAL [address] [place] [address] Selma Green 230 [place] [address] documented as of this encounter Visit Diagnoses Not on filedocumented in this encounter Care Teams Construction Secretary Relationship Specialty Start Date End Date Melinda Krishnan MD [address] [place] [address] PCP - General Family Medicine 09/06/20 Rosmery Quiles, HopeD [address] [place] [address] [phone] Pharmacist Internal Medicine 02/01/24 documented as of this encounter
--- OUTSIDE RECORDS SUMMARY | 2024-11-25 10:59 | XMS_ITS | Encounter Summary ---
Author Organization [employer] Address 75 [facility] 7t [place] [address] Care Team Providers Care Parts Finisher Name Role Phone Melinda Krishnan MD Primary Care Provide r Rosmery Quiles PharmD Unavailable [phone]- [phone] Reason for Visit * Reason Comments Med Refill Encounter Details Date Type Department Care Team (Late st Contact Info) Description 07/09/2023 Refill [facility] MEDICINE [address] [place] [address] Jimena Dutton, 230 [place] [address] Seborrheic dermatitis of scalp Social History Tobacco Use Types Packs/Day Years [...] Description 12/02/2024 1:30 PM EDT Clinical Support [facility] DIABETES/NUTRITION [address] [place] [address] [place] [address] 12/05/2024 2:30 PM EDT Office Visit [facility] ADULT DENTAL [address] [place] [address] Hardeep Fontenot, GAVI [address] [place] [address] 01/09/2025 1:30 PM EDT Office Visit [facility] MEDICINE [address] [place] [address] Melinda Krishnan MD 230 [place] [address] 02/03/2025 1:30 PM EDT Telemedicine [facility] MEDICINE [address] [place] [address] Anjana Mendoza RN 05/22/2025 1:00 PM EDT Office Visit [facility] ADULT DENTAL [address] [place] [address] Selma Green [address] [place] [address] documented as of this encounter Visit Diagnoses Diagnosis Seborrheic dermatitis of scalp Other seborrheic dermatitis documented in this encounter Additional Health Concerns Assessment Noted Time PHQ-9 Depression Total Score: 0 11/13/19 23 2:46 PM EDT documented as of this encounter Care Teams Parts Finisher Relationship Specialty Start Date End Date Melinda Krishnan MD 230 [place] [address] PCP - General Family Medicine 09/06/20 Rosmery Quiles, HopeD 230 [place] [address] Pharmacist Internal Medicine 02/01/24 documented as of this encounter
--- OUTSIDE RECORDS SUMMARY | 2024-11-25 10:59 | XMS_ITS | Clinical Summary ---
Author Organization [facility] Address [address] [place] [address] Care Team Providers Care Industrial Chemist Name Role Phone Melinda Duff MD Primary Care Provide r Unavailable Allergies Active Allergy Reactions Severity Noted Date Comments Codeine Nausea and Vomiting 12/16/2016 Insulin Lispro Nausea and Vomiting 04/21/2019 Oxycodone Nausea and Vomiting 04/21/2019 Medications Medication Sig Dispensed Refills Start Date End Date Status ramipril (ALTACE) 10 MG capsule 10 mg. 0 Active diphenhydrAMINE (BENADRYL ALLERGY) 25 MG tablet 25 mg. 0 12/16/2016 Active Calcium Carb-Cholecalciferol (CALTRATE 600+D) 600-800 MG-UNIT Tab TAKE 1 TABLET DAILY DIRECTED. 0 Active clotrimazole (LOTRIMIN) 1 % cream APPLY 2-3 TIMES DAILY TO AFFECTED AREA(S). 0 Active fluticasone 50 MCG/ACT nasal spray USE 1 SPRAY IN EACH NOSTRIL ONCE DAILY. 0 Active sitagliptan (JANUVIA) 100 MG tablet 100 mg. 0 Active insulin glargine (LANTUS) 100 UNIT/ML injection 100 Units/mL. 0 Active atorvastatin (LIPITOR) 80 MG tablet 80 mg. 0 Active loratadine (CLARITIN) 10 MG tablet 10 mg. 0 Active acetaminophen (MAPAP) 500 MG tablet 500 mg. 0 Active metformin (GLUCOPHAGE) 1000 MG tablet 1,000 mg. 0 Active metoprolol (TOPROL-XL) 50 MG 24 hr tablet 50 mg. 0 Active clopidogrel (PLAVIX) 75 MG tablet 75 mg. 0 Active repaglinide (PRANDIN) 2 MG tablet 2 mg. 0 Active ALBUTEROL SULFATE (PROAIR HFA) 108 (90 BASE) MCG/ACT Aero SolnIndications:Exac erbation of asthma, unspecified asthma severity, unspecified whether persistent,Asthma, unspecified asthma severity, unspecified whether complicated, unspecified whether persistent,Multiple pulmonary nodules,History of tobacco use INHALE 2 PUFFS EVERY 4-6 HOURS NEEDED. 0 Active ranitidine (ZANTAC) 150 MG tablet 150 mg. 0 Active senna (SENOKOT) 8.6 MG tablet 8.6 mg. 0 Active trazodone (DESYREL) 50 MG tablet 50 mg. 0 Active triamcinolone (KENALOG) 0.1 % cream APPLY AND RUB IN A THIN FILM TO AFFECTED AREAS TWICE DAILY.(AM AND PM). 0 Active Cholecalciferol (VITAMIN D3) 67556 UNITS Cap 50,000 Units. 0 Active ezetimibe (ZETIA) 10 MG tablet 10 mg. 0 Active albuterol (PROVENTIL) (2.5 MG/3ML) 0.083% nebulizer solutionIndications: Exacerbation of asthma, unspecified asthma severity, unspecified whether persistent,Asthma, unspecified asthma severity, unspecified whether complicated, unspecified whether persistent,Multiple pulmonary nodules,History of tobacco use Take 1 Vial by nebulization once for 1 dose. 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 Lumbar spondylosis 04/21/2019 History of blood clots 11/17/2017 Overview: No further information Hyperlipidemia 06/13/2017 Depression 06/13/2017 Hypertension 06/13/2017 Diabetes mellitus type 2, uncomplicated 06/13/2017 Asthma 05/25/2017 Multiple pulmonary nodules 05/25/2017 History of tobacco use 05/25/2017 Social History Tobacco Use Types Packs/Day Years Used Date Smoking Tobacco: Former Smokeless Tobacco: Never Alcohol Use Standard Drinks/Week Comments No 0 (1 standard drink = 0.6 oz pur e alcohol) Sex Assigned at Date Recorded Not on file Last Filed Vital Signs Vital Sign Reading Time Taken Comments Blood Pressure 136/74 03/29/2019 2:10 PM EDT Pulse 74 03/29/2019 2:10 PM EDT Temperature - - Respiratory Rate 18 03/29/2019 2:10 PM EDT Oxygen Saturation 95% 03/29/2019 2:10 PM EDT Inhaled Oxygen Concentration - - Weight 68.9 kg (152 lb) 03/29/2019 2:10 PM EDT Height 154.9 cm (5' 1 ) 03/29/2019 2:10 PM EDT Body Mass Index 28.72 03/29/2019 2:10 PM EDT Plan of Treatment Health Maintenance Due Date Last Done Comments Covid-19 Vaccine (#1) 06/04/1940 DEPRESSION SCREEN 1951 DIABETES/HEART DISEASE: CYNTHIA VELOZ CHOLESTEROL (LDL) 12/02/1957 DIABETES: ANNUAL EYE EXAM 12/02/1957 DIABETES: ANNUAL FOOT EXAM 12/02/1957 DIABETES: ANNUAL URINE PROTE IN TEST (MICROALBUMIN) 12/02/1957 DIABETES: BLOOD SUGAR CONTRO L TEST (HGBA1C) 12/02/1957 MAMMOGRAM 1979 BONE DENSITY SCREENING 12/02/2004 FALL RISK ASSESSMENT 12/02/2004 SHINGLES VACCINE (2 of 3) 06/06/2013 04/11/2013 DTAP/TDAP/TD (2 - Td or Tdap) 08/19/2022 08/19/2012 BMI CHECK/ADVISE 07/27/2024 INFLUENZA (Season Ended) 2025 04/08/2018 PNEUMOCOCCAL VACCINE Completed 04/05/2015, 03/13/2011, 04/09/2000, Additional history exists Care Teams Industrial Chemist Relationship Specialty Start Date End Date Melinda Duff MD PCP - General Internal Medicine 03/23/24
--- OUTSIDE RECORDS SUMMARY | 2024-11-25 10:59 | XMS_ITS | Encounter Summary ---
Author Organization [employer] Address 75 [facility] 7t [place] [address] Care Team Providers Care Asphalt Surface Heater Operator Name Role Phone Melinda Krishnna MD Primary Care Provide r Rosmery Quiles PharmD Unavailable [phone]- [phone] Reason for Visit * Reason Comments Med Refill Encounter Details Date Type Department Care Team (Late st Contact Info) Description 01/06/2023 Refill [facility] MEDICINE [address] [place] [address] Julissa Camara MD 230 [place] [address] Pain in left shoulder Social History Tobacco Use Types Packs/Day Years Used Date Smoking Tobacco: Never Passive Smoke Exposure: Never Smokeless Tobacco: Never Depression Answer Date Recorded Patient Health Questionnaire-9 Score 0 11/12/2022 Depression Answer Date Recorded Patient Health Questionnaire-2 [...] suspected to have Coronavirus/COVID-19? No / Unsure 12/17/2022 2:04 PM EDT documented as of this encounter Plan of Treatment Upcoming Encounters Date Type Department Care Team (Late Contact Info) Description 12/02/2024 1:30 PM EDT Clinical Support [facility] DIABETES/NUTRITION [address] [place] [address] Aurora Cross, SUELLEN [address] [place] [address] 12/05/2024 2:30 PM EDT Office Visit [facility] ADULT DENTAL [address] [place] [address] Hardeep Fontenot, DMD [address] [place] [address] 01/09/2025 1:30 PM EDT Office Visit [facility] MEDICINE [address] [place] [address] Melinda Krishnan MD 230 [place] [address] 02/03/2025 1:30 PM EDT Telemedicine [facility] MEDICINE [address] [place] [address] Anjana Mendoza, NARA 05/22/2025 1:00 PM EDT Office Visit [facility] ADULT DENTAL [address] [place] [address] Selma Green [address] [place] [address] documented as of this encounter Visit Diagnoses Diagnosis Pain in left shoulder documented in this encounter Additional Health Concerns Assessment Noted Time PHQ-9 Depression Total Score: 0 11/13/19 23 2:46 PM EDT documented as of this encounter Care Teams Asphalt Surface Heater Operator Relationship Specialty Start Date End Date Melinda Krishnan MD [address] [place] [address] PCP - General Family Medicine 09/06/20 Rosmery Quiles PharmD [address] [place] [address] Pharmacist Internal Medicine 02/01/24 documented as of this encounter
--- OUTSIDE RECORDS SUMMARY | 2024-11-25 10:59 | XMS_ITS | Encounter Summary ---
Author Organization [employer] Address [address] [facility] 7t [place] [address] Care Team Providers Care Pen Tester Name Role Phone Melinda Krishnan MD Primary Care Provide r Rosmery Quiles PharmD Unavailable [phone]- [phone] Encounter Details Date Type Department Care Team (Late st Contact Info) Description 05/22/2023 Abstract [facility] MEDICINE [address] [place] [address] Melinda Krishnan MD [address] [place] [address] Social History Tobacco Use Types Packs/Day Years [...] Description 12/02/2024 1:30 PM EDT Clinical Support [facility] DIABETES/NUTRITION [address] [place] [address] Aurora Cross, SUELLEN [address] [place] [address] 12/05/2024 2:30 PM EDT Office Visit [facility] ADULT DENTAL [address] [place] [address] Hardeep Fontenot, GVAI [address] [place] [address] 01/09/2025 1:30 PM EDT Office Visit [facility] MEDICINE [address] [place] [address] Melinda Krishnan MD [address] [place] [address] 02/03/2025 1:30 PM EDT Telemedicine [facility] MEDICINE [address] [place] [address] Anjana Mendoza RN 05/22/2025 1:00 PM EDT Office Visit [facility] ADULT DENTAL [address] [place] [address] Selma Green [address] [place] [address] documented as of this encounter Visit Diagnoses Not on filedocumented in this encounter Additional Health Concerns Assessment Noted Time PHQ-9 Depression Total Score: 0 11/13/19 23 2:46 PM EDT documented as of this encounter Care Teams Pen Tester Relationship Specialty Start Date End Date Melinda Krishnan MD [address] [place] [address] PCP - General Family Medicine 09/06/20 Rosmery Quiles, Raisa [address] [place] [address] Pharmacist Internal Medicine 02/01/24 documented as of this encounter
--- OUTSIDE RECORDS SUMMARY | 2024-11-25 10:59 | XMS_ITS | Encounter Summary ---
Author Organization [employer] Address [address] [facility] 7t [place] [address] Care Team Providers Care Line Tester Name Role Phone Melinda Krishnan MD Primary Care Provide r Rosmery Quiles PharmD Unavailable [phone]- [phone] Reason for Visit * Reason Onset Date Comments partial difficulty 05/22/2023 Encounter Details Date Type Department Care Team ([facility] st Contact Info) Description 05/22/2023 Telephone [facility] ADULT DENTAL 230 [place] [address] Hardeep Fontenot, DMD [address] [place], [place] [phone] partial difficulty Social History Tobacco Use Types Packs/Day Years [...] * Telephone Encounter - Eileen Hogue - 05/22/2023 11:30 AM EDT Patient called in that she got her partial delivered today but states that there is something stuckin her partial that is getting caught on her lip. She was just in here today 05/22 She didn't notice it until she went to eat something. Can she be seen?? We do not double book in [facility] center. You canreach out to patient if you can get her on the schedule DR documented in this encounter Plan of Treatment Upcoming Encounters Date Type Department Care Team (Late st Contact Info) Description 12/02/2024 1:30 PM EDT Clinical Support [facility] DIABETES/NUTRITION [address] [place] [address] [place] [address] 12/05/2024 2:30 PM EDT Office Visit [facility] ADULT DENTAL [address] [place] [address] Hardeep Fontenot DMD [address] [place] [address] 01/09/2025 1:30 PM EDT Office Visit [facility] MEDICINE [address] [place] [address] Melinda Krishnan MD 230 [place] [address] 02/03/2025 1:30 PM EDT Telemedicine [facility] MEDICINE [address] [place] [address] Anjana Mendoza, RN 05/22/2025 1:00 PM EDT Office Visit [facility] ADULT DENTAL [address] [place] [address] Selma Green [address] [place] [address] documented as of this encounter Visit Diagnoses Not on filedocumented in this encounter Additional Health Concerns Assessment Noted Time PHQ-9 Depression Total Score: 0 11/13/19 23 2:46 PM EDT documented as of this encounter Care Teams Line Tester Relationship Specialty Start Date End Date Melinda Krishnan MD [address] [place] [address] PCP - General Family Medicine 09/06/20 Rosmery Quiles, HopeD [address] [place] [address] Pharmacist Internal Medicine 02/01/24 documented as of this encounter
--- OUTSIDE RECORDS SUMMARY | 2024-11-25 10:59 | XMS_ITS | Encounter Summary ---
Author Organization [employer] Address [address] [facility] 7t [place] [address] Care Team Providers Care Traffic Assistant Name Role Phone Melinda Krishnan MD Primary Care Provide r Rosmery Quiles PharmD Unavailable [phone]- [phone] Encounter Details Date Type Department Care Team ([facility] Contact Info) Description 01/29/2023 Orders Only [facility] MEDICINE [address] [place] [address] [phone] Silvia Fuentes LPN Social History Tobacco Use [...] suspected to have Coronavirus/COVID-19? No / Unsure 01/26/2023 1:17 PM EDT documented as of this encounter Plan of Treatment Upcoming Encounters Date Type Department Care Team ([facility] Contact Info) Description 12/02/2024 1:30 PM EDT Clinical Support [facility] DIABETES/NUTRITION [address] [place], [place] [phone] Aurora Cross, SUELLEN [address] [place] [address] 12/05/2024 2:30 PM EDT Office Visit [facility] ADULT DENTAL 230 [facility] [place] [address] Hardeep Fontenot, GAVI [address] [place] [address] 01/09/2025 1:30 PM EDT Office Visit [facility] MEDICINE [address] [facility] [place] [address] Melinda Krishnan MD 230 [place] [address] 02/03/2025 1:30 PM EDT Telemedicine [facility] [address] [place] [address] Anjana Mendoza RN 05/22/2025 1:00 PM EDT Office Visit [facility] ADULT DENTAL [address] [place] [address] NormaSelma [address] [place] [address] documented as of this encounter Visit Diagnoses Not on filedocumented in this encounter Additional Health Concerns Assessment Noted Time PHQ-9 Depression Total Score: 0 11/13/19 23 2:46 PM EDT documented as of this encounter Care Teams Traffic Assistant Relationship Specialty Start Date End Date Melinda Krishnan MD [address] [place] [address] PCP - General Family Medicine 09/06/20 Rosmery Quiles PharmD [address] [place] [address] Pharmacist Internal Medicine 02/01/24 documented as of this encounter
--- OUTSIDE RECORDS SUMMARY | 2024-11-25 10:59 | XMS_ITS | Encounter Summary ---
Author Organization [email or web address] Address [address] [facility] 7t [place] [address] Care Team Providers Care Prime Broker Name Role Phone Melinda Krishnan MD Primary Care Provide r Rosmery Quiles PharmD Unavailable [phone]- [phone] Encounter Details Date Type Department Care Team ([facility] Contact Info) Description 03/03/2023 Orders Only [facility] [address] [place], [place] [phone] Jimena West LPN Social History Tobacco Use Types Packs/Day [...] suspected to have Coronavirus/COVID-19? No / Unsure 02/02/2023 2:13 PM EDT documented as of this encounter Plan of Treatment Upcoming Encounters Date Type Department Care Team ([facility] Contact Info) Description 12/02/2024 1:30 PM EDT Clinical Support [facility] DIABETES/NUTRITION [address] [place], [place] [phone] Aurora Cross, SUELLEN [address] [place] [address] 12/05/2024 2:30 PM EDT Office Visit [facility] ADULT DENTAL [address] [place] [address] Hardeep Fontenot, DMD [address] [place] [address] 01/09/2025 1:30 PM EDT Office Visit [facility] MEDICINE [address] [place] [address] Melinda Krishnan MD [address] [place] [address] 02/03/2025 1:30 PM EDT Telemedicine [facility] [address] [place] [address] Anjana Mendoza RN 05/22/2025 1:00 PM EDT Office Visit [facility] ADULT DENTAL [address] [place] [address] NormaRupertSelma [address] [place] [address] documented as of this encounter Visit Diagnoses Not on filedocumented in this encounter Additional Health Concerns Assessment Noted Time PHQ-9 Depression Total Score: 0 11/13/19 23 2:46 PM EDT documented as of this encounter Care Teams Prime Broker Relationship Specialty Start Date End Date Melinda Krishnan MD [address] [place] [address] PCP - General Family Medicine 09/06/20 Rosmery Quiles, HopeD [address] [place] [address] Pharmacist Internal Medicine 02/01/24 documented as of this encounter
--- OUTSIDE RECORDS SUMMARY | 2024-11-25 10:59 | XMS_ITS | Encounter Summary ---
Author Organization [employer] Address [address] [facility] 7t [place] [address] Care Team Providers Care Lift Truck Mechanic Name Role Phone Melinda Krishnan MD Primary Care Provide r Rosmery Quiles PharmD Unavailable [phone] Reason for Visit * Reason Comments Med Refill Encounter Details Date Type Department Care Team (Late st Contact Info) Description 06/11/2023 Refill [facility] MEDICINE [address] [place], [place] [phone] Melinda Krishnan MD 230 [place], [place] [phone] Pain in left shoulder Social History Tobacco [...] Description 12/02/2024 1:30 PM EDT Clinical Support [facility] DIABETES/NUTRITION [address] [place] [address] [place] [address] 12/05/2024 2:30 PM EDT Office Visit [facility] ADULT DENTAL [address] [place] [address] Hardeep Fontenot, GAVI [address] [place] [address] 01/09/2025 1:30 PM EDT Office Visit [facility] MEDICINE [address] [place] [address] Melinda Krishnan MD [address] [place] [address] 02/03/2025 1:30 PM EDT Telemedicine [facility] MEDICINE [address] [place] [address] Anjana Mendoza RN 05/22/2025 1:00 PM EDT Office Visit [facility] ADULT DENTAL [address] [place] [address] Selma Green [address] [place] [address] documented as of this encounter Visit Diagnoses Diagnosis Pain in left shoulder documented in this encounter Additional Health Concerns Assessment Noted Time PHQ-9 Depression Total Score: 0 11/13/19 23 2:46 PM EDT documented as of this encounter Care Teams Lift Truck Mechanic Relationship Specialty Start Date End Date Melinda Krishnan MD [address] [place] [address] PCP - General Family Medicine 09/06/20 Rosmery Quiles, Raisa [address] [place] [address] Pharmacist Internal Medicine 02/01/24 documented as of this encounter
--- OUTSIDE RECORDS SUMMARY | 2024-11-25 10:59 | XMS_ITS | Data Portability ---
Author Organization [employer] [facility], Wi in - [facility] Address [address] [place] [phone] Care Team Providers Care Operations Supervisor 2Nd Shift Name Role Phone HIM CCA OTHER YONATHANEVA SINGLETARYHERMELINDO Primary Care Provider Assessment Encounter Date Assessment Date Assessment LastModified by Organization Details LastModified Time 09/16/2024 09/16/2024 As noted, we were called to see this patient regarding concerns of fever and cough. Evaluation in the field was performed by my potato chip processing supervisor colleague, as noted above, I provided real-time direction and supervision for this visit. The evaluation revealed patient is dehydrated and wheezing. She does not have an inhaler. She is positive to Flu. Patient states symptoms start 3-4 days ago. She is out of the window for tamiflu. Patient took tylenol at 1:30p. She received 500cc NS IV, duoneb, prednisone, ibuprofen. On re-evaluation patient feels much better as per medic. I have prescribed tylenol, ibuprofen, albuterol inhaler, and prednisone. Impression: Flu A, Wheezing Plan: Follow up PCP Primary care, consider labs, CXR Disposition: We discussed the diagnostic uncertainty of home visits and the risk associated with this. In this case, the patient and I felt this to be an acceptable and reasonable amount of risk given the benefit of avoiding an ED visit. We discussed the need to seek care urgently/emerge ntly in the setting of any new or worsening serious symptoms, particularly chest pain, shortness of breath. [email or web address] Not available 09/16/2024 16:02:30 Plan of Treatment Reminders Order Date Submit Date Provider Last Modified By Organization Details Last Modified Time Details Appointments None recorded. Lab rapid flu (A+B) 2024 025 [email or web address] [facility], [address] [place] [address], [id number] 02/21/202 5 15:33:51 rapid SARS CoV 2 Ag, QL IA, respiratory specimen [address] [place] [address], [address] [place] [address], [id number] 5 15:33:51 Referral None recorded. Procedures None recorded. Surgeries None recorded. Imaging None recorded. Medication Orders ipratropium 0.5 mg-albutero l 3 mg (2.5 mg base)/3 mL nebulizatio n soln [address] [place] [address] Pharmacy, [address] [place] [address], [id number], 5 15:33:51 prednisone 20 mg tablet [address] [place] [address] Pharmacy, [address] [place] [address], [id number], 5 15:33:51 prednisone 20 mg tablet [address] [place] [address] Pharmacy, [address] [place] [address], [id number], 5 17:52:17 albuterol sulfate HFA 90 mcg/actuati on aerosol inhaler [address] [place] [address] Pharmacy, [address] [place] [address], [id number], 5 17:52:16 ibuprofen 200 mg tablet [address] [place] [address] Pharmacy, [address] [place] [address], [id number], 5 15:33:51 ibuprofen 600 mg tablet [address] [place] [address] Pharmacy, [address] [place] [address], [id number], 5 17:52:15 Tylenol 325 mg tablet 2024 025 [facility], [address] [place] [address], [id number], 17:52:15 Patient TargetsNo targets recorded. Patient InstructionsNo instructions recorded. Reason for Referral None Reported. Results Created Date Observation Date Name Description Value Unit Range Abnormal Flag Note LastModifiedBy Organization Detail LastModifiedTime Result Notes None recorded. Medical Equipment None Reported. Allergies Allergen ID Allergen Name Allergen Category Reaction Reaction Severity Criticality Documentation Date Start Date Code Code System Note Provider Name and Address Organization Details Recorded Time 66603 codeine medicatio n Not available Not available Not available 09/16/2024 2670 RxNorm Not Available [facility] - production 13:20:05 Medications Name Sig Start Date Stop Date Status Note LastModified by Organization Details LastModified Time medbox status USE DIRECTED active Not Available Not Available No t Available atorvastatin 80 mg tablet TAKE 1 TABLET BY MOUTH AT BEDTIME active Not Available Not Available No t Available acetaminophe n 325 mg tablet TAKE 2 TABLETS BY MOUTH EVERY 6 HOURS NEEDED FOR FEVER active Not Available Not Available No t Available prednisone 10 mg tablet TAKE 2 TABLETS BY MOUTH EVERY DAY FOR 5 DAYS, THEN DECREASE TO 1 TABLET BY MOUTH EVERY DAY FOR 5 DAYS active Not Available Not Available No t Available doxycycline hyclate 100 mg capsule TAKE 1 CAPSULE BY MOUTH TWICE DAILY FOR 10 DAYS active Not Available Not Available No t Available ipratropium 0.5 mg-albuterol 3 mg (2.5 mg base)/3 mL nebulization soln Inhale 3 mL by nebulizatio n route. 2024 active Not Available Not Available Not Avai lable ketoconazole 2 % shampoo APPLY TO SCALP AND LEAVE ON FOR 5 MINUTES THEN RINSE OFF TWICE A WEEK active Not Available Not Available No t Available benzonatate 200 mg capsule TAKE 1 CAPSULE BY MOUTH TWICE DAILY NEEDED FOR COUGH active Not Available Not Available No t Available prednisone 20 mg tablet TAKE 2 TABLETS BY MOUTH ONCE DAILY FOR 4 DAYS active Not Available Not Available No t Available melatonin 3 mg tablet TAKE 1 TABLET BY MOUTH AT BEDTIME active Not Available Not Available No t Available clopidogrel 75 mg tablet TAKE 1 TABLET BY MOUTH EVERY MORNING (for the heart) active Not Available Not Available No t Available fexofenadine 180 mg tablet TAKE 1 TABLET BY MOUTH EVERY DAY NEEDED FOR ALLERGIES active Not Available Not Available No t Available tramadol 50 mg tablet TAKE 1 TABLET BY MOUTH EVERY 8 HOURS NEEDED FOR SEVERE PAIN active Not Available Not Available Not Available metformin 1,000 mg tablet TAKE 1 TABLET BY MOUTH TWICE DAILY IN THE MORNING AND IN THE EVENING WITH MEALS active Not Available Not Available N ot Available lidocaine 5 % topical patch APPLY 1 PATCH TOPICALLY TO SKIN, LEAVE ON FOR 12 HOURS AND OFF FOR 12 HOURS DIRECTED active Not Available Not Available No t Available glucose 4 gram chewable tablet CHEW 4 TABLETS BY MOUTH EVERY 15 MINUTES NEEDED HYPOGLYCEMI A WITH BLOOD SUGAR <70 active Not Available Not Available No t Available fluocinolone 0.01 % topical body oil APPLY TOPICALLY TO THE AFFECTED AREA(S) EVERY DAY NEEDED FOR DRY SKIN active Not Available Not Available No t Available ibuprofen 200 mg tablet Take 3 tablets by oral route. 2024 active Not Available Not Available Not Avai lable nitroglyceri n 0.4 mg sublingual tablet DISSOLVE 1 TABLET UNDER THE TONGUE EVERY 5 MINUTES NEEDED FOR CHEST PAIN. CALL 911 IF NO RELIEF active Not Available Not Available No t Available docusate sodium 100 mg capsule TAKE 2 CAPSULES BY MOUTH EVERY DAY AT BEDTIME active Not Available Not Available No t Available oxybutynin chloride ER 5 mg tablet,exten ded release 24 hr TAKE 1 TABLET BY MOUTH EVERY EVENING active Not Available Not Available No t Available hydrocortiso ne 2.5 % topical cream APPLY TOPICALLY TO THE AFFECTED AREA(S) TWICE DAILY active Not Available Not Available Not Available ibuprofen 600 mg tablet TAKE 1 TABLET BY MOUTH THREE TIMES DAILY NEEDED FOR FEVER active Not Available Not Available No t Available Acid Digital Designer (famotidine) 10 mg tablet TAKE 1 TO 2 TABLETS BY MOUTH TWICE DAILY NEEDED FOR HEARTBURN active Not Available Not Available No t Available glipizide 5 mg tablet TAKE 1/2 TABLET BY MOUTH ONCE DAILY. BEFORE LARGE MEAL. DO NOT TAKE IF YOU SKIP MEAL active Not Available Not Available No t Available naproxen 500 mg tablet TAKE 1 TABLET BY MOUTH TWICE DAILY active Not Available Not Available No t Available Ventolin HFA 90 mcg/actuatio n aerosol inhaler INHALE 2 PUFFS BY MOUTH EVERY 4 HOURS NEEDED FOR WHEEZING active Not Available Not Available No t Available ezetimibe 10 mg tablet TAKE 1 TABLET BY MOUTH EVERY MORNING active Not Available Not Available No t Available Alcohol Prep Pads USE TO TEST BLOOD SUGAR 2-4 TIMES DAILY active Not Available Not Available No t Available metoprolol tartrate 25 mg tablet TAKE 1 TABLET BY MOUTH TWICE DAILY IN THE MORNING AND IN THE EVENING (BLOOD PRESSURE) active Not Available Not Available No t Available BD Ultra-Fine Mini Pen Needle 31 gauge x 3/16 USE DIRECTED ONCE DAILY active Not Available Not Available N ot Available Glutose-15 40 % oral gel TAKE 15 GRAM BY MOUTH EVERY DAY NEEDED FOR LOW BLOOD SUGAR active Not Available Not Available No t Available Symbicort 160 mcg-4.5 mcg/actuatio n HFA aerosol inhaler INHALE 2 PUFFS BY MOUTH EVERY MORNING. RINSE MOUTH AFTER USING. (for asthma) active Not Available Not Available No t Available FreeStyle Lite Strips TEST BLOOD SUGAR THREE TIMES DAILY DIRECTED active Not Available Not Available Not Available Lantus Solostar U-100 Insulin 100 unit/mL (3 mL) subcutaneous pen INJECT 12 UNITS SUBCUTANEOU SLY EVERY DAY active Not Available Not Available No t Available diclofenac 1 % topical gel APPLY 4 GRAMS TOPICALLY TWICE DAILY active Not Available Not Available Not Available blood pressure test kit-large cuff USE DIRECTED active Not Available Not Available No t Available calcium 600 mg (as carbonate)-v itamin D3 20 mcg (800 unit) tablet TAKE 1 TABLET BY MOUTH TWICE DAILY IN THE MORNING AND IN THE EVENING active Not Available Not Available No t Available TRUEplus Lancets 33 gauge TEST BLOOD SUGAR THREE TIMES DAILY DIRECTED active Not Available Not Available Not Available Trulicity 1.5 mg/0.5 mL subcutaneous pen injector INJECT ONE PEN (=1.5MG) SUBCUTANEOU SLY ONCE A WEEK DIRECTED active Not Available Not Available No t Available Trulicity 0.75 mg/0.5 mL subcutaneous pen injector INJECT ONE PEN (=0.75MG) SUBCUTANEOU SLY ONCE A WEEK DIRECTED active Not Available Not Available No t Available multivitamin -minerals-ir on fumarate 7.5 mg-folic acid 400 mcg tablet TAKE 1 TABLET BY MOUTH EVERY MORNING (( VITAMIN)) active Not Available Not Available No t Available naloxone 4 mg/actuation nasal spray FOR SUSPECTED OPIOID OVERDOSE. SPRAY 0.1mL IN ONE NOSTRIL. REPEAT IN ALTERNATE NOSTRIL 2-3 MINUTES IF NEEDED. SEEK MEDICAL ATTENTION IMMEDIATELY EVEN IF PATIENT RESPONDS. active Not Available Not Available No t Available Baqsimi 3 mg/actuation nasal spray USE 1 SPRAY (3MG) IN ONE NOSTRIL FOR A PATIENT WITH SEVERE HYPOGLYCEMI A WHO IS NOT RESPONSIVE AND UNABLE SELF-TREAT WITH GLUCOSE. AFTERWARDS TURN ON SIDE. MAY REPEAT IN 15MINUTES IF PATIENT DOES NOT RESPOND. active Not Available Not Available No t Available Trulicity 3 mg/0.5 mL subcutaneous pen injector INJECT ONE PEN (= 3MG) SUBCUTANEOU SLY ONCE A WEEK DIRECTED active Not Available Not Available No t Available Trulicity 4.5 mg/0.5 mL subcutaneous pen injector INJECT ONE PEN (= 4.5MG) SUBCUTANEOU SLY ONCE A WEEK DIRECTED active Not Available Not Available No t Available Dexcom G7 Sensor device USE DIRECTED TO TEST BLOOD SUGAR THREE TIMES DAILY CHANGE EVERY 10 DAYS active Not Available Not Available No t Available Vitals Date Recorded Respiratory rate Body height Heart rate Body weight Oxygen saturation Oxygen saturation in Arterial blood by Pulse oximetry Body temperature Systolic blood pressure Diastolic blood pressure Provider Name and Address Organization Details Last Updated DateTime 5 20 /min 154.94 cm 120 /min 66418.9 6 g 94 % 94 % 99.8 [degF] 104 mm[Hg] 66 mm[Hg] Not Available [facility] - production 5 15:17:10 Social History None recorded. Functional Status None recorded. Mental Status None recorded. Family History Nothing Reported. Medical History No medical history recorded. Gynecological HistoryNo gynecological history recorded. Obstetrics History GPAL:G 0 P 0 0 0 0 Past Encounters Encounter ID Performer Location Encounter Start Date Encounter Closed Date Diagnosis/Indication Diagnosis SNOMED-CT Code Diagnosis ICD10 Code Diagnosis Note [id number] Dontae Fleming MD [facility] - [facility] [address] [place] [phone] 09/16/2024 15:17:08 09/19/2024 17:11:28 Wheezing 82107717 R06.2 Influenza A virus present [id number] 08 J09.X2 Health Concerns Section Related Observation LastModified by Organization Detai ls LastModified Time None Recorded Concern Status LastModified by Organization Details LastModified Time None Recorded Advance Directives Directive None Recorded Payers Encounter Date Sequence Insurance Name Policy Number Policy Gallardo Covered Member ID Gallardo Member ID Guarantor Name 09/16/2024 1 [facility] - DOS ON OR AFTER 2022 - DUAL ELIGIBLE - SENIOR LIVING OPTIONS AND ONE CARE (MEDICARE REPLACEMENT/ADV ANTAGE - HMO) Ana Varghese [id number] Ana Varghese Notes Date Note Type Note Provider Name and Address Organization Details Recorded Time 09/16/2024 text/html CRC Nurse Triage Notes (Lelia Ling - RN): Reason For Request: Pt daughter Katia calling, ot has fever and strong cough Patient Reports: Cough, fever greater than 2 days Denies: Increased work of breathing/labored ? with or without fever Unable to speak in full sentences without distress Discoloration of skin -cyanosis Needs to sleep sitting up, can? t catch breath Shortness of breath in setting of confusion Chief Complaints: Cough, Fever/chills PMH: Emphysema, Osteoarthritis, Diabetes Mellitus Type 2 PMH Reviewed at 09/16/2024:20 Allergies Reviewed at 09/16/2024:20 Comments: Patient has fever, general discomfort and cough. Cough is productive, clear sputum.Symptoms started 3 days ago. Temp 101.6 now. Taking Tylenol every 4 hours. Tylenol does lower temp but then fever returns around 4 hours after the Tylenol given. No chest pain or shortness of breath reported. Patient is also taking Diabetic tussin for cough. Education provided on the response time and the member was advised to monitor reported s/s and seek emergency treatment if needed. Senior Clinical Research Scientist Organization Information for Angelic Mcarthur Business Legal Name: [employer]? Address: [address] [place] [address], Interventional Radiologist: Malcolm Caruso MD CLIA No.: [id number] Senior Clinical Research Scientist POC Test Results from [employer] Rapid COVID antigen (15:17:05) COVID: - Rapid influenza antigen (15:17:06) Flu: +A .................. .................. .................. .................. .................. .................. .................. ............... Senior Clinical Research Scientist Note From Angelic Mcarthur: DK makes pt contact. She is found sitting upright on the edge of her bed inside her tiny and very cramped bedroom. She is conscious, alert, and speaking w/ her daughter. Her face is flushed, she appears tired, and she has a congested quality to her voice w/ an intermittent productive cough. She is not in acute distress, no stridor or sonorous respirations are present. No facial droop, slurred speech, or one-sided weakness are observed and she is not bleeding anywhere. Pt and family are Maori-speaking only, so translator and interpreter services are utilized. Pt c/o fever, cough, and body aches for the past three days. She has not been able to get rid of the fever, only reduce it for a short time. She has pain in my body and c/o gaona today. Family has tested her two times for COVID and she has been negative each time. She does not know if she has had any sick contacts, but thinks it is possible, as she had a podiatry appointment earlier in the week and was out of the apartment. Pt has been taking diabetic tussin for cough and Tylenol for her fever. She says she is prescribed an albuterol inhaler, but she hasn't had to use it for a long time and what she has is . She uses O2 via portable concentrator as needed, but has not utilized it since being sick. She is denying cp, n/v/d, abd pain and urinary symptoms. She feels occasionally more sob than usual and has had fevers. Pt consents to evaluation and treatment today. [facility] obtains pt consent. Vital signs are gathered and pt is assessed. Lung sounds are rhonchus and decreased in the bases w/ some mild expiratory wheezes throughout. Her skin is warm to touch and tents easily. Oral mucosa is somewhat dry. Pt is swabbed for COVID/flu and results show positive for flu A. [facility] and [facility] discuss the above. [facility] orders 30mg prednisone and 600mg ibuprofen PO, a duo neb, and 500mls LR fluid bolus. A 20ga IV is established in the R forearm and locked w/ a saline lock. As fluids are administered, pt is given a duo neb at 8lpm O2 via nebulizer pipe. After breathing treatment, pt is given 40mg prednisone and 600mg ibuprofen PO and lung sounds are reassessed. Lung sounds are more clear w/ sounds in the bases and continued rhonchi in the larger airways. She says she is feeling better. IV is removed and pressure bandage is applied w/ 2x2 and coban. Distribution Transformer Assembler services are again used to ensure pt and family understand the medications that [facility] prescribed and answer any remaining questions. Pt and family thank [facility] for coming. [facility] is clear. Report completed by MIGUE Mcarthur [id number]. [facility] Lab Orders: rapid flu (A+B): Performed rapid SARS CoV 2 Ag, QL IA, respiratory specimen: Performed .................. .................. .................. .................. .................. .................. .................. ............... [facility] Consulted: Dontae Fleming .................. .................. .................. .................. .................. .................. .................. ............... Disposition: Fulfilled Dontae Fleming MD [address] [facility],[address], [place], [phone], LEWIS - ApplyKitSHARA TAN 09/18/2024 15:40:15 OBGyn Episode No OBEpisode recorded.
--- OUTSIDE RECORDS SUMMARY | 2024-11-25 10:59 | XMS_ITS | Encounter Summary ---
Author Organization [employer] Address [address] [facility] [address] [place] [address] Care Team Providers Care Programming Instructor Name Role Phone Melinda Krishnan MD Primary Care Provide r Rosmery Quiles PharmD Unavailable [phone] Reason for Visit * Reason Comments Med Refill Encounter Details Date Type Department Care Team (Late st Contact Info) Description 11/21/2024 Refill [facility] MEDICINE [address] [place] [address] Rosmery Quiles, PharmD [address] [place] [address] Type 2 diabetes mellitus with hyperglycemia, without long-term current use of insulin ([facility]) Social History Tobacco Use Types Packs/Day Years [...] Recorded Patient Health Questionnaire-2 Score 3 03/16/2024 Internet Access Answer Date Recorded Internet Access Q1 Yes 10/11/2024 Internet Access Q2 Not on file 10/11/2024 Comments Unknown Sex and Gender Information Value [...] Description 12/02/2024 1:30 PM EDT Clinical Support [facility] DIABETES/NUTRITION [address] [place] [phone] Aurora Cross, SUELLEN [address] [place] [address] 12/05/2024 2:30 PM EDT Office Visit [facility] ADULT DENTAL [address] [place] [phone] Hardeep Fontenot, GAVI [address] [place] [address] 01/09/2025 1:30 PM EDT Office Visit [facility] MEDICINE [address] [place] [phone] Melinda Krishnan MD [address] [place] [address] 02/03/2025 1:30 PM EDT Telemedicine [facility] MEDICINE [address] [place] [address] Anjana Mendoza RN 05/22/2025 1:00 PM EDT Office Visit [facility] ADULT DENTAL [address] [place] [address] Selma Green [address] [place] [address] documented as of this encounter Goals Goal Patient Goal Type Associated Problems Recent Progress Patient-Stated? Author Hemoglobin A1c < 8 Result Component 7.7( 2:01 PM EST) No Danielle Sharma Record your blood sugar as directed Result Component No Danielle Sharma documented as of this encounter Visit Diagnoses Diagnosis Type 2 diabetes mellitus with hyperglycemia, without long-term current use of insulin ([facility]) documented in this encounter Additional Health Concerns Assessment Noted Time PHQ-9 Depression Total Score: 9 03/16/20 24 3:28 PM EDT documented as of this encounter Care Teams Programming Instructor Relationship Specialty Start Date End Date Melinda Krishnan MD [address] [place] [phone] PCP - General Family Medicine 09/06/20 Rosmery Quiles, HopeD [address] [place] [phone] Pharmacist Internal Medicine 02/01/24 documented as of this encounter
--- OUTSIDE RECORDS SUMMARY | 2024-11-25 10:59 | XMS_ITS | Encounter Summary ---
Author Organization [employer] Address [address] [facility] [address] [place] [address] Care Team Providers Care Director Of Technology Name Role Phone Melinda Krishnan MD Primary Care Provide r Rosmery Quiles PharmD Unavailable [phone] Reason for Visit * Reason Onset Date Comments rs no show appt 05/30/2024 Encounter Details Date Type Department Care Team (Late st Contact Info) Description 05/30/2024 Telephone [facility] ADULT DENTAL [address] [place] [address] Hardeep Fontenot, DMD [address] [place] [address] rs no show appt Social History Tobacco Use Types Packs/Day Years [...] the past 12 months, has t he [employer], gas, oil or water company threatened to [...] * Telephone Encounter - Eileen Hogue - 05/30/2024 1:36 PM EST Patient called in looking to rs no show appt. It was explained that she is currently on a wait and office will reach out to her for scheduling when her name comes back up on the list. She is upset because she wants the appt scheduled immediately. She was informed she has an appt schedule for the lamberto and because it was a no show she will be scheduled when it is her turn to come back in DR documented in this encounter Plan of Treatment Upcoming Encounters Date Type Department Care Team (Late st Contact Info) Description 12/02/2024 1:30 PM EDT Clinical Support [facility] DIABETES/NUTRITION [address] [place], [place] [phone] Aurora Cross, SUELLEN [address] [place] [address] 12/05/2024 2:30 PM EDT Office Visit [facility] ADULT DENTAL [address] [place], [place] [phone] Hardeep Fontenot, DMD [address] [place] [address] 01/09/2025 1:30 PM EDT Office Visit [facility] MEDICINE [address] [place] [address] Melinda Krishnan MD [address] [place] [address] 02/03/2025 1:30 PM EDT Telemedicine [facility] MEDICINE [address] [place] [address] Anjana Mendoza, NARA 05/22/2025 1:00 PM EDT Office Visit [facility] ADULT DENTAL [address] [place] [address] Selma Green [address] [place] [address] documented as of this encounter Goals Goal [...] documented as of this encounter Care Teams Director Of Technology Relationship Specialty Start Date End Date Melinda Krishnan MD [address] [place] [phone] PCP - General Family Medicine 09/06/20 Rosmery Quiles, HopeD [address] [place] [phone] Pharmacist Internal Medicine 02/01/24 documented as of this encounter
--- OUTSIDE RECORDS SUMMARY | 2024-11-25 10:59 | XMS_ITS | Encounter Summary ---
Author Organization [employer] Address 75 [facility] 7t [place] [address] Care Team Providers Care Piano Refinisher Name Role Phone Melinda Krishnan MD Primary Care Provide r Rosmery Quiles PharmD Unavailable [phone]- [phone] Reason for Visit * Reason Onset Date Comments Med Refill 09/28/2024 Encounter Details Date Type Department Care Team ([facility] st Contact Info) Description 09/28/2024 Telephone [facility] MEDICINE [address] [place] [address] Melinda Krishnan MD [address] [place] [address] Med Refill Social History Tobacco Use Types [...] the past 12 months, has t he [employer], gas, oil or water [employer] threatened to shut off services in your [...] encounter Miscellaneous Notes * Telephone Encounter - Jimena West LPN - 09/28/2024 1:19 PM EST Medication pended to PCP. * Telephone Encounter - Selma Carmichael - 09/28/2024 12:40 PM EST TC from pt requesting medication refill. Medications needing refill : hydrocortisone 2.5 % cream To be sent to: [facility] documented in this encounter Plan of Treatment Upcoming Encounters Date Type Department Care Team (Late st Contact Info) Description 12/02/2024 1:30 PM EDT Clinical Support [facility] DIABETES/NUTRITION [address] [place], [place] [phone] Aurora Cross, SUELLEN [address] [place] [address] 12/05/2024 2:30 PM EDT Office Visit [facility] ADULT DENTAL [address] [place] [address] Hardeep Fontenot, DMD [address] [place] [address] 01/09/2025 1:30 PM EDT Office Visit [facility] MEDICINE [address] [place] [address] Melinda Krishnan MD [address] [place] [address] 02/03/2025 1:30 PM EDT Telemedicine [facility] MEDICINE [address] [place] [address] Anjana Mendoza RN 05/22/2025 1:00 PM EDT Office Visit [facility] ADULT DENTAL [address] [place] [address] Selma Green [address] [place] [address] documented as of this encounter Goals Goal [...] documented as of this encounter Care Teams Piano Refinisher Relationship Specialty Start Date End Date Melinda Krishnan MD [address] [place] [address] PCP - General Family Medicine 09/06/20 Rosmery Quiles, HopeD [address] [place] [address] Pharmacist Internal Medicine 02/01/24 documented as of this encounter
--- OUTSIDE RECORDS SUMMARY | 2024-11-25 10:59 | XMS_ITS | Encounter Summary ---
Author Organization [employer] Address 75 [facility] 7t [place] [address] Care Team Providers Care Clock And Watch Hands Dipper Name Role Phone Melinda Krishnan MD Primary Care Provide r Rosmery Quiles PharmD Unavailable [phone]- [phone] Encounter Details Date Type Department Care Team (Late st Contact Info) Description 05/22/2023 Abstract [facility] MEDICINE [address] [place] [address] Melinda Krishnan MD [address] [place] [address] Social History Tobacco Use Types Packs/Day Years [...] Description 12/02/2024 1:30 PM EDT Clinical Support [facility] DIABETES/NUTRITION [address] [place] [address] Aurora Cross, SUELLEN [address] [place] [address] 12/05/2024 2:30 PM EDT Office Visit [facility] ADULT DENTAL [address] [place] [address] Hardeep Fontenot, GAVI [address] [place] [address] 01/09/2025 1:30 PM EDT Office Visit [facility] MEDICINE [address] [place] [address] Melinda Krishnan MD [address] [place] [address] 02/03/2025 1:30 PM EDT Telemedicine [facility] MEDICINE [address] [place] [address] Anjana Mendoza RN 05/22/2025 1:00 PM EDT Office Visit [facility] ADULT DENTAL [address] [place] [address] Selma Green [address] [place] [address] documented as of this encounter Visit Diagnoses Not on filedocumented in this encounter Additional Health Concerns Assessment Noted Time PHQ-9 Depression Total Score: 0 11/13/19 23 2:46 PM EDT documented as of this encounter Care Teams Clock And Watch Hands Dipper Relationship Specialty Start Date End Date Melinda Krishnan MD [address] [place] [address] PCP - General Family Medicine 09/06/20 Rosmery Quiles, Raisa [address] [place] [address] Pharmacist Internal Medicine 02/01/24 documented as of this encounter
--- OUTSIDE RECORDS SUMMARY | 2024-11-25 10:59 | XMS_ITS | Encounter Summary ---
Author Organization [employer] Address 75 [facility] 7t [place] [address] Care Team Providers Care Senior Merchandiser Name Role Phone Melinda Krishnan MD Primary Care Provide r Rosmery Quiles PharmD Unavailable [phone]- [phone] Reason for Visit * Reason Comments Med Refill Encounter Details Date Type Department Care Team (Late st Contact Info) Description 06/11/2023 Refill [facility] MEDICINE [address] [place], [place] [phone] Melinda Krishnan MD [address] [place], [place] [phone] Pain in left shoulder Social History Tobacco [...] Description 12/02/2024 1:30 PM EDT Clinical Support [facility] DIABETES/NUTRITION [address] [place] [address] [place] [address] 12/05/2024 2:30 PM EDT Office Visit [facility] ADULT DENTAL [address] [place] [address] Hardeep Fontenot, GAVI 230 [place] [address] 01/09/2025 1:30 PM EDT Office Visit [facility] MEDICINE [address] [place] [address] eMlinda Krishnan MD [address] [place] [address] 02/03/2025 1:30 PM EDT Telemedicine [facility] MEDICINE [address] [place] [address] Anjana Mendoza RN 05/22/2025 1:00 PM EDT Office Visit [facility] ADULT DENTAL [address] [place] [address] Selma Green 230 [place] [address] documented as of this encounter Visit Diagnoses Diagnosis Pain in left shoulder documented in this encounter Additional Health Concerns Assessment Noted Time PHQ-9 Depression Total Score: 0 11/13/19 23 2:46 PM EDT documented as of this encounter Care Teams Senior Merchandiser Relationship Specialty Start Date End Date Melinda Krishnan MD [address] [place] [address] PCP - General Family Medicine 09/06/20 Rosmery Quiles, Raisa [address] [place] [address] Pharmacist Internal Medicine 02/01/24 documented as of this encounter
--- OUTSIDE RECORDS SUMMARY | 2024-11-25 10:59 | XMS_ITS | Encounter Summary ---
Author Organization [employer] Address 75 [facility] 7t [place] [address] Care Team Providers Care Distillery Miller Name Role Phone Melinda Krishnan MD Primary Care Provide r Rosmery Quiles PharmD Unavailable [phone]- [phone] Reason for Visit * Reason Comments Med Refill Encounter Details Date Type Department Care Team (Late Contact Info) Description 01/06/[address] [facility] MED & PEDS [address] [place] [address] Genesis Spencer FNP [address] [place] [address] Dept [place] [address] Vitamin D deficiency Social History Tobacco Use Types Packs/Day Years [...] Upcoming Encounters Date Type Department Care Team ([facility] Contact Info) Description 12/02/2024 1:30 PM EDT Clinical Support [facility] DIABETES/NUTRITION [address] [place] [address] Aurora Cross, SUELLEN [address] [place] [address] 12/05/2024 2:30 PM EDT Office Visit [facility] ADULT DENTAL [address] [place] [address] Hardeep Fontenot, DMD [address] [place] [address] 01/09/2025 1:30 PM EDT Office Visit [facility] MEDICINE [address] [place] [address] Melinda Krishnan MD 230 [place] [address] 02/03/2025 1:[address] [facility] MEDICINE [address] [place] [address] Anjana Mendoza RN 05/22/2025 1:00 PM EDT Office Visit [facility] ADULT DENTAL [address] [place] [address] Selma Green [address] [place] [address] documented as of this encounter Visit Diagnoses Diagnosis Vitamin D deficiency documented in this encounter Additional Health Concerns Assessment Noted Time PHQ-9 Depression Total Score: 0 11/13/19 23 2:46 PM EDT documented as of this encounter Care Teams Distillery Miller Relationship Specialty Start Date End Date Melinda Krishnan MD [address] [place] [address] PCP - General Family Medicine 09/06/20 Rosmery Quiles, Raisa [address] [place] [address] Pharmacist Internal Medicine 02/01/24 documented as of this encounter
--- OUTSIDE RECORDS SUMMARY | 2024-11-25 10:59 | XMS_ITS | Encounter Summary ---
Author Organization [employer] Address 75 [facility] 7t [place] [address] Care Team Providers Care Sales Forecast Analyst Name Role Phone Melinda Krishnan MD Primary Care Provide r Rosmery Quiles PharmD Unavailable [phone]- [phone] Reason for Visit * Reason Onset Date Comments Med Refill 06/11/2023 Encounter Details Date Type Department Care Team ([facility] st Contact Info) Description 06/11/2023 Telephone [facility] MEDICINE [address] [place] [address] Melinda Krishnan MD [address] [place], [place] [phone] Med Refill Social History Tobacco Use Types [...] encounter Miscellaneous Notes * Telephone Encounter - Anjana Mendoza RN - 06/12/2023 7:32 AM EST Tramadol request too soon, not due until 06/18/23. Will forward to PCP on 06/16/23. * Telephone Encounter - Sheryl Nolasco - 06/11/2023 3:02 PM EST Tc from pt requesting medication refill on traMADol (Ultram) 50 MG tablet to be sent to [facility] pharmacy documented in this encounter Plan of Treatment Upcoming Encounters Date Type Department Care Team (Late st Contact Info) Description 12/02/2024 1:30 PM EDT Clinical Support [facility] DIABETES/NUTRITION [address] [place] [address] Aurora Cross, SUELLEN [address] [place] [address] 12/05/2024 2:30 PM EDT Office Visit [facility] ADULT DENTAL [address] [place] [address] Hardeep Fontenot, GAVI [address] [place] [address] 01/09/2025 1:30 PM EDT Office Visit [facility] MEDICINE [address] [place], [place] [phone] Melinda Krishnan MD [address] [place] [address] 02/03/2025 1:30 PM EDT Telemedicine [facility] MEDICINE [address] [place] [address] Anjana Mendoza RN 05/22/2025 1:00 PM EDT Office Visit [facility] ADULT DENTAL [address] [place] [address] Rupert Greenaris [address] [place] [address] documented as of this encounter Visit Diagnoses Not on filedocumented in this encounter Additional Health Concerns Assessment Noted Time PHQ-9 Depression Total Score: 0 11/13/19 23 2:46 PM EDT documented as of this encounter Care Teams Sales Forecast Analyst Relationship Specialty Start Date End Date Melinda Krishnan MD [address] [place] [address] PCP - General Family Medicine 09/06/20 Rosmery Quiles, HopeD [address] [place] [address] [phone] Pharmacist Internal Medicine 02/01/24 documented as of this encounter
--- OUTSIDE RECORDS SUMMARY | 2024-11-25 11:00 | XMS_ITS | Encounter Summary ---
Author Organization [employer] [facility] Address [address] [place] [address] Care Team Providers Care Primary Teacher Name Role Phone Sparkle Magallanes MD Primary Care Provider [facility] Melinda Duff MD Primary Care Provide r Unavailable Encounter Details Date Type Department Care Team Description 04/01/2019 Orders Only Medical Records [address] [place] [address] Abstract, Provider Social History Tobacco Use Types Packs/Day Years Used Date Smoking Tobacco: Former Smokeless Tobacco: Never Alcohol Use Standard Drinks/Week Comments No 0 (1 standard drink = 0.6 oz pur e alcohol) Sex Assigned at Date Recorded Not on file documented as of this encounter Plan of Treatment Not on file documented as of this encounter Procedures Procedure Name Priority Date/Time Associated Diagnosis Comments OUTSIDE PLAIN FILM Routine 03/29/2019 documented in this encounter Results * OUTSIDE PLAIN FILM (03/29/2019) Yoselyn Kothari MD RADIOLOGY documented in this encounter Visit Diagnoses Not on filedocumented in this encounter Care Teams Primary Teacher Relationship Specialty Start Date End Date Sparkle Magallanes MD PCP - General Family Practice 10/25/17 4 Melinda Duff MD PCP - General Internal Medicine 03/23/24 documented as of this encounter
--- OUTSIDE RECORDS SUMMARY | 2024-11-25 11:00 | XMS_ITS | Encounter Summary ---
Author Organization [employer] Address 75 [facility] 7t [place] [address] Care Team Providers Care Automotive Technician Instructor Name Role Phone Melinda Krishnan MD Primary Care Provide r Rosmery Quiles PharmD Unavailable [phone] Reason for Visit * Reason Comments Med Refill Encounter Details Date Type Department Care Team ([facility] st Contact Info) Description 05/11/2023 Refill [facility] MEDICINE [address] [place], [place] [phone] Melinda Krishnan MD [address] [place], [place] [phone] Social History Tobacco Use Types Packs/Day Years [...] 12/02/2024 1:30 PM EDT Clinical Support [facility] DIABETES/NUTRITION [address] [place] [address] [place] [address] 12/05/2024 2:30 PM EDT Office Visit [facility] ADULT DENTAL [address] [place] [address] Hardeep Fontenot, GAVI [address] [place] [address] 01/09/2025 1:30 PM EDT Office Visit [facility] MEDICINE [address] [place] [address] Melinda Krishnan MD [address] [place] [address] 02/03/2025 1:30 PM EDT Telemedicine [facility] MEDICINE [address] [place] [address] Anjana Mendoza RN 05/22/2025 1:00 PM EDT Office Visit [facility] ADULT DENTAL [address] [place] [address] Selma Green [address] [place] [address] documented as of this encounter Visit Diagnoses Not on filedocumented in this encounter Additional Health Concerns Assessment Noted Time PHQ-9 Depression Total Score: 0 11/13/19 23 2:46 PM EDT documented as of this encounter Care Teams Automotive Technician Instructor Relationship Specialty Start Date End Date Melinda Krishnan MD [address] [place] [address] PCP - General Family Medicine 09/06/20 Rosmery Quiles, HopeD [address] [place] [address] Pharmacist Internal Medicine 02/01/24 documented as of this encounter
--- OUTSIDE RECORDS SUMMARY | 2024-11-25 11:00 | XMS_ITS | Clinical Summary ---
Author Organization [facility] Address [address] [place] [address] Phone Care Team Providers Care Pension Agent Name Role Phone Melinda Krishnan MD Primary Care Provide r Allergies Active Allergy Reactions Criticality Noted Date Comments Codeine Nausea And Vomiting 12/16/2016 Insulin Lispro Nausea And Vomiting 04/21/2019 Oxycodone Nausea And Vomiting 04/21/2019 Medications acetaminophen (TYLENOL) 500 mg tablet 500 mg. Active ranitidine HCl (ZANTAC ORAL) 150 mg. Active ramipriL (ALTACE) 10 mg capsule 10 mg. Active metoprolol succinate (TOPROL-XL) 50 mg 24 hr tablet 50 mg. Active loratadine (CLARITIN) 10 mg tablet 10 mg. Active insulin glargine (LANTUS) 100 unit/mL injection 100 Units/mL. Active fluticasone propionate (FLONASE) 50 mcg/actuation nasal spray USE 1 SPRAY IN EACH NOSTRIL ONCE DAILY. Active ezetimibe (ZETIA) 10 mg tablet 10 mg. Active diphenhydrAMIN E (BENADRYL) 25 mg tablet 25 mg. 7 Active clotrimazole (LOTRIMIN) 1 % cream APPLY 2-3 TIMES DAILY TO AFFECTED AREA(S). Active clopidogreL (PLAVIX) 75 mg tablet 75 mg. Active cholecalcifero l (VITAMIN D-3) 1,250 mcg (50,000 unit) capsule 50,000 Units. Active atorvastatin (LIPITOR) 80 mg tablet 80 mg. Active calcium carbonate-desmond min D3 (Caltrate with Vitamin D3) 600 mg-20 mcg (800 unit) tablet TAKE 1 TABLET DAILY DIRECTED. Active albuterol HFA (PROAIR HFA ; PROVENTIL HFA ; VENTOLIN HFA) 90 mcg/actuation inhaler INHALE 2 PUFFS EVERY 4-6 HOURS NEEDED. Active albuterol 2.5 mg /3 mL (0.083 %) nebulizer solution Take 1 Vial by nebulization once for 1 dose. 8 Active metFORMIN (GLUCOPHAGE) 1,000 mg tablet 1,000 mg. Active repaglinide (PRANDIN) 2 mg tablet 2 mg. Active senna (SENOKOT) 8.6 mg tablet 8.6 mg. Active SITagliptin phosphate (Januvia) 100 mg tablet 100 mg. Active traZODone (DESYREL) 50 mg tablet 50 mg. Active triamcinolone (KENALOG) 0.1 % cream APPLY AND RUB IN A THIN FILM TO AFFECTED AREAS TWICE DAILY.(AM AND PM). Active diclofenac (Voltaren Arthritis Pain) 1 % topical gel Apply 4 g topically 2 (two) times a day. 240 g 1 5 11/14/19 25 Active Problems Problem Noted Date Diagnosed Date Urge incontinence 04/21/2019 Osteopenia 04/21/2019 Lumbar spondylosis 04/21/2019 Vitamin D deficiency 04/21/2019 Degenerative joint disease (DJD) of hip 04/21/20 19 Overview (04/27/2024): right Allergic rhinitis 04/21/2019 Hyperlipidemia 06/13/2017 Hypertension 06/13/2017 Diabetes mellitus type 2, un complicated (CMS/[facility] V24, CMS/[facility] V28) 06/13/2017 Depression 06/13/2017 Asthma 05/25/2017 Multiple pulmonary nodules 05/25/2017 Encounters Date Type Department Care Team Description 09/14/2024 1:45 PM EST Office Visit Orthopedic Surgery - [address] [address] Angelo Mendez, DPM Pain due to bone fixation device, subsequent encounter (Primary Dx); Neuritis; Arthritis; Metatarsalgia of left foot; Diabetic mononeuropathy simplex ([facility] V24, [facility] V28) from Last 3 Months Medical History Medical History Date Comments Hyperlipidemia 06/13/2017 DX:Hyperlipidemi a Depression 06/13/2017 DX:Depression Hypertension 06/13/2017 DX:Hypertension Diabetes mellitus type 2, uncomplicated ([facility] V24, [facility] V28) 06/13/2017 DX:Diabetes mellitus type 2, uncomplicated ([facility]) Asthma 05/25/2017 DX:Asthma History of tobacco use 05/25/2017 DX:Histor y of tobacco use Multiple pulmonary nodules 05/25/2017 DX:Mu ltiple pulmonary nodules History of blood clots 11/17/2017 DX:Histor y of blood clots Urge incontinence 04/21/2019 DX:Urge incont inence Vitamin D deficiency 04/21/2019 DX:Vitamin D deficiency Allergic rhinitis 04/21/2019 DX:Allergic rh initis Osteopenia 04/21/2019 DX:Osteopenia Degenerative joint disease ( DJD) of hip 04/21/2019 DX:Degenerative joint diseas e (DJD) of hip; COMMENT: right Lumbar spondylosis 04/21/2019 DX:Lumbar spo ndylosis Social History Tobacco Use Types Packs/Day Years Used Date Smoking Tobacco: Former Smokeless Tobacco: Never Alcohol Use Standard Drinks/Week Comments No 0 (1 standard drink = 0.6 oz pur e alcohol) Comments Unknown Sex and Gender Information Value Date Recorded Sex Assigned at Not on file Legal Sex Female 3:59 AM EST Gender Identity Not on file Sexual Orientation Not on file Obstetrics History Last Filed Vital Signs Vital Sign Reading Time Taken Comments Blood Pressure - - Pulse - - Temperature - - Respiratory Rate - - Oxygen Saturation - - Inhaled Oxygen Concentration - - Weight 61.2 kg (135 lb) 09/14/2024 1:42 PM EST Height 154.9 cm (5' 0.98 ) 09/14/2024 1:42 PM ES T Body Mass Index 25.52 09/14/2024 1:42 PM EST Plan of Treatment Upcoming Encounters Date Type Department Care Team (Late st Contact Info) Description 03/13/2025 1:30 PM EDT Office Visit Orthopedic Surgery [facility] [address] [address] Angelo Mendez, DPM [address] [address] Health Maintenance Due Date Last Done Comments Diabetes: Annual Foot Exam 12/02/1950 Diabetes: Annual Retina Eye Exam 12/02/1950 Falls Risk Assessment 06/29/2022 Osteoporosis Screening (Bone Density Screening) 06/29/2022 Social Influencers of Health Screening 06/29/2022 Diabetes: Annual Urine Albumin-Creatinine Ratio (uACR) 07/11/2022 COVID-19 Vaccine ( season) 2024 12/16/2023, 12/10/2021, 08/22/2021, Additional history exists Diabetes: Blood Sugar Control Test (HGBA1C) 02/26/2025 08/29/2024, 06/03/2024, 03/16/2024 Depression Screening 03/16/2025 03/16/2024 Diabetes: Annual GFR (Glomerular Filtration Rate) 06/28/2025 06/28/2024, 06/20/2024 Hypertension/CHF/CAD Annual BMP Blood Test 06/28/2025 06/28/2024, 06/20/2024 Cholesterol Screening (Lipid Panel) 02/22/2029 02/23/2024 DTaP,Tdap,and Td Vaccines (5 - Td or Tdap) 12/15/2033 12/16/2023, 08/19/2012, 10/24/2003, Additional history exists Pneumococcal Vaccine: 50+ Years Completed 04/05/2015, 03/13/2011, 04/09/2000, Additional history exists Hepatitis B Vaccines Completed 02/17/2017, 09/23/2016, 08/20/2016 Zoster Vaccines Completed 02/10/2022, 11/24, 04/11/2013 RSV Immunization Adult Patients Completed 09/03/2023 Influenza Vaccine Completed 04/20/2024, , 04/27/2022, Additional history exists HIB Vaccines Aged Out No longer eligi ble based on patient's age to complete this topic HPV Vaccines Aged Out No longer eligi ble based on patient's age to complete this topic Hepatitis A Vaccines Aged Out No long er eligible based on patient's age to complete this topic IPV Vaccines Aged Out No longer eligi ble based on patient's age to complete this topic MMR Vaccines Aged Out No longer eligi ble based on patient's age to complete this topic Meningococcal ACWY Vaccine Aged Out N o longer eligible based on patient's age to complete this topic Meningococcal B Vaccine Aged Out No l onger eligible based on patient's age to complete this topic RSV Immunization Patients Under 20 months Aged Out No longer eligible based on patient's age to complete this topic Varicella Vaccines Aged Out No longer eligible based on patient's age to complete this topic Insurance MEDICA[place] - [place] [facility] MEDICAID Care Teams Pension Agent Relationship Specialty Start Date End Date Melinda Krishnan MD 230 [facility] [address] [place] [phone] PCP - General Internal Medicine 04/27/24
--- OUTSIDE RECORDS SUMMARY | 2024-11-25 11:00 | XMS_ITS | Encounter Summary ---
Author Organization [employer] Address 75 [facility] 7t [place] [address] Care Team Providers Care Disability Aide Name Role Phone Melinda Krishnan MD Primary Care Provide r Rosmery Quiles PharmD Unavailable [phone]- [phone] Reason for Visit * Reason Comments Med Refill Encounter Details Date Type Department Care Team (Late st Contact Info) Description 05/08/2023 Refill [facility] MEDICINE [address] [place], [place] [phone] Melinda Krishnan MD [address] [place], [place] [phone] Pain in left shoulder Social History Tobacco [...] Description 12/02/2024 1:30 PM EDT Clinical Support [facility] DIABETES/NUTRITION [address] [place] [address] [place] [address] 12/05/2024 2:30 PM EDT Office Visit [facility] ADULT DENTAL [address] [place] [address] Hardeep Fontenot, GAVI [address] [place] [address] 01/09/2025 1:30 PM EDT Office Visit [facility] MEDICINE [address] [place] [address] Melinda Krishnan MD [address] [place] [address] 02/03/2025 1:30 PM EDT Telemedicine [facility] MEDICINE [address] [place] [address] Anjana Mendoza RN 05/22/2025 1:00 PM EDT Office Visit [facility] ADULT DENTAL [address] [place] [address] Selma Green [address] [place] [address] documented as of this encounter Visit Diagnoses Diagnosis Pain in left shoulder documented in this encounter Additional Health Concerns Assessment Noted Time PHQ-9 Depression Total Score: 0 11/13/19 23 2:46 PM EDT documented as of this encounter Care Teams Disability Aide Relationship Specialty Start Date End Date Melinda Krishnan MD [address] [place] [address] PCP - General Family Medicine 09/06/20 Rosmery Quiles, Raisa [address] [place] [address] Pharmacist Internal Medicine 02/01/24 documented as of this encounter
--- OUTSIDE RECORDS SUMMARY | 2024-11-25 11:00 | XMS_ITS | Encounter Summary ---
Author Organization [facility] Address [address] [place] [address] Care Team Providers Care Weave Defect Charting Clerk Name Role Phone Sparkle Magallanes MD [facility] Mel[facility] Duff MD Primary Care Provide r Unavailable Encounter Details Date Type Department Care Team Description 02/22/2021 Telephone Adult [address] [address] Sparkle Magallanes MD Social History Tobacco Use Types Packs/Day Years Used Date Smoking Tobacco: Former Smokeless Tobacco: Never Alcohol Use Standard Drinks/Week Comments No 0 (1 standard drink = 0.6 oz pur e alcohol) Sex Assigned at Date Recorded Not on file documented as of this encounter Plan of Treatment Not on file documented as of this encounter Visit Diagnoses Not on filedocumented in this encounter Care Teams Weave Defect Charting Clerk Relationship Specialty Start Date End Date Sparkle Magallanes MD PCP - General Family Practice 10/25/17 4 Melinda Duff MD PCP - General Internal Medicine 03/23/24 documented as of this encounter
--- OUTSIDE RECORDS SUMMARY | 2024-11-25 11:00 | XMS_ITS | Clinical Summary ---
Author Organization [employer] Address [address] [place] [address] Care Team Providers Care Ampoule Filler Name Role Phone Melinda Krishnan MD Primary Care Provide r Rosmery Quiles PharmD Unavailable [phone] Allergies Active Allergy Reactions Criticality Noted Date Comments Codeine Nausea And Vomiting 07/24/2010 Other reaction(s): vomiting Insulin Lispro Nausea And Vomiting 10/31/2013 Other reaction(s): Nausea Oxycodone Nausea And Vomiting 07/24/2010 Other reaction(s): vomiting Medications fluticasone (Flonase) 50 MCG/ACT nasal sprayIndications :Seasonal allergic rhinitis, unspecified trigger Colo 2 spray into both nostrils once a day as needed 48 g 023 Active senna (Senokot) 8.6 MG tablet TAKE 1 TO 2 TABLETS BY MOUTH EVERY EVENING NEEDED FOR CONSTIPATION 180 tablet 3 023 Active Eye Itch Relief 0.025 % ophthalmic solutionIndicati ons:Allergic conjunctivitis of both eyes PLACE 1 DROP IN EACH EYE TWICE DAILY 10 mL 1 023 Active Additional Information Patient not taking.Reported on 01/04/2024 Continuous Blood Gluc Principal Research Economist (Dexcom G7 Principal Research Economist) deviceIndication s:Type 2 diabetes mellitus with hyperglycemia, with long-term current use of insulin ([facility]) USE DIRECTED 1 each 023 Active clopidogrel (Plavix) 75 MG tablet TAKE 1 TABLET BY MOUTH EVERY MORNING (for the heart) 90 tablet 3 024 Active albuterol (Ventolin HFA) 108 (90 Base) MCG/ACT inhalerIndicatio ns:Chronic obstructive pulmonary disease, unspecified COPD type ([facility]) INHALE 2 PUFFS BY MOUTH EVERY 4 HOURS NEEDED SHORTNESS OF BREATH 18 g 1 Active budesonide-formo terol (Symbicort) 160-4.5 MCG/ACT inhalerIndicatio ns:Chronic obstructive pulmonary disease, unspecified COPD type ([facility]) INHALE 2 PUFFS BY MOUTH EVERY MORNING FOR ASTHMA. RINSE MOUTH AFTER USING. 6 g Active docusate sodium (Colace) 100 MG capsule TAKE 2 CAPSULES BY MOUTH EVERY DAY AT BEDTIME Active glucagon (Baqsimi) 3 MG/DOSE nasal powderIndication s:Type 2 diabetes mellitus with hyperglycemia, with long-term current use of insulin ([facility]) Use as directed for severe hypoglycemia. May repeat in 15 minutes if no response. 2 each Active Cinnamon 500 MG tablet PATIENT PURCHASING OTC Active Garlic 1000 MG capsule PATIENT PURCHASING OTC Active Collagen-Vitamin C-Biotin (Collagen 1500/C) 500-50-0.8 MG capsule PATIENT PURCHASING OTC Active glucose (Glutose) 40 % gel oral gelIndications:T ype 2 diabetes mellitus with hyperglycemia, without long-term current use of insulin ([facility]) Take 15 g by mouth if needed for low blood sugar. 45 g Active oxybutynin XL (Ditropan-XL) 5 MG 24 hr tablet Take 1 tablet (5 mg) by mouth Once per day. Do not crush, chew, or split.TAKE 1 TABLET BY MOUTH EVERY EVENING (FOR UTI) 90 tablet 3 Active fluocinolone ([place]-Smoothe) 0.01 % external oilIndications:S eborrheic dermatitis of scalp APPLY TOPICALLY EVERY DAY NEEDED FOR DRY SKIN 118.28 mL Active nitroglycerin (Nitrostat) 0.4 MG SL tablet DISSOLVE 1 TABLET UNDER THE TONGUE EVERY 5 MINUTES NEEDED FOR CHEST PAIN. CALL 911 IF NO RELIEF 100 tablet 1 Active atorvastatin (Lipitor) 80 MG tablet TAKE 1 TABLET BY MOUTH AT BEDTIME (for cholesterol) 90 tablet 3 Active ezetimibe (Zetia) 10 MG tablet TAKE 1 TABLET BY MOUTH EVERY MORNING (for cholesterol) 90 tablet 3 Active metFORMIN (Glucophage) 1000 MG tablet TAKE 1 TABLET BY MOUTH TWICE DAILY IN THE MORNING AND IN THE EVENING WITH MEALS (for diabetes) 180 tablet 3 Active Diclofenac Sodium 1 % gel APPLY 4 GRAMS TOPICALLY TO AFFECTED AREA(S) TWICE DAILY DIRECTED Active lidocaine (Lidoderm) 5 % patch APPLY 1 PATCH TOPICALLY TO SKIN, LEAVE ON FOR 12 HOURS AND OFF FOR 12 HOURS DIRECTED Active melatonin 3 MG tabletIndication s:Insomnia, unspecified type TAKE 1 TABLET BY MOUTH AT BEDTIME 90 tablet 1 Active metoprolol tartrate (Lopressor) 25 MG tablet TAKE 1 TABLET BY MOUTH TWICE DAILY IN THE MORNING AND IN THE EVENING (BLOOD PRESSURE) 180 tablet 1 Active Calcium 600/Vitamin D3 600-20 MG-MCG tablet TAKE 1 TABLET BY MOUTH TWICE DAILY IN THE MORNING AND IN THE EVENING 180 tablet 1 Active Diclofenac Sodium (Voltaren) 1 % gel Use topical BID 100 g 3 Active TRUEplus Lancets 33G miscIndications: Type 2 diabetes mellitus with hyperglycemia (CMS/HCC),intermediate (current) use of insulin ([facility]) TEST BLOOD SUGAR THREE TIMES DAILY DIRECTED 100 each Active FREESTYLE LITE test stripIndications :Type 2 diabetes mellitus with hyperglycemia (CMS/HCC),intermediate (current) use of insulin ([facility]) TEST BLOOD SUGAR THREE TIMES DAILY DIRECTED 100 strip Active Multiple Vitamins-Mineral s (multivitamin with minerals) tablet TAKE 1 TABLET BY MOUTH EVERY MORNING ( VITAMIN) 90 tablet 1 Active pen needle 31G x 5 mm miscIndications: Type 2 diabetes mellitus with hyperglycemia, without long-term current use of insulin ([facility]) Use to administer insulin once daily 100 each 025 2025 Active fexofenadine (Davida) 180 MG tablet TAKE 1 TABLET BY MOUTH EVERY DAY NEEDED FOR ALLERGIES 30 tablet 3 025 Active Continuous Glucose Sensor (Wallarmcom G7 Sensor) miscIndications: Type 2 diabetes mellitus with hyperglycemia, with long-term current use of insulin ([facility]) USE DIRECTED TO TEST BLOOD SUGAR THREE TIMES DAILY. CHANGE EVERY 10 DAYS 3 each 2 025 Active hydrocortisone 2.5 % cream APPLY TOPICALLY TWICE A DAY 20 g 2 025 Active acetaminophen (Tylenol) 325 MG tablet TAKE 2 TABLETS BY MOUTH EVERY 6 HOURS NEEDED FOR FEVER 025 Active ibuprofen 600 MG tablet TAKE 1 TABLET BY MOUTH THREE TIMES DAILY NEEDED FOR FEVER Active glipiZIDE (Glucotrol) 5 MG tabletIndication s:Type 2 diabetes mellitus with hyperglycemia, without long-term current use of insulin (CMS/HCC) Take one tablet by mouth once daily before largest meal of day. Do not take if skipping meal. 90 tablet 025 Active insulin glargine (Lantus SoloStar) 100 UNIT/ML penIndications:T ype 2 diabetes mellitus with hyperglycemia, without long-term current use of insulin ([facility]) INJECT 12 UNITS SUBCUTANEOUSLY ONCE DAILY. 025 Active ketoconazole (NIZOral) 2 % shampooIndicatio ns:Seborrheic dermatitis APPLY TO THE AFFECTED AREA(S) TOPICALLY TWICE A WEEK 120 mL 1 025 Active fluocinolone ([place]-Smoothe) 0.01 % external oilIndications:S eborrheic dermatitis Apply topically 3 times daily. 118.28 mL 1 025 2025 Active Alcohol Swabs (Alcohol Prep) 70 % padsIndications: Type 2 diabetes mellitus with other specified complication, unspecified whether buttermaker continuous churn insulin use ([facility]) USE DIRECTED 2 TO 4 TIMES DAILY 100 each 11 025 Active Trulicity 4.5 MG/0.5ML solution auto-injectorInd ications:Type 2 diabetes mellitus with hyperglycemia, without long-term current use of insulin ([facility]) INJECT ONE PEN (= 4.5MG) SUBCUTANEOUSLY ONCE A WEEK DIRECTED 2 mL 3 025 Active Blood Pressure kitIndications:E ssential hypertension Use as directed 1 kit 024 2024 Discontinued(M ed list cleanup (will not trigger notification to Pharmacy)) Alcohol Swabs (Alcohol Prep) 70 % padsIndications: Type 2 diabetes mellitus with other specified complication, unspecified whether buttermaker continuous churn insulin use (CMS/[facility]) USE TO TEST BLOOD SUGAR 2-4 TIMES DAILY 100 each 1 025 2024 Discontinued Trulicity 4.5 MG/0.5ML solution auto-injectorInd ications:Type 2 diabetes mellitus with hyperglycemia, without long-term current use of insulin ([facility]) INJECT ONE PEN (= 4.5MG) SUBCUTANEOUSLY ONCE A WEEK DIRECTED 2 mL 1 025 2024 Discontinued traMADol (Ultram) 50 MG tabletIndication s:Chronic right shoulder pain Take 1 tablet (50 mg) by mouth every 8 (eight) hours if needed for severe pain for up to 28 days. 84 tablet 025 2024 Active Problems Problem Noted Date Diagnosed Date Staining of teeth 11/08/2024 Advanced periodontitis 05/06/2024 Missing teeth, acquired 05/06/2024 Severe generalized gingival recession 05/06/2024 Xerostomia 05/06/2024 Unstable gait 03/25/2024 Assessment & Plan (03/25/2024 3:51 PM EDT): She uses roller walker I will order for patient replacement for life alert system O2 dependent 03/25/2024 Assessment & Plan (03/25/2024 3:52 PM EDT): Continue to follow with pulmonary I will order for patient replacement for life alert system Left foot pain 03/16/2024 Assessment & Plan (03/25/2024 3:51 PM EDT): Patient referred to podiatry I will order for patient replacement for life alert system Difficulty in walking 12/29/2023 Assessment & Plan (12/29/2023 11:35 AM EDT): Patient with many factors that difficult her ambulation including severe COPD, polyarthralgia, lower back pain, bilateral leg pain due to varicose veins, I will prescribed for her a roller walker with seat Pain due to varicose veins of both lower extremi ties 12/16/2023 Assessment & Plan (03/16/2024 3:52 PM EDT): I will prescribed compression stockings only calf (up to knee) 15-20mmhg Encounter for screening mamm ogram for malignant neoplasm of breast 12/16/2023 Right foot pain 08/31/2023 Bilateral carpal tunnel syndrome 08/31/2023 Assessment & Plan (09/01/2023 1:13 PM EST): Bilateral wrist braces will be prescribed Benign nevus 08/31/2023 Rash 01/26/2023 Seborrheic dermatitis 11/12/2022 Assessment & Plan (11/12/2022 4:28 PM EDT): Ketoconazole shampoo prescribed today Tinnitus of left ear 11/12/2022 Type 2 diabetes mellitus wit h hyperglycemia, with long-term current use of insulin 11/12/2022 Assessment & Plan (10/21/2024 3:19 PM EDT): Diabetes is: controlled - Lab Results Component Value Date HGBA1C 7.7 (A) 08/29/2024 HGBA1C 9.0 (A) 06/03/2024 HGBA1C 9.0 (A) 03/16/2024 - Lab Results Component Value Date MICROALBUR 32.0 06/28/2024 CREATININE 0.74 06/28/2024 -Changes: None - Diabetic eye exam: Pending - Diabetic foot exam: Referral done - Continue lifestyle modifications - Continue current medications - Follow up: 3 months Assessment & Plan (03/16/2024 4:03 PM EDT): Diabetes is: not controlled - Lab Results Component Value Date HGBA1C 9.0 (A) 03/16/2024 HGBA1C 9.1 (A) 12/16/2023 HGBA1C 11.8 (A) 08/31/2023 - Lab Results Component Value Date MICROALBUR <5.0 04/28/2023 CREATININE 0.69 04/29/2023 -Changes: f/u with CDTM - Diabetic exam: up to date - Diabetic foot exam:referral today - Continue lifestyle modifications - Continue current medications - Follow up: 3 months Assessment & Plan (12/17/2023 10:56 AM EDT): Diabetes is: not controlled but improved - Lab Results Component Value Date HGBA1C 9.1 (A) 12/16/2023 HGBA1C 11.8 (A) 08/31/2023 HGBA1C 10.7 (A) 04/28/2023 - Lab Results Component Value Date MICROALBUR <5.0 04/28/2023 CREATININE 0.69 04/29/2023 -Changes: I will go up on her trulicity today, patient also has dexcom but she has being struggling with this I will also refer her to [facility] for management of chronic condition - Diabetic eye exam:patient has upcoming appointment - Diabetic foot exam:up to date - Continue lifestyle modifications - Continue current medications - Follow up: 3 months Assessment & Plan (10/30/2023 2:14 PM EDT): Diabetes is: not controlled - Lab Results Component Value Date HGBA1C 11.8 (A) 08/31/2023 HGBA1C 10.7 (A) 04/28/2023 HGBA1C 9.1 (A) 01/26/2023 - Lab Results Component Value Date MICROALBUR <5.0 04/28/2023 CREATININE 0.69 04/29/2023 -Changes: none - Diabetic eye exam:upcoming appointment - Diabetic foot exam:up to date - Continue lifestyle modifications - Continue current medications - Follow up: 3 months Assessment & Plan (09/01/2023 1:17 PM EST): Worsening A1c - Lab Results Component Value Date HGBA1C 11.8 (A) 08/31/2023 HGBA1C 10.7 (A) 04/28/2023 HGBA1C 9.1 (A) 01/26/2023 - Lab Results Component Value Date MICROALBUR <5.0 04/28/2023 CREATININE 0.69 04/29/2023 - Diabetic eye exam:patient reports sh e is up to date - Diabetic foot exam: referral to podiatry done Extensive counseling about diabetic diet done I will try trulicity 0.75mg weekly Patient referred to endocrinology ( patient is on insulin, on CMG, she has being refer before to cmm programmer and avionics repair technician without positive outcomes) - Assessment & Plan (04/28/2023 3:11 PM EDT): - Lab Results Component Value Date HGBA1C 10.7 (A) 04/28/2023 HGBA1C 9.1 (A) 01/26/2023 HGBA1C 9.3 (A) 11/12/2022 - Lab Results Component Value Date CREATININE 0.81 12/27/2022 - - Diabetic eye exam: up to date - Diabetic foot exam: pending - Continue lifestyle modifications -I went up on lantus to 14 U daily she will split the dose 7U at night and 7U am Assessment & Plan (01/28/2023 3:01 PM EDT): Patient stopped taking ozempic she refuses to take it again, she read that it could cause cancer, extensive explanation done, she continues to refuse she will like to on lantus again I started her on lantus 12U at bed time Assessment & Plan (11/12/2022 4:27 PM EDT): A1c 9 - Lab Results Component Value Date CREATININE 0.75 12/18/2021 - - Diabetic eye exam: up to date - Diabetic foot exam: pending next appointment - Continue lifestyle modifications -I increase her ozempic to 2mg weekly -Seo Manager referral today after possible referral to endocrinology Allergic conjunctivitis of both eyes 11/12/2022 Chronic eczema 11/07/2022 Chronic obstructive lung disease 11/07/2022 COVID-19 11/07/2022 Insomnia 11/07/2022 Leukocytosis 11/07/2022 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 Chronic right shoulder pain 11/07/2022 Assessment & Plan (10/21/2024 3:18 PM EDT): Patient is due for her tramadol refill elevated today, I explained to her she needs to be under LAB SPECIALIST and rules applies for everyone and I advised to count ahead of time her pills before her call Urge incontinence of urine 11/07/2022 Visual impairment 11/07/2022 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 Initial goal of 30 min walk 3-5x/week. Increase as tolerated. - low-sodium diet (goal: <2g/day) and heart healthy diet such as DASH to reduce BP and prevent ASCVD. - Home BP monitoring 1-2 x day with goal of <140/90. - Seek immediate medical attention for chest pain, palpitations, SOB, syncope, or sudden changes in mental status. - Do not change or discontinue current prescriptions without first consulting health care provider Depression 06/13/2017 Asthma 05/25/2017 Multiple pulmonary nodules 05/25/2017 Left lower quadrant pain 05/27/2016 Obesity 08/30/2015 Allergic rhinitis 08/30/2015 Mixed hyperlipidemia 08/30/2015 Essential hypertension 08/30/2015 Assessment & Plan (10/21/2024 3:20 PM EDT): Blood pressure seems to be under control advised to continue with same medication regimen and low-sodium diet Assessment & Plan (03/16/2024 4:02 PM EDT): Maintenance: BMP: up to date Lipid Panel: up to date ASCVD Risk: high on atorvastatin 80mg daily - Aerobic exercise to reduce BP. Initial goal of 30 min walk 3-5x/week. Increase as tolerated. - low-sodium diet (goal: <2g/day) and heart healthy diet such as DASH to reduce BP and prevent ASCVD. - Home BP monitoring 1-2 x day with goal of <140/90. - Seek immediate medical attention for chest pain, palpitations, SOB, syncope, or sudden changes in mental status. - Do not change or discontinue current prescriptions without first consulting health care provider Assessment & Plan (10/30/2023 2:12 PM EDT): - Aerobic exercise to reduce BP. Initial goal of 30 min walk 3-5x/week. Increase as tolerated. - low-sodium diet (goal: <2g/day) and heart healthy diet such as DASH to reduce BP and prevent ASCVD. - Home BP monitoring 1-2 x day with goal of <140/90. - Seek immediate medical attention for chest pain, palpitations, SOB, syncope, or sudden changes in mental status. - Do not change or discontinue current prescriptions without first consulting health care provider Assessment & Plan (09/01/2023 1:14 PM EST): Maintenance: BMP: up to date Lipid Panel: up to date ASCVD Risk: high risk on atorvastatin 80mg and clopidogrel 75mg daily - Aerobic exercise to reduce BP. Initial goal of 30 min walk 3-5x/week. Increase as tolerated. - low-sodium diet (goal: <2g/day) and heart healthy diet such as DASH to reduce BP and prevent ASCVD. - Home BP monitoring 1-2 x day with goal of <140/90. - Seek immediate medical attention for chest pain, palpitations, SOB, syncope, or sudden changes in mental status. - Do not change or discontinue current prescriptions without first consulting health care provider Assessment & Plan (04/28/2023 3:09 PM EDT): - Aerobic exercise to reduce BP. Initial goal of 30 min walk 3-5x/week. Increase as tolerated. - low-sodium diet (goal: <2g/day) and heart healthy diet such as DASH to reduce BP and prevent ASCVD. - Home BP monitoring 1-2 x day with goal of <140/90. - Seek immediate medical attention for chest pain, palpitations, SOB, syncope, or sudden changes in mental status. - Do not change or discontinue current prescriptions without first consulting health care provider Assessment & Plan (11/12/2022 4:26 PM EDT): Maintenance: BMP: up to date Lipid Panel: up to date - Aerobic exercise to reduce BP. Initial goal of 30 min walk 3-5x/week. Increase as tolerated. - low-sodium diet (goal: <2g/day) and heart healthy diet such as DASH to reduce BP and prevent ASCVD. - Home BP monitoring 1-2 x day with goal of <140/90. - Seek immediate medical attention for chest pain, palpitations, SOB, syncope, or sudden changes in mental status. - Do not change or discontinue current prescriptions without first consulting health care provider Mild intermittent asthma 08/30/2015 Osteopenia 08/30/2015 Stable angina 08/30/2015 Vitamin D deficiency 08/30/2015 Encounters Date Type Department Care Team Description 11/21/2024 Refill [facility] MEDICINE [address] [place] [phone] Rosmery Quiles PharmD Type 2 diabetes mellitus with hyperglycemia, without long-term current use of insulin ([facility]) 11/08/2024 3:00 PM EDT Office Visit [facility] ADULT DENTAL [address] [place] [phone] [place] Green Xerostomia (Primary Dx); Missing teeth, acquired; Severe generalized gingival recession; Staining of teeth 11/04/2024 2:15 PM EDT Immunization [facility] MEDICINE [address] [place] [phone] Velma Pena RN Encounter for immunization 11/04/2024 1:30 PM EDT Clinical Support [facility] DIABETES/NUTRITION [address] [place] [phone] Type 2 diabetes mellitus with hyperglycemia, with long-term current use of insulin ([facility]) (Primary Dx) 11/04/2024 Telephone [facility] MEDICINE [address] [place] [phone] Appointment Confirmation 11/04/2024 Travel 10/31/2024 Travel 10/28/2024 Refill [facility] MOBILE VACCINE CLINIC [address] [place] [phone] Name, MD Willie Type 2 diabetes mellitus with other specified complication, unspecified whether senior care insulin use (CMS/HCC) 10/21/2024 11:30 AM EDT Office Visit [facility] MEDICINE [address] [place] [phone] Melinda Krishnan MD Type 2 diabetes mellitus with hyperglycemia, with long-term current use of insulin ([facility]) (Primary Dx); Hypotension, unspecified hypotension type; Type 2 diabetes mellitus with hyperglycemia, without long-term current use of insulin (CMS/HCC); Seborrheic dermatitis; Chronic right shoulder pain; Essential hypertension 10/21/2024 Travel 10/17/2024 2:40 PM EDT Office Visit [facility] WALK-IN CENTER [address] [place] [phone] Flakita Fitzgerald ANP Hypotension, unspecified hypotension type (Primary Dx) 10/17/2024 Telephone [facility] MEDICINE [address] [place] [phone] Melinda Krishnan MD nurse triage 10/17/2024 Travel 10/11/2024 Patient Outreach [address] [phone] Melinda Krishnan MD Pre-visit Planning (SDOH screening negative and tobacco screening negative) 10/07/[address] [phone] Rosmery Quiles PharmD Pt status check 10/05/2024 Travel 09/28/[address] [phone] Melinda Krishnan MD Med Refill 09/28/2024 Refill [facility] MEDICINE [address] [place] [address] [phone] Melinda Krishnan MD Type 2 diabetes mellitus with hyperglycemia, with long-term current use of insulin ([facility]) 09/26/2024 Refill [facility] MEDICINE [address] [place] [phone] Rosmery Quiles PharmD Type 2 diabetes mellitus with hyperglycemia, without long-term current use of insulin ([facility]) 09/05/2024 2:00 PM EST Clinical Support [facility] DIABETES/NUTRITION [address] [place] [phone] Type 2 diabetes mellitus with hyperglycemia, with long-term current use of insulin ([facility]) (Primary Dx) 09/05/2024 Travel 09/02/2024 10:30 AM EST Telemedicine [facility] MEDICINE [address] [place] [address] Anjana Mendoza, briquetter operator right shoulder pain 09/02/2024 Telephone [facility] MEDICINE [address] [place] [address] Anjana Mendoza, RN LAB SPECIALIST Renewal today 09/02/2024 Travel 09/02/2024 Telephone [facility] MEDICINE [address] [place] [address] Anjana Mendoza, RN Recommend LAB SPECIALIST Tele Tier 2 08/31/2024 Refill [facility] MEDICINE [address] [place], [place] [phone] Melinda Krishnan MD 08/29/2024 Travel from Last 3 Months Immunizations Name Administration Dates Next Due Hep B, adult 02/17/2017,09/23/2016,08/20/2016 Influenza High-dose Quadriva lent Preservative Free 04/28/2023,04/27/2022,04/10/2021,04/08 Influenza injectable quadriv alent IIV4 with preservative 04/29/2016,04/10/2015 Influenza injectable quadriv alent preservative free 04/25/2019,05/02/2017 Influenza, High Dose Seasona l, Preservative Free 04/08/2018 Influenza, IIV3, injectable 04/11/2014, 1 Influenza, Split (incl. dustin fied surface antigen) 04/05/2013,04/30/2012 Influenza, trivalent, adjuvanted 04/20/2024 Moderna Covid-19 Vaccine 12+ 12/10/2021 Pfizer Covid-19 Vaccine 12+ 11/04/2024, 4 Pneumococcal Conjugate PCV 13 04/05/2015 Pneumococcal Polysaccharide PPSV23 03/13/2011, Pneumococcal, Unspecified 04/09/2000 RSV Bivalent 09/03/2023 TD (adult), 2 Lf tetanus tox oid, preservative free, adsorbed 12/16/2023,10/24/2003,06/26/1992 Tdap 08/19/2012 Zoster, Recombinant 02/10/2022,12/09/2021 Zoster, live 04/11/2013 Social History Tobacco Use Types Packs/Day Years Used Date Smoking Tobacco: Never Passive Smoke Exposure: Never Smokeless Tobacco: Never Tobacco Cessation:Counseling Given: Not Answered Alcohol Use Standard Drinks/Week Comments Never 0 [...] is your housing situation today? I have anupamadee vann 05/11/[address] you [...] not to disclose 2021 10:14 AM EDT Last Filed Vital Signs Vital Sign Reading Time Taken Comments Blood Pressure 114/68 11/08/2024 2:49 PM EDT Pulse 90 10/31/2024 1:47 PM EDT Temperature 36.4 ??C (97.6 ??F) 10/21/2024 12:11 PM E DT Respiratory Rate 15 10/21/2024 12:11 PM EDT Oxygen Saturation 96% 10/21/2024 12:11 PM EDT Inhaled Oxygen Concentration - - Weight 59.4 kg (131 lb) 11/07/2024 3:54 PM EDT Height 154.9 cm (5' 1 ) 11/07/2024 3:54 PM EDT Body Mass Index 24.75 11/07/2024 3:54 PM EDT Plan of Treatment Upcoming Encounters Date Type Department Care Team (Late st Contact Info) Description 12/02/2024 1:30 PM EDT Clinical Support [facility] DIABETES/NUTRITION [address] [place] [address] [place] [address] 12/05/2024 2:30 PM EDT Office Visit [facility] ADULT DENTAL [address] [place] [address] Hardeep Fontenot DMD [address] [place] [address] 01/09/2025 1:30 PM EDT Office Visit [facility] MEDICINE [address] [place] [phone] Melinda Krishnan MD [address] [place] [address] 02/03/2025 1:30 PM EDT Telemedicine [facility] MEDICINE [address] [place] [phone] Anjana Mendoza, NARA 05/22/2025 1:00 PM EDT Office Visit [facility] ADULT DENTAL [address] [place] [address] [address] [place] [address] Health Maintenance Due Date Last Done Comments Diabetes: Foot Exam 12/02/1950 Eye Exam 12/02/1949 Dental Oral Exam 11/05/2024 05/06/2024, 01/22/2023 Diabetes: Hemoglobin A1C 11/26/2024 025, 06/03/2024, 03/16/2024, Additional history exists Mammogram 01/28/2025 01/29/2024, 12/26, 01/20/2023, Additional history exists Lipid Panel 02/22/2025 02/23/2024, 10/2022, 12/18/2021, Additional history exists Alcohol/Substance Use Screening 03/16/2025 03/16/2024 Depression Screening 03/16/2025 03/16/2024, 03/16/20 Dental X-Ray: Bitewings 05/07/2025 05/06/2024, 01/22 Dental Prophylaxis 05/11/2025 11/08/2024, 05/06/2024 Diabetes: Urine Protein Screening 06/28/2025 06/28/2024, 06/20/2024, 04/28/2023, Additional history exists SDOH Screening 10/11/2025 10/11/2024 Tobacco Screening 11/08/2025 11/08/2024 Dental X-Ray: Full Mouth 01/23/2026 01/22/2023 DTaP/Tdap/Td Vaccines (3 - Td or Tdap) 12/15/2033 12/16/2023, 08/19/2012, 10/24/2003, Additional history exists Pneumococcal Vaccine: 50+ Years Completed 04/05/2015, 03/13/2011, 04/09/2000, Additional history exists Hepatitis B Vaccines Completed 02/17/2017, 09/23/2016, 08/20/2016 Zoster Vaccines Completed 02/10/2022, 11/24, 04/11/2013 RSV Patients and Patients Aged 60 years or older Completed 09/03/2023 Influenza Vaccine Completed 04/20/2024, , 04/27/2022, Additional history exists COVID-19 Vaccine Completed 11/04/2024, , 12/10/2021, Additional history exists HIB Vaccines Aged Out [...] patient's age to complete this topic Meningococcal Vaccine Aged Out No kiarra aileen eligible based on patient's age to complete this topic RSV under 20 months Aged Out No longe r eligible based on patient's age to complete this topic Rotavirus Vaccines Aged Out No longer eligible based on patient's age to complete this topic Goals Goal Patient Goal Type Associated Problems Recent Progress Patient-Stated? Author Hemoglobin A1c < 8 Result Component 7.7( 2:01 PM EST) No Danielle Sharma Record your blood sugar as directed Result Component No Danielle Sharma Procedures Procedure Name Priority Date/Time Associated Diagnosis Comments CASE PRESENTATION, DETAILED AND EXTENSIVE TREATMENT PLANNING Routine 11/08/2024 3:00 PM EDT Xerostomia Missing teeth, acquired Severe generalized gingival recession Staining of teeth ORAL HYGIENE INSTRUCTIONS Routine 11/08/2024 3:00 PM EDT Xerostomia Missing teeth, acquired Severe generalized gingival recession Staining of teeth TOPICAL APPLICATION OF FLUORIDE VARNISH Routine 11/08/2024 3:00 PM EDT Xerostomia Missing teeth, acquired Severe generalized gingival recession Staining of teeth PROPHYLAXIS - ADULT Routine 11/08/2024 3 :00 PM EDT Xerostomia Missing teeth, acquired Severe generalized gingival recession Staining of teeth POCT GLUCOSE Routine 10/21/2024 12:12 PM EDT Type 2 diabetes mellitus with hyperglycemia, without long-term current use of insulin ([facility]) POCT GLYCATED HEMOGLOBIN, TOTAL Routine 08/29/2024 2:01 PM EST Type 2 diabetes mellitus with hyperglycemia, without long-term current use of insulin ([facility]) ALBUMIN, RANDOM URINE W/CREATININE Routine 06/28/2024 11:15 AM EST BITEWINGS - 2 RADIOGRAPHIC IMAGES Routine 05/06/2024 10:00 AM EDT Missing teeth, acquired Severe generalized gingival recession PERIODIC ORAL EVALUATION - ESTABLISHED PATIENT Routine 05/06/2024 9:00 AM EDT LIPID PANEL, STANDARD Routine 02/23/2024 9:23 AM EDT BI MAMMOGRAM SCREENING TOMOSYNTHESIS BILATERAL Routine 01/29/2024 1:13 PM EDT INTRAORAL - COMPLETE SERIES OF RADIOGRAPHIC IMAGES Routine 01/22/2023 10:00 AM EDT from Last 3 Months or Most Recently Relevant to Health Maintenance Results * (ABNORMAL) POCT Glucose (10/21/2024 12:12 PM EDT) Glucose Blood, POC 257(A) 60 - 200 mg/dL QC Media Lot # [id number] Lot# Expiration Date Blood Capillary blood specimen / Unknown 10/21/2024 12:12 PM EDT Melinda Reza MD POINT OF CARE TEST EN TER/EDIT ORDERABLES Final Result * (ABNORMAL) POCT HGB A1C (08/29/2024 2:01 PM EST) Hemoglobin A1C 7.7(A) 4.0 - 6.0 % QC Media Lot # [id number] Lot# Expiration Date ,026 Blood 08/29/2024 2:01 PM EST Melinda Reza MD POINT OF CARE TEST EN TER/EDIT ORDERABLES Final Result * Albumin, Random Urine W/Creatinine (06/28/2024 11:15 AM EST) Creatinine, Urine 116.10 mg/dL [facility] Microalbumin Urine 32.0 mg/L [facility] Microalbum Creatinine Ratio Ur 27.5 <30 ug/mg cr [facility] Comment:Albumin/Creatinine R atio Reference Ranges: Normal: < 30 ug/mg creatinine Microalbuminuria: 30 - 300 ug/mg creatinineClinical Albuminuria: > 300 ug/mg creatinine 06/28/2024 11:1 5 AM EST 06/28/2024 1:06 PM EST us Melinda Reza MD LAB URINE ORDERABLES Final Result Performing Organization Address [facility] [[email or web address]] Co de Phone Number [facility] [address] [place] [phone] * (ABNORMAL) Lipid Panel, Standard (02/23/2024 9:23 AM EDT) Triglycerides 67 <150 mg/dL [facility] Comment:Desirable Triglyceri de: less than 150 mg/dLBorderline High Triglyceride 150-199 mg/dLHigh Triglyceride: 200-499 mg/dLVery High Triglyceride: greater than or equal to 5OO mg/dL Cholesterol 180 <200 mg/dL [facility] Comment:Desirable Cholestero l: less than 200 mg/dLBorderline High Cholesterol: 200-239 mg/dLHigh Cholesterol: greater than 239 mg/dL LDL Cholesterol Calculated 108(H) <100 mg/dL [facility] Comment:Desirable LDL: less than 100 mg/dLNear Optimal/Above Optimal LDL: 110- 129 mg/dLBorderline High LDL: 130-159 mg/dLHigh LDL: 160-189 mg/dLVery High LDL: greater than or equal to 190 mg/dL HDL Cholesterol 59 >40 mg/dL [facility] Comment:Desirable HDL: great er than 40 mg/dL Note: This HDL assay may give artificially low results in patients with liver disease. 02/23/2024 9:23 AM EDT 02/23/2024 11:20 AM EDT us Melinda Reza MD LAB BLOOD ORDERABLES Final Result Performing Organization Address [facility]/ZIP Co de Phone Number [facility] [address] [place] [phone] * BI Mammogram Screening Tomosynthesis Bilateral (01/29/2024 1:13 PM EDT) Anatomical Region Laterality Modality Breast Bilateral Mammography 01/29/2024 1:13 PM EDT Narrative 02/16/2024 9:00 PM EDT ? [place] [facility] ? [address] ?[place], [place] [address] ? Mammography Report ? Signed ? Patient: Varghese,Ana ?MR#: [id number] ?? [birth year] ? : 1940 ?Acct:[id number] ? Age/Sex: 83 / F ?ADM Date: 01/29/24 ? Loc: HO.MAMMO ? Attending Dr: Melinda Reza MD ? Ordering Physician: Melinda Krishnan MD ?Results: 0Incomplete: Needs Additional Imaging ?? Evaluation ? Date of Service: 01/29/24 ?Follow Up: Additional Imagi ?? ng ? Procedure(s): MM tomosynthesis screening BI ?? Accession Number(s): [id number] ? cc: Melinda Krishnan MD ? EXAMINATION: ?? MM SCREENING DIGITAL BREAST TOMOSYNTHESIS, BILATERAL ? CLINICAL INFORMATION: ? Screening. Asymptomatic. ? COMPARISON: ?? Mammography: This study is compared with prior exams dating back to ?? 2018. ? TECHNIQUE: ?? Digital breast tomosynthesis is performed in both the craniocaudal and ?? mediolateral oblique views along with computer-aided detection (CAD). ?? Synthesized 2D images are generated from the tomosynthesis. ? FINDINGS: ?? There are scattered areas of fibroglandular density (ACR BI-RADS breast ?? composition Category b). ? In the 9:00 region of the left breast, at a middle depth, there is an ?? asymmetry which warrants additional mammographic and targeted ?? sonographic imaging. ?? In the right breast, there are no significant masses, abnormal ?? calcifications, or other abnormalities. ? Scattered, bilateral, benign calcifications are present. ? MM/MM tomosynthesis screening BI ?? IMPRESSION: ? Asymmetry of the left breast warrants additional mammographic and ?? targeted sonographic imaging. ? It is requested that skin markers in place on any prior surgical scars ?? in the left breast for all the diagnostic mammographic images. ? No mammographic evidence of malignancy right breast. ? ASSESSMENT: ? BI-RADS BI-RADS 0 - Incomplete: Needs additional Imaging. ? RECOMMENDATION: ?? 1. Additional views of the left. ?? 2. Targeted ultrasound if warranted after review of the additional ?? views. ?? 3. Radiology department staff will contact the patient for additional ?? imaging. ? Additional Imaging required ? This examination should not preclude the clinical evaluation of a ?? suspicious palpable abnormality. ? This patient's information was entered into a reminder system with a ?? target due date for their next mammogram. ? Dictated By: ?Liv Calhoun MD ? Signed By: ?<Electronically signed by Liv Calhoun MD in OV> ? 02/16/242055 ? DD/ 12 ? TD/TT: ? Caustic Room Operator: ? Procedure Note Yoselin Ruiz - 02/16/2024 [facility] [address] [place] [address] Dr. [place], [place] [address] Mammography Report Signed Patient: Donya Varghese#: [id number] [birth year] : 1940Acct:[id number] Age/Sex: 83 / FADM Date: 01/29/24 Loc: HOHardikMAMMO Attending Dr: Melinda Reza MD Ordering Physician: Melinda Krishnan MD Results: 0Incomplete: Needs Additional Imaging Evaluation Date of Service: 01/29/24Follow Up: Additional Imagi ng Procedure(s): MM tomosynthesis screening BI Accession Number(s): [id number] cc: Melinda Krishnan MD EXAMINATION: MM SCREENING DIGITAL BREAST TOMOSYNTHESIS, BILATERAL CLINICAL INFORMATION: Screening. Asymptomatic. COMPARISON: Mammography: This study is compared with prior exams dating back to 2018. TECHNIQUE: Digital breast tomosynthesis is performed in both the craniocaudal and mediolateral oblique views along with computer-aided detection (CAD). Synthesized 2D images are generated from the tomosynthesis. FINDINGS: There are scattered areas of fibroglandular density (ACR BI-RADS breast composition Category b). In the 9:00 region of the left breast, at a middle depth, there is an asymmetry which warrants additional mammographic and targeted sonographic imaging. In the right breast, there are no significant masses, abnormal calcifications, or other abnormalities. Scattered, bilateral, benign calcifications are present. MM/MM tomosynthesis screening BI IMPRESSION: Asymmetry of the left breast warrants additional mammographic and targeted sonographic imaging. It is requested that skin markers in place on any prior surgical scars in the left breast for all the diagnostic mammographic images. No mammographic evidence of malignancy right breast. ASSESSMENT: BI-RADS BI-RADS 0 - Incomplete: Needs additional Imaging. RECOMMENDATION: 1. Additional views of the left. 2. Targeted ultrasound if warranted after review of the additional views. 3. Radiology department staff will contact the patient for additional imaging. Additional Imaging required This examination should not preclude the clinical evaluation of a suspicious palpable abnormality. This patient's information was entered into a reminder system with a target due date for their next mammogram. Dictated By: Liv Calhoun MD Signed By: <Electronically signed by Liv Calhoun MD in OV> 02/16/242055 DD/ 1313 TD/TT: Caustic Room Operator: Melinda Reza MD IMG BI PROCEDURES Fin al Result from Last 3 Months or Most Recently Relevant to Health Maintenance Insurance [facility] (O D-SNP) [place] [id number] [facility] Care Teams Ampoule Filler Relationship Specialty Start Date End Date Melinda Krishnan MD [address] [place] [address] PCP - General Family Medicine 09/06/20 Rosmery Quiles, HopeD [address] [place] [address] Pharmacist Internal Medicine 02/01/24
--- OUTSIDE RECORDS SUMMARY | 2024-11-25 11:00 | XMS_ITS | Encounter Summary ---
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 Name Role Phone Melinda Krishnan MD Primary Care Provide r Rosmery Quiles PharmD Unavailable [phone] Reason for Visit * Reason Onset Date Comments Med Refill 08/17/2024 Encounter Details Date Type Department Care Team ([facility] st Contact Info) Description 08/17/2024 Telephone [facility] MEDICINE [address] [place] [address] Melinda Krishnan MD [address] [place] [address] Med Refill Social History Tobacco Use Types [...] the past 12 months, has t he [employer], gas, oil or water company threatened to [...] Telephone Encounter - Jimena West LPN - 08/17/2024 10:04 AM EST Medication was sent to [facility] Pharmacy on 08/14/24. * Telephone Encounter - Alden Degroot - 08/17/2024 9:52 AM EST TC from pt requesting medication refill. Medications needing refill : glipiZIDE (Glucotrol) 5 MG tablet To be sent to: [facility] pharmacy documented in this encounter Plan of Treatment Upcoming Encounters Date Type Department Care Team (Late st Contact Info) Description 12/02/2024 1:30 PM EDT Clinical Support [facility] DIABETES/NUTRITION [address] [place], [place] [phone] [place], [place] [phone] 12/05/2024 2:30 PM EDT Office Visit [facility] ADULT DENTAL [address] [place] [address] Hardeep Fontenot, DMD [address] [place] [address] 01/09/2025 1:30 PM EDT Office Visit [facility] MEDICINE [address] [place] [address] Melinda Krishnan MD [address] [place] [address] 02/03/2025 1:30 PM EDT Telemedicine [facility] MEDICINE [address] [place] [address] Anjana Mendoza RN 05/22/2025 1:00 PM EDT Office Visit [facility] ADULT DENTAL [address] [place] [address] [address] [place] [address] documented as of this encounter Goals Goal [...] documented as of this encounter Care Teams Trash Collector Truck Driver Relationship Specialty Start Date End Date Melinda Krishnan MD [address] [place] [phone] PCP - General Family Medicine 09/06/20 Rosmery Quiles, HopeD [address] [place] [phone] Pharmacist Internal Medicine 02/01/24 documented as of this encounter
== END 2024-11-25 10:30 | disposition home or self-care (01) ==
LOC: HO.HPS 10:01
PROVIDERS: PCP Internal Medicine; Visit Provider Hospitalist
DX: J40 Bronchitis, not specified as acute or chronic (principal); J96.11 Chronic respiratory failure with hypoxia; J41.0 Simple chronic bronchitis; I82.593 Chronic embolism and thrombosis of other specified deep vein of lower extremity, bilateral; R91.1 Solitary pulmonary nodule
CPT/HCPCS: 99214; G2211

== ENCOUNTER → 2024-11-25 10:00 | Outpatient (BNVA) | payer OTHER, SELFPAY | PROVIDERS: PCP Internal Medicine; Visit Provider Hospitalist | DX: J41.0 Simple chronic bronchitis (principal); J96.11 Chronic respiratory failure with hypoxia; I82.593 Chronic embolism and thrombosis of other specified deep vein of lower extremity, bilateral; R91.1 Solitary pulmonary nodule; Z99.81 Dependence on supplemental oxygen | CPT/HCPCS: 99212 ==

== ENCOUNTER 2025-02-15 09:33 | Outpatient (AMB) | payer OTHER, SELFPAY ==
--- NOTE | 2025-02-15 09:39 | A.OFFVIS_ITS ---
Vital Signs 02/15/25 09:46 Height 5 ft 1 in Weight 131 lb BMI 24.7 BP 108/53 L Blood Pressure Location Rt brachial Position Sitting Pulse 103 H Intake Visit Reasons: lipoma (R) side mid back Intake Note: Patient referred by pcp Dr. Villa for lipoma on Rt mid back. Present for over 3yrs. Patient c/o: enlarging. denies pain. Elementary Reading Tutor Required: Yes Accompanied by: Self / Same As Patient Allergies codeine (Codeine) Allergy (Mild, Verified 02/15/25 09:45) DIZZINESS, VOMITING insulin lispro (INSULIN LISPRO) Allergy (Unknown, Verified 02/15/25 09:45) NAUSEA & VOMITING oxycodone (OXYCODONE) Allergy (Unknown, Verified 02/15/25 09:45) NAUSEA & VOMITING Medication List - Last Reconciled 02/15/25 by Alton Adames MD albuterol sulfate 90 mcg/actuation 90 mcg inhalation Q4H PRN alcohol swabs (Alcohol Prep Pads) 1 pad topical QID atorvastatin 80 mg PO BEDTIME blood sugar diagnostic (FreeStyle Lite Strips) As directed..Test blood sugar 3x per day. budesonide-formoterol 160-4.5 mcg/actuation (Symbicort) inhalation calcium carbonate-vitamin D3 600 mg-20 mcg (800 unit) 0 tabs PO clopidogrel 75 mg PO DAILY dextromethorphan HBr 30 mg (2 x 15 mg) PO Q8H PRN 30 days diphenhydramine-zinc acetate 2-0.1 % (Benadryl Extra Strength) 1 appl topical BID PRN docusate sodium 200 mg (2 x 100 mg) PO BEDTIME doxycycline hyclate 100 mg PO BID 10 days ezetimibe 10 mg PO QAM fluocinolone 0.01% topical hydrocortisone 2.5% (Proctosol HC) 1 appl VT BID-QID PRN insulin glargine (Lantus Solostar U-100 Insulin) 10 units subcut QPM lancets (TRUEplus Lancets) As directed..Test blood sugar 3x per day. loratadine 10 mg PO QAM melatonin 3 mg PO BEDTIME metformin 1,000 mg PO BID metoprolol tartrate 25 mg PO BID dkysuylf-nyp-kabp fum-folic ac 7.5 mg iron-400 mcg 1 tab PO QAM nitroglycerin 0.4 mg sublingual Q5M PRN omeprazole 40 mg PO DAILY oxybutynin chloride ER 5 mg PO BEDTIME pen needle, diabetic As directed plecanatide (Trulance) 3 mg PO DAILY polyethylene glycol 3350 17 grams PO DAILY PRN prednisone PO daily; Take 2 tabs x 5 days, then 1 tab x 5 days 10 days repaglinide 1 mg PO TID tramadol 50 mg PO TID PRN trazodone 1 tab PO BEDTIME PRN valacyclovir 1,000 mg PO TID HPI HPI lipoma (R) side mid back: Details: 84-year-old female referred for a lipoma on the back. She says she has had this for over 3 years now. This has been increasing in size. She admits to some discomfort although without any significant pain. She denies any skin changes. 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 Pulmonary fibrosis Chronic respiratory failure Pressure ulcer of sacral region, stage 2 DVT, bilateral lower limbs Fungal dermatitis High cholesterol Atherosclerotic cardiovascular disease HLD (hyperlipidemia) HTN (hypertension) T2DM (type 2 diabetes mellitus) COPD (chronic obstructive pulmonary disease) Pulmonary nodules Asthma Hyperlipidemia, unspecified Type 2 diabetes mellitus with unspecified complications Essential hypertension Angina pectoris Bursitis of right shoulder Surgical History History of bunionectomy History of total abdominal hysterectomy and bilateral salpingo-oophorectomy Hx of colonoscopy Family History Mother HTN (hypertension) Brother Lung cancer Daughter Breast cancer Maternal Aunt Breast cancer Daughter Eye cancer Social History Household Members: None Housing: Apartment Housing Other:: [facility] hospital Are you a primary residential child care counselor to a significant other at home: No Do 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 have 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 or other home services: Yes (speeder tender) Alcohol intake: current Alcohol intake frequency: holidays/special occasions only Comment: PT SLEEPING Patient Tobacco Use Status: Former Tobacco user Second Hand Smoke Exposure: No Advance Directives Date on File: 08/27/20 service: No Current occupational status: retired Review of Systems Const Denies chills and Denies fever(s) Card Denies chest pain, Denies dyspnea and Denies dyspnea on exertion Resp Denies cough, Denies dyspnea and Denies dyspnea on exertion GI Denies hematochezia and Denies change in bowel habits Denies hematuria Neuro Denies focal weakness and Denies convulsions Psych Denies depression and Denies mood swings Physical Exam Vital Signs: Last Vital Signs Pulse 103 H 02/15/25 09:46 BP 108/53 L 02/15/25 09:46 BMI result Body Mass Index 24.7 Const Other: Using a walker General: comfortable and no acute distress Orientation/consciousness: patient oriented x3 Neck Neck: Yes no lymphadenopathy Resp Auscultation: clear to auscultation bilaterally Cardio Rhythm: regular rhythm GI Palpation (GI): Soft to palpation, nontender and no guarding Back/Spine/Pelvis Other: Lipomatous mass, about 2.5 cm on the mid back area, well-defined, mobile Neuro General: patient oriented x3 Assessment & Plan Assessment & Plan (1) Lipoma of back: Code(s): D17.1 - Benign lipomatous neoplasm of skin and subcutaneous tissue of trunk Category: Medical Plan: She has this lipoma of the back as described above. She says that this has been increasing in size and she wants this removed. I explained the technique of excision under local anesthesia. I reviewed the risks including but not limited to bleeding and infections, as well as the benefits and alternatives. She understands and says she wants to proceed. This will be done in the office as a minor procedure. She does not need to stop her Plavix. Coding Level of Care Code New Pt Level 3 (19420) Diagnoses Lipoma of back D17.1
[2025-02-15 09:46] VITALS: BP 108/53; PULSE 103; BMI 24.7
--- OUTSIDE RECORDS SUMMARY | 2025-02-15 10:03 | XMS_ITS | Data Portability ---
Author Organization [employer] [facility], [facility] Address [address] [place] [phone] Care Team Providers Care Repairer Switchgear Name Role Phone HIM CCA OTHER YONATHANEVA SINGLETARYHERMELINDO Primary Care Provider Assessment Encounter Date Assessment Date Assessment LastModified by Organization Details LastModified Time 09/16/2024 09/16/2024 As noted, we were called to see this patient regarding concerns of fever and cough. Evaluation in the field was performed by my vamp liner colleague, as noted above, I provided real-time [...] Lab rapid flu (A+B) 2024 025 [email or web address] [facility], [address] [place] [address], [id number] 5 15:33:51 rapid SARS CoV 2 Ag, QL IA, respiratory specimen [address] [place] [address], [address] [place] [address], [id number] 5 15:33:51 Referral None recorded. Procedures None recorded. Surgeries None recorded. Imaging None recorded. Medication Orders ipratropium 0.5 mg-albutero l 3 mg (2.5 mg base)/3 mL nebulizatio n soln [address] [place] [address] Pharmacy, [address] [place] [address], [id number], 5 15:33:51 prednisone 20 mg tablet [address] [place] [address] Pharmacy, [address] [place] [address], [id number], 5 15:33:51 prednisone 20 mg tablet [address] [place] [address] Pharmacy, [address] [place] [address], [id number], 5 17:52:17 albuterol sulfate HFA 90 mcg/actuati on aerosol inhaler [address] [place] [address] Pharmacy, [address] [place] [address], [id number], 5 17:52:16 ibuprofen 200 mg tablet [address] [place] [address] Pharmacy, [address] [place] [address], [id number], 5 15:33:51 ibuprofen 600 mg tablet [address] [place] [address] Pharmacy, [address] [place] [address], [id number], 5 17:52:15 Tylenol 325 mg tablet 2024 025 [facility], [address] [place] [address], [place], [place], [id number], 17:52:15 Patient TargetsNo targets recorded. Patient InstructionsNo [...] Name and Address Organization Details Recorded Time 96389 codeine medicatio n Not available Not available Not available 09/16/2024 4430 RxNorm Not Available [facility] - production 13:20:05 [...] Available Not Available No t Available Acid Visual Merchandising Director (famotidine) 10 mg tablet TAKE 1 TO [...] blood by Pulse oximetry Body temperature Systolic And Diastolic Provider Name and Address Organization Details Last Updated DateTime 5 20 /min 154.94 cm 120 /min 94699.9 6 g 94 % 94 % 99.8 [degF] 104/66 mm[Hg] Not Available [facility] - production 5 [...] SNOMED-CT Code Diagnosis ICD10 Code Diagnosis Note [id number] Dontae Fleming MD Main - [facility] [address] [place] [phone] 09/16/2024 15:17:08 09/19/2024 17:11:28 Wheezing 00702992 R06.2 Influenza A virus present [id number] 08 J09.X2 Health Concerns Section Related Observation LastModified by Organization Detai ls LastModified Time None Recorded Concern Status LastModified by Organization Details LastModified Time None Recorded Advance Directives Directive None Recorded Payers Insurance Date Sequence Insurance Name Policy Number Policy Gallardo Covered Member ID Gallardo Member ID Guarantor Name 09/16/2024 1 [facility] - DOS ON OR AFTER 2022 - DUAL ELIGIBLE - LONG-TERM OPTIONS AND ONE CARE (MEDICARE REPLACEMENT/ADV ANTAGE - HMO) Ana Varghese [id number] Ana Varghese Notes Date Note Type Note Provider Name and Address Organization Details Recorded Time 09/16/2024 text/html ROS as noted in the [facility] Nurse Triage Notes (Lelia Ling - RN): Reason For Request: Pt daughter Katia calling, ot has fever and strong cough Patient Reports: Cough, fever greater than 2 days Denies: Increased work of breathing/labored with or without fever Unable to speak in full sentences without distress Discoloration of skin -cyanosis Needs to sleep sitting up, can t catch breath Shortness of breath in setting of confusion Chief Complaints: Cough, Fever/chills PMH: Emphysema, Osteoarthritis, Diabetes Mellitus Type 2 PMH Reviewed at 09/16/2024 - :20 Allergies Reviewed at 09/16/2024 - :20 Comments: Patient has fever, general discomfort and [...] s/s and seek emergency treatment if needed. Wood Tank Erector Organization Information for Angelic Mcarthur Business Legal Name: [employer]. Address: [address] [place] [address], Air Battle Manager: Malcolm Caruso MD CLIA No.: [id number] [employer] POC Test Results from [facility] [employer] Rapid COVID antigen (15:17:05) COVID: - Rapid influenza antigen (15:17:06) Flu: +A .................. .................. .................. .................. .................. .................. .................. ............... Wood Tank Erector Note From Angelic Mcarthur: DK makes pt [...] not bleeding anywhere. Pt and family are Ivorian-speaking only, so psychological operations officer services are utilized. Pt c/o fever, cough, [...] Pt consents to evaluation and treatment today. [facility] obtains pt consent. Vital signs are gathered and pt is assessed. Lung sounds are rhonchus and decreased in the bases w/ some mild expiratory wheezes throughout. Her skin is warm to touch and tents easily. Oral mucosa is somewhat dry. Pt is swabbed for COVID/flu and results show positive for flu A. [facility] and [facility] discuss the above. [facility] orders 30mg prednisone and 600mg ibuprofen PO, [...] bandage is applied w/ 2x2 and coban. Well Drill Operator services are again used to ensure pt and family understand the medications that [facility] prescribed and answer any remaining questions. Pt and family thank [facility] for coming. [facility] is clear. Report completed by MIGUE Mcarthur [id number]. [facility] Lab Orders: rapid flu (A+B): Performed rapid SARS CoV 2 Ag, QL IA, respiratory specimen: Performed .................. .................. .................. .................. .................. .................. .................. ............... [facility] Consulted: Dontae Fleming .................. .................. .................. .................. .................. .................. .................. ............... Disposition: Janis Fleming MD [address] [facility],[address], [place], [address], LEWIS - [employer], SHARA 09/18/2024 15:40:15 OBGyn Episode No OBEpisode recorded.
--- OUTSIDE RECORDS SUMMARY | 2025-02-15 10:03 | XMS_ITS | Clinical Summary ---
Author Organization [address] [facility] Address [address] [place] [address] Phone Care Team Providers Care Chemical Compounder Helper Name Role Phone Melinda Krishnan MD Primary [...] 50 mg 24 hr tablet 50 mg. Acti ve loratadine (CLARITIN) 10 mg tablet 10 mg. Active insulin glargine (LANTUS) 100 unit/mL injection 100 Units/mL. Active fluticasone propionate (FLONASE) 50 mcg/actuation nasal spray USE 1 SPRAY IN EACH NOSTRIL ONCE DAILY. Active ezetimibe (ZETIA) 10 mg tablet 10 mg. Active diphenhydrAMINE (BENADRYL) 25 mg tablet 25 mg. 7 Active clotrimazole (LOTRIMIN) 1 % cream APPLY 2-3 TIMES DAILY TO AFFECTED AREA(S). Active clopidogreL (PLAVIX) 75 mg tablet 75 mg. Active cholecalciferol (VITAMIN D-3) 1,250 mcg (50,000 unit) capsule 50,000 Units. Active atorvastatin (LIPITOR) 80 mg tablet 80 mg. Active calcium carbonate-vitam in D3 (Caltrate with Vitamin D3) 600 mg-20 [...] metFORMIN (GLUCOPHAGE) 1,000 mg tablet 1,000 mg. Acti ve repaglinide (PRANDIN) 2 mg tablet 2 mg. Active senna (SENOKOT) 8.6 mg tablet 8.6 mg. Active SITagliptin phosphate (Januvia) 100 mg tablet 100 mg. Active traZODone (DESYREL) 50 mg tablet 50 mg. Active triamcinolone (KENALOG) 0.1 % cream APPLY AND RUB IN A THIN FILM TO AFFECTED AREAS TWICE DAILY.(AM AND PM). Active Active Problems Problem Noted Date Diagnosed Date Urge incontinence 04/21/2019 Osteopenia 04/21/2019 Lumbar spondylosis 04/21/2019 Vitamin D deficiency 04/21/2019 Degenerative joint disease (DJD) of hip 04/21/20 19 Overview (04/27/2024): right Allergic rhinitis 04/21/2019 Hyperlipidemia 06/13/2017 Hypertension 06/13/2017 Diabetes mellitus type 2, un complicated ([facility] V24, [facility] V28) 06/13/2017 Depression 06/13/2017 Asthma 05/25/2017 Multiple pulmonary nodules 05/25/2017 Medical History Medical History Date Comments Hyperlipidemia 06/13/2017 DX:Hyperlipidemi a Depression 06/13/2017 DX:Depression Hypertension 06/13/2017 DX:Hypertension Diabetes mellitus type 2, uncomplicated ([facility] V24, [facility] V28) 06/13/2017 DX:Diabetes mellitus type 2, uncomplicated ([facility]) Asthma 05/25/2017 DX:Asthma History of tobacco use [...] 1:30 PM EDT Office Visit Orthopedic Surgery - [place] [address] [phone] Angelo Mendez, DPM [address] [address] Health Maintenance Due Date Last Done Comments Diabetes: Annual Foot Exam 12/02/1950 Diabetes: Annual Retina Eye Exam 12/02/1950 Falls Risk Assessment 06/29/2022 Osteoporosis Screening (Bone Density Screening) 06/29/2022 Social Influencers of Health Screening 06/29/2022 Diabetes: Annual Urine Albumin-Creatinine Ratio (uACR) 07/11/2022 COVID-19 Vaccine ( season) 2024 12/16/2023, 12/10/2021, 08/22/2021, Additional history exists Depression Screening 07/27/2024 Diabetes: Blood Sugar Control Test (HGBA1C) 02/26/2025 08/29/2024, 06/03/2024, 03/16/2024 Influenza Vaccine (#1) 2025 , 04/28/2023, 04/27/2022, Additional history exists Diabetes: Annual GFR (Glomerular Filtration Rate) 06/28/2025 [...] 04/11/2013 RSV Immunization Adult Patients Completed 09/03/2023 HIB Vaccines Aged Out No longer eligi [...] to complete this topic Insurance MEDICAID - [facility] MEDICAID Care Teams Chemical Compounder Helper Relationship Specialty Start Date End Date Melinda Krishnan MD [address] [facility] 1 [place] [address] PCP - General Internal Medicine 04/27/24
--- OUTSIDE RECORDS SUMMARY | 2025-02-15 10:03 | XMS_ITS | Encounter Summary ---
Author Organization [facility] Address [address] [place] [address] Care Team Providers Care Shoe Dyer Name Role Phone Sparkle Magallanes MD Primary Care Provider U bonnieailMelinda Roque MD Primary Care Provide r Unavailable Encounter Details Date Type Department Care Team Description 11/25/2017 Release of Information Medical Records [address] [place] [address] Abstract, Provider Social History Tobacco Use Types Packs/Day Years Used Date Smoking Tobacco: Never Assessed Sex Assigned at Date Recorded Not on file documented as of this encounter Plan of Treatment Not on file documented as of this encounter Visit Diagnoses Not on filedocumented in this encounter Care Teams Shoe Dyer Relationship Specialty Start Date End Date Sparkle Magallanes MD PCP - General Family Practice 10/25/17 4 Melinda Duff MD PCP - General Internal Medicine 03/23/24 documented as of this encounter
--- OUTSIDE RECORDS SUMMARY | 2025-02-15 10:03 | XMS_ITS | Encounter Summary ---
Author Organization [employer] Address [address] [facility] 7t [place] [address] Care Team Providers Care Brown Sourer Name Role Phone Melinda Krishnan MD Primary Care Provide r Rosmery Quiles PharmD Unavailable Reason for Visit * Reason Onset Date Comments Appointment Request 07/11/2024 Encounter Details Date Type Department Care Team ([facility] st Contact Info) Description 07/11/2024 Telephone [facility] MEDICINE [address] [place] [address] Melinda Krishnan MD [address] [place] [address] Appointment Request Social History Tobacco Use Types [...] the past 12 months, has t he [employer], gas, oil or water [employer] threatened to shut off services in your [...] 07/11. Contact pt daughter to r/s at [phone] documented in this encounter Plan of Treatment Upcoming Encounters Date Type Department Care Team (Late st Contact Info) Description 02/20/2025 3:00 PM EDT Clinical Support [facility] DIABETES/NUTRITION [address] [place] [address] Aurora Cross, SUELLEN [address] [place] [address] 03/10/2025 1:30 PM EDT Medication Management [facility] MEDICINE [address] [place] [address] Rosmery Quiles, Raisa [address] [place] [address] 04/17/2025 1:30 PM EDT Office Visit [facility] MEDICINE [address] [place] [address], [place] [address] Melinda Krishnan MD [address] [place] [address] 05/22/2025 1:00 PM EDT Office Visit [facility] ADULT DENTAL [address] [place] [address] Selma Green [address] [place] [address] documented as of this encounter Goals Goal Patient Goal Type Associated Problems Recent Progress Patient-Stated? Author Hemoglobin A1c < 8 Result Component 6.9( 1:45 PM EDT) No Danielle Sharma Record your blood sugar as directed Result Component No Danielle Sharma documented as of this encounter Visit Diagnoses Not on filedocumented in this encounter Additional Health Concerns Assessment Noted Time PHQ-9 Depression Total Score: 9 03/16/20 24 3:28 PM EDT documented as of this encounter Care Teams Brown Sourer Relationship Specialty Start Date End Date Melinda Krishnan MD [address] [place] [phone] PCP - General Family Medicine 09/06/20 Rosmery Quiles, HopeD [address] [place] [phone] Pharmacist Internal Medicine 02/01/24 documented as of this encounter
== END 2025-02-15 10:02 | disposition home or self-care (01) ==
LOC: HO.HGS 09:33
PROVIDERS: PCP Internal Medicine; Visit Provider Surgery
DX: D17.1 Benign lipomatous neoplasm of skin and subcutaneous tissue of trunk (principal)
CPT/HCPCS: 99203

== ENCOUNTER → 2025-02-15 09:33 | Outpatient (BNVA) | payer OTHER, SELFPAY | PROVIDERS: PCP Internal Medicine; Visit Provider Surgery | DX: D17.1 Benign lipomatous neoplasm of skin and subcutaneous tissue of trunk (principal) | CPT/HCPCS: 99202 ==

== ENCOUNTER 2025-04-19 13:22 | Outpatient (REF) | payer OTHER, SELFPAY | END 2025-04-19 13:23 | disposition home or self-care (01) | LOC: HO.LNP 13:22 | PROVIDERS: PCP Internal Medicine; Visit Provider Surgery | DX: D17.1 Benign lipomatous neoplasm of skin and subcutaneous tissue of trunk (principal) | CPT/HCPCS: 11403; 88304 ==

== ENCOUNTER 2025-04-19 13:22 | Outpatient (AMB) | payer OTHER, SELFPAY ==
--- NOTE | 2025-04-19 13:13 | A.OFFVIS_ITS ---
Vital Signs 04/19/25 13:33 Height 5 ft 1 in Weight 132 lb 4.438 oz BMI 25.0 Intake Visit Reasons: WLE lipoma~ Rt mid back Intake Note: Office procedure: WLE lipoma~ Rt mid back Automatic Clipper Required: Yes Automatic Clipper Language: It Security Consulting Director Services: Automatic Clipper Present Automatic Clipper Name: Gisella Information Interpreted: non-clinical & clinical Accompanied by: Daughter Allergies codeine (Codeine) Allergy (Mild, Verified 04/19/25 13:31) DIZZINESS, VOMITING insulin lispro (INSULIN LISPRO) Allergy (Unknown, Verified 04/19/25 13:31) NAUSEA & VOMITING oxycodone (OXYCODONE) Allergy (Unknown, Verified 04/19/25 13:31) NAUSEA & VOMITING HPI HPI WLE lipoma~ Rt mid back: Details: She is here for excision of a lipoma from the back. 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 Pulmonary fibrosis Chronic respiratory failure Pressure ulcer of sacral region, stage 2 DVT, bilateral lower limbs Fungal dermatitis High cholesterol Atherosclerotic cardiovascular disease HLD (hyperlipidemia) HTN (hypertension) T2DM (type 2 diabetes mellitus) COPD (chronic obstructive pulmonary disease) Pulmonary nodules Asthma Hyperlipidemia, unspecified Type 2 diabetes mellitus with unspecified complications Essential hypertension Angina pectoris Bursitis of right shoulder Surgical History History of bunionectomy History of total abdominal hysterectomy and bilateral salpingo-oophorectomy Hx of colonoscopy Family History Mother HTN (hypertension) Brother Lung cancer Daughter Breast cancer Maternal Aunt Breast cancer Daughter Eye cancer Social History Household Members: None Housing: Apartment Housing Other:: [facility] Are you a primary home care provider to a significant other at home: No Do 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 have 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 or other home services: Yes (school commissioner) Alcohol intake: current Alcohol intake frequency: holidays/special occasions only Comment: PT SLEEPING Patient Tobacco Use Status: Former Tobacco user Second Hand Smoke Exposure: No Advance Directives Date on File: 08/27/20 service: No Current occupational status: retired Office Procedures Excision Details: She was in prone position. The area of the lipoma was prepped and draped. Lidocaine 1% was used for local anesthesia. I made an incision in the skin overlying the lipoma with a blade 15. This was carried down sharply through the full-thickness of the skin subcutaneous fat until the lipoma was visualized. I sharply dissected the lipoma off of the rest of the subcutaneous layer using scissors circumferentially and this was delivered and sent as specimen. The lipoma measured about 2.6 cm in diameter. I closed the incision with full- thickness nylon 3-0 simple interrupted sutures. Dressings were applied. The procedure was completed. She tolerated the procedure well. There were no immediate complications. She was given wound care instructions. She will be seen in the office for removal of sutures. [id number]/arms/legs 2.1-3cm Procedure code (CPT) selection complete Assessment & Plan Assessment & Plan (1) Lipoma of back: Code(s): D17.1 - Benign lipomatous neoplasm of skin and subcutaneous tissue of trunk Category: Medical Plan: She was given wound care instructions. I will see her in the office 2 weeks for removal sutures. Coding Level of Care Code Procedure Only Diagnoses Lipoma of back D17.1 CPT Codes Trunk/Arms/Legs - CPT: 22562-zjjwe/arms/legs 2.1-3cm ([id number])
[2025-04-19 13:33] VITALS: BMI 25.0
--- OUTSIDE RECORDS SUMMARY | 2025-04-19 15:47 | XMS_ITS | Encounter Summary ---
Author Organization [employer] Address [address] [facility] [address] [place] [address] Care Team Providers Care Shaker Washer Name Role Phone Melinda Krishnan MD Primary Care Provide r Rosmery Quiles PharmD Unavailable Reason for Visit * Reason Onset Date Comments Appointment 10/17/2022 Encounter Details Date Type Department Care Team (Late st Contact Info) Description 10/17/2022 Telephone [facility] ADULT DENTAL [address] [place] [address] Arnaldo To DMD Appointment Social History Tobacco [...] Care Team (Late st Contact Info) Description 05/08/2025 1:45 PM EDT Telemedicine [facility] MEDICINE [address] [place] [phone] Melinda Krishnan MD [address] [place] [address] 05/22/2025 12:45 PM EDT Office Visit [facility] ADULT DENTAL [address] [place] [address] Norma, Selma [address] [place] [address] 05/22/2025 1:30 PM EDT Medication Management [facility] MEDICINE [address] [place] [phone] Rosmery Quiles PharmD [address] [place] [phone] documented as of this encounter Visit Diagnoses Not on filedocumented in this encounter Care Teams Shaker Washer Relationship Specialty Start Date End Date Melinda Krishnan MD [address] [place] [address] PCP - General Family Medicine 09/06/20 Rosmery Quiles PharmD [address] [place] [phone] Pharmacist Internal Medicine 02/01/24 documented as of this encounter
--- OUTSIDE RECORDS SUMMARY | 2025-04-19 15:47 | XMS_ITS | Encounter Summary ---
Author Organization [employer] Address [address] [facility] [address] [place] [address] Care Team Providers Care Reheat Furnace Operator Name Role Phone Melinda Krishnan MD Primary Care Provide r Rosmery Quiles PharmD Unavailable Reason for Visit * Reason Onset Date Comments Appointment 11/05/2022 Encounter Details Date Type Department Care Team (Late st Contact Info) Description 11/05/2022 Telephone [facility] ADULT DENTAL [address] [place] [address] Arnaldo To DMD Appointment Social History Tobacco [...] Info) Description 05/08/2025 1:45 PM EDT Telemedicine [facility] MEDICINE [address] [place] [address] Melinda Krishnan MD [address] [place] [address] 05/22/2025 12:45 PM EDT Office Visit [facility] ADULT DENTAL [address] [place] [address] Norma, Selma [address] [place] [address] 05/22/2025 1:30 PM EDT Medication Management [facility] MEDICINE [address] [place] [address] Rosmery Quiles PharmD [address] [place] [address] documented as of this encounter Visit Diagnoses Not on filedocumented in this encounter Care Teams Reheat Furnace Operator Relationship Specialty Start Date End Date Melinda Krishnan MD [address] [place] [address] PCP - General Family Medicine 09/06/20 Rosmery Quiles PharmD [address] [place] [phone] Pharmacist Internal Medicine 02/01/24 documented as of this encounter
--- OUTSIDE RECORDS SUMMARY | 2025-04-19 15:47 | XMS_ITS | Encounter Summary ---
Author Organization [employer] Address [address] [facility] 7t [place] [address] Care Team Providers Care Field Recorder Name Role Phone Melinda Krishnan MD Primary Care Provide r Rosmery Quiles PharmD Unavailable Encounter Details Date Type Department Care Team (Latest Contact Info) Description 07/17/2021 Abstract [facility] CONVERSIONS Dental, Provider, DDS Social [...] Upcoming Encounters Date Type Department Care Team ( st Contact Info) Description 05/08/2025 1:45 PM EDT Telemedicine [facility] MEDICINE [address] [place] [phone] Melinda Krishnan MD [address] [place] [address] 05/22/2025 12:45 PM EDT Office Visit [facility] ADULT DENTAL [address] [place] [address] Selma Green [address] [place] [address] 05/22/2025 1:30 PM EDT Medication Management [facility] MEDICINE [address] [place] [address] Rosmery Quiles, PharmD [address] [place] [address] documented as of this encounter Visit Diagnoses Not on filedocumented in this encounter Care Teams Field Recorder Relationship Specialty Start Date End Date Melinda Krishnan MD [address] [place], [place] [phone] PCP - General Family Medicine 09/06/20 Rosmery Quiles, PharmD [address] [place], [place] [phone] Pharmacist Internal Medicine 02/01/24 documented as of this encounter
--- OUTSIDE RECORDS SUMMARY | 2025-04-19 15:47 | XMS_ITS | Encounter Summary ---
Author Organization [employer] Address [address] [facility] 7t [place] [address] Care Team Providers Care Supervisor Baking Name Role Phone Melinda Krishnan MD Primary Care Provide r Rosmery Quiles PharmD Unavailable [phone] Encounter Details Date Type Department Care Team (Latest Contact Info) Description 02/23/2019 Abstract [facility] CONVERSIONS Dental, Provider, DDS Social History [...] Info) Description 05/08/2025 1:45 PM EDT Telemedicine [facility] MEDICINE [address] [place] [address] Melinda Krishnan MD [address] [place] [address] 05/22/2025 12:45 PM EDT Office Visit [facility] ADULT DENTAL [address] [place] [phone] Selma Green [address] [place] [address] 05/22/2025 1:30 PM EDT Medication Management [facility] MEDICINE [address] [place] [address] Rosmery Quiles, PharmD [address] [place] [address] documented as of this encounter Visit Diagnoses Not on filedocumented in this encounter Care Teams Supervisor Baking Relationship Specialty Start Date End Date Melinda Krishnan MD [address] [place], [place] [phone] PCP - General Family Medicine 09/06/20 Rosmery Quiles, PharmD [address] [place] [address] Pharmacist Internal Medicine 02/01/24 documented as of this encounter
--- OUTSIDE RECORDS SUMMARY | 2025-04-19 15:47 | XMS_ITS | Encounter Summary ---
Author Organization [employer] Address [address] [facility] [address] [place] [address] Care Team Providers Care Production Engineer Track Name Role Phone Melinda Krishnan MD Primary Care Provide r Rosmery Quiles PharmD Unavailable [phone] Reason for Visit * Reason Comments Med Refill Encounter Details Date Type Department Care Team (Late st Contact Info) Description 06/11/2023 Refill [facility] [address] [place] [address] Melinda Krishnan MD [address] [place], [place] [phone] Pain in left shoulder Social History Tobacco [...] Info) Description 05/08/2025 1:45 PM EDT Telemedicine [facility] [address] [place] [phone] Melinda Krishnan MD [address] [place] [phone] 05/22/2025 12:45 PM EDT Office Visit [facility] [address] [place] [phone] Norm[place], [place] [address] [place] [address] 05/22/2025 1:30 PM EDT Medication Management [facility] [address] [place] [phone] Rosmery Quiles PharmD [address] [place] [phone] documented as of this encounter Visit Diagnoses Diagnosis Pain in left shoulder documented in this encounter Additional Health Concerns Assessment Noted Time PHQ-9 Depression Total Score: 0 11/13/19 23 2:46 PM EDT documented as of this encounter Care Teams Production Engineer Track Relationship Specialty Start Date End Date Melinda Krishnan MD [address] [place] [phone] PCP - General Family Medicine 09/06/20 Rosmery Quiles PharmD [address] [place] [address] Pharmacist Internal Medicine 02/01/24 documented as of this encounter
--- OUTSIDE RECORDS SUMMARY | 2025-04-19 15:47 | XMS_ITS | Encounter Summary ---
Author Organization [employer] Address [address] [facility] [address] [place] [address] Care Team Providers Care Marketing Copywriter Name Role Phone Melinda Krishnan MD Primary Care Provide r Rosmery Quiles PharmD Unavailable Reason for Visit * Reason Onset Date Comments partial difficulty 05/22/2023 Encounter Details Date Type Department Care Team ([facility] st Contact Info) Description 05/22/2023 Telephone [facility] [address] [place] [address] Hardeep Fontenot, DMD [address] [place] [address] partial difficulty Social History Tobacco Use Types [...] Info) Description 05/08/2025 1:45 PM EDT Telemedicine [facility] [address] [place] [phone] Melinda Krishnan MD [address] [place] [address] 05/22/2025 12:45 PM EDT Office Visit [facility] [address] [place] [address] [place] [address] [place] [address] 05/22/2025 1:30 PM EDT Medication Management [facility] [address] [place] [phone] Rosmery Quiles PharmD [address] [place] [address] documented as of this encounter Visit Diagnoses Not on filedocumented in this encounter Additional Health Concerns Assessment Noted Time PHQ-9 Depression Total Score: 0 11/13/19 23 2:46 PM EDT documented as of this encounter Care Teams Marketing Copywriter Relationship Specialty Start Date End Date Melinda Krishnan MD [address] [place] [address] PCP - General Family Medicine 09/06/20 Rosmery Quiles, HopeD [address] [place], [place] [phone] Pharmacist Internal Medicine 02/01/24 documented as of this encounter
--- OUTSIDE RECORDS SUMMARY | 2025-04-19 15:47 | XMS_ITS | Encounter Summary ---
Author Organization [employer] Address [address] [facility] [address] [place] [address] Care Team Providers Care Latex Foam Worker Name Role Phone Melinda Krishnan MD Primary Care Provide r Rosmery Quiles PharmD Unavailable [phone] Encounter Details Date Type Department Care Team ([facility] st Contact Info) Description 05/22/2023 Abstract [facility] [address] [place] [address] Melinda Krishnan MD [address] [place] [address] Social History Tobacco Use Types Packs/Day Years [...] Info) Description 05/08/2025 1:45 PM EDT Telemedicine [facility] [address] [place] [phone] Melinda Krishnan MD [address] [place] [address] 05/22/2025 12:45 PM EDT Office Visit [facility] [address] [place] [address] Norma, [place] [address] [place] [address] 05/22/2025 1:30 PM EDT Medication Management [facility] [address] [place] [phone] Rosmery Quiles PharmD [address] [place] [phone] documented as of this encounter Visit Diagnoses Not on filedocumented in this encounter Additional Health Concerns Assessment Noted Time PHQ-9 Depression Total Score: 0 11/13/19 23 2:46 PM EDT documented as of this encounter Care Teams Latex Foam Worker Relationship Specialty Start Date End Date Melinda Krishnan MD [address] [place] [phone] PCP - General Family Medicine 09/06/20 Rosmery Quiles PharmD [address] [place] [phone] Pharmacist Internal Medicine 02/01/24 documented as of this encounter
--- OUTSIDE RECORDS SUMMARY | 2025-04-19 15:47 | XMS_ITS | Clinical Summary ---
Author Organization [employer] Address [address] [facility] [address] [place] [address] Care Team Providers Care Kindergarten Classroom Teacher Name Role Phone Melinda Krishnan MD Primary Care Provide r Rosmery Quiles PharmD Unavailable Allergies Active Allergy Reactions Criticality Noted Date Comments Codeine Nausea And Vomiting 07/24/2010 Other reaction(s): vomiting Insulin Lispro Nausea And Vomiting 10/31/2013 Other reaction(s): Nausea Oxycodone Nausea And Vomiting 07/24/2010 Other reaction(s): vomiting Medications fluticasone (Flonase) 50 MCG/ACT nasal sprayIndications :Seasonal allergic rhinitis, unspecified trigger [place] 2 spray into both nostrils once a day as needed 48 g 023 Active senna (Senokot) 8.6 MG tablet TAKE 1 TO 2 TABLETS BY MOUTH EVERY EVENING NEEDED FOR CONSTIPATION 180 tablet 3 023 Active Eye Itch Relief 0.025 % ophthalmic solutionIndicati ons:Allergic conjunctivitis of both eyes PLACE 1 DROP IN EACH EYE TWICE DAILY 10 mL 1 023 Active albuterol (Ventolin HFA) 108 (90 Base) MCG/ACT inhalerIndicatio ns:Chronic obstructive pulmonary disease, unspecified COPD type (CMS/HCC) INHALE 2 PUFFS BY MOUTH EVERY 4 HOURS NEEDED SHORTNESS OF BREATH 18 g 1 024 Active budesonide-formo terol (Symbicort) 160-4.5 MCG/ACT inhalerIndicatio ns:Chronic obstructive pulmonary disease, unspecified COPD type (CMS/HCC) INHALE 2 PUFFS BY MOUTH EVERY MORNING FOR ASTHMA. RINSE MOUTH AFTER USING. 6 g Active docusate sodium (Colace) 100 MG capsule TAKE 2 CAPSULES BY MOUTH EVERY DAY AT BEDTIME Active glucagon (Baqsimi) 3 MG/DOSE nasal powderIndication s:Type 2 diabetes mellitus with hyperglycemia, with long-term current use of insulin ([facility]) Use as directed for severe hypoglycemia. May repeat in 15 minutes if no response. 2 each Active Cinnamon 500 MG tablet PATIENT PURCHASING OTC Active Garlic 1000 MG capsule PATIENT PURCHASING OTC Active Collagen-Vitamin C-Biotin (Collagen 1500/C) 500-50-0.8 MG capsule PATIENT PURCHASING OTC Active nitroglycerin (Nitrostat) 0.4 MG SL tablet DISSOLVE 1 TABLET UNDER THE TONGUE EVERY 5 MINUTES NEEDED FOR CHEST PAIN. CALL 911 IF NO RELIEF 100 tablet 1 024 Active atorvastatin (Lipitor) 80 MG tablet TAKE 1 TABLET BY MOUTH AT BEDTIME (for cholesterol) 90 tablet 3 024 Active ezetimibe (Zetia) 10 MG tablet TAKE 1 TABLET BY MOUTH EVERY MORNING (for cholesterol) 90 tablet 3 024 Active metFORMIN (Glucophage) 1000 MG tablet TAKE 1 TABLET BY MOUTH TWICE DAILY IN THE MORNING AND IN THE EVENING WITH MEALS (for diabetes) 180 tablet 3 024 Active lidocaine (Lidoderm) 5 % patch APPLY 1 PATCH TOPICALLY TO SKIN, LEAVE ON FOR 12 HOURS AND OFF FOR 12 HOURS DIRECTED Active Diclofenac Sodium (Voltaren) 1 % gel Use topical BID 100 g 3 025 Active TRUEplus Lancets 33G miscIndications: Type 2 diabetes mellitus with hyperglycemia ([facility]),USP (current) use of insulin ([facility]) TEST BLOOD SUGAR THREE TIMES DAILY DIRECTED 100 each Active pen needle 31G x 5 mm miscIndications: Type 2 diabetes mellitus with hyperglycemia, without long-term current use of insulin ([facility]) Use to administer insulin once daily 100 each 11 025 2025 Active hydrocortisone 2.5 % cream APPLY TOPICALLY TWICE A DAY 20 g 2 025 Active acetaminophen (Tylenol) 325 MG tablet TAKE 2 TABLETS BY MOUTH EVERY 6 HOURS NEEDED FOR FEVER Active ibuprofen 600 MG tablet TAKE 1 TABLET BY MOUTH THREE TIMES DAILY NEEDED FOR FEVER Active ketoconazole (NIZOral) 2 % shampooIndicatio ns:Seborrheic dermatitis APPLY TO THE AFFECTED AREA(S) TOPICALLY TWICE A WEEK 120 mL Active fluocinolone ([place]oothe) 0.01 % external oilIndications:S eborrheic dermatitis Apply topically 3 times daily. 118.28 mL 025 2025 Active Alcohol Swabs (Alcohol Prep) 70 % padsIndications: Type 2 diabetes mellitus with other specified complication, unspecified whether superintendent container terminal insulin use (CMS/[facility]) USE DIRECTED 2 TO 4 TIMES DAILY 100 each Active clopidogrel (Plavix) 75 MG tablet TAKE 1 TABLET BY MOUTH EVERY MORNING (for the heart) 90 tablet 3 Active Continuous Glucose Tinter Photograph (FreeStyle Cristino 3 [place]) deviceIndication s:Type 2 diabetes mellitus with hyperglycemia, with long-term current use of insulin ([facility]) 1 each Once per day. Use as directed for CGM 1 each Active Continuous Glucose Sensor (FreeStyle Cristino 3 Plus Sensor) miscIndications: Type 2 diabetes mellitus with hyperglycemia, with long-term current use of insulin ([facility]) 1 each every 15 days. Apply 1 every 15 days as directed for CGM 2 each Active glucose blood (FreeStyle Precision Alonso Test) test stripIndications :Type 2 diabetes mellitus with hyperglycemia, with long-term current use of insulin ([facility]) Use to test blood sugar 3 times daily in case of CGM failure or extremes of BG 100 each 025 2025 Active Calcium 600/Vitamin D3 600-20 MG-MCG tablet TAKE 1 TABLET BY MOUTH TWICE DAILY IN THE MORNING AND IN THE EVENING 180 tablet Active metoprolol tartrate (Lopressor) 25 MG tablet TAKE 1 TABLET BY MOUTH TWICE DAILY IN THE MORNING AND IN THE EVENING (BLOOD PRESSURE) 180 tablet Active triamcinolone (Kenalog) 0.1 % creamIndications :Rash Apply topically if needed in the morning and at bedtime (pain and swelling). 30 g 2 025 Active melatonin 5 MG tabletIndication s:Insomnia, unspecified type Take 1 tablet (5 mg) by mouth at bedtime. 90 tablet 1 025 Active fexofenadine (Davida) 180 MG tablet TAKE 1 TABLET BY MOUTH ONCE DAILY NEEDED FOR ALLERGIES 30 tablet 3 025 Active Multiple Vitamins-Mineral s (multivitamin with minerals) tablet TAKE 1 TABLET BY MOUTH EVERY MORNING (( VITAMIN)) 90 tablet 1 025 Active Trulicity 4.5 MG/0.5ML solution auto-injectorInd ications:Type 2 diabetes mellitus with hyperglycemia, without long-term current use of insulin (CMS/[facility]) INJECT ONE PEN (= 4.5MG) SUBCUTANEOUSLY ONCE A WEEK DIRECTED 2 mL 3 025 Active oxybutynin XL (Ditropan-XL) 5 MG 24 hr tablet TAKE 1 TABLET BY MOUTH EVERY EVENING 90 tablet 3 025 Active glipiZIDE (Glucotrol) 5 MG tabletIndication s:Type 2 diabetes mellitus with hyperglycemia, without long-term current use of insulin (CMS/[facility]) TAKE 1 TABLET BY MOUTH ONCE DAILY BEFORE LARGE MEAL. DO NOT TAKE IF no FOOD 90 tablet 025 Active glucose (Glutose) 40 % gel oral gelIndications:T ype 2 diabetes mellitus with hyperglycemia, without long-term current use of insulin (CMS/[facility]) Take 15 g by mouth if needed for low blood sugar. 45 g 3 025 Active insulin glargine (Lantus SoloStar) 100 UNIT/ML penIndications:T ype 2 diabetes mellitus with hyperglycemia, without long-term current use of insulin (CMS/[facility]) Inject subcutaneously 12 units once daily 15 mL 025 Active glucose (Glutose) 40 % gel oral gelIndications:T ype 2 diabetes mellitus with hyperglycemia, without long-term current use of insulin (CMS/[facility]) Take 15 g by mouth if needed for low blood sugar. 45 g 11 024 2024 Discontinued(R eorder (will not trigger notification to Pharmacy)) oxybutynin XL (Ditropan-XL) 5 MG 24 hr tablet Take 1 tablet (5 mg) by mouth Once per day. Do not crush, chew, or split.TAKE 1 TABLET BY MOUTH EVERY EVENING (FOR UTI) 90 tablet 3 024 2024 Discontinued Trulicity 4.5 MG/0.5ML solution auto-injectorInd ications:Type 2 diabetes mellitus with hyperglycemia, without long-term current use of insulin (CMS/HCC) INJECT ONE PEN (= 4.5MG) SUBCUTANEOUSLY ONCE A WEEK DIRECTED 2 mL 3 025 2024 Discontinued glipiZIDE (Glucotrol) 5 MG tabletIndication s:Type 2 diabetes mellitus with hyperglycemia, without long-term current use of insulin (CMS/HCC) TAKE 1 TABLET BY MOUTH ONCE DAILY BEFORE LARGE MEAL. DO NOT TAKE IF YOU SKIP MEAL. 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 Pt is in usual state of health today and UA is reassuring Pt advised to discontinue lantus at this time . Monitor sugars closely, and nurses will outreach for blood sugar ranges on Thursday Pt aware of s/s to report in interim. Assessment & Plan (01/09/2025 4:35 PM EDT): Diabetes is: almost at goal - Lab Results Component Value Date HGBA1C 6.9 (A) 01/09/2025 HGBA1C 7.7 (A) 08/29/2024 HGBA1C 9.0 (A) 06/03/2024 - Lab Results Component Value Date MICROALBUR 32.0 06/28/2024 CREATININE 0.74 06/28/2024 -Changes: Continue to follow-up with pharmacy CDTM adjustments to her medications will be done accordingly to her CGM readings - Diabetic eye exam: Up-to-date - Diabetic foot exam: Up-to-date - Continue lifestyle modifications - Continue current medications - Follow up: 3 months Assessment & Plan (10/21/2024 3:19 PM EDT): [...] this I will also refer her to [facility] for management of chronic condition [...] CMG, she has being refer before to delivery recruiter and legal investigator without positive outcomes) - Assessment & Plan [...] -I increase her ozempic to 2mg weekly -Assistant Athletic Trainer referral today after possible referral to endocrinology Allergic conjunctivitis of both eyes 11/12/2022 Chronic eczema 11/07/2022 Chronic obstructive lung disease 11/07/2022 COVID-19 11/07/2022 Insomnia 11/07/2022 Assessment & Plan (01/09/2025 4:36 PM EDT): Sleep hygiene counseling done Melatonin 5 mg at bedtime prescribed Leukocytosis 11/07/2022 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 Chronic right shoulder pain 11/07/2022 Assessment & Plan (10/21/2024 3:18 PM EDT): Patient is due for her tramadol refill elevated today, I explained to her she needs to be under LAND TITLE EXAMINER and rules applies for everyone and I [...] Encounters Date Type Department Care Team Description 04/11/2025 Telephone [facility] [address] [place] [address] Melinda Krishnan MD r/s from 04/17/25 provider out 04/10/2025 Orders Only [facility] [address] [place] [address] Melinda Krishnan MD Type 2 diabetes mellitus with hyperglycemia, without long-term current use of insulin (CMS/HCC) (Primary Dx); Essential hypertension 04/10/2025 Telephone [facility] [address] [place] [address] Rosmery Quiles, PharmD 04/10/2025 Travel 04/02/2025 Refill [facility] [address] [place] [address] Melinda Krishnan MD Type 2 diabetes mellitus with hyperglycemia, without long-term current use of insulin (CMS/HCC) 03/22/2025 Refill [facility] [address] [place] [address] Melinda Krishnan MD 03/21/2025 Refill [facility] [address] [place] [address] Rosmery Quiles, PharmD Type 2 diabetes mellitus with hyperglycemia, without long-term current use of insulin (CMS/HCC) 03/10/2025 Telephone [facility] [address] [place] [address] Melinda Krishnan MD Appointment Request 03/06/2025 Refill [facility] [address] [place] [address] Melinda Krishnan MD Lumbar spondylosis (Primary Dx) 03/03/2025 1:00 PM EDT Clinical Support [facility]TR[facility] [address] [place] [address] Type 2 diabetes mellitus with hyperglycemia, with long-term current use of insulin (CMS/HCC) (Primary Dx) 03/03/2025 Travel 02/22/2025 Telephone [facility] [address] [place] [address] Melinda Krishnan MD Referral 02/15/2025 Telephone [facility] [address] [place] [address] Rosmery Quiles, PharmD 02/15/2025 Telephone [facility] [address] [place] [address] Melinda Krishnan MD Appointment Request 02/13/2025 Telephone [facility] [address] [place] [address] Dayan Dejesus, NARA 02/13/2025 Telephone [facility] [address] [place] [address] Dayan Dejesus RN 02/10/2025 1:40 PM EDT Office Visit [facility] [address] [place] [phone] Oneida Michaud, ZOHRA Type 2 diabetes mellitus with hyperglycemia, with long-term current use of insulin (CMS/[facility]) 02/10/2025 Telephone [facility] [address] [place] [address] Melinda Krishnan MD Med Refill 02/10/2025 Refill [facility] [address] [place] [address] Melinda Krishnan MD Lumbar spondylosis 02/10/2025 Telephone [facility] [address] [place] [address] Rosmery Quiles, PharmD 02/10/2025 Telephone [facility] [address] [place] [address] Sushma Quilessa, PharmD 02/07/2025 Telephone [facility] [address] [place] [address] Sushma Quilessa, PharmD 02/03/2025 Telephone [facility] [address] [place] [address] Anjana Mendoza, NARA [facility] Tele LAND TITLE EXAMINER RV today 01/30/2025 Refill [facility] [address] [place] [address] Melinda Krishnan MD 01/21/2025 Refill [facility] [address] [place] [address] Melinda Krishnan MD 01/20/2025 2:30 PM EDT Office Visit [facility] [address] [place] [address] Guru Ferreira DDS Open fracture of tooth, sequela (Primary Dx) from Last 3 Months Immunizations Immunization Administration Dates Next Due Hep B, adult [...] Answer Date Recorded Patient Health Questionnaire-9 Score 8 01/09/2025 Patient Health Questionnaire-9 Score 8 01/09/2025 Last PHQ-9: Questionnaire Data Not on file 0 01/09/2025 Housing Stability Answer Date Recorded What is [...] Answer Date Recorded Patient Health Questionnaire-2 Score 2 01/09/2025 Internet Access Answer Date Recorded Internet Access [...] Sign Reading Time Taken Comments Blood Pressure 120/60 04/10/2025 1:15 PM EDT Pulse 87 04/10/2025 1:15 PM EDT Temperature 36.6 C (97.9 F) 02/10/2025 1:42 PM EDT Respiratory Rate 18 02/10/2025 1:42 PM EDT Oxygen Saturation 97% 02/10/2025 1:42 PM EDT Inhaled Oxygen Concentration - - Weight 60.2 kg (132 lb 12.8 oz) 03/06/2025 1:48 PM EDT Height 154.9 cm (5' 1 ) 03/06/2025 1:48 PM EDT Body Mass Index 25.09 03/06/2025 1:48 PM EDT Plan of Treatment Upcoming Encounters Date Type Department Care Team (Late st Contact Info) Description 05/08/2025 1:45 PM EDT Telemedicine [facility] [address] [place] [phone] Melinda Krishnan MD [address] [place] [address] 05/22/2025 12:45 PM EDT Office Visit [facility] [address] [place] [phone] Rupert Greenaris [address] [place] [address] 05/22/2025 1:30 PM EDT Medication Management [facility] [address] [place] [phone] Rosmery Quiles, PharmD [address] [place] [address] Health Maintenance Due Date Last Done Comments Diabetes: Foot Exam 12/02/1950 Eye Exam 12/02/1949 Alcohol/Substance Use Screening 1952 Dental Oral Exam 11/05/2024 05/06/2024, 01/22/2023 Mammogram 01/28/2025 01/29/2024, 12/26, 01/20/2023, Additional history exists Lipid Panel 02/22/2025 02/23/2024, 10/2022, 12/18/2021, Additional history exists Influenza Vaccine (#1) 2025 , 04/28/2023, 04/27/2022, Additional history exists COVID-19 Vaccine ( season) 2025 11/04/2024, 12/16/2023, 12/10/2021, Additional history exists Dental X-Ray: Bitewings 05/07/2025 05/06/2024, 01/22 Dental Prophylaxis 05/11/2025 11/08/2024, 05/06/2024 Diabetes: Urine Protein Screening 06/28/2025 06/28/2024, 06/20/2024, 04/28/2023, Additional history exists Diabetes: Hemoglobin A1C 07/11/2025 025, 08/29/2024, 06/03/2024, Additional history exists SDOH Screening 10/11/2025 10/11/2024 Depression Screening 01/09/2026 01/09/2025, 01/10/20 Dental X-Ray: Full Mouth 01/23/2026 01/22/2023 Tobacco Screening 02/10/2026 02/10/2025 DTaP/Tdap/Td Vaccines (3 - Td or Tdap) 12/15/2033 12/16/2023, 08/19/2012, 10/24/2003, Additional history exists Pneumococcal Vaccine: 50+ Years Completed 04/05/2015, 03/13/2011, 04/09/2000, Additional history exists Hepatitis B Vaccines Completed 02/17/2017, 09/23/2016, 08/20/2016 Zoster Vaccines Completed 02/10/2022, 11/24, 04/11/2013 RSV Patients and Patients Aged 60 years or older Completed 09/03/2023 HIB Vaccines Aged Out No [...] Procedure Name Priority Date/Time Associated Diagnosis Comments POCT URINALYSIS DIPSTICK Routine 02/10/2025 2:22 PM EDT Type 2 diabetes mellitus with hyperglycemia, with long-term current use of insulin ([facility]) POCT GLUCOSE Routine 02/10/2025 2:22 PM EDT Type 2 diabetes mellitus with hyperglycemia, with long-term current use of insulin ([facility]) POCT GLUCOSE Routine 02/06/2025 8:28 AM EDT Type 2 diabetes mellitus with hyperglycemia, with long-term current use of insulin ([facility]) CASE PRESENTATION, DETAILED AND EXTENSIVE TREATMENT PLANNING Routine 01/20/2025 2:30 PM EDT 28 EXTRACTION, ERUPTED TOOTH OR EXPOSED ROOT (ELEVATION/FORCEPS REMOVAL) Routine 01/20/2025 2:30 PM EDT POCT GLYCATED HEMOGLOBIN, TOTAL Routine 01/09/2025 1:45 PM EDT Type 2 diabetes mellitus with hyperglycemia, with long-term current use of insulin ([facility]) PROPHYLAXIS - ADULT Routine 11/08/2024 3 :00 PM EDT Xerostomia Missing teeth, acquired Severe generalized gingival recession Staining of teeth ALBUMIN, RANDOM URINE W/CREATININE Routine 06/28/2024 11:15 [...] to Health Maintenance Results * (ABNORMAL) POCT glucose manually resulted (02/10/2025 2:22 PM EDT) Only the most recent of2 resultswithin the time period is included. Glucose Blood, POC 229(A) 60 - 200 mg/dL Blood Capillary blood specimen / Unknown 02/10/2025 2:22 PM EDT Result [facility] Oneida Michaud NP POINT OF CARE TEST ENTER/EDIT OR DERABLES Final Result * POCT urinalysis dipstick manually resulted (02/10/2025 2:22 PM EDT) Color, UA Yellow Clarity, UA Clear Glucose, UA Few 15 Comment:100 mg/dL Bilirubin, UA Negative Ketones, UA Negative Spec Grav, UA 1.025 Blood, UA Negative Negative, None Detected pH, UA 6.0 Protein, UA Negative Urobilinogen, UA 0.2 Leukocytes, UA Negative Negative, Rare, Trace Nitrite, UA Negative Negative, None Detected Urine 02/10/2025 2:22 PM EDT Oneida Michaud NP POINT OF CARE TEST ENTER/EDIT OR DERABLES Final Result * (ABNORMAL) POCT HGB A1C (01/09/2025 1:45 PM EDT) Hemoglobin A1C 6.9(A) 4.0 - 6.0 % QC Media Lot # [id number] Lot# Expiration Date Blood 01/09/2025 1:45 PM EDT Melinda Reza MD POINT OF CARE TEST EN TER/EDIT ORDERABLES Final Result * Albumin, Random Urine W/Creatinine (06/28/2024 11:15 AM EST) Creatinine, Urine 116.10 mg/dL [facility] Microalbumin Urine 32.0 mg/L [facility] Microalbum Creatinine Ratio Ur 27.5 <30 ug/mg cr [facility] Comment:Albumin/Creatinine R atio Reference Ranges: Normal: < 30 ug/mg creatinine Microalbuminuria: 30 - 300 ug/mg creatinineClinical Albuminuria: > 300 ug/mg creatinine 06/28/2024 11:1 5 AM EST 06/28/2024 1:06 PM EST us Melinda Reza MD LAB URINE ORDERABLES Final Result [facility] [address] [place] [phone] * (ABNORMAL) Lipid Panel, Standard (02/23/2024 9:23 AM EDT) Triglycerides 67 <150 mg/dL [facility] Comment:Desirable Triglyceri de: less than 150 mg/dLBorderline High Triglyceride 150-199 mg/dLHigh Triglyceride: 200-499 mg/dLVery High Triglyceride: greater than or equal to 5OO mg/dL Cholesterol 180 <200 mg/dL [facility] Comment:Desirable Cholestero l: less than 200 mg/dLBorderline High Cholesterol: 200-239 mg/dLHigh Cholesterol: greater than 239 mg/dL LDL Cholesterol Calculated 108(H) <100 mg/dL [facility] Comment:Desirable LDL: less than 100 mg/dLNear Optimal/Above Optimal LDL: 110- 129 mg/dLBorderline High LDL: 130-159 mg/dLHigh LDL: 160-189 mg/dLVery High LDL: greater than or equal to 190 mg/dL HDL Cholesterol 59 >40 mg/dL [facility] Comment:Desirable HDL: great er than 40 mg/dL Note: This HDL assay may give artificially low results in patients with liver disease. 02/23/2024 9:23 AM EDT 02/23/2024 11:20 AM EDT us Melinda Reza MD LAB BLOOD ORDERABLES Final Result [facility] [address] [place] [address] [phone] * BI Mammogram Screening Tomosynthesis Bilateral (01/29/2024 1:13 PM EDT) Anatomical Region Laterality Modality Breast Bilateral Mammography 01/29/2024 1:13 PM EDT Narrative 02/16/2024 9:00 PM EDT [facility] [address] [place] [address] Mammography Report Signed Patient: Ana Varghese MR#: [id number] [birth year] : 1940 Acct:[id number] Age/Sex: 83 / F ADM Date: 01/29/24 Loc: HO.MAMMO Attending Dr: Melinda Reza MD Ordering Physician: Melinda Krishnan MD Results: 0Incomplete: Needs Additional Imaging Evaluation Date of Service: 01/29/24 Follow Up: Additional Imagi ng Procedure(s): MM tomosynthesis screening BI Accession Number(s): [id number] cc: Melinda Krishnan MD EXAMINATION: MM SCREENING [...] MD in OV> 02/16/242055 DD/ 1313 TD/TT: Senior Lead Project Manager: Procedure Note Donotuseinterpreter, Image - 02/16/2024 [facility] [place] [address] Mammography Report Signed Patient: Donya Varghese#: [id number] [birth year] : 1940Acct:[id number] Age/Sex: 83 / FADM Date: 01/29/24 Loc: HO.MAMMO Attending Dr: Melinda Reza MD Ordering Physician: Melinda Krishnan MD Results: 0Incomplete: Needs Additional Imaging Evaluation Date of Service: 01/29/24Follow Up: Additional Imagi ng Procedure(s): MM tomosynthesis screening BI Accession Number(s): [id number] cc: Melinda Krishnan MD EXAMINATION: MM SCREENING [...] MD in OV> 02/16/242055 DD/ 1313 TD/TT: Senior Lead Project Manager: Melinda Reza MD IMG BI PROCEDURES Fin al Result from Last 3 Months or Most Recently Relevant to Health Maintenance Insurance [facility] USP OPTIONS (O D-SNP) [place] [id number] [facility] [employer] Care Teams Kindergarten Classroom Teacher Relationship Specialty Start Date End Date Melinda Krishnan MD [address] [place] [address] PCP - General Family Medicine 09/06/20 Rosmery Quiles PharmD [address] [place] [address] Pharmacist Internal Medicine 02/01/24
--- OUTSIDE RECORDS SUMMARY | 2025-04-19 15:47 | XMS_ITS | Encounter Summary ---
Author Organization [employer] Address 75 [facility] 7t [place] [address] Care Team Providers Care Steward/Stewardess Night Name Role Phone Melinda Krishnan MD Primary Care Provide r Rosmery Quiles PharmD Unavailable [phone]- [phone] Reason for Visit * Reason Comments Med Refill Encounter Details Date Type Department Care Team ([facility] Contact Info) Description 01/06/2023 Refill [facility] [address] [place], [place] [phone] Genesis Spencer FNP Vitamin D deficiency Social History Tobacco Use [...] Upcoming Encounters Date Type Department Care Team ([facility] Contact Info) Description 05/08/2025 1:45 PM EDT Telemedicine [facility]INE [address] [place] [address] Melinda Krishnan MD [address] [place] [address] [phone] 05/22/2025 12:45 PM EDT Office Visit [facility] ADULT DENTAL [address] [place], [place] [phone] Selma Green [address] [place], [place] [phone] 05/22/2025 1:30 PM EDT Medication Management [facility] [address] [place] [address] [phone] Rosmery Quiles PharmD [address] [place] [phone] documented as of this encounter Visit Diagnoses Diagnosis Vitamin D deficiency documented in this encounter Additional Health Concerns Assessment Noted Time PHQ-9 Depression Total Score: 0 11/13/19 23 2:46 PM EDT documented as of this encounter Care Teams Steward/Stewardess Night Relationship Specialty Start Date End Date Melinda Krishnan MD [address] [place] [address] [phone] PCP - General Family Medicine 09/06/20 Rosmery Quiles PharmD [address] [place] [address] [phone] Pharmacist Internal Medicine 02/01/24 documented as of this encounter
--- OUTSIDE RECORDS SUMMARY | 2025-04-19 15:47 | XMS_ITS | Encounter Summary ---
Author Organization [employer] Address [address] [facility] 7t [place] [address] Care Team Providers Care Web Analytics Developer Name Role Phone Melinda Krishnan MD Primary Care Provide r Rosmery Quiles PharmD Unavailable Reason for Visit * Reason Onset Date Comments rs no show appt 05/30/2024 Encounter Details Date Type Department Care Team ([facility] st Contact Info) Description 05/30/2024 Telephone [facility] ADULT DENTAL [address] [place] [address] Hardeep Fontenot, DMD [address] [place] [address] rs no show appt Social History Tobacco [...] the past 12 months, has t he [employer], gas, oil or water company threatened to [...] Info) Description 05/08/2025 1:45 PM EDT Telemedicine [facility] MEDICINE [address] [place] [address] Melinda Krishnan MD 230 [place] [address] 05/22/2025 12:45 PM EDT Office Visit [facility] ADULT DENTAL [address] [place] [address] Selma Green [address] [place] [address] 05/22/2025 1:30 PM EDT Medication Management [facility] MED[facility]INE [address] [place] [address] Rosmery Quiles PharmD 230 [place] [address] documented as of this encounter Goals Goal [...] documented as of this encounter Care Teams Web Analytics Developer Relationship Specialty Start Date End Date Melinda Krishnan MD [address] [place] [phone] PCP - General Family Medicine 09/06/20 Rosmery Quiles PharmD [address] [place] [phone] Pharmacist Internal Medicine 02/01/24 documented as of this encounter
--- OUTSIDE RECORDS SUMMARY | 2025-04-19 15:47 | XMS_ITS | Encounter Summary ---
Author Organization [employer] Address 75 [facility] 7t [place] [address] Care Team Providers Care Gymnasium Teacher Name Role Phone Melinda Krishnan MD Primary Care Provide r Rosmery Quiles PharmD Unavailable [phone] Reason for Visit * Reason Comments Med Refill Encounter Details Date Type Department Care Team (Late st Contact Info) Description 05/08/[address] [facility] MEDICINE 230 [place] [address] Melinda Krishnan MD [address] [place], [place] [phone] Pain in left shoulder Social History Tobacco [...] 05/08/2025 1:45 PM EDT Telemedicine [facility] MED[facility] [address] [place] [address] Melinda Krishnan MD [address] [place] [address] 05/22/2025 12:45 PM EDT Office Visit [facility] ADULT DENTAL [address] [place] [address] Norma, Selma [address] [place] [address] 05/22/2025 1:30 PM EDT Medication Management [facility] [address] [place] [address] Rosmery Quiles PharmD [address] [place] [phone] documented as of this encounter Visit Diagnoses Diagnosis Pain in left shoulder documented in this encounter Additional Health Concerns Assessment Noted Time PHQ-9 Depression Total Score: 0 11/13/19 23 2:46 PM EDT documented as of this encounter Care Teams Gymnasium Teacher Relationship Specialty Start Date End Date Melinda Krishnan MD [address] [place] [phone] PCP - General Family Medicine 09/06/20 Rosmery Quiles PharmD [address] [place] [address] Pharmacist Internal Medicine 02/01/24 documented as of this encounter
--- OUTSIDE RECORDS SUMMARY | 2025-04-19 15:47 | XMS_ITS | Encounter Summary ---
Author Organization [employer] Address 75 [facility] 7t [place] [address] Care Team Providers Care Wringer Machine Operator Name Role Phone Melinda Krishnan MD Primary Care Provide r Rosmery Quiles PharmD Unavailable Reason for Visit * Reason Comments Med Refill Encounter Details Date Type Department Care Team (Late st Contact Info) Description 01/06/[address] [facility] [address] [place] [phone] Julissa Camara MD [address] [place] [phone] Pain in left shoulder Social History Tobacco [...] Department Care Team (Late Contact Info) Description 05/08/2025 1:[address] [facility] [address] [place] [address] Melinda Krishnan MD 230 [place] [address] 05/22/2025 12:45 PM EDT Office Visit [facility] ADULT DENTAL [address] [place] [address] Rupert Greenaris 230 [place] [address] 05/22/2025 1:30 PM EDT Medication Management [facility] [address] [place] [address] Rosmery Quiles PharmD [address] [place] [address] documented as of this encounter Visit Diagnoses Diagnosis Pain in left shoulder documented in this encounter Additional Health Concerns Assessment Noted Time PHQ-9 Depression Total Score: 0 11/13/19 23 2:46 PM EDT documented as of this encounter Care Teams Wringer Machine Operator Relationship Specialty Start Date End Date Melinda Krishnan MD [address] [place] [address] [phone] PCP - General Family Medicine 09/06/20 Rosmery Quiles PharmD [address] [place] [address] [phone] Pharmacist Internal Medicine 02/01/24 documented as of this encounter
--- OUTSIDE RECORDS SUMMARY | 2025-04-19 15:47 | XMS_ITS | Encounter Summary ---
Author Organization [employer] Address 75 [facility] 7t [place] [address] Care Team Providers Care Senior It Engineer Name Role Phone Melinda Krishnan MD Primary Care Provide r Rosmery Quiles PharmD Unavailable [phone] Encounter Details Date Type Department Care Team (Late st Contact Info) Description 08/15/2022 Orders Only [facility] MEDICINE [address] [place] [phone] Silvia Fuentes LPN Social History Tobacco Use [...] Info) Description 05/08/2025 1:45 PM EDT Telemedicine [facility] MEDICINE [address] [place] [phone] Melinda Krishnan MD [address] [place] [address] [phone] 05/22/2025 12:45 PM EDT Office Visit [facility] ADULT DENTAL [address] [place] [phone] Selma Green [address] [place] [address] 05/22/2025 1:30 PM EDT Medication Management [facility] MEDICINE [address] [place] [address] Rosmery Quiles, HopeD [address] [place] [address] documented as of this encounter Visit Diagnoses Not on filedocumented in this encounter Care Teams Senior It Engineer Relationship Specialty Start Date End Date Melinda Krishnan MD [address] [place] [address] [phone] PCP - General Family Medicine 09/06/20 Rosmery Quiles PharmD [address] [place], [place] [phone] Pharmacist Internal Medicine 02/01/24 documented as of this encounter
--- OUTSIDE RECORDS SUMMARY | 2025-04-19 15:47 | XMS_ITS | Encounter Summary ---
Author Organization [employer] Address [address] [facility] [address] 7t [place] [address] Care Team Providers Care Trash Collector Name Role Phone Melinda Krishnan MD Primary Care Provide r Rosmery Quiles PharmD Unavailable [phone] Reason for Visit * Reason Comments Med Refill Encounter Details Date Type Department Care Team (Late st Contact Info) Description 12/29/2024 Refill [facility] MED[facility]INE 230 [place] [address] Melinda Krishnan MD 230 [place] [address] Type 2 diabetes mellitus with hyperglycemia, with long-term current use of insulin ([facility]) Social History Tobacco Use Types Packs/Day Years [...] the past 12 months, has t he [employer], gas, oil or water company threatened to [...] Info) Description 05/08/2025 1:45 PM EDT Telemedicine [facility] MEDICINE [address] [place] [address] Melinda Krishnan MD [address] [place] [address] 05/22/2025 12:45 PM EDT Office Visit [facility] ADULT DENTAL [address] [place] [address] Selma Green [address] [place] [address] 05/22/2025 1:30 PM EDT Medication Management [facility] MEDICINE [address] [place] [address] Rosmery Quiles PharmD [address] [place] [address] documented as of this encounter Goals Goal Patient Goal Type Associated Problems Recent Progress Patient-Stated? Author Hemoglobin A1c < 8 Result Component 6.9( 5 1:45 PM EDT) Danielle Guadarrama Record your blood sugar as directed Result Component No Danielle Sharma documented as of this encounter Visit Diagnoses Diagnosis Type 2 diabetes mellitus with hyperglycemia, with long-term current use of insulin ([facility]) documented in this encounter Additional Health Concerns Assessment Noted Time PHQ-9 Depression Total Score: 9 03/16/20 24 3:28 PM EDT documented as of this encounter Care Teams Trash Collector Relationship Specialty Start Date End Date Melinda Krishnan MD 230 [place] [address] PCP - General Family Medicine 09/06/20 Rosmery Quiles PharmD [address] [place] [address] Pharmacist Internal Medicine 02/01/24 documented as of this encounter
--- OUTSIDE RECORDS SUMMARY | 2025-04-19 15:47 | XMS_ITS | Encounter Summary ---
Author Organization [employer] Address [address] [facility] 7t [place] [address] Care Team Providers Care Occupational Safety Specialist Name Role Phone Melinda Krishnan MD Primary Care Provide r Rosmery Quiles PharmD Unavailable [phone] Encounter Details Date Type Department Care Team ([facility] Contact Info) Description 01/29/2023 Orders Only [facility] MEDICINE [address] [place] [address] [phone] Silvia Fuentes LPN Social History Tobacco Use [...] Upcoming Encounters Date Type Department Care Team ([facility] Contact Info) Description 05/08/2025 1:45 PM EDT Telemedicine [facility] MEDICINE [address] [place] [address] [phone] Melinda Krishnan MD 230 [place] [address] 05/22/2025 12:45 PM EDT Office Visit [facility] ADULT DENTAL [address] [place] [address] Selma Green [address] [place] [address] 05/22/2025 1:30 PM EDT Medication Management [facility] MED[facility]INE [address] [place] [address] Rosmery Quiles PharmD [address] [place] [phone] documented as of this encounter Visit Diagnoses Not on filedocumented in this encounter Additional Health Concerns Assessment Noted Time PHQ-9 Depression Total Score: 0 11/13/19 23 2:46 PM EDT documented as of this encounter Care Teams Occupational Safety Specialist Relationship Specialty Start Date End Date Melinda Krishnan MD [address] [place] [phone] PCP - General Family Medicine 09/06/20 Rosmery Quiles PharmD [address] [place] [phone] Pharmacist Internal Medicine 02/01/24 documented as of this encounter
--- OUTSIDE RECORDS SUMMARY | 2025-04-19 15:47 | XMS_ITS | Encounter Summary ---
Author Organization [employer] Address 75 [facility] 7t [place] [address] Care Team Providers Care Beverage Host Name Role Phone Melinda Krishnan MD Primary Care Provide r Rosmery Quiles PharmD Unavailable [phone] Reason for Visit * Reason Onset Date Comments Paperwork/Forms 10/15/2022 Encounter Details Date Type Department Care Team (Late st Contact Info) Description 10/15/2022 Telephone [facility] MEDICINE [address] [place] [address] Melinda Krishnan MD 230 [place] [address] Paperwork/Forms Social History Tobacco Use Types Packs/Day [...] Miscellaneous Notes * Telephone Encounter - Elisa Wang - 10/15/2022 1:27 PM EDT TC from Katia Daughter of pt stated pt need a PA for Lidocaine 5% patches. PCP DR. Villa documented in this encounter Plan of Treatment Upcoming Encounters Date Type Department Care Team (Late st Contact Info) Description 05/08/2025 1:45 PM EDT Telemedicine [facility] MEDICINE [address] [place] [address] Melinda Krishnan MD [address] [place] [address] 05/22/2025 12:45 PM EDT Office Visit [facility] ADULT DENTAL [address] [place] [address] Selma Green [address] [place] [address] 05/22/2025 1:30 PM EDT Medication Management [facility] MEDICINE [address] [place] [address] Rosmery Quiles PharmD [address] [place] [phone] documented as of this encounter Visit Diagnoses Not on filedocumented in this encounter Care Teams Beverage Host Relationship Specialty Start Date End Date Melinda Krishnan MD [address] [place] [phone] PCP - General Family Medicine 09/06/20 Rosmery Quiles, PharmD [address] [place] [phone] Pharmacist Internal Medicine 02/01/24 documented as of this encounter
--- OUTSIDE RECORDS SUMMARY | 2025-04-19 15:47 | XMS_ITS | Encounter Summary ---
Author Organization [employer] Address [address] [facility] [address] 7t [place] [address] Care Team Providers Care Tire Fabric Inspector Name Role Phone Melinda Krishnan MD Primary Care Provide r Rosmery Quiles PharmD Unavailable [phone] Encounter Details Date Type Department Care Team ([facility] st Contact Info) Description 05/22/2023 Abstract [facility] MEDICINE [address] [place] [address] Melinda Krishnan MD 230 [place] [address] Social History Tobacco Use Types Packs/Day Years [...] Info) Description 05/08/2025 1:45 PM EDT Telemedicine [facility] MEDICINE [address] [place] [address] Melinda Krishnan MD [address] [place] [address] 05/22/2025 12:45 PM EDT Office Visit [facility] ADULT DENTAL [address] [place] [address] Norma, Selma [address] [place] [address] 05/22/2025 1:30 PM EDT Medication Management [facility] MEDICINE [address] [place] [address] Rosmery Quiles PharmD [address] [place] [phone] documented as of this encounter Visit Diagnoses Not on filedocumented in this encounter Additional Health Concerns Assessment Noted Time PHQ-9 Depression Total Score: 0 11/13/19 23 2:46 PM EDT documented as of this encounter Care Teams Tire Fabric Inspector Relationship Specialty Start Date End Date Melinda Krishnan MD [address] [place] [address] PCP - General Family Medicine 09/06/20 Rosmery Quiles PharmD [address] [place] [address] Pharmacist Internal Medicine 02/01/24 documented as of this encounter
--- OUTSIDE RECORDS SUMMARY | 2025-04-19 15:47 | XMS_ITS | Encounter Summary ---
Author Organization [employer] Address 75 [facility] 7t [place] [address] Care Team Providers Care Epidemiology Intern Name Role Phone Melinda Krishnan MD Primary Care Provide r Rosmery Quiles PharmD Unavailable Reason for Visit * Reason Onset Date Comments Appointment Request 03/10/2025 Encounter Details Date Type Department Care Team ([facility] st Contact Info) Description 03/10/2025 Telephone [facility] [address] [place], [place] [phone] Melinda Krishnan MD 230 [place] [address] Appointment Request Social History Tobacco Use Types [...] encounter Miscellaneous Notes * Telephone Encounter - Fabienne Bone - 03/10/2025 12:05 PM EDT Pt's tc requesting that the appointment on 03/17 be rescheduled, as the pt cannot attend. The pt hasan operation on the same day. Contact pt at [phone] Need contract negotiation manager documented in this encounter Plan of Treatment Upcoming Encounters Date Type Department Care Team (Late st Contact Info) Description 05/08/2025 1:45 PM EDT Telemedicine [facility] [address] [place] [address] Melinda Krishnan MD 230 [place] [address] 05/22/2025 12:45 PM EDT Office Visit [facility] ADULT DENTAL [address] [place] [address] NormaSelma 230 [place] [address] 05/22/2025 1:30 PM EDT Medication Management [facility] [address] [place] [address] Rosmery Quiles PharmD 230 [place] [address] documented as of this encounter Goals Goal Patient Goal Type Associated Problems Recent Progress Patient-Stated? Author Hemoglobin A1c < 8 Result Component 6.9( 1:45 PM EDT) No Danielle Sharma Record your blood sugar as directed Result Component No Danielle Sharma documented as of this encounter Visit Diagnoses Not on filedocumented in this encounter Additional Health Concerns Assessment Noted Time PHQ-9 Depression Total Score: 8 01/10/20 25 1:43 PM EDT documented as of this encounter Care Teams Epidemiology Intern Relationship Specialty Start Date End Date Melinda Krishnan MD [address] [place] [address] PCP - General Family Medicine 09/06/20 Rosmery Quiles PharmD [address] [place] [phone] Pharmacist Internal Medicine 02/01/24 documented as of this encounter
--- OUTSIDE RECORDS SUMMARY | 2025-04-19 15:47 | XMS_ITS | Encounter Summary ---
Author Organization [employer] Address 75 [facility] 7t [place] [address] Care Team Providers Care Search Engine Optimizer Name Role Phone Melinda Krishnan MD Primary Care Provide r Rosmery Quiles PharmD Unavailable [phone] Reason for Visit * Reason Onset Date Comments Med Refill 08/17/2024 Encounter Details Date Type Department Care Team ([facility] st Contact Info) Description 08/17/2024 Telephone [facility] MEDICINE [address] [place] [address] Melinda Krishnan MD [address] [place] [address] Med Refill Social History Tobacco Use Types [...] the past 12 months, has t he [employer], gas, oil or water [employer] threatened to shut off services in your [...] 10:04 AM EST Medication was sent to [facility] Pharmacy on 08/14/24. * Telephone Encounter - Alden Degroot - 08/17/2024 9:52 AM EST TC from pt requesting medication refill. Medications needing refill : glipiZIDE (Glucotrol) 5 MG tablet To be sent to: [facility] pharmacy documented in this encounter Plan of Treatment Upcoming Encounters Date Type Department Care Team (Late st Contact Info) Description 05/08/2025 1:45 PM EDT Telemedicine [facility] MEDICINE [address] [place] [address] Melinda Krishnan MD [address] [place] [address] 05/22/2025 12:45 PM EDT Office Visit [facility] ADULT DENTAL [address] [place] [address] Rupert Greenaris [address] [place] [address] 05/22/2025 1:30 PM EDT Medication Management [facility] MEDICINE [address] [place] [address] Rosmery Quiles PharmD [address] [place] [address] documented as of this encounter Goals Goal [...] documented as of this encounter Care Teams Search Engine Optimizer Relationship Specialty Start Date End Date Melinda Krishnan MD [address] [place] [address] PCP - General Family Medicine 09/06/20 Rosmery Quiles PharmD [address] [place] [address] Pharmacist Internal Medicine 02/01/24 documented as of this encounter
--- OUTSIDE RECORDS SUMMARY | 2025-04-19 15:47 | XMS_ITS | Encounter Summary ---
Author Organization [employer] Address 75 [facility] 7t [place] [address] Care Team Providers Care Moss Picker Name Role Phone Melinda Krishnan MD Primary Care Provide r Rosmery Quiles PharmD Unavailable Reason for Visit * Reason Onset Date Comments Appointment Request 07/11/2024 Encounter Details Date Type Department Care Team ([facility] st Contact Info) Description 07/11/2024 Telephone [facility] MEDICINE [address] [place], [place] [phone] Melinda Krishnan MD [address] [place] [address] Appointment Request Social History Tobacco Use Types [...] the past 12 months, has t he [employer], gas, oil or water [employer] threatened to shut off services in your [...] 07/11. Contact pt daughter to r/s at [phone] documented in this encounter Plan of Treatment Upcoming Encounters Date Type Department Care Team (Late st Contact Info) Description 05/08/2025 1:45 PM EDT Telemedicine [facility] MEDICINE [address] [place] [phone] Melinda Krishnan MD [address] [place] [address] 05/22/2025 12:45 PM EDT Office Visit [facility] ADULT DENTAL [address] [place] [address] Selma Green [address] [place] [address] 05/22/2025 1:30 PM EDT Medication Management [facility] MEDICINE [address] [place] [address] Rosmery Quiles PharmD [address] [place] [address] documented as of this encounter Goals Goal Patient Goal Type Associated Problems Recent Progress Patient-Stated? Author Hemoglobin A1c < 8 Result Component 6.9( 5 1:45 PM EDT) No Danielle Sharma Record your blood sugar as directed Result Component No Danielle Sharma documented as of this encounter Visit Diagnoses Not on filedocumented in this encounter Additional Health Concerns Assessment Noted Time PHQ-9 Depression Total Score: 9 03/16/20 24 3:28 PM EDT documented as of this encounter Care Teams Moss Picker Relationship Specialty Start Date End Date Melinda Krishnan MD [address] [place] [address] PCP - General Family Medicine 09/06/20 Rosmery Quiles, PharmD [address] [place] [address] Pharmacist Internal Medicine 02/01/24 documented as of this encounter
--- OUTSIDE RECORDS SUMMARY | 2025-04-19 15:47 | XMS_ITS | Encounter Summary ---
Author Organization [employer] Address [address] [facility] [address] 7t [place] [address] Care Team Providers Care Friction Paint Machine Tender Name Role Phone Melinda Krishnan MD Primary Care Provide r Rosmery Quiles PharmD Unavailable [phone]- [phone] Reason for Visit * Reason Comments Med Refill Encounter Details Date Type Department Care Team (Late st Contact Info) Description 07/09/2023 Refill [facility] MEDICINE [address] [place] [address] Jimena Dutton, 230 [place], [place] [phone] Seborrheic dermatitis of scalp Social History Tobacco [...] Description 05/08/2025 1:45 PM EDT Telemedicine [facility] MEDICINE [address] [place] [address] Melinda Krishnan MD [address] [place] [address] 05/22/2025 12:45 PM EDT Office Visit [facility] ADULT DENTAL [address] [place] [address] Norma, Selma 230 [place] [address] 05/22/2025 1:30 PM EDT Medication Management [facility] MEDICINE [address] [place] [address] Rosmery Quiles, PharmD [address] [place] [address] documented as of this encounter Visit Diagnoses Diagnosis Seborrheic dermatitis of scalp Other seborrheic dermatitis documented in this encounter Additional Health Concerns Assessment Noted Time PHQ-9 Depression Total Score: 0 11/13/19 23 2:46 PM EDT documented as of this encounter Care Teams Friction Paint Machine Tender Relationship Specialty Start Date End Date Melinda Krishnan MD [address] [place] [phone] PCP - General Family Medicine 09/06/20 Rosmery Quiles, PharmD 230 [place] [address] Pharmacist Internal Medicine 02/01/24 documented as of this encounter
--- OUTSIDE RECORDS SUMMARY | 2025-04-19 15:47 | XMS_ITS | Encounter Summary ---
Author Organization [employer] Address [address] [facility] [address] [address] 7t [place] [address] Care Team Providers Care Parquetry Floor Layer Name Role Phone Melinda Krishnan MD Primary Care Provide r Rosmery Quiles PharmD Unavailable [phone]- [phone] Reason for Visit * Reason Onset Date Comments Med Refill 06/11/2023 Encounter Details Date Type Department Care Team ([facility] st Contact Info) Description 06/11/2023 Telephone [facility] MEDICINE 230 [place], [place] [phone] Melinda Krishnan MD 230 [place], [place] [phone] Med Refill Social History Tobacco Use Types [...] 50 MG tablet to be sent to [facility] pharmacy documented in this encounter Plan of Treatment Upcoming Encounters Date Type Department Care Team (Late st Contact Info) Description 05/08/2025 1:45 PM EDT Telemedicine [facility] MEDICINE [address] [place] [address] Melinda Krishnan MD 230 [place] [address] 05/22/2025 12:45 PM EDT Office Visit [facility] ADULT DENTAL [address] [place] [address] Selma Green 230 [place] [address] 05/22/2025 1:30 PM EDT Medication Management [facility] MEDICINE [address] [place] [address] Rosmery Quiles PharmD 230 [place] [address] documented as of this encounter Visit Diagnoses Not on filedocumented in this encounter Additional Health Concerns Assessment Noted Time PHQ-9 Depression Total Score: 0 11/13/19 23 2:46 PM EDT documented as of this encounter Care Teams Parquetry Floor Layer Relationship Specialty Start Date End Date Melinda Krishnan MD [address] [place] [address] PCP - General Family Medicine 09/06/20 Rosmery Quiles, HopeD [address] [place] [address] Pharmacist Internal Medicine 02/01/24 documented as of this encounter
--- OUTSIDE RECORDS SUMMARY | 2025-04-19 15:47 | XMS_ITS | Encounter Summary ---
Author Organization [employer] Address [address] [facility] 7t [place] [address] Care Team Providers Care Salesperson Furniture Name Role Phone Melinda Krishnan MD Primary Care Provide r Rosmery Quiles PharmD Unavailable [phone]- [phone] Reason for Visit * Reason Comments Med Refill Encounter Details Date Type Department Care Team ([facility] st Contact Info) Description 05/11/2023 Refill [facility] MEDICINE 230 [place] [address] Melinda Krishnan MD 230 [place], [place] [phone] Social History Tobacco Use Types Packs/Day Years [...] Info) Description 05/08/2025 1:45 PM EDT Telemedicine [facility] MEDICINE [address] [place] [address] Melinda Krishnan MD [address] [place] [address] 05/22/2025 12:45 PM EDT Office Visit [facility] ADULT DENTAL [address] [place] [phone] Norma, Selma 230 [place] [address] 05/22/2025 1:30 PM EDT Medication Management [facility] MEDICINE [address] [place] [address] Rosmery Quiles PharmD [address] [place] [address] documented as of this encounter Visit Diagnoses Not on filedocumented in this encounter Additional Health Concerns Assessment Noted Time PHQ-9 Depression Total Score: 0 11/13/19 23 2:46 PM EDT documented as of this encounter Care Teams Salesperson Furniture Relationship Specialty Start Date End Date Melinda Krishnan MD [address] [place] [address] PCP - General Family Medicine 09/06/20 Rosmery Quiles PharmD 230 [place] [address] Pharmacist Internal Medicine 02/01/24 documented as of this encounter
--- OUTSIDE RECORDS SUMMARY | 2025-04-19 15:47 | XMS_ITS | Encounter Summary ---
Author Organization [employer] Address [address] [facility] 7t [place] [address] Care Team Providers Care Immunology Specialist Name Role Phone Melinda Krishnan MD Primary Care Provide r Rosmery Quiles PharmD Unavailable [phone]- [phone] Reason for Visit * Reason Comments Med Refill Encounter Details Date Type Department Care Team (Late st Contact Info) Description 06/11/2023 Refill [facility] MEDICINE 230 [place] [address] Melinda Krishnan MD 230 [place], [place] [phone] Pain in left shoulder Social History Tobacco [...] Info) Description 05/08/2025 1:45 PM EDT Telemedicine [facility] MEDICINE [address] [place] [address] Melinda Krishnan MD [address] [place] [address] 05/22/2025 12:45 PM EDT Office Visit [facility] ADULT DENTAL [address] [place] [address] Norma, Selma 230 [place] [address] 05/22/2025 1:30 PM EDT Medication Management [facility] MEDICINE [address] [place] [address] Rosmery Quiles PharmD [address] [place] [address] documented as of this encounter Visit Diagnoses Diagnosis Pain in left shoulder documented in this encounter Additional Health Concerns Assessment Noted Time PHQ-9 Depression Total Score: 0 11/13/19 23 2:46 PM EDT documented as of this encounter Care Teams Immunology Specialist Relationship Specialty Start Date End Date Melinda Krishnan MD [address] [place] [address] PCP - General Family Medicine 09/06/20 Rosmery Quiles PharmD 230 [place] [address] Pharmacist Internal Medicine 02/01/24 documented as of this encounter
--- OUTSIDE RECORDS SUMMARY | 2025-04-19 15:47 | XMS_ITS | Encounter Summary ---
Author Organization [employer] Address [address] [facility] 7t [place] [address] Care Team Providers Care Playground Official Name Role Phone Melinda Krishnan MD Primary Care Provide r Rosmery Quiles PharmD Unavailable [phone]- [phone] Reason for Visit * Reason Onset Date Comments Med Refill 09/28/2024 Encounter Details Date Type Department Care Team ([facility] st Contact Info) Description 09/28/2024 Telephone [facility] MEDICINE 230 [place] [address] Melinda Krishnan MD 230 [place] [address] Med Refill Social History Tobacco Use Types [...] the past 12 months, has t he [employer], gas, oil or water [employer] threatened to shut off services in your [...] 2.5 % cream To be sent to: [facility] documented in this encounter Plan of Treatment Upcoming Encounters Date Type Department Care Team (Late st Contact Info) Description 05/08/2025 1:45 PM EDT Telemedicine [facility] MEDICINE [address] [place] [address] Melinda Krishnan MD 230 [place] [address] 05/22/2025 12:45 PM EDT Office Visit [facility] ADULT DENTAL 230 [place], [place] [phone] Rupert Greenaris 230 [place] [address] 05/22/2025 1:30 PM EDT Medication Management [facility] MEDICINE 230 [place] [address] Rosmery Quiles, Raisa 230 [place] [address] documented as of this encounter Goals Goal [...] documented as of this encounter Care Teams Playground Official Relationship Specialty Start Date End Date Melinda Krishnan MD [address] [place] [address] [phone] PCP - General Family Medicine 09/06/20 Rosmery Quiles, Raisa [address] [place] [address] [phone] Pharmacist Internal Medicine 02/01/24 documented as of this encounter
--- OUTSIDE RECORDS SUMMARY | 2025-04-19 15:47 | XMS_ITS | Encounter Summary ---
Author Organization [employer] Address 75 [facility] 7t [place] [address] Care Team Providers Care Loom Stop Checker Name Role Phone Melinda Krishnan MD Primary Care Provide r Rosmery Quiles PharmD Unavailable Reason for Visit * Reason Onset Date Comments Appointment Request 02/15/2025 Encounter Details Date Type Department Care Team ([facility] st Contact Info) Description 02/15/2025 Telephone [facility] MEDICINE 230 [place], [place] [phone] Melinda Krishnan MD 230 [place] [address] Appointment Request Social History Tobacco Use Types [...] the past 12 months, has t he [employer], gas, oil or water company threatened to [...] encounter Miscellaneous Notes * Telephone Encounter - Willie Murphy - 02/15/2025 11:47 AM EDT Tc from pt daughter requesting to change apt to from 1:00pm - 2:00pm on the . Any questions contact at [phone] documented in this encounter Plan of Treatment Upcoming Encounters Date Type Department Care Team (Late st Contact Info) Description 05/08/2025 1:45 PM EDT Telemedicine [facility] MEDICINE 230 [place] [address] Melinda Krishnan MD 230 [place] [address] 05/22/2025 12:45 PM EDT Office Visit [facility] ADULT DENTAL 230 [place] [address] Selma Green 230 [place] [address] 05/22/2025 1:30 PM EDT Medication Management [facility] MEDICINE 230 [place] [address] Rosmery Quiles PharmD 230 [place] [address] documented as of this encounter Goals Goal [...] documented as of this encounter Care Teams Loom Stop Checker Relationship Specialty Start Date End Date Melinda Krishnan MD [address] [place] [address] PCP - General Family Medicine 09/06/20 Rosmery Quiles PharmD [address] [place] [address] Pharmacist Internal Medicine 02/01/24 documented as of this encounter
--- OUTSIDE RECORDS SUMMARY | 2025-04-19 15:47 | XMS_ITS | Encounter Summary ---
Author Organization [employer] Address 75 [facility] 7t [place] [address] Care Team Providers Care Gang Boss Name Role Phone Melinda Krishnan MD Primary Care Provide r Rosmery Quiles PharmD Unavailable [phone]- [phone] Reason for Visit * Reason Onset Date Comments Med Refill 07/18/2024 Encounter Details Date Type Department Care Team ([facility] st Contact Info) Description 07/18/2024 Telephone [facility] MEDICINE 230 [place] [address] Melinda Krishnan MD 230 [place] [address] Med Refill Social History Tobacco Use Types [...] the past 12 months, has t he [employer], gas, oil or water company threatened to [...] MG/0.5ML solution auto-injector To be sent to: [facility] [place], [place] - [address] [place] [address] documented in this encounter Plan of Treatment Upcoming Encounters Date Type Department Care Team (Late st Contact Info) Description 05/08/2025 1:45 PM EDT Telemedicine [facility] MEDICINE 230 [place], [place] [phone] Melinda Krishnan MD 230 [place] [address] 05/22/2025 12:45 PM EDT Office Visit [facility] ADULT DENTAL 230 [place] [address] Selma Green 230 [place] [address] 05/22/2025 1:30 PM EDT Medication Management [facility] MEDICINE 230 [place] [address] Rosmery Quiles PharmD 230 [place] [address] documented as of this encounter Goals Goal Patient Goal Type Associated Problems Recent Progress Patient-Stated? Author Hemoglobin A1c < 8 Result Component 6.9( 1:45 PM EDT) Danielle Guadarrama Record your blood sugar as directed Result Component No Danielle Sharma documented as of this encounter Visit Diagnoses Not on filedocumented in this encounter Additional Health Concerns Assessment Noted Time PHQ-9 Depression Total Score: 9 03/16/20 24 3:28 PM EDT documented as of this encounter Care Teams Gang Boss Relationship Specialty Start Date End Date Melinda Krishnan MD [address] [place] [phone] PCP - General Family Medicine 09/06/20 Rosmery Quiles, Raisa [address] [place] [address] Pharmacist Internal Medicine 02/01/24 documented as of this encounter
--- OUTSIDE RECORDS SUMMARY | 2025-04-19 15:47 | XMS_ITS | Encounter Summary ---
Author Organization [employer] Address [address] [facility] [address] 7t [place] [address] Care Team Providers Care Aviation Boatswain'S Mate Name Role Phone Melinda Krishnan MD Primary [...] (Late st Contact Info) Description 08/13/2022 Telephone [facility] ADULT DENTAL 230 [place], [place] [phone] Leo Kong DMD [address] [place], [place] [phone] Appointment (Patient came in on 06/18 and [...] Telemedicine [facility] MEDICINE [address] [place] [address] Melinda Krishnan MD [address] [place] [address] 05/22/2025 12:45 PM EDT Office Visit [facility] ADULT DENTAL [address] [place] [address] Selma Green 230 [place] [address] 05/22/2025 1:30 PM EDT Medication Management [facility] MEDICINE [address] [place] [address] Rosmery Quiles PharmD [address] [place] [address] documented as of this encounter Visit Diagnoses Not on filedocumented in this encounter Care Teams Aviation Boatswain'S Mate Relationship Specialty Start Date End Date Melinda Krishnan MD [address] [place] [address] PCP - General Family Medicine 09/06/20 Rosmery Quiles PharmD [address] [place] [address] Pharmacist Internal Medicine 02/01/24 documented as of this encounter
--- OUTSIDE RECORDS SUMMARY | 2025-04-19 15:47 | XMS_ITS | Encounter Summary ---
Author Organization [employer] Address 75 [facility] 7t [place] [address] Care Team Providers Care Airport Traffic Controller Name Role Phone Melinda Krishnan MD Primary Care Provide r Rosmery Quiles PharmD Unavailable [phone]- [phone] Reason for Visit * Reason Onset Date Comments Durable Medical Equipment 12/25/2023 Encounter Details Date Type Department Care Team ([facility] st Contact Info) Description 12/25/2023 Telephone [facility] MEDICINE 230 [place], [place] [phone] Melinda Krishnan MD 230 [place] [address] Durable Medical Equipment Social History Tobacco Use [...] to reflect need. Thank you Tc from [facility] is requesting an rx for a rollator with seat to be faxed to [phone]. * Telephone Encounter - Sheryl Nolasco - 12/25/2023 2:48 PM EDT Tc from [facility] is requesting an rx for a rollator with seat to be faxed to [phone]. documented in this encounter Plan of Treatment Upcoming Encounters Date Type Department Care Team (Late st Contact Info) Description 05/08/2025 1:45 PM EDT Telemedicine [facility] MEDICINE [address] [place] [address] Melinda Krishnan MD 230 [place] [address] 05/22/2025 12:45 PM EDT Office Visit [facility] ADULT DENTAL [address] [place] [address] Selma Green [address] [place] [address] 05/22/2025 1:30 PM EDT Medication Management [facility] MEDICINE [address] [place] [address] Rosmery Quiles, Raisa 230 [place] [address] documented as of this encounter Visit Diagnoses Not on filedocumented in this encounter Additional Health Concerns Assessment Noted Time PHQ-9 Depression Total Score: 0 11/13/19 23 2:46 PM EDT documented as of this encounter Care Teams Airport Traffic Controller Relationship Specialty Start Date End Date Melinda Krishnan MD [address] [place] [address] [phone] PCP - General Family Medicine 09/06/20 Rosmery Quiles, Raisa [address] [place] [phone] Pharmacist Internal Medicine 02/01/24 documented as of this encounter
--- OUTSIDE RECORDS SUMMARY | 2025-04-19 15:47 | XMS_ITS | Encounter Summary ---
Author Organization [id number] Address 75 [facility] 7t [place] [address] Care Team Providers Care Immigration Coordinator Name Role Phone Melinda Krishnan MD Primary Care Provide r Rosmery Quiles PharmD Unavailable Reason for Visit * Reason Comments Med Refill Encounter Details Date Type Department Care Team ([facility] Contact Info) Description 10/13/2022 Refill [facility] [address] [place] [address] Julissa Camara MD [address] [place] [address] Social History Tobacco Use Types Packs/Day Years [...] ([facility] Contact Info) Description 05/08/2025 1:45 PM EDT Telemedicine [facility] MEDICINE [address] [place] [address] Melinda Krishnan MD 230 [place] [address] 05/22/2025 12:45 PM EDT Office Visit [facility] ADULT DENTAL 230 [place] [address] Selma Green [address] [place] [address] 05/22/2025 1:30 PM EDT Medication Management [facility] MEDICINE 230 [place] [address] Rosmery Quiles, PharmD [address] [place] [address] documented as of this encounter Visit Diagnoses Not on filedocumented in this encounter Care Teams Immigration Coordinator Relationship Specialty Start Date End Date Melinda Krishnan MD [address] [place] [address] [phone] PCP - General Family Medicine 09/06/20 Rosmery Quiles, PharmD [address] [place] [address] Pharmacist Internal Medicine 02/01/24 documented as of this encounter
--- OUTSIDE RECORDS SUMMARY | 2025-04-19 15:47 | XMS_ITS | Encounter Summary ---
Author Organization [employer] Address [address] [facility] [address] 7t [place] [address] Care Team Providers Care Water Use Inspector Name Role Phone Melinda Krishnan MD Primary Care Provide r Rosmery Quiles PharmD Unavailable [phone]- [phone] Encounter Details Date Type Department Care Team (Late Contact Info) Description 03/03/2023 Orders Only [facility] MED [facility] PEDS [address] [place], [place] [phone] Jimena West LPN Social History Tobacco Use [...] Upcoming Encounters Date Type Department Care Team ([facility] Contact Info) Description 05/08/2025 1:45 PM EDT Telemedicine [facility] MEDICINE [address] [place] [address] Melinda Krishnan MD [address] [place] [address] 05/22/2025 12:45 PM EDT Office Visit [facility] ADULT DENTAL [address] [place] [address] Selma Green [address] [place] [address] 05/22/2025 1:30 PM EDT Medication Management [facility] MEDICINE [address] [place] [address] Rosmery Quiles PharmD 230 [place] [address] documented as of this encounter Visit Diagnoses Not on filedocumented in this encounter Additional Health Concerns Assessment Noted Time PHQ-9 Depression Total Score: 0 11/13/19 23 2:46 PM EDT documented as of this encounter Care Teams Water Use Inspector Relationship Specialty Start Date End Date Melinda Krishnan MD [address] [place] [address] PCP - General Family Medicine 09/06/20 Rosmery Quiles PharmD [address] [place] [address] [phone] Pharmacist Internal Medicine 02/01/24 documented as of this encounter
== END 2025-04-19 13:56 | disposition home or self-care (01) ==
LOC: HO.HGS 13:23
PROVIDERS: PCP Internal Medicine; Visit Provider Surgery
DX: D17.1 Benign lipomatous neoplasm of skin and subcutaneous tissue of trunk (principal)
CPT/HCPCS: 11403

== ENCOUNTER 2025-04-26 09:06 | Outpatient (REF) | payer OTHER, SELFPAY ==
--- OUTSIDE RECORDS SUMMARY | 2025-04-26 09:47 | XMS_ITS | Encounter Summary ---
Author Organization [employer] Address [address] [facility] [address] 7t [place] [address] Care Team Providers Care Photo Machine Operator Name Role Phone Melinda Krishnan [...] (Late st Contact Info) Description 08/13/2022 Telephone [facility] ADULT DENTAL 230 [place], [place] [phone] Leo Kong DMD 505 [place], [place] [phone] Appointment (Patient came in on 06/18 and [...] Info) Description 05/08/2025 1:45 PM EDT Telemedicine [facility] MEDICINE [address] [place] [address] Melinda Krishnan MD [address] [place] [address] 05/22/2025 12:45 PM EDT Office Visit [facility] ADULT DENTAL [address] [place] [address] Selma Green 230 [place] [address] 05/22/2025 1:30 PM EDT Medication Management [facility] MEDICINE [address] [place] [address] Rosmery Quiles PharmD [address] [place] [address] documented as of this encounter Visit Diagnoses Not on filedocumented in this encounter Care Teams Photo Machine Operator Relationship Specialty Start Date End Date Melinda Krishnan MD [address] [place] [address] PCP - General Family Medicine 09/06/20 Rosmery Quiles PharmD [address] [place] [address] Pharmacist Internal Medicine 02/01/24 documented as of this encounter
--- OUTSIDE RECORDS SUMMARY | 2025-04-26 09:47 | XMS_ITS | Encounter Summary ---
Author Organization [employer] Address [address] [facility] [address] 7t [place] [address] Care Team Providers Care Saddle Stitching Machine Operator Name Role Phone Melinda Krishnan MD Primary Care Provide r Rosmery Quiles PharmD Unavailable [phone]- [phone] Encounter Details Date Type Department Care Team (Late st Contact Info) Description 04/19/2025 Orders Only GENERIC EXTERNAL DATA DEPARTMENT Provider, Generic External Data Social History Tobacco Use Types Packs/Day Years [...] 05/08/2025 1:45 PM EDT Telemedicine [facility] [address] [place] [address] Melinda Krishnan MD [address] [place] [address] 05/22/2025 12:45 PM EDT Office Visit [facility] [address] [place] [phone] Norma, Sel[place] 230 [place] [address] 05/22/2025 1:30 PM EDT Medication Management [facility] [address] [place] [address] Rosmery Quiles, PharmD [address] [place] [address] documented as of this encounter Goals Goal Patient Goal Type Associated Problems Recent Progress Patient-Stated? Author Hemoglobin A1c < 8 Result Component 6.9( 1:45 PM EDT) No Danielle Sharma Record your blood sugar as directed Result Component No Danielle Sharma documented as of this encounter Procedures Procedure Name Priority Date/Time Associated Diagnosis Comments GROSS AND MICROSCOPIC LEVEL 3 Routine 04/19/2025 2:00 PM EDT documented in this encounter Results * Gross and Microscopic Level 3 (04/19/2025 2:00 PM EDT) 04/19/2025 2:00 PM EDT 04/20/2025 7:21 AM EDT [facility] - 04/22/2025 9:21 AM EDT ----- ------- Name: Ana Varghese Age/Sex: 84/F : 1940 Unit#: [id number] Attend Dr: Alton Adames MD Re04/19/25 Status: DEP REF Location: HO.LNP Disch: ----- ------- SPEC : [id number] RECD: 04/20/25 STATUS: SANDRA NAOMI NUM: [id number] SHELEA: 04/19/25-[address]: Alton Adames MD ENTERED: 04/20/25 SP TYPE: Surgical OTHR DR: Melinda Krishnan MD ORDERED: Gross Micro L3 Diagnosis Soft tissue, back, excision: Mature lobulated adipose tissue consistent with lipoma. Clinical History Lipoma of back Microscopic Description Microscopic sections reviewed. Material Received Lipoma of back Gross Description Received in formalin labeled lipoma of back are irregular fragments of coarsely lobulated yellow-white adipose tissue forming an aggregate measuring 4.5 x 3.3 x 1.1 cm. A few of the fragments are covered by a thin translucent membrane. Sectioning reveals a homogeneous yellow-white, smooth cut surface with no gross evidence of fat necrosis that is traversed by bands of pink-patricio fibrous tissue. Celery Cutter sections are submitted for microscopic examination in cassettes A1 and A2, 2 pieces each. ([facility]) IHC S/NG Disclaimer NOTE: Unless otherwise stated, all tissue is formalin-fixed and paraffin-embedded. Some or all of the immunohistochemical tests reported herein may have been developed and their performance characteristics determined by [facility]. They have not been cleared or approved by the U.S. Food and Drug Administration (FDA). However, the FDA has determined that such clearance or approval is not necessary. This laboratory is certified under the Clinical Laboratory Improvement Amendments of 1988 (CLIA) as qualified to perform high complexity clinical laboratory testing. Copies To: Melinda Krishnan MD [address] [address] CONTINUED ON NEXT PAGE ----- ------- Name: Ana Varghese Age/Sex: 84/F : 1940 Unit#: [id number] Attend Dr: Alton Adames MD Re04/19/25 Status: DEP REF Location: HO.LNP Disch: ----- ------- SPEC : [id number] RECD: 04/20/25 STATUS: SANDRA SALGADO NUM: [id number] SHEELA: 04/19/25-[address]: Alton Adames MD ENTERED: 04/20/25 SP TYPE: Surgical OTHR DR: Melinda Krishnan MD ORDERED: Gross Micro L3 Copies To: (Continued) Alton Adames MD [facility] [address] [place] [address] ----- ------- Signed (signature on file) Janae Quiroga MD 04/22/25920 ----- ------- END OF REPORT us Generic External Data Provider LAB CYTOLOGY MIKAYLA COREAS Final Result [facility] [address] [place] [address] [phone] documented in this encounter Visit Diagnoses Not on filedocumented in this encounter Additional Health Concerns Assessment Noted Time PHQ-9 Depression Total Score: 8 01/10/20 25 1:43 PM EDT documented as of this encounter Care Teams Saddle Stitching Machine Operator Relationship Specialty Start Date End Date Melinda Krishnan MD [address] [place] [address] PCP - General Family Medicine 09/06/20 Rosmery Quiles, HopeD [address] [place] [phone] Pharmacist Internal Medicine 02/01/24 documented as of this encounter
--- OUTSIDE RECORDS SUMMARY | 2025-04-26 09:47 | XMS_ITS | Encounter Summary ---
Author Organization [employer] Address [address] [facility] [address] 7t [place] [address] Care Team Providers Care Occupational Health Coordinator Name Role Phone Melinda Krishnan MD Primary Care Provide r Rosmery Quiles PharmD Unavailable [phone]- [phone] Reason for Visit * Reason Comments Med Refill Encounter Details Date Type Department Care Team (Late st Contact Info) Description 12/29/2024 Refill [facility] [address] [place] [address] Melinda Krishnan MD [address] [place] [address] Type 2 diabetes mellitus with hyperglycemia, with long-term current use of insulin ([facility]) Social History Tobacco Use Types Packs/Day [...] the past 12 months, has t he [employer], gas, oil or water company threatened to [...] EDT Telemedicine [facility] [address] [place] [address] Melinda Krishnan MD [address] [place] [address] 05/22/2025 12:45 PM EDT Office Visit [facility] ADULT DENTAL [address] [place] [address] Selma Green [address] [place] [address] 05/22/2025 1:30 PM EDT Medication Management [facility] [address] [place] [address] Rosmery Quiles PharmD [address] [place] [address] documented as of this encounter Goals Goal Patient Goal Type Associated Problems Recent Progress Patient-Stated? Author Hemoglobin A1c < 8 Result Component 6.9( 5 1:45 PM EDT) Danielle Guadarrama Record your blood sugar as directed Result Component No Danielle Sharma documented as of this encounter Visit Diagnoses Diagnosis Type 2 diabetes mellitus with hyperglycemia, with long-term current use of insulin (HCC) documented in this encounter Additional Health Concerns Assessment Noted Time PHQ-9 Depression Total Score: 9 03/16/20 24 3:28 PM EDT documented as of this encounter Care Teams Occupational Health Coordinator Relationship Specialty Start Date End Date Melinda Krishnan MD 230 [place] [address] PCP - General Family Medicine 09/06/20 Rosmery Quiles PharmD [address] [place] [address] Pharmacist Internal Medicine 02/01/24 documented as of this encounter
--- OUTSIDE RECORDS SUMMARY | 2025-04-26 09:47 | XMS_ITS | Encounter Summary ---
Author Organization [employer] Address 75 [facility] 7t [place] [address] Care Team Providers Care Window/Distribution Clerk Name Role Phone Melinda Krishnan MD Primary Care Provide r Rosmery Quiles PharmD Unavailable [phone]- [phone] Reason for Visit * Reason Comments Med Refill Encounter Details Date Type Department Care Team ([facility] Contact Info) Description 01/06/2023 Refill [facility] PEDS [address] [place], [place] [phone] Genesis Spencer FNP Vitamin D deficiency Social [...] Upcoming Encounters Date Type Department Care Team ([facility] Contact Info) Description 05/08/2025 1:45 PM EDT Telemedicine [facility] [address] [place] [address] Melinda Krishnan MD [address] [place] [address] [phone] 05/22/2025 12:45 PM EDT Office Visit [facility] ADULT DENTAL [address] [place], [place] [phone] Selma Green [address] [place], [place] [phone] 05/22/2025 1:30 PM EDT Medication Management [facility] [address] [place] [address] [phone] Rosmery Quiles PharmD [address] [place] [address] documented as of this encounter Visit Diagnoses Diagnosis Vitamin D deficiency documented in this encounter Additional Health Concerns Assessment Noted Time PHQ-9 Depression Total Score: 0 11/13/19 23 2:46 PM EDT documented as of this encounter Care Teams Window/Distribution Clerk Relationship Specialty Start Date End Date Melinda Krishnan MD [address] [place] [address] [phone] PCP - General Family Medicine 09/06/20 Rosmery Quiles PharmD [address] [place] [address] [phone] Pharmacist Internal Medicine 02/01/24 documented as of this encounter
--- OUTSIDE RECORDS SUMMARY | 2025-04-26 09:47 | XMS_ITS | Encounter Summary ---
Author Organization [employer] Address 75 [facility] 7t [place] [address] Care Team Providers Care Performance Makeup Artist Name Role Phone Melinda Krishnan MD Primary Care Provide r Rosmery Quiles PharmD Unavailable [phone] Encounter Details Date Type Department Care Team ([facility] Contact Info) Description 01/29/2023 Orders Only [facility] [address] [place] [address] [phone] Silvia Fuentes LPN Social History Tobacco Use [...] Upcoming Encounters Date Type Department Care Team ([facility] Contact Info) Description 05/08/2025 1:45 PM EDT Telemedicine [facility] [address] [place] [address] [phone] Melinda Krishnan MD 230 [place] [address] 05/22/2025 12:45 PM EDT Office Visit [facility] ADULT DENTAL [address] [place] [address] Selma Green [address] [place] [address] 05/22/2025 1:30 PM EDT Medication Management [facility] MED[facility]INE [address] [place] [address] Rosmery Quiles PharmD [address] [place] [address] documented as of this encounter Visit Diagnoses Not on filedocumented in this encounter Additional Health Concerns Assessment Noted Time PHQ-9 Depression Total Score: 0 11/13/19 23 2:46 PM EDT documented as of this encounter Care Teams Performance Makeup Artist Relationship Specialty Start Date End Date Melinda Krishnan MD [address] [place] [phone] PCP - General Family Medicine 09/06/20 Rosmery Quiles PharmD [address] [place] [address] Pharmacist Internal Medicine 02/01/24 documented as of this encounter
--- OUTSIDE RECORDS SUMMARY | 2025-04-26 09:47 | XMS_ITS | Encounter Summary ---
Author Organization [employer] Address 75 [facility] 7t [place] [address] Care Team Providers Care Oracle Analyst Name Role Phone Melinda Krishnan MD Primary Care Provide r Rosmery Quiles PharmD Unavailable Reason for Visit * Reason Onset Date Comments Appointment Request 07/11/2024 Encounter Details Date Type Department Care Team ([facility] st Contact Info) Description 07/11/[address] [facility] MEDICINE [address] [place], [place] [phone] Melinda Krishnan MD [address] [place] [address] Appointment Request Social History Tobacco Use Types [...] the past 12 months, has t he [employer], gas, oil or water [employer] threatened to shut off services in your [...] 07/11. Contact pt daughter to r/s at [phone] documented in this encounter Plan of Treatment Upcoming Encounters Date Type Department Care Team (Late st Contact Info) Description 05/08/2025 1:45 PM EDT Telemedicine [facility] MEDICINE [address] [place] [address] Melinda Krishnan MD [address] [place] [address] 05/22/2025 12:45 PM EDT Office Visit [facility] ADULT DENTAL [address] [place] [address] Selma Green [address] [place] [address] 05/22/2025 1:30 PM EDT Medication Management [facility] MEDICINE [address] [place] [address] Rosmery Quiles PharmD [address] [place] [address] documented as of this encounter Goals Goal [...] documented as of this encounter Care Teams Oracle Analyst Relationship Specialty Start Date End Date Melinda Krishnan MD [address] [place] [address] PCP - General Family Medicine 09/06/20 Rosmery Quiles, PharmD [address] [place] [address] Pharmacist Internal Medicine 02/01/24 documented as of this encounter
--- OUTSIDE RECORDS SUMMARY | 2025-04-26 09:47 | XMS_ITS | Encounter Summary ---
Author Organization [employer] Address 75 [facility] 7t [place] [address] Care Team Providers Care Professional Development Manager Name Role Phone Melinda Krishnan MD Primary Care Provide r Rosmery Quiles PharmD Unavailable [phone]- [phone] Reason for Visit * Reason Onset Date Comments Med Refill 06/11/2023 Encounter Details Date Type Department Care Team ([facility] st Contact Info) Description 06/11/2023 Telephone [facility] MEDICINE [address] [place], [place] [phone] Melinda Krishnan MD 230 [place], [place] [phone] Med Refill Social History Tobacco Use Types [...] 50 MG tablet to be sent to [facility] pharmacy documented in this encounter Plan of Treatment Upcoming Encounters Date Type Department Care Team (Late st Contact Info) Description 05/08/2025 1:45 PM EDT Telemedicine [facility] MED[facility]INE [address] [place] [address] Melinda Krishnan MD [address] [place] [address] 05/22/2025 12:45 PM EDT Office Visit [facility] ADULT DENTAL [address] [place] [address] Selma Green [address] [place] [address] 05/22/2025 1:30 PM EDT Medication Management [facility] [address] [place] [address] Rosmery Quiles PharmD 230 [place] [address] documented as of this encounter Visit Diagnoses Not on filedocumented in this encounter Additional Health Concerns Assessment Noted Time PHQ-9 Depression Total Score: 0 11/13/19 23 2:46 PM EDT documented as of this encounter Care Teams Professional Development Manager Relationship Specialty Start Date End Date Melinda Krishnan MD [address] [place] [address] PCP - General Family Medicine 09/06/20 Rosmery Quiles, HopeD [address] [place] [phone] Pharmacist Internal Medicine 02/01/24 documented as of this encounter
--- OUTSIDE RECORDS SUMMARY | 2025-04-26 09:47 | XMS_ITS | Encounter Summary ---
Author Organization [employer] Address 75 [facility] 7t [place] [address] Care Team Providers Care Job Placement Officer Name Role Phone Melinda Krishnan MD Primary Care Provide r Rosmery Quiles PharmD Unavailable Reason for Visit * Reason Onset Date Comments Appointment Request 02/15/2025 Encounter Details Date Type Department Care Team ([facility] st Contact Info) Description 02/15/2025 Telephone [facility] [address] [place], [place] [phone] Melinda Krishnan MD 230 [place] [address] Appointment Request Social History Tobacco Use Types [...] the past 12 months, has t he [employer], gas, oil or water company threatened to [...] on the . Any questions contact at [phone] documented in this encounter Plan of Treatment Upcoming Encounters Date Type Department Care Team (Late st Contact Info) Description 05/08/2025 1:45 PM EDT Telemedicine [facility] [address] [place] [address] Melinda Krishnan MD [address] [place] [address] 05/22/2025 12:45 PM EDT Office Visit [facility] ADULT DENTAL [address] [place] [address] Selma Green [address] [place] [address] 05/22/2025 1:30 PM EDT Medication Management [facility] [address] [place] [address] Rosmery Quiles PharmD 230 [place] [address] documented as of this encounter Goals Goal [...] documented as of this encounter Care Teams Job Placement Officer Relationship Specialty Start Date End Date Melinda Krishnan MD [address] [place] [address] PCP - General Family Medicine 09/06/20 Rosmery Quiles PharmD [address] [place] [phone] Pharmacist Internal Medicine 02/01/24 documented as of this encounter
--- OUTSIDE RECORDS SUMMARY | 2025-04-26 09:47 | XMS_ITS | Encounter Summary ---
Author Organization [employer] Address 75 [facility] 7t [place] [address] Care Team Providers Care Center Machine Set Up Operator Name Role Phone Melinda Krishnan MD Primary Care Provide r Rosmery Quiles PharmD Unavailable [phone]- [phone] Reason for Visit * Reason Onset Date Comments Med Refill 09/28/2024 Encounter Details Date Type Department Care Team ([facility] st Contact Info) Description 09/28/2024 Telephone [facility] MEDICINE [address] [place] [address] Meilnda Krishnan MD [address] [place] [address] Med Refill Social History Tobacco Use Types [...] the past 12 months, has t he [employer], gas, oil or water [employer] threatened to shut off services in your [...] 2.5 % cream To be sent to: [facility] documented in this encounter Plan of Treatment Upcoming Encounters Date Type Department Care Team (Late st Contact Info) Description 05/08/2025 1:45 PM EDT Telemedicine [facility] MEDICINE [address] [place] [address] Melinda Krishnan MD [address] [place] [address] 05/22/2025 12:45 PM EDT Office Visit [facility] ADULT DENTAL [address] [place], [place] [phone] Rupert Greenaris [address] [place] [address] 05/22/2025 1:30 PM EDT Medication Management [facility] MEDICINE [address] [place] [address] Rosmery Quiles, Raisa [address] [place] [address] documented as of this encounter Goals Goal [...] documented as of this encounter Care Teams Center Machine Set Up Operator Relationship Specialty Start Date End Date Melinda Krishnan MD [address] [place] [address] [phone] PCP - General Family Medicine 09/06/20 Rosmery Quiles, Raisa [address] [place] [address] [phone] Pharmacist Internal Medicine 02/01/24 documented as of this encounter
--- OUTSIDE RECORDS SUMMARY | 2025-04-26 09:47 | XMS_ITS | Encounter Summary ---
Author Organization [employer] Address [address] [facility] [address] 7t [place] [address] Care Team Providers Care Animal Nutrition Consultant Name Role Phone Melinda Krishnan MD Primary Care Provide r Rosmery Quiles PharmD Unavailable [phone]- [phone] Reason for Visit * Reason Comments Med Refill Encounter Details Date Type Department Care Team (Late st Contact Info) Description 04/24/2025 Refill [facility] CHC MED & PEDS [address] [place], [place] [phone] Melinda Krishnan MD 230 [place] [address] Lumbar spondylosis Social History Tobacco Use Types Packs/Day Years [...] the past 12 months, has t he [employer], gas, oil or water [employer] threatened to shut off services in your [...] Info) Description 05/08/2025 1:45 PM EDT Telemedicine [facility] MEDICINE [address] [place] [phone] Melinda Krishnan MD [address] [place] [address] 05/22/2025 12:45 PM EDT Office Visit [facility] ADULT DENTAL [address] [place] [address] Norma Selma [address] [place] [address] 05/22/2025 1:30 PM EDT Medication Management [facility] MEDICINE [address] [place] [address] Rosmery Quiles PharmD [address] [place] [address] documented as of this encounter Goals Goal Patient Goal Type Associated Problems Recent Progress Patient-Stated? Author Hemoglobin A1c < 8 Result Component 6.9( 5 1:45 PM EDT) No Danielle Sharma Record your blood sugar as directed Result Component No Danielle Sharma documented as of this encounter Visit Diagnoses Diagnosis Lumbar spondylosis Lumbosacral spondylosis without myelopathy documented in this encounter Additional Health Concerns Assessment Noted Time PHQ-9 Depression Total Score: 8 01/10/20 25 1:43 PM EDT documented as of this encounter Care Teams Animal Nutrition Consultant Relationship Specialty Start Date End Date Melinda Krishnan MD [address] [place] [address] PCP - General Family Medicine 09/06/20 Rosmery Quiles, HopeD [address] [place] [address] Pharmacist Internal Medicine 02/01/24 documented as of this encounter
--- OUTSIDE RECORDS SUMMARY | 2025-04-26 09:47 | XMS_ITS | Encounter Summary ---
Author Organization [employer] Address 75 [facility] 7t [place] [address] Care Team Providers Care Retail Shift Supervisor Name Role Phone Melinda Krishnan MD Primary Care Provide r Rosmery Quiles PharmD Unavailable [phone]- [phone] Reason for Visit * Reason Onset Date Comments Med Refill 08/17/2024 Encounter Details Date Type Department Care Team ([facility] st Contact Info) Description 08/17/2024 Telephone [facility] MEDICINE [address] [place] [address] Melinda Krishnan MD [address] [place] [address] Med Refill Social History Tobacco Use Types [...] the past 12 months, has t he [employer], gas, oil or water [employer] threatened to shut off services in your [...] 10:04 AM EST Medication was sent to [facility] on 08/14/24. * Telephone Encounter - Alden Degroot - 08/17/2024 9:52 AM EST TC from pt requesting medication refill. Medications needing refill : glipiZIDE (Glucotrol) 5 MG tablet To be sent to: [facility] pharmacy documented in this encounter Plan of Treatment Upcoming Encounters Date Type Department Care Team (Late st Contact Info) Description 05/08/2025 1:45 PM EDT Telemedicine [facility] MEDICINE [address] [place] [address] Melinda Krishnan MD [address] [place] [address] 05/22/2025 12:45 PM EDT Office Visit [facility] ADULT DENTAL [address] [place] [address] Rupert Greenaris [address] [place] [address] 05/22/2025 1:30 PM EDT Medication Management [facility] MEDICINE [address] [place] [address] Rosmery Quiles PharmD [address] [place] [address] documented as of this encounter Goals Goal [...] documented as of this encounter Care Teams Retail Shift Supervisor Relationship Specialty Start Date End Date Melinda Krishnan MD [address] [place] [address] PCP - General Family Medicine 09/06/20 Rosmery Quiles PharmD [address] [place] [address] Pharmacist Internal Medicine 02/01/24 documented as of this encounter
--- OUTSIDE RECORDS SUMMARY | 2025-04-26 09:47 | XMS_ITS | Encounter Summary ---
Author Organization [employer] Address [address] [facility] [address] 7t [place] [address] Care Team Providers Care Woodwind Instrument Repairer Name Role Phone Melinda Krishnan MD Primary Care Provide r Rosmery Quiles PharmD Unavailable [phone] Encounter Details Date Type Department Care Team (Late Contact Info) Description 03/03/2023 Orders Only [facility] [address] [place], [place] [phone] Jimena West LPN Social History Tobacco Use [...] Upcoming Encounters Date Type Department Care Team ([facility] Contact Info) Description 05/08/2025 1:45 PM EDT Telemedicine [facility] [address] [place] [address] Melinda Krishnan MD [address] [place] [address] 05/22/2025 12:45 PM EDT Office Visit [facility] ADULT [facility] [address] [place] [address] Semla Green 230 [place] [address] 05/22/2025 1:30 PM EDT Medication Management [facility] [address] [place] [address] Rosmery Quiles PharmD 230 [place] [address] documented as of this encounter Visit Diagnoses Not on filedocumented in this encounter Additional Health Concerns Assessment Noted Time PHQ-9 Depression Total Score: 0 11/13/19 23 2:46 PM EDT documented as of this encounter Care Teams Woodwind Instrument Repairer Relationship Specialty Start Date End Date Melinda Krishnan MD [address] [place] [address] PCP - General Family Medicine 09/06/20 Rosmery Quiles PharmD [address] [place] [address] [phone] Pharmacist Internal Medicine 02/01/24 documented as of this encounter
--- OUTSIDE RECORDS SUMMARY | 2025-04-26 09:47 | XMS_ITS | Encounter Summary ---
Author Organization [employer] Address 75 [facility] 7t [place] [address] Care Team Providers Care Child And Family Services Specialist Name Role Phone Melinda Krishnan MD Primary Care Provide r Rosmery Quiles PharmD Unavailable [phone]- [phone] Reason for Visit * Reason Onset Date Comments Med Refill 07/18/2024 Encounter Details Date Type Department Care Team ([facility] st Contact Info) Description 07/18/2024 Telephone [facility] MEDICINE [address] [place] [address] Melinda Krishnan MD 230 [place] [address] Med Refill Social History Tobacco Use Types [...] the past 12 months, has t he [employer], gas, oil or water company threatened to [...] MG/0.5ML solution auto-injector To be sent to: [facility] - [place], [place] - [address] [place] [address] documented in this encounter Plan of Treatment Upcoming Encounters Date Type Department Care Team (Late st Contact Info) Description 05/08/2025 1:45 PM EDT Telemedicine [facility] MEDICINE [address] [place], [place] [phone] Melinda Krishnan MD [address] [place] [address] 05/22/2025 12:45 PM EDT Office Visit [facility] ADULT DENTAL [address] [place] [address] Selma Green 230 [place] [address] 05/22/2025 1:30 PM EDT Medication Management [facility] MEDICINE [address] [place] [address] Rosmery Quiles PharmD [address] [place] [address] documented as of this encounter Goals Goal [...] documented as of this encounter Care Teams Child And Family Services Specialist Relationship Specialty Start Date End Date Melinda Krishnan MD [address] [place] [address] PCP - General Family Medicine 09/06/20 Rosmery Quiles, Raisa [address] [place] [phone] Pharmacist Internal Medicine 02/01/24 documented as of this encounter
--- OUTSIDE RECORDS SUMMARY | 2025-04-26 09:47 | XMS_ITS | Clinical Summary ---
Author Organization [facility] Address [address] [place] [address] Phone Care Team Providers Care Cytogenetic Technologist Name Role Phone Melinda Krishnan MD Primary [...] 06/13/2017 Diabetes mellitus type 2, un complicated ([facility] V24, [facility] V28) 06/13/2017 Depression 06/13/2017 Asthma 05/25/2017 Multiple pulmonary nodules 05/25/2017 Medical History Medical History Date Comments Hyperlipidemia 06/13/2017 DX:Hyperlipidemi a Depression 06/13/2017 DX:Depression Hypertension 06/13/2017 DX:Hypertension Diabetes mellitus type 2, uncomplicated ([facility] V24, [facility] V28) 06/13/2017 DX:Diabetes mellitus type 2, uncomplicated ([facility]) Asthma 05/25/2017 DX:Asthma History of tobacco use [...] 09/14/2024 1:42 PM EST Plan of Treatment Health Maintenance Due Date Last Done Comments Diabetes: Annual Foot Exam [birth year]/02/1950 Diabetes: Annual Retina Eye Exam 12/02/1950 Falls Risk Assessment 06/29/2022 Medicare Annual Wellness Visit 06/29/2022 Osteoporosis Screening (Bone Density Screening) 06/29/2022 Social Influencers of Health Screening 06/29/2022 Diabetes: Annual Urine Albumin-Creatinine Ratio (uACR) 07/11/2022 Depression Screening 07/27/2024 Diabetes: Blood Sugar Control Test (HGBA1C) 02/26/2025 08/29/2024, 06/03/2024, 03/16/2024 COVID-19 Vaccine ( season) 2025 12/16/2023, 12/10/2021, 08/22/2021, Additional history exists Influenza Vaccine (#1) 2025 [...] to complete this topic Insurance MEDICAID - [facility] MEDICAID [facility] MEDICARE Member Subscriber Plan / Payer (Ef fective 2011-Present) Name:Ana Rob Relation to Subscriber:Self Name:Ana Rob Payer ID:[id number] Group ID:[id number] Type:Not on file Address: [address] [place] [address] Care Teams Cytogenetic Technologist Relationship Specialty Start Date End Date Melinda Krishnan MD [address] [phone] PCP - General Internal Medicine 04/27/24
--- OUTSIDE RECORDS SUMMARY | 2025-04-26 09:47 | XMS_ITS | Encounter Summary ---
Author Organization [employer] Address 75 [facility] 7t [place] [address] Care Team Providers Care Exhauster Name Role Phone Melinda Krishnan MD Primary Care Provide r Rosmery Quiles PharmD Unavailable [phone] Reason for Visit * Reason Onset Date Comments Durable Medical Equipment 12/25/2023 Encounter Details Date Type Department Care Team ([facility] st Contact Info) Description 12/25/2023 Telephone [facility] MEDICINE [address] [place], [place] [phone] Melinda Krishnan MD 230 [place] [address] Durable Medical Equipment Social History Tobacco Use [...] to reflect need. Thank you Tc from [facility] is requesting an rx for a rollator with seat to be faxed to [phone]. * Telephone Encounter - Sheryl Nolasco - 12/25/2023 2:48 PM EDT Tc from [facility] is requesting an rx for a rollator with seat to be faxed to [phone]. documented in this encounter Plan of Treatment Upcoming Encounters Date Type Department Care Team (Late st Contact Info) Description 05/08/2025 1:45 PM EDT Telemedicine [facility] MEDICINE [address] [place] [address] Melinda Krishnan MD [address] [place] [address] 05/22/2025 12:45 PM EDT Office Visit [facility] ADULT DENTAL [address] [place] [address] Selma Green [address] [place] [address] 05/22/2025 1:30 PM EDT Medication Management [facility] MEDICINE [address] [place] [address] Rosmery Quiles, Raisa [address] [place] [address] documented as of this encounter Visit Diagnoses Not on filedocumented in this encounter Additional Health Concerns Assessment Noted Time PHQ-9 Depression Total Score: 0 11/13/19 23 2:46 PM EDT documented as of this encounter Care Teams Exhauster Relationship Specialty Start Date End Date Melinda Krishnan MD [address] [place] [address] [phone] PCP - General Family Medicine 09/06/20 Rosmery Quiles, Raisa [address] [place] [address] Pharmacist Internal Medicine 02/01/24 documented as of this encounter
--- OUTSIDE RECORDS SUMMARY | 2025-04-26 09:47 | XMS_ITS | Encounter Summary ---
Author Organization [employer] Address 75 [facility] 7t [place] [address] Care Team Providers Care Supervisor Wet Room Name Role Phone Melinda Krishnan MD Primary Care Provide r Rosmery Quiles PharmD Unavailable Reason for Visit * Reason Comments Med Refill Encounter Details Date Type Department Care Team (Late st Contact Info) Description 01/06/2023 Refill [facility] [address] [place] [address] Julissa Camara MD [address] [place] [address] Pain in left shoulder Social History Tobacco [...] Info) Description 05/08/2025 1:45 PM EDT Telemedicine [facility] MEDICINE 230 [place] [address] Melinda Krishnan MD 230 [place] [address] 05/22/2025 12:45 PM EDT Office Visit [facility] ADULT DENTAL [address] [place] [address] Rupert Greenaris [address] [place] [address] 05/22/2025 1:30 PM EDT Medication Management [facility] MEDICINE [address] [place] [address] Rosmery Quiles PharmD [address] [place] [address] documented as of this encounter Visit Diagnoses Diagnosis Pain in left shoulder documented in this encounter Additional Health Concerns Assessment Noted Time PHQ-9 Depression Total Score: 0 11/13/19 23 2:46 PM EDT documented as of this encounter Care Teams Supervisor Wet Room Relationship Specialty Start Date End Date Melinda Krishnan MD [address] [place] [address] [phone] PCP - General Family Medicine 09/06/20 Rosmery Quiles PharmD [address] [place] [address] [phone] Pharmacist Internal Medicine 02/01/24 documented as of this encounter
--- OUTSIDE RECORDS SUMMARY | 2025-04-26 09:47 | XMS_ITS | Encounter Summary ---
Author Organization [employer] Address 75 [facility] 7t [place] [address] Care Team Providers Care Stage Hand Name Role Phone Melinda Krishnan MD Primary Care Provide r Rosmery Quiles PharmD Unavailable [phone] Reason for Visit * Reason Onset Date Comments rs no show appt 05/30/2024 Encounter Details Date Type Department Care Team ([facility] st Contact Info) Description 05/30/2024 Telephone [facility] ADULT DENTAL 230 [place] [address] Hardeep Fontenot, DMD [address] [place] [address] rs no show appt Social History Tobacco [...] the past 12 months, has t he [employer], gas, oil or water company threatened to [...] Info) Description 05/08/2025 1:45 PM EDT Telemedicine [facility] MEDICINE [address] [place] [address] Melinda Krishnan MD [address] [place] [address] 05/22/2025 12:45 PM EDT Office Visit [facility] ADULT DENTAL [address] [place] [address] Selma Green [address] [place] [address] 05/22/2025 1:30 PM EDT Medication Management [facility] MEDICINE [address] [place] [address] Rosmery Quiles PharmD [address] [place] [address] documented as of this encounter Goals Goal [...] documented as of this encounter Care Teams Stage Hand Relationship Specialty Start Date End Date Melinda Krishnan MD [address] [place] [address] PCP - General Family Medicine 09/06/20 Rosmery Quiles PharmD [address] [place] [phone] Pharmacist Internal Medicine 02/01/24 documented as of this encounter
--- OUTSIDE RECORDS SUMMARY | 2025-04-26 09:47 | XMS_ITS | Encounter Summary ---
Author Organization [employer] Address 75 [facility] 7t [place] [address] Care Team Providers Care Security Systems Engineer Name Role Phone Melinda Krishnan MD Primary Care Provide r Rosmery Quiles PharmD Unavailable Encounter Details Date Type Department Care Team (Latest Contact Info) Description 07/17/2021 Abstract [facility] Dental, Provider, DDS Social History Tobacco [...] Info) Description 05/08/2025 1:45 PM EDT Telemedicine [facility] MEDICINE [address] [place] [address] Melinda Krishnan MD [address] [place] [address] 05/22/2025 12:45 PM EDT Office Visit [facility] ADULT DENTAL [address] [place] [address] Selma Green 230 [place] [address] 05/22/2025 1:30 PM EDT Medication Management [facility] [address] [place] [address] Rosmery Quiles, PharmD 230 [place] [address] documented as of this encounter Visit Diagnoses Not on filedocumented in this encounter Care Teams Security Systems Engineer Relationship Specialty Start Date End Date Melinda Krishnan MD [address] [place], [place] [phone] PCP - General Family Medicine 09/06/20 Rosmery Quiles, PharmD [address] [place], [place] [phone] Pharmacist Internal Medicine 02/01/24 documented as of this encounter
--- OUTSIDE RECORDS SUMMARY | 2025-04-26 09:47 | XMS_ITS | Encounter Summary ---
Author Organization [employer] Address 75 [facility] 7t [place] [address] Care Team Providers Care Air Bag Buffer Name Role Phone Melinda Krishnan MD Primary Care Provide r Rosmery Quiles PharmD Unavailable Reason for Visit * Reason Onset Date Comments Appointment Request 03/10/2025 Encounter Details Date Type Department Care Team ([facility] st Contact Info) Description 03/10/2025 Telephone [facility] MEDICINE 230 [place], [place] [phone] Melinda Krishnan MD 230 [place] [address] Appointment Request Social History Tobacco Use Types [...] on the same day. Contact pt at [phone] Need electronic warfare specialist documented in this encounter Plan of Treatment Upcoming Encounters Date Type Department Care Team (Late st Contact Info) Description 05/08/2025 1:45 PM EDT Telemedicine [facility] MEDICINE [address] [place] [address] Melinda Krishnan MD 230 [place] [address] 05/22/2025 12:45 PM EDT Office Visit [facility] ADULT DENTAL [address] [place] [address] NormaSelma [address] [place] [address] 05/22/2025 1:30 PM EDT Medication Management [facility] MEDICINE [address] [place] [address] Rosmery Quiles PharmD 230 [place] [address] documented as of this encounter Goals Goal [...] documented as of this encounter Care Teams Air Bag Buffer Relationship Specialty Start Date End Date Melinda Krishnan MD [address] [place] [address] PCP - General Family Medicine 09/06/20 Rosmery Quiles PharmD [address] [place] [phone] Pharmacist Internal Medicine 02/01/24 documented as of this encounter
--- OUTSIDE RECORDS SUMMARY | 2025-04-26 09:47 | XMS_ITS | Encounter Summary ---
Author Organization [employer] Address 75 [facility] 7t [place] [address] Care Team Providers Care Business Leader Name Role Phone Melinda Krishnan MD Primary Care Provide r Rosmery Quiles PharmD Unavailable Reason for Visit * Reason Comments Med Refill Encounter Details Date Type Department Care Team ([facility] Contact Info) Description 10/13/2022 Refill [facility] CHC MED & PEDS [address] [place] [address] Julissa Camara MD [address] [place] [phone] Social History Tobacco Use Types Packs/Day Years [...] Type Department Care Team ([facility] Contact Info) Description 05/08/2025 1:45 PM EDT Telemedicine [facility] MEDICINE [address] [place] [address] Melinda Krishnan MD 230 [place] [address] 05/22/2025 12:45 PM EDT Office Visit [facility] ADULT DENTAL 230 [place] [address] Selma Green [address] [place] [address] 05/22/2025 1:30 PM EDT Medication Management [facility] MEDICINE [address] [place] [address] Rosmery Quiles, PharmD [address] [place] [address] documented as of this encounter Visit Diagnoses Not on filedocumented in this encounter Care Teams Business Leader Relationship Specialty Start Date End Date Melinda Krishnan MD [address] [place] [address] [phone] PCP - General Family Medicine 09/06/20 Rosmery Quiles, PharmD [address] [place] [address] Pharmacist Internal Medicine 02/01/24 documented as of this encounter
--- OUTSIDE RECORDS SUMMARY | 2025-04-26 09:47 | XMS_ITS | Encounter Summary ---
Author Organization [employer] Address 75 [facility] 7t [place] [address] Care Team Providers Care Information Strategist Name Role Phone Melinda Krishnan MD Primary Care Provide r Rosmery Quiles PharmD Unavailable Encounter Details Date Type Department Care Team (Late st Contact Info) Description 08/15/2022 Orders Only [facility] MEDICINE [address] [place] [address] Silvia Fuentes LPN Social History Tobacco Use [...] 05/08/2025 1:45 PM EDT Telemedicine [facility] MEDICINE [address] [place] [address] Melinda Krishnan MD [address] [place] [address] [phone] 05/22/2025 12:45 PM EDT Office Visit [facility] ADULT DENTAL [address] [place] [address] Selma Green 230 [place] [address] 05/22/2025 1:30 PM EDT Medication Management [facility] MEDICINE 230 [place] [address] Rosmery Quiles, HopeD 230 [place] [address] documented as of this encounter Visit Diagnoses Not on filedocumented in this encounter Care Teams Information Strategist Relationship Specialty Start Date End Date Melinda Krishnan MD [address] [place] [address] [phone] PCP - General Family Medicine 09/06/20 Rosmery Quiles PharmD 230 [place], [place] [phone] Pharmacist Internal Medicine 02/01/24 documented as of this encounter
--- OUTSIDE RECORDS SUMMARY | 2025-04-26 09:47 | XMS_ITS | Encounter Summary ---
Author Organization [employer] Address 75 [facility] 7t [place] [address] Care Team Providers Care Computer Field Technician Name Role Phone Meilnda Krishnan MD Primary Care Provide r Rosmery Quiles PharmD Unavailable [phone] Reason for Visit * Reason Onset Date Comments Paperwork/Forms 10/15/2022 Encounter Details Date Type Department Care Team (Late st Contact Info) Description 10/15/2022 Telephone [facility] MEDICINE 230 [place] [address] Melinda Krishnan MD 230 [place] [address] Paperwork/Forms Social History Tobacco Use Types Packs/Day [...] Info) Description 05/08/2025 1:45 PM EDT Telemedicine [facility] MEDICINE [address] [place] [address] Melinda Krishnan MD 230 [place] [address] 05/22/2025 12:45 PM EDT Office Visit [facility] ADULT DENTAL 230 [place] [address] Selma Green [address] [place] [address] 05/22/2025 1:30 PM EDT Medication Management [facility] MEDICINE [address] [place] [address] Rosmery Quiles PharmD [address] [place] [address] documented as of this encounter Visit Diagnoses Not on filedocumented in this encounter Care Teams Computer Field Technician Relationship Specialty Start Date End Date Melinda Krishnan MD [address] [place] [phone] PCP - General Family Medicine 09/06/20 Rosmery Quiles, PharmD [address] [place] [address] Pharmacist Internal Medicine 02/01/24 documented as of this encounter
--- OUTSIDE RECORDS SUMMARY | 2025-04-26 09:47 | XMS_ITS | Encounter Summary ---
Author Organization [employer] Address [address] [facility] 7t [place] [address] Care Team Providers Care Sweet Pickled Fruit Maker Name Role Phone Melinda Krishnan MD Primary Care Provide r Rosmery Quiles PharmD Unavailable Reason for Visit * Reason Onset Date Comments Appointment 10/17/2022 Encounter Details Date Type Department Care Team (Late st Contact Info) Description 10/17/2022 Telephone [facility] ADULT DENTAL 230 [place] [address] Arnaldo To DMD Appointment Social History Tobacco [...] 05/08/2025 1:45 PM EDT Telemedicine [facility] MEDICINE [address] [place] [address] Melinda Krishnan MD 230 [place] [address] 05/22/2025 12:45 PM EDT Office Visit [facility] ADULT DENTAL [address] [place] [address] Norma, Selma [address] [place] [address] 05/22/2025 1:30 PM EDT Medication Management [facility] MEDICINE [address] [place] [address] Rosmery Quiles PharmD [address] [place] [address] documented as of this encounter Visit Diagnoses Not on filedocumented in this encounter Care Teams Sweet Pickled Fruit Maker Relationship Specialty Start Date End Date Melinda Krishnan MD [address] [place] [address] PCP - General Family Medicine 09/06/20 Rosmery Quiles PharmD [address] [place] [address] Pharmacist Internal Medicine 02/01/24 documented as of this encounter
--- OUTSIDE RECORDS SUMMARY | 2025-04-26 09:47 | XMS_ITS | Encounter Summary ---
Author Organization [facility] [employer] Address [address] [facility] [address] 7t [place] [address] Care Team Providers Care Hose Handler Name Role Phone Melinda Krishnan MD Primary Care Provide r Rosmery Quiles PharmD Unavailable [phone] Reason for Visit * Reason Onset Date Comments Appointment 11/05/2022 Encounter Details Date Type Department Care Team (Late st Contact Info) Description 11/05/2022 Telephone [facility] ADULT DENTAL [address] [place] [address] Arnaldo To DMD Appointment Social History Tobacco [...] Info) Description 05/08/2025 1:45 PM EDT Telemedicine [facility] MEDICINE [address] [place] [address] Melinda Krishnan MD 230 [place] [address] 05/22/2025 12:45 PM EDT Office Visit [facility] ADULT DENTAL [address] [place] [address] Norma, Selma [address] [place] [address] 05/22/2025 1:30 PM EDT Medication Management [facility] MEDICINE [address] [place] [address] Rosmery Quiles PharmD 230 [place] [address] documented as of this encounter Visit Diagnoses Not on filedocumented in this encounter Care Teams Hose Handler Relationship Specialty Start Date End Date Melinda Krishnan MD [address] [place] [address] PCP - General Family Medicine 09/06/20 Rosmery Quiles PharmD [address] [place] [address] Pharmacist Internal Medicine 02/01/24 documented as of this encounter
--- OUTSIDE RECORDS SUMMARY | 2025-04-26 09:48 | XMS_ITS | Clinical Summary ---
Author Organization [employer] Address [address] [facility] 7t [place] [address] Care Team Providers Care Transportation Project Manager Name Role Phone Melinda Krishnan MD Primary Care Provide r Rosmery Quiles PharmD Unavailable Allergies Active Allergy Reactions Criticality Noted Date Comments Codeine Nausea And Vomiting 07/24/2010 Other reaction(s): vomiting Insulin Lispro Nausea And Vomiting 10/31/2013 Other reaction(s): Nausea Oxycodone Nausea And Vomiting 07/24/2010 Other reaction(s): vomiting Medications fluticasone (Flonase) 50 MCG/ACT nasal sprayIndications :Seasonal allergic rhinitis, unspecified trigger [place] 2 spray into both nostrils once a [...] obstructive pulmonary disease, unspecified COPD type (CMS/HCC) ([facility]) INHALE 2 PUFFS BY MOUTH EVERY 4 HOURS NEEDED SHORTNESS OF BREATH 18 g 1 024 Active budesonide-formo terol (Symbicort) 160-4.5 MCG/ACT inhalerIndicatio ns:Chronic obstructive pulmonary disease, unspecified COPD type (CMS/HCC) ([facility]) INHALE 2 PUFFS BY MOUTH EVERY MORNING FOR ASTHMA. RINSE MOUTH AFTER USING. 6 g Active docusate sodium (Colace) 100 MG capsule TAKE 2 CAPSULES BY MOUTH EVERY DAY AT BEDTIME Active glucagon (Baqsimi) 3 MG/DOSE nasal powderIndication s:Type 2 diabetes mellitus with hyperglycemia, with long-term current use of insulin ([facility]) Use as directed for severe hypoglycemia. [...] miscIndications: Type 2 diabetes mellitus with hyperglycemia ([facility]),half-way (current) use of insulin ([facility]) ([facility]) TEST BLOOD SUGAR THREE TIMES DAILY DIRECTED 100 each 025 Active pen needle 31G x 5 mm miscIndications: Type 2 diabetes mellitus with hyperglycemia, without long-term current use of insulin ([facility]) Use to administer insulin once daily [...] TWICE A WEEK 120 mL Active fluocinolone (Mosquero-Smoothe) 0.01 % external oilIndications:S eborrheic dermatitis Apply topically 3 times daily. 118.28 mL 025 2025 Active Alcohol Swabs (Alcohol Prep) 70 % padsIndications: Type 2 diabetes mellitus with other specified complication, unspecified whether penitentiary insulin use (HCC) USE DIRECTED 2 TO 4 TIMES DAILY 100 each Active clopidogrel (Plavix) 75 MG tablet TAKE 1 TABLET BY MOUTH EVERY MORNING (for the heart) 90 tablet 3 Active Continuous Glucose Centrifuge Operator (FreeStyle Cristino 3 Walnut) deviceIndication s:Type 2 diabetes mellitus with hyperglycemia, with long-term current use of insulin (HCC) 1 each Once per day. Use as directed for CGM 1 each Active Continuous Glucose Sensor (FreeStyle Cristino 3 Plus Sensor) miscIndications: Type 2 diabetes mellitus with hyperglycemia, with long-term current use of insulin (HCC) 1 each every 15 days. Apply 1 every 15 days as directed for CGM 2 each Active glucose blood (FreeStyle Precision Alonso Test) test stripIndications :Type 2 diabetes mellitus with hyperglycemia, with long-term current use of insulin ([facility]) Use to test blood sugar 3 [...] EVENING (BLOOD PRESSURE) 180 tablet 1 Active triamcinolone (Kenalog) 0.1 % creamIndications :Rash [...] hyperglycemia, without long-term current use of insulin ([facility]) INJECT ONE PEN (= 4.5MG) SUBCUTANEOUSLY ONCE A WEEK DIRECTED 2 mL 3 025 Active oxybutynin XL (Ditropan-XL) 5 MG 24 hr tablet TAKE 1 TABLET BY MOUTH EVERY EVENING 90 tablet 3 025 Active glipiZIDE (Glucotrol) 5 MG tabletIndication s:Type 2 diabetes mellitus with hyperglycemia, without long-term current use of insulin ([facility]) TAKE 1 TABLET BY MOUTH ONCE DAILY BEFORE LARGE MEAL. DO NOT TAKE IF no FOOD 90 tablet 025 Active glucose (Glutose) 40 % gel oral gelIndications:T ype 2 diabetes mellitus with hyperglycemia, without long-term current use of insulin ([facility]) Take 15 g by mouth if needed for low blood sugar. 45 g 3 025 Active insulin glargine (Lantus SoloStar) 100 UNIT/ML penIndications:T ype 2 diabetes mellitus with hyperglycemia, without long-term current use of insulin ([facility]) Inject subcutaneously 12 units once daily 15 mL 025 Active traMADol (Ultram) 50 MG tabletIndication s:Lumbar spondylosis TAKE 1 TABLET BY MOUTH EVERY 8 HOURS NEEDED FOR SEVERE PAIN FOR UP TO 5 DAYS 15 tablet 025 Active glucose (Glutose) 40 % gel oral gelIndications:T ype 2 diabetes mellitus with hyperglycemia, without long-term current use of insulin ([facility]) Take 15 g by mouth if needed for low blood sugar. 45 g 11 024 2024 Discontinued(R eorder (will not trigger notification to Pharmacy)) glipiZIDE (Glucotrol) 5 MG tabletIndication s:Type 2 diabetes mellitus with hyperglycemia, without long-term current use of insulin (HCC) TAKE 1 TABLET BY MOUTH ONCE DAILY BEFORE LARGE MEAL. DO NOT TAKE IF YOU SKIP MEAL. 90 tablet 025 2024 Discontinued traMADol (Ultram) 50 MG tabletIndication s:Lumbar spondylosis Take 1 tablet (50 mg) by mouth every 8 (eight) hours if needed for severe pain for up to 5 days. 15 tablet 025 2024 Discontinued Active Problems Problem [...] this I will also [facility] of [facility] condition - Diabetic [...] CMG, she has being refer before to industrial electrician journeyman and consumer educator without positive outcomes) - Assessment & Plan [...] -I increase her ozempic to 2mg weekly -Straw Hat Machine Operator referral today after possible referral to endocrinology [...] to her she needs to be under DEHYDROGENATION CONVERTER HELPER and rules applies for everyone and I [...] Encounters Date Type Department Care Team Description 04/24/2025 Refill [facility] [address] [place] [address] Melinda Krishnan MD Lumbar spondylosis 04/19/2025 Orders Only GENERIC EXTERNAL DATA DEPARTMENT Provider, Generic External Data 04/11/2025 Telephone [facility] [address] [place] [phone] Melinda Krishnan MD r/s from 04/17/25 provider out 04/10/2025 Orders Only [facility] [address] [place] [phone] Melinda Krishnan MD Type 2 diabetes mellitus with hyperglycemia, without long-term current use of insulin (CMS/HCC) (Primary Dx); Essential hypertension 04/10/2025 Telephone [facility] [address] [place] [address] Rosmery Quiles, PharmD 04/10/2025 Travel 04/02/2025 Refill [facility] [address] [place] [phone] Melinda Krishnan MD Type 2 diabetes mellitus with hyperglycemia, without long-term current use of insulin (CMS/HCC) 03/22/2025 Refill [facility] [address] [place] [address] Melinda Krishnan MD 03/21/2025 Refill [facility] [address] [place] [address] Rosmery Quiles, PharmD Type 2 diabetes mellitus with hyperglycemia, without long-term current use of insulin (CMS/HCC) 03/10/2025 Telephone [facility] [address] [place] [phone] Melinda Krishnan MD Appointment Request 03/06/2025 Refill [facility] [address] [place] [address] Melinda Krishnan MD Lumbar spondylosis (Primary Dx) 03/03/2025 1:00 PM EDT Clinical Support [facility] DIABETES/NUTRITION [address] [place] [address] Type 2 diabetes mellitus with hyperglycemia, with long-term current use of insulin (CMS/HCC) (Primary Dx) 03/03/2025 Travel 02/22/2025 Telephone [facility] [address] [place] [address] Melinda Krishnan MD Referral 02/15/2025 Telephone [facility] [address] [place] [address] Rosmery Quiles, PharmD 02/15/2025 Telephone [facility] [address] [place] [address] Melinda Krishnan MD Appointment Request 02/13/2025 Telephone [facility] [address] [place] [address] Dayan Dejesus RN 02/13/2025 Telephone [facility] [address] [place] [address] Dayan Dejesus RN 02/10/2025 1:40 PM EDT Office Visit [facility] [address] [place] [address] Oneida Michaud, ZOHRA Type 2 diabetes mellitus with hyperglycemia, with long-term current use of insulin (CMS/HCC) 02/10/2025 Telephone [facility] [address] [place] [address] Melinda Krishnan MD Med Refill 02/10/2025 Refill [facility] [address] [place] [address] Melinda Krishnan MD Lumbar spondylosis 02/10/2025 Telephone [facility] [address] [place] [address] Sushma Quilessa, PharmD 02/10/2025 Telephone [facility] [address] [place] [address] Sushma Quilessa, PharmD 02/07/2025 Telephone [facility] [address] [place] [address] Sushma Quilessa, PharmD 02/03/2025 Telephone [facility] [address] [place] [address] Anjana Mendoza, [place] Tele DEHYDROGENATION CONVERTER HELPER RV today 01/30/2025 Refill [facility] [address] [place] [address] Melinda Krishnan MD from Last 3 Months Immunizations Immunization Administration [...] Info) Description 05/08/2025 1:45 PM EDT Telemedicine [facility] [address] [place] [address] Melinda Krishnan MD [address] [place] [address] 05/22/2025 12:45 PM EDT Office Visit [facility] ADULT DENTAL [address] [place] [address] Norma, [place] [address] [place] [address] 05/22/2025 1:30 PM EDT Medication Management [facility] [address] [place] [address] Rosmery Quiles PharmD [address] [place] [address] Health Maintenance Due Date Last Done Comments [...] LEVEL 3 Routine 04/19/2025 2:00 PM EDT POCT URINALYSIS DIPSTICK Routine 02/10/2025 2:22 PM EDT Type 2 diabetes mellitus with hyperglycemia, with long-term current use of insulin ([facility]) POCT GLUCOSE Routine 02/10/2025 2:22 PM EDT Type 2 diabetes mellitus with hyperglycemia, with long-term current use of insulin ([facility]) POCT GLUCOSE Routine 02/06/2025 8:28 AM EDT Type 2 diabetes mellitus with hyperglycemia, with long-term current use of insulin ([facility]) POCT GLYCATED HEMOGLOBIN, TOTAL Routine 01/09/2025 1:45 PM EDT Type 2 diabetes mellitus with hyperglycemia, with long-term current use of insulin ([facility]) PROPHYLAXIS - ADULT Routine 11/08/2024 3 [...] Recently Relevant to Health Maintenance Results * Gross and Microscopic Level 3 (04/19/2025 2:00 PM EDT) 04/19/2025 2:00 PM EDT 04/20/2025 7:21 AM EDT [facility] - 04/22/2025 9:21 AM EDT ----- ------- Name: Ana Varghese Age/Sex: 84/F : 1940 Unit#: [id number] Attend Dr: Alton Adames MD Re04/19/25 Status: [facility] REF Location: [facility] Disch: ----- ------- SPEC : [id number] RECD: 04/20/25 STATUS: SANDRA SALGADO NUM: [id number] SHEELA: 04/19/25-[address]: Altno Adames MD ENTERED: 04/20/25 SP TYPE: Surgical [...] traversed by bands of pink-patricio fibrous tissue. Wet Process Head Miller sections are submitted for microscopic examination in cassettes A1 and A2, 2 pieces each. ([facility]) IHC S/NG Disclaimer NOTE: Unless otherwise stated, all tissue is formalin-fixed and paraffin-embedded. Some or all of the immunohistochemical tests reported herein may have been developed and their performance characteristics determined by [facility]. They have not been cleared or approved by the U.S. Food and Drug Administration (FDA). However, the FDA has determined that such clearance or approval is not necessary. This laboratory is certified under the Clinical Laboratory Improvement Amendments of 1988 (CLIA) as qualified to perform high complexity clinical laboratory testing. Copies To: Melinda Krishnan MD [address] [phone] CONTINUED ON NEXT PAGE ----- ------- Name: Ana Varghese Age/Sex: 84/F : 1940 Unit#: [id number] Attend Dr: Alton Adames MD Re04/19/25 Status: DEP REF Location: [facility] Disch: ----- ------- SPEC : [id number] RECD: 04/20/25 STATUS: SANDRA SALGADO NUM: [id number] SHEELA: 04/19/25-[address]: Alton Adames MD ENTERED: 04/20/25 SP TYPE: Surgical OTHR DR: Melinda Krishnan MD ORDERED: Gross Micro L3 Copies To: (Continued) Alton Adames MD [facility] [address] [place], [place] [phone] ----- ------- Signed (signature on file) Janae Quiroga MD 04/22/25 0921 ----- ------- END OF REPORT us Generic External Data Provider LAB CYTOLOGY MIKAYLA COREAS Final Result [facility] [address] [place] [address] [phone] * (ABNORMAL) POCT glucose manually resulted (02/10/2025 2:22 PM EDT) Only the most recent of2 resultswithin the time period is included. Glucose Blood, POC 229(A) 60 - 200 mg/dL Blood Capillary blood specimen / Unknown 02/10/2025 2:22 PM EDT Oneida Michaud NP [...] 11:15 AM EST) Creatinine, Urine 116.10 mg/dL [facility] Microalbumin Urine 32.0 mg/L [facility] Microalbum Creatinine Ratio Ur 27.5 <30 ug/mg cr [facility] Comment:Albumin/Creatinine R atio Reference Ranges: Normal: < 30 ug/mg creatinine Microalbuminuria: 30 - 300 ug/mg creatinineClinical Albuminuria: > 300 ug/mg creatinine 06/28/2024 11:1 5 AM EST 06/28/2024 1:06 PM EST Melinda Reza MD LAB URINE ORDERABLES Final Result [facility] [address] [place] [address] [phone] * (ABNORMAL) Lipid Panel, Standard (02/23/2024 9:23 AM EDT) Triglycerides 67 <150 mg/dL [facility] Comment:Desirable Triglyceri de: less than 150 mg/dLBorderline High Triglyceride 150-199 mg/dLHigh Triglyceride: 200-499 mg/dLVery High Triglyceride: greater than or equal to 5OO mg/dL Cholesterol 180 <200 mg/dL [facility] Comment:Desirable Cholestero l: less than 200 mg/dLBorderline High Cholesterol: 200-239 mg/dLHigh Cholesterol: greater than 239 mg/dL LDL Cholesterol Calculated 108(H) <100 mg/dL [facility] Comment:Desirable LDL: less than 100 mg/dLNear Optimal/Above Optimal LDL: 110- 129 mg/dLBorderline High LDL: 130-159 mg/dLHigh LDL: 160-189 mg/dLVery High LDL: greater than or equal to 190 mg/dL HDL Cholesterol 59 >40 mg/dL [facility] Comment:Desirable HDL: great er than 40 mg/dL Note: This HDL assay may give artificially low results in patients with liver disease. 02/23/2024 9:23 AM EDT 02/23/2024 11:20 AM EDT us Melinda Reza MD LAB BLOOD ORDERABLES Final Result [facility] [address] [place] [address] [phone] * BI Mammogram Screening Tomosynthesis Bilateral (01/29/2024 1:13 PM EDT) Anatomical Region Laterality Modality Breast Bilateral Mammography 01/29/2024 1:13 PM EDT Narrative 02/16/2024 9:00 PM EDT [facility] [address] [place] [address] Mammography Report Signed Patient: Ana Varghese MR#: [id number] 94 : 1940 Acct:[id number] Age/Sex: 83 / F ADM Date: 01/29/24 Loc: HO.MAMMO Attending Dr: Melinda Reza MD Ordering Physician: Melinda Krishnan MD Results: 0Incomplete: Needs Additional Imaging Evaluation Date of Service: 01/29/24 Follow Up: Additional Imagi ng Procedure(s): MM tomosynthesis screening BI Accession Number(s): [id number] cc: Melinda Krishnan MD EXAMINATION: MM SCREENING [...] MD in OV> 02/16/242055 DD/ 1313 TD/TT: Conservation Enforcement Officer: Procedure Note Donotuseinterpreter, Image - 02/16/2024 [facility] [address] [place] [address] Mammography Report Signed Patient: Donya Varghese#: [id number] 94 : 1940Acct:[id number] Age/Sex: 83 / FADM Date: 01/29/24 Loc: HO.MAMMO Attending Dr: Melinda Reza MD Ordering Physician: Melinda Krishnan MD Results: 0Incomplete: Needs Additional Imaging Evaluation Date of Service: 01/29/24Follow Up: Additional Imagi ng Procedure(s): MM tomosynthesis screening BI Accession Number(s): [id number] cc: Melinda Krishnan MD EXAMINATION: MM SCREENING [...] MD in OV> 02/16/242055 DD/ 1313 TD/TT: Conservation Enforcement Officer: us Melinda Reza MD IMG BI PROCEDURES Fin al Result from Last 3 Months or Most Recently Relevant to Health Maintenance Insurance [facility] FDC OPTIONS (HMO D-SNP) DENTAL [facility] Care Teams Transportation Project Manager Relationship Specialty Start Date End Date Melinda Krishnan MD [address] [place], [place] [phone] PCP - General Family Medicine 09/06/20 Rosmery Quiles, PharmD [address] [place], [place] [phone] Pharmacist Internal Medicine 02/01/24
--- OUTSIDE RECORDS SUMMARY | 2025-04-26 09:48 | XMS_ITS | Encounter Summary ---
Author Organization [employer] Address [address] [facility] 7t [place] [address] Care Team Providers Care Hot Braider Name Role Phone Melinda Krishnan MD Primary Care Provide r Rosmery Quiles PharmD Unavailable [phone] Encounter Details Date Type Department Care Team (Latest Contact Info) Description 02/23/2019 Abstract [facility] CONVERSIONS Dental, Provider, DDS Social History [...] Info) Description 05/08/2025 1:45 PM EDT Telemedicine [facility] MEDICINE [address] [place] [phone] Melinda Krishnan MD [address] [place] [phone] 05/22/2025 12:45 PM EDT Office Visit [facility] ADULT DENTAL [address] [place] [address] [phone] Selma Green [address] [place] [address] 05/22/2025 1:30 PM EDT Medication Management [facility] [address] [place] [phone] Rosmery Quiles, PharmD [address] [place] [address] documented as of this encounter Visit Diagnoses Not on filedocumented in this encounter Care Teams Hot Braider Relationship Specialty Start Date End Date Melinda Krishnan MD [address] [place], [place] [phone] PCP - General Family Medicine 09/06/20 Rosmery Quiles, PharmD [address] [place] [address] Pharmacist Internal Medicine 02/01/24 documented as of this encounter
--- OUTSIDE RECORDS SUMMARY | 2025-04-26 09:48 | XMS_ITS | Encounter Summary ---
Author Organization [employer] Address [address] [facility] [address] [place] [address] Care Team Providers Care Farm Forest[employer] Garden Workers Name Role Phone Melinda Krishnan MD Primary Care Provide r Rosmery Quiles PharmD Unavailable [phone] Encounter Details Date Type Department Care Team ([facility] st Contact Info) Description 05/22/2023 Abstract [facility] MEDICINE [address] [place] [address] Melinda Krishnan MD [address] [place] [address] Social History Tobacco Use Types Packs/Day Years [...] Info) Description 05/08/2025 1:45 PM EDT Telemedicine [facility] MEDICINE [address] [place] [phone] Melinda Krishnan MD [address] [place] [address] 05/22/2025 12:45 PM EDT Office Visit [facility] ADULT DENTAL [address] [place] [address] Norma, Sel[place] [address] [place] [address] 05/22/2025 1:30 PM EDT Medication Management [facility] MEDICINE [address] [place] [address] Rosmery Quiles PharmD [address] [place] [phone] documented as of this encounter Visit Diagnoses Not on filedocumented in this encounter Additional Health Concerns Assessment Noted Time PHQ-9 Depression Total Score: 0 11/13/19 23 2:46 PM EDT documented as of this encounter Care Teams [employer] Relationship Specialty Start Date End Date Melinda Krishnan MD [address] [place] [phone] PCP - General Family Medicine 09/06/20 Rosmery Quiles PharmD [address] [place] [phone] Pharmacist Internal Medicine 02/01/24 documented as of this encounter
--- OUTSIDE RECORDS SUMMARY | 2025-04-26 09:48 | XMS_ITS | Encounter Summary ---
Author Organization [employer] Address [address] [facility] [address] [place] [address] Care Team Providers Care Miller First Name Role Phone Melinda Krishnan MD Primary Care Provide r Rosmery Quiles PharmD Unavailable [phone] Reason for Visit * Reason Comments Med Refill Encounter Details Date Type Department Care Team (Late st Contact Info) Description 06/11/2023 Refill [facility] MED[facility]INE [address] [place] [address] Melinda Krishnan MD [address] [place], [place] [phone] Pain in left shoulder Social History Tobacco [...] 05/08/2025 1:45 PM EDT Telemedicine [facility] MEDICINE [address] [place] [phone] Melinda Krishnan MD [address] [place] [phone] 05/22/2025 12:45 PM EDT Office Visit [facility] ADULT DENTAL [address] [place] [phone] Norma, Selma [address] [place] [address] 05/22/2025 1:30 PM EDT Medication Management [facility] MED[facility] [address] [place] [address] Rosmery Quiles PharmD [address] [place] [phone] documented as of this encounter Visit Diagnoses Diagnosis Pain in left shoulder documented in this encounter Additional Health Concerns Assessment Noted Time PHQ-9 Depression Total Score: 0 11/13/19 23 2:46 PM EDT documented as of this encounter Care Teams Miller First Relationship Specialty Start Date End Date Melinda Krishnan MD [address] [place] [phone] PCP - General Family Medicine 09/06/20 Rosmery Quiles PharmD [address] [place] [address] Pharmacist Internal Medicine 02/01/24 documented as of this encounter
--- OUTSIDE RECORDS SUMMARY | 2025-04-26 09:48 | XMS_ITS | Encounter Summary ---
Author Organization [employer] Address [address] 7t [place] [address] Care Team Providers Care Gift Manager Name Role Phone Melinda Krishnan MD Primary Care Provide r Rosmery Quiles PharmD Unavailable [phone] Reason for Visit * Reason Comments Med Refill Encounter Details Date Type Department Care Team (Late st Contact Info) Description 07/09/2023 Refill [facility] MEDICINE [address] [place] [address] Jimena Dutton, [address] [place], [place] [phone] Seborrheic dermatitis of scalp Social History Tobacco [...] 05/08/2025 1:45 PM EDT Telemedicine [facility] MEDICINE [address] [place] [phone] Melinda Krishnan MD [address] [place] [phone] 05/22/2025 12:45 PM EDT Office Visit [facility] ADULT DENTAL [address] [place] [phone] Norma, [place] [address] [place] [address] 05/22/2025 1:30 PM EDT Medication Management [facility] MEDICINE [address] [place] [address] Rosmery Quiles, PharmD [address] [place] [address] documented as of this encounter Visit Diagnoses Diagnosis Seborrheic dermatitis of scalp Other seborrheic dermatitis documented in this encounter Additional Health Concerns Assessment Noted Time PHQ-9 Depression Total Score: 0 11/13/19 23 2:46 PM EDT documented as of this encounter Care Teams Gift Manager Relationship Specialty Start Date End Date Melinda Krishnan MD [address] [place] [phone] PCP - General Family Medicine 09/06/20 Rosmery Quiles, PharmD [address] [place] [address] Pharmacist Internal Medicine 02/01/24 documented as of this encounter
--- OUTSIDE RECORDS SUMMARY | 2025-04-26 09:48 | XMS_ITS | Encounter Summary ---
Author Organization [employer] Address [address] [facility] 7t [place] [address] Care Team Providers Care Superintendent Sanitation Name Role Phone Melinda Krishnan MD Primary Care Provide r Rosmery Quiles PharmD Unavailable [phone] Reason for Visit * Reason Comments Med Refill Encounter Details Date Type Department Care Team (Late st Contact Info) Description 06/11/2023 Refill [facility] MEDICINE [address] [place] [address] Melinda Krishnan MD 230 [place], [place] [phone] Pain in left shoulder Social History Tobacco [...] Info) Description 05/08/2025 1:45 PM EDT Telemedicine [facility] MEDICINE [address] [place] [phone] Melinda Krishnan MD [address] [place] [phone] 05/22/2025 12:45 PM EDT Office Visit [facility] ADULT DENTAL [address] [place] [phone] Norma, [place] [address] [place] [address] 05/22/2025 1:30 PM EDT Medication Management [facility] MEDICINE [address] [place] [address] Rosmery Quiles PharmD [address] [place] [phone] documented as of this encounter Visit Diagnoses Diagnosis Pain in left shoulder documented in this encounter Additional Health Concerns Assessment Noted Time PHQ-9 Depression Total Score: 0 11/13/19 23 2:46 PM EDT documented as of this encounter Care Teams Superintendent Sanitation Relationship Specialty Start Date End Date Melidna Krishnan MD [address] [place] [phone] PCP - General Family Medicine 09/06/20 Rosmery Quiles PharmD 230 [place] [address] Pharmacist Internal Medicine 02/01/24 documented as of this encounter
--- OUTSIDE RECORDS SUMMARY | 2025-04-26 09:48 | XMS_ITS | Encounter Summary ---
Author Organization [employer] Address [address] 7[address] [place] [address] Care Team Providers Care Oyster Grower Name Role Phone Melinda Krishnan MD Primary Care Provide r Rosmery Quiles PharmD Unavailable [phone] Encounter Details Date Type Department Care Team ([facility] st Contact Info) Description 05/22/2023 Abstract [facility] MEDICINE [address] [place] [address] Melinda Krishnan MD 230 [place] [address] Social History Tobacco Use Types Packs/Day Years [...] Info) Description 05/08/2025 1:45 PM EDT Telemedicine [facility] MEDICINE [address] [place] [phone] Melinda Krishnan MD [address] [place] [phone] 05/22/2025 12:45 PM EDT Office Visit [facility] ADULT DENTAL [address] [place] [address] Norma, [place] [address] [place] [address] 05/22/2025 1:30 PM EDT Medication Management [facility] MEDICINE [address] [place] [address] Rosmery Quiles PharmD [address] [place] [phone] documented as of this encounter Visit Diagnoses Not on filedocumented in this encounter Additional Health Concerns Assessment Noted Time PHQ-9 Depression Total Score: 0 11/13/19 23 2:46 PM EDT documented as of this encounter Care Teams Oyster Grower Relationship Specialty Start Date End Date Melinda Krishnan MD [address] [place] [phone] PCP - General Family Medicine 09/06/20 Rosmery Quiles PharmD [address] [place] [phone] Pharmacist Internal Medicine 02/01/24 documented as of this encounter
--- OUTSIDE RECORDS SUMMARY | 2025-04-26 09:48 | XMS_ITS | Encounter Summary ---
Author Organization [employer] Address [address] [facility] 7t [place] [address] Care Team Providers Care Manager Infusion Name Role Phone Melinda Krishnan MD Primary Care Provide r Rosmery Quiles PharmD Unavailable [phone] Reason for Visit * Reason Comments Med Refill Encounter Details Date Type Department Care Team ([facility] st Contact Info) Description 05/11/2023 Refill [facility] MEDICINE 230 [place] [address] Melinda Krishnan MD [address] [place], [place] [phone] Social History Tobacco Use Types Packs/Day Years [...] Info) Description 05/08/2025 1:45 PM EDT Telemedicine [facility] MEDICINE [address] [place] [phone] Melinda Krishnan MD [address] [place] [phone] 05/22/2025 12:45 PM EDT Office Visit [facility] ADULT DENTAL [address] [place] [phone] Norma, [place] [address] [place] [address] 05/22/2025 1:30 PM EDT Medication Management [facility] MEDICINE [address] [place] [phone] Rosmery Quiles PharmD [address] [place] [phone] documented as of this encounter Visit Diagnoses Not on filedocumented in this encounter Additional Health Concerns Assessment Noted Time PHQ-9 Depression Total Score: 0 11/13/19 23 2:46 PM EDT documented as of this encounter Care Teams Manager Infusion Relationship Specialty Start Date End Date Melinda Krishnan MD [address] [place] [address] PCP - General Family Medicine 09/06/20 Rosmery Quiles PharmD [address] [place] [address] Pharmacist Internal Medicine 02/01/24 documented as of this encounter
--- OUTSIDE RECORDS SUMMARY | 2025-04-26 09:48 | XMS_ITS | Encounter Summary ---
Author Organization [employer] Address [address] [address] [facility] [address] [place] [address] Care Team Providers Care Volleyball Coach Name Role Phone Melinda Krishnan MD Primary Care Provide r Rosmery Quiles PharmD Unavailable Reason for Visit * Reason Onset Date Comments partial difficulty 05/22/2023 Encounter Details Date Type Department Care Team ([facility] st Contact Info) Description 05/22/2023 Telephone [facility] ADULT DENTAL [address] [place] [address] Hardeep Fontenot, DMD [address] [place] [address] partial difficulty Social History Tobacco Use Types [...] Info) Description 05/08/2025 1:45 PM EDT Telemedicine [facility] MEDICINE [address] [place] [address] Melinda Krishnan MD [address] [place] [address] 05/22/2025 12:45 PM EDT Office Visit [facility] ADULT DENTAL [address] [place] [address] Selma Green [address] [place] [address] 05/22/2025 1:30 PM EDT Medication Management [facility] MEDICINE [address] [place] [phone] Rosmery Quiles PharmD [address] [place] [address] documented as of this encounter Visit Diagnoses Not on filedocumented in this encounter Additional Health Concerns Assessment Noted Time PHQ-9 Depression Total Score: 0 11/13/19 23 2:46 PM EDT documented as of this encounter Care Teams Volleyball Coach Relationship Specialty Start Date End Date Melinda Krishnan MD [address] [place] [address] PCP - General Family Medicine 09/06/20 Rosmery Quiles, HopeD [address] [place], [place] [phone] Pharmacist Internal Medicine 02/01/24 documented as of this encounter
--- OUTSIDE RECORDS SUMMARY | 2025-04-26 09:48 | XMS_ITS | Encounter Summary ---
Author Organization [employer] Address [address] [facility] 7t [place] [address] Care Team Providers Care Clay Press Operator Name Role Phone Melinda Krishnan MD Primary Care Provide r Rosmery Quiles PharmD Unavailable [phone] Reason for Visit * Reason Comments Med Refill Encounter Details Date Type Department Care Team (Late st Contact Info) Description 05/08/[address] [facility] MEDICINE [address] [place] [address] Melinda Krishnan MD 230 [place], [place] [phone] Pain in left shoulder Social History Tobacco [...] 1:45 PM EDT Telemedicine [facility] MEDICINE [address] [place] [address] Melinda Krishnan MD [address] [place] [address] 05/22/2025 12:45 PM EDT Office Visit [facility] ADULT DENTAL [address] [place] [phone] Norma, [place] [address] [place] [address] 05/22/2025 1:30 PM EDT Medication Management [facility] MEDICINE [address] [place] [phone] Rosmery Quiles PharmD [address] [place] [address] documented as of this encounter Visit Diagnoses Diagnosis Pain in left shoulder documented in this encounter Additional Health Concerns Assessment Noted Time PHQ-9 Depression Total Score: 0 11/13/19 23 2:46 PM EDT documented as of this encounter Care Teams Clay Press Operator Relationship Specialty Start Date End Date Melinda Krishnan MD [address] [place] [phone] PCP - General Family Medicine 09/06/20 Rosmery Quiles PharmD [address] [place] [address] Pharmacist Internal Medicine 02/01/24 documented as of this encounter
[2025-04-26 11:49] LABS: Alanine Aminotransferase 11 U/L (0-31); Albumin Level 4.2 g/dL (3.5-5.0); Alkaline Phosphatase 77 U/L (39-117); Aspartate Amino Transferase 27 U/L (5-31); Cholesterol 213 mg/dL (<200); HDL Cholesterol 55 mg/dL (>40); Total Protein 7.1 g/dL (6.5-8.0); Triglycerides 169 mg/dL (<150)
== END 2025-04-26 09:07 | disposition home or self-care (01) ==
LOC: HO.HHCL 09:06
PROVIDERS: Internal Medicine; PCP Student in an Organized Health Care Education/Training Program; Visit Provider Student in an Organized Health Care Education/Training Program
DX: E11.65 Type 2 diabetes mellitus with hyperglycemia (principal)
CPT/HCPCS: 36415; 80061; 80076

== ENCOUNTER 2025-05-03 13:12 | Outpatient (AMB) | payer OTHER, SELFPAY ==
--- NOTE | 2025-05-03 13:19 | A.OFFVIS_ITS ---
Vital Signs 05/03/25 13:20 Height 5 ft 1 in Weight 132 lb 4.438 oz BMI 25.0 Intake Visit Reasons: s/p WLE lipoma~ Rt mid back Intake Note: This patient presents for a follow-up assessment for suture removal status post WLE lipoma right mid back. Pt c/o; no complaints. Office procedure: Excision WLE lipoma right mid back 04/19/2025 Asphalt Mixing Machine Operator Required: Yes Asphalt Mixing Machine Operator Language: Manager [employer]way Services: Asphalt Mixing Machine Operator Present Asphalt Mixing Machine Operator Name: Gisella Accompanied by: Self / Same As Patient Allergies codeine (Codeine) Allergy (Mild, Verified 05/03/25 13:20) DIZZINESS, VOMITING insulin lispro (INSULIN LISPRO) Allergy (Unknown, Verified 05/03/25 13:20) NAUSEA & VOMITING oxycodone (OXYCODONE) Allergy (Unknown, Verified 05/03/25 13:20) NAUSEA & VOMITING HPI HPI s/p WLE lipoma~ Rt mid back: Details: She underwent excision of lipoma from the back under local anesthesia last 04/19/2025. She tolerated the procedure well and currently denies significant complaints. 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 fibrosis Chronic respiratory failure Pressure ulcer of sacral region, stage 2 DVT, bilateral lower limbs Fungal dermatitis High cholesterol Atherosclerotic cardiovascular disease HLD (hyperlipidemia) HTN (hypertension) T2DM (type 2 diabetes mellitus) COPD (chronic obstructive pulmonary disease) Pulmonary nodules Asthma Hyperlipidemia, unspecified Type 2 diabetes mellitus with unspecified complications Essential hypertension Angina pectoris Bursitis of right shoulder Surgical History S/P excision of lipoma History of bunionectomy History of total abdominal hysterectomy and bilateral salpingo-oophorectomy Hx of colonoscopy Family History Mother HTN (hypertension) Brother Lung cancer Daughter Breast cancer Maternal Aunt Breast cancer Daughter Eye cancer Social History Household Members: None Housing: Apartment Housing Other:: [facility] Are you a primary childcare provider to a significant other at home: No Do 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 have 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 or other home services: Yes (commercial green building architect) Alcohol intake: current Alcohol intake frequency: holidays/special occasions only Comment: PT SLEEPING Patient Tobacco Use Status: Former Tobacco user Second Hand Smoke Exposure: No Advance Directives Date on File: 08/27/20 service: No Current occupational status: retired Review of Systems Const Denies chills and Denies fever(s) Physical Exam Vital Signs: BMI result Body Mass Index 25.0 Const General: comfortable and no acute distress Resp Effort & Inspection: normal respiratory effort Back/Spine/Pelvis Other: Excision site is well healing, not infected, no hematoma, no cellulitis Assessment & Plan Assessment & Plan (1) Lipoma of back: Code(s): D17.1 - Benign lipomatous neoplasm of skin and subcutaneous tissue of trunk Category: Medical Plan: Status post excision. The incision is well healed. Her sutures were removed. Her path report shows a lipoma. She can follow up on a p.r.n. basis. Coding Level of Care Code Global (44011) Diagnoses Lipoma of back D17.1
[2025-05-03 13:20] VITALS: BMI 25.0
== END 2025-05-03 13:30 | disposition home or self-care (01) ==
LOC: HO.HGS 13:13
PROVIDERS: PCP Internal Medicine; Visit Provider Surgery
DX: D17.1 Benign lipomatous neoplasm of skin and subcutaneous tissue of trunk (principal)
CPT/HCPCS: 99024

== ENCOUNTER → 2025-05-03 13:12 | Outpatient (BNVA) | payer OTHER, SELFPAY | PROVIDERS: PCP Internal Medicine; Visit Provider Surgery | DX: D17.1 Benign lipomatous neoplasm of skin and subcutaneous tissue of trunk (principal) | CPT/HCPCS: 99212 ==

== ENCOUNTER 2025-05-05 13:12 | Outpatient (AMB) | payer OTHER, SELFPAY ==
[2025-05-05 13:40] VITALS: BP 146/60; PULSE 82; O2SAT 95; BMI 25.0
--- NOTE | 2025-05-05 13:40 | MHC.OFFVIS ---
Vital Signs 05/05/25 13:40 Height 5 ft 1 in Weight 132 lb 4.438 oz BMI 25.0 BP 146/60 H Blood Pressure Location Lt brachial Position Sitting Pulse 82 Pulse Source Pulse Oximeter Pulse Oximetry (%) 95 Oxygen Delivery Method Room Air Intake Visit Reasons: COPD Accompanied by: Self / Same As Patient Allergies codeine (Codeine) Allergy (Mild, Verified 05/05/25 13:44) DIZZINESS, VOMITING insulin lispro (INSULIN LISPRO) Allergy (Unknown, Verified 05/05/25 13:44) NAUSEA & VOMITING oxycodone (OXYCODONE) Allergy (Unknown, Verified 05/05/25 13:44) NAUSEA & VOMITING HPI Comments Details: The patient is an 84-year-old woman with a known history of underlying pulmonary nodules. She was evaluated in the past by thoracic surgery at [facility]. She did undergo a PET scan and numerous CT scans demonstrating extensive nodular densities both lungs. She did not undergo any diagnostic interventions at that point. However, she was told that if the density grew that she would need to have a biopsy. she did not follow up further. Subsequently after that she did follow-up with Pulmonary which she had x-rays done at [facility]. Her x-rays did again demonstrate significant nodular opacities. No further testing was done per the patient. In the meantime she does have issues with cough and some shortness of breath. She denies any night sweats and denies any underlying fevers. I did review her CT scans from [facility] back in 2013. I also reviewed the x-rays from [facility]. At this point based on her underlying symptoms in the significant nodular densities and the abnormal chest x-rays the patient needs to have a repeat CT scan of the chest. 12/31/2020 the patient is here for pulmonary hospital follow-up visit. The patient was admitted to the hospital the end of July with severe COVID requiring a prolonged hospital stay due to the high oxygen requirements. The patient was able to be discharged to rehab now she is recuperating. Her oxygen requirement has decreased down to 2 L. she continues to use her respiratory medicine with good effect. While in the hospital she did have a DVT primarily involving her lower extremities. repeat CT a demonstrated no evidence of any pulmonary emboli. The patient was treated effectively for blood clots, although, she is no longer on anticoagulation. Just Plavix. At this point we have to make sure that she does not have any residual nonocclusive clots which will require additional anticoagulation. 04/02/2021 the patient is here for pulmonary follow-up visit. Overall the patient has been doing well. She continues use the oxygen with good response. She feels much improved from the severe COVID infection that she had. She has a hard time carrying her oxygen tanks with her multiple comorbidities and the fact that she uses a walker is hard for her to even put the oxygen tank on the walker. We did go for 6 minute walk test the patient did much better. she was able to ambulate for 6 minutes and after 4 minutes she did desaturate down to 88%. She was placed on 2 L nasal cannula improving her pulse ox to 96% with activity in the 98% on 2 L at rest. Patient will qualify in do very well with a conserving device. Therefore I will send the information over to her DME company, [employer] in order to get her on a B cylinder with a pulse valve. She does have the albuterol rescue inhaler that she has not use. She also continues to be on a small dose of Eliquis. 06/07/2021 the patient is here for a pulmonary follow-up visit. The patient has been having difficulties with her oxygen supplementation. Initially we had sent her prescription for her to start small cylinders that she could use with activity and also the concentrator in the home. But she was reluctant to do so. However, she continues to have dyspnea on exertion moderate severity. The patient needs the oxygen. She needs better portability. She has a hard time caring the oxygen tanks and asked why she was reluctant to take it in the 1st place. I did have her go for 6 minute walk test. Patient did desaturate to 88% on room air. She still qualifies for the oxygen. Conserving device would be the better option for her. The patient is agreeable to starting the oxygen at this time. I will send a script to her local DME company in order to do so. I will also request a portable oxygen concentrator for her to start the process to continue providing her better portability outside of the home. Her last chest x-ray still demonstrates significant reticulonodular densities which is the result of the COVID 19 lung infection. The patient will have a repeat chest x-ray to assess the degree of interstitial lung disease. Will also request pulmonary function studies to see her lung capacity at this time. 08/15/2021 the patient is here for a pulmonary follow-up visit. The patient has been doing well. She did have pulmonary function studies today. They appear that she does have a restrictive ventilatory defect from the interstitial lung disease That was the results of the COVID-19. This has resulted in a decreased diffusing capacity. . However, clinically the patient is appears to be doing better she is using the oxygen continuously. I did recommend that she only use it with activity. We did remove the oxygen while she is in the office and she maintain a pulse ox in the 90s and that was reassuring. The patient does need better portability. The oxygen tanks are not able to give her in off portability outside of the home. She needs to get a portable oxygen concentrator in in order to be able to have the portability that she needs outside of the home and also be able to travel. I am requesting a battery operated portable oxygen concentrator for the patient through her [employer] company at this time. the patient does have a rescue inhaler that she rarely uses. She does not have any maintenance therapy. 03/06/2022 the patient is here for a pulmonary follow-up visit. Overall she is doing well. She continues use the oxygen with a pulse valve 2 L pulse with good effect. She initially was getting her oxygen through [employer]. Although, recently changed to reliable respiratory due to the contracture all issues between her insurance company in her previous DME company. The patient was in the process of trying to get a portable oxygen concentrator. Portable oxygen concentrator will provide her with better portability outside of the home specially with significant arthritis difficult carry the tanks and handle the tank valves. Therefore, will submit a prescription for portable oxygen concentrator to her new DME company in order for them to start the process. The patient did have a chest x-ray which I personally reviewed with her. She does have interstitial changes but appeared to be stable. She also has pulmonary nodules appreciated. The nodules were also visualized before. In view of the pulmonary nodules she will need to have a repeat CT scan of the chest. Her last CT scan was back in July 2020 and therefore will have get a CT scan prior to her next visit. 06/16/2022 the patient is here for pulmonary follow-up visit. Overall she is doing relatively well. She is still complaining that she has not been able to get a portable oxygen concentrator. The patient does have a large tank with her with a conserving valve. I did provide her with a small piece then there are tank that she can use with concern valve. I gave her prescription she will talk to the [employer] tomorrow. Please the be 7 the require better with better portability as she Wait for the portable oxygen concentrator. The patient did undergo a CT scan of the chest personally by me. She has stable pulmonary nodules. Overall, she has new nodules be followed. She has also cavitary disease and cystic lesions. Lot of it is related to her significant COVID infection with some residual findings. Immune not do will need to be followed closely. The patient continues use respiratory therapy with good effect. Will go ahead and follow-up in the springtime and will repeat 6 minutes walk test the time. I am hopeful that if she continues to improve hopefully we can wean her off the oxygen altogether. 10/13/2022 the patient is here for a pulmonary follow-up visit. Overall she is doing well. She continues use the oxygen. Unfortunately she was switched over to a [employer] company that does not provide portable oxygen concentrator is. Therefore she is using the small P 70s with good effect. She does have a planned trip scheduled to [place]. Before that she will need to leaks a portable oxygen concentrator from the [employer] company. We did review her last CT scan of the chest was back in the summer of 2021 demonstrating some new pulmonary nodules in some that were cavitated. The patient has had significant weight loss. This has been non intentional. Therefore, plan to repeat the CT scan of the chest sometime in the summer of 2022 or sooner if she develops worsening symptoms. In part the patient is having significant tooth decay after having COVID. Is likely related. She was given protein shakes by her insurance company in order to try to maintain her weight and her caloric intake. 02/09/2023 the patient is here for a pulmonary follow-up visit. Overall the patient is doing well. She found that her portable oxygen concentrator. She does not like the battery life but it is reasonable. The patient does not need it all the time just with activity and therefore she can limit the battery lysed. She also needs a property claims manager for the car. The patient has a planned trip to [place] which I believe at this point is reasonable if she can wait till the fall when is less hot and the humid. The patient also underwent an imaging study demonstrating stability in the pulmonary fibrosis in the emphysema. The pulmonary nodules also appeared to be stable. She will need another repeat CT scan in 6-8 months because the size of the pulmonary nodules. 08/20/2023 the patient is here for a pulmonary follow-up visit. She had gone to [place] for about 2 months. Before that she was tested and she did not need oxygen which was reassuring. Ultimately when she got to [place] she got sick with COVID and was feeling malaise from that. Although I did not really affect her respiratory status which is reassuring. Subsequently after that she got sick again with mycoplasma lower respiratory infection. She was given antibiotics. And currently she is feeling better. She still has a cough and soreness of the throat but her overall breathing is better. She feels tired. Denies any fevers or chills. She is also having pain of her foot. She did have x-rays demonstrating some screws that she has had placed before. She is wondering if she needs have those screws taken out. She will talk to her primary care doctor. Explained to her that possibly is not related to the screws and she is having some neuropathy. The patient will start just a short course of antibiotics for her persistent cough to make sure that we treat the mycoplasma completely. She is also has pulmonary nodules and she is scheduled for CT scan sometime in August. Therefore will be able to assess any potential changes at that point. 11/25/2024 the patient is here for pulmonary follow-up visit. Overall she is doing well. The patient denies any worsening respiratory symptoms. She does have the oxygen supplementation. It has been affecting beneficial. Although she finds it a little heavy for her. She was asking about a clay artist device but right now through the [employer] she will be able to get anything clay artist. In meantime the patient continues her respiratory therapist prescribed. She did have a CT scan back in August 2023 which I personally reviewed with her. Her nodules appear stable. She does have emphysema she has not residual scarring likely from the COVID infection she had back in 2020. Overall the patient is doing well she will continue with the current respiratory therapy will follow-up in 6 months. 05/05/2025 the patient is here for pulmonary follow-up visit. Overall she is doing okay from a respiratory status. She continues use the oxygen at times. It does provide her some relief. The oxygen therapy has been affecting beneficial for her. In the meantime she did have a lipoma that was growing and she did have it excised. The areas red and tender and she is taking some Motrin but still uncomfortable. The borders looked erythematous and tender with a slight area of exudate. I will send him some doxycycline to help her heal the area further. Otherwise the patient is without any other complaints. She will follow-up in 6-8 months if any issues arise she can always call for an earlier assessment. 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 Pulmonary fibrosis Chronic respiratory failure Pressure ulcer of sacral region, stage 2 DVT, bilateral lower limbs Fungal dermatitis High cholesterol Atherosclerotic cardiovascular disease HLD (hyperlipidemia) HTN (hypertension) T2DM (type 2 diabetes mellitus) COPD (chronic obstructive pulmonary disease) Pulmonary nodules Asthma Hyperlipidemia, unspecified Type 2 diabetes mellitus with unspecified complications Essential hypertension Angina pectoris Bursitis of right shoulder Surgical History S/P excision of lipoma History of bunionectomy History of total abdominal hysterectomy and bilateral salpingo-oophorectomy Hx of colonoscopy Family History Mother HTN (hypertension) Brother Lung cancer Daughter Breast cancer Maternal Aunt Breast cancer Daughter Eye cancer Social History Household Members: None Housing: Apartment Housing Other:: [facility] Are you a primary career development associate to a significant other at home: No Do 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) Alcohol intake: current Alcohol intake frequency: holidays/special occasions only Comment: PT SLEEPING Patient Tobacco Use Status: Former Tobacco user Second Hand Smoke Exposure: No Advance Directives Date on File: 08/27/20 service: No Current occupational status: retired Review of Systems Const Denies chills, Denies fatigue, Denies fever(s), Denies weight gain and Denies weight loss ENT Denies dizziness Card Denies chest pain, Denies leg edema, Denies lightheadedness, Denies palpitations, Denies dyspnea on exertion, Denies orthopnea and Denies other Resp Denies cough and Denies dyspnea on exertion GI Denies hematochezia and Denies change in stool character Musc Denies abnormal gait, Denies muscle weakness, Denies numbness, Denies radiating pain into limb and Denies tingling Neuro Denies abnormal gait, Denies dizziness, Denies numbness and Denies tingling Endo Denies fatigue and Denies palpitations Physical Exam Vital Signs: Last Vital Signs Pulse 82 05/05/25 13:40 BP 146/60 H 05/05/25 13:40 Pulse Ox 95 05/05/25 13:40 Oxygen Delivery Method Room Air 05/05/25 13:40 BMI result Body Mass Index 25.0 Const General: alert Eyes Pupils: Equal, round and reactive pupils present Neck Neck: Yes normal visual inspection, Yes full ROM and Yes no lymphadenopathy Chest Chest palpation & inspection: normal inspection of the chest Resp Effort & Inspection: normal respiratory effort Auscultation: no crackles and diminished lung sounds Cardio Rate: regular rate Rhythm: regular rhythm Heart sounds: S1 normal heart sound present and S2 normal heart sound present GI Palpation (GI): Soft to palpation and nontender Auscultation: normal bowel sounds Skin General skin exam: rashes and/or lesions noted Neuro Cranial nerves: Yes Equal, round and reactive pupils present Results Reviewed Results Reviewed: [place] [address] CT Scan Report Signed Patient: Ana Varghese MR#: [id number] : 1940 Acct:[id number] Age/Sex: 82 / F ADM Date: 09/04/23 Loc: HO.CT Attending Dr: Varsha Busby PA-C Ordering Physician: Myles Busby MD Date of Service: 09/04/23 Procedure(s): CT chest wo IV con Accession Number(s): [id number] cc: Melinda Krishnan MD; Myles Busby MD~ EXAMINATION: CT CHEST WITHOUT CONTRAST CLINICAL INFORMATION: Solitary pulmonary nodule COMPARISON: Previous CTs, most recent, 01/21/2023. TECHNIQUE: Multidetector volumetric CT imaging of the chest was done. Axial MIP volume rendering provided. Sagittal and coronal reformatted images were obtained. This CT examination was performed using dose optimization techniques as appropriate, variously including the following: *Automated exposure control *Adjustment of mA and/or kV according to patient size (this includes techniques or standardized protocols for targeted exams where dose is matched to indication/reason for exam; i.e. 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 Clear lungs. LUNGS: Trachea and bronchi are patent. Redemonstration centrilobular emphysema,, biapical pleural thickening and scattered subpleural reticular changes. Bullous disease and multiple parenchymal cysts, largest measuring 1.6 mm in the left lower lobe, with unchanged posterior thickening/layering fluid, 5:411. Multiple unchanged nodules with calcifications including in the right lower lobe: 1.6 cm on 5:322, 9 mm, 5:319 and 1.1 cm, 5:350. 8mm in the left lower lobe, 5:392. 5 and 3 mm RUL noncalcified nodules on 5:199 and 5:255, respectively. MEDIASTINUM: Nonenlarged thyroid. Nonspecific mediastinal lymph nodes. No pathologic lymphadenopathy. Nonenlarged heart. No pericardial effusion. Atherosclerotic calcifications nonaneurysmal aorta. Nonenlarged pulmonary arteries. CORONARY ARTERY CALCIFICATION: Moderate. PLEURA: There is no pleural effusion. No pleural mass or thickening. AXILLA/CHEST WALL: No lymphadenopathy. Benign appearing bilateral breast calcifications. UPPER ABDOMEN: Unremarkable. OSSEOUS STRUCTURES: Unremarkable. CT/CT chest wo IV con IMPRESSION: Unchanged emphysema, chronic reticular markings, bullous and cystic changes. Multiple stable calcified and noncalcified pulmonary nodules. Dictated By: Itzel Kirby MD Signed By: <Electronically signed by Itzel Kirby MD in OV> 09/08/23 1610 Assessment & Plan Assessment & Plan (1) Chronic respiratory failure: Code(s): J96.10 - Chronic respiratory failure, unspecified whether with hypoxia or hypercapnia Category: Medical Qualifiers: Respiratory failure complication: hypoxia Qualified Code(s): J96.11 - Chronic respiratory failure with hypoxia (2) COPD (chronic obstructive pulmonary disease): Code(s): J44.9 - Chronic obstructive pulmonary disease, unspecified Category: Medical Qualifiers: COPD type: chronic bronchitis Chronic bronchitis type: simple Qualified Code(s): J41.0 - Simple chronic bronchitis (3) DVT, bilateral lower limbs: Code(s): I82.403 - Acute embolism and thrombosis of unspecified deep veins of lower extremity, bilateral Category: Medical Qualifiers: Affected thrombotic vein of extremity: other lower extremity vein Chronicity: chronic Qualified Code(s): I82.593 - Chronic embolism and thrombosis of other specified deep vein of lower extremity, bilateral (4) Pulmonary nodule: Code(s): R91.1 - Solitary pulmonary nodule Category: Medical Plan Holding oxygen at this time FAUSTINO as needed Doxycycline for skin follow-up 6 months Medications: New doxycycline hyclate 100 mg PO BID 10 days 20 caps 0RF doxycycline hyclate 100 mg PO BID 20 caps 0RF 10 days Coding Level of Care Code Est Pt Level 4 (65364) Complex EM visit Add On G2211 Diagnoses Chronic respiratory failure with hypoxia J96.11 Respiratory failure complication: hypoxia Simple chronic bronchitis J41.0 COPD type: chronic bronchitis Chronic bronchitis type: simple 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
== END 2025-05-05 14:04 | disposition home or self-care (01) ==
LOC: HO.HPS 13:13
PROVIDERS: PCP Internal Medicine; Visit Provider Hospitalist
DX: J96.11 Chronic respiratory failure with hypoxia (principal); J41.0 Simple chronic bronchitis; I82.593 Chronic embolism and thrombosis of other specified deep vein of lower extremity, bilateral; R91.1 Solitary pulmonary nodule
CPT/HCPCS: 99214; G2211

== ENCOUNTER → 2025-05-05 13:12 | Outpatient (BNVA) | payer OTHER, SELFPAY | PROVIDERS: PCP Internal Medicine; Visit Provider Hospitalist | DX: J96.11 Chronic respiratory failure with hypoxia (principal); J44.9 Chronic obstructive pulmonary disease, unspecified; I82.593 Chronic embolism and thrombosis of other specified deep vein of lower extremity, bilateral; R91.1 Solitary pulmonary nodule; J41.0 Simple chronic bronchitis | CPT/HCPCS: 99212 ==